=== PATIENT | female | born 1960 | race Caucasian/White ===

== ENCOUNTER 2018-11-24 09:51 | Observation (INO) | payer MEDICARE, SELFPAY ==
[2018-11-24] VITALS (21 sets, daily range): BP systolic 126–184; BP diastolic 66–98; PULSE 53–68; RESP 15–18; TEMP 36.7–37; O2SAT 95–99; BMI 30.2; BMI 31.1
--- NOTE | 2018-11-24 09:56 | RAD_ITS ---
STUDY: X-RAY CHEST REASON FOR EXAM: Female, 58 years old. Chest pain. TECHNIQUE: Single AP portable view of the chest. COMPARISON: Comparison is made with prior study dated December 20, 2013. FINDINGS: EKG electrodes are seen. The lungs are clear and expanded. There is no demonstrated pleural abnormality. Normal size heart. Normal mediastinum and tyra. Normal visualized pulmonary arteries. There is atherosclerotic calcification of the aortic arch with tortuosity. There are diffuse degenerative changes of the visualized thoracic spine. Normal visualized ribs, clavicles, and shoulders. There is no demonstrated abnormality of the visualized soft tissue structures of the upper abdomen. RAD/Chest 1 View (Portable) IMPRESSION: No acute abnormality is seen. Electronically Signed: Sher Andersen MD at 10:34 EST , Service support ,
--- NOTE | 2018-11-24 09:56 | EKG12_ITS ---
Test Reason : CP Blood Pressure : / mmHG Vent. Rate : 053 BPM Atrial Rate : 053 BPM P-R Int : 218 ms QRS Dur : 088 ms QT Int : 442 ms P-R-T Axes : 041 081 057 degrees QTc Int : 414 ms Sinus bradycardia with 1st degree A-V block Otherwise normal ECG Confirmed by CAROLYN GREWAL, RAIZA ([id number]), manuscript editor VARUN SANDOVAL ([id number]) on 11/27/2018 3:22:45 PM Referred By: Abraham Mccracken Confirmed By:RAIZA LEON MD
[2018-11-24 10:07] LABS: Absolute Lymphocyte Count 3.77 X10^3/ul (0.83-4.51); Absolute Neutrophil Count 5.9 X10^3/uL (2.0-7.7); Basophil# 0.02 X10^3/uL; Basophil% 0.2 % (0-1); Eosinophil# 0.13 X10^3/uL; Eosinophils% 1.3 % (0-5); Lymphocyte # 3.77 X10^3/ul (4.0); Lymphocyte % 36.4 % (19-41); Mean Corp Hgb Conc 34.1 g/gl (32-36); Mean Corpuscular Hgb 31.2 pg (27.0-32.0); Mean Corpuscular Volume 91.3 fL (81-99); Mean Platelet Vol. 9.8 fl (6.2-12.0); Monocyte# 0.58 X10^3/uL; Monocyte% 5.6 % (0-10); Neutrophil # 5.85 X10^3/uL (2.7-7.7); Neutrophil % 56.3 % (47-70); Platelet Count 254 K/mm3 (150-450); RBC Distribution Width CV 12.2 % (11.6-14.6); RBC Distribution Width SD 40.4 fl (35.1-43.9); Red Blood Count 4.49 M/mm3 (4.2-5.4); White Blood Count 10.4 K/mm3 (4.4-11.0)
[2018-11-24 10:10] LABS: POSITIVE COUNT NO; POSITIVE DIFFERENTIAL NO; POSITIVE MORPHOLOGY NO
[2018-11-24 10:17] LABS: Anion Gap 9 (5-15); BUN 11 mg/dL (7-18); BUN/Creat Ratio 21.3 RATIO (10-20); Chloride 104 mmol/L (98-107); Creatinine, Serum 0.52 mg/dL (0.55-1.02); EST Glomerular Filtration Rate 129 mL/min (>60); Est Glom Filt Rate - Afr Amer 156 mL/min (>60); Estimated Creatinine Clearance 83.67 ml/min; Glucose 110 mg/dL (74-106); Potassium 3.2 mmol/L (3.5-5.1); Sodium Level 141 mmol/L (136-145)
--- NOTE | 2018-11-24 11:23 | PCM.HP.STD ---
Problem List (1) Chest pain Status: Acute (2) Essential (primary) hypertension Status: Chronic (3) Dyslipidemia Status: Chronic (4) Crohns disease Status: Chronic History of Present Illness Date of Admission: 11/24/18 Chief Complaint: Chest pain The patient is a 58 year old F medical history is again for hypertension, dyslipidemia previous tobacco use (did quit 2 months prior to admission) who presents with chest pain. Patient reports 1 month history of intermittent chest pain. She has associated chest pain with activity she does notice increasing pain with minimal activity. She also does complain of intermittent lightheadedness. Patient was scheduled to have undergone stress test by Dr. Avila as outpatient he however did complain of chest pain prior to the procedure patient was therefore sent to the ED. In the emergency department initial set of cardiac enzymes came back unremarkable. Given her significant risk factors decision was made to admit patient for subsequent evaluation in the hospital. Past Medical History Past Medical History (Chronic Problems): Chronic Problems Essential (primary) hypertension (Chronic) Dyslipidemia (Chronic) Crohns disease (Chronic) Allergies Penicillins [PCN] Allergy (Verified 11/24/18 09:58) Unknown Tetracyclines Adverse Reaction (Verified 11/24/18 09:58) Nausea Home Medications: Ambulatory Orders Medication Instructions Recorded Aspirin [Ecotrin] 81 mg PO DAILY 12/21/13 Esomeprazole Mag Trihydrate 40 mg PO DAILY 12/21/13 [Nexium] Gabapentin [Neurontin] 600 mg PO BID PRN 12/21/13 Lisinopril [Zestril] 10 mg PO DAILY 12/21/13 Atenolol 25 mg PO DAILY 11/24/18 Atorvastatin Calcium [Lipitor] 0 mg PO QHS 11/24/18 Chlorthalidone 25 mg PO DAILY 11/24/18 Mesalamine [Pentasa] 1,000 mg PO 4X/DAY 11/24/18 Surgical History: - - wrist surgery 20 years ago right side Smoking Status: Former smoker - *Family History Paternal History Items: Heart Disease Offspring History Items: Heart Disease - Son had left main disease Review of Systems Constitutional: Denies: Anorexia, Chills, Fever, Night Sweats, Weight Change HEENT: Denies: Head Aches, Sinus Congestion, Sinus Drainage Cardiovascular: Reports: Chest Pain, Light Headedness. Denies: Orthopnea, Palpitations, Paroxysmal Noc. Dyspnea Respiratory: Denies: Cough, Shortness of breath at rest, Shortness of breath upon exertion, Sputum production Gastrointestinal: Denies: Abdominal Pain, Hematemesis, Hematochezia, Nausea, Melena, Vomiting Genitourinary: Denies: Dysuria, Frequency, Hematuria, Urgency Musculoskeletal: Denies: Joint Pain, Joint Tenderness Skin: Denies: Rash Neurological: Denies: Focal weakness, Numbness, Tingling Psychiatric: Denies: Homicidal Ideations, Suicidal Ideations Hematologic/ Lymphatic: Denies: Easy Bruising, Easy Bleeding VTE Information - Inpt Only VTE Present on Admission: No VTE Mechan Device Prophylaxis: Knee High XIOMARA Hose VTE Pharm Prophylaxis ordered?: Yes Patient Problems: Active and Suspected Problems Chest pain (Acute) Objective: GENERAL: cooperative HEENT: Atraumatic; moist oral mucosa EYES; Anicteric, Normal Conjunctiva NECK; supple, normal thyroid, no distended JVD. RESPIRATORY: Diminished to auscultation bilaterally, CARDIOVASCULAR: Regular S1 S2, no audible murmurs GI: soft, non-tender, normoactive bowel sounds, : No Renal angle tenderness; EXTREMITIES: No edema, no clubbing, no cyanosis. MUSCULOSKELETAL: No Joint Tenderness; no muscle waisting NEURO: Awake; no lateralizing signs. SKIN: No Rash PSYCH; Normal affect - Physical Exam Vital Signs Temp Pulse Resp BP Pulse Ox 98.2 F 60 15 178/83 H 96 11/24/18 09:52 11/24/18 09:52 11/24/18 09:52 11/24/18 09:52 11/24/18 09:52 Oxygen Delivery Method Room Air Weight: 70.307 kg Body Mass Index (BMI) 30.2 Finger Stick Blood Glucose 92 Laboratory Tests Past 24 Hrs 11/24/18 11/24/18 09:54 09:54 WBC 10.4 RBC 4.49 Hgb 14.0 Hct 41.0 MCV 91.3 MCH 31.2 MCHC 34.1 RDW 12.2 RDW Differential 40.4 Plt Count 254 MPV 9.8 Immature Gran % (Auto) 0.200 Neut % (Auto) 56.3 Lymph % (Auto) 36.4 [place] % (Auto) 5.6 Eos % (Auto) 1.3 Baso % (Auto) 0.2 Absolute Neuts (auto) 5.9 Absolute Lymphs (auto) 3.77 Total Counted Not Reportable Sodium 141 Potassium 3.2 L Chloride 104 Carbon Dioxide 28.0 Anion Gap 9 BUN 11 Creatinine 0.52 L Estim Creat Clear Calc 83.67 Est GFR (MDRD) Af Amer 156 Est GFR (MDRD) Non-Af 129 BUN/Creatinine Ratio 21.3 H Glucose 110 H Calcium 9.0 Magnesium 2.0 Troponin I < 0.015 Assessment/Plan All Active Problems Chest pain (Acute) Patient is a 58-year-old lady with past medical history cigar for hypertension, dyslipidemia Crohn's disease presented with exertional chest pain 1. Chest pain: Has significant risk factors including hypertension, dyslipidemia and previous tobacco use as well as family history of premature CAD. She has been admitted to a monitored bed with plans to rule out MT with serial cardiac enzymes. Plan also patient to have undergone a nuclear stress test in a.m. however given his secondary risk factors consultation was placed to cardiology. Patient already on aspirin did continue 2D echo ordered for subsequent evaluation 2. Hypertension-blood pressure controlled, home medications continued with dose adjustment as needed 3. Dyslipidemia-patient is on statin therapy, continued at home dose 4. Crohn's disease patient is on mesalamine did continue 5. Previous tobacco use patient did quit 2 months prior to admission 6. DVT prophylaxis SC Lovenox Code Visit OBSV E&M: [id number] Initial observation care L3
--- NOTE | 2018-11-24 11:46 | ECHOD_ITS ---
Reason For Study: CP Procedure This was a 2D Doppler, Color Flow transthoracic echocardiogram. The exam was of adequate technical quality. Exam performed portable in patient room. Left Ventricle Normal LV size. Left ventricular systolic function is normal. The estimated ejection fraction is 65 %. Transmitral doppler flow suggestive of impaired relaxation of left ventricle. No regional wall motion abnormalities noted. Right Ventricle Normal RV size. Normal systolic function. Atria Normal left atrium. Normal right atrium. No doppler evidence for ASD. Bubble contrast study negative for right to left interatrial shunt. Mitral Valve There is no mitral annular calcification. Normal mitral valve. Trivial mitral valve insufficiency. Tricuspid Valve Normal tricuspid valve. Trivial tricuspid valve insufficiency. Aortic Valve Trisinus/trileaflet aortic valve. Normal aortic valve. Pulmonic Valve The pulmonic valve is not well visualized. Great Vessels The aortic root is not well visualized. Pericardium/Pleural No pericardial effusion. MMode/2D Measurements & Calculations LVIDd: 4.0 cm IVSd: 1.3 cm LA dimension: 3.9 cm LVIDs: 2.5 cm LVPWd: 0.71 cm FS: 39.1 % LAV(MOD-bp): 37.4 ml LA A4 area: 17.0 cm2 RA A4 area: 13.3 cm2 LAV(MOD-bp) Indexed: 22.2 ml/m2 LAV(MOD-sp2): 31.9 ml LAV(MOD-sp4): 44.5 ml Time Measurements MV dec time: 0.27 sec Doppler Measurements & Calculations MV E max constantino: 90.6 cm/sec Lat Peak E' Constantino: 12.6 cm/sec Med Peak E' Constantino: 8.8 cm/sec MV A max constantino: 111.4 cm/sec E/E' lat: 7.2 E/E' med: 10.3 MV E/A: 0.81 MV V2 max: 102.6 cm/sec MV P1/2t max constantino: 93.6 cm/sec Ao V2 max: 174.5 cm/sec MV max P.2 mmHg MV P1/2t: 94.1 msec Ao max P.2 mmHg MV V2 mean: 55.8 cm/sec MV dec slope: 291.6 cm/sec2 Ao V2 mean: 112.4 cm/sec MV mean P.5 mmHg MVA(P1/2t): 2.3 cm2 Ao mean P.8 mmHg MV V2 VTI: 34.1 cm Ao V2 VTI: 37.1 cm LV V1 max: 151.8 cm/sec PA V2 max: 119.3 cm/sec LV V1 max P.2 mmHg LV V1 mean P.1 mmHg LV V1 mean: 94.8 cm/sec LV V1 VTI: 28.6 cm Interpretation Summary Left ventricular systolic function is normal. The estimated ejection fraction is 65 %. Trivial mitral valve insufficiency. Trivial tricuspid valve insufficiency. Transmitral doppler flow suggestive of impaired relaxation of left ventricle Bubble contrast study negative for right to left interatrial shunt. Ordering Physician: Abraham Mccracken Referring Physician: Abraham Mccracken Performed By: Mahesh Garvey RCS
[2018-11-24 12:00] LABS: D-Dimer Quantitative (DVT/PE) 0.28 FEU/ug/m (0.27-0.49)
[2018-11-24 12:15] LABS: Thyroid Stim Hormone (TSH) 1.75 uIU/mL (0.358-3.74)
--- NOTE | 2018-11-24 12:39 | EKG12_ITS ---
Test Reason : CP ADMIT, CP NOW Blood Pressure : / mmHG Vent. Rate : 060 BPM Atrial Rate : 060 BPM P-R Int : 226 ms QRS Dur : 080 ms QT Int : 440 ms P-R-T Axes : 025 065 037 degrees QTc Int : 440 ms Sinus rhythm with 1st degree A-V block Low voltage QRS (limb leads) Confirmed by ROSITA GREWAL, SHEEBA ([id number]), editor producer VARUN SANDOVAL ([id number]) on 11/26/2018 8:28:47 AM Referred By: Abraham Mccracken Confirmed By:SHEEBA BECKER MD
--- NOTE | 2018-11-24 14:24 | PCM.CONS.C ---
Problem List (1) Unstable angina Status: Acute (2) Dyslipidemia Status: Chronic (3) Essential (primary) hypertension Status: Chronic (4) Crohns disease Status: Chronic (5) Bilateral carotid bruits Status: Acute Reason for Consult Date of Consultation: 11/24/18 History of Present Illness: The patient is a 58 year old white female with a past medical history of hyperlipidemia, hypertension, and Crohn's disease who presents for symptoms concerning for unstable angina pectoris. The patient states for some time now she has been having waxing and waning chest discomfort. This involves the left chest, left axillary area, and left upper extremity with associated left upper extremity paresthesias. She can feel somewhat more short of breath with this. She has had episodes of dizziness. She has had no near syncope or syncope. She has been evaluated by her PCP and at one time told her heart rate was slower than usual . She was referred to [facility] cardiology for evaluation. There she was scheduled for an outpatient transthoracic echocardiogram and exercise tolerance test. She states today she was having recurrent discomfort when she arrived for her outpatient study at the [facility] center. She was told at that time she was high risk and was referred to the [facility] emergency department for further evaluation and care as an inpatient including consideration for diagnostic cardiac catheterization. She has denied orthopnea or PND or peripheral pitting edema. She states that she does have gastrointestinal related issues with her Crohn's disease. Otherwise she believes she has been relatively active. She notes that she has undergone evaluation in the past. Based upon medical records received it appears that in December 2014 she had a myocardial perfusion scan performed which was reported as demonstrating no evidence of myocardial ischemia or scarring with a gated LVEF of 65%. The details of the entire report are unavailable at this time for review. She does note that her father had a history of CAD, CABG, and a permanent pacemaker. She also notes her son, who in a motor vehicle accident, on organ donation evaluation was subsequently given a diagnosis of having premature CAD with a maker lesion. [] Past Medical History Allergies/Adverse Reactions: Allergies Penicillins [PCN] Allergy (Verified 11/24/18 09:58) Unknown Tetracyclines Adverse Reaction (Verified 11/24/18 09:58) Nausea Home Medications: Ambulatory Orders Medication Instructions Recorded Aspirin [Ecotrin] 81 mg PO DAILY 12/21/13 Esomeprazole Mag Trihydrate 40 mg PO DAILY PRN 12/21/13 [Nexium] Gabapentin [Neurontin] 600 mg PO BID PRN 12/21/13 Lisinopril [Zestril] 10 mg PO DAILY 12/21/13 Atenolol 25 mg PO DAILY 11/24/18 Atorvastatin Calcium [Lipitor] 20 mg PO QHS 11/24/18 Chlorthalidone 25 mg PO DAILY 11/24/18 Levothyroxine Sodium 50 mcg PO DAILY 11/24/18 Mesalamine [Pentasa] 1,000 mg PO 4X/DAY 11/24/18 Past Medical History (Chronic Problems): Chronic Problems Essential (primary) hypertension (Chronic) Dyslipidemia (Chronic) Crohns disease (Chronic) Surgical History: - - wrist surgery 20 years ago right side - *Family History Paternal History Items: Heart Disease Offspring History Items: Heart Disease - Son had left main disease Lives: Spouse/ Significant Other Smoking Status: Former smoker Alcohol: None Drugs: None Review of Systems - Review of Systems General: Denies: Fever, Night Sweats, Fatigue Cardiovascular: Reports: Chest Discomfort, Chest Discomfort at Rest, Shortness of Breath, Shortness of Breath at Rest, Dizziness. Denies: Orthopnea, PND, Peripheral Edema, Palpitations, Lightheadedness, Near Syncope, Syncope Respiratory: Reports: Shortness of Breath. Denies: Cough, Sputum Production, Hemoptysis Gastrointestinal: Denies: Hematemesis, Hematochezia, Melena Genitourinary: Denies: Dysuria, Hematuria Skin: Denies: Rash Subjectve: Is a 58-year-old white female who appears to be resting comfortably at the moment in no acute distress. However she does complain of waxing and waning left-sided chest/left axillary discomfort. Objective: Vital Signs Temp Pulse Resp BP Pulse Ox 98.0 F 56 L 16 145/66 H 98 11/24/18 11:53 11/24/18 12:34 11/24/18 11:53 11/24/18 12:34 11/24/18 12:38 Oxygen Delivery Method Room Air Weight: 158 lb 8.198 oz Body Mass Index (BMI) 31.1 Finger Stick Blood Glucose 92 General: Awake, Alert, Oriented x 3, Cooperative, No Acute Distress, Ill Appearing HEENT: Atraumatic, Normocephalic, PERRL, EOMI, Sclera Non Icteric Oral: Moist Mucosa Neck: Supple, Good ROM, No JVD Lungs: Clear to auscultation Cardiovascular: Regular Rhythm, Normal S1, Normal S2 Vascular: John Carotid Artery Bruits Abdomen: Bowel Sounds Present, Soft, Non Tender Extremities: No Cyanosis, No Clubbing, No edema Neurological: No Focal Motor or Sensory Deficit Psych/Mental Status: Appropriate 11/24/18 09:54: WBC 10.4, RBC 4.49, Hgb 14.0, Hct 41.0, MCV 91.3, MCH 31.2, MCHC 34.1, RDW 12.2, RDW Differential 40.4, Plt Count 254, MPV 9.8, Immature Gran % (Auto) 0.200, Neut % (Auto) 56.3, Lymph % (Auto) 36.4, [place] % (Auto) 5.6, Eos % (Auto) 1.3, Baso % (Auto) 0.2, Absolute Neuts (auto) 5.9, Total Counted Not Reportable 11/24/18 09:54: Sodium 141, Potassium 3.2 L, Chloride 104, Carbon Dioxide 28.0, Anion Gap 9, BUN 11, Creatinine 0.52 L, Est GFR (MDRD) Af Amer 156, Est GFR (MDRD) Non-Af 129, BUN/Creatinine Ratio 21.3 H, Glucose 110 H, Calcium 9.0, Magnesium 2.0, Troponin I < 0.015 11/24/18 09:54: D-Dimer Quant (PE/DVT) 0.28 11/24/18 13:35: Troponin I < 0.015 Rhythm: Sinus rhythm EKG: Sinus rhythm; first-degree AV block; low voltage QRS ECHO: Pending CXR: Preliminary evaluation: No acute cardiopulmonary disease process appreciated; please see official report Assessment/Plan 1. Unstable angina pectoris The patient presents with symptoms, not otherwise explained, concerning for unstable angina pectoris. She was to have outpatient noninvasive studies at the [facility] Center however she was deemed, based on her ongoing symptoms, as high risk and recommended for further inpatient evaluation care with diagnostic cardiac catheterization. At the present time the patient continues with waxing and waning left-sided chest and left axillary discomfort. Her initial cardiac enzyme is negative. Her initial ECG demonstrates no acute ECG changes. At the present time she will continue medical therapy. This will include agents such as aspirin, antiplatelet therapy, nitrates, beta-blockers, lipid-lowering agents, anticoagulants, all as deemed appropriate. She is evaluation with a transthoracic echocardiogram as well. However in the interim it would not be unreasonable to consider the patient for further evaluation with diagnostic cardiac catheterization. The procedure and risks were discussed with her. She was agreeable to this approach. 2. Hyperlipidemia The patient does have a history of hyperlipidemia. She will continue risk factor evaluation care as deemed appropriate. 3. Hypertension The patient does have history of hypertension. She will need her medications adjusted bring her blood pressure under better control. 4. Crohn's disease The patient does have a history of Crohn's disease. She will continue evaluation care per internal medicine. This may be the etiology of the patient's hypokalemia. She will need her potassium levels supplemented. 5. Carotid artery bruits Of note, the patient does have bilateral carotid artery bruits. This does raise concern of peripheral arterial occlusive disease. She should be considered for further evaluation with a carotid artery duplex study. This note was generated with AnyLeaf dictation software. It may contain incorrect words, spelling, and punctuation that were not noted in checking the note before signing.
--- NOTE | 2018-11-24 14:40 | CASEMGMT ---
According to the [facility] website, the following are in-network tertiary facilities: [facility], [facility], [facility], [facility], [facility], [facility], [facility], [place], [facility], and . Yaa ORTIZ CM
[2018-11-24] MEDS: Atenolol 25 MG Tablet PO (14:54)
[2018-11-24] MEDS: Lisinopril 10 MG Tablet PO (14:54)
[2018-11-24] MEDS: Pantoprazole Sodium 40 MG Tablet PO (14:54)
[2018-11-24] MEDS: Aspirin E.C. 81 MG Tablet PO (14:54)
[2018-11-24] MEDS: TICAGRELOR 90 MG TABLET 180 MG PO (15:10)
--- NOTE | 2018-11-24 15:18 | ED.VISSUMM ---
- ER Visit Summary Date of Service: 11/24/18 Chief Complaint: Chest pain History of Present Illness: The patient is a 58 F who presents with a progressive intermittent chest pain of the left chest that radiates into the left axilla and the back. She saw her primary care physician for this and was referred to [facility] cardiology Dr. Avila. She went there today to have stress testing when she arrived she was experiencing the chest discomfort was given nitroglycerin and resolved. Is felt the patient should come to the hospital for further evaluation. She notes that she did have a nuclear stress test about 5 years ago. She notes all the symptoms initially began with some dizziness and bradycardia. She is a former smoker but states she only smoked for a few years after her son was killed in a car accident. She notes that he on autopsy was found to have a maker lesion. She notes her father had a extensive cardiac history that developed after the age of 55. She also notes a history of hypertension hypercholesterolemia as well as obstructive sleep apnea hypothyroidism and fibromyalgia. Physical Examination: Afebrile vital signs are stable Gen: Well-nourished well-developed Head: Normocephalic atraumatic Eyes: Perrl EOMI ENT: TMs clear no rhinorrhea moist mucous membranes Neck: Supple no lymphadenopathy no JVD nontender CVS: Regular rate rhythm no murmurs normal S1-S2 Respiratory: No distress clear to auscultation bilaterally chest nontender Abdomen: Soft nontender nondistended normal bowel sounds no masses Back: Nontender Extremity: Nontender no edema Skin: Normal color no rash Neuro: alert orientated ?3 CN II-XII intact normal strength sensation reflexes gait cerebellar Psych: Normal affect normal mood Test Results: EKG shows a sinus rhythm at a rate of 53. CBC chemistries troponin were essentially negative potassium 3.2. Chest x-ray no acute findings. Emergency Department Course and Treatment: Patient was discussed with the hospitalist and the patient will be brought into the the hospital. Cardiology consult will be obtained. Impression: 1. Chest pain This note was generated with 3Jam dictation software. It may contain incorrect words, spelling, and punctuation that were not noted in review of the chart prior to signing ED Disposition - Plan for ED Patient: Disposition: Acute Care Hospital [facility] Chief Complaint: Chest Pain
--- NOTE | 2018-11-24 15:53 | CL.D_ITS ---
Patient Name: ISAAC LOPEZ Study Date: 11/24/2018 Performing: Russ Floyd MD Ht: 59.84 inches 152 cm : 1960 Wt: 158.73 lbs 72 kg Age: 58 Gender: female BSA: 1.69 PROCEDURE(S) PERFORMED [id number] CLINICAL PROFILE AND INDICATIONS Indications: Suspected CAD Heart Failure: None Stress/Imaging Stress/Image Study Performed: No Angina Classification Anginal Classification w/in 2 Weeks: CCS IV CAD Presentations: Unstable angina. CONCLUSIONS Elevated Left Ventricular End Diastolic Pressure Normal LV size, wall motion,and systolic function LVEF: by LV gram 65 % RECOMMENDATIONS Risk factor modification Medical therapy Follow up with primary care physician DESCRIPTION OF PROCEDURE The patient arrived to the procedure lab. The risks and benefits of the procedure as well as a full d escription of our services here and current unavailability of surgical backup were fully explained to the patient and/or their significant other prior to the catheterization. The Timeout was completed, verifying the correct patient and procedure. The patient's procedural site was prepped and draped in the usual fashion. Local anesthetic was given subcutaneously to right groin region with Lidocaine 2%. Using a modified Seldinger technique, arterial access was obtained via the right femoral artery, a 4 Fr sheath was inserted Left Coronary Artery selective angiography was performed in multiple views us ing a 4 Fr. JL5 catheter. Right Coronary Artery selective angiography was then performed in multiple views using a 4 Fr. 3DRC catheter. Left Ventriculography was performed in DONALDSON projection using a 4 Fr . Pigtail catheter. LV to AO pullback pressures were then recorded.The arterial sheath was pulled and manual compression applied until hemostasis is achieved. CORONARY ANGIOGRAPHY DOMINANCE: Right Dominant LEFT HEART ASSESSMENT Left Ventricular Ejection Fraction: by LV Gram 65 % Normal LV wall motion Elevated Left Ventricular End Diastolic Pressure LVEDP: 17 mmHg LEFT MAIN: Mild calcification LEFT ANTERIOR DECENDING ARTERY: Mild luminal irregularities PROX LAD: Mild calcification CIRCUMFLEX ARTERY: Angiographically normal RIGHT CORONARY ARTERY: Mild luminal irregularities VALVE FINDINGS: Normal Aortic Valve function Normal Mitral Valve function AORTIC ROOT: Angiographically normal COMPLICATIONS No Complications PROCEDURE MEDICATIONS Versed 1 mg IV Oxygen: 2 L/min via nasal cannula Brilinta 180 mg PO @ 11/24/2018 15:10:16 Potassium Chloride 40 mEq PO 11/24/2018 15:14:11 SUMMARY OF HEMODYNAMIC DATA Time AIR REST ECG 15:14:19 AO 165/92 (123) SA 15:26:47 LV 170/-2, 17 15:34:08 LV 166/-9, 12 15:34:14 LV 185/-5, 21 15:35:20 LVp 174/-5, 21 15:35:25 AOp 172/75 (112) 15:35:30 Signed By Russ Floyd MD On 11/24/2018 15:51:43 Russ Floyd MD
--- NOTE | 2018-11-24 16:00 | NURSING ---
This RN taking over care at this time
--- NOTE | 2018-11-24 17:30 | CDU_ITS ---
Reason For Study: Brut Rt. Velocities/BP Lt. Velocities/BP Prox CCA 99.1/29.9 cm/sec. Prox CCA 97.1/25.1 cm/sec. Mid CCA 97.9/27.6 cm/sec. Mid CCA 94.6/23.4 cm/sec. Dist CCA 79.2/27 cm/sec. Dist CCA 86.2/24.3 cm/sec. Prox ICA 92/18.2 cm/sec. Prox ICA 102/32.2 cm/sec. Mid ICA 99.7/36.4 cm/sec. Mid ICA 78.6/27.9 cm/sec. Dist ICA 83.3/28.7 cm/sec. Dist ICA 68.8/27.4 cm/sec. Rt. ICA/CCA = 1.02. Lt. ICA/CCA = 1.08. Prox ECA 81.5/8.21 cm/sec. Prox ECA 61.1/8.37 cm/sec. Rt. Vert. 75.7/28.2 cm/sec. Lt. Vert. 68/15.2 cm/sec. Right Extracranial There is heterogeneous, smooth atherosclerotic plaque noted in the right common carotid artery. There is heterogeneous, smooth atherosclerotic plaque noted in the right internal carotid artery. There is intimal thickening but no significant atherosclerotic plaque noted in the right external carotid artery. Antegrade flow is noted in the right vertebral artery. Left Extracranial There is homogeneous, smooth atherosclerotic plaque noted in the left common carotid artery. There is heterogeneous, smooth atherosclerotic plaque noted in the left internal carotid artery. There is intimal thickening but no significant atherosclerotic plaque noted in the left external carotid artery. Antegrade flow is noted in the left vertebral artery. Procedure Carotid Duplex [id number]. Exam performed portable in patient room. Interpretation Summary Mild (<50%) stenosis right extracranial internal carotid. Mild (<50%) stenosis left extracranial internal carotid. Flow within the vertebral arteries is antegrade bilaterally. Ordering Physician: Russ Floyd Referring Physician: Negrito Rojas M.D. Performed By: Roseanne Gonzalez RVT, RDCS and Student
[2018-11-24] MEDS: Nitroglycerin Oint 1 INCH PACKET TRANSDERM. (18:09)
[2018-11-24] MEDS: Zolpidem Tartrate 5 MG Tablet PO (21:37)
[2018-11-24] MEDS: Gabapentin 600 MG Tablet PO (21:37)
[2018-11-24] MEDS: Atorvastatin Calcium 20 MG Tablet PO (21:39)
[2018-11-25] VITALS (13 sets, daily range): BP systolic 100–151; BP diastolic 55–80; PULSE 58–72; RESP 16; TEMP 36.3–36.9; O2SAT 95–97
[2018-11-25] MEDS: Nitroglycerin Oint 1 INCH PACKET TRANSDERM. ×2 (00:51→05:27)
[2018-11-25] MEDS: Levothyroxine 50 MCG Tablet PO (05:27)
[2018-11-25 06:52] LABS: Hematocrit 39.6 % (37-47); Hemoglobin 13.7 g/dl (12.0-15.0)
[2018-11-25 07:15] LABS: Anion Gap 8 (5-15); BUN 14 mg/dL (7-18); BUN/Creat Ratio 23.3 RATIO (10-20); Calcium,Total 8.6 mg/dL (8.5-10.1); Chloride 106 mmol/L (98-107); EST Glomerular Filtration Rate 108 mL/min (>60); Est Glom Filt Rate - Afr Amer 131 mL/min (>60); Estimated Creatinine Clearance 114.59 ml/min; Glucose 112 mg/dL (74-106); Potassium 3.4 mmol/L (3.5-5.1); Sodium Level 141 mmol/L (136-145)
[2018-11-25] MEDS: Mesalamine 1.2 GM Tablet 2.4 GM PO (10:02)
[2018-11-25] MEDS: Chlorthalidone 50 MG Tablet 25 MG PO (10:02)
[2018-11-25] MEDS: Enoxaparin 40 MG/0.4 ML Syringe SC (10:03)
[2018-11-25] MEDS: Pantoprazole Sodium 40 MG Tablet PO (10:11)
[2018-11-25] MEDS: Aspirin E.C. 81 MG Tablet PO (10:11)
[2018-11-25] MEDS: Atenolol 25 MG Tablet PO (10:11)
[2018-11-25] MEDS: Lisinopril 10 MG Tablet PO (10:39)
--- NOTE | 2018-11-25 17:12 | PCM.PN.CARD ---
Subjectve: The patient looks better and states she feels better today. She describes no ongoing acute symptoms. Objective: Vital Signs Temp Pulse Resp BP Pulse Ox 97.3 F L 60 16 100/69 96 11/25/18 15:55 11/25/18 15:55 11/25/18 15:55 11/25/18 15:55 11/25/18 15:55 Oxygen Delivery Method Room Air Weight: 158 lb 8.198 oz Body Mass Index (BMI) 31.1 Finger Stick Blood Glucose 92 Intake and Output for Last 24 Hours 11/23/18 11/24/18 11/25/18 23:59 23:59 23:59 Intake Total 780 / 780 600 / 600 Balance 780 / 780 600 / 600 General: Awake, Alert, Oriented x 3, Cooperative, No Acute Distress HEENT: Atraumatic, Normocephalic, PERRL, EOMI, Sclera Non Icteric Oral: Moist Mucosa Neck: Supple, Good ROM, No JVD Lungs: Clear to auscultation Cardiovascular: Regular Rhythm, Normal S1, Normal S2 Vascular: Normal Femoral Pulses Abdomen: Bowel Sounds Present, Soft, Non Tender Extremities: No Cyanosis, No Clubbing, No edema Neurological: No Focal Motor or Sensory Deficit Psych/Mental Status: Appropriate 11/24/18 16:34: Troponin I < 0.015 11/24/18 19:08: Troponin I < 0.015 11/25/18 06:15: Sodium 141, Potassium 3.4 L, Chloride 106, Carbon Dioxide 27.0, Anion Gap 8, BUN 14, Creatinine 0.60, Est GFR (MDRD) Af Amer 131, Est GFR (MDRD) Non-Af 108, BUN/Creatinine Ratio 23.3 H, Glucose 112 H, Calcium 8.6 11/25/18 06:15: Hgb 13.7, Hct 39.6 Rhythm:Sinus rhythm ECHO:Please see official report Carotid artery duplex study: Please see official report Medical Necessity - Tobacco Use Smoking Status: Former smoker Assessment/Plan 1. CAD The patient was found to have minimal to mild luminal irregularities on her diagnostic cardiac catheterization. There did not appear to be obvious findings to explain her symptoms. It does not appear she has known CAD related etiology of her symptoms. At the same time the patient underwent transthoracic echocardiogram. There did not appear to be any obvious findings there to explain her symptoms from a cardiac standpoint. She may need to be considered for further noncardiac evaluation/symptoms of discomfort. In the meantime she does need to continue cardiovascular risk factors evaluation care. 2. Hyperlipidemia The patient does have a history of hyperlipidemia. She will continue risk factor evaluation care as deemed appropriate. 3. Hypertension The patient does have history of hypertension. She will need her medications adjusted bring her blood pressure under better control. 4. Crohn's disease The patient does have a history of Crohn's disease. She will continue evaluation care per internal medicine. This may be the etiology of the patient's hypokalemia. She will need her potassium levels supplemented. 5. Carotid artery bruits Her carotid artery duplex study was reviewed by peripheral vascular surgery. She had mild findings. Thus there was no hemodynamically significant findings to explain any concerns of dizziness or lightheadedness. Overall from a cardiovascular standpoint she is had no acute findings or adverse events. She does not need to continue risk factor evaluation care. She can continue to follow with her primary estimator and drafter supervisor Dr. Ta for further outpatient evaluation of any of her symptoms with respect to possibly dizziness with further noninvasive studies such as ambulatory cardiac rhythm monitors as he had previously discussed with her. Otherwise she may need further evaluation by ENT or neurology. The above was discussed with the patient. She is agreeable to this approach. This note was generated with [employer] software. It may contain incorrect words, spelling, and punctuation that were not noted in checking the note before signing.
--- NOTE | 2018-11-25 17:13 | PCM.DC ---
- Discharge Diagnoses Current Active Problems: Current Active and Chronic Problems Chest pain (Acute) Essential (primary) hypertension (Chronic) Dyslipidemia (Chronic) Crohns disease (Chronic) Unstable angina (Acute) Bilateral carotid bruits (Acute) You will use the following diet at home:: Regular Instructions: ED Chest Pain NonCardiac Allergies/Adverse Reactions: Allergies Penicillins [PCN] Allergy (Verified 11/24/18 09:58) Unknown Tetracyclines Adverse Reaction (Verified 11/24/18 09:58) Nausea Medications to take at Discharge Aspirin [Ecotrin] 81 mg PO DAILY 12/21/13 Esomeprazole Mag Trihydrate [Nexium] 40 mg PO DAILY PRN 12/21/13 Gabapentin [Neurontin] 600 mg PO BID PRN 12/21/13 Lisinopril [Zestril] 10 mg PO DAILY 12/21/13 Atenolol 25 mg PO DAILY 11/24/18 Atorvastatin Calcium [Lipitor] 20 mg PO QHS 11/24/18 Chlorthalidone 25 mg PO DAILY 11/24/18 Levothyroxine Sodium 50 mcg PO DAILY 11/24/18 Mesalamine [Pentasa] 1,000 mg PO 4X/DAY 11/24/18 Primary Care Physician: Negrito Rojas MD [Primary Care Provider] - Please follow up with your Primary Care Physician in: in 5-7 days Test Results: Test results from this visit will be discussed in further detail at your follow-up appointment, if applicable. Please Follow Up With: Jeremiah Ta MD When: in 1-2
--- NOTE | 2018-11-25 17:16 | DCINST_ITS ---
- Discharge Diagnoses Current Active Problems: Current Active and Chronic Problems Chest pain (Acute) Essential (primary) hypertension (Chronic) Dyslipidemia (Chronic) Crohns disease (Chronic) Unstable angina (Acute) Bilateral carotid bruits (Acute) You will use the following diet at home:: Regular Instructions: ED Chest Pain NonCardiac Allergies/Adverse Reactions: Allergies Penicillins [PCN] Allergy (Verified 11/24/18 09:58) Unknown Tetracyclines Adverse Reaction (Verified 11/24/18 09:58) Nausea Medications to take at Discharge Aspirin [Ecotrin] 81 mg PO DAILY 12/21/13 Esomeprazole Mag Trihydrate [Nexium] 40 mg PO DAILY PRN 12/21/13 Gabapentin [Neurontin] 600 mg PO BID PRN 12/21/13 Lisinopril [Zestril] 10 mg PO DAILY 12/21/13 Atenolol 25 mg PO DAILY 11/24/18 Atorvastatin Calcium [Lipitor] 20 mg PO QHS 11/24/18 Chlorthalidone 25 mg PO DAILY 11/24/18 Levothyroxine Sodium 50 mcg PO DAILY 11/24/18 Mesalamine [Pentasa] 1,000 mg PO 4X/DAY 11/24/18 Primary Care Physician: Negrito Rojas MD [Primary Care Provider] - Please follow up with your Primary Care Physician in: in 5-7 days Test Results: Test results from this visit will be discussed in further detail at your follow- up appointment, if applicable. Please Follow Up With: Jeremiah Ta MD When: in 1-2
--- NOTE | 2018-11-25 17:16 | PCM.DC.SUM ---
Discharge Date and Diagnosis - Problem List Patient Problems: Active and Suspected Problems Chest pain (Acute) Unstable angina (Acute) Bilateral carotid bruits (Acute) Date of Admission: 11/24/18 Date of Discharge: 11/25/18 - Primary Discharge Diagnosis Active and Suspected Problems Chest pain (Acute) Unstable angina (Acute) Bilateral carotid bruits (Acute) - Secondary Discharge Diagnosis Chronic Problems Essential (primary) hypertension (Chronic) Dyslipidemia (Chronic) Crohns disease (Chronic) Hospital Course and Treatment Operations: None Summary of Care Provided: Patient is a 58-year-old lady with past medical history cigar for hypertension, dyslipidemia Crohn's disease presented with exertional chest pain 1. Chest pain: Has significant risk factors including hypertension, dyslipidemia and previous tobacco use as well as family history of premature CAD. She has been admitted to a monitored bed with plans to rule out RI with serial cardiac enzymes. Plan also patient to have undergone a nuclear stress test in a.m. however given his secondary risk factors consultation was placed to cardiology. Patient already on aspirin did continue 2D echo ordered for subsequent evaluation patient underwent left heart catheterization on 11/24/2016 which is negative for hemodynamically significant lesions. Patient 2D echo also did not demonstrate any regional wall motion abnormalities. Patient was discharged home instructed to follow-up with primary care physician for workup of noncardiac chest pain. 2. Hypertension-blood pressure controlled, home medications continued with dose adjustment as needed 3. Dyslipidemia-patient is on statin therapy, continued at home dose 4. Crohn's disease patient is on mesalamine did continue 5. Previous tobacco use patient did quit 2 months prior to admission 6. DVT prophylaxis SC Lovenox Patient Problems: Active and Suspected Problems Chest pain (Acute) Unstable angina (Acute) Bilateral carotid bruits (Acute) - Physical Exam General: Alert HEENT: Atraumatic Oral: Moist Mucosa Neurological: Neuro grossly intact Psych/Mental Status: Normal Affect Vital Signs Temp Pulse Resp BP Pulse Ox 97.3 F L 60 16 100/69 96 11/25/18 15:55 11/25/18 15:55 11/25/18 15:55 11/25/18 15:55 11/25/18 15:55 Oxygen Delivery Method Room Air Weight: 71.9 kg Body Mass Index (BMI) 31.1 Finger Stick Blood Glucose 92 Intake and Output for Last 24 Hours 01/28/19 01/29/19 01/30/19 23:59 23:59 23:59 Intake Total 780 / 780 600 / 600 Balance 780 / 780 600 / 600 Laboratory Tests Past 24 Hrs 11/24/18 11/24/18 11/25/18 16:34 19:08 06:15 Hgb Hct Sodium 141 Potassium 3.4 L Chloride 106 Carbon Dioxide 27.0 Anion Gap 8 BUN 14 Creatinine 0.60 Estim Creat Clear Calc 114.59 Est GFR (MDRD) Af Amer 131 Est GFR (MDRD) Non-Af 108 BUN/Creatinine Ratio 23.3 H Glucose 112 H Calcium 8.6 Troponin I < 0.015 < 0.015 11/25/18 06:15 Hgb 13.7 Hct 39.6 Sodium Potassium Chloride Carbon Dioxide Anion Gap BUN Creatinine Estim Creat Clear Calc Est GFR (MDRD) Af Amer Est GFR (MDRD) Non-Af BUN/Creatinine Ratio Glucose Calcium Troponin I Discharge Diet: No Restrictions Home Medications: Medications to take at Discharge Aspirin [Ecotrin] 81 mg PO DAILY 12/21/13 Esomeprazole Mag Trihydrate [Nexium] 40 mg PO DAILY PRN 12/21/13 Gabapentin [Neurontin] 600 mg PO BID PRN 12/21/13 Lisinopril [Zestril] 10 mg PO DAILY 12/21/13 Atenolol 25 mg PO DAILY 11/24/18 Atorvastatin Calcium [Lipitor] 20 mg PO QHS 11/24/18 Chlorthalidone 25 mg PO DAILY 11/24/18 Levothyroxine Sodium 50 mcg PO DAILY 11/24/18 Mesalamine [Pentasa] 1,000 mg PO 4X/DAY 11/24/18 Primary Care Physician: Negrito Rojas MD [Primary Care Provider] - Please follow up with your Primary Care Physician in: in 5-7 days Please Follow Up With: Jeremiah Ta MD When: in 1-2 Patient Instructions: ED Chest Pain NonCardiac Minutes spent on discharge:: 45 Patient Condition:: Stable Medical Necessity - Tobacco Use Smoking Status: Former smoker Meaningful Use Info Meaningful Use Diagnoses (Choose all that apply): None applicable Code Visit OBSV E&M: 61792 Observation care discharge
== END 2018-11-25 17:14 | disposition home or self-care (01) ==
LOC: ED 10:40 → PCU 11:22
PROVIDERS: Internal Medicine Cardiovascular Disease; Admitting Provider Internal Medicine; Emergency Provider Emergency Medicine; Family Provider Internal Medicine; PCP Internal Medicine; Referring Provider Internal Medicine; Visit Provider Internal Medicine
DX: I20.0 Unstable angina (principal); I10 Essential (primary) hypertension; E78.5 Hyperlipidemia, unspecified; K50.90 Crohn's disease, unspecified, without complications; Z87.891 Personal history of nicotine dependence; Z79.899 Other long term (current) drug therapy; Z79.82 Long term (current) use of aspirin; Z82.49 Family history of ischemic heart disease and other diseases of the circulatory system; R09.89 Other specified symptoms and signs involving the circulatory and respiratory systems; G47.33 Obstructive sleep apnea (adult) (pediatric); E03.9 Hypothyroidism, unspecified; M79.7 Fibromyalgia; E87.6 Hypokalemia
CPT/HCPCS: 36415; 71045; 80048; 83735; 84443; 84484; 85014; 85018; 85025; 85379; 93005; 93306; 93458; 93880; 96372; 99152; 99218; 99285; 99406; J7040; Q9967; A4216; C1769; C1894; G0378

== ENCOUNTER → 2018-12-17 22:45 | Outpatient (CLI) | payer MEDICARE, SELFPAY ==
[2018-11-24 11:50] VITALS: BMI 31.1
== END ==
PROVIDERS: Family Provider Internal Medicine; PCP Internal Medicine; Referring Provider Family Medicine; Visit Provider Family Medicine
DX: G47.33 Obstructive sleep apnea (adult) (pediatric) (principal)
CPT/HCPCS: 95810

== ENCOUNTER → 2019-01-04 20:00 | Outpatient (CLI) | payer MEDICARE, SELFPAY ==
[2018-11-24 11:50] VITALS: BMI 31.1
== END ==
PROVIDERS: Family Provider Family Medicine; PCP Family Medicine; Referring Provider Family Medicine; Visit Provider Family Medicine
DX: G47.33 Obstructive sleep apnea (adult) (pediatric) (principal)
CPT/HCPCS: 95811

== ENCOUNTER → 2019-02-01 | Outpatient (CLI) | payer MEDICARE, SELFPAY ==
[2018-11-24 11:50] VITALS: BMI 31.1
== END | disposition home or self-care (01) ==
LOC: SL 10:17
PROVIDERS: Family Provider Family Medicine; PCP Family Medicine; Referring Provider Family Medicine; Visit Provider Family Medicine
DX: Z46.89 Encounter for fitting and adjustment of other specified devices (principal)

== ENCOUNTER → 2022-12-27 | Outpatient (CLI) | payer MEDICARE, SELFPAY ==
[2022-12-27 06:57] LABS: Absolute Lymphocyte Count 3.35 X10^3/uL (0.83-4.51); Absolute Neutrophil Count 7.7 X10^3/uL (2.0-7.7); Basophil# 0.06 X10^3/uL; Basophil% 0.5 % (0-1); Eosinophil# 0.31 X10^3/uL; Eosinophils% 2.6 % (0-5); Hematocrit 42.6 % (37-47); Hemoglobin 14.2 g/dL (12.0-15.0); Lymphocyte # 3.35 X10^3/ul (0.83-4.51); Mean Corp Hgb Conc 33.3 g/dL (32-36); Mean Corpuscular Hgb 31.4 pg (27.0-32.0); Mean Corpuscular Volume 94.2 fL (81-99); Mean Platelet Vol. 9.7 fl (6.2-12.0); Monocyte# 0.55 X10^3/uL; Monocyte% 4.6 % (0-10); NRBC Flagged by Analyzer 0 % (0-5); Neutrophil # 7.65 X10^3/uL (2.7-7.7); Neutrophil % 63.9 % (47-70); Platelet Count 292 K/mm3 (150-450); RBC Distribution Width CV 11.9 % (11.6-14.6); RBC Distribution Width SD 40.9 fl (35.1-43.9); Red Blood Count 4.52 M/mm3 (4.2-5.4)
[2022-12-27 07:28] LABS: Erythrocyte Sedimentation Rate 33 mm/hr (0-30)
[2022-12-27 07:35] LABS: AST(SGOT) 14 U/L (15-37); Alanine Aminotransfer ALT/SGPT 25 U/L (13-56); Albumin, Serum 3.9 g/dL (3.2-5.0); Alkaline Phosphatase 80 U/L (45-117); Anion Gap 4 (5-15); BUN 13 mg/dL (7-18); BUN/Creat Ratio 15.5 RATIO (10-20); Calcium,Total 9.1 mg/dL (8.5-10.1); Chloride 110 mmol/L (98-107); Creatinine, Serum 0.84 mg/dL (0.55-1.02); EST Glomerular Filtration Rate 73 mL/min (>60); Est Glom Filt Rate - Afr Amer 88 mL/min (>60); Glucose 140 mg/dL (74-106); LDH 135 U/L (84-246); Potassium 4.1 mmol/L (3.5-5.1); Protein, Total 7.9 g/dL (6.4-8.2); Sodium Level 140 mmol/L (136-145)
[2022-12-30 12:08] LABS: Anti-Centromere B Ab <0.2 AI (0.0-0.9); Anti-Chromatin <0.2 AI (0.0-0.9); Anti-Jo <0.2 AI (0.0-0.9); Anti-Scleroderma-70 AB 0.7 AI (0.0-0.9); RNP Ab 0.5 AI (0.0-0.9); SJOGREN'S Anti-SS-A test < 0.2 AI (0.0-0.9); SJOGREN'S Anti-SS-B test < 0.2 AI (0.0-0.9); Smith Ab <0.2 AI (0.0-0.9)
[2022-12-30 15:08] LABS: Endomysial Antibody IgA Negative (Negative)
[2022-12-30 18:50] LABS: Anti-dsDNA Ab <1 IU/mL (0-9)
[2022-12-30 19:02] LABS: Immunoglobulin A 255 mg/dL (87-352); t-Transglutaminase IgA <2 U/mL (0-3)
[2023-01-01 00:06] LABS: Albumin 3.9 g/dL (2.9-4.4); Alpha-1-Globulins 0.2 g/dL (0.0-0.4); Cytoplasmic Ab (C-ANCA) <1:20 titer (Neg:<1:20); Gamma Globulin 1.2 g/dL (0.4-1.8); Immunoglobulin A 257 mg/dL (87-352); Immunoglobulin E 551 IU/mL (6-495); Immunoglobulin G 1296 mg/dL (586-1602); Immunoglobulin M 34 mg/dL (26-217); PROEL- TOTAL PROTEIN 7.3 g/dL (6.0-8.5)
[2023-01-01 15:10] LABS: Perinuclear Ab (P-ANCA) <1:20 titer (Neg:<1:20)
[2023-01-02 17:19] LABS: Calprotectin, Stool 37 ug/g (0-120)
[2023-01-02 17:20] LABS: Pancreatic Elastase, Fecal 103 (>200)
== END | disposition home or self-care (01) ==
PROVIDERS: Referring Provider Internal Medicine Gastroenterology; Visit Provider Internal Medicine Gastroenterology
DX: K50.90 Crohn's disease, unspecified, without complications (principal); K58.9 Irritable bowel syndrome, unspecified
CPT/HCPCS: 36415; 80053; 82653; 82784; 82785; 83516; 83615; 83630; 83993; 84165; 85025; 85652; 86140; 86225; 86235; 86255; 86256; 86334; 87177; 87209; 87329; 87493

== ENCOUNTER 2022-12-28 08:03 | Emergency (ER) | payer MEDICARE, MEDICAID, SELFPAY ==
[2022-12-28 08:04] VITALS: BP 178/91; PULSE 81; RESP 16; TEMP 36.3; O2SAT 96; BMI 34.5
--- NOTE | 2022-12-28 08:20 | CT_ITS ---
EXAM: CT ABDOMEN AND PELVIS WITH INTRAVENOUS CONTRAST CLINICAL INDICATION: abdominal pain TECHNIQUE: Helically acquired images were obtained of the abdomen and pelvis with intravenous contrast. This CT exam was performed using one or more of the following dose reduction techniques: automated exposure control, adjustment of the mA and/or kV according to patient size, and/or use of iterative reconstruction technique. This report was created using [employer] report generation technology. CONTRAST: IV 100mL [id number] COMPARISON: None. FINDINGS: LOWER THORAX: Normal. Lung bases are clear. No cardiomegaly. No pericardial effusion. ABDOMEN: LIVER: 2.2 cm hypodensity within hepatic segment 4B of uncertain etiology. GALLBLADDER AND BILE DUCTS: Cholecystectomy clips are in place. No intra- or extrahepatic biliary ductal dilation. PANCREAS: Normal. No focal cystic or solid mass. SPLEEN: Normal. Normal size without focal cystic or solid mass. ADRENALS: Normal. No nodules. KIDNEYS AND URETERS: Normal. Normal renal size and position. No hydronephrosis. STOMACH AND BOWEL: Diverticulosis of the colon noted without evidence of acute diverticulitis. Wall thickening of the terminal ileum which may represent inflammatory or infectious ileitis. PELVIS: APPENDIX: Appendix is visualized and normal in appearance. BLADDER: Normal. REPRODUCTIVE: Uterus is absent. ABDOMEN and PELVIS: INTRAPERITONEAL SPACE: Normal. No ascites or other fluid collection. No free air. BONES/JOINTS: No suspicious lytic or blastic abnormality. SOFT TISSUES: Normal. No discrete abdominal or pelvic wall hernia. VASCULATURE: Normal. Abdominal aorta is non-dilated. LYMPH NODES: Normal. No enlarged lymph nodes. CT/Abdomen/Pelvis W IV Cont ONLY IMPRESSION: 1. Inflammatory or infectious ileitis. 2. Diverticulosis coli. 3. 2.2 cm liver lesion of uncertain etiology. Follow-up MR imaging of further value. Electronically Signed: Cuate Larsen MD at 9:40 EST ,
--- NOTE | 2022-12-28 08:20 | ED.VIS.GI ---
HPI HPI - GI History of Present Illness Chief Complaint: Abd Pain Detail of Chief Complaint: Abdominal pain and diarrhea Informant: patient Narrative Narrative: Patient presents the emergency department complaint of abdominal pain and diarrhea. Patient states she has chronic abdominal pain because she has Crohn's and history of diverticulitis. Patient took in a stool sample as she has had diarrhea for about a week and was diagnosed with C. difficile yesterday. Patient was started on vancomycin p.o. Patient denies any fevers. She denies vomiting. Patient states that she had more severe pain this morning that woke her up. She rates her pain a 9 out of 10. Patient denies urinary symptoms. She denies recent antibiotic usage. No prior history of C. difficile. [facility] Medical History (Updated 12/28/22 @ 10:[address] Karma Henry DO) Depression Diverticulitis Esophageal reflux Hypothyroidism Internal hemorrhoids Lumbago PTSD (post-traumatic stress disorder) Sleep apnea Home Medications aspirin 81 mg tablet,delayed release (Ecotrin Low Strength) 81 mg PO DAILY 12/21/13 [History Last Taken 12/20/13 09:00] gabapentin 600 mg tablet (Neurontin) 600 mg PO BID PRN Pain 12/21/13 [History Last Taken 12/27/22] lisinopril 20 mg tablet 20 mg PO DAILY 12/21/13 [History Last Taken 12/28/22] atenolol 25 mg tablet 25 mg PO DAILY 11/24/18 [History Last Taken 12/27/22] levothyroxine 75 mcg capsule 75 mcg PO DAILY 11/11/22 [History Last Taken 12/28/22] spironolactone 25 mg tablet 25 mg PO DAILY 11/11/22 [History Last Taken Unknown] Lactobacillus acidophilus 20 billion cell capsule (Florajen Acidophilus) 10 mg PO DAILY . 12/28/22 [History Last Taken 12/27/22] atorvastatin 40 mg tablet 40 mg PO QHS CHOLESTEROL 12/28/22 [History Last Taken 12/27/22] famotidine 20 mg tablet 20 mg PO DAILY PRN Stomach Upset 12/28/22 [History Last Taken Unknown] fluticasone propionate 50 mcg/actuation nasal spray,suspension 2 spray intranasal DAILY PRN ALLERGIES 12/28/22 [History Last Taken 1 Week Ago ~12/21/22] loratadine 10 mg tablet 10 mg PO DAILY ALLERGIES 12/28/22 [History Last Taken 12/27/22] metronidazole 500 mg tablet 500 mg PO Q8H #21 tabs 12/28/22 [Rx Last Taken Unknown] multivitamin with folic acid 400 mcg tablet (Therems Multivitamin) 1 tab PO DAILY SUPPLEMENT 12/28/22 [History Last Taken 12/27/22] oxycodone-acetaminophen 5 mg-325 mg tablet 1 tab PO Q6H PRN PRN Pain 3 days #12 TABLETS 12/28/22 [Rx Last Taken Unknown] potassium chloride 20 mEq tablet,extended release(part/cryst) (Klor-Con M) 40 meq PO BID POTASSIUM 12/28/22 [History Last Taken 12/27/22] prednisone 20 mg tablet 60 mg PO DAILY #14 TABLETS 12/28/22 [Rx Last Taken Unknown] vancomycin 125 mg capsule 125 mg PO DIRECTED . 12/28/22 [History Last Taken 12/28/22] Allergy/AdvReac Type Severity Reaction Status Date / Time Penicillins [PCN] Allergy Unknown Verified 12/28/22 08:08 Tetracyclines AdvReac Nausea Verified 12/28/22 08:08 Social History Smoking Status: Former smoker substance use type: marijuana ROS ROS ED Review of Systems ROS Unobtainable: other Constitutional Constitutional ED: Reports lethargy; Denies chills, fever(s), sweats or weight loss Eyes Eyes: Denies blurry vision, change in vision or diplopia ENT ENT ED: Denies rhinorrhea or sore throat Cardiovascular Cardiovascular: Denies chest pain, orthopnea or racing heartbeat Respiratory/Chest Respiratory/Chest: Denies cough, dyspnea, dyspnea on exertion, orthopnea or sputum Gastrointestinal Gastrointestinal: Reports abdominal pain and diarrhea; Denies nausea or vomiting Genitourinary Genitourinary ED: Denies dysuria, hematuria or urinary frequency Musculoskeletal Musculoskeletal: Denies arthralgias, back pain, myalgias or neck pain Integumentary Denies abscess, Abrasions or rash Neurologic Neurologic: Denies headache(s) or weakness Psychiatric Psychiatric: Denies anxiety, depression or suicidal thoughts Endocrine Endocrinology: Denies polydipsia, polyphagia or polyuria Hematologic/Lymphatic Hematologic/Lymphatic: Denies easy bleeding, easy bruising or lymphadenopathy Allergic/Immunologic Allergic/Immunologic ED: Denies mouth swelling, tongue swelling or urticaria EXAM Physical Exam Const Vital Signs: 12/28/22 08:04 12/28/22 10:18 Temperature 97.4 F L 97.8 F Temperature Source Temporal Pulse Rate 81 78 Respiratory Rate 16 16 Blood Pressure 178/91 H 145/78 H Blood Pressure Mean 120 Pulse Ox 96 99 Oxygen Delivery Method Room Air Positive well nourished and well developed General Appearance ED: well developed and NAD HEENT Reports TM's clear and moist mucous membranes normocephalic and atraumatic; Negative for trauma or tenderness Tympanic Membrane ED: Yes TM's clear Eyes PERRL and EOMs intact bilaterally General Eye ED: Negative for pale conjunctiva or scleral icterus Neck no lymphadenopathy, supple and no JVD General: Negative for tenderness Chest Wall inspection of chest normal and palpation of chest normal Chest: Negative for tenderness Resp normal respiratory effort and clear to auscultation bilaterally Effort and Inspection: Negative for respiratory distress or pain with movement Auscultation: Negative for rhonchi, wheezes or diminished lung sounds Cardio regular rate, regular rhythm, S1 normal heart sound, S2 normal heart sound and no murmurs Peripheral Pulses: pulses 2+ throughout GI normal to inspection, nondistended, normoactive bowel sounds, soft to palpation, non-distended and no masses GI Narrative: Abdomen is soft. Patient has diffuse tenderness on exam. There is no rebound, rigidity, or peritoneal signs. Back/Spine no CVA tenderness and no thoracic nor lumbar tenderness Extremity normal to inspection General Extremety ED: Negative for edema General Extremity: Negative for edema Neuro oriented x3, CN's II-XII intact bilaterally, no sensory deficits noted and gait normal Sensorium / Orientation: awake, alert, oriented to person, oriented to place and oriented to time Motor Exam: strength 5/5 throughout and strength abnormal Psych mental status grossly normal Skin no rashes or lesions noted and no wounds MDM MDM MDM Narrative Medical decision making narrative: IV established on arrival. Patient was medicated morphine and Zofran. CBC with differential obtained showed a normal white count of 10.5, hemoglobin 13.8, hematocrit 39.7, platelets 282. Chemistries unremarkable. Lactate was normal at 1.2. Urinalysis was normal. Patient did have a CT scan with IV contrast that was read by radiology as inflammatory or infectious ileitis. I did discuss case with her bean snipper who recommended that we add Flagyl as well as prednisone. I will write her prescription for [place] for pain. Patient does have a history of Crohn's. Lab Data Labs: Laboratory Results - last 24 hr 12/28/22 12/28/22 12/28/22 08:41 08:41 08:41 WBC 10.5 RBC 4.35 Hgb 13.8 Hct 39.7 MCV 91.3 MCH 31.7 MCHC 34.8 RDW Std Deviation 39.6 RDW Coeff of Jessica 11.8 Plt Count 282 MPV 9.9 Immature Gran % (Auto) 0.200 Neut % (Auto) 62.6 Lymph % (Auto) 29.1 Ray % (Auto) 5.2 Eos % (Auto) 2.5 Baso % (Auto) 0.4 Absolute Neuts (auto) 6.6 Absolute Lymphs (auto) 3.05 Nucleated RBC % 0 Sodium 138 Potassium 4.1 Chloride 106 Carbon Dioxide 24.0 Anion Gap 8 BUN 13 Creatinine 0.70 Estim Creat Clear Calc 59.09 Est GFR (MDRD) Af Amer 108 Est GFR (MDRD) Non-Af 89 BUN/Creatinine Ratio 18.5 Glucose 131 H Lactic Acid 1.2 Calcium 9.1 Urine Color Urine Clarity Urine pH Ur Specific [place] Urine Protein Urine Glucose (UA) Urine Ketones Urine Occult Blood Urine Nitrite Urine Bilirubin Urine Urobilinogen Ur Leukocyte Esterase Urine RBC Urine WBC Ur Squamous Epith Cells Urine Bacteria Urine Mucus 12/28/22 09:00 WBC RBC Hgb Hct MCV MCH MCHC RDW Std Deviation RDW Coeff of Jessica Plt Count MPV Immature Gran % (Auto) Neut % (Auto) Lymph % (Auto) Ray % (Auto) Eos % (Auto) Baso % (Auto) Absolute Neuts (auto) Absolute Lymphs (auto) Nucleated RBC % Sodium Potassium Chloride Carbon Dioxide Anion Gap BUN Creatinine Estim Creat Clear Calc Est GFR (MDRD) Af Amer Est GFR (MDRD) Non-Af BUN/Creatinine Ratio Glucose Lactic Acid Calcium Urine Color Yellow Urine Clarity Clear Urine pH 6.0 Ur Specific [place] 1.015 Urine Protein Negative Urine Glucose (UA) Normal Urine Ketones Negative Urine Occult Blood 50 H Urine Nitrite Negative Urine Bilirubin Negative Urine Urobilinogen Normal Ur Leukocyte Esterase Negative Urine RBC 0 SEEN Urine WBC 0-5 SEEN Ur Squamous Epith Cells 0 SEEN Urine Bacteria RARE Urine Mucus 0 SEEN Radiography Diagnostic Testing: Clinical Impression(s) from Imaging Studies Abdomen/Pelvis CT 12/28/22 08:20 IMPRESSION: 1. Inflammatory or infectious ileitis. 2. Diverticulosis coli. 3. 2.2 cm liver lesion of uncertain etiology. Follow-up MR imaging of further value. Electronically Signed: Cuate Larsen MD at 9:40 EST Reading Location ID and State: [facility] / [place] Tel , Service support , Differential Diagnosis Differential Diagnosis: In the differential for her abdominal pain would be diverticulitis versus bowel obstruction versus bowel perforation versus colitis. Treatment and Re-Evaluation :: Patient was feeling improved after treatment morphine and Zofran. Discharge Plan Triage Chief Complaint: Abd Pain ED Provider: Karma Henry Dx/Rx/DC Orders Clinical Impression: Abdominal pain, Ileitis, C. difficile colitis Instructions: What Is C. Diff?, My C. Diff Infection Treatment Plan, ED Abdominal Pain Unkn Cause Fem Prescriptions: New metronidazole 500 mg tablet 500 mg PO Q8H Qty: 21 0RF prednisone 20 mg tablet 60 mg PO DAILY Qty: 14 0RF oxycodone-acetaminophen [oxycodone-acetaminophen] 5-325 mg tablet 1 tab PO Q6H PRN PRN (Reason: Pain) 3 Days Qty: 12 0RF No Action spironolactone 25 mg tablet 25 mg PO DAILY levothyroxine 75 mcg capsule 75 mcg PO DAILY gabapentin [Neurontin] 600 MG tablet 600 mg PO BID PRN (Reason: Pain) lisinopril 20 MG tablet 20 mg PO DAILY aspirin [Ecotrin Low Strength] 81 MG tablet,delayed release (DR/EC) 81 mg PO DAILY atenolol 25 MG tablet 25 mg PO DAILY atorvastatin 40 mg tablet 40 mg PO QHS Label Comments: TAKE 1 TABLET BY MOUTH DAILY AT BEDTIME. FOR CHOLESTEROL potassium chloride [Klor-Con M20] 20 mEq tablet,ER particles/crystals 40 meq PO BID Label Comments: TAKE 2 TABLETS BY MOUTH IN THE MORNING AND 2 TABLETS IN THE EVENING famotidine 20 mg tablet 20 mg PO DAILY PRN (Reason: Stomach Upset) Label Comments: TAKE 1 TAB TWICE DAILY NEEDED. TAKE 1 TAB TWICE DAILY. MAY TAKE AN ADDITIONAL TABLET NEEDED. fluticasone propionate 50 mcg/actuation spray,suspension 2 spray INTRANASAL DAILY PRN (Reason: ALLERGIES) Label Comments: USE 2 SPRAYS IN EACH NOSTRIL ONCE DAILY. RINSE MOUTH AFTER USE. loratadine 10 mg tablet 10 mg PO DAILY Label Comments: TAKE 1 TABLET BY MOUTH EVERY DAY Florajen Acidophilus 20 billion cell Capsule 10 mg PO DAILY multivitamin with folic acid [Therems Multivitamin] 400 mcg tablet 1 tab PO DAILY Label Comments: TAKE 1 TABLET BY MOUTH EVERY DAY vancomycin 125 mg capsule 125 mg PO DIRECTED Primary Care Provider: Care Physician,No Primary Referrals: Friend,Arthur, [Med Staff - Active Staff] - 3-5 Days Care Physician,No Primary [Primary Care Provider] - Disposition Disposition: Home, Self Care Discharge Date/Time: 12/28/22 10:38
[2022-12-28 08:59] LABS: Absolute Lymphocyte Count 3.05 X10^3/uL (0.83-4.51); Absolute Neutrophil Count 6.6 X10^3/uL (2.0-7.7); Basophil# 0.04 X10^3/uL; Basophil% 0.4 % (0-1); Eosinophil# 0.26 X10^3/uL; Eosinophils% 2.5 % (0-5); Hematocrit 39.7 % (37-47); Hemoglobin 13.8 g/dL (12.0-15.0); Lymphocyte # 3.05 X10^3/ul (0.83-4.51); Lymphocyte % 29.1 % (19-41); Mean Corp Hgb Conc 34.8 g/dL (32-36); Mean Corpuscular Hgb 31.7 pg (27.0-32.0); Mean Corpuscular Volume 91.3 fL (81-99); Mean Platelet Vol. 9.9 fl (6.2-12.0); Monocyte# 0.54 X10^3/uL; Monocyte% 5.2 % (0-10); NRBC Flagged by Analyzer 0 % (0-5); Neutrophil # 6.57 X10^3/uL (2.7-7.7); Neutrophil % 62.6 % (47-70); Platelet Count 282 K/mm3 (150-450); RBC Distribution Width CV 11.8 % (11.6-14.6); RBC Distribution Width SD 39.6 fl (35.1-43.9); Red Blood Count 4.35 M/mm3 (4.2-5.4); White Blood Count 10.5 K/mm3 (4.4-11.0)
[2022-12-28 09:05] LABS: Mucous, Urine 0 SEEN /hpf (<or=2+); Red Blood Cells-Urine 0 SEEN /hpf (0-5); Squamous Epithelial Cells - UA 0 SEEN /hpf (5-10)
[2022-12-28 09:10] LABS: Anion Gap 8 (5-15); BUN 13 mg/dL (7-18); BUN/Creat Ratio 18.5 RATIO (10-20); Calcium,Total 9.1 mg/dL (8.5-10.1); Chloride 106 mmol/L (98-107); EST Glomerular Filtration Rate 89 mL/min (>60); Est Glom Filt Rate - Afr Amer 108 mL/min (>60); Estimated Creatinine Clearance 59.09 ml/min; Glucose 131 mg/dL (74-106); Potassium 4.1 mmol/L (3.5-5.1); Sodium Level 138 mmol/L (136-145)
[2022-12-28 09:13] LABS: Color, Urine Yellow (Yellow); Glucose, Dipstick Normal (Normal); Ketone-Dipstick Negative (Negative); Leukocyte Esterase-Dipstick Negative /ul (Negative); Nitrite-Dipstick Negative (Negative); Occult Blood-Urine 50 /ul (Negative); Protein-Dipstick Negative (Negative); Specific Gravity, Urine 1.015 (1.002-1.030); Urine Bilirubin Dipstick Negative (Negative); Urine Clarity Clear (Clear); Urine Urobilinogen Normal (Normal)
[2022-12-28 09:15] LABS: Lactic Acid 1.2 mmol/L (0.4-1.9)
[2022-12-28] MEDS: 0.9% Normal Saline 1,000 ML 1000 ML IV (09:18)
[2022-12-28] MEDS: Morphine 4 MG/ML Syringe IV (09:18)
[2022-12-28] MEDS: Ondansetron 4 MG/2 ML Vial IV (09:18)
[2022-12-28 09:29] LABS: White Blood Cells 0-5 SEEN /hpf (0-5)
[2022-12-28 09:30] LABS: Bacteria RARE /hpf (None Seen)
[2022-12-28 10:18] VITALS: BP 145/78; PULSE 78; RESP 16; TEMP 36.6; O2SAT 99
== END 2022-12-28 10:38 | disposition home or self-care (01) ==
PROVIDERS: Emergency Provider Emergency Medicine; Visit Provider Emergency Medicine
DX: R10.9 Unspecified abdominal pain (principal); K50.90 Crohn's disease, unspecified, without complications; A04.72 Enterocolitis due to Clostridium difficile, not specified as recurrent; F12.90 Cannabis use, unspecified, uncomplicated; Z87.891 Personal history of nicotine dependence; Z79.82 Long term (current) use of aspirin; Z79.899 Other long term (current) drug therapy
CPT/HCPCS: 99283; 96374; 96375; 74177; 80048; 81001; 83605; 85025; Q9967; J2405

== ENCOUNTER 2022-12-30 05:09 | Inpatient (IN) | payer MEDICARE, MEDICAID, SELFPAY ==
[2022-12-30 05:10] VITALS: BP 154/99; PULSE 68; RESP 14; TEMP 36.2; O2SAT 98; BMI 35.2
--- NOTE | 2022-12-30 05:29 | RAD_ITS ---
EXAM: XR ABDOMEN, 2 VIEWS AND XR CHEST, 1 VIEW CLINICAL INDICATION: Pain TECHNIQUE: Frontal view of the chest, frontal view of the abdomen/pelvis and upright or decubitus view of the abdomen. This report was created using [employer] report generation technology. COMPARISON: None. FINDINGS: CHEST: LUNGS AND PLEURAL SPACES: Unremarkable. No consolidation or edema. No pneumothorax. No effusion. HEART: Unremarkable. Cardiac silhouette not enlarged. MEDIASTINUM: Central airways and mediastinal contour are unremarkable. ABDOMEN: INTRAPERITONEAL SPACE: No free air. GASTROINTESTINAL TRACT: Some scattered air-fluid levels on the upright projection without dilated bowel loops. ORGANS: Cholecystectomy clips. No organomegaly. No abnormal calcifications. TUBES, LINES AND DEVICES: None. BONES/JOINTS: No acute findings. SOFT TISSUES: No acute findings. RAD/Acute Abdomen Inc Chest IMPRESSION: Some scattered air-fluid levels on the upright projection without dilated bowel loops. This may indicate an ileus. Electronically Signed: Nelson Archibald MD at 6:25 EST ,
--- NOTE | 2022-12-30 05:30 | EDS_ITS ---
HPI History of Present Illness Chief Complaint: Nausea/Vomiting/Diarrhea Informant: patient Narrative Narrative: Presents with nausea vomiting diarrhea abdominal pain. She states she is trying to take her meds but cannot keep her meds down for C. difficile colitis. She states she has been having about 2 to 3 weeks of some cramping intermittent diarrhea that had worsened. She had stool studies done on the third of this month. She was called Friday and started the vancomycin. She was then seen in the ED. CAT scan showed some ileitis. They discussed case with GI. They added Flagyl and prednisone. She states she is still having the diarrhea. She has cramps. Now she is getting nausea and vomiting and just cannot keep her meds down. She feels weak and tired. She has never had C. difficile colitis before. Last admission to the hospital was over a year ago. Last antibiotics were last December in 2021. She has had C-sections, hysterectomy but never had any bowel surgery for her Crohn's. She is not currently on any Biologics. [facility] Medical History Clostridioides difficile infection Depression Diverticulitis Esophageal reflux Hypothyroidism Internal hemorrhoids Lumbago PTSD (post-traumatic stress disorder) Sleep apnea Home Medications aspirin 81 mg tablet,delayed release (Ecotrin Low Strength) 81 mg PO DAILY 12/21/13 [History Last Taken 12/20/13 09:00] gabapentin 600 mg tablet (Neurontin) 600 mg PO BID PRN Pain 12/21/13 [History Last Taken 12/27/22] lisinopril 20 mg tablet 20 mg PO DAILY 12/21/13 [History Last Taken 12/28/22] atenolol 25 mg tablet 25 mg PO DAILY 11/24/18 [History Last Taken 12/27/22] levothyroxine 75 mcg capsule 75 mcg PO DAILY 11/11/22 [History Last Taken 12/28/22] spironolactone 25 mg tablet 25 mg PO DAILY 11/11/22 [History Last Taken Unknown] Lactobacillus acidophilus 20 billion cell capsule (Florajen Acidophilus) 10 mg PO DAILY . 12/28/22 [History Last Taken 12/27/22] atorvastatin 40 mg tablet 40 mg PO QHS CHOLESTEROL 12/28/22 [History Last Taken 12/27/22] famotidine 20 mg tablet 20 mg PO DAILY PRN Stomach Upset 12/28/22 [History Last Taken Unknown] fluticasone propionate 50 mcg/actuation nasal spray,suspension 2 spray intranasal DAILY PRN ALLERGIES 12/28/22 [History Last Taken 1 Week Ago ~12/21/22] loratadine 10 mg tablet 10 mg PO DAILY ALLERGIES 12/28/22 [History Last Taken 12/27/22] metronidazole 500 mg tablet 500 mg PO Q8H #21 tabs 12/28/22 [Rx Last Taken Unknown] multivitamin with folic acid 400 mcg tablet (Therems Multivitamin) 1 tab PO DAILY SUPPLEMENT 12/28/22 [History Last Taken 12/27/22] oxycodone-acetaminophen 5 mg-325 mg tablet 1 tab PO Q6H PRN PRN Pain 3 days #12 TABLETS 12/28/22 [Rx Last Taken Unknown] potassium chloride 20 mEq tablet,extended release(part/cryst) (Klor-Con M) 40 meq PO BID POTASSIUM 12/28/22 [History Last Taken 12/27/22] prednisone 20 mg tablet 60 mg PO DAILY #14 TABLETS 12/28/22 [Rx Last Taken Unknown] vancomycin 125 mg capsule 125 mg PO DIRECTED . 12/28/22 [History Last Taken 12/28/22] Allergy/AdvReac Type Severity Reaction Status Date / Time Penicillins [PCN] Allergy Unknown Verified 12/28/22 08:08 Tetracyclines AdvReac Nausea Verified 12/28/22 08:08 Social History Smoking Status: Former smoker substance use type: marijuana ROS ROS ED Constitutional Constitutional ED: Reports subjective ENT ENT ED: Denies rhinorrhea or sore throat Cardiovascular Cardiovascular: Reports palpitations and other Details: When patient was vomiting she had palpitations but they resolved right afterwards. ; Denies chest pain Respiratory/Chest Respiratory/Chest: Denies cough or dyspnea Gastrointestinal Gastrointestinal: Reports abdominal pain, diarrhea, nausea and vomiting; Denies constipation or melena Genitourinary Genitourinary ED: Denies hematuria Musculoskeletal Musculoskeletal: Denies myalgias Integumentary Denies rash Neurologic Neurologic: Denies headache(s) Endocrine Endocrinology: Denies polydipsia or polyuria Hematologic/Lymphatic Hematologic/Lymphatic: Denies easy bleeding or easy bruising Allergic/Immunologic Allergic/Immunologic ED: Denies urticaria EXAM Physical Exam Narrative Exam Narrative: Patient awake alert laying in bed. She looks mildly ill but not toxic at all. She carries on normal conversation. HEENT: Shows mildly dry mucous membranes. Eyes show no icterus No JVD on the neck. Lungs are clear bilaterally. Heart is regular with a rate about 75-80. No murmur gallop or rub Abdomen has multiple prior scars. Bowel sounds are mildly increased. Her abdomen does not look distended. She has minimal tenderness but it is diffuse and nonfocal. No rebound or guarding. Extremities show no acute trauma. Neurologically she is awake alert and appropriate. Const Vital Signs: 12/30/22 05:10 12/30/22 07:13 Temperature 97.2 F L Temperature Source Temporal Pulse Rate 68 68 Respiratory Rate 14 Blood Pressure 154/99 H 168/88 H Blood Pressure Mean 117 114 Pulse Ox 98 Oxygen Delivery Method Room Air MDM MDM MDM Narrative Medical decision making narrative: My independent interpretation of the patient's 4 view abdominal series shows clear chest. She does have some increased gas in the small bowel. But no sign of obstruction. There is some gas and stool mixed in the colon. Final reading by radiology is Some scattered air-fluid levels on the upright projection without dilated bowel loops.? This may indicate an ileus. She does have a rise of her white count since she was here 2 days ago. It is now 15.6. Hemoglobin platelets are normal. Electrolytes show no marked abnormalities. Glucose was mildly up at 147. She did have signs of dehydration with a BUN to creatinine ratio of 23.7. Her liver function test showed no marked abnormalities. Her lactic acid was up at 2.1. This is a rise from just 2 days ago. This patient has been getting good and appropriate outpatient therapy. But she comes back in due to inability to keep down her meds. I do not think we need to repeat a CAT scan at this time as one was done 2 days ago. But I think she does need admission for hydration, control of symptoms and get her stable enough to keep her meds down. Case was discussed directly with the hospitalist. Lab Data Attestation: I reviewed the patient's lab results. Labs: Laboratory Results - last 24 hr 12/30/22 12/30/22 12/30/22 05:50 05:50 05:50 WBC 15.6 H RBC 4.33 Hgb 13.8 Hct 39.6 MCV 91.5 MCH 31.9 MCHC 34.8 RDW Std Deviation 39.7 RDW Coeff of Jessica 11.7 Plt Count 278 MPV 9.6 Immature Gran % (Auto) 0.600 Neut % (Auto) 83.1 H Lymph % (Auto) 10.9 L Ogle % (Auto) 5.3 Eos % (Auto) 0.0 Baso % (Auto) 0.1 Absolute Neuts (auto) 12.9 H Absolute Lymphs (auto) 1.70 Nucleated RBC % 0 Sodium 140 Potassium 3.8 Chloride 106 Carbon Dioxide 28.0 Anion Gap 6 BUN 18 Creatinine 0.76 Estim Creat Clear Calc 54.42 Est GFR (MDRD) Af Amer 99 Est GFR (MDRD) Non-Af 82 BUN/Creatinine Ratio 23.7 H Glucose 147 H Lactic Acid 2.1 H* Calcium 9.1 Total Bilirubin 0.30 AST 14 L ALT 24 Alkaline Phosphatase 74 Total Protein 7.5 Albumin 3.7 Globulin 3.8 Albumin/Globulin Ratio 1.0 Radiography Diagnostic Testing: Clinical Impression(s) from Imaging Studies Acute Abdomen Series 12/30/22 05:29 IMPRESSION: Some scattered air-fluid levels on the upright projection without dilated bowel loops. This may indicate an ileus. Electronically Signed: Nelson Archibald MD at 6:25 EST , Management Discussion w/another healthcare provider: Hospitalist Discharge Plan Triage Chief Complaint: Nausea/Vomiting/Diarrhea ED Provider: Henry Weiner Dx/Rx/DC Orders Clinical Impression: C. difficile colitis, Nausea vomiting and diarrhea, Dehydration, Failure of outpatient treatment Prescriptions: No Action spironolactone 25 mg tablet 25 mg PO DAILY levothyroxine 75 mcg capsule 75 mcg PO DAILY gabapentin [Neurontin] 600 MG tablet 600 mg PO BID PRN (Reason: Pain) lisinopril 20 MG tablet 20 mg PO DAILY aspirin [Ecotrin Low Strength] 81 MG tablet,delayed release (DR/EC) 81 mg PO DAILY atenolol 25 MG tablet 25 mg PO DAILY atorvastatin 40 mg tablet 40 mg PO QHS Label Comments: TAKE 1 TABLET BY MOUTH DAILY AT BEDTIME. FOR CHOLESTEROL potassium chloride [Klor-Con M20] 20 mEq tablet,ER particles/crystals 40 meq PO BID Label Comments: TAKE 2 TABLETS BY MOUTH IN THE MORNING AND 2 TABLETS IN THE EVENING famotidine 20 mg tablet 20 mg PO DAILY PRN (Reason: Stomach Upset) Label Comments: TAKE 1 TAB TWICE DAILY NEEDED. TAKE 1 TAB TWICE DAILY. MAY TAKE AN ADDITIONAL TABLET NEEDED. fluticasone propionate 50 mcg/actuation spray,suspension 2 spray INTRANASAL DAILY PRN (Reason: ALLERGIES) Label Comments: USE 2 SPRAYS IN EACH NOSTRIL ONCE DAILY. RINSE MOUTH AFTER USE. loratadine 10 mg tablet 10 mg PO DAILY Label Comments: TAKE 1 TABLET BY MOUTH EVERY DAY Florajen Acidophilus 20 billion cell Capsule 10 mg PO DAILY multivitamin with folic acid [Therems Multivitamin] 400 mcg tablet 1 tab PO DAILY Label Comments: TAKE 1 TABLET BY MOUTH EVERY DAY vancomycin 125 mg capsule 125 mg PO DIRECTED metronidazole 500 mg tablet 500 mg PO Q8H Qty: 21 0RF prednisone 20 mg tablet 60 mg PO DAILY Qty: 14 0RF oxycodone-acetaminophen [oxycodone-acetaminophen] 5-325 mg tablet 1 tab PO Q6H PRN PRN (Reason: Pain) 3 Days Qty: 12 0RF Primary Care Provider: Care Physician,No Primary Referrals: Kashmir Leong MD [Non-Staff] - Disposition Disposition: Acute Care [facility]
[2022-12-30] MEDS: Morphine 4 MG/ML Syringe IV (05:47)
[2022-12-30] MEDS: 0.9% Normal Saline 1,000 ML 1000 ML IV (05:48)
[2022-12-30] MEDS: Ondansetron 4 MG/2 ML Vial IV (05:48)
[2022-12-30 06:06] LABS: Absolute Neutrophil Count 12.9 X10^3/uL (2.0-7.7); Basophil# 0.02 X10^3/uL; Basophil% 0.1 % (0-1); Hematocrit 39.6 % (37-47); Hemoglobin 13.8 g/dL (12.0-15.0); Lymphocyte % 10.9 % (19-41); Mean Corp Hgb Conc 34.8 g/dL (32-36); Mean Corpuscular Hgb 31.9 pg (27.0-32.0); Mean Corpuscular Volume 91.5 fL (81-99); Mean Platelet Vol. 9.6 fl (6.2-12.0); Monocyte# 0.82 X10^3/uL; Monocyte% 5.3 % (0-10); NRBC Flagged by Analyzer 0 % (0-5); Neutrophil # 12.92 X10^3/uL (2.7-7.7); Neutrophil % 83.1 % (47-70); Platelet Count 278 K/mm3 (150-450); RBC Distribution Width CV 11.7 % (11.6-14.6); RBC Distribution Width SD 39.7 fl (35.1-43.9); Red Blood Count 4.33 M/mm3 (4.2-5.4); White Blood Count 15.6 K/mm3 (4.4-11.0)
[2022-12-30 06:25] LABS: AST(SGOT) 14 U/L (15-37); Alanine Aminotransfer ALT/SGPT 24 U/L (13-56); Albumin, Serum 3.7 g/dL (3.2-5.0); Alkaline Phosphatase 74 U/L (45-117); Anion Gap 6 (5-15); BUN 18 mg/dL (7-18); BUN/Creat Ratio 23.7 RATIO (10-20); Calcium,Total 9.1 mg/dL (8.5-10.1); Chloride 106 mmol/L (98-107); Creatinine, Serum 0.76 mg/dL (0.55-1.02); EST Glomerular Filtration Rate 82 mL/min (>60); Est Glom Filt Rate - Afr Amer 99 mL/min (>60); Estimated Creatinine Clearance 54.42 ml/min; Globulin 3.8 g/dL (2.2-4.2); Glucose 147 mg/dL (74-106); Potassium 3.8 mmol/L (3.5-5.1); Protein, Total 7.5 g/dL (6.4-8.2); Sodium Level 140 mmol/L (136-145)
[2022-12-30 06:41] LABS: Lactic Acid 2.1 mmol/L (0.4-1.9)
[2022-12-30 07:13] VITALS: BP 168/88; PULSE 68
--- NOTE | 2022-12-30 07:18 | PCM.HP.STD ---
HPI - General General Date of Admission: 12/30/22 Date of Service: 12/30/22 Chief Complaint: nausea, vomiting and diarrhea HPI Narrative ISAAC LOPEZ, is a 62 F with a PMH who presents via the ED with a complaint of nausea, vomiting and diarrhea which has been going on for ~ 2-3 weeks. She does have a history of Crohnb's disease and sees Dr Billy. She was seen in the ED ~ 12/26/2022 and was diagnosed with C Diff infection; she was started on oral vancomycin and oral prednisone added on. CT then showed ileitis. She also had flagyl added on. She has still been having diarrhea and abdominal pain, nausea, and vomiting and unable to keep her meds down, so she came in to the ED. She denied any fever, chills, chest pain, palpitations or any urinary symptoms. Review of systems is otherwise negative. Vitals in the ED were BP of 167/91, WA of 68, RR of 18 and temp of 97.7F. She was saturating at 99% on room air. CBC showed wbc of 15.6, Hb of 13.8, platelets of 278; chemistry was remarkable for lactic acid of 2.1, but was otherwise unremarkable. Acute abdomen series showed some scattered air fluid levels without dilated bowel loops indicative of ileus. She is being admitted to be managed for acute flare up of Crohn's disease as well as C diff, failed outpatient therapy. [facility] Medical History Clostridioides difficile infection Depression Diverticulitis Esophageal reflux Hypothyroidism Internal hemorrhoids Lumbago PTSD (post-traumatic stress disorder) Sleep apnea Home Medications aspirin 81 mg tablet,delayed release (Ecotrin Low Strength) 81 mg PO DAILY 12/21/13 [History Last Taken 12/20/13 09:00] gabapentin 600 mg tablet (Neurontin) 600 mg PO BID PRN Pain 12/21/13 [History Last Taken 12/27/22] lisinopril 20 mg tablet 20 mg PO DAILY 12/21/13 [History Last Taken 12/28/22] atenolol 25 mg tablet 25 mg PO DAILY 11/24/18 [History Last Taken 12/27/22] levothyroxine 75 mcg capsule 75 mcg PO DAILY 11/11/22 [History Last Taken 12/28/22] spironolactone 25 mg tablet 25 mg PO DAILY 11/11/22 [History Last Taken Unknown] Lactobacillus acidophilus 20 billion cell capsule (Florajen Acidophilus) 10 mg PO DAILY . 12/28/22 [History Last Taken 12/27/22] atorvastatin 40 mg tablet 40 mg PO QHS CHOLESTEROL 12/28/22 [History Last Taken 12/27/22] famotidine 20 mg tablet 20 mg PO DAILY PRN Stomach Upset 12/28/22 [History Last Taken Unknown] fluticasone propionate 50 mcg/actuation nasal spray,suspension 2 spray intranasal DAILY PRN ALLERGIES 12/28/22 [History Last Taken 1 Week Ago ~12/21/22] loratadine 10 mg tablet 10 mg PO DAILY ALLERGIES 12/28/22 [History Last Taken 12/27/22] metronidazole 500 mg tablet 500 mg PO Q8H #21 tabs 12/28/22 [Rx Last Taken Unknown] multivitamin with folic acid 400 mcg tablet ([facility] Multivitamin) 1 tab PO DAILY SUPPLEMENT 12/28/22 [History Last Taken 12/27/22] oxycodone-acetaminophen 5 mg-325 mg tablet 1 tab PO Q6H PRN PRN Pain 3 days #12 TABLETS 12/28/22 [Rx Last Taken Unknown] potassium chloride 20 mEq tablet,extended release(part/cryst) (Klor-Con M) 40 meq PO BID POTASSIUM 12/28/22 [History Last Taken 12/27/22] prednisone 20 mg tablet 60 mg PO DAILY #14 TABLETS 12/28/22 [Rx Last Taken Unknown] vancomycin 125 mg capsule 125 mg PO DIRECTED . 12/28/22 [History Last Taken 12/28/22] Allergy/AdvReac Type Severity Reaction Status Date / Time Penicillins [PCN] Allergy Unknown Verified 12/28/22 08:08 Tetracyclines AdvReac Nausea Verified 12/28/22 08:08 Social History (Updated 12/30/22 @ 08:57 by Selina Castellon) Smoking Status: Former smoker substance use type: marijuana ROS Review of Systems ROS Unobtainable: Denies due to encephalopathy Constitutional Constitutional: Reports anorexia, change in weight, fatigue, malaise and weakness; Denies chills or fever(s) Eyes Eyes: Denies change in vision ENT HEENT: Denies dysphagia, headache(s) or sore throat Cardiovascular Cardiovascular: Denies chest pain, dyspnea on exertion, edema, lightheadedness, orthopnea, palpitations, rapid heart rate or syncope Respiratory/Chest Respiratory/Chest: Denies cough, shortness of breath at rest or shortness of breath with exertion Gastrointestinal Gastrointestinal: Reports abdominal pain, diarrhea, nausea and vomiting; Denies constipation or dyspepsia Genitourinary Genitourinary: Denies burning urination or dysuria Musculoskeletal Musculoskeletal: Denies arthralgias Neurologic Neurologic: Denies confusion, disequilibrium, dizziness, focal weakness, numbness, seizures or syncope Psychiatric Psychiatric: Denies anxiety or depression Hematologic/Lymphatic Hematologic/Lymphatic: Denies anemia Vital Signs Vital Signs Vital Signs: 12/30/22 05:10 12/30/22 07:13 Temperature 97.2 F L Temperature Source Temporal Pulse Rate 68 68 Respiratory Rate 14 Blood Pressure 154/99 H 168/88 H Blood Pressure Mean 117 114 Pulse Ox 98 Oxygen Delivery Method Room Air Weight Weight: 180 lb 1.883 oz Body Mass Index (BMI) 35.2 Physical Exam Const alert, oriented x3 and no apparent distress HEENT normocephalic, head/scalp atraumatic and moist oral mucous membranes Mouth: oral and palatal mucosa normal Eyes PERRL, EOMs intact bilaterally and conjunctivae normal Neck no lymphadenopathy, supple and no JVD Resp normal respiratory effort, no retractions, no use of accessory muscles and clear to auscultation bilaterally Cardio regular rate, regular rhythm, S1 normal heart sound, S2 normal heart sound and no murmurs GI normal to inspection, nondistended, normoactive bowel sounds GI Narrative: mild generalised tenderness, no guarding or rebound tenderness Extremity normal to inspection and no clubbing, cyanosis or edema Neuro oriented x3, CN's II-XII intact bilaterally, moves all extremities and no focal motor deficits Sensorium / Orientation: awake and alert Motor Exam: strength 5/5 throughout Psych affect normal Results Lab / Micro Data Result Diagrams: 12/30/22 05:50 12/30/22 05:50 Labs: Laboratory Results - last 24 hr 12/30/22 05:50: WBC 15.6 H, RBC 4.33, Hgb 13.8, Hct 39.6, MCV 91.5, MCH 31.9, MCHC 34.8, RDW Std Deviation 39.7, RDW Coeff of Jessica 11.7, Plt Count 278, MPV 9.6, Immature Gran % (Auto) 0.600, Neut % (Auto) 83.1 H, Lymph % (Auto) 10.9 L, [place] % (Auto) 5.3, Eos % (Auto) 0.0, Baso % (Auto) 0.1, Absolute Neuts (auto) 12.9 H, Absolute Lymphs (auto) 1.70, Nucleated RBC % 0 12/30/22 05:50: Sodium 140, Potassium 3.8, Chloride 106, Carbon Dioxide 28.0, Anion Gap 6, BUN 18, Creatinine 0.76, Estim Creat Clear Calc 54.42, Est GFR (MDRD) Af Amer 99, Est GFR (MDRD) Non-Af 82, BUN/Creatinine Ratio 23.7 H, Glucose 147 H, Calcium 9.1, Total Bilirubin 0.30, AST 14 L, ALT 24, Alkaline Phosphatase 74, Total Protein 7.5, Albumin 3.7, Globulin 3.8, Albumin/Globulin Ratio 1.0 12/30/22 05:50: Lactic Acid 2.1 H* Radiology Impression Acute Abdomen Series 12/30/22 05:29 IMPRESSION: Some scattered air-fluid levels on the upright projection without dilated bowel loops. This may indicate an ileus. Electronically Signed: Nelson Archibald MD at 6:25 EST , Assessment & Plan Assessment/Plan (1) Crohns disease: (2) C. difficile colitis: (3) Nausea vomiting and diarrhea: (4) C. difficile colitis: PLAN: Plan #Acute flare up of Crohn's disease Admitted to [facility] Patient was diagnosed with Crohn's flareup on outpatient basis and started on p.o. prednisone. She was also recently diagnosed with C. difficile and started on oral vancomycin by his symptoms persisted. She therefore failed outpatient therapy. Was started on IV Solu-Medrol. Keep NPO. Hydrate gently with IV fluids. Consult gastroenterology. #C. difficile colitis: WBC is elevated at 15 but kidney function is normal. On oral vancomycin. We will continue. #Hypertension: On atenolol as well as lisinopril and spironolactone #Hyperlipidemia: On famotidine #Hypothyroidism: On Synthroid DVT prophylaxis: Lovenox CODE STATUS: Full code Patient counseled extensively about different types of CODE STATUS including full code, DNR CCA and DNR CCA. Patient elects to be full code. Total [id number] time 16 minutes. Total time spent on seeing patient, reviewing chart and labs, discussing plan with patient, reviewing specialist notes, discussion of plan with nursing and ancillary staff and documentation in the EMR: 77 mins Charges/Coding Visit Charges Inpatient E&M: 71319 Init Hosp L3 Procedures Hospitalists Procedures: 27941 Advncd Care Plan 30 Min
--- NOTE | 2022-12-30 07:25 | NURSING ---
MED SURG KORAM CDIFFICILE COLITIS, NAUSEA, VOMITING, DIARRHEA, LACTIC ACIDOSIS
[2022-12-30 07:27] VITALS: BP 167/91; PULSE 68; RESP 18; TEMP 36.5; O2SAT 99
[2022-12-30 08:50] VITALS: BMI 33.8
[2022-12-30 08:51] VITALS: BP 152/71; PULSE 63; RESP 16; TEMP 36.5; O2SAT 97
[2022-12-30] MEDS: Aspirin E.C. 81 MG Tablet PO (09:22)
[2022-12-30] MEDS: Atenolol 25 MG Tablet PO (09:22)
[2022-12-30] MEDS: oxyCODONE 5 MG Tablet PO ×2 (09:22→18:12)
[2022-12-30] MEDS: Lisinopril 20 MG Tablet PO (09:22)
[2022-12-30] MEDS: 0.9% Normal Saline 1,000 ML 125 ML IV ×3 (09:27→20:48)
[2022-12-30 10:01] LABS: Reflex Lactate? Y
--- NOTE | 2022-12-30 11:50 | CASEMGMT ---
RN ELIOT Face to Face with patient for initial transition planning/care coordination assessment. RN CM introduced self and role at [facility]. Patient lying in bed, alert and oriented. Patient willing to participate in assessment and is able to answer all questions appropriately. Care providers, pharmacy, and demographics verified. Patient wishes to discharge home, denies need for home health at this time. Patient states she has no further needs or concerns at this time. CM to follow for discharge planning needs that may arise. PCP: Dang, patient wants new PCP, list provided Specialists: Friend, AARON Preferred Pharmacy: [facility] Insurance: [employer] Prescription Benefit: yes Living Will/HPOA: none LNOK: Boyfriend, son Living Arrangements: Patient lives with boyfriend in a 2 story home with bed and bath on first floor, 4-5 steps and railing to enter the home. Patient is independent at home. Transportation: self, boyfriend DME/HHC: Patient has cane, crutches, grab bars, cpap at home. No previous HHC or SNF. Disposition Plan: Patient to discharge home with family support and follow-up plans in place. Mariah ALDRIDGE, RN, CM
[2022-12-30] MEDS: Vancomycin 125 MG/5 ML Susp PO.SYRINGE PO ×3 (12:31→23:50)
[2022-12-30 14:59] VITALS: BP 137/63; PULSE 63; RESP 14; TEMP 36.8; O2SAT 99
--- NOTE | 2022-12-30 16:22 | EX.PCM.CON.G ---
HPI Consult Data Date of Consult: 12/30/22 HPI Narrative Reason for Consultation: nausea and vomiting HPI Narrative: ISAAC LOPEZ, is a 62 F who presents with nausea vomiting diarrhea abdominal pain.? She states she is trying to take her meds but cannot keep her meds down for C. difficile colitis.? She states she has been having about 2 to 3 weeks of some cramping intermittent diarrhea that had worsened.? She had stool studies done on the third of this month.? She was called Friday and started the vancomycin.? She was then seen in the ED.? CAT scan showed some ileitis.? They discussed case with GI.? They added Flagyl and prednisone.? She states she is still having the diarrhea.? She has cramps.? Now she is getting nausea and vomiting and just cannot keep her meds down.? She feels weak and tired.? She has never had C. difficile colitis before.? Last admission to the hospital was over a year ago.? Last antibiotics were last December in 2021. She has had C-sections, hysterectomy but never had any bowel surgery for her Crohn's.? She is not currently on any Biologics. Crohn?s diagnosed 2015 with mesalamine 1000mg TID as management. First episode of diverticulitis and did require additional treatment r/t persistent symptoms. Prior to diverticulitis she was having constipation. Gastric emptying study 04.03.22?normal emptying study. CT abd/pel 04.23.22?stable ductal dilation s/p cholecystectomy; mild wall thickening of TI, stable; mild prominence of adjacent mesenteric lymph nodes; mild thickening of cecum; diverticulosis without diverticulitis. Colonoscopy 05.09.22?with advancement to cecum noting surgical changes of hal-TI with erosion; moderate medina-diverticulosis. Vitals in the ED were BP of 167/91, KS of 68, RR of 18 and temp of 97.7F. She was saturating at 99% on room air. CBC showed wbc of 15.6, Hb of 13.8, platelets of 278; chemistry was remarkable for lactic acid of 2.1, but was otherwise unremarkable. Acute abdomen series showed some scattered air fluid levels without dilated bowel loops indicative of ileus. She is being admitted to be managed for acute flare up of Crohn's disease as well as C diff, failed outpatient therapy. [facility] Medical History Clostridioides difficile infection Depression Diverticulitis Esophageal reflux Hypothyroidism Internal hemorrhoids Lumbago PTSD (post-traumatic stress disorder) Sleep apnea Home Medications aspirin 81 mg tablet,delayed release (Ecotrin Low Strength) 81 mg PO DAILY 12/21/13 [History Last Taken 12/20/13 09:00] gabapentin 600 mg tablet (Neurontin) 600 mg PO BID PRN Pain 12/21/13 [History Last Taken 12/27/22] lisinopril 20 mg tablet 20 mg PO DAILY 12/21/13 [History Last Taken 12/28/22] atenolol 25 mg tablet 25 mg PO DAILY 11/24/18 [History Last Taken 12/27/22] levothyroxine 75 mcg capsule 75 mcg PO DAILY 11/11/22 [History Last Taken 12/28/22] spironolactone 25 mg tablet 25 mg PO DAILY 11/11/22 [History Last Taken Unknown] Lactobacillus acidophilus 20 billion cell capsule (Florajen Acidophilus) 10 mg PO DAILY . 12/28/22 [History Last Taken 12/27/22] atorvastatin 40 mg tablet 40 mg PO QHS CHOLESTEROL 12/28/22 [History Last Taken 12/27/22] famotidine 20 mg tablet 20 mg PO DAILY PRN Stomach Upset 12/28/22 [History Last Taken Unknown] fluticasone propionate 50 mcg/actuation nasal spray,suspension 2 spray intranasal DAILY PRN ALLERGIES 12/28/22 [History Last Taken 1 Week Ago ~12/21/22] loratadine 10 mg tablet 10 mg PO DAILY ALLERGIES 12/28/22 [History Last Taken 12/27/22] metronidazole 500 mg tablet 500 mg PO Q8H #21 tabs 12/28/22 [Rx Last Taken Unknown] multivitamin with folic acid 400 mcg tablet ([facility] Multivitamin) 1 tab PO DAILY SUPPLEMENT 12/28/22 [History Last Taken 12/27/22] oxycodone-acetaminophen 5 mg-325 mg tablet 1 tab PO Q6H PRN PRN Pain 3 days #12 TABLETS 12/28/22 [Rx Last Taken Unknown] potassium chloride 20 mEq tablet,extended release(part/cryst) (Klor-Con M) 40 meq PO BID POTASSIUM 12/28/22 [History Last Taken 12/27/22] prednisone 20 mg tablet 60 mg PO DAILY #14 TABLETS 12/28/22 [Rx Last Taken Unknown] vancomycin 125 mg capsule 125 mg PO DIRECTED . 12/28/22 [History Last Taken 12/28/22] Allergy/AdvReac Type Severity Reaction Status Date / Time Penicillins [PCN] Allergy Unknown Verified 12/28/22 08:08 Tetracyclines AdvReac Nausea Verified 12/28/22 08:08 Social History (Updated 12/30/22 @ 08:57 by Selina Castellon) Smoking Status: Former smoker substance use type: marijuana ROS Review of Systems ROS Unobtainable: other Constitutional Constitutional: Denies fatigue, fever(s), poor appetite, weight gain or weight loss ENT HEENT: Denies mouth lesions Cardiovascular Cardiovascular: Denies abdominal bloating, abdominal edema or abdominal pain Respiratory/Chest Respiratory/Chest: Denies change in mental status, change in phlegm color, chest congestion or chest tightness Gastrointestinal Gastrointestinal: Denies belching, bloating, change in bowel habits, change in stool character, chewing difficulty, coffee ground emesis, constipation, cramping, diarrhea, dyspepsia, dysphagia, early satiety, excessive flatus, fecal incontinence, heartburn, hematemesis, hematochezia, hemorrhoids, loose stools, melena, nausea, odynophagia, rectal bleeding, tenesmus, vomiting or weight changes Genitourinary Genitourinary: Denies abdominal discomfort, burning urination or itching Musculoskeletal Musculoskeletal: Reports as per HPI; Denies muscle weakness or myalgias Integumentary Integumentary: Denies jaundice Neurologic Neurologic: Denies lack of coordination or weakness Psychiatric Psychiatric: Denies confusion, depression, memory loss, mood swings, paranoia or suicidal ideation Endocrine Endocrinology: Denies systems reviewed and no addt'l complaints, except as documented Hematologic/Lymphatic Hematologic/Lymphatic: Denies anemia, easy bleeding, easy bruising or lymphadenopathy Allergic/Immunologic Allergic/Immunologic: Denies systems reviewed and no addt'l complaints, except as documented Physical Exam Const alert General Appearance: cooperative Orientation / Consciousness: oriented to person HEENT hearing grossly normal bilaterally Head and Scalp: normal to inspection Face and Sinus: face symmetric Nose: external nose normal Mouth: oral and palatal mucosa normal Eyes conjunctivae normal General Eye: normal appearance of both eyes Neck full ROM General: normal visual inspection Lymph Lymphatic: no lymphadenopathy noted Chest inspection of chest normal and palpation of chest normal Chest: symmetrical chest wall rise Resp normal respiratory effort Effort and Inspection: able to speak in complete sentences Cardio regular rate GI non-distended Percussion: normal to percussion Rectal Exam: deferred Neuro Speech: speech normal Gait (Neuro): normal gait Lab / Micro Data Result Diagrams: 12/30/22 05:50 12/30/22 05:50 Labs: Laboratory Results - last 24 hr 12/30/22 05:50: WBC 15.6 H, RBC 4.33, Hgb 13.8, Hct 39.6, MCV 91.5, MCH 31.9, MCHC 34.8, RDW Std Deviation 39.7, RDW Coeff of Jessica 11.7, Plt Count 278, MPV 9.6, Immature Gran % (Auto) 0.600, Neut % (Auto) 83.1 H, Lymph % (Auto) 10.9 L, [place] % (Auto) 5.3, Eos % (Auto) 0.0, Baso % (Auto) 0.1, Absolute Neuts (auto) 12.9 H, Absolute Lymphs (auto) 1.70, Nucleated RBC % 0 12/30/22 05:50: Sodium 140, Potassium 3.8, Chloride 106, Carbon Dioxide 28.0, Anion Gap 6, BUN 18, Creatinine 0.76, Estim Creat Clear Calc 54.42, Est GFR (MDRD) Af Amer 99, Est GFR (MDRD) Non-Af 82, BUN/Creatinine Ratio 23.7 H, Glucose 147 H, Calcium 9.1, Total Bilirubin 0.30, AST 14 L, ALT 24, Alkaline Phosphatase 74, Total Protein 7.5, Albumin 3.7, Globulin 3.8, Albumin/Globulin Ratio 1.0 12/30/22 05:50: Lactic Acid 2.1 H* 12/30/22 10:31: Lactic Acid 1.0 Radiology Impression Acute Abdomen Series 12/30/22 05:29 IMPRESSION: Some scattered air-fluid levels on the upright projection without dilated bowel loops. This may indicate an ileus. Electronically Signed: Nelson Archibald MD at 6:25 EST , Assessment & Plan Assessment/Plan (1) Crohns disease: PLAN: Patient is. Previous diagnosis of Crohn's disease. Her previous study had shown she had inflammation around the terminal ileum. Her current studies show that she has a ileitis. Stool studies are positive for C. difficile PCR RNA quant and positive for fecal lactoferrin. She is attempted to be started on steroids as an outpatient which she has had nausea vomiting from unknown cause. I am not sure if this is a Crohns disease flare. I will start her on Solu-Medrol. If she is able to keep down the vancomycin. (2) C. difficile colitis: PLAN: Vancomycin 125 mg p.o. every 6 (3) Abdominal pain: PLAN: Abdominal pain likely secondary to gastroenteritis. Charges/Coding Visit Charges Inpatient E&M: 76020 Init Hosp L3
[2022-12-30] MEDS: Potassium Chloride Oral Tablet 20 MEQ 40 MEQ PO (17:05)
[2022-12-30 22:44] VITALS: BP 111/63; PULSE 56; RESP 16; TEMP 36.8; O2SAT 97
[2022-12-31] MEDS: oxyCODONE 5 MG Tablet PO ×4 (00:31→22:02)
[2022-12-31 04:39] VITALS: BP 138/60; PULSE 55; RESP 16; TEMP 36.9; O2SAT 97
[2022-12-31] MEDS: 0.9% Normal Saline 1,000 ML 125 ML IV ×3 (04:43→21:05)
[2022-12-31 05:05] LABS: Absolute Lymphocyte Count 2.56 X10^3/uL (0.83-4.51); Absolute Neutrophil Count 8.6 X10^3/uL (2.0-7.7); Basophil# 0.02 X10^3/uL; Basophil% 0.2 % (0-1); Hemoglobin 12.3 g/dL (12.0-15.0); Lymphocyte # 2.56 X10^3/ul (0.83-4.51); Lymphocyte % 21.8 % (19-41); Mean Corp Hgb Conc 34.2 g/dL (32-36); Mean Corpuscular Hgb 31.8 pg (27.0-32.0); Mean Platelet Vol. 9.6 fl (6.2-12.0); Monocyte# 0.51 X10^3/uL; Monocyte% 4.4 % (0-10); NRBC Flagged by Analyzer 0 % (0-5); Neutrophil # 8.59 X10^3/uL (2.7-7.7); Neutrophil % 73.3 % (47-70); Platelet Count 248 K/mm3 (150-450); RBC Distribution Width CV 11.9 % (11.6-14.6); RBC Distribution Width SD 40.7 fl (35.1-43.9); Red Blood Count 3.87 M/mm3 (4.2-5.4); White Blood Count 11.7 K/mm3 (4.4-11.0)
[2022-12-31 05:30] LABS: Anion Gap 7 (5-15); BUN 12 mg/dL (7-18); BUN/Creat Ratio 23.3 RATIO (10-20); Chloride 110 mmol/L (98-107); Creatinine, Serum 0.51 mg/dL (0.55-1.02); EST Glomerular Filtration Rate 128 mL/min (>60); Est Glom Filt Rate - Afr Amer 155 mL/min (>60); Glucose 96 mg/dL (74-106); Potassium 3.8 mmol/L (3.5-5.1); Sodium Level 142 mmol/L (136-145)
[2022-12-31] MEDS: Levothyroxine 75 MCG Tablet PO (06:09)
[2022-12-31] MEDS: Vancomycin 125 MG/5 ML Susp PO.SYRINGE PO ×4 (06:09→23:51)
[2022-12-31] MEDS: Potassium Chloride Oral Tablet 20 MEQ 40 MEQ PO ×2 (09:20→17:39)
[2022-12-31] MEDS: Lisinopril 20 MG Tablet PO (09:20)
[2022-12-31] MEDS: Aspirin E.C. 81 MG Tablet PO (09:20)
[2022-12-31] MEDS: Atenolol 25 MG Tablet PO (09:20)
[2022-12-31 09:25] VITALS: BP 159/90; PULSE 60; RESP 14; TEMP 36.6; O2SAT 97
--- NOTE | 2022-12-31 12:02 | PN_ITS ---
Subjective Subjective Patient seen and examined. She is still having some abdominal pain. She had a small bowel movement this morning and she says it was starting to be formed. She denies any nausea or vomiting. Review of systems otherwise negative. Her was by her bedside. She has remained hemodynamically stable. Objective Data Objective Data Vital Signs: Vital Signs Temp Pulse Resp BP Pulse Ox O2 Del Method 97.8 F 60 14 159/90 H 97 Room Air 12/31/22 09:25 12/31/22 09:25 12/31/22 09:25 12/31/22 09:25 12/31/22 09:25 12/31/22 09:25 Oxygen Delivery Method Room Air Weight: 173 lb 4.533 oz Body Mass Index (BMI) 33.8 Intake & Output: Intake and Output for Last 24 Hours 12/29/22 12/30/22 12/31/22 23:59 23:59 23:59 Intake Total 2433.33 / 2673.33 2179.58 / 2179.58 Balance 2433.33 / 2673.33 2179.58 / 2179.58 Lab / Micro Data Result Diagrams: 12/31/22 04:37 12/31/22 04:37 Labs: Laboratory Results - last 24 hr 12/31/22 04:37: WBC 11.7 H, RBC 3.87 L, Hgb 12.3, Hct 36.0 L, MCV 93.0, MCH 31.8, MCHC 34.2, RDW Std Deviation 40.7, RDW Coeff of Jessica 11.9, Plt Count 248, MPV 9.6, Immature Gran % (Auto) 0.300, Neut % (Auto) 73.3 H, Lymph % (Auto) 21.8, [place] % (Auto) 4.4, Eos % (Auto) 0.0, Baso % (Auto) 0.2, Absolute Neuts (au to) 8.6 H, Absolute Lymphs (auto) 2.56, Nucleated RBC % 0 12/31/22 04:37: Sodium 142, Potassium 3.8, Chloride 110 H, Carbon Dioxide 25.0, Anion Gap 7, BUN 12, Creatinine 0.51 L, Estim Creat Clear Calc 81.10, Est GFR (MDRD) Af Amer 155, Est GFR (MDRD) Non-Af 128, BUN/Creatinine Ratio 23.3 H, Glucose 96, Calcium 8.0 L Physical Exam Const alert, oriented x3 and no apparent distress HEENT normocephalic, head/scalp atraumatic and moist oral mucous membranes Eyes PERRL, EOMs intact bilaterally and conjunctivae normal Neck no lymphadenopathy, supple and no JVD Resp normal respiratory effort, normal air movement, no retractions, no use of accessory muscles and clear to auscultation bilaterally Cardio regular rate, regular rhythm, S1 normal heart sound, S2 normal heart sound and no murmurs GI normal to inspection, nondistended, normoactive bowel sounds GI Narrative: mild generalised tenderness, no guarding or rebound tenderness Extremity normal to inspection and no clubbing, cyanosis or edema Neuro oriented x3, CN's II-XII intact bilaterally, moves all extremities and no focal motor deficits Sensorium / Orientation: awake and alert Motor Exam: strength 5/5 throughout Psych affect normal Assessment & Plan Assessment/Plan (1) Crohns disease: (2) C. difficile colitis: (3) Nausea vomiting and diarrhea: PLAN: Plan #Acute flare up of Crohn's disease * Admitted to [facility] * Patient was diagnosed with Crohn's flareup on outpatient basis and started on p.o. prednisone. She was also recently diagnosed with C. difficile and started on oral vancomycin by his symptoms persisted. She therefore failed outpatient therapy. * Was started on IV Solu-Medrol. * Keep NPO. Hydrate gently with IV fluids. Consult gastroenterology. * #C. difficile colitis: WBC is elevated at 15 but kidney function is normal. On oral vancomycin. We will continue. #Hypertension: On atenolol as well as lisinopril and spironolactone #Hyperlipidemia: On famotidine #Hypothyroidism: On Synthroid DVT prophylaxis: Lovenox CODE STATUS: Full code * Patient counseled extensively about different types of CODE STATUS including full code, DNR CCA and DNR CCA. Patient elects to be full code. * Total [id number] time 16 minutes. * Total time spent on seeing patient, reviewing chart and labs, discussing plan with patient, reviewing specialist notes, discussion of plan with nursing and ancillary staff and documentation in the EMR: 77 mins
[2022-12-31 15:40] VITALS: BP 151/82; PULSE 55; RESP 14; TEMP 36.3; O2SAT 97
--- NOTE | 2022-12-31 16:06 | PN_ITS ---
Subjective Subjective Patient is still have some abdominal pain and is not eating much. She has mid abdominal cramping with some bloating and a lot of gas. She had 3 bowel movements today with some mild cramping and no blood. Objective Data Objective Data Vital Signs: Vital Signs Temp Pulse Resp BP Pulse Ox O2 Del Method 97.3 F L 55 L 14 151/82 H 97 Room Air 12/31/22 15:40 12/31/22 15:40 12/31/22 15:40 12/31/22 15:40 12/31/22 15:40 12/31/22 15:46 Oxygen Delivery Method Room Air Weight: 173 lb 4.533 oz Body Mass Index (BMI) 33.8 Intake & Output: Intake and Output for Last 24 Hours 12/29/22 12/30/22 12/31/22 23:59 23:59 23:59 Intake Total 2433.33 / 2673.33 3179.58 / 3179.58 Balance 2433.33 / 2673.33 3179.58 / 3179.58 Lab / Micro Data Result Diagrams: 12/31/22 04:37 12/31/22 04:37 Labs: Laboratory Results - last 24 hr 12/31/22 04:37: WBC 11.7 H, RBC 3.87 L, Hgb 12.3, Hct 36.0 L, MCV 93.0, MCH 31.8, MCHC 34.2, RDW Std Deviation 40.7, RDW Coeff of Jessica 11.9, Plt Count 248, MPV 9.6, Immature Gran % (Auto) 0.300, Neut % (Auto) 73.3 H, Lymph % (Auto) 21.8, [place] % (Auto) 4.4, Eos % (Auto) 0.0, Baso % (Auto) 0.2, Absolute Neuts (a uto) 8.6 H, Absolute Lymphs (auto) 2.56, Nucleated RBC % 0 12/31/22 04:37: Sodium 142, Potassium 3.8, Chloride 110 H, Carbon Dioxide 25.0, Anion Gap 7, BUN 12, Creatinine 0.51 L, Estim Creat Clear Calc 81.10, Est GFR (MDRD) Af Amer 155, Est GFR (MDRD) Non-Af 128, BUN/Creatinine Ratio 23.3 H, Gluc ose 96, Calcium 8.0 L Physical Exam Const alert, oriented x3 and no apparent distress HEENT normocephalic, head/scalp atraumatic and moist oral mucous membranes Eyes PERRL, EOMs intact bilaterally and conjunctivae normal Neck no lymphadenopathy, supple and no JVD Resp normal respiratory effort, normal air movement, no retractions, no use of accessory muscles and clear to auscultation bilaterally Cardio regular rate, regular rhythm, S1 normal heart sound, S2 normal heart sound and no murmurs GI normal to inspection, nondistended, normoactive bowel sounds GI Narrative: mild generalised tenderness, no guarding or rebound tenderness Extremity normal to inspection and no clubbing, cyanosis or edema Neuro oriented x3, CN's II-XII intact bilaterally, moves all extremities and no focal motor deficits Sensorium / Orientation: awake and alert Motor Exam: strength 5/5 throughout Psych affect normal Assessment & Plan Assessment/Plan (1) Crohns disease: PLAN: Patient is. Previous diagnosis of Crohn's disease. Her previous study had shown she had inflammation around the terminal ileum. Her current studies show that she has a ileitis. Stool studies are positive for C. difficile PCR RNA quant and positive for fecal lactoferrin. She is tolerating steroid therapy. Recommend to continue current dosing and hopefully we can transition to equivalent dose as an outpatient. (2) C. difficile colitis: PLAN: Vancomycin 125 mg p.o. every 6 hours. She does seem to have some bloating and some abdominal dull discomfort. I will add Reglan 2.5 mg IV every 6 hours [id number] (3) Abdominal pain: PLAN: Abdominal pain likely secondary to mild Ileitis secondary to Crohn's disease and acute C. difficile colitis. Continue medical therapy. Charges/Coding Visit Charges Inpatient E&M: 69095 Subs Hosp L3
[2022-12-31] MEDS: Metoclopramide 10 MG/2 ML Vial 2.5 MG IV ×2 (17:39→23:51)
[2022-12-31 21:43] VITALS: BP 172/71; PULSE 60; RESP 16; TEMP 36.9; O2SAT 98
[2022-12-31 22:00] VITALS: RESP 16
[2022-12-31] MEDS: Gabapentin 600 MG Tablet PO (22:02)
[2023-01-01 03:40] VITALS: BP 140/75; PULSE 59; RESP 16; TEMP 36.9; O2SAT 99
[2023-01-01] MEDS: oxyCODONE 5 MG Tablet PO ×3 (05:53→18:17)
[2023-01-01] MEDS: Metoclopramide 10 MG/2 ML Vial 2.5 MG IV ×3 (05:54→18:18)
[2023-01-01] MEDS: Levothyroxine 75 MCG Tablet PO (05:54)
[2023-01-01] MEDS: Vancomycin 125 MG/5 ML Susp PO.SYRINGE PO ×3 (06:01→18:18)
[2023-01-01] MEDS: 0.9% Normal Saline 1,000 ML 125 ML IV ×3 (06:02→18:19)
[2023-01-01] MEDS: Lisinopril 20 MG Tablet PO (08:23)
[2023-01-01] MEDS: Aspirin E.C. 81 MG Tablet PO (08:23)
[2023-01-01] MEDS: Potassium Chloride Oral Tablet 20 MEQ 40 MEQ PO ×2 (08:23→18:19)
[2023-01-01] MEDS: Atenolol 25 MG Tablet PO (08:23)
[2023-01-01] MEDS: 0.9% Saline Lock 10 ML Syringe IV (08:24)
[2023-01-01 09:03] LABS: Absolute Lymphocyte Count 5.41 X10^3/uL (0.83-4.51); Absolute Neutrophil Count 9.2 X10^3/uL (2.0-7.7); Basophil# 0.07 X10^3/uL; Basophil% 0.4 % (0-1); Eosinophil# 0.06 X10^3/uL; Eosinophils% 0.4 % (0-5); Hematocrit 41.3 % (37-47); Hemoglobin 13.8 g/dL (12.0-15.0); Lymphocyte # 5.41 X10^3/ul (0.83-4.51); Mean Corp Hgb Conc 33.4 g/dL (32-36); Mean Corpuscular Hgb 30.8 pg (27.0-32.0); Mean Corpuscular Volume 92.2 fL (81-99); Mean Platelet Vol. 9.7 fl (6.2-12.0); Monocyte# 1.11 X10^3/uL; NRBC Flagged by Analyzer 0 % (0-5); Neutrophil # 9.18 X10^3/uL (2.7-7.7); Neutrophil % 57.6 % (47-70); POSITIVE DIFFERENTIAL YES; POSITIVE MORPHOLOGY YES; Platelet Count 278 K/mm3 (150-450); RBC Distribution Width CV 11.9 % (11.6-14.6); RBC Distribution Width SD 39.8 fl (35.1-43.9); Red Blood Count 4.48 M/mm3 (4.2-5.4); White Blood Count 15.9 K/mm3 (4.4-11.0)
[2023-01-01 09:10] VITALS: BP 160/78; PULSE 89; RESP 14; TEMP 36.6; O2SAT 98
[2023-01-01 09:12] LABS: Differential Indicated SCAN CRITERIA MET
[2023-01-01 09:21] LABS: AST(SGOT) 43 U/L (15-37); Alanine Aminotransfer ALT/SGPT 93 U/L (13-56); Albumin, Serum 3.8 g/dL (3.2-5.0); Alkaline Phosphatase 73 U/L (45-117); Anion Gap 6 (5-15); BUN 10 mg/dL (7-18); BUN/Creat Ratio 12.7 RATIO (10-20); Calcium,Total 8.6 mg/dL (8.5-10.1); Chloride 108 mmol/L (98-107); Creatinine, Serum 0.79 mg/dL (0.55-1.02); EST Glomerular Filtration Rate 78 mL/min (>60); Est Glom Filt Rate - Afr Amer 95 mL/min (>60); Estimated Creatinine Clearance 52.36 ml/min; Globulin 3.9 g/dL (2.2-4.2); Glucose 120 mg/dL (74-106); Potassium 3.7 mmol/L (3.5-5.1); Protein, Total 7.7 g/dL (6.4-8.2); Sodium Level 140 mmol/L (136-145)
[2023-01-01 10:24] LABS: Differential Comment SCANNED
--- NOTE | 2023-01-01 12:01 | PN_ITS ---
Subjective Subjective Patient seen and examined. She states abdominal pain is improving. Her stool is also getting a bit more formed. She denies any nausea or vomiting review of systems otherwise negative. Blood pressure is a bit elevated this morning at 160/78. She has remained hemodynamically stable. Objective Data Objective Data Vital Signs: Vital Signs Temp Pulse Resp BP Pulse Ox O2 Del Method 97.9 F 89 14 160/78 H 98 Room Air 01/01/23 09:10 01/01/23 09:10 01/01/23 09:10 01/01/23 09:10 01/01/23 09:10 01/01/23 09:10 Oxygen Delivery Method Room Air Weight: 173 lb 4.533 oz Body Mass Index (BMI) 33.8 Intake & Output: Intake and Output for Last 24 Hours 12/30/22 12/31/22 01/01/23 23:59 23:59 23:59 Intake Total 2433.33 / 2673.33 4979.58 / 4979.58 1883.33 / 1883.33 Balance 2433.33 / 2673.33 4979.58 / 4979.58 1883.33 / 1883.33 Lab / Micro Data Result Diagrams: 01/01/23 08:40 01/01/23 08:40 Labs: Laboratory Results - last 24 hr 01/01/23 08:40: WBC 15.9 H, RBC 4.48, Hgb 13.8, Hct 41.3, MCV 92.2, MCH 30.8, MCHC 33.4, RDW Std Deviation 39.8, RDW Coeff of Jessica 11.9, Plt Count 278, MPV 9.7, Immature Gran % (Auto) 0.600, Neut % (Auto) 57.6, Lymph % (Auto) 34.0, [place] % (Auto) 7.0, Eos % (Auto) 0.4, Baso % (Auto) 0.4, Absolute Neuts (auto) 9.2 H, Absolute Lymphs (auto) 5.41 H, Nucleated RBC % 0, Differential Comment SCANNED 01/01/23 08:40: Sodium 140, Potassium 3.7, Chloride 108 H, Carbon Dioxide 26.0, Anion Gap 6, BUN 10, Creatinine 0.79, Estim Creat Clear Calc 52.36, Est GFR (MDRD) Af Amer 95, Est GFR (MDRD) Non-Af 78, BUN/Creatinine Ratio 12.7, Glucose 120 H, Calcium 8.6, Total Bilirubin 0.60, AST 43 H, ALT 93 H, Alkaline Phosphatase 73, Total Protein 7.7, Albumin 3.8, Globulin 3.9, Albumin/Globulin Ratio 1.0 Physical Exam Const alert, oriented x3 and no apparent distress HEENT normocephalic, head/scalp atraumatic and moist oral mucous membranes Eyes PERRL, EOMs intact bilaterally and conjunctivae normal Neck no lymphadenopathy, supple and no JVD Resp normal respiratory effort, normal air movement, no retractions, no use of accessory muscles and clear to auscultation bilaterally Cardio regular rate, regular rhythm, S1 normal heart sound, S2 normal heart sound and no murmurs GI normal to inspection, nondistended, normoactive bowel sounds Extremity normal to inspection, normal capillary refill and no clubbing, cyanosis or edema Neuro oriented x3, CN's II-XII intact bilaterally, moves all extremities and no focal motor deficits Sensorium / Orientation: awake and alert Motor Exam: strength 5/5 throughout Psych affect normal Assessment & Plan Assessment/Plan (1) Crohns disease: (2) C. difficile colitis: (3) Nausea vomiting and diarrhea: PLAN: Plan #Acute flare up of Crohn's disease * abdominal pain is improving * on IV solumedrol * GI on board * says she wants to start a diet today, as she feels the abdominal pain has improved * start on clear liquid diet today * also on oral vancomycin * #C. difficile colitis: on oral vancomycin. WBC is elevated at 15.9, but that is likely due to the steroids. #Hypertension: On atenolol as well as lisinopril and spironolactone #Hyperlipidemia: On famotidine #Hypothyroidism: On Synthroid DVT prophylaxis: Lovenox CODE STATUS: Full code * Charges/Coding Visit Charges Inpatient E&M: 59811 Subs Hosp L2
--- NOTE | 2023-01-01 13:54 | PN_ITS ---
Subjective Subjective Her abdominal pain is better. She denied any nausea, vomiting. She has had 2 bowel movements this morning without fecal incontinence or urgency. Objective Data Objective Data Vital Signs: Vital Signs Temp Pulse Resp BP Pulse Ox O2 Del Method 97.9 F 89 14 160/78 H 98 Room Air 01/01/23 09:10 01/01/23 09:10 01/01/23 09:10 01/01/23 09:10 01/01/23 09:10 01/01/23 09:10 Oxygen Delivery Method Room Air Weight: 173 lb 4.533 oz Body Mass Index (BMI) 33.8 Intake & Output: Intake and Output for Last 24 Hours 12/30/22 12/31/22 01/01/23 23:59 23:59 23:59 Intake Total 2433.33 / 2673.33 4979.58 / 4979.58 1883.33 / 1883.33 Balance 2433.33 / 2673.33 4979.58 / 4979.58 1883.33 / 1883.33 Lab / Micro Data Result Diagrams: 01/01/23 08:40 01/01/23 08:40 Labs: Laboratory Results - last 24 hr 01/01/23 08:40: WBC 15.9 H, RBC 4.48, Hgb 13.8, Hct 41.3, MCV 92.2, MCH 30.8, MCHC 33.4, RDW Std Deviation 39.8, RDW Coeff of Jessica 11.9, Plt Count 278, MPV 9.7, Immature Gran % (Auto) 0.600, Neut % (Auto) 57.6, Lymph % (Auto) 34.0, [place] % (Auto) 7.0, Eos % (Auto) 0.4, Baso % (Auto) 0.4, Absolute Neuts (auto) 9.2 H, Absolute Lymphs (auto) 5.41 H, Nucleated RBC % 0, Differential Comment SCANNED 01/01/23 08:40: Sodium 140, Potassium 3.7, Chloride 108 H, Carbon Dioxide 26.0, Anion Gap 6, BUN 10, Creatinine 0.79, Estim Creat Clear Calc 52.36, Est GFR (MDRD) Af Amer 95, Est GFR (MDRD) Non-Af 78, BUN/Creatinine Ratio 12.7, Glucose 120 H, Calcium 8.6, Total Bilirubin 0.60, AST 43 H, ALT 93 H, Alkaline Phosphatase 73, Total Protein 7.7, Albumin 3.8, Globulin 3.9, Albumin/Globulin Ratio 1.0 Physical Exam Const alert, oriented x3 and no apparent distress HEENT normocephalic, head/scalp atraumatic and moist oral mucous membranes Eyes PERRL, EOMs intact bilaterally and conjunctivae normal Neck no lymphadenopathy, supple and no JVD Resp normal respiratory effort, normal air movement, no retractions, no use of accessory muscles and clear to auscultation bilaterally Cardio regular rate, regular rhythm, S1 normal heart sound, S2 normal heart sound and no murmurs GI normal to inspection, nondistended, normoactive bowel sounds Extremity normal to inspection, normal capillary refill and no clubbing, cyanosis or edema Neuro oriented x3, CN's II-XII intact bilaterally, moves all extremities and no focal motor deficits Sensorium / Orientation: awake and alert Motor Exam: strength 5/5 throughout Psych affect normal Assessment & Plan Assessment/Plan (1) Crohns disease: PLAN: Patient is. Previous diagnosis of Crohn's disease. Her previous study had shown she had inflammation around the terminal ileum. Her current studies show that she has a ileitis. Stool studies are positive for C. difficile PCR RNA quant and positive for fecal lactoferrin. She is tolerating steroid therapy. Recommend to continue current dosing and hopefully we can transition to equivalent dose as an outpatient. 01/01/2023-it is okay to advance her diet. I would like to start on Azathiopurine, but she is currently being treated for C.diff. (2) C. difficile colitis: PLAN: Vancomycin 125 mg p.o. every 6 hours. She does seem to have some bloating and some abdominal dull discomfort. I will add Reglan 2.5 mg IV every 6 hours [id number]. 01/01/2023-patient is not having any side effects to Reglan. Recommend to continue. (3) Abdominal pain: PLAN: Abdominal pain likely secondary to mild Ileitis secondary to Crohn's disease and acute C. difficile colitis. Continue medical therapy. Charges/Coding Visit Charges Inpatient E&M: 21405 Subs Hosp L3
[2023-01-01 15:36] VITALS: BP 146/57; PULSE 60; RESP 16; TEMP 36.6; O2SAT 98
[2023-01-01] MEDS: Gabapentin 600 MG Tablet PO (15:36)
[2023-01-01 21:44] VITALS: BP 142/77; PULSE 48; RESP 16; TEMP 36.5; O2SAT 96
[2023-01-02] MEDS: Metoclopramide 10 MG/2 ML Vial 2.5 MG IV ×5 (00:15→23:07)
[2023-01-02] MEDS: Vancomycin 125 MG/5 ML Susp PO.SYRINGE PO ×5 (00:17→23:08)
[2023-01-02] MEDS: oxyCODONE 5 MG Tablet PO ×4 (00:18→18:45)
[2023-01-02] MEDS: 0.9% Normal Saline 1,000 ML 125 ML IV ×3 (02:29→23:08)
[2023-01-02 04:15] VITALS: BP 128/58; PULSE 52; RESP 16; TEMP 36.9; O2SAT 96
[2023-01-02] MEDS: Levothyroxine 75 MCG Tablet PO (06:28)
--- NOTE | 2023-01-02 07:19 | MRI_ITS ---
Examination: MRI of the abdomen without and with contrast. INDICATION: Hepatic lesion: TECHNIQUE: multisequence multiplanar MRI of the abdomen was obtained without and with contrast. COMPARISON: CT dated December 28, 2022 FINDINGS: The visualized lung bases are clear. There are no discrete liver lesions visualized. There is stable intra and extrahepatic ductal dilatation. There are surgical clips within the gallbladder fossa consistent with prior cholecystectomy. The spleen and pancreas are within normal limits. The adrenal glands and kidneys are within normal limits. There are no pathologically enlarged lymph nodes visualized. The stomach is within normal limits. The visualized small bowel is normal limits. There there are diverticula arising from the colon. Are postsurgical changes within the anterior abdominal wall. There are degenerative changes of the visualized thoracic and lumbar spine. MRI/MRI Abd WITH and W/O Contrast IMPRESSION: No discrete hepatic lesion identified. Intra and extrahepatic ductal dilatation. Colonic diverticulosis. Electronically Signed: Kika Stanton MD at 10:20 EST ,
[2023-01-02 10:18] VITALS: BP 177/83; PULSE 64; RESP 15; TEMP 36.8; O2SAT 97
[2023-01-02] MEDS: Lisinopril 20 MG Tablet PO (10:23)
[2023-01-02] MEDS: Atenolol 25 MG Tablet PO (10:23)
[2023-01-02] MEDS: Potassium Chloride Oral Tablet 20 MEQ 40 MEQ PO ×2 (10:23→18:44)
[2023-01-02] MEDS: Aspirin E.C. 81 MG Tablet PO (10:23)
[2023-01-02] MEDS: 0.9% Saline Lock 10 ML Syringe IV ×2 (10:26→23:06)
--- NOTE | 2023-01-02 10:45 | PN_ITS ---
Subjective Subjective Patient seen and examined. She said her belly pain was aggravated by going on full liquid diet yesterday. She therefore went back on the clear liquid diet. She has no other complaints and review of systems otherwise negative. She is going for abdominal MRI today as ordered by gastroenterology. Objective Data Objective Data Vital Signs: Vital Signs Temp Pulse Resp BP Pulse Ox O2 Del Method 98.2 F 64 15 177/83 H 97 Room Air 01/02/23 10:18 01/02/23 10:18 01/02/23 10:18 01/02/23 10:18 01/02/23 10:18 01/02/23 10:18 Oxygen Delivery Method Room Air Weight: 173 lb 4.533 oz Body Mass Index (BMI) 33.8 Intake & Output: Intake and Output for Last 24 Hours 12/31/22 01/01/23 01/02/23 23:59 23:59 23:59 Intake Total 4979.58 / 4979.58 2735.41 / 3235.41 2800 / 2800 Balance 4979.58 / 4979.58 2735.41 / 3235.41 2800 / 2800 Lab / Micro Data Result Diagrams: 01/01/23 08:40 01/01/23 08:40 Radiography Diagnostic Testing: Radiology Impression Abdomen MRI 01/02/23 07:19 IMPRESSION: No discrete hepatic lesion identified. Intra and extrahepatic ductal dilatation. Colonic diverticulosis. Electronically Signed: Kika Stanton MD at 10:20 EST , Physical Exam Const alert, oriented x3 and no apparent distress General Appearance: cooperative and well developed HEENT normocephalic, head/scalp atraumatic and moist oral mucous membranes Eyes PERRL, EOMs intact bilaterally and conjunctivae normal Neck no lymphadenopathy, supple and no JVD Lymph Lymphatic: no lymphadenopathy noted Resp normal respiratory effort, normal air movement, no retractions, no use of accessory muscles and clear to auscultation bilaterally Cardio regular rate, regular rhythm, S1 normal heart sound, S2 normal heart sound and no murmurs GI normal to inspection, nondistended, normoactive bowel sounds GI Narrative: abdominal tenderness has resolved, no organomegaly. Extremity normal to inspection, normal capillary refill and no clubbing, cyanosis or edema Skin General Skin Exam: no breakdown Neuro oriented x3, CN's II-XII intact bilaterally, moves all extremities and no focal motor deficits Sensorium / Orientation: awake and alert Motor Exam: strength 5/5 throughout Psych affect normal Assessment & Plan Assessment/Plan (1) Crohns disease: (2) C. difficile colitis: (3) Nausea vomiting and diarrhea: PLAN: Plan #Acute flare up of Crohn's disease * abdominal pain had been improving, but says it was aggravated yesterday by consuming the full liquid diet. * on IV solumedrol * GI on board * also on oral vancomycin for C Diff. * per GI, to be started on azathioprine once C Diff resolvs. #C. difficile colitis: * on oral vancomycin. to complete a 10 day course.WBC is elevated at 15.9, but that is likely due to the steroids. #Hypertension: On atenolol as well as lisinopril and spironolactone #Hyperlipidemia: On famotidine #Hypothyroidism: On Synthroid DVT prophylaxis: Lovenox CODE STATUS: Full code * Charges/Coding Visit Charges Inpatient E&M: 20156 Subs Hosp L2
[2023-01-02 11:06] LABS: Basophil# 0.03 X10^3/uL; Basophil% 0.2 % (0-1); Eosinophil# 0.05 X10^3/uL; Eosinophils% 0.4 % (0-5); Hematocrit 42.3 % (37-47); Hemoglobin 14.6 g/dL (12.0-15.0); Lymphocyte % 35.4 % (19-41); Mean Corp Hgb Conc 34.5 g/dL (32-36); Mean Corpuscular Hgb 31.1 pg (27.0-32.0); Mean Platelet Vol. 10.2 fl (6.2-12.0); Monocyte# 0.95 X10^3/uL; Monocyte% 6.7 % (0-10); NRBC Flagged by Analyzer 0 % (0-5); Neutrophil # 8.04 X10^3/uL (2.7-7.7); Neutrophil % 56.8 % (47-70); Platelet Count 288 K/mm3 (150-450); RBC Distribution Width CV 11.9 % (11.6-14.6); RBC Distribution Width SD 39.1 fl (35.1-43.9); White Blood Count 14.1 K/mm3 (4.4-11.0)
[2023-01-02 11:15] LABS: Anion Gap 6 (5-15); BUN 9 mg/dL (7-18); BUN/Creat Ratio 13.4 RATIO (10-20); Chloride 106 mmol/L (98-107); Creatinine, Serum 0.67 mg/dL (0.55-1.02); EST Glomerular Filtration Rate 94 mL/min (>60); Est Glom Filt Rate - Afr Amer 114 mL/min (>60); Estimated Creatinine Clearance 61.73 ml/min; Glucose 94 mg/dL (74-106); Potassium 3.8 mmol/L (3.5-5.1); Sodium Level 138 mmol/L (136-145)
[2023-01-02 14:09] LABS: HEPATITIS B SURFACE AG Negative (Negative); Hep C Antibodies Non Reactive (Non Reactive); Hepatitis A IgM Antibody Negative (Negative); Hepatitis B Core AB IgM Negative (Negative); QNTFERON TB Mitogen Value > 10.00 IU/mL (.); QNTFERON TB Nil Value 0.04 IU/mL (.); QNTFERON TB1+ Ag Value 0.07 IU/mL (.); QNTFERON TB2+ Ag Value 0.06 IU/mL (.)
[2023-01-02 16:51] VITALS: BP 181/84; PULSE 65; RESP 16; TEMP 36.6; O2SAT 94
[2023-01-02] MEDS: Gabapentin 600 MG Tablet PO (16:58)
[2023-01-02 17:21] LABS: QNTIFERON TB Positive Criteria Negative (Negative)
--- NOTE | 2023-01-02 18:29 | PN_ITS ---
Subjective Subjective Patient is still having abdominal pain with some mild bloating and cramping. She rates her pain at a 6 out of 10. She says that if she does not eat then her pain is only about a 3 out of 10. She underwent MRI today to look at the previous lesion that was noted to be on a CT scan abdomen pelvis approximately 5 days ago. Objective Data Objective Data Vital Signs: Vital Signs Temp Pulse Resp BP Pulse Ox O2 Del Method 97.8 F 65 16 181/84 H 94 Room Air 01/02/23 16:51 01/02/23 16:51 01/02/23 16:51 01/02/23 16:51 01/02/23 16:51 01/02/23 16:51 Oxygen Delivery Method Room Air Weight: 173 lb 4.533 oz Body Mass Index (BMI) 33.8 Intake & Output: Intake and Output for Last 24 Hours 12/31/22 01/01/23 01/02/23 23:59 23:59 23:59 Intake Total 4979.58 / 4979.58 2735.41 / 3235.41 3580 / 3580 Balance 4979.58 / 4979.58 2735.41 / 3235.41 3580 / 3580 Lab / Micro Data Result Diagrams: 01/02/23 07:35 01/02/23 07:35 Labs: Laboratory Results - last 24 hr 12/31/22 04:37: Hepatitis A IgM Ab Negative, Hep Bs Antigen Negative, Hep B Core IgM Ab Negative, Hepatitis C Ab (EIA) Non Reactive, Hep C Ab Comment Comment, TB Test (QFT) Nil 0.04, TB Test (QFT) Mitogen > 10.00, TB Test (QFT) Ag 1 0.07, TB Test (QFT) Ag 2 0.06, TB Test (QFT) Comment, TB Positive Criteria Negative 01/02/23 07:35: WBC 14.1 H, RBC 4.70, Hgb 14.6, Hct 42.3, MCV 90.0, MCH 31.1, MCHC 34.5, RDW Std Deviation 39.1, RDW Coeff of Jessica 11.9, Plt Count 288, MPV 10.2, Immature Gran % (Auto) 0.500, Neut % (Auto) 56.8, Lymph % (Auto) 35.4, [place] % (Auto) 6.7, Eos % (Auto) 0.4, Baso % (Auto) 0.2, Absolute Neuts (auto) 8.0 H, Absolute Lymphs (auto) 5.00 H, Nucleated RBC % 0 01/02/23 07:35: Sodium 138, Potassium 3.8, Chloride 106, Carbon Dioxide 26.0, Anion Gap 6, BUN 9, Creatinine 0.67, Estim Creat Clear Calc 61.73, Est GFR (MDRD) Af Amer 114, Est GFR (MDRD) Non-Af 94, BUN/Creatinine Ratio 13.4, Glucose 94, Calcium 9.0 Radiography Diagnostic Testing: Radiology Impression Abdomen MRI 01/02/23 07:19 IMPRESSION: No discrete hepatic lesion identified. Intra and extrahepatic ductal dilatation. Colonic diverticulosis. Electronically Signed: Kika Stanton MD at 10:20 EST , Physical Exam Const alert, oriented x3 and no apparent distress General Appearance: cooperative and well developed HEENT normocephalic, head/scalp atraumatic and moist oral mucous membranes Eyes PERRL, EOMs intact bilaterally and conjunctivae normal Neck no lymphadenopathy, supple and no JVD Lymph Lymphatic: no lymphadenopathy noted Resp normal respiratory effort, normal air movement, no retractions, no use of accessory muscles and clear to auscultation bilaterally Cardio regular rate, regular rhythm, S1 normal heart sound, S2 normal heart sound and no murmurs GI normal to inspection, nondistended, normoactive bowel sounds GI Narrative: abdominal tenderness has resolved, no organomegaly. Extremity normal to inspection, normal capillary refill and no clubbing, cyanosis or edema Skin General Skin Exam: no breakdown Neuro oriented x3, CN's II-XII intact bilaterally, moves all extremities and no focal motor deficits Sensorium / Orientation: awake and alert Motor Exam: strength 5/5 throughout Psych affect normal Assessment & Plan Assessment/Plan (1) Crohns disease: PLAN: Patient is. Previous diagnosis of Crohn's disease. Her previous study had shown she had inflammation around the terminal ileum. Her current studies show that she has a ileitis. Stool studies are positive for C. difficile PCR RNA quant and positive for fecal lactoferrin. She is tolerating steroid therapy. Recommend to continue current dosing and hopefully we can transition to equivalent dose as an outpatient. 01/01/2023-it is okay to advance her diet. I would like to start on Azathiopurine, but she is currently being treated for C.diff. 01/02/2023-agree with clear liquid diet. I will not increase any i mmunosuppression at this time. (2) C. difficile colitis: PLAN: Vancomycin 125 mg p.o. every 6 hours. She does seem to have some bloating and some abdominal dull discomfort. I will add Reglan 2.5 mg IV every 6 hours [id number]. 01/01/2023-patient is not having any side effects to Reglan. Recommend to continue. (3) Abdominal pain: PLAN: Abdominal pain likely secondary to mild Ileitis secondary to Crohn's disease and acute C. difficile colitis. Continue medical therapy. She did have mild elevation in her LFTs and her MRI shows stable dilation consistent with previous cholecystectomy without any filling defects in the common bile duct. Increased LFTs possibly secondary to biliary stasis from patient not eating. (4) Liver lesion: PLAN: No lesion was seen on MRI as was seen previously on CT scan abdomen pelvis . Charges/Coding Visit Charges Inpatient E&M: 54552 Subs Hosp L3
[2023-01-02 23:14] VITALS: BP 117/69; PULSE 47; RESP 16; TEMP 36.1; O2SAT 97
[2023-01-03] MEDS: oxyCODONE 5 MG Tablet PO ×4 (03:44→23:15)
[2023-01-03] MEDS: Levothyroxine 75 MCG Tablet PO (05:04)
[2023-01-03] MEDS: 0.9% Saline Lock 10 ML Syringe IV ×3 (05:04→23:15)
[2023-01-03] MEDS: Metoclopramide 10 MG/2 ML Vial 2.5 MG IV ×4 (05:04→23:14)
[2023-01-03] MEDS: Vancomycin 125 MG/5 ML Susp PO.SYRINGE PO ×4 (05:04→23:15)
[2023-01-03 05:08] VITALS: BP 151/73; PULSE 57; RESP 16; TEMP 36.8; O2SAT 98
[2023-01-03] MEDS: 0.9% Normal Saline 1,000 ML 125 ML IV ×3 (06:34→23:15)
[2023-01-03 08:30] LABS: AFP, Tumor Marker 2.5 ng/mL (0.0-9.2); Carcinoembryonic Antigen 2.4 ng/mL (0.0-4.7)
[2023-01-03 08:38] LABS: Absolute Lymphocyte Count 5.31 X10^3/uL (0.83-4.51); Absolute Neutrophil Count 11.7 X10^3/uL (2.0-7.7); Basophil# 0.04 X10^3/uL; Basophil% 0.2 % (0-1); Eosinophil# 0.04 X10^3/uL; Eosinophils% 0.2 % (0-5); Hematocrit 41.2 % (37-47); Hemoglobin 14.4 g/dL (12.0-15.0); Lymphocyte # 5.31 X10^3/ul (0.83-4.51); Mean Corpuscular Hgb 31.7 pg (27.0-32.0); Mean Corpuscular Volume 90.7 fL (81-99); Mean Platelet Vol. 9.8 fl (6.2-12.0); Monocyte# 1.16 X10^3/uL; Monocyte% 6.3 % (0-10); NRBC Flagged by Analyzer 0 % (0-5); Neutrophil # 11.66 X10^3/uL (2.7-7.7); Neutrophil % 63.8 % (47-70); POSITIVE DIFFERENTIAL YES; Platelet Count 291 K/mm3 (150-450); RBC Distribution Width CV 11.7 % (11.6-14.6); RBC Distribution Width SD 38.7 fl (35.1-43.9); Red Blood Count 4.54 M/mm3 (4.2-5.4); White Blood Count 18.3 K/mm3 (4.4-11.0)
[2023-01-03 08:39] LABS: Differential Indicated SCAN CRITERIA MET
[2023-01-03 09:06] LABS: Amylase 33 U/L (25-115); CRP < 2.90 mg/L (0.0-3.0); Lipase 141 U/L (73-393)
[2023-01-03 09:07] LABS: Erythrocyte Sedimentation Rate 24 mm/hr (0-30)
[2023-01-03 09:45] VITALS: BP 154/80; PULSE 63; RESP 18; TEMP 36.8; O2SAT 98
[2023-01-03] MEDS: Atenolol 25 MG Tablet PO (09:46)
[2023-01-03] MEDS: Aspirin E.C. 81 MG Tablet PO (09:46)
[2023-01-03] MEDS: Ondansetron 4 MG/2 ML Vial IV (09:47)
[2023-01-03] MEDS: Potassium Chloride Oral Tablet 20 MEQ 40 MEQ PO ×2 (09:47→17:15)
[2023-01-03] MEDS: Lisinopril 20 MG Tablet PO (09:47)
--- NOTE | 2023-01-03 12:01 | PN_ITS ---
Subjective Subjective Patient seen and examined. She still does complain of some abdominal pain but this is getting better. She denies any nausea or vomiting and her stool is also more formed. Review of systems otherwise negative. She has remained hemodynamically stable. Objective Data Objective Data Vital Signs: Vital Signs Temp Pulse Resp BP Pulse Ox O2 Del Method 98.3 F 63 18 154/80 H 98 Room Air 01/03/23 09:45 01/03/23 09:45 01/03/23 09:45 01/03/23 09:45 01/03/23 09:45 01/03/23 09:45 Oxygen Delivery Method Room Air Weight: 173 lb 4.533 oz Body Mass Index (BMI) 33.8 Intake & Output: Intake and Output for Last 24 Hours 01/01/23 01/02/23 01/03/23 23:59 23:59 23:59 Intake Total 2735.41 / 3235.41 4367.5 / 4367.5 1169.17 / 1169.17 Balance 2735.41 / 3235.41 4367.5 / 4367.5 1169.17 / 1169.17 Lab / Micro Data Result Diagrams: 01/03/23 08:09 01/02/23 07:35 Labs: Laboratory Results - last 24 hr 12/31/22 04:37: Hepatitis A IgM Ab Negative, Hep Bs Antigen Negative, Hep B Core IgM Ab Negative, Hepatitis C Ab (EIA) Non Reactive, Hep C Ab Comment Comment, TB Test (QFT) Nil 0.04, TB Test (QFT) Mitogen > 10.00, TB Test (QFT) Ag 1 0.07, TB Test (QFT) Ag 2 0.06, TB Test (QFT) Comment, TB Positive Criteria Negative 01/02/23 07:35: Tumor Marker AFP 2.5, Carcinoembryonic Ag 2.4 01/03/23 08:09: C-React Prot Ext Range < 2.90, Amylase 33, Lipase 141 01/03/23 08:09: WBC 18.3 H, RBC 4.54, Hgb 14.4, Hct 41.2, MCV 90.7, MCH 31.7, MCHC 35.0, RDW Std Deviation 38.7, RDW Coeff of Jessica 11.7, Plt Count 291, MPV 9.8, Immature Gran % (Auto) 0.500, Neut % (Auto) 63.8, Lymph % (Auto) 29.0, [place] % (Auto) 6.3, Eos % (Auto) 0.2, Baso % (Auto) 0.2, Absolute Neuts (auto) 11.7 H, Absolute Lymphs (auto) 5.31 H, Nucleated RBC % 0, Differential Comment COMMENT, ESR 24 Physical Exam Const alert, oriented x3 and no apparent distress General Appearance: cooperative and well developed HEENT normocephalic, head/scalp atraumatic and moist oral mucous membranes Eyes PERRL, EOMs intact bilaterally and conjunctivae normal Neck no lymphadenopathy, supple and no JVD Lymph Lymphatic: no lymphadenopathy noted Resp normal respiratory effort, normal air movement, no retractions, no use of accessory muscles and clear to auscultation bilaterally Cardio regular rate, regular rhythm, S1 normal heart sound, S2 normal heart sound and no murmurs GI normal to inspection, nondistended, normoactive bowel sounds, soft to palpation, non-tender and non-distended Extremity normal to inspection, normal capillary refill and no clubbing, cyanosis or edema Skin General Skin Exam: no breakdown Neuro oriented x3, CN's II-XII intact bilaterally, moves all extremities and no focal motor deficits Sensorium / Orientation: awake and alert Motor Exam: strength 5/5 throughout Psych affect normal Appearance: appropriate Assessment & Plan Assessment/Plan (1) Crohns disease: (2) C. difficile colitis: (3) Nausea vomiting and diarrhea: PLAN: Plan #Acute flare up of Crohn's disease * Abdominal pain has improved but seems like she has a bit of a flareup when she takes the full liquid diet. * GI on board * also on oral vancomycin for C Diff. * per GI, to be started on azathioprine once C Diff resolves. * She did have an abdominal MRI yesterday which showed dilated intra and extrahepatic ducts thought to be related to prior cholecystectomy, but was otherwise normal There are dilated ducts were noted to be stable * #C. difficile colitis: * on oral vancomycin. to complete a 10 day course- till 01/10/2023 #Hypertension: On atenolol as well as lisinopril and spironolactone #Hyperlipidemia: On famotidine #Hypothyroidism: On Synthroid DVT prophylaxis: Lovenox CODE STATUS: Full code * Disposition: anticipate dc home over the next 24 hours. Charges/Coding Visit Charges Inpatient E&M: 85638 Subs Hosp L2
[2023-01-03 14:16] LABS: Anti-Mitochondrial AB <20.0 Units (0.0-20.0)
[2023-01-03 15:45] VITALS: BP 150/75; PULSE 70; RESP 18; TEMP 36.9; O2SAT 97
[2023-01-03 17:07] LABS: IgG, Quant 1144 mg/dL (586-1602); Immunoglobulin G, Subclass 1 732 mg/dL (248-810); Immunoglobulin G, Subclass 2 266 mg/dL (130-555); Immunoglobulin G, Subclass 3 13 mg/dL (15-102); Immunoglobulin G, Subclass 4 32 mg/dL (2-96)
--- NOTE | 2023-01-03 18:08 | PN_ITS ---
Subjective Subjective Patient still rates her pain at a 5 out of 10 and then when she eats it goes up until 8 out of 10. I explained to her that at this time she can be given all of the medicines that she is getting in the hospital orally. Objective Data Objective Data Vital Signs: Vital Signs Temp Pulse Resp BP Pulse Ox O2 Del Method 98.4 F 70 18 150/75 H 97 Room Air 01/03/23 15:45 01/03/23 15:45 01/03/23 15:45 01/03/23 15:45 01/03/23 15:45 01/03/23 15:45 Oxygen Delivery Method Room Air Weight: 173 lb 4.533 oz Body Mass Index (BMI) 33.8 Intake & Output: Intake and Output for Last 24 Hours 01/01/23 01/02/23 01/03/23 23:59 23:59 23:59 Intake Total 2735.41 / 3235.41 4367.5 / 4367.5 2409.17 / 2409.17 Balance 2735.41 / 3235.41 4367.5 / 4367.5 2409.17 / 2409.17 Lab / Micro Data Result Diagrams: 01/03/23 08:09 01/02/23 07:35 Labs: Laboratory Results - last 24 hr 01/02/23 07:35: Tumor Marker AFP 2.5, Carcinoembryonic Ag 2.4 01/02/23 07:35: Anti-Mitochondrial Ab <20.0 01/03/23 08:09: C-React Prot Ext Range < 2.90, Amylase 33, Lipase 141 01/03/23 08:09: WBC 18.3 H, RBC 4.54, Hgb 14.4, Hct 41.2, MCV 90.7, MCH 31.7, MCHC 35.0, RDW Std Deviation 38.7, RDW Coeff of Jessica 11.7, Plt Count 291, MPV 9.8, Immature Gran % (Auto) 0.500, Neut % (Auto) 63.8, Lymph % (Auto) 29.0, [place] % (Auto) 6.3, Eos % (Auto) 0.2, Baso % (Auto) 0.2, Absolute Neuts (auto) 11.7 H, Absolute Lymphs (auto) 5.31 H, Nucleated RBC % 0, Differential Comment COMMENT, ESR 24 Physical Exam Const alert, oriented x3 and no apparent distress General Appearance: cooperative and well developed HEENT normocephalic, head/scalp atraumatic and moist oral mucous membranes Eyes PERRL, EOMs intact bilaterally and conjunctivae normal Neck no lymphadenopathy, supple and no JVD Lymph Lymphatic: no lymphadenopathy noted Resp normal respiratory effort, normal air movement, no retractions, no use of acc essory muscles and clear to auscultation bilaterally Cardio regular rate, regular rhythm, S1 normal heart sound, S2 normal heart sound and no murmurs GI normal to inspection, nondistended, normoactive bowel sounds, soft to palpation, non-tender and non-distended Extremity normal to inspection, normal capillary refill and no clubbing, cyanosis or edema Skin General Skin Exam: no breakdown Neuro oriented x3, CN's II-XII intact bilaterally, moves all extremities and no focal motor deficits Sensorium / Orientation: awake and alert Motor Exam: strength 5/5 throughout Psych affect normal Appearance: appropriate Assessment & Plan Assessment/Plan (1) Crohns disease: PLAN: Patient is. Previous diagnosis of Crohn's disease. Her previous study had shown she had inflammation around the terminal ileum. Her current studies show that she has a ileitis. Stool studies are positive for C. difficile PCR RNA quant and positive for fecal lactoferrin. She is tolerating steroid therapy. Recommend to continue current dosing and hopefully we can transition to equivalent dose as an outpatient. 01/01/2023-it is okay to advance her diet. I would like to start on Azathiopurine, but she is currently being treated for C.diff. 01/02/2023-agree with clear liquid diet. I will not increase any immu nosuppression at this time. 01/03/2023-advance diet is much as possible. Patient can be DC'd tomorrow. (2) C. difficile colitis: PLAN: Vancomycin 125 mg p.o. every 6 hours. She does seem to have some bloating and some abdominal dull discomfort. I will add Reglan 2.5 mg IV every 6 hours [id number]. 01/01/2023-patient is not having any side effects to Reglan. Recommend to continue. (3) Abdominal pain: PLAN: Abdominal pain likely secondary to mild Ileitis secondary to Crohn's disease and acute C. difficile colitis. Continue medical therapy. She did have mild elevation in her LFTs and her MRI shows stable dilation consistent with previous cholecystectomy without any filling defects in the common bile duct. Increased LFTs possibly secondary to biliary stasis from patient not eating. (4) Liver lesion: PLAN: No lesion was seen on MRI as was seen previously on CT scan abdomen pelvis. Charges/Coding Visit Charges Inpatient E&M: 94592 Subs Hosp L3
[2023-01-03] MEDS: Gabapentin 600 MG Tablet PO (20:03)
[2023-01-03 20:58] LABS: Anti-Smooth Muscle ABS 11 Units (0-19)
[2023-01-03 21:30] VITALS: BP 152/89; PULSE 51; RESP 18; TEMP 36.8; O2SAT 98
[2023-01-04 03:00] VITALS: BP 138/77; PULSE 55; RESP 18; TEMP 36.6; O2SAT 98
[2023-01-04] MEDS: oxyCODONE 5 MG Tablet PO ×2 (03:21→09:06)
[2023-01-04] MEDS: 0.9% Saline Lock 10 ML Syringe IV ×2 (04:34→05:32)
[2023-01-04] MEDS: Morphine 2 MG/ML Syringe IV (04:34)
[2023-01-04] MEDS: Metoclopramide 10 MG/2 ML Vial 2.5 MG IV ×2 (05:32→11:44)
[2023-01-04] MEDS: Levothyroxine 75 MCG Tablet PO (05:32)
[2023-01-04] MEDS: Vancomycin 125 MG/5 ML Susp PO.SYRINGE PO ×2 (05:32→11:43)
[2023-01-04] MEDS: 0.9% Normal Saline 1,000 ML 125 ML IV (05:37)
[2023-01-04 07:16] LABS: Basophil# 0.02 X10^3/uL; Basophil% 0.1 % (0-1); Eosinophil# 0.03 X10^3/uL; Eosinophils% 0.2 % (0-5); Hemoglobin 13.6 g/dL (12.0-15.0); Lymphocyte % 30.3 % (19-41); Mean Corpuscular Hgb 31.5 pg (27.0-32.0); Mean Corpuscular Volume 92.6 fL (81-99); Monocyte# 0.99 X10^3/uL; Monocyte% 6.2 % (0-10); NRBC Flagged by Analyzer 0 % (0-5); Neutrophil # 9.95 X10^3/uL (2.7-7.7); Neutrophil % 62.8 % (47-70); Platelet Count 278 K/mm3 (150-450); RBC Distribution Width CV 11.8 % (11.6-14.6); RBC Distribution Width SD 40.1 fl (35.1-43.9); Red Blood Count 4.32 M/mm3 (4.2-5.4); White Blood Count 15.9 K/mm3 (4.4-11.0)
[2023-01-04 07:49] LABS: Anion Gap 7 (5-15); BUN 12 mg/dL (7-18); BUN/Creat Ratio 17.4 RATIO (10-20); Calcium,Total 8.8 mg/dL (8.5-10.1); Chloride 106 mmol/L (98-107); Creatinine, Serum 0.69 mg/dL (0.55-1.02); EST Glomerular Filtration Rate 91 mL/min (>60); Est Glom Filt Rate - Afr Amer 110 mL/min (>60); Estimated Creatinine Clearance 59.94 ml/min; Glucose 78 mg/dL (74-106); Potassium 4.3 mmol/L (3.5-5.1); Sodium Level 141 mmol/L (136-145)
--- NOTE | 2023-01-04 08:00 | PN_ITS ---
Subjective Subjective She complains of mild abdominal pain as she is able to keep down solid foods and liquids. Objective Data Objective Data Vital Signs: Vital Signs Temp Pulse Resp BP Pulse Ox O2 Del Method 98.5 F 70 18 151/68 H 97 Room Air 01/04/23 11:15 01/04/23 11:15 01/04/23 11:15 01/04/23 11:15 01/04/23 11:15 01/04/23 11:15 Oxygen Delivery Method Room Air Weight: 173 lb 4.533 oz Body Mass Index (BMI) 33.8 Intake & Output: Intake and Output for Last 24 Hours 01/02/23 01/03/23 01/04/23 23:59 23:59 23:59 Intake Total 4367.5 / 4367.5 3409.17 / 3409.17 915.83 / 915.83 Balance 4367.5 / 4367.5 3409.17 / 3409.17 915.83 / 915.83 Lab / Micro Data Result Diagrams: 01/04/23 05:35 01/04/23 05:35 Labs: Laboratory Results - last 24 hr 01/02/23 07:35: Anti-Mitochondrial Ab <20.0 01/02/23 07:35: IgG Total 1144, IgG1 732, IgG2 266, IgG3 13 L, IgG4 32, Anti- Smooth Muscle Ab 11 01/04/23 05:35: WBC 15.9 H, RBC 4.32, Hgb 13.6, Hct 40.0, MCV 92.6, MCH 31.5, MCHC 34.0, RDW Std Deviation 40.1, RDW Coeff of Jessica 11.8, Plt Count 278, MPV 10.0, Immature Gran % (Auto) 0.400, Neut % (Auto) 62.8, Lymph % (Auto) 30.3, [place] % (Auto) 6.2, Eos % (Auto) 0.2, Baso % (Auto) 0.1, Absolute Neuts (auto) 10.0 H, Absolute Lymphs (auto) 4.80 H, Nucleated RBC % 0 01/04/23 05:35: Sodium 141, Potassium 4.3, Chloride 106, Carbon Dioxide 28.0, Anion Gap 7, BUN 12, Creatinine 0.69, Estim Creat Clear Calc 59.94, Est GFR (MDRD) Af Amer 110, Est GFR (MDRD) Non-Af 91, BUN/Creatinine Ratio 17.4, Glucose 78, Calcium 8.8 Physical Exam Const alert, oriented x3 and no apparent distress General Appearance: cooperative, comfortable, well kempt and well developed Orientation / Consciousness: awake Exam Limitations: no limitations HEENT normocephalic, head/scalp atraumatic, hearing grossly normal bilaterally and moist oral mucous membranes Mouth: oral and palatal mucosa normal Eyes PERRL, EOMs intact bilaterally and conjunctivae normal Neck no lymphadenopathy, supple and no JVD Lymph Lymphatic: no lymphadenopathy noted Resp normal respiratory effort, normal air movement, no retractions, no use of accessory muscles and clear to auscultation bilaterally Cardio regular rate, regular rhythm, S1 normal heart sound, S2 normal heart sound and no murmurs GI normal to inspection, nondistended, normoactive bowel sounds, soft to palpation, non-tender and non-distended GI Narrative: abdominal tenderness has resolved, no organomegaly. Extremity normal to inspection, full ROM, normal capillary refill and no clubbing, cyanosis or edema Skin no rashes or lesions noted General Skin Exam: no breakdown Neuro oriented x3, CN's II-XII intact bilaterally, moves all extremities and no focal motor deficits Sensorium / Orientation: awake and alert Motor Exam: strength 5/5 throughout Psych affect normal Appearance: appropriate Assessment & Plan Assessment/Plan (1) Crohns disease: PLAN: Patient is. Previous diagnosis of Crohn's disease. Her previous study had shown she had inflammation around the terminal ileum. Her current studies show that she has a ileitis. Stool studies are positive for C. difficile PCR RNA quant and positive for fecal lactoferrin. She is tolerating steroid therapy. Recommend to continue current dosing and hopefully we can transition to equivalent dose as an outpatient. 01/01/2023-it is okay to advance her diet. I would like to start on Azathiopurine, but she is currently being treated for C.diff. 01/02/2023-agree with clear liquid diet. I will not increase any immunosuppression at this time. 01/03/2023-advance diet is much as possible. Patient can be DC'd tomorrow. 01/04/2023-patient still has mild pain but I think that she can go home as clinically she looks stable. (2) C. difficile colitis: PLAN: Vancomycin 125 mg p.o. every 6 hours. She does seem to have some bloating and some abdominal dull discomfort. I will add Reglan 2.5 mg IV every 6 hours [id number]. 01/01/2023-patient is not having any side effects to Reglan. Recommend to continue. (3) Abdominal pain: PLAN: Abdominal pain likely secondary to mild Ileitis secondary to Crohn's disease and acute C. difficile colitis. Continue medical therapy. She did have mild elevation in her LFTs and her MRI shows stable dilation consistent with previous cholecystectomy without any filling defects in the common bile duct. Increased LFTs possibly secondary to biliary stasis from patient not eating. (4) Liver lesion: PLAN: No lesion was seen on MRI as was seen previously on CT scan abdomen pelvis. Charges/Coding Visit Charges Inpatient E&M: 86545 Subs Hosp L3
[2023-01-04 09:00] VITALS: BP 151/68; PULSE 70; RESP 18; TEMP 36.9; O2SAT 97
[2023-01-04] MEDS: Lisinopril 20 MG Tablet PO (09:05)
[2023-01-04] MEDS: Aspirin E.C. 81 MG Tablet PO (09:05)
[2023-01-04] MEDS: Atenolol 25 MG Tablet PO (09:05)
[2023-01-04] MEDS: Potassium Chloride Oral Tablet 20 MEQ 40 MEQ PO (09:06)
--- NOTE | 2023-01-04 11:06 | DS.PCM_ITS ---
Providers Date of Admission: 12/30/22 Date of Discharge: 01/04/23 Primary Care Physician: [facility] Consultations 12/30/22 08:14 Consult: Gastroenterology Routine Consulting Provider: [facility] Reason for Consult: Crohn's flareup and C Diff, failed outpatient therapy EMERGENT Consult: No MD Notified: Yes Date Notified: 12/30/22 Time Notified: 07:29 Method of Notification: Text Reason For Visit: C DIFF, CROH'S DISEASE FLARE UP Diagnosis Discharge Diagnosis (1) Crohns disease: Status: Chronic Code(s): K50.90 - Crohn's disease, unspecified, without complications (2) C. difficile colitis: Status: Acute Code(s): A04.72 - Enterocolitis due to Clostridium difficile, not specified as recurrent (3) Abdominal pain: Status: Acute Code(s): R10.9 - Unspecified abdominal pain (4) Liver lesion: Status: Acute Code(s): K76.9 - Liver disease, unspecified Plan #Acute flare up of Crohn's disease * Abdominal pain has improved but seems like she has a bit of a flareup when she takes the full liquid diet. * GI on board * also on oral vancomycin for C Diff. * per GI, to be started on azathioprine once C Diff resolves. * She did have an abdominal MRI yesterday which showed dilated intra and extrahepatic ducts thought to be related to prior cholecystectomy, but was otherwise normal There are dilated ducts were noted to be stable * #C. difficile colitis: * on oral vancomycin. to complete a 10 day course- till 01/10/2023 #Hypertension: On atenolol as well as lisinopril and spironolactone #Hyperlipidemia: On famotidine #Hypothyroidism: On Synthroid DVT prophylaxis: Lovenox CODE STATUS: Full code * Disposition: anticipate dc home over the next 24 hours. Medications at Discharge Home Medications aspirin 81 mg tablet,delayed release (Ecotrin Low Strength) 81 mg PO DAILY 12/21/13 gabapentin 600 mg tablet (Neurontin) 600 mg PO BID PRN Pain 12/21/13 lisinopril 20 mg tablet 20 mg PO DAILY 12/21/13 atenolol 25 mg tablet 25 mg PO DAILY 11/24/18 levothyroxine 75 mcg capsule 75 mcg PO DAILY 11/11/22 spironolactone 25 mg tablet 25 mg PO DAILY 11/11/22 Lactobacillus acidophilus 20 billion cell capsule (Florajen Acidophilus) 10 mg PO DAILY . 12/28/22 atorvastatin 40 mg tablet 40 mg PO QHS CHOLESTEROL 12/28/22 famotidine 20 mg tablet 20 mg PO DAILY PRN Stomach Upset 12/28/22 fluticasone propionate 50 mcg/actuation nasal spray,suspension 2 spray intranasal DAILY PRN ALLERGIES 12/28/22 loratadine 10 mg tablet 10 mg PO DAILY ALLERGIES 12/28/22 multivitamin with folic acid 400 mcg tablet (Therems Multivitamin) 1 tab PO DAILY SUPPLEMENT 12/28/22 oxycodone-acetaminophen 5 mg-325 mg tablet 1 tab PO Q6H PRN PRN Pain 3 days #12 TABLETS 12/28/22 potassium chloride 20 mEq tablet,extended release(part/cryst) (Klor-Con M) 40 meq PO BID POTASSIUM 12/28/22 prednisone 20 mg tablet 20 mg PO DAILY 14 days #14 tabs 01/04/23 vancomycin 25 mg/mL oral solution (Firvanq) 125 mg (5 mL) PO Q6 7 days #140 mL 01/04/23 Hospital Course Operations None Procedures None Summary of Care Provided Minutes Spent on Discharge: 45 Hospital Course: ISAAC LOPEZ, is a 62 F with a PMH who presents via the ED with a complaint of nausea, vomiting and diarrhea which has been going on for ~ 2-3 weeks. She does have a history of Crohnb's disease and sees Dr Cervantes. She was seen in the ED ~ 12/26/2022 and was diagnosed with C Diff infection; she was started on oral vancomycin and oral prednisone added on. CT then showed ileitis. She also had flagyl added on. She had still been having diarrhea and abdominal pain, nausea, and vomiting and unable to keep her meds down, so she came in to the ED. She denied any fever, chills, chest pain, palpitations or any urinary symptoms. Review of systems is otherwise negative. Vitals in the ED were BP of 167/91, GA of 68, RR of 18 and temp of 97.7F. She was saturating at 99% on room air. CBC showed wbc of 15.6, Hb of 13.8, platelets of 278; chemistry was remarkable for lactic acid of 2.1, but was otherwise unr emarkable. Acute abdomen series showed some scattered air fluid levels without dilated bowel loops indicative of ileus. She was admitted to be managed for acute flare up of Crohn's disease as well as C diff, failed outpatient therapy. She was hydrated with IV fluids and placed on IV Solu-Medrol and p.o. vancomycin. Gastroenterology was consulted. Her diarrhea gradually improved and her abdominal pain also improved. She had MRI of the abdomen which showed dilated intra and extrahepatic ducts thought to be related to prior cholecystectomy, but was otherwise normal? There are dilated ducts were noted to be stable. She was started on a diet which she was able to tolerate. She remained stable and was discharged on 01/04/2023. She was discharged on p.o. prednisone 20 mg daily for 2 weeks per gastroenterology recommendation and was also discharged on a course of oral vancomycin to complete a 10-day course. She is to follow-up with her primary care doctor and with gastroenterology. Patient requested for a new PCP and so was referred to [facility]. Patient seen and examined prior to discharge. She had no active complaints and had an uneventful night. Abdominal pain had improved and she was tolerating a diet. Review of systems otherwise negative. Labs and vitals reviewed. Home medication reviewed and reconciled. Physical Exam Const alert, oriented x3 and no apparent distress General Appearance: cooperative, comfortable, well kempt and well developed Orientation / Consciousness: awake Exam Limitations: no limitations HEENT normocephalic, head/scalp atraumatic, hearing grossly normal bilaterally and moist oral mucous membranes Mouth: oral and palatal mucosa normal Eyes PERRL, EOMs intact bilaterally and conjunctivae normal Neck no lymphadenopathy, supple and no JVD Lymph Lymphatic: no lymphadenopathy noted Resp normal respiratory effort, normal air movement, no retractions, no use of accessory muscles and clear to auscultation bilaterally Cardio regular rate, regular rhythm, S1 normal heart sound, S2 normal heart sound and no murmurs GI normal to inspection, nondistended, normoactive bowel sounds, soft to palpation, non-tender and non-distended GI Narrative: abdominal tenderness has resolved, no organomegaly. Extremity normal to inspection, full ROM, normal capillary refill and no clubbing, cyanosis or edema Skin no rashes or lesions noted General Skin Exam: no breakdown Neuro oriented x3, CN's II-XII intact bilaterally, moves all extremities and no focal motor deficits Sensorium / Orientation: awake and alert Motor Exam: strength 5/5 throughout Psych affect normal Appearance: appropriate Weight / BMI Weight Weight: 173 lb 4.533 oz Body Mass Index (BMI) 33.8 ABG / Lab / Microbiology Data Result Diagrams: 01/04/23 05:35 01/04/23 05:35 Laboratory: Laboratory Results - last 24 hr 01/02/23 07:35: Anti-Mitochondrial Ab <20.0 01/02/23 07:35: IgG Total 1144, IgG1 732, IgG2 266, IgG3 13 L, IgG4 32, Anti- Smooth Muscle Ab 11 01/04/23 05:35: WBC 15.9 H, RBC 4.32, Hgb 13.6, Hct 40.0, MCV 92.6, MCH 31.5, MCHC 34.0, RDW Std Deviation 40.1, RDW Coeff of Jessica 11.8, Plt Count 278, MPV 10.0, Immature Gran % (Auto) 0.400, Neut % (Auto) 62.8, Lymph % (Auto) 30.3, M [place] % (Auto) 6.2, Eos % (Auto) 0.2, Baso % (Auto) 0.1, Absolute Neuts (auto) 10.0 H, Absolute Lymphs (auto) 4.80 H, Nucleated RBC % 0 01/04/23 05:35: Sodium 141, Potassium 4.3, Chloride 106, Carbon Dioxide 28.0, Anion Gap 7, BUN 12, Creatinine 0.69, Estim Creat Clear Calc 59.94, Est GFR (MDRD) Af Amer 110, Est GFR (MDRD) Non-Af 91, BUN/Creatinine Ratio 17.4, Glucose 78, Calcium 8.8 D/C Instructions Discharge Diet: Low fat / Low cholesterol Discharge Activity: Return to Normal Activity Weight Bearing Status: Weight bearing as tolerated Call your doctor if you observe: Fever of 101 or Higher and - (abdominal pain, worsening diarrhea) Meaningful Use Info Meaningful Use Diagnoses (Choose all that apply): None applicable Discharge Plan Admission Admit Date/Time: 12/30/22 07:25 Primary Reason for Your Visit: C diff colitis Attending Provider: Tiffany Muñoz Primary Care Provider: Care Physician,No Primary Instructions Patient Instructions: C diff Discharge Orders/Prescriptions Prescriptions: New Firvanq 25 mg/mL Recon Soln 125 mg PO Q6 7 Days Qty: 140 0RF prednisone 20 mg tablet 20 mg PO DAILY 14 Days Qty: 14 0RF Continued spironolactone 25 mg tablet 25 mg PO DAILY levothyroxine 75 mcg capsule 75 mcg PO DAILY gabapentin [Neurontin] 600 MG tablet 600 mg PO BID PRN (Reason: Pain) lisinopril 20 MG tablet 20 mg PO DAILY aspirin [Ecotrin Low Strength] 81 MG tablet,delayed release (DR/EC) 81 mg PO DAILY atenolol 25 MG tablet 25 mg PO DAILY atorvastatin 40 mg tablet 40 mg PO QHS Label Comments: TAKE 1 TABLET BY MOUTH DAILY AT BEDTIME. FOR CHOLESTEROL potassium chloride [Klor-Con M20] 20 mEq tablet,ER particles/crystals 40 meq PO BID Label Comments: TAKE 2 TABLETS BY MOUTH IN THE MORNING AND 2 TABLETS IN THE EVENING famotidine 20 mg tablet 20 mg PO DAILY PRN (Reason: Stomach Upset) Label Comments: TAKE 1 TAB TWICE DAILY NEEDED. TAKE 1 TAB TWICE DAILY. MAY TAKE AN ADDITIONAL TABLET NEEDED. fluticasone propionate 50 mcg/actuation spray,suspension 2 spray INTRANASAL DAILY PRN (Reason: ALLERGIES) Label Comments: USE 2 SPRAYS IN EACH NOSTRIL ONCE DAILY. RINSE MOUTH AFTER USE. loratadine 10 mg tablet 10 mg PO DAILY Label Comments: TAKE 1 TABLET BY MOUTH EVERY DAY Florajen Acidophilus 20 billion cell Capsule 10 mg PO DAILY multivitamin with folic acid [Therems Multivitamin] 400 mcg tablet 1 tab PO DAILY Label Comments: TAKE 1 TABLET BY MOUTH EVERY DAY oxycodone-acetaminophen 5-325 mg tablet 1 tab PO Q6H PRN PRN (Reason: Pain) 3 Days Qty: 12 0RF Discontinued vancomycin 125 mg capsule 125 mg PO DIRECTED metronidazole 500 mg tablet 500 mg PO Q8H Qty: 21 0RF prednisone 20 mg tablet 60 mg PO DAILY Qty: 14 0RF Referrals / Follow Up: Kashmir Leong MD [Non-Staff] - Sergio Mesa MD [Med Staff - Active Staff] - Within 2 Weeks (see to establish PCP care) Arthur Cervantes DO [Med Staff - Active Staff] - Within 2 Weeks Care Physician,No Primary [Primary Care Provider] - Disposition Disposition (needs filled in before D/C Order can be placed): Home, Self Care Charges/Coding Visit Charges Inpatient E&M: 63286 Disch Hosp >30min
[2023-01-04 11:15] VITALS: BP 151/68; PULSE 70; RESP 18; TEMP 36.9; O2SAT 97
== END 2023-01-04 12:50 | disposition home or self-care (01) | DRG 387 ==
LOC: ED 07:34 → PCU 07:43
PROVIDERS: Internal Medicine Gastroenterology; Admitting Provider Student in an Organized Health Care Education/Training Program; Emergency Provider Emergency Medicine; Visit Provider Student in an Organized Health Care Education/Training Program
DX: K50.90 Crohn's disease, unspecified, without complications (principal); A04.72 Enterocolitis due to Clostridium difficile, not specified as recurrent; E03.9 Hypothyroidism, unspecified; I10 Essential (primary) hypertension; E78.5 Hyperlipidemia, unspecified; Z90.49 Acquired absence of other specified parts of digestive tract; Z79.82 Long term (current) use of aspirin; Z79.899 Other long term (current) drug therapy; Z87.891 Personal history of nicotine dependence
CPT/HCPCS: 36415; 74022; 74177; 74183; 80048; 80053; 80074; 81001; 82105; 82150; 82378; 82653; 82784; 82785; 82787; 83516; 83605; 83615; 83630; 83690; 83993; 84165; 85025; 85652; 86140; 86225; 86235; 86255; 86256; 86334; 86480; 87177; 87209; 87329; 87493; 96374; 96375; 99283; 99285; 99406; A9575; J7030; Q9967; A4216; J2405

== ENCOUNTER 2023-01-10 17:41 | Emergency (ER) | payer MEDICARE, MEDICAID, SELFPAY ==
[2023-01-10 17:42] VITALS: BP 165/115; PULSE 71; RESP 18; TEMP 36.1; O2SAT 95; BMI 32.4
[2023-01-10 18:27] LABS: Absolute Lymphocyte Count 2.48 X10^3/uL (0.83-4.51); Basophil# 0.01 X10^3/uL; Basophil% 0.1 % (0-1); Hematocrit 45.2 % (37-47); Hemoglobin 15.6 g/dL (12.0-15.0); Lymphocyte # 2.48 X10^3/ul (0.83-4.51); Lymphocyte % 14.5 % (19-41); Mean Corp Hgb Conc 34.5 g/dL (32-36); Mean Corpuscular Hgb 31.5 pg (27.0-32.0); Mean Corpuscular Volume 91.3 fL (81-99); Mean Platelet Vol. 9.7 fl (6.2-12.0); Monocyte# 0.55 X10^3/uL; Monocyte% 3.2 % (0-10); NRBC Flagged by Analyzer 0 % (0-5); Neutrophil # 13.96 X10^3/uL (2.7-7.7); Neutrophil % 81.8 % (47-70); Platelet Count 278 K/mm3 (150-450); RBC Distribution Width CV 11.9 % (11.6-14.6); RBC Distribution Width SD 39.4 fl (35.1-43.9); Red Blood Count 4.95 M/mm3 (4.2-5.4); White Blood Count 17.1 K/mm3 (4.4-11.0)
[2023-01-10 18:41] LABS: Anion Gap 7 (5-15); BUN 20 mg/dL (7-18); BUN/Creat Ratio 24.2 RATIO (10-20); Calcium,Total 10.2 mg/dL (8.5-10.1); Chloride 104 mmol/L (98-107); Creatinine, Serum 0.83 mg/dL (0.55-1.02); EST Glomerular Filtration Rate 74 mL/min (>60); Est Glom Filt Rate - Afr Amer 89 mL/min (>60); Estimated Creatinine Clearance 49.83 ml/min; Glucose 152 mg/dL (74-106); Potassium 4.3 mmol/L (3.5-5.1); Sodium Level 137 mmol/L (136-145)
--- NOTE | 2023-01-10 19:07 | CT_ITS ---
STUDY: CT Abdomen And Pelvis W/ Contrast Injection 01/10/2023 9:32 PM REASON FOR EXAM: Female, 62 years old. Abdominal pain abdominal pain -- Recent C-Diff, Chron''s, Diverticulosis. Elevated WBC. N/V/D Individualized dose optimization techniques were used for this CT. COMPARISON: 12.28.22. TECHNIQUE: CT Abdomen And Pelvis W/ Contrast Injection Oral and amp; IV Gastrografin and amp; 100mL [id number] FINDINGS: There are atherosclerotic calcifications of visualized coronary arteries. The visualized portions of the heart are within normal limits. There is intrahepatic ductal dilation. There are surgical clips in the gallbladder fossa consistent with a prior cholecystectomy. Normal spleen. Normal pancreas. Stable hypodense liver lesion. There is dilation of the common bile duct but normal distal tapering. Normal bilateral adrenal glands. No acute findings of the right kidney. No acute findings of the left kidney. Normal visualized stomach. There is wall thickening along the terminal ileum. They may represent residual terminal ileitis. However, a mass is difficult to exclude. There are multiple colonic diverticula consistent with diverticulosis. The appendix is visualized and appears normal. There are calcifications of the abdominal aorta. This is consistent for atherosclerotic disease. There is NO abdominal aortic aneurysm. Vascular workup can be obtained based on clinical correlation. Normal inferior vena cava. Subcentimeter mesenteric lymph nodes. Normal urinary bladder. Normal abdominal wall. There are diffuse degenerative changes of the visualized lumbar spine. CT/Abdomen/Pelvis WITH Contrast IMPRESSION: (NOT LISTED IN ORDER OF SIGNIFICANCE) There is increased intrahepatic dilation since the prior study. CBD appears mildly more dilated but there is normal distal tapering which can be seen post cholecystectomy. Stable liver lesion may relate to regional fatty infiltration. There is wall thickening along the terminal ileum. They may represent residual terminal ileitis. However, a mass is difficult to exclude. Other findings as above. Electronically Signed: Nelson Porter MD at 21:40 EDT ,
--- NOTE | 2023-01-10 19:09 | EX.ED.DYSGE1 ---
HPI History of Present Illness Chief Complaint: Abd Pain Informant: patient Onset/Context/Timing Context: Gradual Onset Timing: Waxes and wanes Narrative Narrative: Patient presents secondary to continued abdominal pain and poor p.o. intake. She was admitted to the hospital December 30 through the with C. difficile colitis and Crohn's flare. She is finishing up her oral vancomycin at this time and is currently on prednisone twice daily. Patient states anytime she tries to eat or drink anything she will get abdominal cramping. She has not had a fever. [facility] Medical History Clostridioides difficile infection Crohns disease Depression Diverticulitis Esophageal reflux Hypothyroidism Internal hemorrhoids Liver lesion Lumbago PTSD (post-traumatic stress disorder) Sleep apnea Home Medications aspirin 81 mg tablet,delayed release (Ecotrin Low Strength) 81 mg PO DAILY 12/21/13 [History Last Taken 12/20/13 09:00] gabapentin 600 mg tablet (Neurontin) 600 mg PO BID PRN Pain 12/21/13 [History Last Taken 12/27/22] lisinopril 20 mg tablet 20 mg PO DAILY 12/21/13 [History Last Taken 12/28/22] atenolol 25 mg tablet 25 mg PO DAILY 11/24/18 [History Last Taken 12/27/22] levothyroxine 75 mcg capsule 75 mcg PO DAILY 11/11/22 [History Last Taken 12/28/22] spironolactone 25 mg tablet 25 mg PO DAILY 11/11/22 [History Last Taken Unknown] Lactobacillus acidophilus 20 billion cell capsule (Florajen Acidophilus) 10 mg PO DAILY . 12/28/22 [History Last Taken 12/27/22] atorvastatin 40 mg tablet 40 mg PO QHS CHOLESTEROL 12/28/22 [History Last Taken 12/27/22] famotidine 20 mg tablet 20 mg PO DAILY PRN Stomach Upset 12/28/22 [History Last Taken Unknown] fluticasone propionate 50 mcg/actuation nasal spray,suspension 2 spray intranasal DAILY PRN ALLERGIES 12/28/22 [History Last Taken 1 Week Ago ~12/21/22] loratadine 10 mg tablet 10 mg PO DAILY ALLERGIES 12/28/22 [History Last Taken 12/27/22] multivitamin with folic acid 400 mcg tablet (Therems Multivitamin) 1 tab PO DAILY SUPPLEMENT 12/28/22 [History Last Taken 12/27/22] oxycodone-acetaminophen 5 mg-325 mg tablet 1 tab PO Q6H PRN PRN Pain 3 days #12 TABLETS 12/28/22 [Rx Last Taken Unknown] potassium chloride 20 mEq tablet,extended release(part/cryst) (Klor-Con M) 40 meq PO BID POTASSIUM 12/28/22 [History Last Taken 12/27/22] prednisone 20 mg tablet 20 mg PO DAILY 14 days #14 tabs 01/04/23 [Rx Last Taken Unknown] vancomycin 25 mg/mL oral solution (Firvanq) 125 mg (5 mL) PO Q6 7 days #140 mL 01/04/23 [Rx Last Taken Unknown] hydrocodone-acetaminophen 5-325mg 5mg-325mg 1 tab PO Q6H PRN PRN Pain 3 days #10 TABLETS 01/10/23 [Rx Last Taken Unknown] ondansetron 4 mg disintegrating tablet 4 mg PO Q8H PRN PRN Nausea #10 tabs 01/10/23 [Rx Last Taken Unknown] Allergy/AdvReac Type Severity Reaction Status Date / Time Penicillins [PCN] Allergy Unknown Verified 01/10/23 17:45 Tetracyclines AdvReac Nausea Verified 01/10/23 17:45 Social History Smoking Status: Former smoker substance use type: marijuana ROS ROS ED Constitutional Constitutional ED: Denies chills or fever(s) Eyes Eyes: Denies change in vision or discharge from eye(s) ENT ENT ED: Denies discharge from eye(s), rhinorrhea or sore throat Cardiovascular Cardiovascular: Denies chest pain or palpitations Respiratory/Chest Respiratory/Chest: Denies cough or dyspnea Gastrointestinal Gastrointestinal: Reports abdominal pain and nausea; Denies diarrhea or vomiting Genitourinary Genitourinary ED: Denies dysuria Musculoskeletal Musculoskeletal: Denies back pain or extremity pain Integumentary Denies Abrasions or rash Neurologic Neurologic: Denies headache(s) or weakness Psychiatric Psychiatric: Denies anxiety or depression Allergic/Immunologic Allergic/Immunologic ED: Denies lip swelling or urticaria EXAM Physical Exam Const Vital Signs: 01/10/23 17:42 01/10/23 19:32 Temperature 97 F L Temperature Source Temporal Pulse Rate 71 55 L Respiratory Rate 18 18 Blood Pressure 165/115 H 171/71 H Blood Pressure Mean 131 104 Pulse Ox 95 96 Oxygen Delivery Method Room Air Room Air Positive well nourished and well developed General Appearance ED: well developed HEENT Reports normocephalic and head/scalp atraumatic Eyes PERRL and EOMs intact bilaterally Neck supple Chest Wall inspection of chest normal and palpation of chest normal Resp normal respiratory effort and clear to auscultation bilaterally Cardio regular rate and regular rhythm GI GI Narrative: Abdomen soft with mild diffuse tenderness palpation. No guarding or rebound. Palpation: soft Extremity normal to inspection Neuro oriented x3 and no sensory deficits noted Sensorium / Orientation: alert Motor Exam: strength 5/5 throughout Psych mental status grossly normal Skin no rashes or lesions noted MDM MDM MDM Narrative Medical decision making narrative: Patient given morphine and Zofran for pain and nausea. Labwork obtained to evaluate for leukocytosis, anemia, and electrolyte derangement. Urinalysis obtained to evaluate for infection/hematuria. CT scan of the abdomen pelvis obtained. History & Record Review Discussion w/independent historian: Patient and Significant other Additional record(s) reviewed:: Prior inpatient record, Prior ED visit and Prior labs Lab Data Attestation: I reviewed the patient's lab results. Labs: Laboratory Results - last 24 hr 01/10/23 01/10/23 01/10/23 18:21 18:21 18:21 WBC 17.1 H RBC 4.95 Hgb 15.6 H Hct 45.2 MCV 91.3 MCH 31.5 MCHC 34.5 RDW Std Deviation 39.4 RDW Coeff of Jessica 11.9 Plt Count 278 MPV 9.7 Immature Gran % (Auto) 0.400 Neut % (Auto) 81.8 H Lymph % (Auto) 14.5 L [place] % (Auto) 3.2 Eos % (Auto) 0.0 Baso % (Auto) 0.1 Absolute Neuts (auto) 14.0 H Absolute Lymphs (auto) 2.48 Nucleated RBC % 0 Sodium 137 Potassium 4.3 Chloride 104 Carbon Dioxide 26.0 Anion Gap 7 BUN 20 H Creatinine 0.83 Estim Creat Clear Calc 49.83 Est GFR (MDRD) Af Amer 89 Est GFR (MDRD) Non-Af 74 BUN/Creatinine Ratio 24.2 H Glucose 152 H Calcium 10.2 H Total Bilirubin 0.60 Direct Bilirubin 0.17 AST 25 ALT 57 H Alkaline Phosphatase 71 Total Protein 8.4 H Albumin 4.2 Globulin 4.2 Lipase 752 H Urine Color Urine Clarity Urine pH Ur Specific [place] Urine Protein Urine Glucose (UA) Urine Ketones Urine Occult Blood Urine Nitrite Urine Bilirubin Urine Urobilinogen Ur Leukocyte Esterase Urine RBC Urine WBC Ur Squamous Epith Cells Urine Bacteria Urine Mucus 01/10/23 19:40 WBC RBC Hgb Hct MCV MCH MCHC RDW Std Deviation RDW Coeff of Jessica Plt Count MPV Immature Gran % (Auto) Neut % (Auto) Lymph % (Auto) [place] % (Auto) Eos % (Auto) Baso % (Auto) Absolute Neuts (auto) Absolute Lymphs (auto) Nucleated RBC % Sodium Potassium Chloride Carbon Dioxide Anion Gap BUN Creatinine Estim Creat Clear Calc Est GFR (MDRD) Af Amer Est GFR (MDRD) Non-Af BUN/Creatinine Ratio Glucose Calcium Total Bilirubin Direct Bilirubin AST ALT Alkaline Phosphatase Total Protein Albumin Globulin Lipase Urine Color Yellow Urine Clarity Clear Urine pH 6.5 Ur Specific [place] 1.015 Urine Protein 15 H Urine Glucose (UA) Normal Urine Ketones Negative Urine Occult Blood 25 H Urine Nitrite Negative Urine Bilirubin Negative Urine Urobilinogen Normal Ur Leukocyte Esterase 25 H Urine RBC 0 SEEN Urine WBC 0-5 SEEN Ur Squamous Epith Cells 0 SEEN Urine Bacteria 0 SEEN Urine Mucus 0 SEEN Radiography Diagnostic Testing: Clinical Impression(s) from Imaging Studies Abdomen/Pelvis CT 01/10/23 19:07 IMPRESSION: (NOT LISTED IN ORDER OF SIGNIFICANCE) There is increased intrahepatic dilation since the prior study. CBD appears mildly more dilated but there is normal distal tapering which can be seen post cholecystectomy. Stable liver lesion may relate to regional fatty infiltration. There is wall thickening along the terminal ileum. They may represent residual terminal ileitis. However, a mass is difficult to exclude. Other findings as above. Electronically Signed: Nelson Porter MD at 21:40 EDT , Management Discussion w/another healthcare provider: [employer] (GI, Dr. Cervantes.) Treatment and Re-Evaluation :: CBC is reviewed. White count is elevated at 17.1, however patient is currently on prednisone. Hemoglobin is slightly concentrated at 15.6. BUN is slightly up at 20 with creatinine of 0.83. Glucose is 152. LFTs are unremarkable. Lipase is elevated at 752, not quite twice the upper limit of normal. Urinalysis is unremarkable. CT of the abdomen and pelvis reveals slight increase in intrahepatic dilatation. Common bile duct is mildly more dilated. She is already had a cholecystectomy. There is also wall thickening along the terminal ileum which may represent residual terminal ileitis. Mass cannot be excluded. Patient is known to Dr. Cervantes. I spoke with him this evening. He states that the genetic testing and inflammatory markers are negative and he is not able to confirm at this time whether she has Crohn's or not. He wants her to continue the prednisone that she is currently on. I will also write her Todd and Christel for home. She will follow a bland diet with small frequent meals. Return instructions given. Discharge Plan Triage Chief Complaint: Abd Pain ED Provider: Luba Godoy Dx/Rx/DC Orders Clinical Impression: Abdominal pain Instructions: ED Abdominal Pain Unkn Cause Fem Prescriptions: New hydrocodone-acetaminophen 5-325 mg tablet 1 tab PO Q6H PRN PRN (Reason: Pain) 3 Days Qty: 10 0RF ondansetron 4 mg tablet,disintegrating 4 mg PO Q8H PRN PRN (Reason: Nausea) Qty: 10 0RF No Action spironolactone 25 mg tablet 25 mg PO DAILY levothyroxine 75 mcg capsule 75 mcg PO DAILY gabapentin [Neurontin] 600 MG tablet 600 mg PO BID PRN (Reason: Pain) lisinopril 20 MG tablet 20 mg PO DAILY aspirin [Ecotrin Low Strength] 81 MG tablet,delayed release (DR/EC) 81 mg PO DAILY atenolol 25 MG tablet 25 mg PO DAILY atorvastatin 40 mg tablet 40 mg PO QHS Label Comments: TAKE 1 TABLET BY MOUTH DAILY AT BEDTIME. FOR CHOLESTEROL potassium chloride [Klor-Con M20] 20 mEq tablet,ER particles/crystals 40 meq PO BID Label Comments: TAKE 2 TABLETS BY MOUTH IN THE MORNING AND 2 TABLETS IN THE EVENING famotidine 20 mg tablet 20 mg PO DAILY PRN (Reason: Stomach Upset) Label Comments: TAKE 1 TAB TWICE DAILY NEEDED. TAKE 1 TAB TWICE DAILY. MAY TAKE AN ADDITIONAL TABLET NEEDED. fluticasone propionate 50 mcg/actuation spray,suspension 2 spray INTRANASAL DAILY PRN (Reason: ALLERGIES) Label Comments: USE 2 SPRAYS IN EACH NOSTRIL ONCE DAILY. RINSE MOUTH AFTER USE. loratadine 10 mg tablet 10 mg PO DAILY Label Comments: TAKE 1 TABLET BY MOUTH EVERY DAY Florajen Acidophilus 20 billion cell Capsule 10 mg PO DAILY multivitamin with folic acid [Therems Multivitamin] 400 mcg tablet 1 tab PO DAILY Label Comments: TAKE 1 TABLET BY MOUTH EVERY DAY oxycodone-acetaminophen 5-325 mg tablet 1 tab PO Q6H PRN PRN (Reason: Pain) 3 Days Qty: 12 0RF Firvanq 25 mg/mL Recon Soln 125 mg PO Q6 7 Days Qty: 140 0RF prednisone 20 mg tablet 20 mg PO DAILY 14 Days Qty: 14 0RF Primary Care Provider: Jessica Buenrostro Referrals: Kashmir Leong MD [Non-Staff] - Arthur Cervantes DO [Med Staff - Active Staff] - 10-14 Days if not better Disposition Disposition: Home, Self Care
[2023-01-10 19:32] VITALS: BP 171/71; PULSE 55; RESP 18; O2SAT 96
[2023-01-10] MEDS: Ondansetron 4 MG/2 ML Vial IV (19:37)
[2023-01-10] MEDS: Morphine 4 MG/ML Syringe IV (19:37)
[2023-01-10] MEDS: 0.9% Normal Saline 1,000 ML 150 ML IV (19:37)
[2023-01-10 19:53] LABS: Bacteria 0 SEEN /hpf (None Seen); Mucous, Urine 0 SEEN /hpf (<or=2+); Red Blood Cells-Urine 0 SEEN /hpf (0-5); Squamous Epithelial Cells - UA 0 SEEN /hpf (5-10)
[2023-01-10 19:54] LABS: Color, Urine Yellow (Yellow); Glucose, Dipstick Normal (Normal); Ketone-Dipstick Negative (Negative); Leukocyte Esterase-Dipstick 25 /ul (Negative); Nitrite-Dipstick Negative (Negative); Occult Blood-Urine 25 /ul (Negative); Protein-Dipstick 15 mg/dl (Negative); Specific Gravity, Urine 1.015 (1.002-1.030); Urine Bilirubin Dipstick Negative (Negative); Urine Clarity Clear (Clear); Urine Urobilinogen Normal (Normal); Urine pH 6.5 (5.0 - 8.0)
[2023-01-10 20:18] LABS: White Blood Cells 0-5 SEEN /hpf (0-5)
[2023-01-10 20:56] LABS: AST(SGOT) 25 U/L (15-37); Alanine Aminotransfer ALT/SGPT 57 U/L (13-56); Albumin, Serum 4.2 g/dL (3.2-5.0); Alkaline Phosphatase 71 U/L (45-117); Bilirubin, Direct 0.17 mg/dL (0.00-0.30); Globulin 4.2 g/dL (2.2-4.2); Lipase 752 U/L (73-393); Protein, Total 8.4 g/dL (6.4-8.2)
[2023-01-10 22:45] VITALS: BP 163/72; PULSE 64; RESP 18; O2SAT 97
== END 2023-01-10 22:45 | disposition home or self-care (01) ==
PROVIDERS: Emergency Provider Emergency Medicine; PCP Internal Medicine; Visit Provider Emergency Medicine
DX: R10.9 Unspecified abdominal pain (principal); F12.90 Cannabis use, unspecified, uncomplicated; G47.30 Sleep apnea, unspecified; Z87.891 Personal history of nicotine dependence
CPT/HCPCS: 74177; 80048; 80076; 81001; 83690; 85025; 96361; 96374; 96375; 99283; J7030; Q9967; A4216; J2405

== ENCOUNTER 2023-01-14 21:28 | Emergency (ER) | payer MEDICARE, MEDICAID, SELFPAY ==
[2023-01-14 21:30] VITALS: BP 180/78; PULSE 66; RESP 20; TEMP 36.2; O2SAT 99; BMI 32.1
--- NOTE | 2023-01-14 22:02 | EDS_ITS ---
HPI HPI - GI History of Present Illness Chief Complaint: Abd Pain Informant: patient Narrative Narrative: Patient states she was admitted to the hospital for about a week recently, for C. difficile colitis and Crohn's exacerbation. She did not have surgery. She has been home for about 3 weeks and has been having the same pain she had in the hospital ever since, it waxes and wanes, it has been progressively getting worse. She was seen in the ER 4 days ago here for the same and had a CT, she was given fluids and analgesics and discharged home, she has been on prednisone 20 mg daily ever since she was discharged, she is having trouble eating because it makes the pain worse, she is basically having meals that consist of a piece of peanut butter toast and meals are infrequent. She has been losing weight. She has had no more diarrhea since she has been home. She is having nonbloody small caliber bowel movements. No melena. Occasional nausea but no vomiting. No radiation or migration of the pain which is mostly lower abdomen. Scheduled for GI follow-up but is later this week. [facility] Medical History Allergies Back problem Bone fracture Clostridioides difficile infection Crohns disease Depression Diverticulitis Esophageal reflux Gallstones Gastrointestinal problem H/O emotional problems High cholesterol Hx: UTI (urinary tract infection) Hypothyroidism Internal hemorrhoids Liver lesion Lumbago Neuropathy Osteopenia Pneumonia PTSD (post-traumatic stress disorder) Recurrent infections Sleep apnea Thyroid disease Vitamin deficiency Home Medications aspirin 81 mg tablet,delayed release (Ecotrin Low Strength) 81 mg PO DAILY 11/28 03/09 [History Last Taken 12/20/13 09:00] gabapentin 600 mg tablet (Neurontin) 600 mg PO BID PRN Pain 12/21/13 [History Last Taken 12/27/22] lisinopril 20 mg tablet 20 mg PO DAILY 12/21/13 [History Last Taken 12/28/22] atenolol 25 mg tablet 25 mg PO DAILY 11/24/18 [History Last Taken 12/27/22] levothyroxine 75 mcg capsule 75 mcg PO DAILY 11/11/22 [History Last Taken 12/28/22] spironolactone 25 mg tablet 25 mg PO DAILY 11/11/22 [History Last Taken Unknown] Lactobacillus acidophilus 20 billion cell capsule (Florajen Acidophilus) 10 mg PO DAILY . 12/28/22 [History Last Taken 12/27/22] atorvastatin 40 mg tablet 40 mg PO QHS CHOLESTEROL 12/28/22 [History Last Taken 12/27/22] famotidine 20 mg tablet 20 mg PO DAILY PRN Stomach Upset 12/28/22 [History Last Taken Unknown] fluticasone propionate 50 mcg/actuation nasal spray,suspension 2 spray intranasal DAILY PRN ALLERGIES 12/28/22 [History Last Taken 1 Week Ago ~12/21/22] loratadine 10 mg tablet 10 mg PO DAILY ALLERGIES 12/28/22 [History Last Taken 12/27/22] multivitamin with folic acid 400 mcg tablet (Therems Multivitamin) 1 tab PO DAILY SUPPLEMENT 12/28/22 [History Last Taken 12/27/22] potassium chloride 20 mEq tablet,extended release(part/cryst) (Klor-Con M) 40 meq PO BID POTASSIUM 12/28/22 [History Last Taken 12/27/22] vancomycin 25 mg/mL oral solution (Firvanq) 125 mg (5 mL) PO Q6 7 days #140 mL 01/04/23 [Rx Last Taken Unknown] ondansetron 4 mg disintegrating tablet 4 mg PO Q8H PRN PRN Nausea #10 tabs 01/10/23 [Rx Last Taken Unknown] calcium carbonate 600 mg-vitamin D3 5 mcg (200 unit) tablet 1 ea PO DAILY 01/13/23 [History Last Taken Unknown] cyclobenzaprine 10 mg tablet 1 tablet PO PRN PRN Back Pain 01/13/23 [History Last Taken Unknown] lidocaine 4 % topical patch 1 patch topical DAILY PRN Pain 01/13/23 [History Last Taken Unknown] loratadine 10 mg tablet 10 mg PO DAILY 01/13/23 [History Last Taken Unknown] oxycodone-acetaminophen 5 mg-325 mg tablet 1 tab PO Q6H PRN PRN Pain 3 days #12 TABLETS 01/15/23 [Rx Last Taken Unknown] prednisone 20 mg tablet 40 mg PO DAILY 3 days #6 tabs 01/15/23 [Rx Last Taken Unknown] Allergy/AdvReac Type Severity Reaction Status Date / Time Penicillins [PCN] Allergy Unknown Verified 01/14/23 21:29 Tetracyclines AdvReac Nausea Verified 01/14/23 21:29 Family History (Updated 01/13/23 @ 12:10 by Katerin Jacobs) Grandmother Bowel disease Myocardial infarction Hypertension Aunt Bowel disease Ovarian cancer Mother Diabetes High cholesterol Father Diabetes Heart disease Thyroid disorder Father Myocardial infarction Hypertension High cholesterol Other Anemia Colon cancer Surgical History History of cholecystectomy History of hysterectomy Hx of section Social History Smoking Status: Former smoker substance use type: marijuana ROS ROS ED Constitutional Constitutional ED: Reports anorexia, malaise, weakness and weight loss; Denies chills or fever(s) Eyes Eyes: Denies change in vision or diplopia ENT ENT ED: Denies rhinorrhea or sore throat Cardiovascular Cardiovascular: Reports lightheadedness; Denies chest pain or palpitations Respiratory/Chest Respiratory/Chest: Denies cough or dyspnea Gastrointestinal Gastrointestinal: Reports abdominal pain and nausea; Denies diarrhea, hematemesis, hematochezia, melena or vomiting Genitourinary Genitourinary ED: Denies dysuria or hematuria Musculoskeletal Musculoskeletal: Denies back pain or neck pain Integumentary Denies abscess or rash Neurologic Neurologic: Denies headache(s), paresthesias or weakness Psychiatric Psychiatric: Denies anxiety or suicidal thoughts EXAM Physical Exam Const Vital Signs: 01/14/23 21:30 Temperature 97.1 F L Temperature Source Temporal Pulse Rate 66 Respiratory Rate 20 H Blood Pressure 180/78 H Blood Pressure Mean 112 Pulse Ox 99 Oxygen Delivery Method Room Air Positive well nourished and well developed General Appearance ED: well developed and NAD HEENT Reports moist mucous membranes normocephalic and atraumatic Eyes PERRL and EOMs intact bilaterally Neck full ROM and supple Resp normal respiratory effort and clear to auscultation bilaterally Cardio regular rate, regular rhythm and no murmurs GI non-distended GI Narrative: Diffuse tenderness mostly lower abdomen nonlateralizing nonfocal no hepatomegaly or splenomegaly palpable Auscultation: hyperactive bowel sounds Palpation: soft Back/Spine no CVA tenderness General Back: other FROM Extremity normal to inspection General Extremety ED: Negative for edema, pulses abnormal or tenderness General Extremity: Negative for edema or pulses abnormal Neuro oriented x3, CN's II-XII intact bilaterally and no sensory deficits noted Sensorium / Orientation: awake and alert Motor Exam: strength 5/5 throughout Psych Mood & Affect: anxious Skin no rashes or lesions noted and no wounds MDM MDM MDM Narrative Medical decision making narrative: Labs were obtained, while patient was given IV fluids, morphine, Zofran. She felt much better on reevaluation. She is ambulatory. She is tolerating some oral fluids. She is on prednisone so I would expect a leukocytosis, her white blood count is actually lower than it was 4 days ago. I reviewed her CT scan, she had some terminal ileitis at that time, and she states the pain that she is having now, as well as the other symptoms, are the same, her pain was just worse, and no vomiting to suggest an acute small bowel obstruction. Therefore, I do not think she needs to have another CT scan, although it was considered before getting the labs. I attempted to get a hold of Dr. Cervantes, but he was not available at the time. Patient has an appointment to see him in 3 days. She is having no more diarrhea, is finished with the C. difficile antibiotics, and is on prednisone 20 mg daily has not started tapering any of that yet. She is not on Biologics at this time. I think discharging her and doubling her prednisone to 40 mg/day until she follows up is reasonable, we will also prescribe her some oxycodone which she was using to help try to get some food in her. She is comfortable with that plan, given Solu-Medrol 62.5 mg here, she had her initial dose of prednisone 20 mg today earlier. History & Record Review Additional record(s) reviewed:: Prior inpatient record (GI c/s) and Prior ED visit (With contrasted CT abdomen/pelvis 4 days ago) Lab Data Attestation: I reviewed the patient's lab results. Labs: Laboratory Results - last 24 hr 01/14/23 01/14/23 22:25 22:25 WBC 13.7 H RBC 4.76 Hgb 15.0 Hct 43.5 MCV 91.4 MCH 31.5 MCHC 34.5 RDW Std Deviation 38.9 RDW Coeff of Jessica 11.6 Plt Count 269 MPV 10.1 Immature Gran % (Auto) 0.300 Neut % (Auto) 71.2 H Lymph % (Auto) 23.9 [place] % (Auto) 4.5 Eos % (Auto) 0.0 Baso % (Auto) 0.1 Absolute Neuts (auto) 9.7 H Absolute Lymphs (auto) 3.27 Nucleated RBC % 0 Sodium 141 Potassium 3.5 Chloride 109 H Carbon Dioxide 23.0 Anion Gap 9 BUN 21 H Creatinine 0.80 Estim Creat Clear Calc 51.70 Est GFR (MDRD) Af Amer 93 Est GFR (MDRD) Non-Af 77 BUN/Creatinine Ratio 26.2 H Glucose 126 H Calcium 9.5 Total Bilirubin 0.70 AST 13 L ALT 48 Alkaline Phosphatase 68 Total Protein 7.5 Albumin 3.8 Globulin 3.7 Albumin/Globulin Ratio 1.0 Lipase 247 Discharge Plan Triage Chief Complaint: Abd Pain ED Provider: Josef Lugo Dx/Rx/DC Orders Clinical Impression: Exacerbation of Crohn's disease of small intestine Instructions: Crohns Disease Dc Prescriptions: Continued spironolactone 25 mg tablet 25 mg PO DAILY levothyroxine 75 mcg capsule 75 mcg PO DAILY cyclobenzaprine 10 mg tablet 1 tablet PO PRN PRN (Reason: Back Pain) lidocaine 4 % adhesive patch,medicated 1 patch topical DAILY PRN (Reason: Pain) calcium carbonate-vitamin D3 600 mg-5 mcg (200 unit) tablet 1 ea PO DAILY Label Comments: TAKE 1 TABLET BY MOUTH TWICE A DAY loratadine 10 mg tablet 10 mg PO DAILY gabapentin [Neurontin] 600 MG tablet 600 mg PO BID PRN (Reason: Pain) lisinopril 20 MG tablet 20 mg PO DAILY aspirin [Ecotrin Low Strength] 81 MG tablet,delayed release (DR/EC) 81 mg PO DAILY atenolol 25 MG tablet 25 mg PO DAILY atorvastatin 40 mg tablet 40 mg PO QHS Label Comments: TAKE 1 TABLET BY MOUTH DAILY AT BEDTIME. FOR CHOLESTEROL potassium chloride [Klor-Con M20] 20 mEq tablet,ER particles/crystals 40 meq PO BID Label Comments: TAKE 2 TABLETS BY MOUTH IN THE MORNING AND 2 TABLETS IN THE EVENING famotidine 20 mg tablet 20 mg PO DAILY PRN (Reason: Stomach Upset) Label Comments: TAKE 1 TAB TWICE DAILY NEEDED. TAKE 1 TAB TWICE DAILY. MAY TAKE AN ADDIT IONAL TABLET NEEDED. fluticasone propionate 50 mcg/actuation spray,suspension 2 spray INTRANASAL DAILY PRN (Reason: ALLERGIES) Label Comments: USE 2 SPRAYS IN EACH NOSTRIL ONCE DAILY. RINSE MOUTH AFTER USE. loratadine 10 mg tablet 10 mg PO DAILY Label Comments: TAKE 1 TABLET BY MOUTH EVERY DAY Florajen Acidophilus 20 billion cell Capsule 10 mg PO DAILY multivitamin with folic acid [Therems Multivitamin] 400 mcg tablet 1 tab PO DAILY Label Comments: TAKE 1 TABLET BY MOUTH EVERY DAY Firvanq 25 mg/mL Recon Soln 125 mg PO Q6 7 Days Qty: 140 0RF ondansetron 4 mg tablet,disintegrating 4 mg PO Q8H PRN PRN (Reason: Nausea) Qty: 10 0RF oxycodone-acetaminophen 5-325 mg tablet 1 tab PO Q6H PRN PRN (Reason: Pain) 3 Days Qty: 12 0RF Changed prednisone 20 mg tablet 40 mg PO DAILY 3 Days Qty: 6 0RF Discontinued hydrocodone-acetaminophen 5-325 mg tablet 1 tab PO Q6H PRN PRN (Reason: Pain) 3 Days Qty: 10 0RF Primary Care Provider: Jessica Buenrostro Referrals: Jessica Buenrostro MD [Primary Care Provider] - Arthur Cervantes DO [Med Staff - Active Staff] - Keep Carlos appointment Disposition Disposition: Home, Self Care
[2023-01-14] MEDS: Ondansetron 4 MG/2 ML Vial IV (22:12)
[2023-01-14] MEDS: Dicyclomine 20 MG/2 ML Vial IM (22:12)
[2023-01-14] MEDS: Morphine 4 MG/ML Syringe IV (22:13)
[2023-01-14] MEDS: 0.9% Normal Saline 1,000 ML 1000 ML IV (22:13)
[2023-01-14 22:33] LABS: Absolute Lymphocyte Count 3.27 X10^3/uL (0.83-4.51); Absolute Neutrophil Count 9.7 X10^3/uL (2.0-7.7); Basophil# 0.02 X10^3/uL; Basophil% 0.1 % (0-1); Hematocrit 43.5 % (37-47); Lymphocyte # 3.27 X10^3/ul (0.83-4.51); Lymphocyte % 23.9 % (19-41); Mean Corp Hgb Conc 34.5 g/dL (32-36); Mean Corpuscular Hgb 31.5 pg (27.0-32.0); Mean Corpuscular Volume 91.4 fL (81-99); Mean Platelet Vol. 10.1 fl (6.2-12.0); Monocyte# 0.62 X10^3/uL; Monocyte% 4.5 % (0-10); NRBC Flagged by Analyzer 0 % (0-5); Neutrophil # 9.74 X10^3/uL (2.7-7.7); Neutrophil % 71.2 % (47-70); Platelet Count 269 K/mm3 (150-450); RBC Distribution Width CV 11.6 % (11.6-14.6); RBC Distribution Width SD 38.9 fl (35.1-43.9); Red Blood Count 4.76 M/mm3 (4.2-5.4); White Blood Count 13.7 K/mm3 (4.4-11.0)
[2023-01-14 22:47] LABS: AST(SGOT) 13 U/L (15-37); Alanine Aminotransfer ALT/SGPT 48 U/L (13-56); Albumin, Serum 3.8 g/dL (3.2-5.0); Alkaline Phosphatase 68 U/L (45-117); Anion Gap 9 (5-15); BUN 21 mg/dL (7-18); BUN/Creat Ratio 26.2 RATIO (10-20); Calcium,Total 9.5 mg/dL (8.5-10.1); Chloride 109 mmol/L (98-107); EST Glomerular Filtration Rate 77 mL/min (>60); Est Glom Filt Rate - Afr Amer 93 mL/min (>60); Globulin 3.7 g/dL (2.2-4.2); Glucose 126 mg/dL (74-106); Lipase 247 U/L (73-393); Potassium 3.5 mmol/L (3.5-5.1); Protein, Total 7.5 g/dL (6.4-8.2); Sodium Level 141 mmol/L (136-145)
[2023-01-15] MEDS: MethylPREDNISolone 125 MG/2 ML Vial 62.5 MG IV (00:05)
[2023-01-15 00:15] VITALS: BP 101/87; O2SAT 97
== END 2023-01-15 00:40 | disposition home or self-care (01) ==
PROVIDERS: Emergency Provider Emergency Medicine; PCP Internal Medicine; Visit Provider Emergency Medicine
DX: K50.90 Crohn's disease, unspecified, without complications (principal); G47.30 Sleep apnea, unspecified; F12.90 Cannabis use, unspecified, uncomplicated; E03.9 Hypothyroidism, unspecified; Z79.899 Other long term (current) drug therapy; Z79.82 Long term (current) use of aspirin; Z87.891 Personal history of nicotine dependence
CPT/HCPCS: 80053; 83690; 85025; 96361; 96372; 96374; 96375; 99285; J7030; A4216; J2405

== ENCOUNTER 2023-01-20 19:01 | Emergency (ER) | payer MEDICARE, MEDICAID, SELFPAY ==
[2023-01-20 19:02] VITALS: BP 201/91; PULSE 60; RESP 24; TEMP 36.4
--- NOTE | 2023-01-20 21:00 | CT_ITS ---
EXAM: CT ABDOMEN AND PELVIS WITH INTRAVENOUS CONTRAST CLINICAL INDICATION: Abdominal pain -- IV PO Contrast TECHNIQUE: Helically acquired images were obtained of the abdomen and pelvis with intravenous contrast. CTDIvol = ( 17.11 ) mGy, DLP = ( 936.43 ) mGycm This CT exam was performed using one or more of the following dose reduction techniques: automated exposure control, adjustment of the mA and/or kV according to patient size, and/or use of iterative reconstruction technique. This report was created using [employer] report generation technology. CONTRAST: Oral and amp; IV Gastrografin and amp; 100mL Isovue-370 COMPARISON: January 10, 2023 FINDINGS: LOWER THORAX: Unremarkable. Lung bases are clear. No cardiomegaly. No significant pericardial effusion. ABDOMEN: LIVER: Unremarkable. Homogeneous. No focal mass. GALLBLADDER AND BILE DUCTS: Dilated appearance of the extrahepatic and common bile ducts are unchanged status post cholecystectomy. PANCREAS: Unremarkable. No focal cystic or solid mass. SPLEEN: Unremarkable. Normal size without focal cystic or solid mass. ADRENALS: Unremarkable. No nodules. KIDNEYS AND URETERS: Unremarkable. Normal renal size and position. No hydronephrosis. STOMACH AND BOWEL: Thickening of the terminal ileum is unchanged from before. See prior report. No stomach or bowel distention. PELVIS: APPENDIX: No evidence of acute appendicitis. BLADDER: Unremarkable. REPRODUCTIVE: Unremarkable as visualized. No mass. ABDOMEN and PELVIS: INTRAPERITONEAL SPACE: Unremarkable. No ascites or other fluid collection. No free air. BONES/JOINTS: Unremarkable. No suspicious lytic or blastic abnormality. SOFT TISSUES: Unremarkable. No discrete abdominal or pelvic wall hernia. VASCULATURE: Unremarkable. Abdominal aorta is non-dilated. LYMPH NODES: Unremarkable. No enlarged lymph nodes. CT/Abdomen/Pelvis WITH Contrast IMPRESSION: 1. No acute or inflammatory disease or bowel obstruction. 2. Thickening of the terminal ileum is unchanged from before. See prior report. 3. Dilated appearance of the extrahepatic and common bile ducts are unchanged status post cholecystectomy. Electronically Signed: Casimiro Hastings MD at 23:15 EDT ,
[2023-01-20] MEDS: 0.9% Normal Saline 1,000 ML 1000 ML IV (21:15)
[2023-01-20] MEDS: Morphine 4 MG/ML Syringe IV (21:16)
[2023-01-20] MEDS: Ondansetron 4 MG/2 ML Vial IV (21:16)
[2023-01-20 21:29] LABS: Bacteria 0 SEEN /hpf (None Seen); Mucous, Urine 0 SEEN /hpf (<or=2+); Squamous Epithelial Cells - UA 0 SEEN /hpf (5-10); White Blood Cells 0 SEEN /hpf (0-5)
[2023-01-20 21:31] LABS: Absolute Lymphocyte Count 3.14 X10^3/uL (0.83-4.51); Absolute Neutrophil Count 10.2 X10^3/uL (2.0-7.7); Basophil# 0.02 X10^3/uL; Basophil% 0.1 % (0-1); Glucose, Dipstick Normal (Normal); Hemoglobin 14.6 g/dL (12.0-15.0); Ketone-Dipstick Negative (Negative); Leukocyte Esterase-Dipstick Negative /ul (Negative); Lymphocyte # 3.14 X10^3/ul (0.83-4.51); Lymphocyte % 22.5 % (19-41); Mean Corpuscular Hgb 31.5 pg (27.0-32.0); Mean Corpuscular Volume 92.9 fL (81-99); Mean Platelet Vol. 9.8 fl (6.2-12.0); Monocyte# 0.55 X10^3/uL; Monocyte% 3.9 % (0-10); NRBC Flagged by Analyzer 0 % (0-5); Neutrophil # 10.22 X10^3/uL (2.7-7.7); Neutrophil % 73.2 % (47-70); Nitrite-Dipstick Negative (Negative); Occult Blood-Urine 25 /ul (Negative); Platelet Count 266 K/mm3 (150-450); Protein-Dipstick Negative (Negative); RBC Distribution Width SD 40.6 fl (35.1-43.9); Red Blood Count 4.63 M/mm3 (4.2-5.4); Specific Gravity, Urine 1.005 (1.002-1.030); Urine Bilirubin Dipstick Negative (Negative); Urine Urobilinogen Normal (Normal)
[2023-01-20 21:46] LABS: ALB/GLOB Ratio 0.9 RATIO (0.9-2.4); AST(SGOT) 20 U/L (15-37); Alanine Aminotransfer ALT/SGPT 44 U/L (13-56); Albumin, Serum 3.6 g/dL (3.2-5.0); Alkaline Phosphatase 65 U/L (45-117); Anion Gap 4 (5-15); BUN 18 mg/dL (7-18); BUN/Creat Ratio 24.9 RATIO (10-20); Chloride 106 mmol/L (98-107); Creatinine, Serum 0.72 mg/dL (0.55-1.02); EST Glomerular Filtration Rate 86 mL/min (>60); Est Glom Filt Rate - Afr Amer 105 mL/min (>60); Globulin 3.9 g/dL (2.2-4.2); Glucose 116 mg/dL (74-106); Lipase 126 U/L (73-393); Potassium 4.2 mmol/L (3.5-5.1); Protein, Total 7.5 g/dL (6.4-8.2); Sodium Level 137 mmol/L (136-145)
[2023-01-20 21:48] LABS: Color, Urine Yellow (Yellow); Urine Clarity Clear (Clear)
[2023-01-20 21:53] LABS: Red Blood Cells-Urine 0-5 SEEN /hpf (0-5)
--- NOTE | 2023-01-20 22:38 | ED.VIS.GI ---
HPI HPI - GI History of Present Illness Chief Complaint: Abd Pain Informant: patient Abdominal Pain/Flank Pain Onset: Days Context: Gradual Onset Timing: Continuous and Waxes and wanes Quality: - (Tearing) Location: Diffuse Worsened by: Food Relieved by: Nothing Nausea/Vomiting/Emesis GI Symptom: Positive for Nausea; Negative for Vomiting Diarrhea/Melena/Hematochezia GI Symptom: Negative for Diarrhea, Melena or Hematochezia Associated Symptoms Associated Symptoms: Negative for Dysuria, Frequency or Hematuria Narrative Narrative: Patient presents with abdominal pain that became worse tonight. Patient states it is gradually been getting worse over the past several days. Patient states it has been constant with waxing and waning. Patient admits to some bloating. Patient states it feels like a tearing pain across her abdomen. Patient denies any radiation to her back. Patient states it is worse with any eating. Patient states nothing seems to help with it. Patient admits to nausea but denies any vomiting. Patient denies any diarrhea, melena, or hematochezia. Patient denies any dysuria, frequency, or hematuria. PFSH PFS Medical History Allergies Back problem Bone fracture Clostridioides difficile infection Crohns disease Depression Diverticulitis Esophageal reflux Gallstones Gastrointestinal problem H/O emotional problems High cholesterol Hx: UTI (urinary tract infection) Hypothyroidism Internal hemorrhoids Liver lesion Lumbago Neuropathy Osteopenia Pneumonia PTSD (post-traumatic stress disorder) Recurrent infections Sleep apnea Thyroid disease Vitamin deficiency Home Medications aspirin 81 mg tablet,delayed release (Ecotrin Low Strength) 81 mg PO DAILY 12/21/13 [History Last Taken 12/20/13 09:00] gabapentin 600 mg tablet (Neurontin) 600 mg PO BID PRN Pain 12/21/13 [History Last Taken 12/27/22] lisinopril 20 mg tablet 20 mg PO DAILY 12/21/13 [History Last Taken 12/28/22] atenolol 25 mg tablet 25 mg PO DAILY 11/24/18 [History Last Taken 12/27/22] levothyroxine 75 mcg capsule 75 mcg PO DAILY 11/11/22 [History Last Taken 12/28/22] spironolactone 25 mg tablet 25 mg PO DAILY 11/11/22 [History Last Taken Unknown] Lactobacillus acidophilus 20 billion cell capsule (Florajen Acidophilus) 10 mg PO DAILY . 12/28/22 [History Last Taken 12/27/22] atorvastatin 40 mg tablet 40 mg PO QHS CHOLESTEROL 12/28/22 [History Last Taken 12/27/22] famotidine 20 mg tablet 20 mg PO DAILY PRN Stomach Upset 12/28/22 [History Last Taken Unknown] fluticasone propionate 50 mcg/actuation nasal spray,suspension 2 spray intranasal DAILY PRN ALLERGIES 12/28/22 [History Last Taken 1 Week Ago ~12/21/22] loratadine 10 mg tablet 10 mg PO DAILY ALLERGIES 12/28/22 [History Last Taken 12/27/22] multivitamin with folic acid 400 mcg tablet (Therems Multivitamin) 1 tab PO DAILY SUPPLEMENT 12/28/22 [History Last Taken 12/27/22] potassium chloride 20 mEq tablet,extended release(part/cryst) (Klor-Con M) 40 meq PO BID POTASSIUM 12/28/22 [History Last Taken 12/27/22] vancomycin 25 mg/mL oral solution (Firvanq) 125 mg (5 mL) PO Q6 7 days #140 mL 01/04/23 [Rx Last Taken Unknown] ondansetron 4 mg disintegrating tablet 4 mg PO Q8H PRN PRN Nausea #10 tabs 01/10/23 [Rx Last Taken Unknown] calcium carbonate 600 mg-vitamin D3 5 mcg (200 unit) tablet 1 ea PO DAILY 01/13/23 [History Last Taken Unknown] cyclobenzaprine 10 mg tablet 1 tablet PO PRN PRN Back Pain 01/13/23 [History Last Taken Unknown] lidocaine 4 % topical patch 1 patch topical DAILY PRN Pain 01/13/23 [History Last Taken Unknown] loratadine 10 mg tablet 10 mg PO DAILY 01/13/23 [History Last Taken Unknown] oxycodone-acetaminophen 5 mg-325 mg tablet 1 tab PO BID PRN Pain 20 days #40 TABLETS 01/17/23 [Rx Last Taken Unknown] pantoprazole 40 mg tablet,delayed release 40 mg PO DAILY #30 tabs 01/17/23 [Rx Last Taken Unknown] prednisone 20 mg tablet 20 mg PO DAILY 30 days #30 tabs 01/17/23 [Rx Last Taken Unknown] dicyclomine 20 mg tablet 20 mg PO BID PRN abdominal discomfort #60 tabs 01/20/23 [Rx Last Taken Unknown] Allergy/AdvReac Type Severity Reaction Status Date / Time Penicillins [PCN] Allergy Unknown Verified 01/20/23 20:55 Tetracyclines AdvReac Nausea Verified 01/20/23 20:55 Family History (Updated 01/13/23 @ 12:10 by Katerin Jacobs) Grandmother Bowel disease Myocardial infarction Hypertension Aunt Bowel disease Ovarian cancer Mother Diabetes High cholesterol Father Diabetes Heart disease Thyroid disorder Father Myocardial infarction Hypertension High cholesterol Other Anemia Colon cancer Surgical History History of cholecystectomy History of hysterectomy Hx of section Social History Smoking Status: Former smoker substance use type: marijuana ROS ROS ED Constitutional Constitutional ED: Denies chills or fever(s) Eyes Eyes: Denies blurry vision or change in vision ENT ENT ED: Denies rhinorrhea or sore throat Cardiovascular Cardiovascular: Denies chest pain or palpitations Respiratory/Chest Respiratory/Chest: Denies cough or dyspnea Gastrointestinal Gastrointestinal: Reports abdominal pain and nausea; Denies diarrhea, melena or vomiting Genitourinary Genitourinary ED: Denies dysuria or hematuria Musculoskeletal Musculoskeletal: Denies back pain or neck pain Integumentary Denies abscess or rash Neurologic Neurologic: Denies headache(s) or weakness Allergic/Immunologic Allergic/Immunologic ED: Denies mouth swelling or urticaria EXAM Physical Exam Const Vital Signs: 01/20/23 19:02 01/20/23 23:12 Temperature 97.6 F L Temperature Source Temporal Pulse Rate 60 56 L Respiratory Rate 24 H 20 H Blood Pressure 201/91 H 166/70 H Blood Pressure Mean 127 102 Pulse Ox 99 Oxygen Delivery Method Room Air Positive well nourished and well developed General Appearance ED: well developed HEENT Reports moist mucous membranes Neck supple and no JVD Resp normal respiratory effort and clear to auscultation bilaterally Cardio regular rate, regular rhythm and no murmurs GI normal to inspection, nondistended, normoactive bowel sounds Palpation: soft and tender epigastric, LLQ, RLQ, LUQ, RUQ, periumbilical and suprapubic; Negative for guarding or rebound tenderness present Extremity normal to inspection General Extremety ED: Negative for edema or tenderness General Extremity: Negative for edema Neuro oriented x3, CN's II-XII intact bilaterally, moves all extremities and no sensory deficits noted Sensorium / Orientation: alert Motor Exam: strength 5/5 throughout Psych mental status grossly normal Skin no rashes or lesions noted MDM MDM MDM Narrative Medical decision making narrative: Differential diagnosis includes gastroenteritis, bowel obstruction, perforation, diverticulitis, pancreatitis, urinary tract infection, and pyelonephritis. CBC will be obtained to assess for leukocytosis and anemia. Comprehensive metabolic profile will be obtained to assess for electrolyte abnormality, hepatic function, and renal function. Lipase will be obtained to assess for pancreatitis. Urinalysis will be obtained to assess for urinary tract infection and hematuria. CT scan of the abdomen pelvis will be obtained to assess for bowel obstruction, perforation, abscess, and diverticulitis. History & Record Review Additional record(s) reviewed:: Prior labs Lab Data Lab results narrative: CBC was reviewed. There is a mild leukocytosis of 14.0. This is consistent with prior results. Comprehensive metabolic profile was reviewed and was within normal limits. Lipase was reviewed and was normal. Urinalysis was reviewed. There is no evidence of urinary tract infection. Labs: Laboratory Results - last 24 hr 01/20/23 01/20/23 01/20/23 21:19 21:19 21:19 WBC 14.0 H RBC 4.63 Hgb 14.6 Hct 43.0 MCV 92.9 MCH 31.5 MCHC 34.0 RDW Std Deviation 40.6 RDW Coeff of Jessica 12.0 Plt Count 266 MPV 9.8 Immature Gran % (Auto) 0.300 Neut % (Auto) 73.2 H Lymph % (Auto) 22.5 Tom[place]kins % (Auto) 3.9 Eos % (Auto) 0.0 Baso % (Auto) 0.1 Absolute Neuts (auto) 10.2 H Absolute Lymphs (auto) 3.14 Nucleated RBC % 0 Sodium 137 Potassium 4.2 Chloride 106 Carbon Dioxide 27.0 Anion Gap 4 L BUN 18 Creatinine 0.72 Est GFR (MDRD) Af Amer 105 Est GFR (MDRD) Non-Af 86 BUN/Creatinine Ratio 24.9 H Glucose 116 H Calcium 9.0 Total Bilirubin 0.30 AST 20 ALT 44 Alkaline Phosphatase 65 Total Protein 7.5 Albumin 3.6 Globulin 3.9 Albumin/Globulin Ratio 0.9 Lipase 126 Urine Color Yellow Urine Clarity Clear Urine pH 7.0 Ur Specific [place] 1.005 Urine Protein Negative Urine Glucose (UA) Normal Urine Ketones Negative Urine Occult Blood 25 H Urine Nitrite Negative Urine Bilirubin Negative Urine Urobilinogen Normal Ur Leukocyte Esterase Negative Urine RBC 0-5 SEEN Urine WBC 0 SEEN Ur Squamous Epith Cells 0 SEEN Urine Bacteria 0 SEEN Urine Mucus 0 SEEN Radiography Diagnostic Testing: Clinical Impression(s) from Imaging Studies Abdomen/Pelvis CT 01/20/23 21:00 IMPRESSION: 1. No acute or inflammatory disease or bowel obstruction. 2. Thickening of the terminal ileum is unchanged from before. See prior report. 3. Dilated appearance of the extrahepatic and common bile ducts are unchanged status post cholecystectomy. Electronically Signed: Casimiro Hastings MD at 23:15 EDT , CT scan of the abdomen pelvis was obtained. There is no acute inflammatory process. There is no free air or free fluid. There is no evidence of obstruction. There is some thickening of the terminal ileum which is unchanged from previous result. There is dilated extrahepatic and common bile ducts which are unchanged from previous exam. This was interpreted by the radiologist and was also independently reviewed by myself. Treatment and Re-Evaluation :: Patient was given IV fluids, morphine, and Zofran. Patient was advised of her findings. Patient was still having some pain on reevaluation. Patient was given a dose of Dilaudid. Patient states she has Percocet at home and Bentyl which she has been taking. Patient was instructed to continue these as previously prescribed. Patient was instructed to follow-up with her primary care physician and cager operator as scheduled. Patient understands and is agreeable with the plan. All questions were answered. Discharge Plan Triage Chief Complaint: Abd Pain ED Provider: Paul Finch Dx/Rx/DC Orders Clinical Impression: Abdominal pain, Gastrointestinal problem Instructions: ED Abdominal Pain Unkn Cause Fem Prescriptions: No Action spironolactone 25 mg tablet 25 mg PO DAILY levothyroxine 75 mcg capsule 75 mcg PO DAILY prednisone 20 mg tablet 20 mg PO DAILY 30 Days Qty: 30 3RF pantoprazole 40 mg tablet,delayed release (DR/EC) 40 mg PO DAILY Qty: 30 3RF oxycodone-acetaminophen 5-325 mg tablet 1 tab PO BID PRN (Reason: Pain) 20 Days Qty: 40 0RF cyclobenzaprine 10 mg tablet 1 tablet PO PRN PRN (Reason: Back Pain) lidocaine 4 % adhesive patch,medicated 1 patch topical DAILY PRN (Reason: Pain) calcium carbonate-vitamin D3 600 mg-5 mcg (200 unit) tablet 1 ea PO DAILY Label Comments: TAKE 1 TABLET BY MOUTH TWICE A DAY loratadine 10 mg tablet 10 mg PO DAILY gabapentin [Neurontin] 600 MG tablet 600 mg PO BID PRN (Reason: Pain) lisinopril 20 MG tablet 20 mg PO DAILY aspirin [Ecotrin Low Strength] 81 MG tablet,delayed release (DR/EC) 81 mg PO DAILY atenolol 25 MG tablet 25 mg PO DAILY atorvastatin 40 mg tablet 40 mg PO QHS Label Comments: TAKE 1 TABLET BY MOUTH DAILY AT BEDTIME. FOR CHOLESTEROL potassium chloride [Klor-Con M20] 20 mEq tablet,ER particles/crystals 40 meq PO BID Label Comments: TAKE 2 TABLETS BY MOUTH IN THE MORNING AND 2 TABLETS IN THE EVENING famotidine 20 mg tablet 20 mg PO DAILY PRN (Reason: Stomach Upset) Label Comments: TAKE 1 TAB TWICE DAILY NEEDED. TAKE 1 TAB TWICE DAILY. MAY TAKE AN ADDITIONAL TABLET NEEDED. fluticasone propionate 50 mcg/actuation spray,suspension 2 spray INTRANASAL DAILY PRN (Reason: ALLERGIES) Label Comments: USE 2 SPRAYS IN EACH NOSTRIL ONCE DAILY. RINSE MOUTH AFTER USE. loratadine 10 mg tablet 10 mg PO DAILY Label Comments: TAKE 1 TABLET BY MOUTH EVERY DAY Florajen Acidophilus 20 billion cell Capsule 10 mg PO DAILY multivitamin with folic acid [Therems Multivitamin] 400 mcg tablet 1 tab PO DAILY Label Comments: TAKE 1 TABLET BY MOUTH EVERY DAY Firvanq 25 mg/mL Recon Soln 125 mg PO Q6 7 Days Qty: 140 0RF ondansetron 4 mg tablet,disintegrating 4 mg PO Q8H PRN PRN (Reason: Nausea) Qty: 10 0RF dicyclomine 20 mg tablet 20 mg PO BID PRN (Reason: abdominal discomfort) Qty: 60 2RF Primary Care Provider: Jessica Buenrostro Referrals: Jessica Buenrostro MD [Primary Care Provider] - [facility] appointment Arthur Cervantes DO [Med Staff - Active Staff] - Keep Carlos appointment Disposition Disposition: Home, Self Care
[2023-01-20 23:12] VITALS: BP 166/70; PULSE 56; RESP 20; O2SAT 99
[2023-01-20] MEDS: HYDROmorphone 1 MG/ML Syringe 0.5 MG IV (23:52)
== END 2023-01-20 23:58 | disposition home or self-care (01) ==
PROVIDERS: Emergency Provider Emergency Medicine; PCP Internal Medicine; Visit Provider Emergency Medicine
DX: K92.9 Disease of digestive system, unspecified (principal); R10.84 Generalized abdominal pain; Z90.49 Acquired absence of other specified parts of digestive tract; Z87.891 Personal history of nicotine dependence
CPT/HCPCS: 74177; 80053; 81001; 83690; 85025; 96361; 96374; 96375; 99283; J7030; Q9967; A4216; J2405

== ENCOUNTER → 2023-01-21 | Outpatient (CLI) | payer MEDICARE, MEDICAID, SELFPAY ==
[2023-01-21 17:13] LABS: Hemoglobin A1c 6.1 % (3.8-5.6)
[2023-01-21 17:50] LABS: Thyroid Stim Hormone (TSH) 0.28 uIU/mL (0.358-3.74); Vitamin B12 503 pg/mL (211-911); Vitamin D,25 Hydroxy 37.5 ng/mL
== END | disposition home or self-care (01) ==
LOC: BIMLAB 16:16
PROVIDERS: PCP Internal Medicine; Referring Provider Internal Medicine; Visit Provider Internal Medicine
DX: R73.03 Prediabetes (principal); E07.9 Disorder of thyroid, unspecified; M85.80 Other specified disorders of bone density and structure, unspecified site
CPT/HCPCS: 36415; 82306; 82607; 83036; 84443

== ENCOUNTER → 2023-01-23 | Outpatient (CLI) | payer MEDICARE, MEDICAID, SELFPAY | END | disposition home or self-care (01) | LOC: LABSPEC 15:15 | PROVIDERS: PCP Internal Medicine; Referring Provider Physician Assistant; Visit Provider Physician Assistant | DX: N39.0 Urinary tract infection, site not specified (principal); R30.0 Dysuria | CPT/HCPCS: 87086; 87088 ==

== ENCOUNTER → 2023-01-28 | Outpatient (CLI) | payer MEDICARE, MEDICAID, SELFPAY ==
--- NOTE | 2023-01-28 07:51 | CDU_ITS ---
Reason For Study: CAROTID BRUITS Rt. Velocities/BP Lt. Velocities/BP Prox CCA 59.4/10.3 cm/sec. Prox CCA 98.1/19.5 cm/sec. Mid CCA 65.1/15.0 cm/sec. Mid CCA 94.4/22.0 cm/sec. Dist CCA 58.5/12.2 cm/sec. Dist CCA 45.3/14.6 cm/sec. Prox ICA 44.3/9.4 cm/sec. Prox ICA 76.5/14.4 cm/sec. Mid ICA 44.3/9.4 cm/sec. Mid ICA 131.3/29.0 cm/sec. Dist ICA 98.6/30.5 cm/sec. Dist ICA 83.4/25.2 cm/sec. Rt. ICA/CCA = 98.6/65.1=1.5. Lt. ICA/CCA = 131.3/94.4=1.4. Prox ECA 67.9/10.3 cm/sec. Prox ECA 87.1/9.7 cm/sec. Rt. Vert. 47.4/14.4 cm/sec. Lt. Vert. 36.5/7.9 cm/sec. Right Extracranial There is intimal thickening but no significant atherosclerotic plaque noted in the right common carotid artery. There is heterogeneous, irregular atherosclerotic plaque noted in the right internal carotid artery. There is intimal thickening but no significant atherosclerotic plaque noted in the right external carotid artery. Antegrade flow is noted in the right vertebral artery. Left Extracranial There is homogeneous, smooth atherosclerotic plaque noted in the left common carotid artery. There is intimal thickening but no significant atherosclerotic plaque noted in the left internal carotid artery. The tortuous nature of the left internal carotid artery may result in flow velocities overestimating the degree of stenosis. There is no significant atherosclerotic plaque noted in the left external carotid artery. Procedure Carotid Duplex 11390. This is a Carotid Duplex examination using B-mode, color flow and specral Doppler. The study was technically difficult. Exam performed in department. VL/Carotid Duplex Ultrasound Interpretation Summary Mild (<50%) stenosis right extracranial internal carotid. Normal left extracranial internal carotid. Patent and antegrade vertebrals bilaterally. Ordering Physician: Jessica Buenrostro Referring Physician: Jessica Buenrostro Performed By: Krystyna Carlisle, MILLIE, RVT
== END | disposition home or self-care (01) ==
LOC: CVS 07:43
PROVIDERS: PCP Internal Medicine; Referring Provider Internal Medicine; Visit Provider Internal Medicine
DX: R09.89 Other specified symptoms and signs involving the circulatory and respiratory systems (principal); I65.29 Occlusion and stenosis of unspecified carotid artery
CPT/HCPCS: 93880

== ENCOUNTER 2023-02-03 17:44 | Emergency (ER) | payer MEDICARE, MEDICAID, SELFPAY ==
[2023-02-03 17:46] VITALS: BP 184/86; PULSE 76; RESP 16; TEMP 36.2; O2SAT 95
[2023-02-03 17:57] VITALS: BP 212/87; PULSE 69; RESP 13; O2SAT 96; O2SAT 97
[2023-02-03 18:24] LABS: Absolute Lymphocyte Count 2.27 X10^3/uL (0.83-4.51); Absolute Neutrophil Count 9.6 X10^3/uL (2.0-7.7); Basophil# 0.01 X10^3/uL; Basophil% 0.1 % (0-1); Hematocrit 42.9 % (37-47); Hemoglobin 14.7 g/dL (12.0-15.0); Lymphocyte # 2.27 X10^3/ul (0.83-4.51); Lymphocyte % 18.4 % (19-41); Mean Corp Hgb Conc 34.3 g/dL (32-36); Mean Corpuscular Hgb 31.7 pg (27.0-32.0); Mean Corpuscular Volume 92.5 fL (81-99); Mean Platelet Vol. 9.2 fl (6.2-12.0); Monocyte# 0.36 X10^3/uL; Monocyte% 2.9 % (0-10); NRBC Flagged by Analyzer 0 % (0-5); Neutrophil # 9.62 X10^3/uL (2.7-7.7); Neutrophil % 78.1 % (47-70); Platelet Count 286 K/mm3 (150-450); RBC Distribution Width CV 12.2 % (11.6-14.6); RBC Distribution Width SD 41.8 fl (35.1-43.9); Red Blood Count 4.64 M/mm3 (4.2-5.4); White Blood Count 12.3 K/mm3 (4.4-11.0)
--- NOTE | 2023-02-03 18:35 | RAD_ITS ---
EXAM: XR CHEST, 1 VIEW CLINICAL INDICATION: chest pain TECHNIQUE: Frontal view of the chest. This report was created using [employer] report generation technology. COMPARISON: 12.30.22 FINDINGS: LUNGS AND PLEURAL SPACES: Unremarkable. No consolidation or edema. No pneumothorax. No effusion. HEART: Unremarkable. Cardiac silhouette not enlarged. MEDIASTINUM: Central airways and mediastinal contour are unremarkable. BONES/JOINTS: Unremarkable. SOFT TISSUES: Unremarkable. RAD/Chest 1 View (Portable) IMPRESSION: No radiographic evidence of acute cardiopulmonary disease. Electronically Signed: Nelson Porter MD at 18:43 EDT ,
[2023-02-03 18:45] VITALS: BP 190/81; PULSE 65; RESP 14; O2SAT 92
[2023-02-03 18:48] LABS: Anion Gap 6 (5-15); BUN 13 mg/dL (7-18); BUN/Creat Ratio 14.1 RATIO (10-20); Calcium,Total 9.9 mg/dL (8.5-10.1); Chloride 108 mmol/L (98-107); Creatinine, Serum 0.92 mg/dL (0.55-1.02); EST Glomerular Filtration Rate 65 mL/min (>60); Est Glom Filt Rate - Afr Amer 79 mL/min (>60); Glucose 213 mg/dL (74-106); Potassium 3.8 mmol/L (3.5-5.1); Sodium Level 140 mmol/L (136-145); Troponin-I HS (w/2H Reflex) 9 pg/mL (3.0-54.0)
[2023-02-03 19:05] VITALS: BP 145/67; PULSE 70; RESP 12; O2SAT 97; BMI 32.1
[2023-02-03 20:16] VITALS: BP 151/72; O2SAT 95
[2023-02-03] MEDS: Ondansetron 4 MG/2 ML Vial IV (20:20)
[2023-02-03] MEDS: HYDROmorphone 0.5 MG/0.5 ML SYRINGE IV (20:21)
[2023-02-03 21:01] VITALS: BP 169/70; O2SAT 97
--- NOTE | 2023-02-03 23:12 | ED.VIS.CHEST ---
HPI History of Present Illness Chief Complaint: Chest Pain Narrative Narrative: 62-year-old female presenting with upper back pain. She states that she has had this in between her shoulder blades in on and off for couple of days. She reports a recent history of C. difficile and history of Crohn's disease. She states that she has been recovering at home and not very active. She has been laying around a lot. confirms this. She does not know if she is laid wrong or not. She does follow with Dr. Friend he sees her for GI. She is prepping today because he has a pill endoscopy scheduled for tomorrow. Because of the upper back pain she called her primary care physician who recommend she come in for a cardiac work-up. Patient denies any anterior chest pain or shortness of breath. No cardiac history that she knows of. She states he had a clean cardiac catheterization 5 years ago [facility] Medical History Allergies Back problem Bone fracture Clostridioides difficile infection Crohns disease Depression Diverticulitis Esophageal reflux Gallstones H/O emotional problems Hematuria Hx: UTI (urinary tract infection) Hypothyroidism Internal hemorrhoids Liver lesion Lumbago Neuropathy Osteopenia Pneumonia PTSD (post-traumatic stress disorder) Sleep apnea Thyroid disease Urinary frequency Home Medications gabapentin 600 mg tablet (Neurontin) 600 mg PO BID PRN Pain 12/21/13 [History Last Taken 12/27/22] lisinopril 20 mg tablet 20 mg PO DAILY 12/21/13 [History Last Taken 12/28/22] atenolol 25 mg tablet 25 mg PO DAILY 11/24/18 [History Last Taken 12/27/22] levothyroxine 75 mcg capsule 75 mcg PO DAILY 11/11/22 [History Last Taken 12/28/22] Lactobacillus acidophilus 20 billion cell capsule (Florajen Acidophilus) 10 mg PO DAILY . 12/28/22 [History Last Taken 12/27/22] atorvastatin 40 mg tablet 40 mg PO QHS CHOLESTEROL 12/28/22 [History Last Taken 12/27/22] fluticasone propionate 50 mcg/actuation nasal spray,suspension 2 spray intranasal DAILY PRN ALLERGIES 12/28/22 [History Last Taken 1 Week Ago ~12/21/22] multivitamin with folic acid 400 mcg tablet ([facility] Multivitamin) 1 tab PO DAILY SUPPLEMENT 12/28/22 [History Last Taken 12/27/22] potassium chloride 20 mEq tablet,extended release(part/cryst) (Klor-Con M) 40 meq PO BID POTASSIUM 12/28/22 [History Last Taken 12/27/22] ondansetron 4 mg disintegrating tablet 4 mg PO Q8H PRN PRN Nausea #10 tabs 01/10/23 [Rx Last Taken Unknown] calcium carbonate 600 mg-vitamin D3 5 mcg (200 unit) tablet 1 ea PO DAILY 01/13/23 [History Last Taken Unknown] cyclobenzaprine 10 mg tablet 1 tablet PO PRN PRN Back Pain 01/13/23 [History Last Taken Unknown] lidocaine 4 % topical patch 1 patch topical DAILY PRN Pain 01/13/23 [History Last Taken Unknown] loratadine 10 mg tablet 10 mg PO DAILY 01/13/23 [History Last Taken Unknown] oxycodone-acetaminophen 5 mg-325 mg tablet 1 tab PO BID PRN Pain 20 days #40 TABLETS 01/17/23 [Rx Last Taken Unknown] pantoprazole 40 mg tablet,delayed release 40 mg PO DAILY #30 tabs 01/17/23 [Rx Last Taken Unknown] prednisone 20 mg tablet 20 mg PO DAILY 30 days #30 tabs 01/17/23 [Rx Last Taken Unknown] dicyclomine 20 mg tablet 20 mg PO BID PRN abdominal discomfort #60 tabs 01/20/23 [Rx Last Taken Unknown] Super Collagen & Vitamin C 1 tab PO TID 01/21/23 [History Last Taken Unknown] spironolactone 25 mg tablet 25 mg PO DAILY PRN supplement 01/21/23 [History Last Taken Unknown] aspirin 81 mg tablet,delayed release (Ecotrin Low Strength) 81 mg PO DAILY #90 tabs 01/30/23 [Rx Last Taken Unknown] Allergy/AdvReac Type Severity Reaction Status Date / Time Penicillins [PCN] Allergy Unknown Verified 01/21/23 14:50 Tetracyclines AdvReac Nausea Verified 01/21/23 14:50 Family History Grandmother Bowel disease Myocardial infarction Hypertension Aunt Bowel disease Ovarian cancer Mother Diabetes High cholesterol Father Diabetes Heart disease Thyroid disorder Hypertension High cholesterol Myocardial infarction Grandmother Cancer pancreatic Other Anemia Colon cancer Surgical History H/O wrist surgery History of cholecystectomy History of hysterectomy Hx of section Previous back surgery [place] teeth extracted Social History household members: significant other current occupational status: unemployed current occupation: multiple jobs Smoking Status: Former smoker quit date: 10/27/21 pack-years: 3 alcohol intake: former substance use type: former substance user Date of last use: marijuana 09/2022 what type of physical activity do you participate in: none seatbelt use: always do you feel safe at home: Yes ROS ROS ED Constitutional Constitutional ED: Denies chills or fever(s) Eyes Eyes: Denies blurry vision or change in vision ENT ENT ED: Denies rhinorrhea or sore throat Cardiovascular Cardiovascular: Reports as per HPI Respiratory/Chest Respiratory/Chest: Denies cough or dyspnea Gastrointestinal Gastrointestinal: Reports nausea; Denies vomiting Genitourinary Genitourinary ED: Denies dysuria Musculoskeletal Musculoskeletal: Reports back pain Integumentary Denies abscess or Abrasions Neurologic Neurologic: Denies headache(s) or paresthesias EXAM Physical Exam Const Vital Signs: 02/03/23 17:46 02/03/23 17:57 02/03/23 17:57 Temperature 97.2 F L Temperature Source Temporal Pulse Rate 76 69 Respiratory Rate 16 13 Blood Pressure 184/86 H 212/87 H Blood Pressure Mean 118 128 Pulse Ox 95 97 96 Oxygen Delivery Method Room Air Room Air Room Air 02/03/23 18:45 02/03/23 19:05 02/03/23 20:16 Temperature Temperature Source Pulse Rate 65 70 Respiratory Rate 14 12 Blood Pressure 190/81 H 145/67 H 151/72 H Blood Pressure Mean 117 93 93 Pulse Ox 92 97 95 Oxygen Delivery Method Room Air Room Air 02/03/23 21:01 Temperature Temperature Source Pulse Rate Respiratory Rate Blood Pressure 169/70 H Blood Pressure Mean 97 Pulse Ox 97 Oxygen Delivery Method Positive well nourished General Appearance ED: NAD HEENT normocephalic and atraumatic Eyes PERRL and EOMs intact bilaterally Resp normal respiratory effort and clear to auscultation bilaterally Auscultation: Negative for rales, rhonchi or wheezes Cardio regular rate and regular rhythm GI soft to palpation and non-distended GI Narrative: No rebound or guarding Back/Spine Back/Spine Narrative: Tenderness to palpation on back in the thoracic region of T3-T4. No midline spinal tenderness or deformity. There is tenderness in the bilateral trapezius. Extremity normal to inspection Neuro CN's II-XII intact bilaterally Psych mental status grossly normal Skin no rashes or lesions noted MDM MDM MDM Narrative Medical decision making narrative: Patient presenting with upper back pain I do not believe this is cardiac but this is the patient's concern and she was referred to the ER. I will musculoskeletal. I did obtain an EKG which shows a sinus rhythm with a ventricular to 68 bpm with first-degree AV block. Chest x-ray on my interpretation shows no acute cardiopulmonary process. Radiologist services agrees. CBC shows normal white blood cell count of 12.3. Hemoglobin hematocrit stable. Platelets are normal. Renal function electrolytes within normal limits. Glucose elevated at 213 without anion gap. High-sensitivity troponin is 9. Normally the patient needs a delta troponin. She is PERC negative. I discussed her with Dr. Cervantes who did not want a change in medications. He is to follow-up with him tomorrow for pill endoscopy. Impression: 1. Thoracic strain Lab Data Labs: Laboratory Results - last 24 hr 02/03/23 02/03/23 18:17 18:17 WBC 12.3 H RBC 4.64 Hgb 14.7 Hct 42.9 MCV 92.5 MCH 31.7 MCHC 34.3 RDW Std Deviation 41.8 RDW Coeff of Jessica 12.2 Plt Count 286 MPV 9.2 Immature Gran % (Auto) 0.500 Neut % (Auto) 78.1 H Lymph % (Auto) 18.4 L [place] % (Auto) 2.9 Eos % (Auto) 0.0 Baso % (Auto) 0.1 Absolute Neuts (auto) 9.6 H Absolute Lymphs (auto) 2.27 Nucleated RBC % 0 Sodium 140 Potassium 3.8 Chloride 108 H Carbon Dioxide 26.0 Anion Gap 6 BUN 13 Creatinine 0.92 Est GFR (MDRD) Af Amer 79 Est GFR (MDRD) Non-Af 65 BUN/Creatinine Ratio 14.1 Glucose 213 H Calcium 9.9 Troponin I High Sens 9 Radiography Diagnostic Testing: Clinical Impression(s) from Imaging Studies Chest X-Ray 02/03/23 18:35 IMPRESSION: No radiographic evidence of acute cardiopulmonary disease. Electronically Signed: Nelson Porter MD at 18:43 EDT , Discharge Plan Triage Chief Complaint: Chest Pain ED Provider: Masood Ruby Dx/Rx/DC Orders Instructions: ED Chest Pain, Noncardiac Prescriptions: No Action levothyroxine 75 mcg capsule 75 mcg PO DAILY spironolactone 25 mg tablet 25 mg PO DAILY PRN (Reason: supplement) prednisone 20 mg tablet 20 mg PO DAILY 30 Days Qty: 30 3RF pantoprazole 40 mg tablet,delayed release (DR/EC) 40 mg PO DAILY Qty: 30 3RF oxycodone-acetaminophen 5-325 mg tablet 1 tab PO BID PRN (Reason: Pain) 20 Days Qty: 40 0RF Super Collagen & Vitamin C 1 tab PO TID cyclobenzaprine 10 mg tablet 1 tablet PO PRN PRN (Reason: Back Pain) lidocaine 4 % adhesive patch,medicated 1 patch topical DAILY PRN (Reason: Pain) calcium carbonate-vitamin D3 600 mg-5 mcg (200 unit) tablet 1 ea PO DAILY Label Comments: TAKE 1 TABLET BY MOUTH TWICE A DAY loratadine 10 mg tablet 10 mg PO DAILY gabapentin [Neurontin] 600 MG tablet 600 mg PO BID PRN (Reason: Pain) lisinopril 20 MG tablet 20 mg PO DAILY atenolol 25 MG tablet 25 mg PO DAILY atorvastatin 40 mg tablet 40 mg PO QHS Label Comments: TAKE 1 TABLET BY MOUTH DAILY AT BEDTIME. FOR CHOLESTEROL potassium chloride [Klor-Con M20] 20 mEq tablet,ER particles/crystals 40 meq PO BID Label Comments: TAKE 2 TABLETS BY MOUTH IN THE MORNING AND 2 TABLETS IN THE EVENING fluticasone propionate 50 mcg/actuation spray,suspension 2 spray INTRANASAL DAILY PRN (Reason: ALLERGIES) Label Comments: USE 2 SPRAYS IN EACH NOSTRIL ONCE DAILY. RINSE MOUTH AFTER USE. Florajen Acidophilus 20 billion cell Capsule 10 mg PO DAILY multivitamin with folic acid [Therems Multivitamin] 400 mcg tablet 1 tab PO DAILY Label Comments: TAKE 1 TABLET BY MOUTH EVERY DAY ondansetron 4 mg tablet,disintegrating 4 mg PO Q8H PRN PRN (Reason: Nausea) Qty: 10 0RF dicyclomine 20 mg tablet 20 mg PO BID PRN (Reason: abdominal discomfort) Qty: 60 2RF aspirin [Ecotrin Low Strength] 81 mg tablet,delayed release (DR/EC) 81 mg PO DAILY Qty: 90 1RF Primary Care Provider: Jessica Buenrostro Referrals: Jessica Buenrostro MD [Primary Care Provider] - Disposition Disposition: Home, Self Care Discharge Date/Time: 02/03/23 21:39
== END 2023-02-03 21:39 | disposition home or self-care (01) ==
PROVIDERS: Emergency Provider Student in an Organized Health Care Education/Training Program; PCP Internal Medicine; Visit Provider Student in an Organized Health Care Education/Training Program
DX: S29.019A Strain of muscle and tendon of unspecified wall of thorax, initial encounter (principal); F43.10 Post-traumatic stress disorder, unspecified; G47.30 Sleep apnea, unspecified; E03.9 Hypothyroidism, unspecified; G62.9 Polyneuropathy, unspecified; Z12.31 Encounter for screening mammogram for malignant neoplasm of breast; Z79.82 Long term (current) use of aspirin; Z79.899 Other long term (current) drug therapy; Z87.891 Personal history of nicotine dependence; X58.XXXA Exposure to other specified factors, initial encounter
CPT/HCPCS: 71045; 77063; 77067; 80048; 84484; 85025; 93005; 96374; 96375; 99284; A4216; J2405

== ENCOUNTER → 2023-02-03 | Outpatient (CLI) | payer MEDICARE, MEDICAID, SELFPAY ==
--- NOTE | 2023-02-03 07:42 | BI_ITS ---
MAMMOGRAPHY - BILATERAL SCREENING 3-D TOMOSYNTHESIS REASON FOR EXAM: Female, 62 years old. Routine screening PERTINENT HISTORY: Grandmother with breast cancer.. TECHNIQUE: 2-D mammograms and 3-D Tomosynthesis of the breast (s) were performed. CAD was performed. COMPARISON: 01/06/2020 FINDINGS: The breast composition is almost entirely fat. Scattered benign calcifications are seen. No dense spiculated masses or suspicious microcalcifications are identified. No architectural distortion is identified. There is no skin thickening or retraction. There has been no significant change since the prior study. BI/SCRN MAMM (CAD)W/KRISTAL BILAT IMPRESSION: No mammographic signs of malignancy. Routine yearly mammograms recommended. ASSESSMENT CATEGORY: BIRADS Category 1: Negative. A letter regarding these results will be sent to the patient by the facility within 30 days. FOLLOW UP RECOMMENDATION: Yearly follow up mammogram recommended. (A) Approximately 10% of breast cancers are not detected by mammography. A normal mammogram should not delay biopsy of a clinically suspicious abnormality. Electronically Signed: Isaiah Galicia MD at 8:43 EDT ,
== END | disposition home or self-care (01) ==
LOC: OPBI 07:40
PROVIDERS: PCP Internal Medicine; Visit Provider Internal Medicine
DX: Z12.31 Encounter for screening mammogram for malignant neoplasm of breast (principal)
CPT/HCPCS: 77063; 77067

== ENCOUNTER 2023-02-11 05:37 | Emergency (ER) | payer MEDICARE, MEDICAID, SELFPAY ==
[2023-02-11 05:38] VITALS: BP 163/73; PULSE 89; RESP 16; TEMP 36.4; O2SAT 96; BMI 31.4
[2023-02-11 05:41] VITALS: BP 160/73; PULSE 84; RESP 16; TEMP 36.4; O2SAT 97
[2023-02-11 06:23] LABS: Absolute Lymphocyte Count 6.48 X10^3/uL (0.83-4.51); Absolute Neutrophil Count 7.7 X10^3/uL (2.0-7.7); Basophil# 0.04 X10^3/uL; Basophil% 0.3 % (0-1); Eosinophils% 0.7 % (0-5); Hemoglobin 14.7 g/dL (12.0-15.0); Lymphocyte # 6.48 X10^3/ul (0.83-4.51); Lymphocyte % 42.2 % (19-41); Mean Corp Hgb Conc 34.2 g/dL (32-36); Mean Corpuscular Volume 93.5 fL (81-99); Mean Platelet Vol. 9.5 fl (6.2-12.0); Monocyte% 5.9 % (0-10); NRBC Flagged by Analyzer 0 % (0-5); Neutrophil # 7.74 X10^3/uL (2.7-7.7); Neutrophil % 50.2 % (47-70); POSITIVE DIFFERENTIAL YES; Platelet Count 289 K/mm3 (150-450); RBC Distribution Width CV 12.3 % (11.6-14.6); RBC Distribution Width SD 42.3 fl (35.1-43.9); White Blood Count 15.4 K/mm3 (4.4-11.0)
[2023-02-11 06:25] LABS: Differential Indicated SCAN CRITERIA MET
[2023-02-11 06:33] LABS: Color, Urine Yellow (Yellow); Glucose, Dipstick Normal (Normal); Ketone-Dipstick 5 mg/dl (Negative); Leukocyte Esterase-Dipstick 500 /ul (Negative); Nitrite-Dipstick Negative (Negative); Occult Blood-Urine 50 /ul (Negative); Protein-Dipstick 30 mg/dl (Negative); Specific Gravity, Urine 1.025 (1.002-1.030); Urine Bilirubin Dipstick 1 mg/dL (Negative); Urine Clarity Clear (Clear); Urine Urobilinogen 1 mg/dl (Normal)
[2023-02-11 06:36] LABS: Anion Gap 7 (5-15); BUN 17 mg/dL (7-18); Calcium,Total 9.5 mg/dL (8.5-10.1); Chloride 104 mmol/L (98-107); Creatinine, Serum 0.77 mg/dL (0.55-1.02); EST Glomerular Filtration Rate 80 mL/min (>60); Est Glom Filt Rate - Afr Amer 97 mL/min (>60); Estimated Creatinine Clearance 53.72 ml/min; Glucose 100 mg/dL (74-106); Potassium 3.3 mmol/L (3.5-5.1); Sodium Level 136 mmol/L (136-145)
[2023-02-11 06:42] LABS: AST(SGOT) 18 U/L (15-37); Alanine Aminotransfer ALT/SGPT 48 U/L (13-56); Albumin, Serum 3.8 g/dL (3.2-5.0); Alkaline Phosphatase 62 U/L (45-117); Bilirubin, Direct 0.15 mg/dL (0.00-0.30); Globulin 3.7 g/dL (2.2-4.2); Protein, Total 7.5 g/dL (6.4-8.2)
--- NOTE | 2023-02-11 06:42 | EX.ED.DYSGE1 ---
HPI History of Present Illness Chief Complaint: General Illness Narrative Narrative: Patient is a 62-year-old female with past medical history of thyroid disease currently on levothyroxine hypertension hyperlipidemia and previous C. difficile infection for which she states she was placed on vancomycin and steroids. She has been in the ER multiple times since December with multiple complaints. She states that she is concerned she may be in liver failure because she feels like her palms are turning red. She also states that she is concerned because she urinated at 2 AM today and it was dark in color. She has had abdominal CAT scans as well as an abdominal MRI and multiple laboratory studies in the past. She is also following Dr. Cervantes of the local GI physician. Patient states that she has been on unit googling possible causes of her symptoms and she is concerned that she is in liver failure and therefore comes in for evaluation [facility] Medical History Allergies Back problem Bone fracture Clostridioides difficile infection Crohns disease Depression Diverticulitis Esophageal reflux Gallstones H/O emotional problems Hematuria Hx: UTI (urinary tract infection) Hypothyroidism Internal hemorrhoids Liver lesion Lumbago Neuropathy Osteopenia Pneumonia PTSD (post-traumatic stress disorder) Sleep apnea Thyroid disease Urinary frequency Home Medications gabapentin 600 mg tablet (Neurontin) 600 mg PO BID PRN Pain 12/21/13 [History Last Taken 12/27/22] lisinopril 20 mg tablet 20 mg PO DAILY 12/21/13 [History Last Taken 12/28/22] atenolol 25 mg tablet 25 mg PO DAILY 11/24/18 [History Last Taken 12/27/22] levothyroxine 75 mcg capsule 75 mcg PO DAILY 11/11/22 [History Last Taken 12/28/22] Lactobacillus acidophilus 20 billion cell capsule (Florajen Acidophilus) 10 mg PO DAILY . 12/28/22 [History Last Taken 12/27/22] atorvastatin 40 mg tablet 40 mg PO QHS CHOLESTEROL 12/28/22 [History Last Taken 12/27/22] fluticasone propionate 50 mcg/actuation nasal spray,suspension 2 spray intranasal DAILY PRN ALLERGIES 12/28/22 [History Last Taken 1 Week Ago ~12/21/22] multivitamin with folic acid 400 mcg tablet ([facility] Multivitamin) 1 tab PO DAILY SUPPLEMENT 12/28/22 [History Last Taken 12/27/22] potassium chloride 20 mEq tablet,extended release(part/cryst) (Klor-Con M) 40 meq PO BID POTASSIUM 12/28/22 [History Last Taken 12/27/22] ondansetron 4 mg disintegrating tablet 4 mg PO Q8H PRN PRN Nausea #10 tabs 01/10/23 [Rx Last Taken Unknown] cyclobenzaprine 10 mg tablet 1 tablet PO PRN PRN Back Pain 01/13/23 [History Last Taken Unknown] lidocaine 4 % topical patch 1 patch topical DAILY PRN Pain 01/13/23 [History Last Taken Unknown] loratadine 10 mg tablet 10 mg PO DAILY 01/13/23 [History Last Taken Unknown] pantoprazole 40 mg tablet,delayed release 40 mg PO DAILY #30 tabs 01/17/23 [Rx Last Taken Unknown] prednisone 20 mg tablet 20 mg PO DAILY 30 days #30 tabs 01/17/23 [Rx Last Taken Unknown] dicyclomine 20 mg tablet 20 mg PO BID PRN abdominal discomfort #60 tabs 01/20/23 [Rx Last Taken Unknown] Super Collagen & Vitamin C 1 tab PO TID 01/21/23 [History Last Taken Unknown] spironolactone 25 mg tablet 25 mg PO DAILY PRN supplement 01/21/23 [History Last Taken Unknown] aspirin 81 mg tablet,delayed release (Ecotrin Low Strength) 81 mg PO DAILY #90 tabs 01/30/23 [Rx Last Taken Unknown] calcium carbonate 600 mg-vitamin D3 5 mcg (200 unit) tablet 1 tab PO DAILY #90 tabs 02/04/23 [Rx Last Taken Unknown] ondansetron 4 mg disintegrating tablet 4 mg PO Q6H #90 tabs 02/04/23 [Rx Last Taken Unknown] Allergy/AdvReac Type Severity Reaction Status Date / Time Penicillins [PCN] Allergy Unknown Verified 02/11/23 05:42 Tetracyclines AdvReac Nausea Verified 02/11/23 05:42 Family History Grandmother Bowel disease Myocardial infarction Hypertension Aunt Bowel disease Ovarian cancer Mother Diabetes High cholesterol Father Diabetes Heart disease Thyroid disorder Hypertension High cholesterol Myocardial infarction Grandmother Cancer pancreatic Other Anemia Colon cancer Surgical History H/O wrist surgery History of cholecystectomy History of hysterectomy Hx of section Previous back surgery [place] teeth extracted Social History household members: significant other current occupational status: unemployed current occupation: multiple jobs Smoking Status: Former smoker quit date: 10/27/21 pack-years: 3 alcohol intake: former substance use type: former substance user Date of last use: marijuana 09/2022 what type of physical activity do you participate in: none seatbelt use: always do you feel safe at home: Yes ROS ROS ED Constitutional Constitutional ED: Denies chills or fever(s) ENT ENT ED: Denies sore throat Cardiovascular Cardiovascular: Denies chest pain Respiratory/Chest Respiratory/Chest: Denies cough or dyspnea Gastrointestinal Gastrointestinal: Reports nausea; Denies abdominal pain, diarrhea or vomiting Genitourinary Genitourinary ED: Denies dysuria Musculoskeletal Musculoskeletal: Denies myalgias Integumentary Denies rash Neurologic Neurologic: Denies headache(s) Psychiatric Psychiatric: Reports anxiety Hematologic/Lymphatic Hematologic/Lymphatic: Denies easy bleeding or easy bruising EXAM Physical Exam Const Vital Signs: 02/11/23 05:38 02/11/23 05:41 02/11/23 05:43 Temperature 97.6 F L 97.6 F L Temperature Source Oral Oral Pulse Rate 89 84 Respiratory Rate 16 16 Respiratory Effort Normal Non-Labored Respiratory Pattern Normal Blood Pressure 163/73 H 160/73 H Blood Pressure Mean 103 102 Pulse Ox 96 97 Oxygen Delivery Method Room Air Room Air Positive well nourished and well developed General Appearance ED: well developed HEENT Reports dry mucous membranes HEENT Narrative: No spontaneous tongue/cheek or nasal bleeding Mouth ED: Yes dry mucous membranes Mouth: dry mucous membranes Eyes PERRL and EOMs intact bilaterally General Eye ED: Negative for scleral icterus Neck supple Resp normal respiratory effort and clear to auscultation bilaterally Cardio regular rate and regular rhythm Rate: other Other Details: Radial pulses are plus 2 out of 4 bilaterally are equal and symmetric GI normal to inspection, nondistended, normoactive bowel sounds, non-tender, non-distended and no masses GI Narrative: No voluntary guarding or rigidity no pulsatile mass or fluid wave. Auscultation: normoactive bowel sounds Palpation: soft Extremity normal to inspection Neuro oriented x3 and CN's II-XII intact bilaterally Sensorium / Orientation: alert Psych Psych Narrative: Patient has a nervous/anxious affect Skin no rashes or lesions noted General Skin Exam: Negative for jaundice MDM MDM MDM Narrative Medical decision making narrative: Patient presented to the ER hypertensive but does have a past medical history of this and otherwise had stable vital. She has undergone multiple abdominal CTs as well as an MRI. This showed that the liver is structurally normal without any lesions and that the intra and extrahepatic ductal dilation is stable and chronic in nature. As patient had concern for liver failure I did elect to check basic laboratory studies with liver enzymes. Patient's liver enzymes are normal. As she is on levothyroxine there was concern that her dosage may have been off based on her recent infection and need for steroid use but TSH is normal. She reported chronic fatigue after C. difficile infection and there is a chance patient's developed chronic fatigue syndrome from the inflammatory process but that is not ER diagnosis. At this time patient's vitals are stable abdomen is soft and nonsurgical she does not have signs of liver failure and therefore is otherwise safe for discharge and outpatient follow-up. History & Record Review Discussion w/independent historian: Patient and Significant other Lab Data Attestation: I reviewed the patient's lab results. Labs: Laboratory Results - last 24 hr 02/11/23 02/11/23 02/11/23 05:52 05:52 05:52 WBC 15.4 H RBC 4.60 Hgb 14.7 Hct 43.0 MCV 93.5 MCH 32.0 MCHC 34.2 RDW Std Deviation 42.3 RDW Coeff of Jessica 12.3 Plt Count 289 MPV 9.5 Immature Gran % (Auto) 0.700 Neut % (Auto) 50.2 Lymph % (Auto) 42.2 H [place] % (Auto) 5.9 Eos % (Auto) 0.7 Baso % (Auto) 0.3 Absolute Neuts (auto) 7.7 Absolute Lymphs (auto) 6.48 H Nucleated RBC % 0 Sodium 136 Potassium 3.3 L Chloride 104 Carbon Dioxide 25.0 Anion Gap 7 BUN 17 Creatinine 0.77 Estim Creat Clear Calc 53.72 Est GFR (MDRD) Af Amer 97 Est GFR (MDRD) Non-Af 80 BUN/Creatinine Ratio 22.0 H Glucose 100 Calcium 9.5 Total Bilirubin 0.40 Direct Bilirubin 0.15 AST 18 ALT 48 Alkaline Phosphatase 62 Total Protein 7.5 Albumin 3.8 Globulin 3.7 TSH Urine Color Urine Clarity Urine pH Ur Specific [place] Urine Protein Urine Glucose (UA) Urine Ketones Urine Occult Blood Urine Nitrite Urine Bilirubin Urine Urobilinogen Ur Leukocyte Esterase Urine RBC Urine WBC Ur Squamous Epith Cells Urine Bacteria Urine Mucus 02/11/23 02/11/23 05:52 06:19 WBC RBC Hgb Hct MCV MCH MCHC RDW Std Deviation RDW Coeff of Jessica Plt Count MPV Immature Gran % (Auto) Neut % (Auto) Lymph % (Auto) [place] % (Auto) Eos % (Auto) Baso % (Auto) Absolute Neuts (auto) Absolute Lymphs (auto) Nucleated RBC % Sodium Potassium Chloride Carbon Dioxide Anion Gap BUN Creatinine Estim Creat Clear Calc Est GFR (MDRD) Af Amer Est GFR (MDRD) Non-Af BUN/Creatinine Ratio Glucose Calcium Total Bilirubin Direct Bilirubin AST ALT Alkaline Phosphatase Total Protein Albumin Globulin TSH 1.56 Urine Color Yellow Urine Clarity Clear Urine pH 5.0 Ur Specific [place] 1.025 Urine Protein 30 H Urine Glucose (UA) Normal Urine Ketones 5 H Urine Occult Blood 50 H Urine Nitrite Negative Urine Bilirubin 1 H Urine Urobilinogen 1 H Ur Leukocyte Esterase 500 H Urine RBC 0-5 SEEN Urine WBC 0-5 SEEN Ur Squamous Epith Cells 0-5 SEEN Urine Bacteria 2+ Urine Mucus 3+ Discharge Plan Triage Chief Complaint: General Illness ED Provider: Casimiro Becerra Dx/Rx/DC Orders Clinical Impression: Essential (primary) hypertension, Thyroid disease, Fatigue Instructions: How the Liver Works Prescriptions: No Action levothyroxine 75 mcg capsule 75 mcg PO DAILY spironolactone 25 mg tablet 25 mg PO DAILY PRN (Reason: supplement) prednisone 20 mg tablet 20 mg PO DAILY 30 Days Qty: 30 3RF pantoprazole 40 mg tablet,delayed release (DR/EC) 40 mg PO DAILY Qty: 30 3RF Super Collagen & Vitamin C 1 tab PO TID cyclobenzaprine 10 mg tablet 1 tablet PO PRN PRN (Reason: Back Pain) lidocaine 4 % adhesive patch,medicated 1 patch topical DAILY PRN (Reason: Pain) loratadine 10 mg tablet 10 mg PO DAILY gabapentin [Neurontin] 600 MG tablet 600 mg PO BID PRN (Reason: Pain) lisinopril 20 MG tablet 20 mg PO DAILY atenolol 25 MG tablet 25 mg PO DAILY atorvastatin 40 mg tablet 40 mg PO QHS Label Comments: TAKE 1 TABLET BY MOUTH DAILY AT BEDTIME. FOR CHOLESTEROL potassium chloride [Klor-Con M20] 20 mEq tablet,ER particles/crystals 40 meq PO BID Label Comments: TAKE 2 TABLETS BY MOUTH IN THE MORNING AND 2 TABLETS IN THE EVENING fluticasone propionate 50 mcg/actuation spray,suspension 2 spray INTRANASAL DAILY PRN (Reason: ALLERGIES) Label Comments: USE 2 SPRAYS IN EACH NOSTRIL ONCE DAILY. RINSE MOUTH AFTER USE. Florajen Acidophilus 20 billion cell Capsule 10 mg PO DAILY multivitamin with folic acid [Therems Multivitamin] 400 mcg tablet 1 tab PO DAILY Label Comments: TAKE 1 TABLET BY MOUTH EVERY DAY ondansetron 4 mg tablet,disintegrating 4 mg PO Q8H PRN PRN (Reason: Nausea) Qty: 10 0RF dicyclomine 20 mg tablet 20 mg PO BID PRN (Reason: abdominal discomfort) Qty: 60 2RF aspirin [Ecotrin Low Strength] 81 mg tablet,delayed release (DR/EC) 81 mg PO DAILY Qty: 90 1RF calcium carbonate-vitamin D3 600 mg-5 mcg (200 unit) tablet 1 tab PO DAILY Qty: 90 1RF ondansetron 4 mg tablet,disintegrating 4 mg PO Q6H Qty: 90 3RF Primary Care Provider: Jessica Buenrostro Referrals: Jessica Buenrostro MD [Primary Care Provider] - Activity Restrictions/Additional Instructions: Your work-up today shows that your liver function is normal. I believe your body is in a state inflammation from the previous C. difficile infection. This could have led to your chronic fatigue please talk to your family doctor about possible rheumatology referral to further assess for other causes of your symptoms. If you have any further concerns please return to the ER for repeat evaluation Disposition Disposition: Home, Self Care
[2023-02-11 06:53] LABS: Bacteria 2+ /hpf (None Seen); Mucous, Urine 3+ /hpf (<or=2+); Red Blood Cells-Urine 0-5 SEEN /hpf (0-5); Squamous Epithelial Cells - UA 0-5 SEEN /hpf (5-10); White Blood Cells 0-5 SEEN /hpf (0-5)
[2023-02-11 07:09] LABS: Thyroid Stim Hormone (TSH) 1.56 uIU/mL (0.358-3.74)
[2023-02-11 07:31] VITALS: BP 146/79; PULSE 82; RESP 16; O2SAT 97
== END 2023-02-11 07:31 | disposition home or self-care (01) ==
PROVIDERS: Emergency Provider Emergency Medicine; PCP Internal Medicine; Visit Provider Emergency Medicine
DX: I10 Essential (primary) hypertension (principal); E07.9 Disorder of thyroid, unspecified; R53.83 Other fatigue; G47.30 Sleep apnea, unspecified; E03.9 Hypothyroidism, unspecified; Z79.82 Long term (current) use of aspirin; Z79.899 Other long term (current) drug therapy; Z87.891 Personal history of nicotine dependence
CPT/HCPCS: 80048; 80076; 81001; 84443; 85025; 99283; A4216

== ENCOUNTER → 2023-02-14 | Outpatient (CLI) | payer MEDICARE, MEDICAID, SELFPAY ==
[2023-02-20 16:09] LABS: Calprotectin, Stool 360 ug/g (0-120); Pancreatic Elastase, Fecal > 500 (>200)
== END | disposition home or self-care (01) ==
PROVIDERS: PCP Internal Medicine; Referring Provider Internal Medicine Gastroenterology; Visit Provider Internal Medicine Gastroenterology
DX: R19.7 Diarrhea, unspecified (principal); K58.9 Irritable bowel syndrome, unspecified
CPT/HCPCS: 82653; 83630; 83993; 87177; 87209; 87329; 87493; 87506

== ENCOUNTER → 2023-02-17 | Outpatient (CLI) | payer MEDICARE, MEDICAID, SELFPAY ==
[2023-02-17 11:44] LABS: Bacteria 0 SEEN /hpf (None Seen); Mucous, Urine 0 SEEN /hpf (<or=2+)
[2023-02-17 12:42] LABS: Rheumatoid Factor < 10.0 IU/mL (<15)
[2023-02-17 15:15] LABS: Color, Urine Yellow (Yellow); Glucose, Dipstick Normal (Normal); Ketone-Dipstick Negative (Negative); Leukocyte Esterase-Dipstick 25 /ul (Negative); Nitrite-Dipstick Negative (Negative); Occult Blood-Urine 50 /ul (Negative); Protein-Dipstick Negative (Negative); Urine Bilirubin Dipstick Negative (Negative); Urine Clarity Sl. Cloudy (Clear); Urine Urobilinogen Normal (Normal)
[2023-02-17 15:35] LABS: Amorphous Sediment 1+ URATE; Red Blood Cells-Urine 0-5 SEEN /hpf (0-5); Squamous Epithelial Cells - UA 0-5 SEEN /hpf (5-10); White Blood Cells 0-5 SEEN /hpf (0-5)
[2023-02-18 12:08] LABS: CCP IgG Antibodies 5 units (0-19)
[2023-02-18 13:08] LABS: ANTINUCLEAR ANTIBODIES DIRECT Negative (Negative)
== END | disposition home or self-care (01) ==
LOC: BIMLAB 11:34
PROVIDERS: PCP Internal Medicine; Visit Provider Internal Medicine
DX: G89.29 Other chronic pain (principal); R10.9 Unspecified abdominal pain
CPT/HCPCS: 36415; 81001; 86038; 86200; 86431; 87086

== ENCOUNTER 2023-03-17 08:44 | Emergency (ER) | payer MEDICARE, MEDICAID, SELFPAY ==
[2023-03-17 08:44] VITALS: BP 140/110; PULSE 98; RESP 18; TEMP 36.6; O2SAT 100; BMI 31.6
[2023-03-17] MEDS: Dicyclomine 20 MG/2 ML Vial IM (09:51)
[2023-03-17] MEDS: 0.9% Normal Saline 1,000 ML 150 ML IV (09:51)
--- NOTE | 2023-03-17 10:00 | RAD_ITS ---
STUDY: X-RAY - ABDOMEN/PELVIS REASON FOR EXAM: Female, 62 years old. Pain. Constipation. TECHNIQUE: Two AP supine views of the abdomen and pelvis. COMPARISON: CT dated 01/20/2023. FINDINGS: The patient is status post cholecystectomy. There is no bowel obstruction. There is a large amount of stool in the colon, consistent with constipation. The visualized osseous structures are within normal limits. RAD/Abdomen Single View IMPRESSION: No bowel obstruction. Constipation. Electronically Signed: Reji Arriola MD at 10:39 EDT ,
[2023-03-17 10:05] LABS: Absolute Lymphocyte Count 7.13 X10^3/uL (0.83-4.51); Absolute Neutrophil Count 9.8 X10^3/uL (2.0-7.7); Basophil# 0.06 X10^3/uL; Basophil% 0.3 % (0-1); Eosinophil# 0.09 X10^3/uL; Eosinophils% 0.5 % (0-5); Hematocrit 43.7 % (37-47); Hemoglobin 15.2 g/dL (12.0-15.0); Lymphocyte # 7.13 X10^3/ul (0.83-4.51); Lymphocyte % 39.2 % (19-41); Mean Corp Hgb Conc 34.8 g/dL (32-36); Mean Platelet Vol. 9.4 fl (6.2-12.0); Monocyte# 0.94 X10^3/uL; Monocyte% 5.2 % (0-10); NRBC Flagged by Analyzer 0 % (0-5); Neutrophil # 9.81 X10^3/uL (2.7-7.7); Neutrophil % 53.9 % (47-70); POSITIVE DIFFERENTIAL YES; POSITIVE MORPHOLOGY YES; Platelet Count 257 K/mm3 (150-450); RBC Distribution Width CV 12.8 % (11.6-14.6); RBC Distribution Width SD 44.8 fl (35.1-43.9); White Blood Count 18.2 K/mm3 (4.4-11.0)
[2023-03-17 10:19] LABS: Differential Indicated SCAN CRITERIA MET
[2023-03-17 10:21] LABS: Anion Gap 11 (5-15); BUN 14 mg/dL (7-18); BUN/Creat Ratio 17.7 RATIO (10-20); Calcium,Total 9.3 mg/dL (8.5-10.1); Chloride 103 mmol/L (98-107); Creatinine, Serum 0.79 mg/dL (0.55-1.02); EST Glomerular Filtration Rate 78 mL/min (>60); Est Glom Filt Rate - Afr Amer 94 mL/min (>60); Estimated Creatinine Clearance 52.36 ml/min; Glucose 106 mg/dL (74-106); Potassium 3.4 mmol/L (3.5-5.1); Sodium Level 140 mmol/L (136-145)
[2023-03-17 10:40] LABS: Differential Comment SCANNED; Reactive Lymphocyte 1+
[2023-03-17] MEDS: Ketorolac 30 MG/ML Syringe IV (11:55)
[2023-03-17 12:39] VITALS: RESP 16
--- NOTE | 2023-03-17 13:39 | EDS_ITS ---
HPI History of Present Illness Chief Complaint: Abd Pain Informant: patient Onset/Context/Timing Onset: Days Context: Gradual Onset Timing: Waxes and wanes Narrative Narrative: Patient presents secondary to increasing abdominal pain. She has had problems with abdominal pain recently and had an EGD that revealed some ulcers. Patient states her last bowel movement was 5 days ago and she feels constipated. She was not sure what she could take at home. She denies urinary symptoms. No fever or chills. PFSH PFSH Medical History Allergies Back problem Bone fracture Clostridioides difficile infection Crohns disease Depression Diarrhea Diverticulitis Esophageal reflux Gallstones H/O emotional problems Hematuria Hx: UTI (urinary tract infection) Hypothyroidism Internal hemorrhoids Liver lesion Lumbago Neuropathy Osteopenia Pneumonia PTSD (post-traumatic stress disorder) Sleep apnea Thyroid disease Urinary frequency Home Medications lisinopril 20 mg tablet 20 mg PO DAILY 12/21/13 [History Last Taken 12/28/22] atenolol 25 mg tablet 25 mg PO DAILY 11/24/18 [History Last Taken 12/27/22] levothyroxine 75 mcg capsule 75 mcg PO DAILY 11/11/22 [History Last Taken 12/28/22] Lactobacillus acidophilus 20 billion cell capsule (Florajen Acidophilus) 10 mg PO DAILY . 12/28/22 [History Last Taken 12/27/22] atorvastatin 40 mg tablet 40 mg PO QHS CHOLESTEROL 12/28/22 [History Last Taken 12/27/22] fluticasone propionate 50 mcg/actuation nasal spray,suspension 2 spray intranasal DAILY PRN ALLERGIES 12/28/22 [History Last Taken 1 Week Ago ~12/21/22] potassium chloride 20 mEq tablet,extended release(part/cryst) (Klor-Con M) 40 meq PO BID POTASSIUM 12/28/22 [History Last Taken 12/27/22] ondansetron 4 mg disintegrating tablet 4 mg PO Q8H PRN PRN Nausea #10 tabs 01/10/23 [Rx Last Taken Unknown] lidocaine 4 % topical patch 1 patch topical DAILY PRN Pain 01/13/23 [History Last Taken Unknown] pantoprazole 40 mg tablet,delayed release 40 mg PO DAILY #30 tabs 01/17/23 [Rx Last Taken Unknown] prednisone 20 mg tablet 20 mg PO DAILY 30 days #30 tabs 01/17/23 [Rx Last Taken Unknown] dicyclomine 20 mg tablet 20 mg PO BID PRN abdominal discomfort #60 tabs 01/20/23 [Rx Last Taken Unknown] Super Collagen & Vitamin C 1 tab PO TID 01/21/23 [History Last Taken Unknown] aspirin 81 mg tablet,delayed release (Ecotrin Low Strength) 81 mg PO DAILY #90 tabs 01/30/23 [Rx Last Taken Unknown] calcium carbonate 600 mg-vitamin D3 5 mcg (200 unit) tablet 1 tab PO DAILY #90 tabs 02/04/23 [Rx Last Taken Unknown] ondansetron 4 mg disintegrating tablet 4 mg PO Q6H #90 tabs 02/04/23 [Rx Last Taken Unknown] cyclobenzaprine 10 mg tablet 10 mg PO BID PRN Back Pain #20 tabs 02/17/23 [Rx Last Taken Unknown] escitalopram oxalate 10 mg tablet (Lexapro) 5 mg PO DAILY #30 tabs 02/17/23 [Rx Last Taken Unknown] loratadine 10 mg tablet 10 mg PO DAILY PRN 02/17/23 [History Last Taken Unknown] multivitamin with folic acid 400 mcg tablet (Therems Multivitamin) 1 tab PO DAILY SUPPLEMENT #90 tabs 02/17/23 [Rx Last Taken Unknown] spironolactone 25 mg tablet 25 mg PO DAILY supplement 02/17/23 [History Last Taken Unknown] gabapentin 600 mg tablet (Neurontin) 600 mg PO QHS PRN Pain #7 tabs 02/18/23 [Rx Last Taken Unknown] Allergy/AdvReac Type Severity Reaction Status Date / Time Penicillins [PCN] Allergy Unknown Verified 03/17/23 08:44 Tetracyclines AdvReac Nausea Verified 03/17/23 08:44 Family History Grandmother Bowel disease Myocardial infarction Hypertension Aunt Bowel disease Ovarian cancer Mother Diabetes High cholesterol Father Diabetes Heart disease Thyroid disorder Hypertension High cholesterol Myocardial infarction Grandmother Cancer pancreatic Other Anemia Colon cancer Surgical History H/O wrist surgery History of cholecystectomy History of hysterectomy Hx of section Previous back surgery [place] teeth extracted Social History household members: significant other current occupational status: unemployed current occupation: multiple jobs Smoking Status: Former smoker quit date: 10/27/21 pack-years: 3 alcohol intake: former substance use type: former substance user Date of last use: marijuana 09/2022 what type of physical activity do you participate in: none seatbelt use: always do you feel safe at home: Yes ROS ROS ED Constitutional Constitutional ED: Denies chills or fever(s) Eyes Eyes: Denies change in vision ENT ENT ED: Denies rhinorrhea or sore throat Cardiovascular Cardiovascular: Denies chest pain or palpitations Respiratory/Chest Respiratory/Chest: Denies cough or dyspnea Gastrointestinal Gastrointestinal: Reports abdominal pain and constipation; Denies diarrhea, nausea or vomiting Genitourinary Genitourinary ED: Denies dysuria Musculoskeletal Musculoskeletal: Denies back pain or extremity pain Integumentary Denies Abrasions or rash Neurologic Neurologic: Denies headache(s) or weakness Allergic/Immunologic Allergic/Immunologic ED: Denies lip swelling or urticaria EXAM Physical Exam Const Vital Signs: 03/17/23 08:44 03/17/23 12:39 03/17/23 13:46 Temperature 97.8 F Temperature Source Temporal Pulse Rate 98 80 Respiratory Rate 18 16 18 Blood Pressure 140/110 H 140/93 H Blood Pressure Mean 120 Pulse Ox 100 98 Oxygen Delivery Method Room Air Room Air Positive well nourished and well developed General Appearance ED: well developed HEENT Reports normocephalic and head/scalp atraumatic Eyes PERRL and EOMs intact bilaterally Neck supple Chest Wall inspection of chest normal and palpation of chest normal Resp normal respiratory effort and clear to auscultation bilaterally Cardio regular rate and regular rhythm GI GI Narrative: Abdomen soft with lower abdominal tenderness palpation. No guarding or rebound. Hypoactive bowel sounds. Palpation: soft Back/Spine no CVA tenderness Extremity normal to inspection Neuro oriented x3 and no sensory deficits noted Sensorium / Orientation: alert Motor Exam: strength 5/5 throughout Psych Mood & Affect: anxious Skin no rashes or lesions noted MDM MDM MDM Narrative Medical decision making narrative: Patient initially ordered IV fluids along with Bentyl. Laboratory evaluation un dertaken along with abdominal x-ray to evaluate for bowel obstruction. Lab Data Attestation: I reviewed the patient's lab results. Labs: Laboratory Results - last 24 hr 03/17/23 03/17/23 09:45 09:45 WBC 18.2 H RBC 4.60 Hgb 15.2 H Hct 43.7 MCV 95.0 MCH 33.0 H MCHC 34.8 RDW Std Deviation 44.8 H RDW Coeff of Jessica 12.8 Plt Count 257 MPV 9.4 Immature Gran % (Auto) 0.900 Neut % (Auto) 53.9 Lymph % (Auto) 39.2 [place] % (Auto) 5.2 Eos % (Auto) 0.5 Baso % (Auto) 0.3 Absolute Neuts (auto) 9.8 H Absolute Lymphs (auto) 7.13 H Nucleated RBC % 0 Differential Comment SCANNED Reactive Lymphocytes 1+ Sodium 140 Potassium 3.4 L Chloride 103 Carbon Dioxide 26.0 Anion Gap 11 BUN 14 Creatinine 0.79 Estim Creat Clear Calc 52.36 Est GFR (MDRD) Af Amer 94 Est GFR (MDRD) Non-Af 78 BUN/Creatinine Ratio 17.7 Glucose 106 Calcium 9.3 Radiography Diagnostic Testing: Clinical Impression(s) from Imaging Studies KUB X-Ray 03/17/23 10:00 IMPRESSION: No bowel obstruction. Constipation. Electronically Signed: Reji Arriola MD at 10:39 EDT , Treatment and Re-Evaluation :: CBC reveals an elevated white count at 18.2 with normal differential. On review of her prior records this appears to be consistent as patient frequently has significant leukocytosis with a normal differential. Chemistry studies are largely unremarkable. Potassium is slightly low at 3.4. Abdominal x-ray per my interpretation reveals no evidence of bowel obstruction. Increased stool is noted. Radiology interpretation is reviewed. Patient did receive a dose of Toradol for additional pain control. Soapsuds enema was performed at bedside with good results. At this time patient does report feeling improved. She has MiraLAX at home. I encouraged her to use this twice a day for the next 3 days and then just once a day to help get her cleaned out. She will follow-up with her transport coordinator. Return instructions given. Discharge Plan Triage Chief Complaint: Abd Pain ED Provider: Luba Godoy Dx/Rx/DC Orders Clinical Impression: Constipation, Abdominal pain Instructions: ED Constipation (Adult) Prescriptions: No Action levothyroxine 75 mcg capsule 75 mcg PO DAILY spironolactone 25 mg tablet 25 mg PO DAILY prednisone 20 mg tablet 20 mg PO DAILY 30 Days Qty: 30 3RF pantoprazole 40 mg tablet,delayed release (DR/EC) 40 mg PO DAILY Qty: 30 3RF Super Collagen & Vitamin C 1 tab PO TID lidocaine 4 % adhesive patch,medicated 1 patch topical DAILY PRN (Reason: Pain) loratadine 10 mg tablet 10 mg PO DAILY PRN cyclobenzaprine 10 mg tablet 10 mg PO BID PRN (Reason: Back Pain) Qty: 20 0RF escitalopram oxalate [Lexapro] 10 mg tablet 5 mg PO DAILY Qty: 30 0RF multivitamin with folic acid [Therems Multivitamin] 400 mcg tablet 1 tab PO DAILY Qty: 90 0RF lisinopril 20 MG tablet 20 mg PO DAILY atenolol 25 MG tablet 25 mg PO DAILY atorvastatin 40 mg tablet 40 mg PO QHS Label Comments: TAKE 1 TABLET BY MOUTH DAILY AT BEDTIME. FOR CHOLESTEROL potassium chloride [Klor-Con M20] 20 mEq tablet,ER particles/crystals 40 meq PO BID Label Comments: TAKE 2 TABLETS BY MOUTH IN THE MORNING AND 2 TABLETS IN THE EVENING fluticasone propionate 50 mcg/actuation spray,suspension 2 spray INTRANASAL DAILY PRN (Reason: ALLERGIES) Label Comments: USE 2 SPRAYS IN EACH NOSTRIL ONCE DAILY. RINSE MOUTH AFTER USE. Florajen Acidophilus 20 billion cell Capsule 10 mg PO DAILY ondansetron 4 mg tablet,disintegrating 4 mg PO Q8H PRN PRN (Reason: Nausea) Qty: 10 0RF dicyclomine 20 mg tablet 20 mg PO BID PRN (Reason: abdominal discomfort) Qty: 60 2RF aspirin [Ecotrin Low Strength] 81 mg tablet,delayed release (DR/EC) 81 mg PO DAILY Qty: 90 1RF calcium carbonate-vitamin D3 600 mg-5 mcg (200 unit) tablet 1 tab PO DAILY Qty: 90 1RF ondansetron 4 mg tablet,disintegrating 4 mg PO Q6H Qty: 90 3RF gabapentin [Neurontin] 600 mg tablet 600 mg PO QHS PRN (Reason: Pain) Qty: 7 0RF Primary Care Provider: Jessica Buenrostro Referrals: Jessica Buenrostro MD [Primary Care Provider] - Friend,DO Arthur [Med Staff - Active Staff] - As Needed Disposition Disposition: Home, Self Care Discharge Date/Time: 03/17/23 13:46
[2023-03-17 13:46] VITALS: BP 140/93; PULSE 80; RESP 18; O2SAT 98
== END 2023-03-17 13:46 | disposition home or self-care (01) ==
PROVIDERS: Emergency Provider Emergency Medicine; PCP Internal Medicine; Visit Provider Emergency Medicine
DX: K59.00 Constipation, unspecified (principal); Z87.891 Personal history of nicotine dependence
CPT/HCPCS: 74018; 80048; 85025; 96372; 96374; 99284; J7030; A4216

== ENCOUNTER → 2023-03-31 | Outpatient (CLI) | payer MEDICARE, MEDICAID, SELFPAY ==
[2023-03-31 12:03] LABS: Absolute Lymphocyte Count 3.97 X10^3/uL (0.83-4.51); Absolute Neutrophil Count 12.4 X10^3/uL (2.0-7.7); Basophil# 0.05 X10^3/uL; Basophil% 0.3 % (0-1); Eosinophils% 0.6 % (0-5); Hematocrit 43.5 % (37-47); Hemoglobin 14.6 g/dL (12.0-15.0); Lymphocyte # 3.97 X10^3/ul (0.83-4.51); Lymphocyte % 22.8 % (19-41); Mean Corp Hgb Conc 33.6 g/dL (32-36); Mean Corpuscular Hgb 31.8 pg (27.0-32.0); Mean Corpuscular Volume 94.8 fL (81-99); Monocyte% 4.6 % (0-10); NRBC Flagged by Analyzer 0 % (0-5); Neutrophil # 12.37 X10^3/uL (2.7-7.7); Platelet Count 273 K/mm3 (150-450); RBC Distribution Width CV 12.7 % (11.6-14.6); RBC Distribution Width SD 43.7 fl (35.1-43.9); Red Blood Count 4.59 M/mm3 (4.2-5.4); White Blood Count 17.4 K/mm3 (4.4-11.0)
[2023-03-31 12:36] LABS: AST(SGOT) 17 U/L (15-37); Alanine Aminotransfer ALT/SGPT 32 U/L (13-56); Albumin, Serum 3.6 g/dL (3.2-5.0); Alkaline Phosphatase 60 U/L (45-117); Anion Gap 6 (5-15); BUN 15 mg/dL (7-18); Calcium,Total 9.3 mg/dL (8.5-10.1); Chloride 105 mmol/L (98-107); Creatinine, Serum 0.71 mg/dL (0.55-1.02); EST Glomerular Filtration Rate 88 mL/min (>60); Est Glom Filt Rate - Afr Amer 106 mL/min (>60); Globulin 3.5 g/dL (2.2-4.2); Glucose 132 mg/dL (74-106); Potassium 3.9 mmol/L (3.5-5.1); Protein, Total 7.1 g/dL (6.4-8.2); Sodium Level 140 mmol/L (136-145)
== END | disposition home or self-care (01) ==
LOC: BIMLAB 10:44
PROVIDERS: PCP Internal Medicine; Visit Provider Internal Medicine
DX: I10 Essential (primary) hypertension (principal)
CPT/HCPCS: 36415; 80053; 85025

== ENCOUNTER 2023-04-02 09:56 | Day surgery (SDC) | payer MEDICARE, MEDICAID, SELFPAY ==
[2023-04-02] VITALS (7 sets, daily range): BP systolic 100–140; BP diastolic 60–98; PULSE 66–94; RESP 16; TEMP 36.1–36.9; O2SAT 94–99; BMI 29.7
--- NOTE | 2023-04-02 | COLBX_PTH ---
PATIENT: ISAAC LOPEZ LOC: [facility] U#:[id number] AGE/SX: 62/F ROOM: RE04/02/[address]: Dr. Arthur Cervantes DO : 1960 BED: DIS: 04/02/2023 SPEC #: [id number] RECD: 04/02/23 13:49 STATUS: ELA BERENICE #: [id number] WINSTON: 04/02/23 00:[address]: Arthur Cervantes DEPT: SURGICAL PATHOLOGY RECD BY: Otilio Llanos ENTERED: 04/03/23 09:22 SP TYPE: COLON BX OTHR DR: Dr. Jessica Buenrostro MD Tissues: A - Ileum, NOS B - Small intestine biopsy Procedures: Surgery Specimen Level IV HEADER OPERATION: Colonoscopy (MAC), biopsy, dilation of terminal ileum PRE-OP DIAGNOSIS: Abdominal pain, exacerbation of Crohn?s disease of small intestine, C. diff infection TISSUE SUBMITTED: A ? Terminal ileum biopsy, B ? Small bowel mass biopsy MICROSCOPIC DIAGNOSIS A. Terminal ileum, biopsy: Fragments of small intestinal mucosa with glandular distortion and chronic inflammation. See comment. B. Small bowel mass, biopsy: Fragments of small intestinal mucosa with ulceration, acute and chronic inflammation and glandular distortion. Negative for malignancy. See comment. SJ:rg 04/04/2023 COMMENT A & B. Cryptitis, crypt abscesses or glandular distortion are not seen. Correlation with clinical, endoscopic findings and appropriate follow up are necessary. MICROSCOPIC DESCRIPTION Slides are reviewed. GROSS DESCRIPTION A - Received in fixative is one container labeled with the patient's name and designated terminal ileum. The specimen consists of multiple irregular fragments of light wood soft tissue that in aggregate measure 1.5 x 0.6 x 0.1 cm. The specimen is totally submitted in one cassette. B - Received in fixative is one container labeled with the patient's name and designated small bowel mass. The specimen consists of multiple irregular fragments of light wodo soft tissue that in aggregate measure 1.0 x 0.5 x 0.1 cm. The specimen is totally submitted in one cassette. / TRICIA:roxi 04/03/2023 TC:2 CPT: 37263 x2
[2023-04-02] MEDS: Lactated Ringers 1,000 ML 15 ML IV (10:27)
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
--- NOTE | 2023-04-02 11:47 | OP.CCLET_ITS ---
04/02/2023 Jessica Buenrostro Md Re : Colonoscopy procedure for Keyana Rahman Dear Porter This procedure was performed on Sunday, April 02, 2023. My impressions and recommendations are as follows: Impressions : - The entire examined colon is normal. - Stricture in the terminal ileum. Biopsied. - Likely benign partially obstructing tumor in the terminal ileum. Biopsied. Recommendations : - Discharge patient to home. - Resume previous diet. - Continue present medications. - Await pathology results. - Repeat colonoscopy in 1 year for surveillance based on pathology results. My findings are described in the full procedure note, which is enclosed. If I can be of further assistance, please feel free to contact me at . Sincerely, Arthur Cervantes, 04/02/2023 11:47:00 AM This report has been signed electronically.
--- NOTE | 2023-04-02 11:47 | OP.COLON_ITS ---
Patient Name: Keyana Rahman Procedure Date: 04/02/2023 11:08 AM Date of : 1960 Age: 62 Procedure: Colonoscopy Indications: Suspected Crohn's disease of the small bowel Providers: Arthur Cervantes DO Referring MD: Jessica Buenrostro Md Medicines: Monitored Anesthesia Care Patient Profile: This is a 62 year old female. Refer to note in patient chart for documentation of history and physical. Last Colonoscopy: more than 3 years ago. Complications: No immediate complications. Procedure: Pre-Anesthesia Assessment: - Prior to the procedure, a History and Physical was performed, and patient medications and allergies were reviewed. The risks and benefits of the procedure and the sedation options and risks were discussed with the patient. All questions were answered and informed consent was obtained. Patient identification and proposed procedure were verified by the physician in the pre-procedure area. Mental Status Examination: alert and oriented. Airway Examination: normal oropharyngeal airway and neck mobility. Respiratory Examination: clear to auscultation. CV Examination: normal. Prophylactic Antibiotics: The patient does not require prophylactic antibiotics. Prior Anticoagulants: The patient has taken no previous anticoagulant or antiplatelet agents. After reviewing the risks and benefits, the patient was deemed in satisfactory condition to undergo the procedure. The anesthesia plan was to use monitored anesthesia care (MAC). Immediately prior to administration of medications, the patient was re-assessed for adequacy to receive sedatives. The heart rate, respiratory rate, oxygen saturations, blood pressure, adequacy of pulmonary ventilation, and response to care were monitored throughout the procedure. The physical status of the patient was re-assessed after the procedure. After I obtained informed consent, the scope was passed under direct vision. Throughout the procedure, the patient's blood pressure, pulse, and oxygen saturations were monitored continuously. The adult colonoscope was introduced through the anus and advanced to the cecum, identified by appendiceal orifice and ileocecal valve. The colonoscopy was performed without difficulty. The patient tolerated the procedure well. The quality of the bowel preparation was adequate. Scope In: 11:14:30 AM Scope Withdrawal Time 0 hours 19 minutes 37 seconds Scope Out: 11:38:13 AM Total Procedure Duration Time 0 hours 23 minutes 43 seconds Findings: The perianal and digital rectal examinations were normal. The colon (entire examined portion) appeared normal. The terminal ileum contained a benign-appearing, intrinsic severe stenosis measuring 5 cm (in length) x 3 mm (inner diameter) that was traversed after dilation. Biopsies were taken with a cold forceps for histology. Verification of patient identification for the specimen was done. Estimated blood loss was minimal. A TTS dilator was passed through the scope. Dilation with a 16.5 mm colonic balloon dilator was performed. The dilation site was examined and showed moderate improvement in luminal narrowing. Estimated blood loss was minimal. The terminal ileum contained an ulcerated partially obstructing large mass. The mass was partially circumferential (involving one-third of the lumen circumference). The mass measured two cm in length. In addition, its diameter measured three mm. No bleeding was present. No stigmata of recent bleeding were seen. This was biopsied with a cold forceps for histology. Verification of patient identification for the specimen was done. Estimated blood loss was minimal. A few small-mouthed diverticula were found in the recto-sigmoid colon and sigmoid colon. Impression: - The entire examined colon is normal. - Stricture in the terminal ileum. Biopsied. - Likely benign partially obstructing tumor in the terminal ileum. Biopsied. Recommendation: - Discharge patient to home. - Resume previous diet. - Continue present medications. - Await pathology results. - Repeat colonoscopy in 1 year for surveillance based on pathology results. Procedure Code(s): --- Professional --- 93026, Colonoscopy, flexible; with biopsy, single or multiple CPT copyright 2017 [employer]. All rights reserved. The codes documented in this report are preliminary and upon set up / operator review may be revised to meet current compliance requirements. Arthur Cervantes DO 04/02/2023 11:47:00 AM This report has been signed electronically. Number of Addenda: 0 Note Initiated On: 04/02/2023 11:08 AM
== END 2023-04-02 12:16 | disposition home or self-care (01) ==
LOC: EN 09:58 → AC 10:01
PROVIDERS: PCP Internal Medicine; Referring Provider Internal Medicine; Visit Provider Internal Medicine Gastroenterology
PROC: 0DJD8ZZ Inspection of Lower Intestinal Tract, Via Natural or Artificial Opening Endoscopic (ICD-10-PCS; CPT 45378; principal; 2023-04-02 11:25)
DX: K50.90 Crohn's disease, unspecified, without complications (principal); K57.30 Diverticulosis of large intestine without perforation or abscess without bleeding; G47.33 Obstructive sleep apnea (adult) (pediatric); F32.A Depression, unspecified; K21.9 Gastro-esophageal reflux disease without esophagitis; E78.00 Pure hypercholesterolemia, unspecified; I10 Essential (primary) hypertension; E03.9 Hypothyroidism, unspecified; Z87.891 Personal history of nicotine dependence; Z79.82 Long term (current) use of aspirin; Z79.899 Other long term (current) drug therapy
CPT/HCPCS: 45380; 88305; J7120; J2405

== ENCOUNTER 2023-04-15 09:30 | Outpatient (CLI) | payer MEDICARE, MEDICAID, SELFPAY ==
[2023-04-15 09:51] VITALS: BP 160/89; PULSE 74; RESP 16; TEMP 35.9; O2SAT 96; BMI 30.4
[2023-04-15 12:01] VITALS: BP 143/81; PULSE 78; RESP 14; O2SAT 96
== END 2023-04-15 09:31 | disposition home or self-care (01) ==
PROVIDERS: PCP Internal Medicine; Visit Provider Internal Medicine Gastroenterology
DX: K50.90 Crohn's disease, unspecified, without complications (principal)
CPT/HCPCS: 96365; 96366; J7050; A4216; J3358

== ENCOUNTER → 2023-07-29 | Outpatient (CLI) | payer MEDICARE, MEDICAID, SELFPAY ==
[2023-07-29 10:39] LABS: Absolute Lymphocyte Count 3.88 X10^3/uL (0.83-4.51); Absolute Neutrophil Count 10.8 X10^3/uL (2.0-7.7); Basophil# 0.06 X10^3/uL; Basophil% 0.4 % (0-1); Eosinophil# 0.23 X10^3/uL; Eosinophils% 1.5 % (0-5); Hematocrit 40.8 % (37-47); Hemoglobin 13.5 g/dL (12.0-15.0); Lymphocyte # 3.88 X10^3/ul (0.83-4.51); Lymphocyte % 24.8 % (19-41); Mean Corp Hgb Conc 33.1 g/dL (32-36); Mean Corpuscular Volume 93.6 fL (81-99); Mean Platelet Vol. 9.4 fl (6.2-12.0); Monocyte# 0.62 X10^3/uL; NRBC Flagged by Analyzer 0 % (0-5); Neutrophil # 10.81 X10^3/uL (2.7-7.7); Neutrophil % 68.9 % (47-70); Platelet Count 286 K/mm3 (150-450); RBC Distribution Width CV 11.4 % (11.6-14.6); RBC Distribution Width SD 39.6 fl (35.1-43.9); Red Blood Count 4.36 M/mm3 (4.2-5.4); White Blood Count 15.7 K/mm3 (4.4-11.0)
[2023-07-29 11:06] LABS: Erythrocyte Sedimentation Rate 25 mm/hr (0-30)
[2023-07-29 11:23] LABS: AST(SGOT) 17 U/L (15-37); Alanine Aminotransfer ALT/SGPT 25 U/L (13-56); Albumin, Serum 3.8 g/dL (3.2-5.0); Alkaline Phosphatase 75 U/L (45-117); Anion Gap 3 (5-15); BUN 13 mg/dL (7-18); BUN/Creat Ratio 17.3 RATIO (10-20); CRP < 2.90 mg/L (0.0-3.0); Calcium,Total 8.9 mg/dL (8.5-10.1); Chloride 108 mmol/L (98-107); Creatinine, Serum 0.75 mg/dL (0.55-1.02); EST Glomerular Filtration Rate 83 mL/min (>60); Est Glom Filt Rate - Afr Amer 100 mL/min (>60); Globulin 3.7 g/dL (2.2-4.2); Glucose 91 mg/dL (74-106); Potassium 3.8 mmol/L (3.5-5.1); Protein, Total 7.5 g/dL (6.4-8.2); Sodium Level 139 mmol/L (136-145)
[2023-08-02 20:07] LABS: Calprotectin, Stool 237 ug/g (0-120)
== END | disposition home or self-care (01) ==
PROVIDERS: PCP Internal Medicine; Referring Provider Internal Medicine Gastroenterology; Visit Provider Internal Medicine Gastroenterology
DX: K50.90 Crohn's disease, unspecified, without complications (principal)
CPT/HCPCS: 36415; 80053; 83630; 83993; 85025; 85652; 86140

== ENCOUNTER 2023-07-30 10:34 | Emergency (ER) | payer MEDICARE, MEDICAID, SELFPAY ==
[2023-07-30 10:35] VITALS: BP 171/118; PULSE 82; RESP 14; TEMP 36.2; O2SAT 96; BMI 30.8
--- NOTE | 2023-07-30 10:51 | EX.ED.DYSGE1 ---
HPI History of Present Illness Chief Complaint: Abd Pain Informant: patient Onset/Context/Timing Onset: Days Context: Gradual Onset Narrative Narrative: Secondary to lower abdominal pain and constipation. She has a history of Crohn's disease. She reports no bowel movement other than a few small hard clement last couple days and has had increasing lower abdominal cramping and pain. She did require ER visit in February for similar and had significant proved with a soapsuds enema. She had no fever. [facility] Medical History Abnormal EKG Allergies Arthritis Back pain Back problem Bone fracture Clostridioides difficile infection CPAP (continuous positive airway pressure) dependence Depression Diarrhea Difficulty chewing Difficulty swallowing Diverticulitis Diverticulosis Dyslipidemia Esophageal reflux Essential (primary) hypertension Former smoker Gallstones Gastric reflux H/O emotional problems Hematuria High cholesterol History of Clostridium difficile infection History of Crohn's disease History of echocardiogram History of steroid therapy History of stress test History of ulceration Hx: UTI (urinary tract infection) Hypertension Hypothyroidism Injury of back Internal hemorrhoids Liver lesion Lumbago Neuropathy LINDY on CPAP Osteopenia Pneumonia Post-menopausal Preoperative cardiovascular examination PTSD (post-traumatic stress disorder) Shortness of breath on exertion Sleep apnea Thyroid disease Thyroid disease Unstable angina Urinary frequency Wears glasses Home Medications atenolol 25 mg tablet 25 mg PO DAILY 11/24/18 [History Last Taken 12/27/22] ondansetron 4 mg disintegrating tablet 4 mg PO Q8H PRN PRN Nausea #10 tabs 01/10/23 [Rx Last Taken Unknown] lidocaine 4 % topical patch 1 patch topical DAILY PRN Pain 01/13/23 [History Last Taken Unknown] pantoprazole 40 mg tablet,delayed release 40 mg PO DAILY #30 tabs 01/17/23 [Rx Last Taken Unknown] Super Collagen & Vitamin C 1 tab PO TID 01/21/23 [History Last Taken Unknown] aspirin 81 mg tablet,delayed release (Ecotrin Low Strength) 81 mg PO DAILY #90 tabs 01/30/23 [Rx Last Taken 03/31/23] calcium carbonate 600 mg-vitamin D3 5 mcg (200 unit) tablet 1 tab PO DAILY #90 tabs 02/04/23 [Rx Last Taken Unknown] spironolactone 25 mg tablet 25 mg PO DAILY supplement 02/17/23 [History Last Taken Unknown] Lactobacillus rhamnosus GG 10 billion cell capsule (Culturelle) 1 cap PO DAILY 04/01/23 [History Last Taken Unknown] potassium chloride 20 mEq tablet,extended release(part/cryst) (Klor-Con M) 40 meq PO BID PRN POTASSIUM 04/01/23 [History Last Taken Unknown] ustekinumab 130 mg/26 mL intravenous solution (Stelara) 390 mg (78 mL) .Route ONCE #78 mL 04/10/23 [Rx Last Taken Unknown] ustekinumab 90 mg/mL subcutaneous syringe (Stelara) 90 mg subcut Q8W #1 mL 04/10/23 [Rx Last Taken Unknown] atorvastatin 40 mg tablet 40 mg PO QHS CHOLESTEROL #90 tabs 05/01/23 [Rx Last Taken Unknown] loratadine 10 mg tablet 10 mg PO DAILY PRN Inflammation #90 tabs 05/01/23 [Rx Last Taken Unknown] multivitamin with folic acid 400 mcg tablet (Therend Multivitamin) 1 tab PO DAILY SUPPLEMENT #90 tabs 05/19/23 [Rx Last Taken Unknown] linaclotide 290 mcg capsule (Linzess) 290 mcg PO DAILY #30 caps 05/29/23 [Rx Last Taken Unknown] levothyroxine 75 mcg tablet 75 mcg PO DAILY #90 tabs 06/24/23 [Rx Last Taken Unknown] lisinopril 40 mg tablet 40 mg PO DAILY #90 tabs 07/06/23 [Rx Last Taken Unknown] fluticasone propionate 50 mcg/actuation nasal spray,suspension 2 spray intranasal DAILY PRN ALLERGIES #16 grams 07/18/23 [Rx Last Taken Unknown] magnesium citrate 300 ml PO X1 #1 BOTTLE 07/30/23 [Rx Last Taken Unknown] Allergy/AdvReac Type Severity Reaction Status Date / Time Penicillins [PCN] Allergy Unknown Verified 07/30/23 10:37 Tetracyclines AdvReac Nausea Verified 07/30/23 10:37 Family History Grandmother Bowel disease Myocardial infarction Hypertension Aunt Bowel disease Ovarian cancer Mother Diabetes High cholesterol Father Diabetes Heart disease Thyroid disorder Hypertension High cholesterol Myocardial infarction Grandmother Cancer pancreatic Other Anemia Colon cancer Surgical History H/O wrist surgery History of cardiac catheterization History of cholecystectomy History of hysterectomy Hx of section Previous back surgery [place] teeth extracted Social History household members: significant other current occupational status: unemployed current occupation: multiple jobs Smoking Status: Former smoker quit date: 10/27/21 pack-years: 3 alcohol intake: former substance use type: former substance user Date of last use: marijuana 09/2022 what type of physical activity do you participate in: none seatbelt use: always do you feel safe at home: Yes ROS ROS ED Constitutional Constitutional ED: Denies chills or fever(s) Eyes Eyes: Denies change in vision ENT ENT ED: Denies rhinorrhea or sore throat Cardiovascular Cardiovascular: Denies chest pain or palpitations Respiratory/Chest Respiratory/Chest: Denies cough or dyspnea Gastrointestinal Gastrointestinal: Reports abdominal pain and constipation; Denies diarrhea, nausea or vomiting Genitourinary Genitourinary ED: Denies dysuria Musculoskeletal Musculoskeletal: Denies back pain or extremity pain Integumentary Denies Abrasions or rash Neurologic Neurologic: Denies headache(s) or weakness Psychiatric Psychiatric: Denies anxiety or depression Allergic/Immunologic Allergic/Immunologic ED: Denies lip swelling or urticaria EXAM Physical Exam Const Vital Signs: 07/30/23 10:35 Temperature 97.2 F L Temperature Source Temporal Pulse Rate 82 Respiratory Rate 14 Blood Pressure 171/118 H Blood Pressure Mean 135 Pulse Ox 96 Oxygen Delivery Method Room Air Positive well nourished and well developed General Appearance ED: well developed HEENT Reports normocephalic and head/scalp atraumatic Eyes PERRL and EOMs intact bilaterally Neck supple Chest Wall inspection of chest normal and palpation of chest normal Resp normal respiratory effort and clear to auscultation bilaterally Cardio regular rate and regular rhythm GI GI Narrative: Soft mild lower abdominal tenderness. No guarding or rebound. Bowel sounds are noted. Palpation: soft Extremity normal to inspection Neuro oriented x3 and no sensory deficits noted Sensorium / Orientation: alert Motor Exam: strength 5/5 throughout Psych mental status grossly normal Skin no rashes or lesions noted MDM MDM MDM Narrative Medical decision making narrative: No x-ray obtained to evaluate for amount of stool and location. Also to ensure no evidence of bowel obstruction. History & Record Review Discussion w/independent historian: Patient and Family Additional record(s) reviewed:: Prior ED visit and Prior labs Lab Data Attestation: I reviewed the patient's lab results. Labs: Laboratory Results - last 24 hr 07/30/23 12:50 Urine Color Yellow Urine Clarity Sl. Cloudy Urine pH 7.0 Ur Specific [place] 1.005 Urine Protein Negative Urine Glucose (UA) Normal Urine Ketones Negative Urine Occult Blood 25 H Urine Nitrite Negative Urine Bilirubin Negative Urine Urobilinogen Normal Ur Leukocyte Esterase Negative Urine RBC 0-5 SEEN Urine WBC 0 SEEN Ur Squamous Epith Cells 0 SEEN Urine Bacteria 0 SEEN Urine Mucus 0 SEEN Radiography Diagnostic Testing: Clinical Impression(s) from Imaging Studies KUB X-Ray 07/30/23 11:05 IMPRESSION: Moderate amount of fecal material is seen in the colon. Electronically Signed: Sher Andersen MD at 11:24 EDT , Treatment and Re-Evaluation :: X-ray per my interpretation does reveal stool but no evidence of bowel obstruction. Radiology interpretation is reviewed. Soapsuds enema is given and patient has had results. I will also write her magnesium citrate to take at home to help clean her out. She will follow-up with her GI doctor. Discharge Plan Triage Chief Complaint: Abd Pain ED Provider: Luba Godoy Dx/Rx/DC Orders Clinical Impression: Constipation Instructions: ED Constipation (Adult) Prescriptions: New magnesium citrate Solution 300 ml PO X1 Qty: 1 0RF No Action spironolactone 25 mg tablet 25 mg PO DAILY pantoprazole 40 mg tablet,delayed release (DR/EC) 40 mg PO DAILY Qty: 30 3RF Super Collagen & Vitamin C 1 tab PO TID lidocaine 4 % adhesive patch,medicated 1 patch topical DAILY PRN (Reason: Pain) atorvastatin 40 mg tablet 40 mg PO QHS Qty: 90 1RF loratadine 10 mg tablet 10 mg PO DAILY PRN (Reason: Inflammation) Qty: 90 1RF Culturelle 10 billion cell capsule 1 cap PO DAILY fluticasone propionate 50 mcg/actuation spray,suspension 2 spray INTRANASAL DAILY PRN (Reason: ALLERGIES) Qty: 16 0RF atenolol 25 MG tablet 25 mg PO DAILY potassium chloride [Klor-Con M20] 20 mEq tablet,ER particles/crystals 40 meq PO BID PRN (Reason: POTASSIUM) Patient Comments: TAKE 2 TABLETS BY MOUTH IN THE MORNING AND 2 TABLETS IN THE EVENING ondansetron 4 mg tablet,disintegrating 4 mg PO Q8H PRN PRN (Reason: Nausea) Qty: 10 0RF aspirin [Ecotrin Low Strength] 81 mg tablet,delayed release (DR/EC) 81 mg PO DAILY Qty: 90 1RF calcium carbonate-vitamin D3 600 mg-5 mcg (200 unit) tablet 1 tab PO DAILY Qty: 90 1RF Stelara 130 mg/26 mL solution 390 mg .Route ONCE Qty: 78 0RF Rx Instructions: Infuse 390mg IV once Stelara 90 mg/mL syringe 90 mg subcut Q8W Qty: 1 6RF multivitamin with folic acid [Therems Multivitamin] 400 mcg tablet 1 tab PO DAILY Qty: 90 0RF Linzess 290 mcg capsule 290 mcg PO DAILY Qty: 30 2RF levothyroxine 75 mcg tablet 75 mcg PO DAILY Qty: 90 0RF lisinopril 40 mg tablet 40 mg PO DAILY Qty: 90 1RF Primary Care Provider: Jessica Buenrostro Referrals: Jessica Buenrostro MD [Primary Care Provider] - Arthur Cervantes DO [Med Staff - Active Staff] - As Needed Disposition Disposition: Home, Self Care
--- NOTE | 2023-07-30 11:05 | RAD_ITS ---
STUDY: X-RAY - ABDOMEN/PELVIS REASON FOR EXAM: Female, 63 years old. Constipation TECHNIQUE: Single AP view of the abdomen / pelvis. COMPARISON: Comparison is made with prior study dated March 17, 2023. FINDINGS: Normal visualized lung bases. There is a moderate amount of colonic fecal material. Surgical clips are seen in the right upper quadrant suggestive of a prior cholecystectomy. There are calcified phleboliths in the pelvis. There are diffuse degenerative changes of the visualized lumbar spine. RAD/Abdomen Single View IMPRESSION: Moderate amount of fecal material is seen in the colon. Electronically Signed: Sher Andersen MD at 11:24 EDT ,
[2023-07-30 12:58] LABS: Bacteria 0 SEEN /hpf (None Seen); Mucous, Urine 0 SEEN /hpf (<or=2+); Squamous Epithelial Cells - UA 0 SEEN /hpf (5-10); White Blood Cells 0 SEEN /hpf (0-5)
[2023-07-30 13:02] LABS: Color, Urine Yellow (Yellow); Glucose, Dipstick Normal (Normal); Ketone-Dipstick Negative (Negative); Leukocyte Esterase-Dipstick Negative /ul (Negative); Nitrite-Dipstick Negative (Negative); Occult Blood-Urine 25 /ul (Negative); Protein-Dipstick Negative (Negative); Specific Gravity, Urine 1.005 (1.002-1.030); Urine Bilirubin Dipstick Negative (Negative); Urine Clarity Sl. Cloudy (Clear); Urine Urobilinogen Normal (Normal)
[2023-07-30 13:11] LABS: Red Blood Cells-Urine 0-5 SEEN /hpf (0-5)
[2023-07-30 13:42] VITALS: PULSE 90; O2SAT 98
== END 2023-07-30 13:46 | disposition home or self-care (01) ==
PROVIDERS: Emergency Provider Emergency Medicine; PCP Internal Medicine; Visit Provider Emergency Medicine
DX: K59.00 Constipation, unspecified (principal); G47.33 Obstructive sleep apnea (adult) (pediatric); R10.30 Lower abdominal pain, unspecified; Z87.891 Personal history of nicotine dependence
CPT/HCPCS: 74018; 81001; 99284

== ENCOUNTER → 2023-08-04 | Outpatient (CLI) | payer MEDICARE, MEDICAID, SELFPAY ==
[2023-08-04 16:47] LABS: Absolute Lymphocyte Count 4.12 X10^3/uL (0.83-4.51); Absolute Neutrophil Count 6.2 X10^3/uL (2.0-7.7); Basophil# 0.03 X10^3/uL; Basophil% 0.3 % (0-1); Eosinophil# 0.19 X10^3/uL; Eosinophils% 1.7 % (0-5); Hematocrit 41.4 % (37-47); Hemoglobin 13.6 g/dL (12.0-15.0); Lymphocyte # 4.12 X10^3/ul (0.83-4.51); Lymphocyte % 37.2 % (19-41); Mean Corp Hgb Conc 32.9 g/dL (32-36); Mean Corpuscular Hgb 31.1 pg (27.0-32.0); Mean Corpuscular Volume 94.5 fL (81-99); Monocyte# 0.56 X10^3/uL; NRBC Flagged by Analyzer 0 % (0-5); Neutrophil # 6.17 X10^3/uL (2.7-7.7); Neutrophil % 55.6 % (47-70); Platelet Count 299 K/mm3 (150-450); RBC Distribution Width CV 11.3 % (11.6-14.6); RBC Distribution Width SD 39.1 fl (35.1-43.9); Red Blood Count 4.38 M/mm3 (4.2-5.4); White Blood Count 11.1 K/mm3 (4.4-11.0)
[2023-08-04 17:04] LABS: Hemoglobin A1c 5.6 % (3.8-5.6)
[2023-08-04 17:06] LABS: T4 Free Direct 1.22 ng/dL (0.76-1.46); Thyroid Stim Hormone (TSH) 0.78 uIU/mL (0.358-3.74)
== END | disposition home or self-care (01) ==
LOC: BIMLAB 14:57
PROVIDERS: PCP Internal Medicine; Referring Provider Internal Medicine; Visit Provider Internal Medicine
DX: I10 Essential (primary) hypertension (principal); R73.03 Prediabetes; D72.829 Elevated white blood cell count, unspecified
CPT/HCPCS: 36415; 83036; 84439; 84443; 85025

== ENCOUNTER → 2023-11-03 | Outpatient (CLI) | payer MEDICARE, MEDICAID, SELFPAY ==
[2023-11-03 08:40] LABS: Bacteria 0 SEEN /hpf (None Seen); Mucous, Urine 0 SEEN /hpf (<or=2+); Squamous Epithelial Cells - UA 0 SEEN /hpf (5-10); White Blood Cells 0 SEEN /hpf (0-5)
[2023-11-03 12:23] LABS: Absolute Neutrophil Count 7.4 X10^3/uL (2.0-7.7); Basophil# 0.07 X10^3/uL; Basophil% 0.5 % (0-1); Eosinophil# 0.15 X10^3/uL; Eosinophils% 1.1 % (0-5); Hematocrit 44.1 % (37-47); Hemoglobin 14.1 g/dL (12.0-15.0); Lymphocyte % 39.7 % (19-41); Mean Corpuscular Hgb 30.6 pg (27.0-32.0); Mean Corpuscular Volume 95.7 fL (81-99); Monocyte# 0.82 X10^3/uL; Monocyte% 5.8 % (0-10); NRBC Flagged by Analyzer 0 % (0-5); Neutrophil # 7.42 X10^3/uL (2.7-7.7); Neutrophil % 52.5 % (47-70); POSITIVE DIFFERENTIAL YES; Platelet Count 280 K/mm3 (150-450); RBC Distribution Width CV 13.1 % (11.6-14.6); Red Blood Count 4.61 M/mm3 (4.2-5.4); White Blood Count 14.1 K/mm3 (4.4-11.0)
[2023-11-03 12:25] LABS: Color, Urine Yellow (Yellow); Glucose, Dipstick Normal (Normal); Ketone-Dipstick Negative (Negative); Leukocyte Esterase-Dipstick Negative /ul (Negative); Nitrite-Dipstick Negative (Negative); Occult Blood-Urine 25 /ul (Negative); Protein-Dipstick Negative (Negative); Urine Bilirubin Dipstick Negative (Negative); Urine Clarity Clear (Clear); Urine Urobilinogen Normal (Normal)
[2023-11-03 12:26] LABS: Differential Indicated SCAN CRITERIA MET
[2023-11-03 12:33] LABS: Red Blood Cells-Urine 0-5 SEEN /hpf (0-5)
[2023-11-03 13:23] LABS: AST(SGOT) 17 U/L (15-37); Alanine Aminotransfer ALT/SGPT 25 U/L (13-56); Albumin, Serum 3.8 g/dL (3.2-5.0); Alkaline Phosphatase 65 U/L (45-117); Anion Gap 4 (5-15); BUN 22 mg/dL (7-18); BUN/Creat Ratio 26.2 RATIO (10-20); Calcium,Total 9.7 mg/dL (8.5-10.1); Chloride 104 mmol/L (98-107); Cholesterol 222 mg/dL (200); Creatinine, Serum 0.84 mg/dL (0.55-1.02); EST Glomerular Filtration Rate 72 mL/min (>60); Est Glom Filt Rate - Afr Amer 88 mL/min (>60); Glucose 89 mg/dL (74-106); High Density Lipoprotein 71 mg/dL; Potassium 4.3 mmol/L (3.5-5.1); Protein, Total 7.8 g/dL (6.4-8.2); Sodium Level 138 mmol/L (136-145); Triglycerides 118 mg/dL; Very Low Density Lipoprotein 24 mg/dL (5-40)
[2023-11-03 14:12] LABS: Hemoglobin A1c 5.4 % (3.8-5.6)
== END | disposition home or self-care (01) ==
LOC: BIMLAB 08:39
PROVIDERS: PCP Internal Medicine; Referring Provider Internal Medicine; Visit Provider Internal Medicine
DX: I10 Essential (primary) hypertension (principal); K50.90 Crohn's disease, unspecified, without complications; R73.03 Prediabetes
CPT/HCPCS: 36415; 80053; 80061; 81001; 83036; 84443; 85025

== ENCOUNTER → 2023-11-17 | Outpatient (CLI) | payer MEDICARE, MEDICAID, SELFPAY ==
[2023-11-17 15:59] LABS: Erythrocyte Sedimentation Rate 22 mm/hr (0-30)
[2023-11-17 16:08] LABS: CRP < 2.90 mg/L (0.0-3.0); LDH 191 U/L (84-246)
[2023-11-20 11:09] LABS: QNTFERON TB Mitogen Value > 10.00 IU/mL (.); QNTFERON TB Nil Value 0 IU/mL (.); QNTFERON TB1+ Ag Value 0.04 IU/mL (.); QNTFERON TB2+ Ag Value 0 IU/mL (.); QNTIFERON TB Positive Criteria Negative (Negative)
[2023-11-23 00:06] LABS: Calprotectin, Stool 23 ug/g (0-120)
== END | disposition home or self-care (01) ==
PROVIDERS: PCP Internal Medicine; Referring Provider Internal Medicine Gastroenterology; Visit Provider Internal Medicine Gastroenterology
DX: K50.90 Crohn's disease, unspecified, without complications (principal)
CPT/HCPCS: 83615; 83630; 83993; 85652; 86140; 86480

== ENCOUNTER → 2024-02-05 | Outpatient (CLI) | payer MEDICARE, MEDICAID, SELFPAY | END | disposition home or self-care (01) | LOC: BIMLAB 08:20 | PROVIDERS: PCP Internal Medicine; Referring Provider Internal Medicine; Visit Provider Internal Medicine | DX: I10 Essential (primary) hypertension (principal) | CPT/HCPCS: 36415; 84132 ==

== ENCOUNTER → 2024-02-26 | Outpatient (CLI) | payer MEDICARE, MEDICAID, SELFPAY ==
--- NOTE | 2024-02-26 07:12 | BI_ITS ---
MAMMOGRAPHY - BILATERAL SCREENING REASON FOR EXAM: Female, 63 years old. Routine annual screening examination. PERTINENT HISTORY: Grandmother with breast cancer. TECHNIQUE: Digital bilateral breast kristal (3D mammographic acquisition) in the CC and MLO projections. 2-D mediolateral oblique (MLO) and craniocaudad (CC) views of both breasts were obtained. CAD: Full Field Digital Mammography with Computer Added Detection was performed. COMPARISON: Comparison is made with prior study dated February 03, 2023. FINDINGS: Breast Composition: The breasts are almost entirely fatty. There are no dominant masses or suspicious calcifications. Stable small benign-appearing bilateral axillary lymph nodes. No other significant abnormalities are identified. There has been no significant change since the prior study. BI/SCRN MAMM (CAD)W/KRISTAL BILAT IMPRESSION: Stable bilateral screening mammogram. Yearly follow-up mammogram recommended. (A) ASSESSMENT CATEGORY: BIRADS Category 2: Benign. A letter regarding these results will be sent to the patient by the facility within 30 days. Approximately 10% of breast cancers are not detected by mammography. A normal mammogram should not delay biopsy of a clinically suspicious abnormality. [id number] Electronically Signed: Sher Andersen MD at 9:27 EDT ,
== END | disposition home or self-care (01) ==
LOC: OPBI 07:12
PROVIDERS: PCP Internal Medicine; Referring Provider Internal Medicine; Visit Provider Internal Medicine
DX: Z12.31 Encounter for screening mammogram for malignant neoplasm of breast (principal)
CPT/HCPCS: 77063; 77067

== ENCOUNTER 2024-04-05 09:36 | Day surgery (SDC) | payer MEDICARE, MEDICAID, SELFPAY ==
[2024-04-05] VITALS (7 sets, daily range): BP systolic 65–176; BP diastolic 45–85; PULSE 52–67; RESP 16; TEMP 36.1–36.6; O2SAT 98–100; BMI 32.6
[2024-04-05] MEDS: Lactated Ringers 1,000 ML 15 ML IV (10:00)
--- NOTE | 2024-04-05 11:00 | COLBX_PTH ---
PATIENT: ISAAC LOPEZ LOC: EN U#:[id number] AGE/SX: 63/F ROOM: RE04/05/[address]: Dr. Arthur Cervantes DO : 1960 BED: DIS: 04/05/2024 SPEC #: [id number] RECD: 04/05/24 14:20 STATUS: ELA BERENICE #: [id number] W[place]: 04/05/24 11:[address]: Arthur Cervantes DEPT: SURGICAL PATHOLOGY RECD BY: Guillermina Santana ENTERED: 04/06/24 09:56 SP TYPE: COLON BX OTHR DR: Dr. Jessica Buenrostro MD Tissues: Ileum, NOS Procedures: Surgery Specimen Level IV HEADER OPERATION: Colonoscopy with biopsy PRE-OP DIAGNOSIS: Crohn's disease, C-Diff, abdominal pain TISSUE SUBMITTED: Terminal ileum biopsy MICROSCOPIC DIAGNOSIS Terminal ileum, biopsy: Consistent with chronic active enteritis. See microscopic description and comment. / 04/07/2024 COMMENT Correlation with clinical, endoscopic findings and appropriate follow up are necessary. MICROSCOPIC DESCRIPTION Slides are reviewed. This specimen shows fragments of small intestinal mucosa with extensive ulceration, acute and chronic inflammatory cells infiltrates in the lamina propria, cryptitis and glandular distortion. Crypt abscess and granulomas are not seen. No evidence of dysplasia. GROSS DESCRIPTION Received in fixative is one container labeled with the patient's name and designated Terminal ileum biopsy. The specimen consists of multiple irregular fragments of light wood soft tissue that in aggregate measure 1.0 x 0.5 x 0.1 cm. The specimen is totally submitted in one cassette. / 04/06/2024 TC:2 CPT:44567
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
--- NOTE | 2024-04-05 11:50 | OP.COLON_ITS ---
Patient Name: Keyana Rahman Procedure Date: 04/05/2024 11:21 AM Date of : 1960 Age: 63 Procedure: Colonoscopy Indications: Crohn's disease of the small bowel Providers: Arthur Cervantes DO Referring MD: Jessica Buenrostro Md Medicines: Monitored Anesthesia Care Patient Profile: This is a 63 year old female. Refer to note in patient chart for documentation of history and physical. Last Colonoscopy: within the past 3 years. Complications: No immediate complications. Procedure: Pre-Anesthesia Assessment: - Prior to the procedure, a History and Physical was performed, and patient medications and allergies were reviewed. The patient is competent. The risks and benefits of the procedure and the sedation options and risks were discussed with the patient. All questions were answered and informed consent was obtained. Patient identification and proposed procedure were verified by the physician. Mental Status Examination: alert and oriented. Airway Examination: normal oropharyngeal airway and neck mobility. Respiratory Examination: clear to auscultation. Prophylactic Antibiotics: The patient does not require prophylactic antibiotics. Prior Anticoagulants: The patient has taken no anticoagulant or antiplatelet agents. ASA Grade Assessment: III - A patient with severe systemic disease. After reviewing the risks and benefits, the patient was deemed in satisfactory condition to undergo the procedure. The anesthesia plan was to use monitored anesthesia care (MAC). Immediately prior to administration of medications, the patient was re-assessed for adequacy to receive sedatives. The heart rate, respiratory rate, oxygen saturations, blood pressure, adequacy of pulmonary ventilation, and response to care were monitored throughout the procedure. The physical status of the patient was re-assessed after the procedure. After I obtained informed consent, the scope was passed under direct vision. Throughout the procedure, the patient's blood pressure, pulse, and oxygen saturations were monitored continuously. The Colonoscope was introduced through the anus and advanced to the terminal ileum. The colonoscopy was performed without difficulty. The patient tolerated the procedure well. The quality of the bowel preparation was adequate. The terminal ileum, ileocecal valve, appendiceal orifice, and rectum were photographed. Scope In: 11:30:53 AM Scope Withdrawal Time 0 hours 6 minutes 40 seconds Scope Out: 11:41:34 AM Total Procedure Duration Time 0 hours 10 minutes 41 seconds Findings: The perianal and digital rectal examinations were normal. Multiple small and large-mouthed diverticula were found in the recto-sigmoid colon and sigmoid colon. The terminal ileum contained a benign-appearing, intrinsic moderate stenosis measuring 3 cm (in length) x 5 mm (inner diameter) that was traversed. Biopsies were taken with a cold forceps for histology. Verification of patient identification for the specimen was done. Estimated blood loss was minimal. Impression: - Diverticulosis in the recto-sigmoid colon and in the sigmoid colon. - Stricture in the terminal ileum. Biopsied. Recommendation: - Discharge patient to home. - Resume previous diet. - Continue present medications. - Await pathology results. - Repeat colonoscopy in 1 year for surveillance. Procedure Code(s): --- Professional --- 08143, Colonoscopy, flexible; with biopsy, single or multiple CPT copyright 2021 [employer]. All rights reserved. The codes documented in this report are preliminary and upon assembler engine review may be revised to meet current compliance requirements. Arthur Cervantes DO 04/05/2024 11:50:15 AM This report has been signed electronically. Number of Addenda: 0 Note Initiated On: 04/05/2024 11:21 AM
--- NOTE | 2024-04-05 11:50 | OP.CCLET_ITS ---
04/05/2024 Jessica Buenrostro Md Re : Colonoscopy procedure for Keyana Rahman Dear Porter This procedure was performed on Friday, April 05, 2024. My impressions and recommendations are as follows: Impressions : - Diverticulosis in the recto-sigmoid colon and in the sigmoid colon. - Stricture in the terminal ileum. Biopsied. Recommendations : - Discharge patient to home. - Resume previous diet. - Continue present medications. - Await pathology results. - Repeat colonoscopy in 1 year for surveillance. My findings are described in the full procedure note, which is enclosed. If I can be of further assistance, please feel free to contact me at . Sincerely, Arthur Cervantes, 04/05/2024 11:50:15 AM This report has been signed electronically.
== END 2024-04-05 12:35 | disposition home or self-care (01) ==
LOC: EN 09:42 → AC 09:47
PROVIDERS: PCP Internal Medicine; Referring Provider Internal Medicine; Visit Provider Internal Medicine Gastroenterology
PROC: 0DJD8ZZ Inspection of Lower Intestinal Tract, Via Natural or Artificial Opening Endoscopic (ICD-10-PCS; CPT 45378; principal; 2024-04-05 10:55)
DX: K50.90 Crohn's disease, unspecified, without complications (principal); K56.699 Other intestinal obstruction unspecified as to partial versus complete obstruction; K57.30 Diverticulosis of large intestine without perforation or abscess without bleeding; I10 Essential (primary) hypertension; E78.5 Hyperlipidemia, unspecified; Z90.49 Acquired absence of other specified parts of digestive tract; A04.72 Enterocolitis due to Clostridium difficile, not specified as recurrent; R10.31 Right lower quadrant pain
CPT/HCPCS: 45380; 88305; J7120; J2405

== ENCOUNTER → 2024-06-10 | Outpatient (CLI) | payer MEDICARE, MEDICAID, SELFPAY ==
[2024-06-10 11:49] LABS: Absolute Lymphocyte Count 3.65 X10^3/uL (0.83-4.51); Absolute Neutrophil Count 7.3 X10^3/uL (2.0-7.7); Basophil# 0.04 X10^3/uL; Basophil% 0.3 % (0-1); Eosinophil# 0.32 X10^3/uL; Eosinophils% 2.7 % (0-5); Hematocrit 41.7 % (37-47); Hemoglobin 13.6 g/dL (12.0-15.0); Lymphocyte # 3.65 X10^3/ul (0.83-4.51); Lymphocyte % 30.7 % (19-41); Mean Corp Hgb Conc 32.6 g/dL (32-36); Mean Corpuscular Hgb 30.6 pg (27.0-32.0); Mean Corpuscular Volume 93.9 fL (81-99); Mean Platelet Vol. 9.3 fl (6.2-12.0); Monocyte# 0.51 X10^3/uL; Monocyte% 4.3 % (0-10); NRBC Flagged by Analyzer 0 % (0-5); Neutrophil # 7.34 X10^3/uL (2.7-7.7); Neutrophil % 61.7 % (47-70); Platelet Count 285 K/mm3 (150-450); RBC Distribution Width CV 11.7 % (11.6-14.6); RBC Distribution Width SD 40.6 fl (35.1-43.9); Red Blood Count 4.44 M/mm3 (4.2-5.4); White Blood Count 11.9 K/mm3 (4.4-11.0)
[2024-06-10 12:23] LABS: AST(SGOT) 21 U/L (15-37); Alanine Aminotransfer ALT/SGPT 21 U/L (13-56); Albumin, Serum 3.8 g/dL (3.2-5.0); Alkaline Phosphatase 80 U/L (45-117); Anion Gap 7 (5-15); BUN 11 mg/dL (7-18); BUN/Creat Ratio 12.4 RATIO (10-20); Calcium,Total 9.6 mg/dL (8.5-10.1); Chloride 103 mmol/L (98-107); Cholesterol 193 mg/dL (200); Creatinine, Serum 0.88 mg/dL (0.55-1.02); EST Glomerular Filtration Rate 68 mL/min (>60); Est Glom Filt Rate - Afr Amer 83 mL/min (>60); Globulin 3.7 g/dL (2.2-4.2); Glucose 107 mg/dL (74-106); High Density Lipoprotein 49 mg/dL; Potassium 4.3 mmol/L (3.5-5.1); Protein, Total 7.5 g/dL (6.4-8.2); Sodium Level 138 mmol/L (136-145); Triglycerides 219 mg/dL; Troponin-I HS 10 pg/mL (3.0-54.0); Very Low Density Lipoprotein 44 mg/dL (5-40)
== END | disposition home or self-care (01) ==
LOC: LAB 11:31
PROVIDERS: PCP Internal Medicine; Referring Provider Physician Assistant; Visit Provider Physician Assistant
DX: I10 Essential (primary) hypertension (principal); E78.5 Hyperlipidemia, unspecified
CPT/HCPCS: 36415; 80053; 80061; 84443; 84484; 85025

== ENCOUNTER → 2024-06-21 | Outpatient (CLI) | payer MEDICARE, MEDICAID, SELFPAY ==
--- NOTE | 2024-06-21 09:44 | CDU_ITS ---
Reason For Study: Carotid Bruit Rt. Velocities/BP Lt. Velocities/BP Prox CCA 80.9/18.2 cm/sec. Prox CCA 67.0/14.2 cm/sec. Mid CCA 91.9/19.3 cm/sec. Mid CCA 79.3/20.4 cm/sec. Dist CCA 64.4/17.1 cm/sec. Dist CCA 69.5/20.4 cm/sec. Prox ICA 56.1/15.0 cm/sec. Prox ICA 80.9/20.4 cm/sec. Mid ICA 68.8/13.8 cm/sec. Mid ICA 78.8/28.0 cm/sec. Dist ICA 102.9/39.1 cm/sec. Dist ICA 73.1/27.4 cm/sec. Rt. ICA/CCA = 1.1. Lt. ICA/CCA = 1.0. Prox ECA 81.8/13.8 cm/sec. Prox ECA 85.5/17.9 cm/sec. Rt. Vert. 45.9/18.8 cm/sec. Lt. Vert. 45.9/10.0 cm/sec. Right Extracranial There is homogeneous, smooth atherosclerotic plaque noted in the right common carotid artery. There is heterogeneous, irregular atherosclerotic plaque noted in the right internal carotid artery. There is intimal thickening but no significant atherosclerotic plaque noted in the right external carotid artery. Antegrade flow is noted in the right vertebral artery. Left Extracranial There is homogeneous, smooth atherosclerotic plaque noted in the left common carotid artery. There is heterogeneous, irregular atherosclerotic plaque noted in the left internal carotid artery. There is heterogeneous, irregular atherosclerotic plaque noted in the left external carotid artery. Antegrade flow is noted in the left vertebral artery. Procedure Carotid Duplex [id number]. This is a Carotid Duplex examination using B-mode, color flow and specral Doppler. The study was technically difficult. Exam performed in department. VL/Carotid Duplex Ultrasound Interpretation Summary Mild (<50%) stenosis right extracranial internal carotid. Mild (<50%) stenosis left extracranial internal carotid. Patent and antegrade vertebrals bilaterally. Ordering Physician: Ferny Luna Referring Physician: Jessica Buenrostro Performed By: Navin Lowe RVT
== END | disposition home or self-care (01) ==
LOC: CVS 09:44
PROVIDERS: PCP Internal Medicine; Referring Provider Physician Assistant; Visit Provider Physician Assistant
DX: R09.89 Other specified symptoms and signs involving the circulatory and respiratory systems (principal)
CPT/HCPCS: 93880

== ENCOUNTER → 2024-08-02 | Outpatient (CLI) | payer MEDICARE, MEDICAID, SELFPAY | END | disposition home or self-care (01) | LOC: PSN 07:36 | PROVIDERS: PCP Internal Medicine; Referring Provider Physician Assistant Medical; Visit Provider Physician Assistant Medical | DX: R42 Dizziness and giddiness (principal) | CPT/HCPCS: 93225; 93226 ==

== ENCOUNTER → 2024-08-17 | Outpatient (CLI) | payer MEDICARE, MEDICAID, SELFPAY ==
--- NOTE | 2024-08-17 08:03 | BD_ITS ---
STUDY: DUAL ENERGY X-RAY ABSORPTIOMETRY / DXA REASON FOR EXAM: Female, 64 years old. Osteoporosis TECHNIQUE: Bone Mineral Density (BMD) measurements of lumbar spine and bilateral hips were obtained. COMPARISON: None. FINDINGS: Lumbar Spine (L1-L4): g/cm2 (1.076) / T-score (0.3) / Z-score (2.0) Findings are suggestive of normal bone density with a low fracture risk. Left Femur Total: g/cm2 (0.764) / T-score (-1.5) / Z-score (-0.2) Left Femoral Neck: g/cm2 (0.596) / T-score (-2.3) / Z-score (-0.8) Right Femur Total: g/cm2 (0.683) / T-score (-2.1) / Z-score (-0.9) Right Femoral Neck: g/cm2 (0.552) / T-score (-2.7) / Z-score (-1.2) BD/Dexa Bone Density Study IMPRESSION: The patient is considered osteoporotic as outlined below according to World Suk[employer] Organization (WHO) criteria with a high fracture risk. Reference Information: The T-score is the number of standard deviations above or below the standard which is normal for young adults at their peak bone mineral density. The World Health Organization (WHO) interprets the T-scores as follows: Above -1 Normal bone density Between -1 and -2.5 Osteopenia Equal to / or below -2.5 Osteoporosis As a practical clinical guideline, osteopenia may be graded as follows: Mild -1 through -1.5 Moderate -1.6 through -2.0 Severe -2.1 through -2.4 The Z-score is the number of standard deviations above or below age-matched controls. A Z-score of less than -1.5 would be considered abnormal. References: 1. NIH Osteoporosis and Related Bone Diseases www osteo.org 2. International Society for Clinical Densitometry www iscd.org 3. National Osteoporosis Foundation www nof.org Electronically Signed: Sher Andersen MD at 14:51 EDT ,
== END | disposition home or self-care (01) ==
LOC: OPBD 07:54
PROVIDERS: PCP Internal Medicine; Referring Provider Nurse Practitioner; Visit Provider Nurse Practitioner
DX: Z78.0 Asymptomatic menopausal state (principal)
CPT/HCPCS: 77080

== ENCOUNTER → 2024-08-24 | Outpatient (CLI) | payer MEDICARE, MEDICAID, SELFPAY ==
--- NOTE | 2024-08-24 08:18 | ART_ITS ---
Reason For Study: Abnormal Test Result Procedure A bilateral lower extremity continuous wave Doppler with analog waveform analysis and ankle brachial indexes. Left Segmental Pressures Left brachial= 175mmHg. Left posterior tibial artery = 162mmHg. Left dorsalis pedis artery = 165mmHg. Left digit = 146 mmHg. The left posterior tibial artery waveforms are biphasic. The left dorsalis pedis waveforms are triphasic. Right Segmental Pressures Right brachial= 180mmHg. Right posterior tibial artery = 187mmHg. Right dorsalis pedis artery = 169mmHg. Right digit = 156 mmHg. The right posterior tibial artery waveforms are triphasic. The right dorsalis pedis waveforms are triphasic. Indices The right ankle brachial index by the posterior tibial artery is 1.04. The right ankle brachial index by the dorsalis pedis is 0.94. The right digital-brachial index is 0.87. The left ankle brachial index by the posterior tibial artery is 0.90. The left ankle brachial index by the dorsalis pedis is 0.92. The left digital-brachial index is 0.81. VL/Ankle Brachial Index Interpretation Summary Right BROOK 1.04 normal. TBI and Doppler/PVR waveforms of the right ankle normal at rest. Left BROOK 0.92, mild arterial insufficiency. Doppler/PVR waveforms of the left a nkle mildly diminished at rest. Ordering Physician: Trisha Kirk Referring Physician: Jessica Buenrostro Performed By: Navin Lowe, RVT
== END | disposition home or self-care (01) ==
LOC: CVS 08:16
PROVIDERS: PCP Internal Medicine; Referring Provider Physician Assistant Medical; Visit Provider Physician Assistant Medical
DX: R09.89 Other specified symptoms and signs involving the circulatory and respiratory systems (principal)
CPT/HCPCS: 93922

== ENCOUNTER → 2025-02-14 | Outpatient (CLI) | payer MEDICARE, MEDICAID, SELFPAY ==
[2025-02-14 09:48] LABS: Absolute Lymphocyte Count 2.97 X10^3/uL (0.83-4.51); Absolute Neutrophil Count 7.4 X10^3/uL (2.0-7.7); Basophil# 0.05 X10^3/uL; Basophil% 0.4 % (0-1); Eosinophil# 0.16 X10^3/uL; Eosinophils% 1.4 % (0-5); Hematocrit 42.9 % (37-47); Hemoglobin 14.4 g/dL (12.0-15.0); Lymphocyte # 2.97 X10^3/ul (0.83-4.51); Lymphocyte % 26.7 % (19-41); Mean Corp Hgb Conc 33.6 g/dL (32-36); Mean Corpuscular Hgb 31.1 pg (27.0-32.0); Mean Corpuscular Volume 92.7 fL (81-99); Mean Platelet Vol. 10.1 fl (6.2-12.0); Monocyte# 0.53 X10^3/uL; Monocyte% 4.8 % (0-10); NRBC Flagged by Analyzer 0 % (0-5); Neutrophil # 7.39 X10^3/uL (2.7-7.7); Neutrophil % 66.4 % (47-70); Platelet Count 270 K/mm3 (150-450); RBC Distribution Width CV 11.5 % (11.6-14.6); RBC Distribution Width SD 39.2 fl (35.1-43.9); Red Blood Count 4.63 M/mm3 (4.2-5.4); White Blood Count 11.1 K/mm3 (4.4-11.0)
[2025-02-14 09:55] LABS: Erythrocyte Sedimentation Rate 18 mm/hr (0-30)
[2025-02-14 11:21] LABS: ALB/GLOB Ratio 1.4 RATIO (0.9-2.4); AST(SGOT) 20 U/L (<=31); Alanine Aminotransfer ALT/SGPT 17 U/L (<=34); Albumin, Serum 4.5 g/dL (3.4-4.8); Alkaline Phosphatase 80 U/L (35-104); Anion Gap 12 (5-15); BUN 14 mg/dL (4-19); BUN/Creat Ratio 21.8 RATIO (10-20); Calcium,Total 9.5 mg/dL (7.6-11.0); Carbon Dioxide 24.1 mmol/L (21.0-32.0); Chloride 102 mmol/L (98-108); Creatinine, Serum 0.66 mg/dL (0.70-1.20); EST Glomerular Filtration Rate 97 (>60); Globulin 3.3 g/dL (2.2-4.2); Glucose 125 mg/dL (70-99); Potassium 3.9 mmol/L (3.3-5.1); Protein, Total 7.8 g/dL (5.9-8.4); Sodium Level 139 mmol/L (133-145); Total Bilirubin 0.59 mg/dL (0.00-1.30)
[2025-02-14 14:33] LABS: Amylase 50 U/L (28-100); CRP < 3.00 mg/L (0.0-3.0); Lipase 36 U/L (13-75)
== END | disposition home or self-care (01) ==
LOC: LAB 08:19
PROVIDERS: PCP Internal Medicine; Referring Provider Internal Medicine Gastroenterology; Visit Provider Internal Medicine Gastroenterology
DX: K50.90 Crohn's disease, unspecified, without complications (principal); D64.9 Anemia, unspecified
CPT/HCPCS: 36415; 80053; 82150; 83690; 85025; 85652; 86140

== ENCOUNTER → 2025-04-08 | Outpatient (CLI) | payer MEDICARE, MEDICAID, SELFPAY ==
--- NOTE | 2025-04-08 08:40 | RAD_ITS ---
EXAM: XR Abdomen, 1 View CLINICAL INDICATION: ABDOMINAL PAIN TECHNIQUE: Frontal supine view of the abdomen/pelvis. COMPARISON: No relevant prior studies available. FINDINGS: GASTROINTESTINAL TRACT: Fecal retention in the colon consistent with constipation. No dilation. BONES/JOINTS: Unremarkable. No acute fracture. RAD/Abdomen Single View IMPRESSION: Fecal retention in the colon consistent with constipation. Reading Location: [facility]
[2025-04-08 10:46] LABS: Erythrocyte Sedimentation Rate 14 mm/hr (0-30)
[2025-04-08 10:48] LABS: Absolute Lymphocyte Count 4.02 X10^3/uL (0.83-4.51); Absolute Neutrophil Count 6.2 X10^3/uL (2.0-7.7); Basophil# 0.05 X10^3/uL; Basophil% 0.4 % (0-1); Eosinophil# 0.35 X10^3/uL; Eosinophils% 3.1 % (0-5); Hematocrit 39.7 % (37-47); Hemoglobin 13.7 g/dL (12.0-15.0); Lymphocyte # 4.02 X10^3/ul (0.83-4.51); Lymphocyte % 35.9 % (19-41); Mean Corp Hgb Conc 34.5 g/dL (32-36); Mean Corpuscular Hgb 31.5 pg (27.0-32.0); Mean Corpuscular Volume 91.3 fL (81-99); Mean Platelet Vol. 10.3 fl (6.2-12.0); Monocyte# 0.57 X10^3/uL; Monocyte% 5.1 % (0-10); NRBC Flagged by Analyzer 0 % (0-5); Neutrophil # 6.19 X10^3/uL (2.7-7.7); Neutrophil % 55.2 % (47-70); Platelet Count 306 K/mm3 (150-450); RBC Distribution Width CV 11.9 % (11.6-14.6); RBC Distribution Width SD 39.8 fl (35.1-43.9); Red Blood Count 4.35 M/mm3 (4.2-5.4); White Blood Count 11.2 K/mm3 (4.4-11.0)
[2025-04-08 14:55] LABS: ALB/GLOB Ratio 1.5 RATIO (0.9-2.4); AST(SGOT) 18 U/L (<=31); Alanine Aminotransfer ALT/SGPT 16 U/L (<=34); Albumin, Serum 4.3 g/dL (3.4-4.8); Alkaline Phosphatase 68 U/L (35-104); Anion Gap 13 (5-15); BUN 13 mg/dL (4-19); BUN/Creat Ratio 19.7 RATIO (10-20); Calcium,Total 9.2 mg/dL (7.6-11.0); Carbon Dioxide 23.6 mmol/L (21.0-32.0); Chloride 103 mmol/L (98-108); Creatinine, Serum 0.63 mg/dL (0.70-1.20); EST Glomerular Filtration Rate 98 (>60); Globulin 2.9 g/dL (2.2-4.2); Glucose 104 mg/dL (70-99); Protein, Total 7.2 g/dL (5.9-8.4); Sodium Level 140 mmol/L (133-145); Total Bilirubin 0.35 mg/dL (0.00-1.30)
[2025-04-08 15:54] LABS: CRP < 3.00 mg/L (0.0-3.0); LDH 158 U/L (84-246)
== END | disposition home or self-care (01) ==
LOC: LAB 08:26
PROVIDERS: PCP Internal Medicine; Referring Provider Internal Medicine Gastroenterology; Visit Provider Internal Medicine Gastroenterology
DX: R10.9 Unspecified abdominal pain (principal)
CPT/HCPCS: 36415; 74018; 80053; 83615; 85025; 85652; 86140

== ENCOUNTER 2025-06-13 12:28 | Emergency (ER) | payer MEDICARE, MEDICAID, SELFPAY ==
[2025-06-13] VITALS (7 sets, daily range): BP systolic 160–200; BP diastolic 58–81; PULSE 51–83; RESP 10–19; TEMP 36.4; O2SAT 94–100; BMI 32.0
--- NOTE | 2025-06-13 13:24 | ED.VIS.CHEST ---
HPI History of Present Illness Chief Complaint: Chest Pain Narrative Narrative: Patient is a 65-year-old female presenting emergency department for chest pain. Patient has past medical history of hypertension, dyslipidemia, back problems and Crohn's disease. Patient states that it started on . States that it twinges of chest pain. She states they come and go and last few seconds. Reports that on it was after she was working in the garden and she had a twinge of pain between her shoulder blades. States that since then it has ranged from midsternal to right-sided twinges. Reports a mild pressure in her chest right now. Denies any fever, chills, cough, shortness of breath, lower extremity edema. Denies any vomiting. Reports some nausea but states this is not different from her baseline with her Crohn's disease. [facility] Medical History Panic attack Preoperative cardiovascular examination Abnormal EKG LINDY on CPAP Wears glasses Post-menopausal History of Clostridium difficile infection History of steroid therapy Thyroid disease Arthritis High cholesterol Back pain Injury of back Difficulty swallowing Difficulty chewing History of ulceration Diverticulosis History of Crohn's disease Gastric reflux Former smoker CPAP (continuous positive airway pressure) dependence Shortness of breath on exertion History of stress test History of echocardiogram Hypertension Diarrhea Urinary frequency Hematuria Thyroid disease Pneumonia Osteopenia Neuropathy Gallstones H/O emotional problems Hx: UTI (urinary tract infection) Bone fracture Back problem Allergies Liver lesion Clostridioides difficile infection Sleep apnea PTSD (post-traumatic stress disorder) Lumbago Internal hemorrhoids Hypothyroidism Esophageal reflux Diverticulitis Depression Unstable angina Dyslipidemia Essential (primary) hypertension Home Medications ?Medication ?Instructions ?Recorded ?Last Taken ?Type lidocaine 4 % topical patch 1 patch topical DAILY PRN Pain 01/13/23 Unknown History Super Collagen & Vitamin C 1 tab PO DAILY 01/21/23 Unknown History spironolactone 25 mg tablet 25 mg PO PRN WATER RETENTION 02/17/23 Unknown History loratadine 10 mg tablet 10 mg PO DAILY PRN Inflammation 01/01/24 Unknown Rx Held on 04/27/24. #90 tabs Instructions: Order Changed Lactobacillus rhamnosus GG 10 1 cap PO DAILY #90 caps 03/11/24 Unknown Rx billion cell capsule (Culturelle) inulin 2 gram chewable tablet g PO 08/06/24 Unknown History (Fiber Gummies) aspirin 81 mg tablet,delayed 81 mg PO DAILY #90 tabs 08/09/24 Unknown Rx release (Ecotrin Low Strength) sennosides 8.6 mg-docusate sodium 1 tab-cap PO BID PRN 09/01/24 Unknown History 50 mg capsule (Senna Plus) dicyclomine 20 mg tablet 20 mg PO BID PRN abdominal 12/01/24 Unknown Rx discomfort #60 tabs pantoprazole 40 mg tablet,delayed 40 mg PO DAILY #90 TABLETS 12/01/24 Unknown Rx release alendronate 70 mg tablet 70 mg PO QWEEK #12 tabs 01/25/25 Unknown Rx atorvastatin 40 mg tablet 40 mg PO QHS CHOLESTEROL #90 tabs 01/25/25 Unknown Rx calcium 600 mg (as 1 tab PO DAILY #90 tabs 01/25/25 Unknown Rx carbonate)-vitamin D3 5 mcg (200 unit) tablet levothyroxine 75 mcg tablet 75 mcg PO DAILY #90 TABLETS 01/25/25 Unknown Rx magnesium oxide 400 mg PO QDAY #90 caps 01/25/25 Unknown Rx multivitamin with folic acid 400 1 tab PO DAILY #90 TABLETS 01/25/25 Unknown Rx mcg tablet (One Daily Essential) ustekinumab 90 mg/mL subcutaneous 90 mg subcut Q4W #1 mL 02/03/25 Unknown Rx syringe (Stelara) linaclotide 290 mcg capsule 290 mcg PO DAILY #90 caps 03/18/25 Unknown Rx (Linzess) fluticasone propionate 50 2 spray intranasal DAILY PRN 03/28/25 Unknown Rx mcg/actuation nasal ALLERGIES #16 grams spray,suspension atenolol 25 mg tablet 25 mg PO DAILY #90 TABLETS 04/18/25 Unknown Rx lisinopril 40 mg tablet 40 mg PO DAILY #90 tabs 04/18/25 Unknown Rx ondansetron 4 mg disintegrating 4 mg PO Q8H PRN PRN Nausea #30 tabs 05/24/25 Unknown Rx tablet clonazepam 0.5 mg tablet 0.5 mg PO QDAY PRN panic attack 06/13/25 Unknown History Allergy/AdvReac Type Severity Reaction Status Date / Time Penicillins (PCN) Allergy Unknown Verified 06/13/25 12:29 Tetracyclines AdvReac Nausea Verified 06/13/25 12:29 Family History Grandmother Bowel disease Myocardial infarction Hypertension Aunt Bowel disease Ovarian cancer Mother Diabetes High cholesterol CVA (cerebral vascular accident) Father Diabetes Heart disease Thyroid disorder Hypertension High cholesterol Myocardial infarction Grandmother Cancer pancreatic Brother Heart disease Other Anemia Colon cancer Surgical History History of cardiac catheterization H/O wrist surgery [place] teeth extracted Previous back surgery History of cholecystectomy History of hysterectomy Hx of section Social History household members: none current occupational status: disabled current occupation: multiple jobs - work related injury Smoking Status: Former smoker quit date: 10/27/21 pack-years: 3 alcohol intake: former substance use type: former substance user Date of last use: marijuana 09/2022 what type of physical activity do you participate in: none seatbelt use: always do you feel safe at home: Yes ROS ROS ED ROS Narrative See HPI EXAM Physical Exam Narrative Exam Narrative: Vital signs: Reviewed General: Alert and oriented. No acute distress HEENT: Head is normocephalic and atraumatic, sinuses nontender, pupils equal round and reactive. Nares are patent. Oropharynx and throat exams normal. Neck: Supple without lymphadenopathy nontender Cardiovascular: Regular rate and rhythm, no murmurs. No rubs or gallops. Normal S1 and S2 Respiratory: Clear to auscultation bilaterally. No wheezes, rales, rhonchi Abdominal: Soft and nontender. Normal bowel sounds. No guarding or rebound. Nonsurgical abdomen Extremities: No tenderness. No bruising. Normal range of motion. Normal sensation. Skin: No rash or redness. Neurological: Cranial nerves II through XII are grossly intact. Normal strength and sensation. Normal cerebellar function The rest of the physical exam is unremarkable Const Vital Signs: 06/13/25 12:28 06/13/25 12:29 06/13/25 13:23 Temperature 97.5 F L Temperature Source Temporal Pulse Rate 83 63 Respiratory Rate 19 H 16 Blood Pressure 198/81 H Blood Pressure Mean 120 Pulse Ox 99 95 Oxygen Delivery Method Room Air Room Air Room Air 06/13/25 13:28 06/13/25 14:00 06/13/25 15:15 Temperature Temperature Source Pulse Rate 51 L 53 L Respiratory Rate 10 L 17 Blood Pressure 200/77 H 161/58 H 160/71 H Blood Pressure Mean 118 92 100 Pulse Ox 94 100 100 Oxygen Delivery Method Room Air Heart Score History: Slightly/Non-Suspicious ECG: Normal Age: >/= 65 years Risk Factors: 1 or 2 Risk Factors Troponin: </= Normal Limit Score: 3 MDM MDM MDM Narrative Medical decision making narrative: Patient is a 65-year-old female presenting to the emergency department for intermittent chest pain. Patient was seen and examined. Vitals are stable. Patient resting bed comfortably no acute distress. EKG shows sinus bradycardia with first-degree AV block. No ischemic changes noted. CBC shows very mild leukocytosis of 12.1. Normal hemoglobin. BMP with no significant normalities. Initial troponin below 6, reflex also below 6. Chest x-ray reviewed by myself and shows no opacities, pneumothorax. Chest x-ray read by radiology shows no acute radiographic abnormalities. Low risk Heart Score. Patient is stable for outpatient management. She was updated on the findings. Patient discharged from the Emergency Department. I do not feel that the patient's evaluation reveals any acute reason for admission at this time. I instructed them to either follow-up with their primary care physician or promptly return to the Emergency Department for reevaluation should symptoms worsen or new symptoms develop. I explained what symptoms would indicate the need to return to the emergency department. Shared decision making was used. The patient voiced understanding of the treatment plan and is agreeable with it. Clinical impression Chest pain History & Record Review Discussion w/independent historian: Patient Lab Data Attestation: I reviewed the patient's lab results. Labs: Laboratory Results - last 24 hr 06/13/25 06/13/25 06/13/25 12:54 12:54 14:05 WBC Cancelled 12.1 H Corrected WBC Cancelled RBC Cancelled 4.42 Hgb Cancelled 13.9 Hct Cancelled 40.5 MCV Cancelled 91.6 MCH Cancelled 31.4 MCHC Cancelled 34.3 RDW Std Deviation Cancelled 40.1 RDW Coeff of Jessica Cancelled 11.9 Plt Count Cancelled 246 MPV Cancelled 9.6 Immature Gran % (Auto) Cancelled 0.200 Neut % (Auto) Cancelled 60.8 Lymph % (Auto) Cancelled 31.6 Wheeler % (Auto) Cancelled 5.3 Eos % (Auto) Cancelled 1.8 Baso % (Auto) Cancelled 0.3 Absolute Neuts (auto) Cancelled 7.4 Absolute Lymphs (auto) Cancelled 3.82 Total Counted Cancelled Neutrophils % (Manual) Cancelled Band Neutrophils % Cancelled Lymphocytes % (Manual) Cancelled Monocytes % (Manual) Cancelled Eosinophils % (Manual) Cancelled Basophils % (Manual) Cancelled Metamyelocytes % Cancelled Myelocytes % Cancelled Promyelocytes % Cancelled Blast Cells % Cancelled Plasma Cell % (Manual) Cancelled Other Cells % Cancelled Nucleated RBC % Cancelled 0 Nucleated RBCs/100 WBC Cancelled Differential Comment Cancelled Diff Path Review Cancelled Hypersegmented Neuts Cancelled Atypical Lymphocytes Cancelled Reactive Lymphocytes Cancelled Smudge Cells Cancelled Toxic Granulation Cancelled Toxic Vacuolation Cancelled Dohle Bodies Cancelled Tanja Rods Cancelled Platelet Estimate Cancelled Plt Morphology Comment Cancelled RBC Morphology Cancelled Cancelled Polychromasia Cancelled Hypochromasia Cancelled Basophilic Stippling Cancelled Anisocytosis Cancelled Microcytosis Cancelled Macrocytosis Cancelled Spherocytes Cancelled Sickle Cells Cancelled Target Cells Cancelled Tear Drop Cells Cancelled Ovalocytes Cancelled Stomatocytes Cancelled [place] Bodies Cancelled Odin Cells Cancelled Bite Cells Cancelled Crenated Cell Cancelled Acanthocytes (Spur) Cancelled Rouleaux Cancelled Schistocytes Cancelled Sodium 141 Potassium 3.9 Chloride 105 Carbon Dioxide 21.9 Anion Gap 13 BUN 12 Creatinine 0.64 L Estim Creat Clear Calc 62.31 Est GFR (MDRD) Non-Af 97 BUN/Creatinine Ratio 19.1 Glucose 93 Calcium 9.5 Troponin T High Sens < 6 Troponin T Hi Sens 2 Hr 06/13/25 15:30 WBC Corrected WBC RBC Hgb Hct MCV MCH MCHC RDW Std Deviation RDW Coeff of Jessica Plt Count MPV Immature Gran % (Auto) Neut % (Auto) Lymph % (Auto) Wheeler % (Auto) Eos % (Auto) Baso % (Auto) Absolute Neuts (auto) Absolute Lymphs (auto) Total Counted Neutrophils % (Manual) Band Neutrophils % Lymphocytes % (Manual) Monocytes % (Manual) Eosinophils % (Manual) Basophils % (Manual) Metamyelocytes % Myelocytes % Promyelocytes % Blast Cells % Plasma Cell % (Manual) Other Cells % Nucleated RBC % Nucleated RBCs/100 WBC Differential Comment Diff Path Review Hypersegmented Neuts Atypical Lymphocytes Reactive Lymphocytes Smudge Cells Toxic Granulation Toxic Vacuolation Dohle Bodies Tanja Rods Platelet Estimate Plt Morphology Comment RBC Morphology Polychromasia Hypochromasia Basophilic Stippling Anisocytosis Microcytosis Macrocytosis Spherocytes Sickle Cells Target Cells Tear Drop Cells Ovalocytes Stomatocytes [place] Bodies Odin Cells Bite Cells Crenated Cell Acanthocytes (Spur) Rouleaux Schistocytes Sodium Potassium Chloride Carbon Dioxide Anion Gap BUN Creatinine Estim Creat Clear Calc Est GFR (MDRD) Non-Af BUN/Creatinine Ratio Glucose Calcium Troponin T High Sens Troponin T Hi Sens 2 Hr < 6 Radiography Chest X-Ray - ED: Read by ED Physician, Normal, No Acute Disease and No Infiltrates Diagnostic Testing: Clinical Impression(s) from Imaging Studies Chest X-Ray 06/13/25 13:50 IMPRESSION: NO ACUTE FINDINGS. Reading Location: [facility] Rhythm Strip Rhythm Strip: Sinus Rhythm Rate: 56 Ectopy: None Discharge Plan Triage Chief Complaint: Chest Pain ED Provider: Mirella Card Dx/Rx/DC Orders Instructions: ED Chest Pain, Uncertain Cause Prescriptions: No Action spironolactone 25 mg tablet 25 mg PO PRN Super Collagen & Vitamin C 1 tab PO DAILY lidocaine 4 % adhesive patch,medicated 1 patch topical DAILY PRN (Reason: Pain) Fiber Gummies 2 gram tablet,chewable PO Senna Plus 8.6-50 mg capsule 1 tab-cap PO BID PRN alendronate 70 mg tablet 70 mg PO QWEEK Qty: 12 1RF atorvastatin 40 mg tablet 40 mg PO QHS Qty: 90 1RF calcium carbonate-vitamin D3 600 mg-5 mcg (200 unit) tablet 1 tab PO DAILY Qty: 90 1RF levothyroxine 75 mcg tablet 75 mcg PO DAILY Qty: 90 1RF magnesium oxide 400 mg magnesium capsule 400 mg PO QDAY Qty: 90 1RF multivitamin with folic acid [One Daily Essential] 400 mcg tablet 1 tab PO DAILY Qty: 90 1RF clonazepam 0.5 mg tablet 0.5 mg PO QDAY PRN (Reason: panic attack) loratadine 10 mg tablet 10 mg PO DAILY PRN (Reason: Inflammation) Qty: 90 1RF Culturelle 10 billion cell capsule 1 cap PO DAILY Qty: 90 3RF aspirin [Ecotrin Low Strength] 81 mg tablet,delayed release (DR/EC) 81 mg PO DAILY Qty: 90 1RF pantoprazole 40 mg tablet,delayed release (DR/EC) 40 mg PO DAILY Qty: 90 1RF dicyclomine 20 mg tablet 20 mg PO BID PRN (Reason: abdominal discomfort) Qty: 60 0RF Stelara 90 mg/mL syringe 90 mg subcut Q4W Qty: 1 11RF Linzess 290 mcg capsule 290 mcg PO DAILY Qty: 90 2RF fluticasone propionate 50 mcg/actuation spray,suspension 2 spray INTRANASAL DAILY PRN (Reason: ALLERGIES) Qty: 16 2RF atenolol 25 mg tablet 25 mg PO DAILY Qty: 90 1RF Rx Instructions: prn per pt lisinopril 40 mg tablet 40 mg PO DAILY Qty: 90 1RF ondansetron 4 mg tablet,disintegrating 4 mg PO Q8H PRN PRN (Reason: Nausea) Qty: 30 2RF Primary Care Provider: Jessica Buenrostro Referrals: Jessica Buenrostro MD [Primary Care Provider] - 2 Days Activity Restrictions/Additional Instructions: Your evaluation in the Emergency Department did not reveal any acute reason for admission. However, I want to emphasize that you may be early in the course of a disease process or illness even if it is not present. For this reason you should follow-up within 24 hours for reevaluation with either your primary care physician or if necessary back here in the Emergency Department. You should return to the Emergency Department immediately if your symptoms worsen or new symptoms develop. Print Language: Indonesian Disposition Disposition: Home, Self Care
--- NOTE | 2025-06-13 13:30 | EKG12_ITS ---
Test Reason : CP Blood Pressure : */* mmHG Vent. Rate : 53 BPM Atrial Rate : 53 BPM P-R Int : 230 ms QRS Dur : 82 ms QT Int : 434 ms P-R-T Axes : 38 36 48 degrees QTcB Int : 407 ms Sinus bradycardia with 1st degree A-V block Low voltage QRS Borderline ECG Confirmed by CAROLYN GREWAL, RAIZA ([id number]), loan expeditor MARIA C HEIN ([id number]) on 06/14/2025 8:46:41 AM Referred By: Confirmed By: RAIZA LEON MD
--- NOTE | 2025-06-13 13:50 | RAD_ITS ---
PROCEDURE: CHEST PA AND LATERAL 06/13/2025 REASON FOR EXAM: CHEST PAIN TECHNIQUE: CHEST PA AND LATERAL COMPARISON: None FINDINGS: Hardware: EKG electrodes are seen. Heart: The heart size is normal. Mediastinum: The mediastinal contour is unremarkable. Lungs: Hyperinflation. The lungs are clear. Bones: Degenerative changes are identified within the thoracic spine. RAD/Chest PA and Lateral IMPRESSION: NO ACUTE FINDINGS. Reading Location: [id number]
[2025-06-13 14:05] LABS: Anion Gap 13 (5-15); BUN 12 mg/dL (4-19); BUN/Creat Ratio 19.1 RATIO (10-20); Calcium,Total 9.5 mg/dL (7.6-11.0); Carbon Dioxide 21.9 mmol/L (21.0-32.0); Chloride 105 mmol/L (98-108); Estimated Creatinine Clearance 62.31 ml/min (50-250); Glucose 93 mg/dL (70-99); Potassium 3.9 mmol/L (3.3-5.1); Troponin T High Sensitivity < 6 ng/L (<=14)
[2025-06-13 14:18] LABS: Hematocrit 40.5 % (37-47); Hemoglobin 13.9 g/dL (12.0-15.0); Immature Granulocytes Count 0.030 X10^3/uL (0.0-0.0); Mean Corp Hgb Conc 34.3 g/dL (32-36); Mean Corpuscular Volume 91.6 fL (81-99); Mean Platelet Vol. 9.6 fl (6.2-12.0); NRBC Flagged by Analyzer 0 % (0-5); Platelet Count 246 K/mm3 (150-450); RBC Distribution Width CV 11.9 % (11.6-14.6); RBC Distribution Width SD 40.1 fl (35.1-43.9); Red Blood Count 4.42 M/mm3 (4.2-5.4); White Blood Count 12.1 K/mm3 (4.4-11.0)
[2025-06-13 16:23] LABS: Troponin T High Sens 2 HR < 6 ng/L (<=14)
== END 2025-06-13 16:54 | disposition home or self-care (01) ==
PROVIDERS: Emergency Provider Student in an Organized Health Care Education/Training Program; PCP Internal Medicine; Visit Provider Student in an Organized Health Care Education/Training Program
DX: R07.9 Chest pain, unspecified (principal); I10 Essential (primary) hypertension; Z79.82 Long term (current) use of aspirin; Z79.899 Other long term (current) drug therapy; Z87.891 Personal history of nicotine dependence; Z82.49 Family history of ischemic heart disease and other diseases of the circulatory system
CPT/HCPCS: 71046; 80048; 84484; 85025; 93005; 99284; A4216

== ENCOUNTER → 2025-09-01 | Outpatient (CLI) | payer MEDICARE, MEDICAID, SELFPAY ==
[2025-09-01 10:41] LABS: AST(SGOT) 21 U/L (<=31); Alanine Aminotransfer ALT/SGPT 13 U/L (<=34); Albumin, Serum 4.2 g/dL (3.4-4.8); Alkaline Phosphatase 68 U/L (35-104); Anion Gap 11 (5-15); BUN 10 mg/dL (4-19); BUN/Creat Ratio 15.6 RATIO (10-20); Calcium,Total 9.4 mg/dL (7.6-11.0); Carbon Dioxide 29.3 mmol/L (21.0-32.0); Chloride 101 mmol/L (98-108); Cholesterol 227 mg/dL (<=200); Globulin 3.0 g/dL (2.2-4.2); Glucose 105 mg/dL (70-99); Low Density Lipoprotein Calc. 136 mg/dL; Potassium 4.0 mmol/L (3.3-5.1); Triglycerides 229 mg/dL; Very Low Density Lipoprotein 46 mg/dL (5-40); cholesterol:hdl ratio screen 4.55
== END | disposition home or self-care (01) ==
LOC: LAB 09:37
PROVIDERS: PCP Internal Medicine; Referring Provider Physician Assistant Medical; Visit Provider Physician Assistant Medical
DX: E78.5 Hyperlipidemia, unspecified (principal)
CPT/HCPCS: 36415; 80053; 80061

== ENCOUNTER → 2025-09-03 | Outpatient (CLI) | payer MEDICARE, MEDICAID, SELFPAY ==
--- OUTSIDE RECORDS SUMMARY | 2025-09-03 07:02 | XMS RPT_ITS | CCD ---
Author Organization [facility] Care Team Providers Care Insurance Sales Assistant Name Role Phone AMANDA ALBARRAN Unavailable Unavailable COLLIER D.OSoheila, BLANQUITA Karimi Unavailable Unavail able COLLIER D.OSoheila, BLANQUITA Karimi Unavailable Unavail able Blanquita Collier Unavailable Unavailable COLLIER D.OSoheila, BLANQUITA Karimi Unavailable Unavail able Blanquita Collier Unavailable Unavailable Maria Del Carmen Leong MD Primary Care Provider Maria Del Carmen Leong MD Primary Care Provider Maria Del Carmen Leong MD Primary Care Provider Maria Del Carmen Leong MD Primary Care Provider Dr. Kashmir Leong Primary Care Provider Dr. Kashmir Leong Referring Provider Dr. Arthur Bull Attending Provider Dr. Kashmir Leong Primary Care Provider [phone] Dr. Kashmir Leong Referring Provider Dr. Arthur Bull Attending Provider Dr. Henry Weiner Emergency Provider [phone] Care Physician, No Primary Primary Care Provider Unavailable Dr. Tiffany Muñoz Admit Provider Dr. Tiffany Muñoz Other Provider Dr. Tiffany Muñoz Attending Provider Dr. Andreas Buenrostro Primary Care Provider Katerin Jacobs Attending Provider Unavailable Care Physician, No Primary Referring Provider Un available Dr. Andreas Buenrostro Attending Provider [phone] Dr. Andreas Buenrostro Referring Provider [phone] HARESH Cuadra Attending Provider Dr. Tiffany Muñoz Referring Provider Dr. Paul Maldonado Attending Provider [phone] Kashmir Leong Primary Care Provider Dr. Kashmir Leong Referring Provider Friend, Dr. Gibson Attending Provider [phone] Dr. Henry Weiner Emergency Provider Care Physician, No Primary Primary Care Provider Unavailable Dr. Tiffany Muñoz Admit Provider Dr. Tiffany Muñoz Referring Provider Korjose, Dr. Tiffany Heredia Other Provider Wanda, Dr. Tiffany Heredia Attending Provider Dr. Andreas Buenrostro Primary Care Provider Katerin Jacobs Attending Provider Unavailable Care Physician, No Primary Referring Provider Un available Dr. Andreas Buenrostro Attending Provider [phone] Dr. Andreas Buenrostro Referring Provider [phone] HARESH Cuadra Attending Provider Dr. Paul Maldonado Attending Provider [phone] Raoul Castaneda Attending Provider [phone] HARESH Cuello Attending Provider Trisha Carroll Attending Provider Unavailable Billy, Dr. Gibson Other Provider [phone] Kashmir Leong Referring Provider Billy, Dr. Gibson Attending Provider [phone] Dr. Andreas Buenrostro Primary Care Provider Dr. Andreas Buenrostro Attending Provider 1(330) Dr. Andreas Buenrostro Referring Provider 1(330) HARESH Cuello Attending Provider [phone] Andreas Buenrostro Primary Care Provider Dr. Andreas Buenrostro Referring Provider [phone]) HARESH Cuello Attending Provider [phone] Andreas Buenrostro Attending Provider 1(330) Dr. Arthur Bull Attending Provider 1(330) Dr. Andreas Buenrostro Primary Care Provider Dr. Andreas Buenrostro Referring Provider 1(330) Dr. Andreas Buenrostro Primary Care Provider Dr. Andreas Buenrostro Attending Provider 1(330) Dr. Andreas Buenrostro Referring Provider 1(330) Dr. Arthur Bull Attending Provider 1(330) Maria Del Carmen Leong MD Primary Care Provider Dr. Andreas Buenrostro Primary Care Provider Dr. Andreas Buenrostro Referring Provider 1(330) Dr. Andreas Buenrostro Attending Provider [phone]) Podlogar DIRECTOR REGULATORY AFFAIRS.REDIPPER, Thao Unavailable Christina DIRECTOR REGULATORY AFFAIRS.REDIPPER, Tracy Unavailable Dr. Andreas Buenrostro MD Primary Care Provider [phone] Dr. Andreas Buenrostro MD Attending Provider Dr. Andreas Buenrostro MD Referring Provider Dr. Arthur Bull DO Attending Provider Dr. Arthur Bull DO Referring Provider KELIN CONRAD Attending Unavailable KELIN CONRAD Referring Unavailable Dr. Andreas Buenrostro MD Primary Care Provider [phone] Dr. Doris Buenrostro MDia Referring Provider Porter GREWAL, Dr. Lopez Attending Provider Kyaw GREWAL, Dr. Vu Emergency Provider Unavailab vamsi Buenrostro MD, Dr. Lpoez Primary Care Provider [phone] Billy KAN, Dr. Gibson Attending Provider Friend , Dr. Gibson Referring Provider Porter GREWAL, Dr. Lopez Referring Provider Kyaw GREWAL, Dr. Vu Attending Provider Unavailab le PORTER, ANDREAS G Primary Care Unavailable LUBA CRANE Attending Unavailable Porter GREWAL, Dr. Lopez Primary Care Physician Billy KAN, Dr. Gibson Attending Physician [phone] Porter GREWAL, Dr. Lopez Attending Physician [phone] Kyaw GREWAL, Dr. Vu Attending Physician Unavaila tootie Card MD, Dr. Vu Emergency Department Physici an Unavailable Hesston, Andreas Primary Care Unavailable Porter, Andreas Attending Unavailable Porter, Andreas Referring Unavailable Porter, Andreas Primary Care Unavailable FriendArthur Attending Unavailable Porter, Andreas Referring Unavailable Potrer, Andreas Primary Care Unavailable Porter, Andreas Attending Unavailable Hesston, Andreas Referring Unavailable Hesston, Andreas Primary Care Unavailable Porter, Andreas Referring Unavailable Trisha Johnston Attending Unavail able Mirella Card Attending Unavailable Porter, Andreas Primary Care Unavailable Porter, Andreas Primary Care Unavailable Trisha Johnston Attending Unavail able Trisha Johnston Referring Unavail able Porter, Andreas Primary Care Unavailable FriendArthur Attending Unavailable Friend, Arthur Referring Unavailable Hesston, Andreas Primary Care Unavailable Friend, Arthur Attending Unavailable Friend, Arthur Referring Unavailable Hesston, Andreas Primary Care Unavailable Elizabeth Gross Attending Unavailable Hesston, Andreas Referring Unavailable Hesston, Andreas Primary Care Unavailable Hesston, Andreas Attending Unavailable Hesston, Andreas Referring Unavailable Hesston, Andreas Primary Care Unavailable Friend, Arthur Attending Unavailable Porter, Andreas Referring Unavailable Hesston, Andreas Primary Care Unavailable Hesston, Andreas Attending Unavailable Porter, Andreas Referring Unavailable Allergies Allergy Classification Reported Allergen(s) Allergy Type Date of Onset Reaction(s) Facility (20 sources) nickel; Translations: [NICKEL] Drug Allergy 7 Rash [facility] (17 sources) Penicillins; Translations: [PENICILLINS] Drug Allergy 6 Intolerance [facility] (20 sources) Seasonal allergy; Translations: [SEASONAL ALLERGIES] Allergy to substance 6 Unknown [facility] (9 sources) Simvastatin Drug Allergy 8 Myalgia [facility] Work Phone: (20 sources) Tetracycline; Translations: [TETRACYCLINE] Drug Allergy 4 GI Upset, Other: See Comments [facility] (20 sources) Penicillins Drug Allergy 6 Intolerance [facility] (20 sources) Penicillins Allergy to substance 3 Unknown [facility] (20 sources) Tetracyclines Propensity to adverse reactions 3 Nausea [facility] (4 sources) Penicillins Drug Allergy 6 Intolerance [facility] (1 source) Penicillins Drug allergy (disorder) 5 [facility] (1 source) Tetracyclines Drug allergy (disorder) 5 [facility] (1 source) Seasonal Allergies: Uncoded; Translations: [Seasonal Allergies: Uncoded] Propensity to adverse reactions (disorder) 5 [facility] Medications Current Medications Medication Drug Class(es) Dates Sig (Normalized) Sig (Original) bifidobacterium animalis [id number] unt / bifidobacterium longum [id number] unt / lactobacillus acidophilus [id number] unt oral capsule (20 sources) Start: 09-02-2019 take 1 capsule by mouth once daily FLORAJEN3 460 mg (7.5-6- 1.5 bill. cell) cap TAKE 1 CAPSULE BY MOUTH EVERY DAY 30 capsule 2 09/02/2019 Active Comment on above: TAKE 1 CAPSULE BY MO [facility] EVERY DAY bisacodyl 5 mg delayed release oral tablet (20 sources) Stimulant Laxative Start: 03-11-2022 Bisacodyl (DULCOLAX) 5 mg tab Indications: Crohn's disease involving terminal ileum (HCC) , Sigmoid diverticulitis Use as directed for Miralax / Gatorade Bowel Prep Kit 4 tablet 03/11/2022 Active Comment on above: Use as directed for Miralax / Gatorade Bowel Prep Kit clonazePAM 0.5 mg oral tablet (5 sources) Benzodiazepine Start: 06-13-2025 take 1 tablet by mouth once daily as needed Clonazepam 0.5 mg tablet Active 0.5 mg PO daily as needed for panic attack June 13, 2025 12:00am Complies with drug therapy Start: 04-20-2025 take 1 tablet by sarah th every twenty-four hours as needed clonazePAM (KLONOPIN) 0.5 mg tablet Take 0.5 mg by mouth at bedtime as needed for anxiety. 04/20/2025 Active collagen/biotin/ascorbic aci d (COLLAGEN 1500 PLUS C ORAL) (20 sources) collagen/biotin/ ascorbic acid (COLLAGEN 1500 PLUS C ORAL) Take by mouth. Active collagen/biotin/ ascorbic acid (COLLAGEN 1500 PLUS C ORAL) Take by mouth. 0 Active Comment on above: Take by mouth. COMPOUNDED PRESCRIPTION (20 sources) Start: 06-25-2019 COMPOUNDED PRESCRIPTION Indications: LINDY (obstructive sleep apnea) BIPAP 13/9, mask, supplies, and tubing 1 Device 06/25/2019 Active Start: 06-25-2019 COMPOUNDED PRE SCRIPTION Indications: LINDY (obstructive sleep apnea) BIPAP 13/9, mask, supplies, and tubing 1 Device 0 06/25/2019 Active Start: 06-24-2019 COMPOUNDED PRE SCRIPTION Indications: LINDY (obstructive sleep apnea) CPAP at 13/9 1 Device 06/24/2019 Active Start: 06-24-2019 COMPOUNDED PRE SCRIPTION Indications: LINDY (obstructive sleep apnea) CPAP at 139 1 Device 0 06/24/2019 Active Comment on above: CPAP at 09/07 BIPAP 13/9, mask, ritter pplies, and tubing dicyclomine hydrochloride 20 mg oral tablet (20 sources) Anticholinergic Start: 12-01-19 take 1 tablet by mouth twice daily as needed Dicyclomine 20 mg tablet Active 20 mg PO TWICE A DAY as needed for abdominal discomfort 60 0 December 01, 2024 11:07am Complies with drug therapy Start: 06-13-2023 End: 07-18-2023 take 1 tablet by mouth twice daily as needed Dicyclomine 20 mg tablet Discontinued 20 mg PO TWICE A DAY as needed for abdominal discomfort 60 2 June 13, 2023 2:20pm July 18, 2023 8:11am Start: 05-01-2023 End: 06-13-2023 take 1 tablet by mouth once daily Dicyclomine 20 mg tablet Discontinued 20 mg PO DAILY May 01, 2023 12:00am June 13, 2023 2:20pm Start: 01-20-2023 docusate sodium 50 mg / sennosides, shelter 8.6 mg oral capsule (6 sources) Start: 09-01-2024 Sennosides-Docusate Sodium (Senna Plus) 8.6-50 mg capsule Active 1 NMA PO TWICE A DAY as needed September 01, 2024 1:00am Complies with drug therapy enteric contrast (will be provided with radiology test) (1 source) Start: 04-22-2022 End: 04-23-2022 enteric contrast (will be provided with radiology test) Indications: Left lower quadrant abdominal pain , RLQ abdominal pain For CT ABD/PEL W IVCON Routine order Administer, As Directed One Time Only, via Oral, Rectal, both Oral and Rectal, Enteric Tube, Stoma or Indwelling Catheter, Enteric Contrast as designated per enteric contrast guidelines 1 Each 0 04/22/2022 04/23/2022 Active Comment on above: For CT ABD/PEL W IVC ON Routine order Administer, As Directed One Time Only, via Oral, Rectal, both Oral and Rectal, Enteric Tube, Stoma or Indwelling Catheter, Enteric Contrast as designated per enteric contrast guidelines fluconazole 150 mg oral tablet (1 source) Azole Antifungal Start: 04-22-2022 End: 04-22-2022 fluconazole (DIFLUCAN) 150 mg tablet Indications: Vaginal itching Take 1 tablet by mouth one time only for 1 dose. Repeat in 3 days as needed. 2 tablet 0 04/22/2022 04/22/2022 Active Comment on above: Take 1 tablet by [facility] one time only for 1 dose. Repeat in 3 days as needed. FLUoxetine 20 mg oral capsule (4 sources) Serotonin Reuptake Inhibitor Start: 07-26-2025 take 2 capsules by mouth once daily Start: 06-17-2025 End: 07-26-2025 take 1 capsule by mouth once daily Fluoxetine 20 mg capsule Discontinued 20 mg PO daily 90 June 30, 2025 12:52pm July 26, 2025 8:49am fluticasone propionate 0.05 mg/actuat metered dose nasal spray (20 sources) Corticosteroid Start: 12-28-2022 End: 07-18-2023 Fluticasone Propionate Active 2 SPRAY INTRANASAL DAILY July 18, 2023 8:30am Start: 01-23-2022 End: 06-24-2025 Fluticasone Propionate 50 mc g/actuation spray,suspension Active 2 NMA INTRANASAL DAILY as needed for ALLERGIES 12 12June 24, 2025 8:29am Complies with drug therapy Start: 05-30-2020 End: 01-23-2022 take 2 spray(s) by mouth once daily fluticasone (FLONASE) 50 mcg/actuation nasal spray Indications: Seasonal allergies Use 2 Sprays in each nostril once daily. Rinse mouth after use. 1 Bottle 5 05/30/2020 01/23/2022 Discontinued Comment on above: Use 2 Sprays in each nostril once daily. Rinse mouth after use. Gatorade Sports Drink (20 sources) Start: 03-11-2022 Gatorade Sports Drink Indications: Crohn's disease involving terminal ileum (HCC) , Sigmoid diverticulitis Use as directed for Miralax / Gatorade Bowel Prep Kit 03/11/2022 Active Start: 03-11-2022 Gatorade Sport s Drink Indications: Crohn's disease involving terminal ileum (HCC) , Sigmoid diverticulitis Use as directed for Miralax / Gatorade Bowel Prep Kit 0 03/11/2022 Active Comment on above: Use as directed for Miralax / Gatorade Bowel Prep Kit Incontinence Pad, Liner, Disp pads (20 sources) Start: 021 Incontinence Pad, Liner, Disp pads Indications: Mixed incontinence urge and stress 1 Units twice daily. 60 Each 11 08/08/2021 Active Comment on above: 1 Units twice daily. inulin 2000 mg chewable tablet (6 sources) Start: 024 Inulin (Fiber Gummies) 2 gram tablet,chewable Active g PO August 06, 2024 12:00am Complies with drug therapy iv contrast (will be provided with radiology test) (1 source) Start: End: iv contrast (will be provided with radiology test) Indications: Left lower quadrant abdominal pain , RLQ abdominal pain CT ABD/PEL -Inject, intravenously, once for 1 dose.No IV access, insert saline lock prior to the beginning of sedation, infusion, injection of imaging exam. Discontinue saline lock post exam. If Pt. has a central line or IVAD, may access for administration according to line specific nursing protocol. Once exam is complete flush line and de-access according to line specific nursing protocol in the CT contrast administration guidelines link. 1 Each 0 04/22/2022 04/23/2022 Active Comment on above: CT ABD/PEL -Inject, intravenously, once for 1 dose.No IV access, insert saline lock prior to the beginning of sedation, infusion, injection of imaging exam. Discontinue saline lock post exam. If Pt. has a central line or IVAD, may access for administration according to line specific nursing protocol. Once exam is complete flush line and de-access according to line specific nursing protocol in the CT contrast administration guidelines link. lactobacillus rhamnosus gg [id number] unt oral capsule (18 sources) Start: 023 End: 024 take 10 capsules by mouth once daily Lactobacillus Rhamnosus Gg (Culturelle) 10 billion cell capsule Active 1 NMA PO DAILY 90 March 11, 2024 2:19pm Complies with drug therapy Start: 04-01-2023 loratadine 10 mg oral tablet (20 sources) Start: 07-26-2025 take 1 tablet by mouth once daily as needed Loratadine 10 mg tablet Active 10 mg PO DAILY as needed for Inflammation 90 July 26, 2025 12:30pm Complies with drug therapy Start: 07-17-2020 End: 07-26-2025 take 1 tablet by mouth once daily Loratadine 10 mg tablet Discontinued 10 mg PO DAILY December 28, 2022 1:00am January 21, 2023 2:52pm ALLERGIES Comment on above: Take 1 tablet by sarah once daily. magnesium oxide 400 mg oral capsule (14 sources) Start: 07-26-2025 take 1 capsule by mouth once daily Start: 04-22-2025 take 1 tablet by sarah th once daily magnesium oxide (MAG-OX) 400 mg (241.3 mg magnesium) tablet Take 400 mg by mouth once daily. 04/22/2025 Active Start: 08-06-2024 End: 07-26-2025 take 1 capsule by mouth once daily Magnesium Oxide 400 mg magnesium capsule Discontinued 400 mg PO daily 90 January 25, 2025 11:48am July 26, 2025 12:20pm mesalamine 500 mg extended release oral capsule (20 sources) Aminosalicylate Start: 11-04-2022 Mesalamine (PE NTASA) 500 mg CR capsule Indications: Crohn's disease involving terminal ileum (HCC) Take two capsules twice a day 360 capsule 11/04/2022 Active Start: 05-30-2020 End: 11-04-2022 take 2 capsules by mouth three times daily Mesalamine (PENTASA) 500 mg CR capsule Indications: Crohn's disease involving terminal ileum (HCC) Take 2 capsules by mouth three times daily. 540 capsule 3 05/30/2020 03/19/2022 Discontinued Comment on above: Take 2 capsules by m out three times daily. Take two capsules tw ice a day Multivitamin With Folic Acid (One Daily Essential) 400 mcg tablet (20 sources) Start: 01-25-2025 Multivitamin With Folic Acid (One Daily Essential) 400 mcg tablet Active 1 {tbl} PO DAILY 90 January 25, 2025 11:48am Complies with drug therapy Start: 01-25-2025 Multivitamin W ith Folic Acid (One Daily Essential) 400 mcg tablet Active 1 {tbl} PO DAILY 90 January 25, 2025 11:48am Start: 01-25-2025 Multivitamin W ith Folic Acid (One Daily Essential) 400 mcg tablet Active 1 {tbl} PO DAILY January 25, 2025 11:48am Start: 12-08-2024 End: 01-25-2025 Multivitamin With Folic Acid (One Daily Essential) 400 mcg tablet Discontinued 1 {tbl} PO DAILY 90 December 08, 2024 5:00pm January 25, 2025 12:07pm Start: 12-08-2024 End: 01-25-2025 Multivitamin With Folic Acid (One Daily Essential) 400 mcg tablet Discontinued 1 {tbl} PO DAILY December 08, 2024 5:00pm January 25, 2025 12:07pm Start: 08-06-2024 End: 12-08-2024 Multivitamin With Folic Acid (One Daily Essential) 400 mcg tablet Discontinued 1 {tbl} PO DAILY August 06, 2024 8:03am December 08, 2024 5:00pm Start: 08-06-2024 End: 12-08-2024 Multivitamin With Folic Acid (One Daily Essential) 400 mcg tablet Discontinued 1 {tbl} PO DAILY August 06, 2024 8:03am December 08, 2024 5:00pm Start: 01-23-2024 End: 08-06-2024 Multivitamin With Folic Acid (One Daily Essential) 400 mcg tablet Discontinued 1 {tbl} PO DAILY January 23, 2024 8:12am August 06, 2024 8:05am Start: 01-23-2024 End: 08-06-2024 Multivitamin With Folic Acid (One Daily Essential) 400 mcg tablet Discontinued 1 {tbl} PO DAILY January 23, 2024 8:12am August 06, 2024 8:05am Start: 01-23-2024 take 1 tablet by sarah th once daily Multivitamin With Folic Acid (One Daily Essential) 400 mcg tablet Active 1 TABLET PO DAILY January 23, 2024 8:12am Start: 10-28-2023 End: 01-23-2024 take 1 tablet by mouth once daily Multivitamin With Folic Acid (One Daily Essential) 400 mcg tablet Discontinued 0 .ROUTE .COMPLEX 90 October 28, 2023 11:36am January 23, 2024 8:13am 1 TAB ORALLY DAILY FOR SUPPLEMENT Start: 10-28-2023 End: 01-23-2024 take 1 tablet by mouth once daily Multivitamin With Folic Acid (One Daily Essential) 400 mcg tablet Discontinued 0 .ROUTE .COMPLEX October 28, 2023 11:36am January 23, 2024 8:13am 1 TAB ORALLY DAILY FOR SUPPLEMENT Start: 10-28-2023 take 1 tablet by sarah th once daily Multivitamin With Folic Acid (One Daily Essential) 400 mcg tablet Active 0 .ROUTE .COMPLEX October 28, 2023 10:36am 1 TAB ORALLY DAILY FOR SUPPLEMENT nitrofurantoin, macrocrystals 25 mg / nitrofurantoin, monohydrate 75 mg oral capsule (4 sources) Nitrofuran Antibacterial Start: 04-22-2022 End: 04-27-2022 take 1 capsule by mouth twice daily nitrofurantoin monohydrate and macrocrystal (MACROBID) 100 mg capsule Indications: Pelvic pain Take 1 capsule by mouth twice daily for 5 days. 10 capsule 0 04/22/2022 04/27/2022 Active Comment on above: Take 1 capsule by mo [facility] twice daily for 5 days. Super Collagen & Vitamin C (15 sources) Start: 01-21-2023 Super Collagen & Vitamin C Active 1 {tbl} PO DAILY January 21, 2023 12:00am Complies with drug therapy Start: 01-21-2023 Super Collagen & Vitamin C Active 1 {tbl} PO DAILY January 21, 2023 12:00am Start: 01-21-2023 take 1 tablet by sarah three times daily Super Collagen & Vitamin C Active 1 TABLET PO THREE TIMES A DAY January 20, 2023 11:00pm Start: 01-21-2023 take 1 tablet by sarah three times daily Super Collagen & Vitamin C Active 1 TABLET PO THREE TIMES A DAY January 21, 2023 12:00am Start: 01-21-2023 Super Collagen & Vitamin C Active PO THREE TIMES A DAY January 21, 2023 12:00am THEREMS tablet (20 sources) Start: 11-04-2022 take 1 tablet by sarah once daily THEREMS tablet Indications: Crohn's disease involving terminal ileum (HCC) Take 1 tablet by mouth once daily. 90 tablet 11/04/2022 Active Start: 11-04-2022 take 1 tablet by sarah th once daily THEREMS tablet Indications: Crohn's disease involving terminal ileum (HCC) Take 1 tablet by mouth once daily. 90 tablet 0 11/04/2022 Active Start: 08-15-2022 End: 11-04-2022 take 1 tablet by mouth once daily THEREMS tablet Indications: Crohn's disease involving terminal ileum (HCC) Take 1 tablet by mouth once daily. 90 tablet 0 08/15/2022 11/04/2022 Discontinued Start: 08-15-2022 take 1 tablet by sarah once daily THEREMS tablet Indications: Crohn's disease involving terminal ileum (HCC) Take 1 tablet by mouth once daily. 90 tablet 0 08/15/2022 Active Start: 03-06-2022 End: 08-15-2022 take 1 tablet by mouth once daily THEREMS tablet Indications: Crohn's disease involving terminal ileum (HCC) Take 1 tablet by mouth once daily. 90 tablet 0 03/06/2022 08/15/2022 Discontinued Start: 03-06-2022 take 1 tablet by sarah th once daily THEREMS tablet Indications: Crohn's disease involving terminal ileum (HCC) Take 1 tablet by mouth once daily. 90 tablet 0 03/06/2022 Active Start: 06-18-2021 End: 03-06-2022 take 1 tablet by mouth once daily THEREMS tablet Indications: Crohn's disease involving terminal ileum (HCC) Take 1 tablet by mouth once daily. 90 tablet 1 06/18/2021 03/06/2022 Discontinued Start: 06-18-2021 take 1 tablet by sarah th once daily THEREMS tablet Indications: Crohn's disease involving terminal ileum (HCC) Take 1 tablet by mouth once daily. 90 tablet 1 06/18/2021 Active Start: 07-15-2020 End: 06-15-2021 take 1 tablet by mouth once daily THEREMS tablet Indications: Crohn's disease involving terminal ileum (HCC) Take 1 tablet by mouth once daily. 90 tablet 1 07/15/2020 06/15/2021 Discontinued Comment on above: Take 1 tablet by sarah th once daily. (8 sources) Start: 02-17-2023 Start: 01-21-2023 Start: 12-28-2022 End: 02-17-2023 Start: 12-28-2022 Completed/Discontinued Medications Medication Drug Class(es) Dates Sig (Normalized) Sig (Original) acetaminophen 325 mg / HYDROcodone bitartrate 5 mg oral tablet (20 sources) Opioid Agonist Start: 01-10-2023 End: 01-15-2023 Hydrocodone-Acetami nophen 5-325 mg tablet Discontinued 1 {tbl} PO EVERY 6 HOURS NEEDED as needed for Pain 10 3 0 January 10, 2023 January 15, 2023 12:05am Abdominal pain Unspecified abdominal pain Start: 01-10-2023 End: 01-15-2023 take 1 tablet by mouth every six hours as needed Hydrocodone-Acetaminophen Discontinued 1 TABLET PO EVERY 6 HOURS NEEDED 10 3 January 10, 2023 January 15, 2023 12:05am Start: 01-10-2023 End: 01-15-2023 Start: 12-28-2022 take 1 tablet by sarah th every four hours as needed Hydrocodone-Acetaminophen Active 1 TABLE T PO EVERY 4 HOURS NEEDED 10 2 December 28, 2022 Start: 02-26-2022 End: 03-01-2022 take 1 tablet by mouth every six hours as needed for pain HYDROcodone-acetaminophen (NORCO) 5-325 mg per tablet Indications: Diverticulitis , Left lower quadrant abdominal pain Take 1 tablet by mouth every 6 hours as needed for pain for up to 3 days. 10 tablet 0 02/26/2022 03/01/2022 Active Comment on above: Take 1 tablet by sarah th every 6 hours as needed for pain for up to 3 days. acetaminophen 325 mg / oxyCODONE hydrochloride 5 mg oral tablet (20 sources) Opioid Agonist Start: 01-17-2023 End: 02-06-2023 Oxycodone-Acetaminophen 5-325 mg tablet Discontinued 1 {tbl} PO TWICE A DAY as needed for Pain 40 20 January 17, 2023 February 05, 2023 12:00am February 06, 2023 12:05am Abdominal pain Unspecified abdominal pain Start: 01-17-2023 End: 02-06-2023 take 1 tablet by mouth twice daily Oxycodone-Acetaminophen Discontinued 1 TABLET PO TWICE A DAY 40 January 17, 2023 February 06, 2023 12:05am Start: 12-28-2022 End: 01-17-2023 Oxycodone-Acetaminophen 5-32 5 mg tablet Discontinued 1 {tbl} PO EVERY 6 HOURS NEEDED as needed for Pain 12 3 0 January 15, 2023 January 17, 2023 1:07pm Abdominal pain Unspecified abdominal pain Start: 12-28-2022 End: 01-17-2023 take 1 tablet by mouth every six hours as needed Oxycodone-Acetaminophen Discontinued 1 TABLET PO EVERY 6 HOURS NEEDED 12 3 January 15, 2023 January 17, 2023 1:07pm Start: 12-28-2022 End: 02-06-2023 alendronic acid 70 mg oral tablet (20 sources) Bisphosphonate Start: 08-23-2024 End: 07-11-2025 take 1 tablet by mouth every week Alendronate 70 mg tablet Discontinued 70 mg PO EVERY WEEK 14 0 November 12, 2024 12:09pm January 25, 2025 12:07pm ALPRAZolam 1 mg oral tablet (11 sources) Benzodiazepine Start: 02-14-2025 End: 06-13-2025 take 1 tablet by mouth twice daily as needed for anxiety Alprazolam 1 mg tablet Discontinued 1 mg PO TWICE A DAY as needed for anxiety 20 0 April 11, 2025 4:47pm June 13, 2025 11:41am amoxicillin 875 mg / clavulanate 125 mg oral tablet (6 sources) Penicillin-class Antibacterial Start: 04-08-2025 End: 04-08-2025 Amoxicillin-Pot Clavulanate 875-125 mg tablet Discontinued 1 {tbl} PO TWICE A DAY 28 14 0 April 08, 2025 12:00am April 21, 2025 12:00am April 08, 2025 1:40pm aspirin 81 mg delayed release oral tablet (20 sources) Platelet Aggregation Inhibitor, Nonsteroidal Anti-inflammatory Drug Start: 12-21-2013 End: 08-09-2024 take 1 tablet by mouth once daily Aspirin (Ecotrin Low Strength) 81 mg tablet,delayed release (DR/EC) Discontinued 81 mg PO DAILY 90 1 January 30, 2023 3:16pm August 09, 2024 4:04pm Comment on above: Take 1 tablet by sarah th once daily. atenolol 25 mg oral tablet (20 sources) beta-Adrenergic Maribell Start: 11-24-2018 End: 04-18-2025 take 1 tablet by mouth once daily as needed Atenolol 25 mg tablet Discontinued 25 mg PO DAILY 90 0 March 28, 2025 11:12pm April 18, 2025 11:33am prn per pt Comment on above: Take 1 tablet by sarah th once daily. TAKE 1 TABLET BY SARAH TH EVERY DAY atorvastatin 40 mg oral tablet (20 sources) HMG-CoA Reductase Inhibitor Start: 05-23-2021 End: 03-11-2022 take 1 tablet by mouth once daily at bedtime atorvastatin (LIPITOR) 20 mg tablet Indications: Mixed hyperlipidemia Take 1 tablet by mouth daily at bedtime. Take one tablet daily in addition to 40 mg tablet 90 tablet 1 05/23/2021 03/11/2022 Discontinued Start: 07-19-2020 End: 01-25-2025 take 1 tablet by mouth at bedtime Atorvastatin 40 mg tablet Discontinued 40 mg PO AT BEDTIME 90 1 April 26, 2024 8:03am August 06, 2024 8:05am CHOLESTEROL Comment on above: Take 1 tablet by sarah th daily at bedtime. For cholesterol. Take 1 tablet by sarah th daily at bedtime. Take one tablet daily in addition to 40 mg tablet Take 1 tablet by sarah th daily at bedtime. Take on tablet daily in addition to 20 mg tablet azithromycin 500 mg oral tablet (6 sources) Macrolide Antimicrobial Start: 10-25-20 End: 11-01-19 take 1 tablet by mouth once daily Azithromycin 500 mg tablet Discontinued 500 mg PO daily 7 7 0 October 25, 2024 1:00am October 31, 2024 1:00am November 01, 2024 1:11am betamethasone 3 mg/ml / betamethasone acetate 3 mg/ml injectable suspension (4 sources) Corticosteroid Start: 04-22-20 End: 04-22-20 betamethasone acetate-betamethason e sodium phosphate 6 mg injection (CELESTONE) Start: 04-22-2025 End: 04-22-2025 6 mg, Injection - FOR ORTHO USE ONLY, ONCE, 1 dose, Starting on Fri04/22/25 at 1047, Until Fri04/22/25 at 1047 Biotin (14 sources) End: 04-04-2022 BIOTIN ORAL Take 5,000 mg by mouth. 04/04/2022 Discontinued BIOTIN ORAL Take 5,000 mg by mouth. 0 Active Comment on above: Take 5,000 mg by sarah . budesonide 3 mg delayed release oral capsule (20 sources) Corticosteroid Start: 01-02-2024 End: 03-24-2024 Budesonide 3 mg capsule,delayed,extend.r elease Discontinued 0 PO DAILY 90 0 January 02, 2024 3:44pm March 24, 2024 2:20pm orally daily; take two capsules daily for four weeks; then one capsule daily for four weeks then stop Start: 09-08-2023 End: 01-02-2024 take 3 capsules by mouth once daily Budesonide 3 mg capsule,delayed,extend.release Discontinued 9 mg PO DAILY 270 90 0 December 26, 2023 9:44am March 24, 2024 12:00am January 02, 2024 3:45pm Start: 09-08-2023 End: 01-02-2024 take 9 mg by mouth once daily Budesonide Discontinued 9 MG PO DAILY 27 0 90 December 26, 2023 9:44am January 02, 2024 3:45pm calcium carbonate 1500 mg / cholecalciferol 200 unt oral tablet (20 sources) Vitamin D Start: 01-13-2023 End: 01-25-2025 Calcium Carbonate-Vitamin D3 600 mg-5 mcg (200 unit) tablet Discontinued 1 {tbl} PO DAILY 90 August 24, 2024 3:35pm January 25, 2025 12:07pm Start: 01-13-2023 End: 02-05-2024 take 1 tablet by mouth once daily Calcium Carbonate-Vitamin D3 Discontinued 1 TABLET PO DAILY 90 February 04, 2023 9:45am February 05, 2024 8:05am Start: 01-13-2023 End: 02-04-2023 Start: 10-22-2021 take 1 tablet by sarah th twice daily calcium carbonate 600 mg-cholecalciferol 200 units 600 mg(1,500mg) -200 unit tab Indications: Osteopenia of left hip TAKE 1 TABLET BY MOUTH TWICE A DAY 180 tablet 1 10/22/2021 Active Start: 07-06-2019 End: 05-21-2021 take 1 tablet by mouth twice daily calcium carbonate 600 mg-cholecalciferol 200 units (CALCIUM 600 + D,3,) 600 mg(1,500mg) -200 unit tab Indications: Osteopenia of left hip Take 1 tablet by mouth twice daily. 90 tablet 3 07/06/2019 05/21/2021 Discontinued Comment on above: TAKE 1 TABLET BY SARAH TH TWICE A DAY chlorthalidone 25 mg oral tablet (20 sources) Thiazide-like Diuretic Start: 11-24-19 End: 11-11-19 take 1 tablet by mouth once daily Chlorthalidone 25 MG tablet Discontinued 25 mg PO DAILY November 24, 2018 1:00am November 11, 2022 12:13pm ciprofloxacin 500 mg oral tablet (12 sources) Quinolone Antimicrobial Start: 04-08-20 End: 04-15-20 take 1 tablet by mouth twice daily Ciprofloxacin Hcl 500 mg tablet Discontinued 500 mg PO TWICE A DAY 14 7 0 April 08, 2025 12:00am April 14, 2025 12:00am April 15, 2025 12:09am Start: 03-26-2022 End: 04-05-2022 take 1 tablet by mouth twice daily ciprofloxacin HCl (CIPRO) 500 mg tablet Indications: Sigmoid diverticulitis Take 1 tablet by mouth twice daily for 10 days. 20 tablet 0 03/26/2022 04/05/2022 Active Start: 03-08-2022 End: 03-18-2022 take 1 tablet by mouth twice daily ciprofloxacin HCl (CIPRO) 500 mg tablet Take 1 tablet by mouth twice daily for 10 days. 20 tablet 0 03/08/2022 03/18/2022 Active Start: 02-26-2022 End: 03-05-2022 take 1 tablet by mouth twice daily ciprofloxacin HCl (CIPRO) 500 mg tablet Take 1 tablet by mouth twice daily for 7 days. 14 tablet 0 02/26/2022 03/05/2022 Active Comment on above: Take 1 tablet by sarah th twice daily for 7 days. Take 1 tablet by sarah th twice daily for 10 days. cyclobenzaprine hydrochloride 10 mg oral tablet (20 sources) Muscle Relaxant Start: 01-14-20 End: 07-18-20 take 1 tablet by mouth twice daily as needed for pain Cyclobenzaprine 10 mg tablet Discontinued 10 mg PO TWICE A DAY as needed for Back Pain February 17, 2023 11:29am July 18, 2023 8:11am Start: 01-13-2023 End: 02-17-2023 Cyclobenzaprine 10 mg tablet Discontinued 1 NMA PO NEEDED as needed for Back Pain January 13, 2023 12:00am February 17, 2023 11:31am Start: 03-09-2020 End: 02-17-2023 take 1 tablet by mouth every eight hours as needed cyclobenzaprine (FLEXERIL) 10 mg tablet Take 1 tablet by mouth every 8 hours as needed for Muscle Spasm (or pain). 20 tablet 05/26/2020 Active Comment on above: Take 1 tablet by sarah th every 8 hours as needed for Muscle Spasm (or pain). doxycycline monohydrate 100 mg oral capsule (6 sources) Tetracycline-cla ss Drug Start: 04-27-2024 End: 08-06-2024 take 1 capsule by mouth twice daily Doxycycline Monohydrate 100 mg capsule Discontinued 100 mg PO TWICE A DAY 10 0 April 27, 2024 12:00am August 06, 2024 7:24am ergocalciferol, vitamin D2, (VITAMIN D2 ORAL) (18 sources) End: 03-06-2022 ergocalciferol, vitamin D2, (VITAMIN D2 ORAL) Take by mouth. 03/06/2022 Discontinued (Discontinued by Patient) End: 03-06-2022 ergocalciferol, vitamin D2, (VITAMIN D2 ORAL) Take by mouth. 0 03/06/2022 Discontinued (Discontinued by Patient) ergocalciferol, vitamin D2, (VITAMIN D2 ORAL) Take by mouth. 0 Active Comment on above: Take by mouth. escitalopram 10 mg oral tablet (20 sources) Serotonin Reuptake Inhibitor Start: 3 End: 3 take 5 mg by mouth once daily Escitalopram Oxalate (Lexapro) 10 mg tablet Discontinued 5 mg PO DAILY 30 5 March 25, 2023 8:02am March 31, 2023 9:54am famotidine 20 mg oral tablet (20 sources) Histamine-2 Receptor Antagonist Start: 3 End: 3 take 1 tablet by mouth once daily as needed Famotidine 20 mg tablet Discontinued 20 mg PO DAILY as needed for Stomach Upset December 28, 2022 1:00am January 21, 2023 2:51pm Start: 11-12-2021 End: 11-04-2022 take 1 tablet by mouth every twelve hours as needed famotidine (PEPCID) 20 mg tablet Take 1 tablet by mouth twice daily as needed. Take one tablet twice daily. May take an additional tablet as needed. 60 tablet 5 11/04/2022 Active Start: 05-30-2020 End: 10-05-2020 famotidine (PEPCID) 20 mg ta blet Indications: Functional dyspepsia , Chronic antral gastritis Take one tablet twice daily. May take an additional tablet as needed. 90 tablet 5 05/30/2020 10/05/2020 Discontinued Comment on above: TAKE ONE TABLET TWIC E DAILY. MAY TAKE AN ADDITIONAL TABLET NEEDED. Take 1 tablet by sarah th twice daily as needed. Take one tablet twice daily. May take an additional tablet as needed. fexofenadine hydrochloride 180 mg oral tablet (6 sources) Histamine-1 Receptor Antagonist Start: 4 End: 4 take 1 tablet by mouth once daily Fexofenadine 180 mg tablet Discontinued 180 mg PO DAILY 10 April 27, 2024 12:00am August 06, 2024 7:27am gabapentin 600 mg oral tablet (20 sources) Anti-epileptic Agent Start: 4 End: 3 take 1 tablet by mouth twice daily as needed for pain Gabapentin (Neurontin) 600 MG tablet Discontinued 600 mg PO TWICE A DAY as needed for Pain December 21, 2013 1:00am February 18, 2023 4:20pm Start: 12-21-2013 End: 05-21-2021 take 1 tablet by mouth once daily gabapentin (NEURONTIN) 600 mg tablet Indications: Cervical spondylosis without myelopathy Take 1 tablet by mouth once daily for 30 days. 30 tablet 2 05/21/2021 Active Comment on above: Take 1 tablet by [facility] once daily for 30 days. hydrOXYzine hydrochloride 10 mg oral tablet (6 sources) Antihistamine Start: 01-26-20 End: 04-11-20 take 1 tablet by mouth every eight hours as needed for anxiety Hydroxyzine Hcl 10 mg tablet Discontinued 10 mg PO Q8H as needed for anxiety 20 0 January 25, 2025 12:00am April 11, 2025 1:00pm hyoscyamine sulfate 0.125 mg oral tablet (18 sources) Start: 01-18-20 End: 01-21-20 Hyoscyamine Sulfate 0.125 mg tablet Discontinued 0.125 mg PO 2 to 4 times per day as needed for dyspepsia 60 3 January 17, 2023 12:00am January 20, 2023 4:18pm lactobacillus acidophilus 460 mg oral capsule (20 sources) Start: 12-29-19 End: 04-01-20 Lactobacillus Acidophilus (Florajen Acidophilus) 20 billion cell Capsule Discontinued 10 mg PO DAILY December 28, 2022 1:00am April 01, 2023 2:58pm . levothyroxine sodium 0.075 mg oral tablet (20 sources) l-Thyroxine Start: 11-11-19 End: 04-01-20 take 1 capsule by mouth once daily Levothyroxine 75 mcg capsule Discontinued 75 ug PO DAILY November 11, 2022 1:00am April 01, 2023 2:59pm Start: 09-05-2021 End: 01-25-2025 take 1 tablet by mouth once daily Levothyroxine 75 mcg tablet Discontinued 75 ug PO DAILY 90 1 June 18, 2024 1:00pm August 06, 2024 8:05am Start: 08-22-2020 End: 08-28-2020 take 1 tablet by mouth once daily for thyroid dysfunction levothyroxine (SYNTHROID) 75 mcg tablet Indications: Acquired hypothyroidism Take 1 tablet by mouth once daily. Take on empty stomach. For Thyroid. 30 tablet 08/22/2020 08/28/2020 Discontinued Start: 11-24-2018 End: 11-11-2022 take 1 tablet by mouth once daily Levothyroxine 50 MCG tablet Discontinued 50 ug PO DAILY November 24, 2018 1:00am November 11, 2022 12:13pm Comment on above: Take 1 tablet by sarah once daily. Take on empty stomach. For Thyroid. 10 ml lidocaine hydrochloride 10 mg/ml injection (20 sources) Antiarrhythmic, Amide Local Anesthetic Start: 04-22-2025 End: 04-22-2025 lidocaine (PF) 10 mg/mL (1 %) 5 mL injection (XYLOCAINE) Start: 04-22-2025 End: 04-22-2025 5 mL, Injection - FOR ORTHO USE ONLY, ONCE, 1 dose, Starting on Fri04/22/25 at 1047, Until Fri04/22/25 at 1047 Start: 01-13-2023 Lidocaine 4 % adhesive patch,medicated Active 1 NMA TOPICAL DAILY as needed for Pain January 13, 2023 12:00am Complies with drug therapy linaclotide 0.29 mg oral capsule (20 sources) Guanylate Cyclase-C Agonist Start: 05-29-2023 End: 06-17-2025 take 1 capsule by mouth once daily Linaclotide (Linzess) 290 mcg capsule Discontinued 290 ug PO DAILY 90 2 March 18, 2025 8:12am June 17, 2025 8:09am Start: 04-24-2023 End: 05-29-2023 take 1 capsule by mouth once daily Linaclotide (Linzess) 145 mcg capsule Discontinued 145 ug PO DAILY 30 3 April 24, 2023 12:00am May 29, 2023 9:50am lisinopril 40 mg oral tablet (20 sources) Angiotensin Converting Enzyme Inhibitor Start: 07-06-2023 End: 04-18-2025 take 1 tablet by mouth once daily Lisinopril 40 mg tablet Discontinued 40 mg PO DAILY 90 June 21, 2024 7:46am August 06, 2024 8:05am Start: 03-31-2023 End: 07-06-2023 take 2 tablets by mouth once daily Lisinopril 20 mg tablet Discontinued 40 mg PO DAILY 90 April 21, 2023 12:32pm July 06, 2023 9:31pm Start: 03-31-2023 End: 07-06-2023 take 40 mg by mouth once daily Lisinopril Discontinued 40 MG PO DAILY April 21, 2023 12:32pm July 06, 2023 9:31pm Start: 08-08-2021 End: 11-04-2022 take 1 tablet by mouth once daily lisinopril (ZESTRIL, PRINIVIL) 10 mg tablet Indications: Essential hypertension, benign Take 1 tablet by mouth once daily. 90 tablet 0 11/01/2022 11/04/2022 Discontinued (Changing Therapy/Dosage Form) Start: 07-20-2020 End: 11-29-2020 take 0.5 tablet by mouth once daily lisinopril (ZESTRIL) 20 mg tablet Indications: Essential hypertension, benign Take 0.5 tablets by mouth once daily. 15 tablet 2 07/20/2020 11/29/2020 Discontinued Start: 12-21-2013 End: 03-31-2023 take 1 tablet by mouth once daily Lisinopril 20 MG tablet Discontinued 20 mg PO DAILY December 21, 2013 1:00am March 31, 2023 10:31am Comment on above: Take 1 tablet by sarah th once daily. magnesium citrate 58.2 mg/ml oral solution (11 sources) Start: 07-30-2023 End: 08-04-2023 take 1 mL by mouth once Magnesium Citrate solution Discontinued 300 mL PO ONE TIME July 30, 2023 12:00am August 04, 2023 1:52pm Start: 07-30-2023 End: 08-04-2023 take 1 mL by mouth once Magnesium Citrate Discontinu ed 300 ML PO ONE TIME July 30, 2023 12:00am August 04, 2023 1:52pm magnesium hydroxide 80 mg/ml oral suspension (10 sources) Start: 11-03-2023 End: 06-13-2025 take 400 mg by mouth once daily as needed for constipation Magnesium Hydroxide 400 mg/5 mL suspension Discontinued 400 mg PO DAILY as needed for constipation November 03, 2023 1:00am June 13, 2025 11:42am Start: 11-03-2023 End: 06-13-2025 take 400 mg by mouth once daily as needed for constipation Magnesium Hydroxide 400 mg/5 mL suspension Discontinued 400 mg PO DAILY as needed for constipation November 03, 2023 1:00am June 13, 2025 11:42am Start: 11-03-2023 take 400 mg by mouth once daily as needed for constipation Magnesium Hydroxide 400 mg/5 mL suspension Active 400 mg PO DAILY as needed for constipation November 03, 2023 1:00am Start: 11-03-2023 take 400 mg by mouth once rasheeda y Magnesium Hydroxide Active 400 MG PO DAILY November 03, 2023 1:00am Start: 11-03-2023 take 400 mg by mouth once rasheeda y Magnesium Hydroxide Active 400 MG PO DAILY November 03, 2023 12:00am metroNIDAZOLE 500 mg oral tablet (20 sources) Nitroimidazole Antimicrobial Start: 04-08-2025 End: 04-15-2025 take 1 tablet by mouth three times daily Metronidazole 500 mg tablet Discontinued 500 mg PO THREE TIMES A DAY 21 7 0 April 08, 2025 12:00am April 14, 2025 12:00am April 15, 2025 12:09am Start: 12-28-2022 End: 01-04-2023 take 1 tablet by mouth every eight hours Metronidazole 500 mg tablet Discontinued 500 mg PO Q8H 21 0 December 28, 2022 1:00am January 04, 2023 12:04pm Start: 03-26-2022 End: 04-05-2022 take 1 tablet by mouth three times daily metroNIDAZOLE (FLAGYL) 500 mg tablet Indications: Sigmoid diverticulitis Take 1 tablet by mouth three times daily for 10 days. 30 tablet 0 03/26/2022 04/05/2022 Active Start: 03-08-2022 End: 03-18-2022 take 1 tablet by mouth three times daily metroNIDAZOLE (FLAGYL) 500 mg tablet Take 1 tablet by mouth three times daily for 10 days. 30 tablet 0 03/08/2022 03/18/2022 Active Start: 02-26-2022 End: 03-05-2022 take 1 tablet by mouth every eight hours metroNIDAZOLE (FLAGYL) 500 mg tablet Take 1 tablet by mouth every 8 hours for 7 days. 21 tablet 0 02/26/2022 03/05/2022 Active Comment on above: Take 1 tablet by sarah th every 8 hours for 7 days. Take 1 tablet by sarah th three times daily for 10 days. Multivitamin With Folic Acid (Therems Multivitamin) 400 mcg tablet (20 sources) Start: 05-19-2023 End: 10-28-2023 Multivitamin With Folic Acid (Therems Multivitamin) 400 mcg tablet Discontinued 1 {tbl} PO DAILY May 19, 2023 8:46am October 28, 2023 11:36am SUPPLEMENT Start: 05-19-2023 End: 10-28-2023 Multivitamin With Folic Acid (Therems Multivitamin) 400 mcg tablet Discontinued 1 {tbl} PO DAILY May 19, 2023 8:46am October 28, 2023 11:36am Start: 05-19-2023 End: 10-28-2023 take 1 tablet by mouth once daily Multivitamin With Folic Acid (Therems Multivitamin) 400 mcg tablet Discontinued 1 TABLET PO DAILY May 19, 2023 8:46am October 28, 2023 11:36am Start: 05-19-2023 End: 10-28-2023 take 1 tablet by mouth once daily Multivitamin With Folic Acid (Therems Multivitamin) 400 mcg tablet Discontinued 1 TABLET PO DAILY May 19, 2023 7:46am October 28, 2023 10:36am Start: 05-19-2023 take 1 tablet by sarah th once daily Multivitamin With Folic Acid (Therems Multivitamin) 400 mcg tablet Active 1 TABLET PO DAILY May 19, 2023 8:46am Start: 02-17-2023 End: 05-19-2023 Multivitamin With Folic Acid (Therems Multivitamin) 400 mcg tablet Discontinued 1 {tbl} PO DAILY February 17, 2023 11:32am May 19, 2023 8:46am SUPPLEMENT Start: 02-17-2023 End: 05-19-2023 Multivitamin With Folic Acid (Therems Multivitamin) 400 mcg tablet Discontinued 1 {tbl} PO DAILY February 17, 2023 11:32am May 19, 2023 8:46am Start: 02-17-2023 End: 05-19-2023 take 1 tablet by mouth once daily Multivitamin With Folic Acid (Therems Multivitamin) 400 mcg tablet Discontinued 1 TABLET PO DAILY February 17, 2023 10:32am May 19, 2023 7:46am Start: 02-17-2023 End: 05-19-2023 take 1 tablet by mouth once daily Multivitamin With Folic Acid (Therems Multivitamin) 400 mcg tablet Discontinued 1 TABLET PO DAILY February 17, 2023 11:32am May 19, 2023 8:46am Start: 12-28-2022 End: 02-17-2023 Multivitamin With Folic Acid (Therems Multivitamin) 400 mcg tablet Discontinued 1 {tbl} PO DAILY December 28, 2022 1:00am February 17, 2023 11:32am SUPPLEMENT Start: 12-28-2022 End: 02-17-2023 Multivitamin With Folic Acid (Therems Multivitamin) 400 mcg tablet Discontinued 1 {tbl} PO DAILY December 28, 2022 1:00am February 17, 2023 11:32am Start: 12-28-2022 End: 02-17-2023 take 1 tablet by mouth once daily Multivitamin With Folic Acid (Therems Multivitamin) 400 mcg tablet Discontinued 1 TABLET PO DAILY December 28, 2022 12:00am February 17, 2023 10:32am Start: 12-28-2022 End: 02-17-2023 take 1 tablet by mouth once daily Multivitamin With Folic Acid (Therems Multivitamin) 400 mcg tablet Discontinued 1 TABLET PO DAILY December 28, 2022 1:00am February 17, 2023 11:32am Start: 12-28-2022 take 1 tablet by sarah th once daily Multivitamin With Folic Acid (Therems Multivitamin) 400 mcg tablet Active 1 TABLET PO DAILY December 28, 2022 1:00am Start: 12-28-2022 take 1 tablet by sarah th once daily Multivitamin With Folic Acid (Therems Multivitamin) 400 mcg tablet Active 1 TABLET PO DAILY December 28, 2022 12:00am ondansetron 4 mg disintegrating oral tablet (20 sources) Serotonin-3 Receptor Antagonist Start: 04-12-2024 End: 05-24-2025 take 1 tablet by mouth every eight hours as needed for nausea Ondansetron 4 mg tablet,disintegrating Discontinued 4 mg PO EVERY 8 HOURS NEEDED as needed for Nausea 30 0 February 23, 2025 8:13am May 24, 2025 1:33pm Start: 01-10-2023 End: 11-17-2023 take 1 tablet by mouth every eight hours as needed for nausea Ondansetron 4 mg tablet,disintegrating Discontinued 4 mg PO EVERY 8 HOURS NEEDED as needed for Nausea 10 0 January 10, 2023 12:00am November 17, 2023 2:27pm Start: 01-10-2023 pantoprazole 40 mg delayed release oral tablet (20 sources) Proton Pump Inhibitor Start: 01-17-2023 End: 12-01-2024 take 1 tablet by mouth once daily Pantoprazole 40 mg tablet,delayed release (DR/EC) Discontinued 40 mg PO DAILY 90 1 August 10, 2024 8:02am December 01, 2024 11:05am polyethylene glycol 3350 [id number] mg powder for oral solution (20 sources) Osmotic Laxative Start: 03-11-2022 End: 11-04-2022 polyethylene glycol 3350 (MIRALAX, GLYCOLAX) 17 gram/dose powder Indications: Crohn's disease involving terminal ileum (HCC) , Sigmoid diverticulitis Use as directed for Miralax / Gatorade Bowel Prep Kit 238 g 0 03/11/2022 11/04/2022 Discontinued (Duplicate Entry) Comment on above: Use as directed for Miralax / Gatorade Bowel Prep Kit microencapsulated potassium chloride 20 meq extended release oral tablet (20 sources) Start: 07-18-2021 End: 03-31-2024 Potassium Chloride (Klor-Con M20) 20 mEq tablet,ER particles/crystals Discontinued 40 meq PO TWICE A DAY as needed for POTASSIUM April 01, 2023 3:01pm March 31, 2024 12:00pm Start: 02-16-2020 End: 10-16-2020 take 2 tablets by mouth in the morning potassium chloride ER (KLOR-CON M20) 20 mEq tablet Take 2 tablets PO in the am, and 2 tablets in the pm. 150 tablet 5 02/16/2020 10/16/2020 Discontinued Comment on above: TAKE 2 TABLETS BY MO UT IN THE MORNING AND 2 TABLETS IN THE EVENING predniSONE 20 mg oral tablet (20 sources) Start: 04-08-2025 End: 06-13-2025 Prednisone 20 mg tablet Discontinued 0 .ROUTE .COMPLEX 36 0 April 08, 2025 12:00am June 13, 2025 11:42am Take 2 tabs for 7 days, 1 1/2 tabs for 7 days, 1 tab for 7 days and the 0.5 tab for 7 days Start: 03-21-2023 End: 05-28-2023 take 2 tablets by mouth once daily, then take 1 tablet by mouth once daily Prednisone 5 mg tablet Discontinued 0 PO As Directed 42 0 March 21, 2023 12:00am May 28, 2023 3:42pm take two once a day for two weeks then take one once a day for two weeks Start: 01-15-2023 End: 01-17-2023 take 2 tablets by mouth once daily Prednisone 20 mg tablet Discontinued 40 mg PO DAILY 6 3 0 January 15, 2023 12:05am January 17, 2023 12:59pm Start: 12-28-2022 End: 03-28-2023 take 1 tablet by mouth once daily Prednisone 20 mg tablet Discontinued 20 mg PO DAILY 14 14 0 January 04, 2023 1:00am January 15, 2023 12:05am Start: 12-28-2022 End: 01-04-2023 take 3 tablets by mouth once daily Prednisone 20 mg tablet Discontinued 60 mg PO DAILY 14 0 December 28, 2022 1:00am January 04, 2023 12:28pm Start: 12-28-2022 End: 01-04-2023 take 60 mg by mouth once daily Prednisone Discontinued 60 MG PO DAILY 14 December 28, 2022 1:00am January 04, 2023 12:28pm Start: 12-28-2022 End: 03-28-2023 take 40 mg by mouth once daily Prednisone Discontinued 40 MG PO DAILY 6 3 January 15, 2023 12:05am January 17, 2023 12:59pm spironolactone 25 mg oral tablet (20 sources) Aldosterone Antagonist Start: 01-10-2020 End: 02-17-2023 take 1 tablet by mouth once daily as needed Spironolactone 25 mg tablet Discontinued 25 mg PO DAILY as needed for supplement January 21, 2023 2:53pm February 17, 2023 10:47am Comment on above: Take 1 tablet by sarah th once daily. TAKE 1 TABLET BY SARAH TH EVERY DAY 1 ml ustekinumab 90 mg/ml prefilled syringe (20 sources) Interleukin-12 Antagonist, Interleukin-23 Antagonist Start: 09-08-2023 End: 02-03-2025 Ustekinumab (Stelara) 90 mg/mL syringe Discontinued 90 mg SC every 4 weeks 1 August 24, 2024 8:31am February 03, 2025 8:50am Start: 04-10-2023 End: 09-08-2023 Ustekinumab (Stelara) 90 mg/ mL syringe Discontinued 90 mg SC every 8 weeks 1 April 10, 2023 2:57pm September 08, 2023 2:23pm Start: 03-27-2023 End: 08-04-2023 take 390 mg intravenously once Ustekinumab (Stelara) 1 30 mg/26 mL solution Discontinued 390 mg .Route ONCE 78 0 April 10, 2023 10:46am August 04, 2023 1:53pm Infuse 390mg IV once Start: 03-27-2023 End: 04-01-2023 vancomycin 25 mg/ml oral solution (20 sources) Glycopeptide Antibacterial Start: 01-04-2023 End: 01-21-2023 Vancomycin (Firvanq) 25 mg/mL Recon Soln Discontinued 125 mg PO EVERY 6 HOURS 140 7 0 January 04, 2023 1:00am January 21, 2023 2:53pm Start: 12-27-2022 End: 01-04-2023 Vancomycin 125 mg capsule Di scontinued 125 mg PO As Directed December 28, 2022 10:43am January 04, 2023 12:02pm . Start: 12-27-2022 End: 01-04-2023 Problems Active Problems Problem Classification Problem Date Documented Da te Episodic/Chronic Administrative/social admission (7 sources) Persons encountering health services in other specified circumstances; Translations: [Other reasons for seeking consultation] 01-21-2023 Episodic Allergic reactions (19 sources) Allergic condition; Translations: [Allergy, unspecified, initial encounter] 01-13-2023 Episodic Anxiety disorders (20 sources) Posttraumatic stress disorder; Translations: [Post-traumatic stress disorder, unspecified] Onset: 2 04-04-2022 Chronic Bacterial infection; unspecified site (20 sources) Clostridioides difficile infection; Translations: [Other bacterial infections of unspecified site] 01-17-2023 Episodic Biliary tract disease (19 sources) Gallstone; Translations: [Calculus of gallbladder without cholecystitis without obstruction] 01-13-2023 Episodic Conditions associated with dizziness or vertigo (12 sources) Feeling faint; Translations: [Dizziness and giddiness] 01-25-2025 Episodic Coronary atherosclerosis and other heart disease (20 sources) Coronary atherosclerosis; Translations: [Atherosclerotic heart disease of belkofski coronary artery without angina pectoris] Onset: 0 02-16-2020 Chronic Diseases of white blood cells (3 sources) Elevated white blood cell count, unspecified; Translations: [Leukocytosis, unspecified] 08-04-2023 Chronic Disorders of lipid metabolism (20 sources) Hyperlipidemia; Translations: [Hyperlipidemia, unspecified] Onset: 3 01-21-2017 Chronic Diverticulosis and diverticulitis (20 sources) Diverticulitis; Translations: [Diverticulitis of intestine, part unspecified, without perforation or abscess without bleeding] Resolved: 4 Chronic Esophageal disorders (20 sources) Gastroesophageal reflux disease; Translations: [Gastro-esophageal reflux disease without esophagitis] Onset: 5 Resolved: 5 12-16-2014 Chronic Essential hypertension (20 sources) Essential (primary) hypertension; Translations: [Benign essential hypertension] Onset: 8 01-21-2017 Chronic Fluid and electrolyte disorders (20 sources) Hypokalemia; Translations: [Hypokalemia] Episodic Gastritis and duodenitis (1 source) Chronic antral gastritis; Translations: [Unspecified chronic gastritis without bleeding] Chronic Genitourinary symptoms and ill-defined conditions (20 sources) History of urinary tract infection; Translations: [Personal history of urinary (tract) infections] Resolved: 5 01-13-2023 Episodic Immunizations and screening for infectious disease (10 sources) Vaccination needed; Translations: [Encounter for immunization] Onset: Episodic Inflammation; infection of eye (except that caused by tuberculosis or sexually transmitteddisease) (20 sources) Bilateral punctate keratitis of eyes; Translations: [Punctate keratitis, bilateral] Onset: 9 11-05-2018 Chronic Intestinal infection (20 sources) Clostridium difficile colitis; Translations: [Enterocolitis due to Clostridium difficile, not specified as recurrent] 12-28-2022 Episodic Joint disorders and dislocations; trauma-related (20 sources) Loose body in knee; Translations: [Loose body in knee, unspecified knee] Onset: 7 02-21-2017 Chronic Malaise and fatigue (13 sources) Fatigue; Translations: [Other fatigue] 02-19-2023 Episodic Mood disorders (20 sources) Depressive disorder; Translations: [Depression] Onset: 6 Resolved: 5 03-17-2015 Chronic Nausea and vomiting (20 sources) Nausea; Translations: [Nausea] Episodic Noninfectious gastroenteritis (20 sources) Ileitis; Translations: [Noninfective gastroenteritis and colitis, unspecified] 12-28-2022 Episodic Nonspecific chest pain (20 sources) Chest pain; Translations: [Chest pain, unspecified] Onset: 5 11-24-2018 Episodic Nutritional deficiencies (1 source) Vitamin deficiency; Translations: [Vitamin deficiency, unspecified] 01-13-2023 Episodic Occlusion or stenosis of precerebral arteries (7 sources) Occlusion and stenosis of unspecified carotid artery; Translations: [Occlusion and stenosis of carotid artery without mention of cerebral infarction] 01-21-2023 Chronic Osteoarthritis (4 sources) Primary osteoarthritis, right hand; Translations: [Primary gonarthrosis, bilateral] Onset: 8 04-22-2025 Chronic Osteoporosis (3 sources) Osteoporosis; Translations: [Age-related osteoporosis without current pathological fracture] 01-25-2025 Chronic Other bone disease and musculoskeletal deformities (19 sources) Osteopenia; Translations: [Other specified disorders of bone density and structure, unspecified site] 01-13-2023 Episodic Other bone disease and musculoskeletal deformities (4 sources) Scapulalgia; Translations: [Other specified disorders of bone, shoulder] 06-13-2025 Episodic Other bone disease and musculoskeletal deformities (1 source) Other specified disorders of bone, shoulder; Translations: [Other specified disorders of bone, shoulder] Onset: 5 Episodic Other circulatory disease (20 sources) Carotid bruit; Translations: [Other specified symptoms and signs involving the circulatory and respiratory systems] 11-24-2018 Episodic Other eye disorders (7 sources) Other vitreous opacities, unspecified eye; Translations: [Other vitreous opacities] 01-21-2023 Chronic Other eye disorders (1 source) Complete obstruction of lacrimal canaliculus ; Translations: [Full-term ] 03-31-2023 Episodic Other female genital disorders (2 sources) Pruritus of vagina; Translations: [Other specified noninflammatory disorders of vagina] Episodic Other gastrointestinal disorders (3 sources) Acute constipation; Translations: [Constipation, unspecified] Episodic Other gastrointestinal disorders (1 source) Gastrointestinal tract problem; Translations: [Other specified symptoms and signs involving the digestive system and abdomen] 01-13-2023 Episodic Other gastrointestinal disorders (13 sources) Diarrhea; Translations: [Diarrhea, unspecified] 02-14-2023 Episodic Other gastrointestinal disorders (20 sources) Constipation; Translations: [Constipation, unspecified] 03-25-2023 Episodic Other gastrointestinal disorders (9 sources) Other constipation; Translations: [Constipation, unspecified] 05-01-2023 Episodic Other gastrointestinal disorders (3 sources) Chronic constipation; Translations: [Other constipation] 01-25-2025 Episodic Other infections; including parasitic (1 source) Disorder due to infection; Translations: [Unspecified infectious disease] 01-13-2023 Episodic Other injuries and conditions due to external causes (2 sources) Personal history of (healed) traumatic fracture; Translations: [Personal history of (healed) traumatic fracture] Onset: 8 Episodic Other injuries and conditions due to external causes (19 sources) Fracture of bone; Translations: [Other injury of unspecified body region, initial encounter] 01-13-2023 Episodic Other injuries and conditions due to external causes (1 source) Unspecified injury of thorax, initial encounter; Translations: [Traumatic injury of rib] Onset: 5 Episodic Other liver diseases (20 sources) Lesion of liver; Translations: [Liver disease, unspecified] 01-05-2023 Chronic Other nervous system disorders (19 sources) Neuropathy; Translations: [Polyneuropathy, unspecified] 01-13-2023 Chronic Other nervous system disorders (7 sources) Other chronic pain; Translations: [Other chronic pain] 02-17-2023 Chronic Other non-traumatic joint disorders (1 source) Acute ankle pain; Translations: [Pain in right ankle and joints of right foot] 08-25-2020 Episodic Other non-traumatic joint disorders (1 source) Joint pain; Translations: [Pain in unspecified joint] 08-25-2020 Episodic Other non-traumatic joint disorders (4 sources) Pain in right knee; Translations: [Other acute pain] Onset: 5 04-21-2025 Episodic Other non-traumatic joint disorders (1 source) Pain in left knee; Translations: [Pain in both knees, unspecified chronicity] Onset: 5 Episodic Other upper respiratory disease (1 source) Seasonal allergy; Translations: [Other seasonal allergic rhinitis] Chronic Other upper respiratory infections (13 sources) Acute upper respiratory infection; Translations: [Acute upper respiratory infection, unspecified] 07-18-2023 Episodic Regional enteritis and ulcerative colitis (20 sources) Crohn's disease of terminal ileum; Translations: [Crohn's disease of small intestine without complications] Onset: 7 01-21-2017 Chronic Residual codes; unclassified (20 sources) Sleep apnea; Translations: [Sleep apnea, unspecified] Onset: 3 01-21-2017 Chronic Residual codes; unclassified (14 sources) Obstructive sleep apnea syndrome; Translations: [Obstructive sleep apnea (adult) (pediatric)] Chronic Residual codes; unclassified (2 sources) Early satiety; Translations: [Early satiety] Episodic Residual codes; unclassified (20 sources) Other specified health status; Translations: [Failure of outpatient treatment] 01-05-2023 Episodic Residual codes; unclassified (7 sources) Immunization not carried out because of patient refusal; Translations: [Vaccination not carried out because of patient refusal] 01-21-2023 Episodic Residual codes; unclassified (2 sources) Other general symptoms and signs; Translations: [Other general symptoms] 02-05-2024 Episodic Screening and history of mental health and substance abuse codes (20 sources) Tobacco use and exposure - finding; Translations: [Personal history of nicotine dependence] Onset: 2 04-04-2022 Episodic Spondylosis; intervertebral disc disorders; other back problems (20 sources) Cervical spondylosis without myelopathy; Translations: [Spondylosis without myelopathy or radiculopathy, cervical region] Onset: 5 12-08-2014 Chronic Spondylosis; intervertebral disc disorders; other back problems (20 sources) Lumbago with sciatica; Translations: [Lumbago with sciatica, left side] Onset: 6 Resolved: 5 08-05-2016 Episodic Substance-related disorders (20 sources) Smoker; Translations: [Nicotine dependence, unspecified, uncomplicated] Onset: 6 07-25-2016 Chronic Thyroid disorders (20 sources) Other specified hypothyroidism; Translations: [Autoimmune thyroiditis] Onset: 5 Resolved: 5 01-21-2017 Chronic Thyroid disorders (19 sources) Disorder of thyroid gland; Translations: [Disorder of thyroid, unspecified] 01-13-2023 Episodic Unclassified (20 sources) Encounter for screening for lipoid disorders; Translations: [Patient encounter status] Onset: 8 Episodic Unclassified (1 source) Pain in both knees, unspecified chronicity 04-21-2025 Viral infection (6 sources) Viral disease; Translations: [Viral infection, unspecified] 01-25-2025 Episodic Past or Other Problems Problem Classification Problem Date Documented Da te Episodic/Chronic Abdominal hernia (6 sources) Diaphragmatic hernia; Translations: [Diaphragmatic hernia without obstruction or gangrene] Resolved: 02-21-2014 02-21-2014 Episodic Abdominal pain (20 sources) Left lower quadrant pain; Translations: [Left lower quadrant pain] Onset: 04-14-2025 Resolved: 11-23-2012 Episodic Comment on above: R/T Crohn's disease Blindness and vision defects (20 sources) Bilateral hyperopia of eyes; Translations: [Hypermetropia, bilateral] Onset: 11-05-2018 11-05-2018 Episodic Diabetes mellitus without complication (20 sources) Type 2 diabetes mellitus without complication; Translations: [Type 2 diabetes mellitus without complications] Onset: 11-23-2012 Resolved: 04-04-2022 01-21-2017 Chronic Diabetes mellitus without complication (20 sources) Prediabetes; Translations: [Prediabetes] Onset: 11-23-2012 04-04-2022 Episodic Other and unspecified benign neoplasm (6 sources) Benign neoplasm of colon; Translations: [Benign neoplasm of colon, unspecified] Resolved: 12-16-2014 12-16-2014 Episodic Other bone disease and musculoskeletal deformities (6 sources) Disorder of skeletal system; Translations: [Disorder of bone, unspecified] Onset: 02-05-2013 Resolved: 12-16-2014 10-22-2021 Episodic Other connective tissue disease (20 sources) Fibromyalgia; Translations: [Fibromyalgia] Onset: 07-25-2016 07-25-2016 Episodic Other injuries and conditions due to external causes (20 sources) Finding of urine substance level; Translations: [Elevated urine levels of drugs, medicaments and biological substances] Onset: 06-24-2016 10-23-2021 Episodic Other nutritional; endocrine; and metabolic disorders (6 sources) Obesity; Translations: [Obesity, unspecified] Onset: 05-30-2006 Resolved: 12-16-2014 12-16-2014 Chronic Other upper respiratory disease (6 sources) Allergic rhinitis; Translations: [Allergic rhinitis, unspecified] Onset: 05-30-2006 Resolved: 12-16-2014 12-16-2014 Chronic Other upper respiratory disease (1 source) Nasal congestion; Translations: [Nasal congestion] Onset: 10-22-2024 Episodic Residual codes; unclassified (6 sources) Patient encounter status; Translations: [Pain, unspecified] Onset: 02-02-2014 Resolved: 12-16-2014 10-22-2021 Episodic Unclassified (6 sources) NO SHOW Onset: 06-07-2014 Resolved: 12-16-2014 12-16-2014 Unclassified (1 source) Patient encounter status 01-25-2025 Results Test Name Value Interpretation Reference Range Facility Cardiology Visit Reporton Cardiology Visit Report [facility] [address] [place] [address] OFFICE VISIT Date of Service: 09/01/25 MR#: [id number] Acct: [id number] Name: ISAAC RAHMAN Rep #: [id number] : 1960 Provider: HARESH Walls Age/Sex: 65/F [place] [facility] [place] Status: Signed HPI HPI History of Present Illness Details: The patient is a 65-year-old female with HTN, HLD, LINDY, and hypothyroidism presenting with intermittent chest pain and excessive sweating. She reports occasional, non-exertional chest pain occurring approximately once a month, which is not associated with palpitations or dyspnea. She also describes frequent episodes of excessive sweating, including diaphoresis with minimal activity and night sweats. She is unsure if these symptoms are related to anxiety, medication side effects, or a cardiac etiology. She notes a significant family history of heart disease and stroke, and has been under extreme stress recently due to her partner???s recent surgery. She is currently taking lisinopril 40 mg, atenolol 25 mg, aspirin, and a statin. She reports good adherence to her medications and has not experienced any recent side effects. She has not been checking her blood pressure at home recently due to being busy with her partner???s care, but notes that it was previously well controlled. She has not been using her CPAP machine recently due to discomfort from excessive air pressure, and is awaiting a sleep study. She has a history of normal coronary arteries on heart catheterization in 2019, and an echocardiogram in 2019 demonstrated an ejection fraction of 65% with trivial mitral and tricuspid insufficiency. She also has a history of back surgery and bilateral knee dislocations, but is currently able to ambulate without difficulty. Intake Vital Signs 09/01/24 11:20 07/26/25 08:40 09/01/25 07:52 09/01/25 08:55 Height 5 ft 5 ft 5 ft Weight: 165 lb BMI 32.2 BP 196/130 H 171/83 H Blood Pressure Location Lt brachial Lt brachial Position Sitting Sitting Respiration 18 Pulse 56 L Pulse Source Monitor Pulse Oximetry (%) 94 Oxygen Delivery Method room air Intake Visit Reasons: 1 Y FU Gut Dropper Required: No Accompanied by: Self Is patient in pain?: No Allergies Seasonal Allergies: Uncoded (environmental) Allergy (Intermediate, Verified 09/01/25 08:49) Other Penicillins (PCN) Allergy (Verified 09/01/25 08:49) Unknown Tetracyclines Adverse Reaction (Verified 09/01/25 08:49) Nausea Medications ???Medication ???Instructions ???Recorded ???Confirmed ???Type lidocaine 4 % topical patch 1 patch topical DAILY PRN Pain 09/01/25 History Super Collagen Vitamin C 1 tab PO DAILY 01/21/23 09/01/25 H istory spironolactone 25 mg tablet 25 mg PO PRN WATER RETENTION 02/1709/01/25 History Lactobacillus rhamnosus GG 10 1 cap PO DAILY #90 caps 03/11/24 1 11/01/24 Rx billion cell capsule (Culturelle) inulin 2 gram chewable tablet g PO 08/06/24 09/01/25 History (Fiber Gummies) aspirin 81 mg tablet,delayed 81 mg PO DAILY #90 tabs 08/09/24 1 11/01/24 Rx release (Ecotrin Low Strength) sennosides 8.6 mg-docusate sodium 1 tab-cap PO BID PRN 09/01/2404/20 History 50 mg capsule (Senna Plus) dicyclomine 20 mg tablet 20 mg PO BID PRN abdominal 5 09/01/25 Rx discomfort #60 tabs atorvastatin 40 mg tablet 40 mg PO QHS CHOLESTEROL #90 tabs 01/25/25 09/01/25 Rx calcium 600 mg (as 1 tab PO DAILY #90 tabs 01/25/25 1 11/01/24 Rx carbonate)-vitamin D3 5 mcg (200 unit) tablet levothyroxine 75 mcg tablet 75 mcg PO DAILY #90 TABLETS 09/01/25 Rx multivitamin with folic acid 400 1 tab PO DAILY #90 TABLETS 5 09/01/25 Rx mcg tablet (One Daily Essential) ustekinumab 90 mg/mL subcutaneous 90 mg subcut Q4W #1 mL 02/03/25 1 11/01/24 Rx syringe (Stelara) atenolol 25 mg tablet 25 mg PO DAILY #90 TABLETS 5 09/01/25 Rx lisinopril 40 mg tablet 40 mg PO DAILY #90 tabs 04/18/25 1 11/01/24 Rx ondansetron 4 mg disintegrating 4 mg PO Q8H PRN PRN Nausea #30 tab s 05/24/25 09/01/25 Rx tablet clonazepam 0.5 mg tablet 0.5 mg PO QDAY PRN panic attack 09/01/25 History linaclotide 290 mcg capsule 290 mcg PO DAILY #90 caps 06/17/25 09/01/25 Rx (Linzess) fluticasone propionate 50 2 spray intranasal DAILY PRN 06/2409/01/25 Rx mcg/actuation nasal ALLERGIES #16 grams spray,suspension alendronate 70 mg tablet 70 mg PO QWEEK #12 tabs 07/11/25 1 11/01/24 Rx fluoxetine 20 mg capsule 40 mg PO QDAY 07/26/25 09/01/25 Hi story loratadine 10 mg tablet 10 mg PO DAILY PRN Inflammation 09/01/25 Rx #90 tabs magnesium oxide 400 mg PO QDAY #90 caps 07/26/25 1 11/01/24 Rx pantoprazole 40 (more content not included)... Normal [facility] Comprehensive Metabolic Prof ilon 09-01-2025 Albumin [Mass/Vol] 4.2 g/dL Normal 3.4-4.8 [facility] Comment on above: Performed By: #### L 500.4050, L500.4100 ####[facility] [address] [place], [address] Albumin/Globulin [Mass ratio] 1.4 {ratio} Normal 0.9-2.4 [facility] Comment on above: Performed By: #### L 500.4050, L500.4100 ####[facility] [address] [place], [address] ALK PHOS 68 U/L Normal 35-104 [facility] Comment on above: Performed By: #### L 500.4050, L500.4100 ####[facility] [address] [place], [address] ALT [Catalytic activity/Vol] 13 U/L Normal <=34 [facility] Comment on above: Performed By: #### L 500.4050, L500.4100 ####[facility] [address] [place], [address] AST [Catalytic activity/Vol] 21 U/L Normal <=31 [facility] Comment on above: Performed By: #### L 500.4050, L500.4100 ####[facility] [address] [place], [address] Bilirubin [Mass/Vol] 0.38 mg/dL Normal 0.00-1.30 [facility] Comment on above: Performed By: #### L 500.4050, L500.4100 ####[facility] [address] [place], [address] BUN/CRE 15.6 RATIO Normal 10-20 [facility] Comment on above: Performed By: #### L 500.4050, L500.4100 ####[facility] [address] [place], [address] Calcium [Mass/Vol] 9.4 mg/dL Normal 7.6-11.0 [facility] Comment on above: Performed By: #### L 500.4050, L500.4100 ####[facility] [address] [place], [address] Chloride [Moles/Vol] 101 mmol/L Normal 98-108 [facility] Comment on above: Performed By: #### L 500.4050, L500.4100 ####[facility] [address] [place], [address] CO2 [Moles/Vol] 29.3 mmol/L Normal 21.0-32.0 [facility] Comment on above: Performed By: #### L 500.4050, L500.4100 ####[facility] [address] [place], [address] Creatinine [Mass/Vol] 0.61 mg/dL Low 0.70-1.20 [facility] Comment on above: Performed By: #### L 500.4050, L500.4100 ####[facility] [address] [place], [address] GAP 11 Normal 5-15 [facility] Comment on above: Performed By: #### L 500.4050, L500.4100 ####[facility] [address] [place], [address] GFR/1.73 sq M.predicted among non-blacks MDRD (S/P/Bld) [Vol rate/Area] 98 mL/min/{1.73_m2} Normal >60 [facility] Comment on above: Result Comment: mL/m in/1.73m2 CKD-EPI Creatinine Equation (2020) Performed By: #### L 500.4050, L500.4100 ####[facility] [address] [place], [address] Globulin (S) [Mass/Vol] 3.0 g/dL Normal 2.2-4.2 [facility] Comment on above: Performed By: #### L 500.4050, L500.4100 ####[facility] [address] [place], [address] Glucose [Mass/Vol] 105 mg/dL High 70-99 [facility] Comment on above: Performed By: #### L 500.4050, L500.4100 ####[facility] [address] [place], [address] Potassium [Moles/Vol] 4.0 mmol/L Normal 3.3-5.1 [facility] Comment on above: Performed By: #### L 500.4050, L500.4100 ####[facility] [address] [place], [address] Sodium [Moles/Vol] 141 mmol/L Normal 133-145 [facility] Comment on above: Performed By: #### L 500.4050, L500.4100 ####[facility] [address] [place], [address] T PROT 7.2 g/dL Normal 5.9-8.4 [facility] Comment on above: Performed By: #### L 500.4050, L500.4100 ####[facility] [address] [place], [address] Urea nitrogen [Mass/Vol] 10 mg/dL Normal 4-19 [facility] Comment on above: Performed By: #### L 500.4050, L500.4100 ####[facility] [address] [place], [address] Lipid Profileon 09-01-2025 CHOL:HDL 4.55 Normal [facility] Comment on above: Performed By: #### L 500.4050, L500.4100 ####[facility] [address] [place], [address] Cholesterol [Mass/Vol] 227 mg/dL High <=200 [facility] Comment on above: Result Comment: Chol esterol level, Desirable <200 mg/dL Borderline high cholesterol 200-239 mg/dL High cholesterol >=240 mg/dL Recommendations of the NCEP Adult Treatment Panel for the following risk-cutoff thresholds for the [place] population. Performed By: #### L 500.4050, L500.4100 ####[facility] [address] [place], [address] Cholesterol in HDL [Mass/Vol] 50 mg/dL Normal [facility] Comment on above: Result Comment: [place] onal Cholesterol Education Program (NCEP) guidelines: <40 mg/dL: Low HDL-cholesterol (major risk factor for CHD) >= 60 mg/dL: High HDL-cholesterol (negative risk factor for CHD) HDL-cholesterol is affected by a number of factors, e.g. smoking, exercise, hormones, sex and age. Performed By: #### L 500.4050, L500.4100 ####[facility] [address] [place], [address] Cholesterol in LDL [Mass/Vol] 136 mg/dL Normal [facility] Comment on above: Result Comment: Bord kiytsg=604-530 mg/dL Higher Pbeh=720 mg/dL or greater Gant Equation 2020 for LDL-C Performed By: #### L 500.4050, L500.4100 ####[facility] [address] [place], [address] Cholesterol in VLDL [Mass/Vol] 46 mg/dL High 5-40 [facility] Comment on above: Performed By: #### L 500.4050, L500.4100 ####[facility] [address] [place], [address] Triglyceride [Mass/Vol] 229 mg/dL High [facility] Comment on above: Result Comment: The drugs N-Acetylcysteine and Metamizole may falsely depress this assay. Normal range: <150 mg/dL Borderline High: 150-199 mg/dL High: 200-499 mg/dL Very High: >500 mg/dL Performed By: #### L 500.4050, L500.4100 ####[facility] [address] [place], [place], [address] Internal Medicine Office Vis iton 07-25-2025 Internal Medicine Office Visit [facility] Internal Medicine [address] [place], [place] [address] OFFICE VISIT Date of Service: 07/26/25 MR#: [id number] Acct: [id number] Name: ISAAC RAHMAN Rep #: [id number] : 1960 Provider: Dr. Andreas gill MD Age/Sex: 65/F Location[place] [facility] [place] Status: Signed Intake Vital Signs 01/25/25 11:27 04/11/25 12:54 06/13/25 12:29 07/26/25 08:40 Height 5 ft 5 ft 5 ft 5 ft Weight: 165 lb BMI 32.2 BP 130/80 H Blood Pressure Location Lt brachial Position Sitting Respiration 16 Pulse 57 L Pulse Source Monitor Temp 97 F L Temp Source Temporal Pulse Oximetry (%) 96 Oxygen Delivery Method room air Intake Visit Reasons: 6 M FU Gut Dropper Required: No Is patient in pain?: No Allergies Penicillins (PCN) Allergy (Verified 07/26/25 08:27) Unknown Tetracyclines Adverse Reaction (Verified 07/26/25 08:27) Nausea Medications ???Medication ???Instructions ???Recorded ???Confirmed ???Type lidocaine 4 % topical patch 1 patch topical DAILY PRN Pain 07/26/25 History Super Collagen Vitamin C 1 tab PO DAILY 01/21/23 07/26/25 H istory spironolactone 25 mg tablet 25 mg PO PRN WATER RETENTION 02/1707/26/25 History Lactobacillus rhamnosus GG 10 1 cap PO DAILY #90 caps 03/11/24 0 07/26/25 Rx billion cell capsule (Culturelle) inulin 2 gram chewable tablet g PO 08/06/24 07/26/25 History (Fiber Gummies) aspirin 81 mg tablet,delayed 81 mg PO DAILY #90 tabs 08/09/24 0 07/26/25 Rx release (Ecotrin Low Strength) sennosides 8.6 mg-docusate sodium 1 tab-cap PO BID PRN 09/01/24 History 50 mg capsule (Senna Plus) dicyclomine 20 mg tablet 20 mg PO BID PRN abdominal 5 07/26/25 Rx discomfort #60 tabs pantoprazole 40 mg tablet,delayed 40 mg PO DAILY #90 TABLETS 07/26/25 Rx release atorvastatin 40 mg tablet 40 mg PO QHS CHOLESTEROL #90 tabs 01/25/25 07/26/25 Rx calcium 600 mg (as 1 tab PO DAILY #90 tabs 01/25/25 0 07/26/25 Rx carbonate)-vitamin D3 5 mcg (200 unit) tablet levothyroxine 75 mcg tablet 75 mcg PO DAILY #90 TABLETS 07/26/25 Rx multivitamin with folic acid 400 1 tab PO DAILY #90 TABLETS 5 07/26/25 Rx mcg tablet (One Daily Essential) ustekinumab 90 mg/mL subcutaneous 90 mg subcut Q4W #1 mL 02/03/25 0 07/26/25 Rx syringe (Stelara) atenolol 25 mg tablet 25 mg PO DAILY #90 TABLETS 5 07/26/25 Rx lisinopril 40 mg tablet 40 mg PO DAILY #90 tabs 04/18/25 0 07/26/25 Rx ondansetron 4 mg disintegrating 4 mg PO Q8H PRN PRN Nausea #30 tab s 05/24/25 07/26/25 Rx tablet clonazepam 0.5 mg tablet 0.5 mg PO QDAY PRN panic attack 07/26/25 History linaclotide 290 mcg capsule 290 mcg PO DAILY #90 caps 06/17/25 07/26/25 Rx (Linzess) fluticasone propionate 50 2 spray intranasal DAILY PRN 06/2407/26/25 Rx mcg/actuation nasal ALLERGIES #16 grams spray,suspension alendronate 70 mg tablet 70 mg PO QWEEK #12 tabs 07/11/25 0 07/26/25 Rx fluoxetine 20 mg capsule 40 mg PO QDAY 07/26/25 History loratadine 10 mg tablet 10 mg PO DAILY PRN Inflammation 07/26/25 Rx #90 tabs magnesium oxide 400 mg PO QDAY #90 caps 07/26/25 Rx Have you fallen in the past year?: No Nurse's Note: Pt states she has had some night sweats at night here and there. She wonders if she is about to have a chrons flare or if it is a side effect from prozac. She states it is getting better and that the prozac works very well she would be willing to deal w/. that. Pt is requesting labs to check her markers. Pt states that she was struggling w/ her boyfriend having cancer and did not want to be on the addictive medications alf. She states that her physicatrist at [facility] no longer takes her insurance but she has not needed the klonipin and will call us if there is any issues and feels she may need a few. Pt needs loratidine, and klorcon refilled for 90 days. Pt states her old gastro dr used to provide klorcon prn for if she has a chrons flare. [facility] Medical History Panic attack Preoperative cardiovascular examination Abnormal EKG LINDY on CPAP Wears glasses Post-menopausal History of Clostridium difficile infection History of steroid therapy Thyroid disease Arthritis High cholesterol Back pain Injury of back Difficulty swallowing Difficulty chewing History of ulceration Diverticulosis History of Crohn's disease Gastric reflux Former smoker CPAP (continuous positive airway pressure) dependence Shortness of breath on exertion History of stress test History of echocardiogram Hypertension Diarrhea Urinary frequency Hematuria Thyroid disease Pneumonia Oste (more content not included)... Normal [facility] ALLIED HEALTHon 06-18-2025 ALLIED HEALTH HNO ID: [id number] Author: MAIN CARIAS RT(R) Service: Radiology Author Type: Technologist Type: Allied Health Filed: 06/18/2025 13:51 Note Text: Radiology Service Progress Note PATIENT NAME: Isaac Rahman DATE OF SERVICE: June 18, 2025 TIME: 1:51 PM PATIENT IDENTITY VERIFICATION COMPLETED USING TWO (2) IDENTIFIERS: Name and Date of confirmed by patient verbally. FALL SCREENING: Has the patient had 2 falls in the last year or 1 fall with injury or currently using an Ambulatory Assistive Device (Walker, Cane, Wheelchair, Crutches, etc.)? Emergency Room Patient: Screened in ED PATIENT GENDER DATA: Assigned female at . status: : No status: NO. PATIENT RELEVANT IMPLANT DATA REVIEWED: Not Applicable PATIENT PRESENTS WITH AN IMPLANTABLE OR ATTACHED GIFT SHOP MANAGER: No RADIOLOGY DEPARTMENT: General X-ray: Exam(s) Completed: Chest X-Ray Rib X-Ray: Right PERIPHERAL IV DATA: Not applicable SIGNED BY: RT Vic(R) June 18, 2025 1:51 PM Normal [facility] ED NOTEon 06-18-2025 ED NOTE HNO ID: [id number] Author: ANTHONY BUSTAMANTE RN Service: ? Author Type: Registered Nurse Type: ED Notes Filed: 06/18/2025 14:33 Note Text: D/c instructions reviewed with pt who verbalized understanding. Pt's BP elevated, other vss. Dr. Crane aware. Pt left ED ual and in stable condition Normal [facility] ED NOTE HNO ID: [id number] Author: ANTHONY BUSTAAMNTE RN Service: ? Author Type: Registered Nurse Type: ED Notes Filed: 06/18/2025 12:38 Note Text: Pt comes to ED c/o L rib pain that started yesterday. Pt was bending over into a deep freezer pressing abdomen/ribs onto edge of freezer when she heard a pop and immediately became painful. Pt took tylenol last night with minimal relief. Has full ROM to BUE and back at this time. Pain is 8/10 sharp, increased with deep breaths. Has hx of crohn's and saw GI doctor yesterday prior to injury. Exam from GI doc WNL per pt. She is AANDox3, vss. Will continue to monitor. Normal [facility] ED PROV NOTEon 06-18-2025 ED PROV NOTE HNO ID: [id number] Author: LUBA CRANE MD Service: Emergency Medicine Author Type: Physician Type: ED Provider Notes Filed: 06/18/2025 14:29 Note Text: ED Provider Note Patient Name: Isaac Rahman : 1960 SERVICE DATE: 06/18/25 History Patient presents with: Rib Injury The patient is a 65-year-old female presenting today with complaint of left lower rib pain. Patient states that she was in the car start yesterday leaning over a freezer when she felt a pop to the left lower rib cage. States she had pain immediately. She tried taking Tylenol for the pain at home but it continued through this morning. States it hurts to take a deep breath then. She is concerned she may have broken a rib and so she presents to the emergency department. Pain is over the left anterior lower rib cage over ribs 10 through 12. Denies any shortness of breath. Denies any abdominal pain. Denies any other injuries. PAST MEDICAL HISTORY Diagnosis Date Cataracts, bilateral Cervical spondylosis with radiculopathy Crohn's disease involving terminal ileum (HCC) 01/21/2017 Dr. De Anda DEPRESSIVE DISORDER NEC 05/30/2006 Diverticulitis Esophageal reflux Essential hypertension, benign Fibromyalgia 07/25/[address] Garcia for pain management. History of tobacco use Hyperlipidemia 02/05/2013 Hypothyroidism Internal hemorrhoids without mention of complication Lumbago 05/30/2006 L4,L5 compression fracture Prediabetes 11/23/2012 single episode of A1C>6.5, possibly related to steroid injections PTSD (post-traumatic stress disorder) 2 children from [facility] Sleep apnea PAST SURGICAL HISTORY Procedure Laterality Date APPENDECTOMY 1988 noted appendix visulaized on CT Scan in 2017 DELIVERY ONLY x 4 CHOLECYSTECTOMY 1984 Cholecystectomy COLONOSCOPY 05/22/2020 COLONOSCOPY FLX DX W/COLLJ SPEC WHEN PFRMD 11/14/03 Colonoscopy COLONOSCOPY FLX DX W/COLLJ SPEC WHEN PFRMD 11/05/04 Colonoscopy COLONOSCOPY FLX DX W/COLLJ SPEC WHEN PFRMD 08/15/16 Colonoscopy (MAC) CYSTOURETHROSCOPY 12/2006 ESOPHAGOGASTRODUODENOSCOP Y TRANSORAL DIAGNOSTIC 11/14/03 EGD ESOPHAGOGASTRODUODENOSCOP Y TRANSORAL DIAGNOSTIC 08/15/16 EGD (MAC) ESOPHAGOGASTRODUODENOSCOP Y TRANSORAL DIAGNOSTIC 05/22/2020 EGD LAMINECTOMY W/O FFD 10/28 VERT SEG LUMBAR 2007 Laminectomy, lumbar PAST SURGICAL HISTORY OF cyst removed from Left ovary PAST SURGICAL HISTORY OF 2001 Left ovary removed PAST SURGICAL HISTORY OF 1988 right wrist reconstruction, work related injury PAST SURGICAL HISTORY OF 2004 hysterectomy, adhesion removal. STILL HAS CERVIX FAMILY HISTORY Problem Relation Age of Onset Diabetes Mother Stroke Mother Cancer Father prostate Heart Father Diabetes Father Thyroid Father Hypertension Brother Stroke Brother other (car accident) Brother Cancer Maternal Grandmother Thyroid Paternal Grandmother Stroke Paternal Grandmother age 50s other (car accident) Daughter Coronary Artery Disease Son MVA Diabetes Son Type II Stroke Son Breast Cancer Paternal Aunt other (gallbladder disease) Paternal Aunt Fathers side of the family Colon Cancer Paternal cousin Social History[1] ALLERGIES Allergen Reactions Nickel Rash Can't wear cheap jewelry Penicillins Intolerance Seasonal Allergies Unknown Tetracycline GI Upset, Other: See Comments Sensitive to light Review of Systems Constitutional: Negative for activity change, appetite change, chills, fatigue and fever. HENT: Negative for congestion, ear pain, rhinorrhea and sore throat. Respiratory: Negative for cough and shortness of breath. Cardiovascular: Positive for chest pain. Negative for palpitations. Gastrointestinal: Negative for abdominal pain, diarrhea, nausea and vomiting. Genitourinary: Negative for dysuria, frequency and urgency. Musculoskeletal: Negative for arthralgias and myalgias. Skin: Negative for rash and wound. Neurological: Negative for dizziness and headaches. Psychiatric/Behavioral: Negative for self-injury and suicidal ideas. All other systems reviewed and are negative. Physical Exam Vitals [06/18/25 1227] BP Pulse Temp Temp src Resp SpO2 Weight Height 173/91 66 36.6 ?C (97.9 ?F) Temporal 22 97 % 83.1 kg (183 lb 1.6 oz) -- Physical Exam Vitals and nursing note reviewed. Constitutional: General: She is not in acute distress. Appearance: She is well-developed. HENT: Head: Normocephalic and atraumatic. Nose: Nose normal. Mouth/Throat: Mouth: Mucous membranes are moist. Eyes: Pupils: Pupils are equal, round, and reactive to light. Cardiovascular: Rate and Rhythm: Normal rate and regular rhythm. Heart sounds: Normal heart sounds. No murmur heard. No friction rub. No gallop. Pulmonary: Effort: Pulmonary effort is normal. No respiratory distress. Breath sounds: Normal breath sounds. No stridor. No wheezing, rhonchi or r (more content not included)... Normal [facility] XR RIB/CHST 3V AP RIB/OBL/CH ST Tahir 06-18-2025 XR RIB/CHST 3V AP RIB/OBL/CHST R * * *Final Report* * * DATE OF EXAM: Jun 18 2025 1:52PM LDX 5244 - XR RIB/CHST 3V AP RIB/OBL/CHST R / PROCEDURE REASON: Suspected fracture * * * * Physician Interpretation * * * * EXAMINATION: XR RIB/CHST 3V AP RIB/OBL/CHST R HISTORY: Suspected fracture; Pt comes to ED c/o L rib pain that started yesterday. Pt was bending over into a deep freezer pressing abdomen/ribs onto edge of freezer when she heard a pop and immediately became painful. Pt took tylenol last night with minimal... Suspected fracture. COMPARISON: Chest radiograph 01/01/2016 TECHNIQUE: XR RIB/CHST 3V AP RIB/OBL/CHST R Laterality: RIGHT Number of different views (projections): 3 M: XB_1 FINDINGS: The cardiomediastinal silhouette is within normal limits. No airspace consolidation, pleural effusion, pneumothorax. No displaced rib fracture. IMPRESSION: No acute findings. In Store Banker: KIRSTEN Transcribe Date/Time: Jun 18 2025 1:55P Dictated by : BONITA NULL MD This examination was interpreted and the report reviewed and electronically signed by: BONITA NULL MD on Jun 18 2025 1:57PM EST [id number] Normal [facility] Gastroenterology Visit Repor ton 06-17-2025 Gastroenterology Visit Report [facility] Gastroenterology [address] [place] [address] OFFICE VISIT Date of Service: 06/17/25 MR#: [id number] Acct: [id number] Name: ISAAC RAHMAN Rep #: [id number] : 1960 Provider: Arthur Bull DO Age/Sex: 65/F Location[place] [facility] [place] Status: Signed Intake Vital Signs 01/25/25 11:27 06/13/25 12:29 Height 5 ft 5 ft Intake Visit Reasons: 4 M FU Allergies Penicillins (PCN) Allergy (Verified 06/13/25 12:29) Unknown Tetracyclines Adverse Reaction (Verified 06/13/25 12:29) Nausea Medications ???Medication ???Instructions ???Recorded ???Confirmed ???Type lidocaine 4 % topical patch 1 patch topical DAILY PRN Pain 06/17/25 History Super Collagen Vitamin C 1 tab PO DAILY 01/21/23 06/17/25 H istory spironolactone 25 mg tablet 25 mg PO PRN WATER RETENTION 02/1706/17/25 History loratadine 10 mg tablet 10 mg PO DAILY PRN Inflammation 06/17/25 Rx Held on 04/27/24. #90 tabs Instructions: Order Changed Lactobacillus rhamnosus GG 10 1 cap PO DAILY #90 caps 03/11/24 0 06/17/25 Rx billion cell capsule (Culturelle) inulin 2 gram chewable tablet g PO 08/06/24 06/17/25 History (Fiber Gummies) aspirin 81 mg tablet,delayed 81 mg PO DAILY #90 tabs 08/09/24 0 06/17/25 Rx release (Ecotrin Low Strength) sennosides 8.6 mg-docusate sodium 1 tab-cap PO BID PRN 09/01/24 History 50 mg capsule (Senna Plus) dicyclomine 20 mg tablet 20 mg PO BID PRN abdominal 5 06/17/25 Rx discomfort #60 tabs pantoprazole 40 mg tablet,delayed 40 mg PO DAILY #90 TABLETS 06/17/25 Rx release alendronate 70 mg tablet 70 mg PO QWEEK #12 tabs 01/25/25 0 06/17/25 Rx atorvastatin 40 mg tablet 40 mg PO QHS CHOLESTEROL #90 tabs 01/25/25 06/17/25 Rx calcium 600 mg (as 1 tab PO DAILY #90 tabs 01/25/25 0 06/17/25 Rx carbonate)-vitamin D3 5 mcg (200 unit) tablet levothyroxine 75 mcg tablet 75 mcg PO DAILY #90 TABLETS 06/17/25 Rx magnesium oxide 400 mg PO QDAY #90 caps 01/25/25 0 06/17/25 Rx multivitamin with folic acid 400 1 tab PO DAILY #90 TABLETS 5 06/17/25 Rx mcg tablet (One Daily Essential) ustekinumab 90 mg/mL subcutaneous 90 mg subcut Q4W #1 mL 02/03/25 0 06/17/25 Rx syringe (Stelara) fluticasone propionate 50 2 spray intranasal DAILY PRN 03/2806/17/25 Rx mcg/actuation nasal ALLERGIES #16 grams spray,suspension atenolol 25 mg tablet 25 mg PO DAILY #90 TABLETS 5 06/17/25 Rx lisinopril 40 mg tablet 40 mg PO DAILY #90 tabs 04/18/25 0 06/17/25 Rx ondansetron 4 mg disintegrating 4 mg PO Q8H PRN PRN Nausea #30 tab s 05/24/25 06/17/25 Rx tablet clonazepam 0.5 mg tablet 0.5 mg PO QDAY PRN panic attack 06/17/25 History fluoxetine 20 mg capsule 20 mg PO QDAY 06/17/25 06/17/25 Hi story linaclotide 290 mcg capsule 290 mcg PO DAILY #90 caps 06/17/25 06/17/25 Rx (Linzess) Have you fallen in the past year?: No [facility] Medical History Panic attack Preoperative cardiovascular examination Abnormal EKG LINDY on CPAP Wears glasses Post-menopausal History of Clostridium difficile infection History of steroid therapy Thyroid disease Arthritis High cholesterol Back pain Injury of back Difficulty swallowing Difficulty chewing History of ulceration Diverticulosis History of Crohn's disease Gastric reflux Former smoker CPAP (continuous positive airway pressure) dependence Shortness of breath on exertion History of stress test History of echocardiogram Hypertension Diarrhea Urinary frequency Hematuria Thyroid disease Pneumonia Osteopenia Neuropathy Gallstones H/O emotional problems Hx: UTI (urinary tract infection) Bone fracture Back problem Allergies Liver lesion Clostridioides difficile infection Sleep apnea PTSD (post-traumatic stress disorder) Lumbago Internal hemorrhoids Hypothyroidism Esophageal reflux Diverticulitis Depression Unstable angina Dyslipidemia Essential (primary) hypertension Surgical History History of cardiac catheterization H/O wrist surgery [place] teeth extracted Previous back surgery History of cholecystectomy History of hysterectomy Hx of section Family History Grandmother Bowel disease Myocardial infarction Hypertension Aunt Bowel disease Ovarian cancer Mother Diabetes High cholesterol CVA (cerebral vascular accident) Father Diabetes Heart disease Thyroid disorder Hypertension High cholesterol Myocardial infarction Grandmother Cancer pancreatic Brother Heart disease Other Anemia Colon cancer (more content not included)... Normal [facility] 12 Lead EKGon 06-13-2025 12 Lead EKG [facility] Cardiovascular Services [address] [place] [address] 12 Lead EKG 06/13/25 1239 MR#: [id number] Acct: [id number] Name: ISAAC RAHMAN Rep #: [id number] : 1960 65 From: Raoul Castaneda MD Attending Dr: Status: DEP ER Ordering Dr: Mirella Card MD Date: 06/13/25 Location: ED Sex: F C Admitted: Test Reason : CP Blood Pressure : */* mmHG Vent. Rate : 53 BPM Atrial Rate : 53 BPM P-R Int : 230 ms QRS Dur : 82 ms QT Int : 434 ms P-R-T Axes : 38 36 48 degrees QTcB Int : 407 ms Sinus bradycardia with 1st degree A-V block Low voltage QRS Borderline ECG Confirmed by CAROLYN GREWAL, RAOUL ([id number]), film or videotape editor MARIA C HEIN ([id number]) on 06/14/2025 8:46:41 AM Referred By: Confirmed By: RAOUL CASTANEDA MD 06/14/25845 Raoul Castaneda MD CC: Dr. Andreas Buenrostro MD; Dr. Mirella Card MD Signed Normal [facility] Absolute lymphocyte countOrd ered By: Mirella Card on 06-13-2025 Lymphocytes Auto (Unsp spec) [#/Vol] 3.82 10*3/uL 0.83-4.51 [facility] Absolute neutrophil countOrd ered By: Mirella Card on 06-13-2025 Neutrophils (Bld) [#/Vol] 7.4 10*3/uL 2.0-7.7 [facility] Anion gap in Serum or Plasma Ordered By: Mirella Card on 06-13-2025 Anion gap [Moles/Vol] 13 mmol/L 03-10 [facility] Automated lymphocyte count a s percentage of total leukocytesOrdered By: Mirella Card on 06-13-2025 Lymphocytes/100 WBC Auto (Unsp spec) 31.6 % [facility] BUN/creatinine ratioOrdered By: Mirella Card on 06-13-2025 Urea nitrogen/Creatinine [Mass ratio] 19.1 mg/mg - [facility] Basic Metabolic Profile (BMP )on 06-13-2025 BUN/CRE 19.1 RATIO Normal - [facility] Comment on above: Performed By: #### L 501.4021, L500.2500, L100.0100 #### [facility] [address] [place], [address] Calcium [Mass/Vol] 9.5 mg/dL Normal 7.6-11.0 [facility] Comment on above: Performed By: #### L 501.4021, L500.2500, L100.0100 #### [facility] [address] [place], [address] Chloride [Moles/Vol] 105 mmol/L Normal 98-108 [facility] Comment on above: Performed By: #### L 501.4021, L500.2500, L100.0100 #### [facility] [address] [place], [address] CO2 [Moles/Vol] 21.9 mmol/L Normal 21.0-32.0 [facility] Comment on above: Performed By: #### L 501.4021, L500.2500, L100.0100 #### [facility] [address] [place], [address] Creatinine [Mass/Vol] 0.64 mg/dL Low 0.70-1.20 [facility] Comment on above: Performed By: #### L 501.4021, L500.2500, L100.0100 #### [facility] [address] [place], [address] ECRCL 62.31 ml/min Normal 50-250 [facility] Comment on above: Performed By: #### L 501.4021, L500.2500, L100.0100 #### [facility] [address] [place], [address] GAP 13 Normal 5-15 [facility] Comment on above: Performed By: #### L 501.4021, L500.2500, L100.0100 #### [facility] [address] [place], [address] GFR/1.73 sq M.predicted among non-blacks MDRD (S/P/Bld) [Vol rate/Area] 97 mL/min/{1.73_m2} Normal >60 [facility] Comment on above: Result Comment: mL/m in/1.73m2 CKD-EPI Creatinine Equation (2020) Performed By: #### L 501.4021, L500.2500, L100.0100 #### [facility] [address] [place], [address] Glucose [Mass/Vol] 93 mg/dL Normal 70-99 [facility] Comment on above: Performed By: #### L 501.4021, L500.2500, L100.0100 #### [facility] [address] [place], [address] Potassium [Moles/Vol] 3.9 mmol/L Normal 3.3-5.1 [facility] Comment on above: Result Comment: Hemo lysis present, Results??could be affected. ?? Performed By: #### L 501.4021, L500.2500, L100.0100 #### [facility] [address] [place], [address] Sodium [Moles/Vol] 141 mmol/L Normal 133-145 [facility] Comment on above: Performed By: #### L 501.4021, L500.2500, L100.0100 #### [facility] [address] [place], [address] Urea nitrogen [Mass/Vol] 12 mg/dL Normal 4-19 [facility] Comment on above: Performed By: #### L 501.4021, L500.2500, L100.0100 #### [facility] [address] [place], [address] Basophil percentageOrdered B y: Mirella Card on 06-13-2025 Basophils/100 WBC (Bld) 0.3 % 0-1 [facility] CBC W/Diff, Automatedon 05-27 Absolute Lymph 3.82 X10 3/uL Normal 0.83-4.51 [facility] Comment on above: Performed By: #### L 100.0100 ####[facility] [address] [place], [address] Absolute Neut 7.4 X10 3/uL Normal 2.0-7.7 [facility] Comment on above: Performed By: #### L 100.0100 ####[facility] [address] [place], [address] Basophils/100 WBC (Bld) 0.3 % Normal 0-1 [facility] Comment on above: Performed By: #### L 100.0100 ####[facility] [address] [place], [address] Eosinophils/100 WBC (Bld) 1.8 % Normal 0-5 [facility] Comment on above: Performed By: #### L 100.0100 ####[facility] [address] [place], [address] Erythrocyte distribution width (RBC) [Ratio] 11.9 % Normal 11.6-14.6 [facility] Comment on above: Performed By: #### L 100.0100 ####[facility] [address] [place], [address] Hematocrit (Bld) [Volume fraction] 40.5 % Normal 37-47 [facility] Comment on above: Performed By: #### L 100.0100 ####[facility] [address] [place], [address] Hemoglobin (Bld) [Mass/Vol] 13.9 g/dL Normal 12.0-15.0 [facility] Comment on above: Performed By: #### L 100.0100 ####[facility] [address] [place], [address] IG% 0.200 Normal 0.0-0.9 [facility] Comment on above: Result Comment: IG% - Immature Granulocytes (promyelocytes, myelocytes and metamyelocytes) > 1% indicates that a LEFT SHIFT is Present. Performed By: #### L 100.0100 ####[facility] [address] [place], [address] Lymphocytes/100 WBC (Bld) 31.6 % Normal 19-41 [facility] Comment on above: Performed By: #### L 100.0100 ####[facility] [address] [place], [address] MCH (RBC) [Entitic mass] 31.4 pg Normal 27.0-32.0 [facility] Comment on above: Performed By: #### L 100.0100 ####[facility] [address] [place], [address] MCHC (RBC) [Mass/Vol] 34.3 g/dL Normal 32-36 [facility] Comment on above: Performed By: #### L 100.0100 ####[facility] [address] [place], [address] MCV (RBC) [Entitic vol] 91.6 fL Normal 81-99 [facility] Comment on above: Performed By: #### L 100.0100 ####[facility] [address] [place], [address] Monocytes/100 WBC (Bld) 5.3 % Normal 0-10 [facility] Comment on above: Performed By: #### L 100.0100 ####[facility] [address] [place], [address] Neutrophils/100 WBC (Bld) 60.8 % Normal 47-70 [facility] Comment on above: Performed By: #### L 100.0100 ####[facility] [address] [place], [address] Nucleated RBC (Bld) [#/Vol] 0 10*3/uL Normal 0-5 [facility] Comment on above: Performed By: #### L 100.0100 ####[facility] [address] [place], [address] Platelet mean volume (Bld) [Entitic vol] 9.6 fL Normal 6.2-12.0 [facility] Comment on above: Performed By: #### L 100.0100 ####[facility] [address] [place], [address] Platelets (Bld) [#/Vol] 246 10*3/uL Normal 150-450 [facility] Comment on above: Performed By: #### L 100.0100 ####[facility] [address] [place], [address] RBC (Bld) [#/Vol] 4.42 10*6/uL Normal 4.2-5.4 [facility] Comment on above: Performed By: #### L 100.0100 ####[facility] [address] [place], [address] RDW SD 40.1 fl Normal 35.1-43.9 [facility] Comment on above: Performed By: #### L 100.0100 ####[facility] [address] [place], [address] WBC (Bld) [#/Vol] 12.1 10*3/uL High 4.4-11.0 [facility] Comment on above: Performed By: #### L 100.0100 ####[facility] [address] [place], [address] Absolute Neut Normal 2.0-7.7 [facility] Comment on above: Result Comment: JOSE MARIA SOLANO, SPOKE WITH LORANGYI Performed By: #### L 501.4021, L500.2500, L100.0100 #### [facility] [address] [place], [address] HCT Normal 37-47 [facility] Comment on above: Result Comment: JOSE MARIA SOLANO, SPOKE WITH LORILEI Performed By: #### L 501.4021, L500.2500, L100.0100 #### [facility] [address] [place], [address] HGB Normal 12.0-15.0 [facility] Comment on above: Result Comment: CLOT XIOMARA, SPOKE WITH LORILEI Performed By: #### L 501.4021, L500.2500, L100.0100 #### [facility] [address] [place], [address] MCH Normal 27.0-32.0 [facility] Comment on above: Result Comment: CLOT XIOMARA, SPOKE WITH LORILEI Performed By: #### L 501.4021, L500.2500, L100.0100 #### [facility] [address] [place], [address] MCHC Normal 32-36 [facility] Comment on above: Result Comment: CLOT XIOMARA, SPOKE WITH LORILEI Performed By: #### L 501.4021, L500.2500, L100.0100 #### [facility] [address] [place], [address] MCV Normal 81-99 [facility] Comment on above: Result Comment: CLOT XIOMARA, SPOKE WITH LORILEI Performed By: #### L 501.4021, L500.2500, L100.0100 #### [facility] [address] [place], [address] NEUT% Normal 47-70 [facility] Comment on above: Result Comment: CLOT XIOMARA, SPOKE WITH LORILEI Performed By: #### L 501.4021, L500.2500, L100.0100 #### [facility] [address] [place], [address] PLT Normal 150-450 [facility] Comment on above: Result Comment: CLOT XIOMARA, SPOKE WITH LORILEI Performed By: #### L 501.4021, L500.2500, L100.0100 #### [facility] [address] [place], [address] RBC Normal 4.2-5.4 [facility] Comment on above: Result Comment: CLOT XIOMARA, SPOKE WITH LORILEI Performed By: #### L 501.4021, L500.2500, L100.0100 #### [facility] [address] [place], [address] RDW CV Normal 11.6-14.6 [facility] Comment on above: Result Comment: JOSE MARAI SOLANO, SPOKE WITH LORILEI Performed By: #### L 501.4021, L500.2500, L100.0100 #### [facility] [address] [place], [address] RDW SD Normal 35.1-43.9 [facility] Comment on above: Result Comment: JOSE MARIA SOLANO, SPOKE WITH LORILEI Performed By: #### L 501.4021, L500.2500, L100.0100 #### [facility] [address] [place], [address] WBC Normal 4.4-11.0 [facility] Comment on above: Result Comment: JOSE MARIA SOLANO, SPOKE WITH LORILEI Performed By: #### L 501.4021, L500.2500, L100.0100 #### [facility] [address] [place], [address] Carbon dioxide, total [Moles /volume] in Central venous bloodOrdered By: Mirella Card on 06-13-2025 CO2 [Moles/Vol] 21.9 mmol/L 21.0-32.0 [facility] Chest PA and Lateralon 06-13 Chest PA and Lateral [facility] [address] [place] [address] Chest PA and Lateral MR#: [id number] Acct: [id number] Name: ISAAC RAHMAN Rep #: [id number] : 1960 F 65 From: Sher lozano MD PCP: Dr. Andreas Buenrostro MD Status: REG ER Study: Chest PA and Lateral Date of Exam: 06/13/25 Exam# [id number] Ordering Dr: Mirella Card MD PROCEDURE: CHEST PA AND LATERAL 06/13/2025 REASON FOR EXAM: CHEST PAIN TECHNIQUE: CHEST PA AND LATERAL COMPARISON: None FINDINGS: Hardware: EKG electrodes are seen. Heart: The heart size is normal. Mediastinum: The mediastinal contour is unremarkable. Lungs: Hyperinflation. The lungs are clear. Bones: Degenerative changes are identified within the thoracic spine. RAD/Chest PA and Lateral IMPRESSION: NO ACUTE FINDINGS. Reading Location: [id number] CC: Dr. Andreas Buenrostro MD; Dr. Mirella Card MD In Store Banker: Signed Normal [facility] Chloride assayOrdered By: Brown Card on 06-13-2025 Chloride [Moles/Vol] 105 mmol/L 98-108 [facility] Emergency Department Summary on 06-13-2025 Emergency Department Summary [facility] Medical Records Department [address] [place] [address] Emergency Department Summary 06/13/25 MR#: [id number] Acct: [id number] Name: ISAAC RAHMAN Rep #: [id number] : 1960 65 From: Mirella Card MD PCP: Dr. Andreas Buenrostro MD Status:REG ER Location: ED HPI History of Present Illness Chief Complaint: Chest Pain Narrative Narrative: Patient is a 65-year-old female presenting emergency department for chest pain. Patient has past medical history of hypertension, dyslipidemia, back problems and Crohn's disease. Patient states that it started on . States that it twinges of chest pain. She states they come and go and last few seconds. Reports that on it was after she was working in the garden and she had a twinge of pain between her shoulder blades. States that since then it has ranged from midsternal to right-sided twinges. Reports a mild pressure in her chest right now. Denies any fever, chills, cough, shortness of breath, lower extremity edema. Denies any vomiting. Reports some nausea but states this is not different from her baseline with her Crohn's disease. [facility] Medical History Panic attack Preoperative cardiovascular examination Abnormal EKG LINDY on CPAP Wears glasses Post-menopausal History of Clostridium difficile infection History of steroid therapy Thyroid disease Arthritis High cholesterol Back pain Injury of back Difficulty swallowing Difficulty chewing History of ulceration Diverticulosis History of Crohn's disease Gastric reflux Former smoker CPAP (continuous positive airway pressure) dependence Shortness of breath on exertion History of stress test History of echocardiogram Hypertension Diarrhea Urinary frequency Hematuria Thyroid disease Pneumonia Osteopenia Neuropathy Gallstones H/O emotional problems Hx: UTI (urinary tract infection) Bone fracture Back problem Allergies Liver lesion Clostridioides difficile infection Sleep apnea PTSD (post-traumatic stress disorder) Lumbago Internal hemorrhoids Hypothyroidism Esophageal reflux Diverticulitis Depression Unstable angina Dyslipidemia Essential (primary) hypertension Home Medications ???Medication ???Instructions ???Recorded ???Last Taken ???Type lidocaine 4 % topical patch 1 patch topical DAILY PRN Pain Unknown History Super Collagen Vitamin C 1 tab PO DAILY 01/21/23 Unknown Hi story spironolactone 25 mg tablet 25 mg PO PRN WATER RETENTION 02/17 Unknown History loratadine 10 mg tablet 10 mg PO DAILY PRN Inflammation Unknown Rx Held on 04/27/24. #90 tabs Instructions: Order Changed Lactobacillus rhamnosus GG 10 1 cap PO DAILY #90 caps 03/11/24 U nknown Rx billion cell capsule (Culturelle) inulin 2 gram chewable tablet g PO 08/06/24 Unknown History (Fiber Gummies) aspirin 81 mg tablet,delayed 81 mg PO DAILY #90 tabs 08/09/24 U nknown Rx release (Ecotrin Low Strength) sennosides 8.6 mg-docusate sodium 1 tab-cap PO BID PRN 09/01/24 Unk nown History 50 mg capsule (Senna Plus) dicyclomine 20 mg tablet 20 mg PO BID PRN abdominal 5 Unknown Rx discomfort #60 tabs pantoprazole 40 mg tablet,delayed 40 mg PO DAILY #90 TABLETS Unknown Rx release alendronate 70 mg tablet 70 mg PO QWEEK #12 tabs 01/25/25 U nknown Rx atorvastatin 40 mg tablet 40 mg PO QHS CHOLESTEROL #90 tabs 01/25/25 Unknown Rx calcium 600 mg (as 1 tab PO DAILY #90 tabs 01/25/25 U nknown Rx carbonate)-vitamin D3 5 mcg (200 unit) tablet levothyroxine 75 mcg tablet 75 mcg PO DAILY #90 TABLETS Unknown Rx magnesium oxide 400 mg PO QDAY #90 caps 01/25/25 U nknown Rx multivitamin with folic acid 400 1 tab PO DAILY #90 TABLETS 5 Unknown Rx mcg tablet (One Daily Essential) ustekinumab 90 mg/mL subcutaneous 90 mg subcut Q4W #1 mL 02/03/25 U nknown Rx syringe (Stelara) linaclotide 290 mcg capsule 290 mcg PO DAILY #90 caps 03/18/25 Unknown Rx (Linzess) fluticasone propionate 50 2 spray intranasal DAILY PRN 03/28 Unknown Rx mcg/actuation nasal ALLERGIES #16 grams spray,suspension atenolol 25 mg tablet 25 mg PO DAILY #90 TABLETS 5 Unknown Rx lisinopril 40 mg tablet 40 mg PO DAILY #90 tabs 04/18/25 U nknown Rx ondansetron 4 mg disintegrating 4 mg PO Q8H PRN PRN Nausea #30 tab s 05/24/25 Unknown Rx tablet clonazepam 0.5 mg tablet 0.5 mg PO QDAY PRN panic attack Unknown History Allergy/AdvReac Type Severity Reaction Status Date / Time Penicillins (PCN) Allergy Unknown Verified 06/13/25 12:29 Tetracyclines AdvReac Nausea Verified 06/13/25 12:29 Family History ... Normal [facility] Eosinophil percentageOrdered By: Mirella Card on 06-13-2025 Eosinophils/100 WBC (Bld) 1.8 % 0-5 [facility] Erythrocyte distribution wid th ratioOrdered By: Mirella Card on 06-13-2025 Erythrocyte distribution width (RBC) [Ratio] 11.9 % 11.6-14.6 [facility] Erythrocyte distribution wid th standard deviationOrdered By: Mirella Card on 06-13-2025 Erythrocyte distribution width (RBC) [Ratio] 40.1 fl 35.1-43.9 [facility] Glomerular filtration rate ( GFR) estimation/1.73 sq m using serum, plasma, or whole bOrdered By: Mirella Card on 06-13-2025 GFR/1.73 sq M.predicted among non-blacks MDRD (S/P/Bld) [Vol rate/Area] 97 mL/min/{1.73_m2} >60 [facility] Comment on above: mL/min/1.73m2 CKD-EP I Creatinine Equation (2020) Hematocrit Auto (Bld) [Volum e fraction]Ordered By: Mirella Card on 06-13-2025 Hematocrit (Bld) [Volume fraction] 40.5 % 37-47 [facility] Hemoglobin measurementOrdere d By: Mirella Card on 06-13-2025 Hemoglobin (Bld) [Mass/Vol] 13.9 g/dL 12.0-15.0 [facility] Immature granulocytes/100 WB C Auto (Bld)Ordered By: Mirella Card on 06-13-2025 Immature granulocytes/100 WBC (Bld) 0.200 % 0.0-0.9 [facility] Comment on above: IG% - Immature Granu locytes (promyelocytes, myelocytes and metamyelocytes) > 1% indicates that a LEFT SHIFT is Present. Internal Medicine Office Vis nany 06-13-2025 Internal Medicine Office Visit [facility] [address] [place], [place] [address] OFFICE VISIT Date of Service: 06/13/25 MR#: [id number] Acct: [id number] Name: ISAAC RAHMAN Rep #: [id number] : 1960 Provider: Dr. Andreas gill MD Age/Sex: 65/F Location[facility] Status: Signed Intake Vital Signs 04/11/25 12:54 06/13/25 11:45 Height 5 ft 5 ft Weight: 165 lb BMI 32.2 BP 142/74 H Blood Pressure Location Lt brachial Position Sitting Respiration 16 Pulse 62 Pulse Source Monitor Temp 96.3 F L Temp Source Temporal Pulse Oximetry (%) 97 Oxygen Delivery Method room air Intake Visit Reasons: ACUTE-PAIN BETWEEN SHOULDER BLADES Gut Dropper Required: No Accompanied by: Self Is patient in pain?: Yes (chest and upper back, pressure) Pain scale (1-10): 4 Allergies Penicillins (PCN) Allergy (Verified 06/13/25 11:40) Unknown Tetracyclines Adverse Reaction (Verified 06/13/25 11:40) Nausea Medications ???Medication ???Instructions ???Recorded ???Confirmed ???Type lidocaine 4 % topical patch 1 patch topical DAILY PRN Pain 06/13/25 History Super Collagen Vitamin C 1 tab PO DAILY 01/21/23 06/13/25 H istory spironolactone 25 mg tablet 25 mg PO PRN WATER RETENTION 02/1706/13/25 History loratadine 10 mg tablet 10 mg PO DAILY PRN Inflammation 06/13/25 Rx Held on 04/27/24. #90 tabs Instructions: Order Changed Lactobacillus rhamnosus GG 10 1 cap PO DAILY #90 caps 03/11/24 0 06/13/25 Rx billion cell capsule (Culturelle) inulin 2 gram chewable tablet g PO 08/06/24 06/13/25 History (Fiber Gummies) aspirin 81 mg tablet,delayed 81 mg PO DAILY #90 tabs 08/09/24 0 06/13/25 Rx release (Ecotrin Low Strength) sennosides 8.6 mg-docusate sodium 1 tab-cap PO BID PRN 09/01/24 History 50 mg capsule (Senna Plus) dicyclomine 20 mg tablet 20 mg PO BID PRN abdominal 5 06/13/25 Rx discomfort #60 tabs pantoprazole 40 mg tablet,delayed 40 mg PO DAILY #90 TABLETS 06/13/25 Rx release alendronate 70 mg tablet 70 mg PO QWEEK #12 tabs 01/25/25 0 06/13/25 Rx atorvastatin 40 mg tablet 40 mg PO QHS CHOLESTEROL #90 tabs 01/25/25 06/13/25 Rx calcium 600 mg (as 1 tab PO DAILY #90 tabs 01/25/25 0 06/13/25 Rx carbonate)-vitamin D3 5 mcg (200 unit) tablet levothyroxine 75 mcg tablet 75 mcg PO DAILY #90 TABLETS 06/13/25 Rx magnesium oxide 400 mg PO QDAY #90 caps 01/25/25 0 06/13/25 Rx multivitamin with folic acid 400 1 tab PO DAILY #90 TABLETS 5 06/13/25 Rx mcg tablet (One Daily Essential) ustekinumab 90 mg/mL subcutaneous 90 mg subcut Q4W #1 mL 02/03/25 0 06/13/25 Rx syringe (Stelara) linaclotide 290 mcg capsule 290 mcg PO DAILY #90 caps 03/18/25 06/13/25 Rx (Linzess) fluticasone propionate 50 2 spray intranasal DAILY PRN 03/2806/13/25 Rx mcg/actuation nasal ALLERGIES #16 grams spray,suspension atenolol 25 mg tablet 25 mg PO DAILY #90 TABLETS 5 06/13/25 Rx lisinopril 40 mg tablet 40 mg PO DAILY #90 tabs 04/18/25 0 06/13/25 Rx ondansetron 4 mg disintegrating 4 mg PO Q8H PRN PRN Nausea #30 tab s 05/24/25 06/13/25 Rx tablet clonazepam 0.5 mg tablet 0.5 mg PO QDAY PRN panic attack 06/13/25 History Have you fallen in the past year?: No PFSH Medical History (Updated 06/13/25 @ 11:43 by Beronica Roger) Panic attack Preoperative cardiovascular examination Abnormal EKG LINDY on CPAP Wears glasses Post-menopausal History of Clostridium difficile infection History of steroid therapy Thyroid disease Arthritis High cholesterol Back pain Injury of back Difficulty swallowing Difficulty chewing History of ulceration Diverticulosis History of Crohn's disease Gastric reflux Former smoker CPAP (continuous positive airway pressure) dependence Shortness of breath on exertion History of stress test History of echocardiogram Hypertension Diarrhea Urinary frequency Hematuria Thyroid disease Pneumonia Osteopenia Neuropathy Gallstones H/O emotional problems Hx: UTI (urinary tract infection) Bone fracture Back problem Allergies Liver lesion Clostridioides difficile infection Sleep apnea PTSD (post-traumatic stress disorder) Lumbago Internal hemorrhoids Hypothyroidism Esophageal reflux Diverticulitis Depression Unstable angina Dyslipidemia Essential (primary) hypertension Surgical History History of cardiac catheterization H/O wrist surgery [place] teeth extracted Previous back surgery History of cholecystectomy History of hysterectomy Hx of section Family History Grandmother Bowel disease Myocardial infarct (more content not included)... Normal [facility] L501.4021on 06-13-2025 Trop T High Sen < 6 Normal <=14 [facility] Comment on above: Performed By: #### L 501.4021, L500.2500, L100.0100 #### [facility] [address] [place], [address] MCV (mean corpuscular volume ) determinationOrdered By: Mirella Card on 06-13-2025 MCV (RBC) [Entitic vol] 91.6 fL 81-99 [facility] Mean corpuscular hemoglobin (MCH) determinationOrdered By: Mirella Card on 06-13-2025 MCH (RBC) [Entitic mass] 31.4 pg 27.0-32.0 [facility] Mean corpuscular hemoglobin concentration (MCHC) determinationOrdered By: Mirella Card on 06-13-2025 MCHC (RBC) [Mass/Vol] 34.3 g/dL 32-36 [facility] Mean platelet volume determi nationOrdered By: Mirella Card on 06-13-2025 Platelet mean volume (Bld) [Entitic vol] 9.6 fL 6.2-12.0 [facility] Monocyte percentageOrdered B y: Mirella Card on 06-13-2025 Monocytes/100 WBC (Bld) 5.3 % 0-10 [facility] Neutrophil percentageOrdered By: Mirella Card on 06-13-2025 Neutrophils/100 WBC (Bld) 60.8 % 47-70 [facility] Nucleated red blood cell per centageOrdered By: Mirella Card on 06-13-2025 Nucleated RBC/100 WBC (Bld) [Ratio] 0 % 0-5 [facility] Platelet countOrdered By: Brown Card on 06-13-2025 Platelets (Bld) [#/Vol] 246 10*3/uL 150-450 [facility] Potassium measurement (mass/ volume)Ordered By: Mirella Card on 06-13-2025 Potassium (Unsp spec) [Mass/Vol] 3.9 mmol/L 3.3-5.1 [facility] Comment on above: Hemolysis present, R esults could be affected. RBC Auto (Bld) [#/Vol]Ordere d By: Mirella Kyaw on 06-13-2025 RBC (Bld) [#/Vol] 4.42 10*6/uL 4.2-5.4 [facility] Serum creatinine measurement (mass/volume)Ordered By: Mirella Card on 06-13-2025 Creatinine [Mass/Vol] 0.64 mg/dL Low 0.70-1.20 [facility] Serum glucose measurement (m ass/volume)Ordered By: Mirella Card on 06-13-2025 Glucose [Mass/Vol] 93 mg/dL 70-99 [facility] Serum or plasma calcium lavelle urement (mass/volume)Ordered By: Mirella Card on 06-13-2025 Calcium [Mass/Vol] 9.5 mg/dL 7.6-11.0 [facility] Serum or plasma urea nitroge n measurement (mass/volume)Ordered By: Mirella Card on 06-13-2025 Urea nitrogen [Mass/Vol] 12 mg/dL 4-19 [facility] Sodium levelOrdered By: Paul Card on 06-13-2025 Sodium [Moles/Vol] 141 mmol/L 133-145 [facility] Troponin T HS 2 HRon 025 Trop T High Sen < 6 Normal <=14 [facility] Comment on above: Performed By: #### L 499.0042 ####[facility] [address] [place], [place], [id number] Troponin T HS 4 HRon 025 Trop T High Sen Normal <=14 [facility] Comment on above: Result Comment: Canc elled via OM: Order cancelled - Patient discharged Performed By: #### L 499.0043 ####[facility] [address] [place], [place], [id number] Troponin T.cardiac [Mass/vol ume] in Serum or Plasma by High sensitivity methodOrdered By: Mirella Card on 06-13-2025 Troponin T.cardiac High sensitivity method [Mass/Vol] < 6 ng/L <14 [facility] Troponin T.cardiac High sensitivity method [Mass/Vol] < 6 ng/L <14 [facility] White blood cell (WBC) count Ordered By: Mirella Card on 06-13-2025 WBC (Bld) [#/Vol] 12.1 10*3/uL High 4.4-11.0 [facility] CNOVon 04-22-2025 CNOV Office Visit (ORTHWS ) ----- ISAAC RAHMAN ([id number]) 1960 F Date Time Provider Department 04/22/25 10:00 AM KELIN CONRAD During your visit today, we recorded the following information about you: Mari Maxwell MA 04/22/2025 10:48 AM Signed AMB ROOMING INTAKE FLOWSHEET DATA Risk Screening Do you have concerns about personal safety or safety in the home?: No Pain Pain Level: 4 Pain Location: (bilateral knees) Description: Throbbing Duration Amount of Time: (ongoing) Frequency: Intermittent Intervention/Comfort measure: Other: See comment, Medication (brace and cane) Mari Maxwell MA 04/22/2025 10:48 AM Signed PT ASSESSMENT - CASTING ROOM Isaac presents for Application of brace. Applied Medium wrap around hinged knee brace to Left knee. Patient electronically signed Moe GUPTA. Patient has been instructed in Care and proper application of brace. KAMI Fabian Sondra, PA-C 04/22/2025 10:48 AM Signed Kelin Conrad PA-C Department of Orthopaedics Orthopaedics [address] [facility] [address] Dept: [phone] Dept April 22, 2025 CHIEF COMPLAINT: Pain of the Left Knee and Pain of the Right Knee Bilateral Knee Pain and Swelling/Osteoarthritis: - Onset of increased pain and swelling in bilateral knees x2-3 weeks. - Describes knees as acting up and swollen. - Aggravated by prolonged standing and activity. - Reports a sensation of something slip in the left knee when exiting her vehicle, nearly causing a fall. - Has not had knee injections since 2019, which previously provided significant relief. - Denies current use of knee braces; has used Spandex braces in the past with some benefit. - Has tried Voltaren gel with some relief. Osteoporosis: - Diagnosed with osteoporosis. - Currently weaning off prednisone for Crohn's due to concerns about bone density. Crohn's Disease: - Diagnosed with Crohn's disease, managed with Stelara. - Recent flare-up requiring hospitalization for 6 days. - Currently weaning off prednisone. - Reports strictures and narrowing of the colon. - History of C. diff infection. - Follow-up with roving weight gauger Dr. Bull scheduled for May. Social History: - Significant other has bladder cancer, requiring frequent trips to [facility] for treatment. - Recently lost her mother and has a history of losing children. - Attends therapy regularly. - Desires to stay mobile to care for her significant other and maintain her garden. ASSESSMENT: M17.0 Primary osteoarthritis of knees, bilateral PLAN: 1. Primary osteoarthritis of knees, bilateral (M17.0) - Bilateral knee osteoarthritis confirmed on X-rays; no significant progression compared to 2020 imaging. - Administered bilateral intra-articular corticosteroid injections. - Discussed use of topical analgesics such as Voltaren and Aspercreme for additional pain management. - Fitted with a hinged knee brace for the left knee to provide support and reduce strain. - Advised to monitor symptoms and return for repeat injections if pain recurs, ensuring a minimum interval of 91 days between injections. Ms. Isaac Rahman was advised as to contrast therapies and/or to take analgesics/anti-inflammat ories as needed and all contraindications were reviewed. OBJECTIVE: Ms. Isaac Rahman is a pleasant 64 year old in no apparent distress. Gen:There were no vitals taken for this visit. nl development, obese, no deformities ENT: Normocephalic, normal hearing, moist mucosa CV: Pulses:DP/PT= 2+ and symmetric, capillary refill < 2 secs, no peripheral edema/varicosities Skin: no rash, bruising or lesions. Good turgor. Psych: cooperative and appropriate, alert and oriented x 3, good mood and affect. Musculoskeletal: KNEE EXAM: Left: Alignment: Neutral Range of motion is lacking a few degrees secondary to tight hamstrings degrees in extension and 110 degrees of flexion. Extension Lag: < 10 degrees Pain with ROM: Yes Effusion: Slight Tender to the palpation of Medial femoral condyle and Lateral femoral condyle Pain with patellar compression: Yes Stability: Anterior/Posterior stable and Varus/Valgus stable Hip Exam: flexion to 100+ degrees, full extension, internal/external rotation adequate, and no pain with log roll Neurovascular Status: Sensation Intact, Moves foot and ankle up AND down, and 2+ dorsalis pedis Right: Alignment: Neutral Range of motion is lacking a few degrees secondary to tight hamstrings degrees in extension and 110 degrees of flexion. Extension Lag: < 10 degrees Pain with ROM: Yes Effusion: Slight Tender to the palpation of Posterior Knee and Medial femoral condyle Pain with patellar compression: Yes Stability: Anterior/Posterior stable and Varus/Valgus stable Hip Exam: fle (more content not included)... Normal [facility] Large Joint Arthro/Inj: bila teral knee jointson 04-22-2025 Kelin Conrad PA -C 04/22/2025 10:48 AM Large Joint Arthro/Inj: bilateral knee joints 04/22/2025 10:47 AM The procedure site was prepped in the usual sterile fashion. Site: bilateral knee joints Medications (Right): 6 mg betamethasone acetate-betamethasone sodium phosphate 6 mg/mL Medications (Left): 6 mg betamethasone acetate-betamethasone sodium phosphate 6 mg/mL Anesthetics (Right): 5 mL lidocaine (PF) 10 mg/mL (1 %) Anesthetics (Left): 5 mL lidocaine (PF) 10 mg/mL (1 %) Outcome: Tolerated well, no immediate complications Post-injection instructions were reviewed with the patient and the patient voiced understanding of these instructions. Informed Consent Consent Obtained: Verbal Fowler Protocol A moment to CARE was completed. SIGN IN Sign in communication not applicable due to emergent procedure. Personnel directly involved with the procedure wore the appropriate PPE. Special Equipment: N/A Patient/Surrogate Stated/Verified: Patient name, Date of , Relevant allergies and Intended procedure TIME OUT Relevant labs, photos, and/or imaging studies have been reviewed. Consent documented and matches the intended procedure. Correct side/site marked and visible. Medications required for procedure verified. No fire risk assessment and interventions applicable. No implant(s) inserted. SIGN OUT No specimen collected. No post-procedure POC communication to the patient's multidisciplinary team (including the bedside nurse for hospitalized patients) applicable. [facility] XR KNEE 4V AP/PA/LAT/MERCH B ILon 04-22-2025 XR KNEE 4V AP/PA/LAT/MERCH THOMAS * * *Final Report* * * DATE OF EXAM: Apr 22 2025 9:40AM [id number] [id number] - XR KNEE 4V AP/PA/LAT/MERCH THOMAS / PROCEDURE REASON: multiple diagnoses * * * * Physician Interpretation * * * * PROCEDURE: Bilateral knees INDICATION: Pain in both Pain in both knees, unspecified chronicity .PT STATES BILAT KNEE PAIN TECHNIQUE: XR KNEE 4V AP/PA/LAT/MERCH THOMAS COMPARISON: 05/04/2020 FINDINGS: Moderate bilateral osteoarthrosis, most advanced in the left knee in the medial joint compartment and right knee in the lateral joint compartment. No fracture or dislocation. No joint effusion. Mineralized joint body in the right suprapatellar pouch. No significant varus or valgus angulation. IMPRESSION: Bilateral osteoarthrosis, showing some interval progression In Store Banker: KIRSTEN Transcribe Date/Time: Apr 27 2025 4:28P Dictated by : JOHN SANCHEZ MD This examination was interpreted and the report reviewed and electronically signed by: JOHN SANCHEZ MD on Apr 27 2025 4:30PM EST [id number] Normal [facility] Internal Medicine Office Vis itocarmen 04-09-2025 Internal Medicine Office Visit [facility] [address] [place], [place] [address] OFFICE VISIT Date of Service: 04/11/25 MR#: [id number] Acct: [id number] Name: ISAAC RAHMAN Rep #: [id number] : 1960 Provider: Dr. Andreas gill MD Age/Sex: 64/F Location: [facility] Status: Signed Intake Vital Signs 01/25/25 11:27 04/11/25 12:54 Height 5 ft 5 ft Weight: 168 lb BMI 32.8 BP 162/98 H Blood Pressure Location Lt brachial Position Sitting Respiration 18 Pulse 76 Pulse Source Monitor Temp 98.0 F Temp Source Temporal Pulse Oximetry (%) 94 Oxygen Delivery Method room air Intake Visit Reasons: STRESS AND ANXIETY Chief Complaint: STRESS AND ANXIETY Is patient in pain?: No Allergies Penicillins (PCN) Allergy (Verified 04/11/25 12:59) Unknown Tetracyclines Adverse Reaction (Verified 04/11/25 12:59) Nausea Medications ???Medication ???Instructions ???Recorded ???Confirmed ???Type lidocaine 4 % topical patch 1 patch topical DAILY PRN Pain 04/11/25 History Super Collagen Vitamin C 1 tab PO DAILY 01/21/23 04/11/25 H istory spironolactone 25 mg tablet 25 mg PO PRN WATER RETENTION 02/1704/11/25 History magnesium hydroxide 400 mg/5 mL 400 mg PO DAILY PRN constipation 0 11/03/23 04/11/25 History oral suspension loratadine 10 mg tablet 10 mg PO DAILY PRN Inflammation 04/11/25 Rx Held on 04/27/24. #90 tabs Instructions: Order Changed Lactobacillus rhamnosus GG 10 1 cap PO DAILY #90 caps 03/11/24 0 04/11/25 Rx billion cell capsule (Culturelle) inulin 2 gram chewable tablet g PO 08/06/24 04/11/25 History (Fiber Gummies) aspirin 81 mg tablet,delayed 81 mg PO DAILY #90 tabs 08/09/24 0 04/11/25 Rx release (Ecotrin Low Strength) sennosides 8.6 mg-docusate sodium 1 tab-cap PO BID PRN 09/01/24 History 50 mg capsule (Senna Plus) dicyclomine 20 mg tablet 20 mg PO BID PRN abdominal 5 04/11/25 Rx discomfort #60 tabs pantoprazole 40 mg tablet,delayed 40 mg PO DAILY #90 TABLETS 04/11/25 Rx release alendronate 70 mg tablet 70 mg PO QWEEK #12 tabs 01/25/25 0 04/11/25 Rx atorvastatin 40 mg tablet 40 mg PO QHS CHOLESTEROL #90 tabs 01/25/25 04/11/25 Rx calcium 600 mg (as 1 tab PO DAILY #90 tabs 01/25/25 0 04/11/25 Rx carbonate)-vitamin D3 5 mcg (200 unit) tablet levothyroxine 75 mcg tablet 75 mcg PO DAILY #90 TABLETS 04/11/25 Rx lisinopril 40 mg tablet 40 mg PO DAILY #90 tabs 01/25/25 0 04/11/25 Rx magnesium oxide 400 mg PO QDAY #90 caps 01/25/25 0 04/11/25 Rx multivitamin with folic acid 400 1 tab PO DAILY #90 TABLETS 5 04/11/25 Rx mcg tablet (One Daily Essential) ustekinumab 90 mg/mL subcutaneous 90 mg subcut Q4W #1 mL 02/03/25 0 04/11/25 Rx syringe (Stelara) ondansetron 4 mg disintegrating 4 mg PO Q8H PRN PRN Nausea #30 tab s 02/23/25 04/11/25 Rx tablet linaclotide 290 mcg capsule 290 mcg PO DAILY #90 caps 03/18/25 04/11/25 Rx (Linzess) atenolol 25 mg tablet 25 mg PO DAILY #90 TABLETS 5 04/11/25 Rx fluticasone propionate 50 2 spray intranasal DAILY PRN 03/2804/11/25 Rx mcg/actuation nasal ALLERGIES #16 grams spray,suspension ciprofloxacin HCl 500 mg tablet 500 mg PO BID 7 days #14 tabs 03/2704/11/25 Rx metronidazole 500 mg tablet 500 mg PO TID 7 days #21 tabs 03/2704/11/25 Rx prednisone 20 mg tablet See Rx Instructions .Route 5 04/11/25 Rx .COMPLEX #36 tabs alprazolam 1 mg tablet 1 mg PO BID PRN anxiety #20 tabs 0 04/11/25 04/11/25 Rx Have you fallen in the past year?: No Nurse's Note: pt appears visibly upset and tearful regarding anxiety and stress concerns. encouraged deep breathing,relaxation techniques. Blood pressure remains elevated, pt remains anxious,tearful PFSH Medical History Preoperative cardiovascular examination Abnormal EKG LINDY on CPAP Wears glasses Post-menopausal History of Clostridium difficile infection History of steroid therapy Thyroid disease Arthritis High cholesterol Back pain Injury of back Difficulty swallowing Difficulty chewing History of ulceration Diverticulosis History of Crohn's disease Gastric reflux Former smoker CPAP (continuous positive airway pressure) dependence Shortness of breath on exertion History of stress test History of echocardiogram Hypertension Diarrhea Urinary frequency Hematuria Thyroid disease Pneumonia Osteopenia Neuropathy Gallstones H/O emotional problems Hx: UTI (urinary tract infection) Bone fracture Back problem Allergies Liver lesion Clostridioides difficile infection Sleep apnea PTSD (post-traumatic stress disorder) Lumbago Internal hemorrhoids Hypothyroidi (more content not included)... Normal [facility] Abdomen Single Viewon 2024 Abdomen Single View [facility] [address] [place], [place] [id number] Abdomen Single View MR#: [id number] Acct: [id number] Name: ISAAC RAHMAN Rep #: [id number] : 1960 F 64 From: Venkat Neal MD PCP: Dr. Andreas Buenrostro MD Status: REG CLI Study: Abdomen Single View Date of Exam: 04/08/25 Exam# [id number] Ordering Dr: Arthur Bull DO EXAM: XR Abdomen, 1 View CLINICAL INDICATION: ABDOMINAL PAIN TECHNIQUE: Frontal supine view of the abdomen/pelvis. COMPARISON: No relevant prior studies available. FINDINGS: GASTROINTESTINAL TRACT: Fecal retention in the colon consistent with constipation. No dilation. BONES/JOINTS: Unremarkable. No acute fracture. RAD/Abdomen Single View IMPRESSION: Fecal retention in the colon consistent with constipation. Reading Location: [facility] CC: Dr. Andreas Buenrostro MD; Arthur Bull DO In Store Banker: Signed Normal [facility] Absolute lymphocyte countOrd ered By: Arthur Bull on 04-08-2025 Lymphocytes Auto (Unsp spec) [#/Vol] 4.02 10*3/uL 0.83-4.51 [facility] Absolute neutrophil countOrd ered By: Arthur Bull on 04-08-2025 Neutrophils (Bld) [#/Vol] 6.2 10*3/uL 2.0-7.7 [facility] Anion gap in Serum or Plasma Ordered By: Arthur Bull on 04-08-2025 Anion gap [Moles/Vol] 13 mmol/L 5-15 [facility] Automated lymphocyte count a s percentage of total leukocytesOrdered By: Arthur Bull on 04-08-2025 Lymphocytes/100 WBC Auto (Unsp spec) 35.9 % 19- [facility] BUN/creatinine ratioOrdered By: Arthurravi Bull on 04-08-2025 Urea nitrogen/Creatinine [Mass ratio] 19.7 mg/mg 10- [facility] Basophil percentageOrdered B y: Arthur Bull on 04-08-2025 Basophils/100 WBC (Bld) 0.4 % 0-1 [facility] Bilirubin, totalOrdered By: Arthur Bull on 04-08-2025 Bilirubin [Mass/Vol] 0.35 mg/dL 0.00-1.30 [facility] CBC W/Diff, Automatedon 03-27 Absolute Lymph 4.02 X10 3/uL Normal 0.83-4.51 [facility] Comment on above: Performed By: #### L 100.0100, L500.4050, L501.6710, L101.9900, L504.2610 #### [facility] [address] [place], [address] Absolute Neut 6.2 X10 3/uL Normal 2.0-7.7 [facility] Comment on above: Performed By: #### L 100.0100, L500.4050, L501.6710, L101.9900, L504.2610 #### [facility] [address] [place], [address] Basophils/100 WBC (Bld) 0.4 % Normal 0-1 [facility] Comment on above: Performed By: #### L 100.0100, L500.4050, L501.6710, L101.9900, L504.2610 #### [facility] [address] [place], [address] Eosinophils/100 WBC (Bld) 3.1 % Normal 0-5 [facility] Comment on above: Performed By: #### L 100.0100, L500.4050, L501.6710, L101.9900, L504.2610 #### [facility] [address] [place], [address] Erythrocyte distribution width (RBC) [Ratio] 11.9 % Normal 11.6-14.6 [facility] Comment on above: Performed By: #### L 100.0100, L500.4050, L501.6710, L101.9900, L504.2610 #### [facility] [address] [place], [address] Hematocrit (Bld) [Volume fraction] 39.7 % Normal 37-47 [facility] Comment on above: Performed By: #### L 100.0100, L500.4050, L501.6710, L101.9900, L504.2610 #### [facility] [address] [place], [address] Hemoglobin (Bld) [Mass/Vol] 13.7 g/dL Normal 12.0-15.0 [facility] Comment on above: Performed By: #### L 100.0100, L500.4050, L501.6710, L101.9900, L504.2610 #### [facility] [address] [place], [address] IG% 0.300 Normal 0.0-0.9 [facility] Comment on above: Result Comment: IG% - Immature Granulocytes (promyelocytes, myelocytes and metamyelocytes) > 1% indicates that a LEFT SHIFT is Present. Performed By: #### L 100.0100, L500.4050, L501.6710, L101.9900, L504.2610 #### [facility] [address] [place], [address] Lymphocytes/100 WBC (Bld) 35.9 % Normal 19-41 [facility] Comment on above: Performed By: #### L 100.0100, L500.4050, L501.6710, L101.9900, L504.2610 #### [facility] [address] [place], [address] MCH (RBC) [Entitic mass] 31.5 pg Normal 27.0-32.0 [facility] Comment on above: Performed By: #### L 100.0100, L500.4050, L501.6710, L101.9900, L504.2610 #### [facility] [address] [place], [address] MCHC (RBC) [Mass/Vol] 34.5 g/dL Normal 32-36 [facility] Comment on above: Performed By: #### L 100.0100, L500.4050, L501.6710, L101.9900, L504.2610 #### [facility] [address] [place], [address] MCV (RBC) [Entitic vol] 91.3 fL Normal 81-99 [facility] Comment on above: Performed By: #### L 100.0100, L500.4050, L501.6710, L101.9900, L504.2610 #### [facility] [address] [place], [address] Monocytes/100 WBC (Bld) 5.1 % Normal 0-10 [facility] Comment on above: Performed By: #### L 100.0100, L500.4050, L501.6710, L101.9900, L504.2610 #### [facility] [address] [place], [address] Neutrophils/100 WBC (Bld) 55.2 % Normal 47-70 [facility] Comment on above: Performed By: #### L 100.0100, L500.4050, L501.6710, L101.9900, L504.2610 #### [facility] [address] [place], [address] Nucleated RBC (Bld) [#/Vol] 0 10*3/uL Normal 0-5 [facility] Comment on above: Performed By: #### L 100.0100, L500.4050, L501.6710, L101.9900, L504.2610 #### [facility] [address] [place], [address] Platelet mean volume (Bld) [Entitic vol] 10.3 fL Normal 6.2-12.0 [facility] Comment on above: Performed By: #### L 100.0100, L500.4050, L501.6710, L101.9900, L504.2610 #### [facility] [address] [place], [address] Platelets (Bld) [#/Vol] 306 10*3/uL Normal 150-450 [facility] Comment on above: Performed By: #### L 100.0100, L500.4050, L501.6710, L101.9900, L504.2610 #### [facility] [address] [place], [address] RBC (Bld) [#/Vol] 4.35 10*6/uL Normal 4.2-5.4 [facility] Comment on above: Performed By: #### L 100.0100, L500.4050, L501.6710, L101.9900, L504.2610 #### [facility] [address] [place], [address] RDW SD 39.8 fl Normal 35.1-43.9 [facility] Comment on above: Performed By: #### L 100.0100, L500.4050, L501.6710, L101.9900, L504.2610 #### [facility] [address] [place], [address] WBC (Bld) [#/Vol] 11.2 10*3/uL High 4.4-11.0 [facility] Comment on above: Performed By: #### L 100.0100, L500.4050, L501.6710, L101.9900, L504.2610 #### [facility] [address] [place], [address] CRPon 04-08-2025 C-REACTIVE PROT < 3.00 Normal 0.0-3.0 [facility] Comment on above: Performed By: #### L 100.0100, L500.4050, L501.6710, L101.9900, L504.2610 ####[facility] [address] [place], [address] Carbon dioxide, total [Moles /volume] in Central venous bloodOrdered By: Arthur Bull on 04-08-2025 CO2 [Moles/Vol] 23.6 mmol/L 21.0-32.0 [facility] Chloride assayOrdered By: Ra edward Bull on 04-08-2025 Chloride [Moles/Vol] 103 mmol/L 98-108 [facility] Comprehensive Metabolic Prof ilon 04-08-2025 Albumin [Mass/Vol] 4.3 g/dL Normal 3.4-4.8 [facility] Comment on above: Performed By: #### L 100.0100, L500.4050, L501.6710, L101.9900, L504.2610 ####[facility] [address] [place], [address] Albumin/Globulin [Mass ratio] 1.5 {ratio} Normal 0.9-2.4 [facility] Comment on above: Performed By: #### L 100.0100, L500.4050, L501.6710, L101.9900, L504.2610 ####[facility] [address] [place], [address] ALK PHOS 68 U/L Normal 35-104 [facility] Comment on above: Performed By: #### L 100.0100, L500.4050, L501.6710, L101.9900, L504.2610 ####[facility] [address] [place], [address] ALT [Catalytic activity/Vol] 16 U/L Normal <=34 [facility] Comment on above: Performed By: #### L 100.0100, L500.4050, L501.6710, L101.9900, L504.2610 ####[facility] [address] [place], [address] AST [Catalytic activity/Vol] 18 U/L Normal <=31 [facility] Comment on above: Performed By: #### L 100.0100, L500.4050, L501.6710, L101.9900, L504.2610 ####[facility] [address] [place], [address] Bilirubin [Mass/Vol] 0.35 mg/dL Normal 0.00-1.30 [facility] Comment on above: Performed By: #### L 100.0100, L500.4050, L501.6710, L101.9900, L504.2610 ####[facility] [address] [place], [address] BUN/CRE 19.7 RATIO Normal 10-20 [facility] Comment on above: Performed By: #### L 100.0100, L500.4050, L501.6710, L101.9900, L504.2610 ####[facility] [address] [place], [address] Calcium [Mass/Vol] 9.2 mg/dL Normal 7.6-11.0 [facility] Comment on above: Performed By: #### L 100.0100, L500.4050, L501.6710, L101.9900, L504.2610 ####[facility] [address] [place], [address] Chloride [Moles/Vol] 103 mmol/L Normal 98-108 [facility] Comment on above: Performed By: #### L 100.0100, L500.4050, L501.6710, L101.9900, L504.2610 ####[facility] [address] [place], [address] CO2 [Moles/Vol] 23.6 mmol/L Normal 21.0-32.0 [facility] Comment on above: Performed By: #### L 100.0100, L500.4050, L501.6710, L101.9900, L504.2610 ####[facility] [address] [place], [address] Creatinine [Mass/Vol] 0.63 mg/dL Low 0.70-1.20 [facility] Comment on above: Performed By: #### L 100.0100, L500.4050, L501.6710, L101.9900, L504.2610 ####[facility] [address] [place], [address] GAP 13 Normal 5-15 [facility] Comment on above: Performed By: #### L 100.0100, L500.4050, L501.6710, L101.9900, L504.2610 ####[facility] [address] [place], [address] GFR/1.73 sq M.predicted among non-blacks MDRD (S/P/Bld) [Vol rate/Area] 98 mL/min/{1.73_m2} Normal >60 [facility] Comment on above: Result Comment: mL/m in/1.73m2 CKD-EPI Creatinine Equation (2020) Performed By: #### L 100.0100, L500.4050, L501.6710, L101.9900, L504.2610 ####[facility] [address] [place], [address] Globulin (S) [Mass/Vol] 2.9 g/dL Normal 2.2-4.2 [facility] Comment on above: Performed By: #### L 100.0100, L500.4050, L501.6710, L101.9900, L504.2610 ####[facility] [address] [place], [address] Glucose [Mass/Vol] 104 mg/dL High 70-99 [facility] Comment on above: Performed By: #### L 100.0100, L500.4050, L501.6710, L101.9900, L504.2610 ####[facility] [address] [place], [address] Potassium [Moles/Vol] 4.0 mmol/L Normal 3.3-5.1 [facility] Comment on above: Performed By: #### L 100.0100, L500.4050, L501.6710, L101.9900, L504.2610 ####[facility] [address] [place], [address] Sodium [Moles/Vol] 140 mmol/L Normal 133-145 [facility] Comment on above: Performed By: #### L 100.0100, L500.4050, L501.6710, L101.9900, L504.2610 ####[facility] [address] [place], [place], [address] T PROT 7.2 g/dL Normal 5.9-8.4 [facility] Comment on above: Performed By: #### L 100.0100, L500.4050, L501.6710, L101.9900, L504.2610 ####[facility] [address] [place], [place], [address] Urea nitrogen [Mass/Vol] 13 mg/dL Normal 4-19 [facility] Comment on above: Performed By: #### L 100.0100, L500.4050, L501.6710, L101.9900, L504.2610 ####[facility] [address] [place], [place], [address] Eosinophil percentageOrdered By: Arthur Bull on 04-08-2025 Eosinophils/100 WBC (Bld) 3.1 % 0-5 [facility] Erythrocyte Sed Rateon 04-08 SED RATE 14 mm/hr Normal 0-30 [facility] Comment on above: Performed By: #### L 100.0100, L500.4050, L501.6710, L101.9900, L504.2610 #### [facility] [address] [place], [place], [address] Erythrocyte distribution wid th ratioOrdered By: Arthur Bull on 04-08-2025 Erythrocyte distribution width (RBC) [Ratio] 11.9 % 11.6-14.6 [facility] Erythrocyte distribution wid th standard deviationOrdered By: Arthur Bull on 04-08-2025 Erythrocyte distribution width (RBC) [Ratio] 39.8 fl 35.1-43.9 [facility] Erythrocyte sedimentation ra teOrdered By: Arthur Bull on 04-08-2025 ESR (Bld) [Velocity] 14 mm/h 0-30 [facility] Glomerular filtration rate ( GFR) estimation/1.73 sq m using serum, plasma, or whole bOrdered By: Arthur Bull on 04-08-2025 GFR/1.73 sq M.predicted among non-blacks MDRD (S/P/Bld) [Vol rate/Area] 98 mL/min/{1.73_m2} >60 [facility] Comment on above: mL/min/1.73m2 CKD-EP I Creatinine Equation (2020) Hematocrit Auto (Bld) [Volum e fraction]Ordered By: Arthur Bull on 04-08-2025 Hematocrit (Bld) [Volume fraction] 39.7 % 37-47 [facility] Hemoglobin measurementOrdere d By: Arthur Bull on 04-08-2025 Hemoglobin (Bld) [Mass/Vol] 13.7 g/dL 12.0-15.0 [facility] Immature granulocytes/100 WB C Auto (Bld)Ordered By: Arthur Bull on 04-08-2025 Immature granulocytes/100 WBC (Bld) 0.300 % 0.0-0.9 [facility] Comment on above: IG% - Immature Granu locytes (promyelocytes, myelocytes and metamyelocytes) > 1% indicates that a LEFT SHIFT is Present. LDHon 04-08-2025 LDH 158 U/L Normal 84-246 [facility] Comment on above: Order Comment: 1 Performed By: #### L 100.0100, L500.4050, L501.6710, L101.9900, L504.2610 ####[facility] [address] [place], [address] Laboratory - Chemistry and C hemistry - challengeOrdered By: Arthur Bull on 04-08-2025 AST [Catalytic activity/Vol] 18 U/L <32 [facility] Lactate dehydrogenase (LDH) measurementOrdered By: Arthurravi Bull on 04-08-2025 LDH [Catalytic activity/Vol] 158 U/L 84-246 [facility] MCV (mean corpuscular volume ) determinationOrdered By: Arthur Bull on 04-08-2025 MCV (RBC) [Entitic vol] 91.3 fL 81-99 [facility] Mean corpuscular hemoglobin (MCH) determinationOrdered By: Arthur Bull on 04-08-2025 MCH (RBC) [Entitic mass] 31.5 pg 27.0-32.0 [facility] Mean corpuscular hemoglobin concentration (MCHC) determinationOrdered By: Arthur Bull on 04-08-2025 MCHC (RBC) [Mass/Vol] 34.5 g/dL 32-36 [facility] Mean platelet volume determi nationOrdered By: Arthur Bull on 04-08-2025 Platelet mean volume (Bld) [Entitic vol] 10.3 fL 6.2-12.0 [facility] Monocyte percentageOrdered B y: Arthur Bull on 04-08-2025 Monocytes/100 WBC (Bld) 5.1 % 0-10 [facility] Neutrophil percentageOrdered By: Arthur Bull on 04-08-2025 Neutrophils/100 WBC (Bld) 55.2 % 47-70 [facility] Nucleated red blood cell per centageOrdered By: Arthur Bull on 04-08-2025 Nucleated RBC/100 WBC (Bld) [Ratio] 0 % 0-5 [facility] Platelet countOrdered By: Ra edward Bull on 04-08-2025 Platelets (Bld) [#/Vol] 306 10*3/uL 150-450 [facility] Potassium measurement (mass/ volume)Ordered By: Arthur Bull on 04-08-2025 Potassium (Unsp spec) [Mass/Vol] 4.0 mmol/L 3.3-5.1 [facility] RBC Auto (Bld) [#/Vol]Ordere d By: Arthur Bull on 04-08-2025 RBC (Bld) [#/Vol] 4.35 10*6/uL 4.2-5.4 [facility] Serum creatinine measurement (mass/volume)Ordered By: Arthur Bull on 04-08-2025 Creatinine [Mass/Vol] 0.63 mg/dL Low 0.70-1.20 [facility] Serum globulin measurementOr dered By: Arthur Bull on 04-08-2025 Globulin (S) [Mass/Vol] 2.9 g/dL 2.2-4.2 [facility] Serum glucose measurement (m ass/volume)Ordered By: Arthur Bull on 04-08-2025 Glucose [Mass/Vol] 104 mg/dL High 70-99 [facility] Serum or plasma C reactive p rotein measurement (mass/volume)Ordered By: Arthur Bull on 04-08-2025 CRP [Mass/Vol] mg/L 0.0-3.0 [facility] Serum or plasma alanine alvarez otransferase (ALT) measurementOrdered By: Arthur Bull on 04-08-2025 ALT [Catalytic activity/Vol] 16 U/L <35 [facility] Serum or plasma albumin lavelle urement (mass/volume)Ordered By: Arthur Bull on 04-08-2025 Albumin [Mass/Vol] 4.3 g/dL 3.4-4.8 [facility] Serum or plasma albumin/glob ulin mass ratioOrdered By: Arthur Bull on 04-08-2025 Albumin/Globulin [Mass ratio] 1.5 {ratio} 0.9-2.4 [facility] Serum or plasma alkaline veronika sphatase measurementOrdered By: Arthur Bull on 04-08-2025 ALP [Catalytic activity/Vol] 68 U/L 35-104 [facility] Serum or plasma calcium lavelle urement (mass/volume)Ordered By: Arthur Bull on 04-08-2025 Calcium [Mass/Vol] 9.2 mg/dL 7.6-11.0 [facility] Serum or plasma urea nitroge n measurement (mass/volume)Ordered By: Arthur Bull on 04-08-2025 Urea nitrogen [Mass/Vol] 13 mg/dL 4-19 [facility] Sodium levelOrdered By: Gael Bruce on 04-08-2025 Sodium [Moles/Vol] 140 mmol/L 133-145 [facility] Total proteinOrdered By: Steve Bull on 04-08-2025 Protein [Mass/Vol] 7.2 g/dL 5.9-8.4 [facility] White blood cell (WBC) count Ordered By: Arthur Bull on 04-08-2025 WBC (Bld) [#/Vol] 11.2 10*3/uL High 4.4-11.0 [facility] Absolute lymphocyte countOrd ered By: Arthur Bull on 02-14-2025 Lymphocytes Auto (Unsp spec) [#/Vol] 2.97 10*3/uL 0.83-4.51 [facility] Absolute neutrophil countOrd ered By: Arthur Bull on 02-14-2025 Neutrophils (Bld) [#/Vol] 7.4 10*3/uL 2.0-7.7 [facility] Amylaseon 02-14-2025 MARI 50 U/L Normal 28-100 [facility] Comment on above: Performed By: #### L 501.2450, L501.2400, L101.9900, L500.4050, L100.0100, L501.6710 ####[facility] [address] [place], [place], [id number] Anion gap in Serum or Plasma Ordered By: Arthur Bull on 02-14-2025 Anion gap [Moles/Vol] 12 mmol/L 5-15 [facility] Automated lymphocyte count a s percentage of total leukocytesOrdered By: Arthur Bull on 02-14-2025 Lymphocytes/100 WBC Auto (Unsp spec) 26.7 % 19-41 [facility] BUN/creatinine ratioOrdered By: Arthurravi Bull on 02-14-2025 Urea nitrogen/Creatinine [Mass ratio] 21.8 mg/mg High 10-20 [facility] Basophil percentageOrdered B y: Arthur Bull on 02-14-2025 Basophils/100 WBC (Bld) 0.4 % 0-1 [facility] Bilirubin, totalOrdered By: Arthur Bull on 02-14-2025 Bilirubin [Mass/Vol] 0.59 mg/dL 0.00-1.30 [facility] CBC W/Diff, Automatedon 01-26 Absolute Lymph 2.97 X10 3/uL Normal 0.83-4.51 [facility] Comment on above: Performed By: #### L 501.2450, L501.2400, L101.9900, L500.4050, L100.0100, L501.6710 ####[facility] [address] [place], [address] Absolute Neut 7.4 X10 3/uL Normal 2.0-7.7 [facility] Comment on above: Performed By: #### L 501.2450, L501.2400, L101.9900, L500.4050, L100.0100, L501.6710 ####[facility] [address] [place], [address] Basophils/100 WBC (Bld) 0.4 % Normal 0-1 [facility] Comment on above: Performed By: #### L 501.2450, L501.2400, L101.9900, L500.4050, L100.0100, L501.6710 ####[facility] [address] [place], [address] Eosinophils/100 WBC (Bld) 1.4 % Normal 0-5 [facility] Comment on above: Performed By: #### L 501.2450, L501.2400, L101.9900, L500.4050, L100.0100, L501.6710 ####[facility] [address] [place], [address] Erythrocyte distribution width (RBC) [Ratio] 11.5 % Low 11.6-14.6 [facility] Comment on above: Performed By: #### L 501.2450, L501.2400, L101.9900, L500.4050, L100.0100, L501.6710 ####[facility] [address] [place], [address] Hematocrit (Bld) [Volume fraction] 42.9 % Normal 37-47 [facility] Comment on above: Performed By: #### L 501.2450, L501.2400, L101.9900, L500.4050, L100.0100, L501.6710 ####[facility] [address] [place], [address] Hemoglobin (Bld) [Mass/Vol] 14.4 g/dL Normal 12.0-15.0 [facility] Comment on above: Performed By: #### L 501.2450, L501.2400, L101.9900, L500.4050, L100.0100, L501.6710 ####[facility] [address] [place], [address] IG% 0.300 Normal 0.0-0.9 [facility] Comment on above: Result Comment: IG% - Immature Granulocytes (promyelocytes, myelocytes and metamyelocytes) > 1% indicates that a LEFT SHIFT is Present. Performed By: #### L 501.2450, L501.2400, L101.9900, L500.4050, L100.0100, L501.6710 ####[facility] [address] [place], [address] Lymphocytes/100 WBC (Bld) 26.7 % Normal 19-41 [facility] Comment on above: Performed By: #### L 501.2450, L501.2400, L101.9900, L500.4050, L100.0100, L501.6710 ####[facility] [address] [place], [address] MCH (RBC) [Entitic mass] 31.1 pg Normal 27.0-32.0 [facility] Comment on above: Performed By: #### L 501.2450, L501.2400, L101.9900, L500.4050, L100.0100, L501.6710 ####[facility] [address] [place], [address] MCHC (RBC) [Mass/Vol] 33.6 g/dL Normal 32-36 [facility] Comment on above: Performed By: #### L 501.2450, L501.2400, L101.9900, L500.4050, L100.0100, L501.6710 ####[facility] [address] [place], [address] MCV (RBC) [Entitic vol] 92.7 fL Normal 81-99 [facility] Comment on above: Performed By: #### L 501.2450, L501.2400, L101.9900, L500.4050, L100.0100, L501.6710 ####[facility] [address] [place], [address] Monocytes/100 WBC (Bld) 4.8 % Normal 0-10 [facility] Comment on above: Performed By: #### L 501.2450, L501.2400, L101.9900, L500.4050, L100.0100, L501.6710 ####[facility] [address] [place], [address] Neutrophils/100 WBC (Bld) 66.4 % Normal 47-70 [facility] Comment on above: Performed By: #### L 501.2450, L501.2400, L101.9900, L500.4050, L100.0100, L501.6710 ####[facility] [address] [place], [address] Nucleated RBC (Bld) [#/Vol] 0 10*3/uL Normal 0-5 [facility] Comment on above: Performed By: #### L 501.2450, L501.2400, L101.9900, L500.4050, L100.0100, L501.6710 ####[facility] [address] [place], [address] Platelet mean volume (Bld) [Entitic vol] 10.1 fL Normal 6.2-12.0 [facility] Comment on above: Performed By: #### L 501.2450, L501.2400, L101.9900, L500.4050, L100.0100, L501.6710 ####[facility] [address] [place], [address] Platelets (Bld) [#/Vol] 270 10*3/uL Normal 150-450 [facility] Comment on above: Performed By: #### L 501.2450, L501.2400, L101.9900, L500.4050, L100.0100, L501.6710 ####[facility] [address] [place], [address] RBC (Bld) [#/Vol] 4.63 10*6/uL Normal 4.2-5.4 [facility] Comment on above: Performed By: #### L 501.2450, L501.2400, L101.9900, L500.4050, L100.0100, L501.6710 ####[facility] [address] [place], [address] RDW SD 39.2 fl Normal 35.1-43.9 [facility] Comment on above: Performed By: #### L 501.2450, L501.2400, L101.9900, L500.4050, L100.0100, L501.6710 ####[facility] [address] [place], [address] WBC (Bld) [#/Vol] 11.1 10*3/uL High 4.4-11.0 [facility] Comment on above: Performed By: #### L 501.2450, L501.2400, L101.9900, L500.4050, L100.0100, L501.6710 ####[facility] [address] [place], [address] CRPon 02-14-2025 C-REACTIVE PROT < 3.00 Normal 0.0-3.0 [facility] Comment on above: Performed By: #### L 501.2450, L501.2400, L101.9900, L500.4050, L100.0100, L501.6710 ####[facility] [address] [place], [address] Carbon dioxide, total [Moles /volume] in Central venous bloodOrdered By: Arthur Bull on 02-14-2025 CO2 [Moles/Vol] 24.1 mmol/L 21.0-32.0 [facility] Chloride assayOrdered By: Ra edward Bull on 02-14-2025 Chloride [Moles/Vol] 102 mmol/L 98-108 [facility] Comprehensive Metabolic Prof ilon 02-14-2025 Albumin [Mass/Vol] 4.5 g/dL Normal 3.4-4.8 [facility] Comment on above: Performed By: #### L 501.2450, L501.2400, L101.9900, L500.4050, L100.0100, L501.6710 ####[facility] [address] [place], [address] Albumin/Globulin [Mass ratio] 1.4 {ratio} Normal 0.9-2.4 [facility] Comment on above: Performed By: #### L 501.2450, L501.2400, L101.9900, L500.4050, L100.0100, L501.6710 ####[facility] [address] [place], [address] ALK PHOS 80 U/L Normal 35-104 [facility] Comment on above: Performed By: #### L 501.2450, L501.2400, L101.9900, L500.4050, L100.0100, L501.6710 ####[facility] [address] [place], [address] ALT [Catalytic activity/Vol] 17 U/L Normal <=34 [facility] Comment on above: Performed By: #### L 501.2450, L501.2400, L101.9900, L500.4050, L100.0100, L501.6710 ####[facility] [address] [place], [address] AST [Catalytic activity/Vol] 20 U/L Normal <=31 [facility] Comment on above: Performed By: #### L 501.2450, L501.2400, L101.9900, L500.4050, L100.0100, L501.6710 ####[facility] [address] [place], [address] Bilirubin [Mass/Vol] 0.59 mg/dL Normal 0.00-1.30 [facility] Comment on above: Performed By: #### L 501.2450, L501.2400, L101.9900, L500.4050, L100.0100, L501.6710 ####[facility] [address] [place], [address] BUN/CRE 21.8 RATIO High 10-20 [facility] Comment on above: Performed By: #### L 501.2450, L501.2400, L101.9900, L500.4050, L100.0100, L501.6710 ####[facility] [address] [place], [address] Calcium [Mass/Vol] 9.5 mg/dL Normal 7.6-11.0 [facility] Comment on above: Performed By: #### L 501.2450, L501.2400, L101.9900, L500.4050, L100.0100, L501.6710 ####[facility] [address] [place], [address] Chloride [Moles/Vol] 102 mmol/L Normal 98-108 [facility] Comment on above: Performed By: #### L 501.2450, L501.2400, L101.9900, L500.4050, L100.0100, L501.6710 ####[facility] [address] [place], [address] CO2 [Moles/Vol] 24.1 mmol/L Normal 21.0-32.0 [facility] Comment on above: Performed By: #### L 501.2450, L501.2400, L101.9900, L500.4050, L100.0100, L501.6710 ####[facility] [address] [place], [address] Creatinine [Mass/Vol] 0.66 mg/dL Low 0.70-1.20 [facility] Comment on above: Performed By: #### L 501.2450, L501.2400, L101.9900, L500.4050, L100.0100, L501.6710 ####[facility] [address] [place], [address] GAP 12 Normal 5-15 [facility] Comment on above: Performed By: #### L 501.2450, L501.2400, L101.9900, L500.4050, L100.0100, L501.6710 ####[facility] [address] [place], [address] GFR/1.73 sq M.predicted among non-blacks MDRD (S/P/Bld) [Vol rate/Area] 97 mL/min/{1.73_m2} Normal >60 [facility] Comment on above: Result Comment: mL/m in/1.73m2 CKD-EPI Creatinine Equation (2020) Performed By: #### L 501.2450, L501.2400, L101.9900, L500.4050, L100.0100, L501.6710 ####[facility] [address] [place], [address] Globulin (S) [Mass/Vol] 3.3 g/dL Normal 2.2-4.2 [facility] Comment on above: Performed By: #### L 501.2450, L501.2400, L101.9900, L500.4050, L100.0100, L501.6710 ####[facility] [address] [place], [address] Glucose [Mass/Vol] 125 mg/dL High 70-99 [facility] Comment on above: Performed By: #### L 501.2450, L501.2400, L101.9900, L500.4050, L100.0100, L501.6710 ####[facility] [address] [place], [address] Potassium [Moles/Vol] 3.9 mmol/L Normal 3.3-5.1 [facility] Comment on above: Performed By: #### L 501.2450, L501.2400, L101.9900, L500.4050, L100.0100, L501.6710 ####[facility] [address] [place], [address] Sodium [Moles/Vol] 139 mmol/L Normal 133-145 [facility] Comment on above: Performed By: #### L 501.2450, L501.2400, L101.9900, L500.4050, L100.0100, L501.6710 ####[facility] [address] [place], [address] T PROT 7.8 g/dL Normal 5.9-8.4 [facility] Comment on above: Performed By: #### L 501.2450, L501.2400, L101.9900, L500.4050, L100.0100, L501.6710 ####[facility] [address] [place], [address] Urea nitrogen [Mass/Vol] 14 mg/dL Normal 4-19 [facility] Comment on above: Performed By: #### L 501.2450, L501.2400, L101.9900, L500.4050, L100.0100, L501.6710 ####[facility] [address] [place], [address] Eosinophil percentageOrdered By: Arthur Bull on 02-14-2025 Eosinophils/100 WBC (Bld) 1.4 % 0-5 [facility] Erythrocyte Sed Rateon 02-14 SED RATE 18 mm/hr Normal 0-30 [facility] Comment on above: Performed By: #### L 501.2450, L501.2400, L101.9900, L500.4050, L100.0100, L501.6710 ####[facility] [address] [place], [place], [address] Erythrocyte distribution wid th ratioOrdered By: Arthur Bull on 02-14-2025 Erythrocyte distribution width (RBC) [Ratio] 11.5 % Low 11.6-14.6 [facility] Erythrocyte distribution wid th standard deviationOrdered By: Arthur Bull on 02-14-2025 Erythrocyte distribution width (RBC) [Ratio] 39.2 fl 35.1-43.9 [facility] Erythrocyte sedimentation ra teOrdered By: Arthur Bull on 02-14-2025 ESR (Bld) [Velocity] 18 mm/h 0-30 [facility] Gastroenterology Visit Repor ton 02-14-2025 Gastroenterology Visit Report [facility] [address] [place] [address] OFFICE VISIT Date of Service: 02/14/25 MR#: [id number] Acct: [id number] Name: ISAAC RAHMAN Rep #: [id number] : 1960 Provider: Arthur Bull DO Age/Sex: 64/F Location[place] [facility] [place] Status: Signed Intake Vital Signs 08/06/24 07:28 01/25/25 11:27 Height 5 ft 5 ft Intake Visit Reasons: 6 M FU Chief Complaint: Allergies Penicillins (PCN) Allergy (Verified 01/25/25 11:23) Unknown Tetracyclines Adverse Reaction (Verified 01/25/25 11:23) Nausea Medications ???Medication ???Instructions ???Recorded ???Confirmed ???Type lidocaine 4 % topical patch 1 patch topical DAILY PRN Pain 02/14/25 History Super Collagen Vitamin C 1 tab PO DAILY 01/21/23 02/14/25 H istory spironolactone 25 mg tablet 25 mg PO PRN WATER RETENTION 02/1702/14/25 History magnesium hydroxide 400 mg/5 mL 400 mg PO DAILY PRN constipation 0 11/03/23 02/14/25 History oral suspension loratadine 10 mg tablet 10 mg PO DAILY PRN Inflammation 02/14/25 Rx Held on 04/27/24. #90 tabs Instructions: Order Changed Lactobacillus rhamnosus GG 10 1 cap PO DAILY #90 caps 03/11/24 0 02/14/25 Rx billion cell capsule (Culturelle) inulin 2 gram chewable tablet g PO 08/06/24 02/14/25 History (Fiber Gummies) aspirin 81 mg tablet,delayed 81 mg PO DAILY #90 tabs 08/09/24 0 02/14/25 Rx release (Ecotrin Low Strength) sennosides 8.6 mg-docusate sodium 1 tab-cap PO BID PRN 09/01/24 History 50 mg capsule (Senna Plus) linaclotide 290 mcg capsule 290 mcg PO DAILY #90 caps 09/03/24 02/14/25 Rx (Linzess) ondansetron 4 mg disintegrating 4 mg PO Q8H PRN PRN Nausea #30 tab s 11/22/24 02/14/25 Rx tablet dicyclomine 20 mg tablet 20 mg PO BID PRN abdominal 5 02/14/25 Rx discomfort #60 tabs pantoprazole 40 mg tablet,delayed 40 mg PO DAILY #90 TABLETS 02/14/25 Rx release atenolol 25 mg tablet 25 mg PO DAILY #90 TABLETS 5 02/14/25 Rx fluticasone propionate 50 2 spray intranasal DAILY PRN 12/2702/14/25 Rx mcg/actuation nasal ALLERGIES #16 grams spray,suspension alendronate 70 mg tablet 70 mg PO QWEEK #12 tabs 01/25/25 0 02/14/25 Rx atorvastatin 40 mg tablet 40 mg PO QHS CHOLESTEROL #90 tabs 01/25/25 02/14/25 Rx calcium 600 mg (as 1 tab PO DAILY #90 tabs 01/25/25 0 02/14/25 Rx carbonate)-vitamin D3 5 mcg (200 unit) tablet hydroxyzine HCl 10 mg tablet 10 mg PO Q8H PRN anxiety #20 tabs 01/25/25 02/14/25 Rx levothyroxine 75 mcg tablet 75 mcg PO DAILY #90 TABLETS 02/14/25 Rx lisinopril 40 mg tablet 40 mg PO DAILY #90 tabs 01/25/25 0 02/14/25 Rx magnesium oxide 400 mg PO QDAY #90 caps 01/25/25 0 02/14/25 Rx multivitamin with folic acid 400 1 tab PO DAILY #90 TABLETS 5 02/14/25 Rx mcg tablet (One Daily Essential) ustekinumab 90 mg/mL subcutaneous 90 mg subcut Q4W #1 mL 02/03/25 0 02/14/25 Rx syringe (Stelara) Have you fallen in the past year?: No PFSH Medical History (Updated 01/25/25 @ 15:[address] Andreas Buenrostro MD) Preoperative cardiovascular examination Abnormal EKG LINDY on CPAP Wears glasses Post-menopausal History of Clostridium difficile infection History of steroid therapy Thyroid disease Arthritis High cholesterol Back pain Injury of back Difficulty swallowing Difficulty chewing History of ulceration Diverticulosis History of Crohn's disease Gastric reflux Former smoker CPAP (continuous positive airway pressure) dependence Shortness of breath on exertion History of stress test History of echocardiogram Hypertension Diarrhea Urinary frequency Hematuria Thyroid disease Pneumonia Osteopenia Neuropathy Gallstones H/O emotional problems Hx: UTI (urinary tract infection) Bone fracture Back problem Allergies Liver lesion Clostridioides difficile infection Sleep apnea PTSD (post-traumatic stress disorder) Lumbago Internal hemorrhoids Hypothyroidism Esophageal reflux Diverticulitis Depression Unstable angina Dyslipidemia Essential (primary) hypertension Surgical History History of cardiac catheterization H/O wrist surgery [place] teeth extracted Previous back surgery History of cholecystectomy History of hysterectomy Hx of section Family History (Updated 01/25/25 @ 11:[address] Andreas Buenrostro MD) Grandmother Bowel disease Myocardial infarction Hypertension Aunt Bowel disease Ovarian cancer Mother Diabetes High cholesterol CVA (cerebral vascular accident) Father Diabetes Heart disease Thyroid disorder Hypertension High cholesterol Myocardial infarction Grandmother Cancer pancreatic Ot (more content not included)... Normal [facility] Glomerular filtration rate ( GFR) estimation/1.73 sq m using serum, plasma, or whole bOrdered By: Arthur Bull on 02-14-2025 GFR/1.73 sq M.predicted among non-blacks MDRD (S/P/Bld) [Vol rate/Area] 97 mL/min/{1.73_m2} >60 [facility] Comment on above: mL/min/1.73m2 CKD-EP I Creatinine Equation (2020) Hematocrit Auto (Bld) [Volum e fraction]Ordered By: Arthur Bull on 02-14-2025 Hematocrit (Bld) [Volume fraction] 42.9 % 37-47 [facility] Hemoglobin measurementOrdere d By: Arthur Bull on 02-14-2025 Hemoglobin (Bld) [Mass/Vol] 14.4 g/dL 12.0-15.0 [facility] Immature granulocytes/100 WB C Auto (Bld)Ordered By: Arthur Bull on 02-14-2025 Immature granulocytes/100 WBC (Bld) 0.300 % 0.0-0.9 [facility] Comment on above: IG% - Immature Granu locytes (promyelocytes, myelocytes and metamyelocytes) > 1% indicates that a LEFT SHIFT is Present. Laboratory - Chemistry and C hemistry - challengeOrdered By: Arthur Bull on 02-14-2025 AST [Catalytic activity/Vol] 20 U/L <32 [facility] Lipaseon 02-14-2025 Lipase [Catalytic activity/Vol] 36 U/L Normal 13-75 [facility] Comment on above: Result Comment: Cl duval note: LIPASE revised reference range effective 23. New Lipase methodology. Expected to produce lower values than the previous assay method. NEW Reference Range: 13 - 75 U/L Performed By: #### L 501.2450, L501.2400, L101.9900, L500.4050, L100.0100, L501.6710 ####[facility] [address] [place], [address] Lipase measurementOrdered By : Arthur Bull on 02-14-2025 Lipase [Catalytic activity/Vol] 36 U/L 13-75 [facility] Comment on above: Please note:LIPASE r evised reference range effective 23. New Lipase methodology. Expected to produce lower values than the previous assay method. NEW Reference Range: 13 - 75 U/L MCV (mean corpuscular volume ) determinationOrdered By: Arthur Bull on 02-14-2025 MCV (RBC) [Entitic vol] 92.7 fL 81-99 [facility] Mean corpuscular hemoglobin (MCH) determinationOrdered By: Arthur Bull on 02-14-2025 MCH (RBC) [Entitic mass] 31.1 pg 27.0-32.0 [facility] Mean corpuscular hemoglobin concentration (MCHC) determinationOrdered By: Arthur Bull on 02-14-2025 MCHC (RBC) [Mass/Vol] 33.6 g/dL 32-36 [facility] Mean platelet volume determi nationOrdered By: Arthur Bull on 02-14-2025 Platelet mean volume (Bld) [Entitic vol] 10.1 fL 6.2-12.0 [facility] Monocyte percentageOrdered B y: Arthur Bull on 02-14-2025 Monocytes/100 WBC (Bld) 4.8 % 0-10 [facility] Neutrophil percentageOrdered By: Arthur Bull on 02-14-2025 Neutrophils/100 WBC (Bld) 66.4 % 47-70 [facility] Nucleated red blood cell per centageOrdered By: Arthur Bull on 02-14-2025 Nucleated RBC/100 WBC (Bld) [Ratio] 0 % 0-5 [facility] Platelet countOrdered By: Ra edward Bull on 02-14-2025 Platelets (Bld) [#/Vol] 270 10*3/uL 150-450 [facility] Potassium measurement (mass/ volume)Ordered By: Arthur Bull on 02-14-2025 Potassium (Unsp spec) [Mass/Vol] 3.9 mmol/L 3.3-5.1 [facility] RBC Auto (Bld) [#/Vol]Ordere d By: Arthur Bull on 02-14-2025 RBC (Bld) [#/Vol] 4.63 10*6/uL 4.2-5.4 [facility] Serum creatinine measurement (mass/volume)Ordered By: Arthur Bull on 02-14-2025 Creatinine [Mass/Vol] 0.66 mg/dL Low 0.70-1.20 [facility] Serum globulin measurementOr dered By: Arthur Bull on 02-14-2025 Globulin (S) [Mass/Vol] 3.3 g/dL 2.2-4.2 [facility] Serum glucose measurement (m ass/volume)Ordered By: Arthur Bull on 02-14-2025 Glucose [Mass/Vol] 125 mg/dL High 70-99 [facility] Serum or plasma C reactive p rotein measurement (mass/volume)Ordered By: Arthur Bull on 02-14-2025 CRP [Mass/Vol] mg/L 0.0-3.0 [facility] Serum or plasma alanine alvarez otransferase (ALT) measurementOrdered By: Arthur Bull on 02-14-2025 ALT [Catalytic activity/Vol] 17 U/L <35 [facility] Serum or plasma albumin lavelle urement (mass/volume)Ordered By: Arthur Bull on 02-14-2025 Albumin [Mass/Vol] 4.5 g/dL 3.4-4.8 [facility] Serum or plasma albumin/glob ulin mass ratioOrdered By: Arthur Bull on 02-14-2025 Albumin/Globulin [Mass ratio] 1.4 {ratio} 0.9-2.4 [facility] Serum or plasma alkaline veronika sphatase measurementOrdered By: Arthur Bull on 02-14-2025 ALP [Catalytic activity/Vol] 80 U/L 35-104 [facility] Serum or plasma amylase lavelle urement (enzymatic activity/volume)Ordered By: Arthur Bull on 02-14-2025 Amylase [Catalytic activity/Vol] 50 U/L 28-100 [facility] Serum or plasma calcium lavelle urement (mass/volume)Ordered By: Arthur Bull on 02-14-2025 Calcium [Mass/Vol] 9.5 mg/dL 7.6-11.0 [facility] Serum or plasma urea nitroge n measurement (mass/volume)Ordered By: Arthur Friend on 02-14-2025 Urea nitrogen [Mass/Vol] 14 mg/dL 4-19 [facility] Sodium levelOrdered By: Gael rodrigues Friend on 02-14-2025 Sodium [Moles/Vol] 139 mmol/L 133-145 [facility] Total proteinOrdered By: Steve bautista Friend on 02-14-2025 Protein [Mass/Vol] 7.8 g/dL 5.9-8.4 [facility] White blood cell (WBC) count Ordered By: Arthur Bull on 02-14-2025 WBC (Bld) [#/Vol] 11.1 10*3/uL High 4.4-11.0 [facility] Internal Medicine Office Vis itocarmen 01-24-2025 Internal Medicine Office Visit [facility] [address] [place] [address] [place] [address] OFFICE VISIT Date of Service: 01/25/25 MR#: [id number] Acct: [id number] Name: ISAAC RAHMAN Rep #: [id number] : 1960 Provider: Dr. Andreas gill MD Age/Sex: 64/F Location[place] [facility] [place] Status: Signed Intake Vital Signs 10/22/24 07:52 01/25/25 11:27 Height 5 ft 5 ft Weight: 173 lb BMI 33.7 BP 158/80 H Blood Pressure Location Lt brachial Position Sitting Respiration 20 H Pulse 63 Pulse Source Monitor Temp 96.6 F L Temp Source Temporal Pulse Oximetry (%) 97 Oxygen Delivery Method room air Intake Visit Reasons: MED DISCUSSION Chief Complaint: discuss medication Gut Dropper Required: No Accompanied by: Self Is patient in pain?: No Allergies Penicillins (PCN) Allergy (Verified 01/25/25 11:23) Unknown Tetracyclines Adverse Reaction (Verified 01/25/25 11:23) Nausea Medications ???Medication ???Instructions ???Recorded ???Confirmed ???Type lidocaine 4 % topical patch 1 patch topical DAILY PRN Pain 01/25/25 History Super Collagen Vitamin C 1 tab PO DAILY 01/21/23 01/25/25 H istory spironolactone 25 mg tablet 25 mg PO PRN WATER RETENTION 02/1701/25/25 History magnesium hydroxide 400 mg/5 mL 400 mg PO DAILY PRN constipation 0 11/03/23 01/25/25 History oral suspension loratadine 10 mg tablet 10 mg PO DAILY PRN Inflammation 01/25/25 Rx Held on 04/27/24. #90 tabs Instructions: Order Changed Lactobacillus rhamnosus GG 10 1 cap PO DAILY #90 caps 03/11/24 0 01/25/25 Rx billion cell capsule (Culturelle) inulin 2 gram chewable tablet g PO 08/06/24 01/25/25 History (Fiber Gummies) aspirin 81 mg tablet,delayed 81 mg PO DAILY #90 tabs 08/09/24 0 01/25/25 Rx release (Ecotrin Low Strength) ustekinumab 90 mg/mL subcutaneous 90 mg subcut Q4W #1 mL 08/24/24 0 01/25/25 Rx syringe (Stelara) sennosides 8.6 mg-docusate sodium 1 tab-cap PO BID PRN 09/01/2411/20 History 50 mg capsule (Senna Plus) linaclotide 290 mcg capsule 290 mcg PO DAILY #90 caps 09/03/24 01/25/25 Rx (Linzess) ondansetron 4 mg disintegrating 4 mg PO Q8H PRN PRN Nausea #30 tab s 11/22/24 01/25/25 Rx tablet dicyclomine 20 mg tablet 20 mg PO BID PRN abdominal 5 01/25/25 Rx discomfort #60 tabs pantoprazole 40 mg tablet,delayed 40 mg PO DAILY #90 TABLETS 01/25/25 Rx release atenolol 25 mg tablet 25 mg PO DAILY #90 TABLETS 5 01/25/25 Rx fluticasone propionate 50 2 spray intranasal DAILY PRN 12/2701/25/25 Rx mcg/actuation nasal ALLERGIES #16 grams spray,suspension alendronate 70 mg tablet 70 mg PO QWEEK #12 tabs 01/25/25 0 01/25/25 Rx atorvastatin 40 mg tablet 40 mg PO QHS CHOLESTEROL #90 tabs 01/25/25 01/25/25 Rx calcium 600 mg (as 1 tab PO DAILY #90 tabs 01/25/25 0 01/25/25 Rx carbonate)-vitamin D3 5 mcg (200 unit) tablet hydroxyzine HCl 10 mg tablet 10 mg PO Q8H PRN anxiety #20 tabs 01/25/25 01/25/25 Rx levothyroxine 75 mcg tablet 75 mcg PO DAILY #90 TABLETS 01/25/25 Rx lisinopril 40 mg tablet 40 mg PO DAILY #90 tabs 01/25/25 0 01/25/25 Rx magnesium oxide 400 mg PO QDAY #90 caps 01/25/25 0 01/25/25 Rx multivitamin with folic acid 400 1 tab PO DAILY #90 TABLETS 5 01/25/25 Rx mcg tablet (One Daily Essential) Have you fallen in the past year?: No PFSH Medical History (Updated 01/25/25 @ 15:[address] Andreas Buenrostro MD) Preoperative cardiovascular examination Abnormal EKG LINDY on CPAP Wears glasses Post-menopausal History of Clostridium difficile infection History of steroid therapy Thyroid disease Arthritis High cholesterol Back pain Injury of back Difficulty swallowing Difficulty chewing History of ulceration Diverticulosis History of Crohn's disease Gastric reflux Former smoker CPAP (continuous positive airway pressure) dependence Shortness of breath on exertion History of stress test History of echocardiogram Hypertension Diarrhea Urinary frequency Hematuria Thyroid disease Pneumonia Osteopenia Neuropathy Gallstones H/O emotional problems Hx: UTI (urinary tract infection) Bone fracture Back problem Allergies Liver lesion Clostridioides difficile infection Sleep apnea PTSD (post-traumatic stress disorder) Lumbago Internal hemorrhoids Hypothyroidism Esophageal reflux Diverticulitis Depression Unstable angina Dyslipidemia Essential (primary) hypertension Surgical History History of cardiac catheterization H/O wrist surgery [place] teeth extracted Previous back surgery History of cholecystectomy History of hysterectomy Hx of section Family History (Updated 01/25/25 @ (more content not included)... [facility] 1 12-23-[facility]23 Urgent Care Visit Report [facility] [address], [address] [place] [address] OFFICE VISIT Date of Service: 10/22/24 MR#: [id number] Acct: [id number] Name: ISAAC RAHMAN Rep #: [id number] : 1960 Provider: MARQUES britt Age/Sex: 64/F Location: [facility] [place] Status: Signed Intake Vital Signs 09/01/24 11:20 10/22/24 07:52 Height 5 ft 5 ft BP 128/82 H Blood Pressure Location Lt brachial Position Sitting Respiration 15 Pulse 75 Pulse Source NIBP Temp 98.1 F Temp Source Oral Pulse Oximetry (%) 96 Oxygen Delivery Method room air Intake Visit Reasons: SCRATCHY THROAT, CONCERN FOR COVID Chief Complaint: ST, congest, fatigue Gut Dropper Required: No Is patient in pain?: No Allergies Penicillins (PCN) Allergy (Verified 10/22/24 09:00) Unknown Tetracyclines Adverse Reaction (Verified 10/22/24 09:00) Nausea Is last menstrual period known: No Post menopausal: Yes Patient : No Have you fallen in the past year?: No Nurse's Note: ST, congest, fatigue x 2-3 days. pt flew back from [place], concern for flu/covid. hx crohns, on Stellara so concerned about immune system. [facility] Medical History Preoperative cardiovascular examination Abnormal EKG LINDY on CPAP Wears glasses Post-menopausal History of Clostridium difficile infection History of steroid therapy Thyroid disease Arthritis High cholesterol Back pain Injury of back Difficulty swallowing Difficulty chewing History of ulceration Diverticulosis History of Crohn's disease Gastric reflux Former smoker CPAP (continuous positive airway pressure) dependence Shortness of breath on exertion History of stress test History of echocardiogram Hypertension Diarrhea Urinary frequency Hematuria Thyroid disease Pneumonia Osteopenia Neuropathy Gallstones H/O emotional problems Hx: UTI (urinary tract infection) Bone fracture Back problem Allergies Liver lesion Clostridioides difficile infection Sleep apnea PTSD (post-traumatic stress disorder) Lumbago Internal hemorrhoids Hypothyroidism Esophageal reflux Diverticulitis Depression Unstable angina Dyslipidemia Essential (primary) hypertension Surgical History History of cardiac catheterization H/O wrist surgery [place] teeth extracted Previous back surgery History of cholecystectomy History of hysterectomy Hx of section Family History Grandmother Bowel disease Myocardial infarction Hypertension Aunt Bowel disease Ovarian cancer Mother Diabetes High cholesterol Father Diabetes Heart disease Thyroid disorder Hypertension High cholesterol Myocardial infarction Grandmother Cancer pancreatic Other Anemia Colon cancer Social History household members: significant other current occupational status: unemployed current occupation: multiple jobs Smoking Status: Former smoker quit date: 10/27/21 pack-years: 3 alcohol intake: former substance use type: former substance user Date of last use: marijuana 09/2022 what type of physical activity do you participate in: none seatbelt use: always do you feel safe at home: Yes HPI HPI Chief Complaint: ST, congest, fatigue Details: ISAAC RAHMAN, is a 64 F who presents to the office today for evaluation for 2 day history of sore throat, congestion, headache, ear pressure, and fatigue. Denies any fever, body aches, nausea/vomiting. She recently traveled via airplane to [place]. She has Crohns disease and is on Stelara q 4 weeks. She has been taking Mucinex with D with some relief in symptoms. Denies any other aggravating or alleviating factors. POC COVID and flu negative. ROS Const Constitutional: Positive for headache(s) ENT ENT: Positive for nasal congestion, nasal discharge, post nasal drip, headache(s) and sore throat Resp Respiratory: Positive for cough Cough: Yes non-productive Gastro GI: No nausea/dyspepsia Neuro Neurology: Positive for headache(s) Exam Const General: cooperative, healthy appearing, comfortable and no acute distress Nutritional Appearance: obese Orientation: alert, awake and oriented x3 HENMT Head: normal to inspection Ears: hearing grossly normal bilaterally and TM abnormal with fluid behind the TM (clear) on the left; not erythematous and with no loss of landmarks Nose: external nose normal and nasal discharge clear Face and sinus: normal facial exam, sinuses nontender, no fluctuance and no sinus tenderness Mouth: moist mucous membranes Throat: postnasal drainage Eyes General: appearance normal, both eyes and all (more content not included)... Normal [facility] Basophil percentageOrdered B y: Andreas Porter on 02-05-2024 Potassium [Moles/Vol] 4.0 mmol/L 3.5-5.1 [facility] Basophil percentageOrdered B y: Arthur Bull on 11-17-2023 LDH [Catalytic activity/Vol] 191 U/L 84-246 [facility] Erythrocyte sedimentation ra teOrdered By: Arthur Bull on 11-17-2023 ESR (Bld) [Velocity] 22 mm/h 0-30 [facility] No Panel InformationOrdered By: Arthur Bull on 11-17-2023 Stool Calprotectin 23 ug/g 0-120 [facility] Comment on above: Concentration Interp retation Follow-Up< 5 - 50 ug/g Normal None>50 -120 ug/g Borderline Re-evaluate in 4-6 weeks >120 ug/g Abnormal Repeat as clinically indicatedPerformed at: - [facility] [id number] Director: Marcio Hennessy MD, Phone: [phone] C-Reactive Protein Extended Range < 2.90 mg/L 0.0-3.0 [facility] Comment on above: C-Reactive Protein ( CRP) provides useful information for thediagnosis, therapy and monitoring of inflammatory processesand associated diseases. For the evaluation of Relative Riskfor Cardiovascular Disease, a High Sensitivity CRP (HSCRP)should be ordered. Miscellaneous Test See comment [facility] Comment on above: Scanned image report available in EMR Qualitative QuantiFERON-TB g old in tube testOrdered By: Arthur Bull on 11-17-2023 M. tuberculosis tuberculin stim IFN-g Ql (Bld) 0.04 IU/mL . [facility] Stool lactoferrin detection by immunoassayOrdered By: Arthur Bull on 11-17-2023 Lactoferrin IA Ql (Stl) [facility] Lactoferrin IA Ql (Stl) [facility] Thin prep Papanicolaou smear with manual screeningOrdered By: Arthur Bull on 11-17-2023 Thin prep Papanicolaou smear with manual screening Comment . [facility] Comment on above: QuantiFERON-TB Gold Plus is a qualitative indirect test forM tuberculosis infection (including disease) and isintended for use in conjunction with risk assessment,radiography, and other medical and diagnostic evaluations.The QuantiFERON-TB Gold Plus result is determined bysubtracting the Nil value from either TB antigen (Ag)value. The Mitogen tube serves as a control for the test. Thin prep Papanicolaou smear with manual screening 0 IU/mL . [facility] Thin prep Papanicolaou smear with manual screening > 10.00 IU/mL . [facility] Thin prep Papanicolaou smear with manual screening Negative Negative [facility] Comment on above: No response to M tub erculosis antigens detected.Infection with M tuberculosis is unlikely, but high riskindividuals should be considered for additional testing(ATS/IDSA/CDC Clinical Practice Guidelines, 2017). Thereference range is an Antigen minus Nil result of <0.35IU/mL.The specimen received for QuantiFERON testing was incubatedby the ordering institution. Specific procedures outlinedin our Directory of Services and in the package insert forthe QuantiFERON Gold (In Tube) test must be followed toenable for proper stimulation of cells for the productionof interferon gamma. Chemiluminescence immunoassaymethodologyPerformed at: [facility] - [facility] [id number] Director: Saad Hernandez PhD, Phone: [phone] Absolute lymphocyte countOrd ered By: Andreas Buenrostro on 11-03-2023 Lymphocytes Auto (Unsp spec) [#/Vol] 5.60 10*3/uL 0.83-4.51 [facility] Basophil percentageOrdered B y: Andreas Buenrostro on 11-03-2023 Basophil percentage 0 SEEN /hpf 0-5 [facility] Basophils/100 WBC (Bld) 0.5 % 0-1 [facility] Bilirubin [Mass/Vol] 0.30 mg/dL 0.20-1.00 [facility] Comment on above: For patients on eltr ombopag therapy, use of Dimension [place] TBIL is not recommended. Chloride [Moles/Vol] 104 mmol/L 98-107 [facility] Cholesterol [Mass/Vol] 222 mg/dL <200 [facility] Comment on above: <200 mg/dL Desirable 200-240 mg/dL Borderline >240 mg/dL High Risk Eosinophils/100 WBC (Bld) 1.1 % 0-5 [facility] Glucose [Mass/Vol] 89 mg/dL 74-106 [facility] Neutrophils (Bld) [#/Vol] 7.4 10*3/uL 2.0-7.7 [facility] Neutrophils/100 WBC (Bld) 52.5 % 47-70 [facility] Potassium [Moles/Vol] 4.3 mmol/L 3.5-5.1 [facility] Protein [Mass/Vol] 7.8 g/dL 6.4-8.2 [facility] Sodium [Moles/Vol] 138 mmol/L 136-145 [facility] Triglyceride [Mass/Vol] 118 mg/dL <199 [facility] Comment on above: The drugs N-Acetylcy steine and Metamizole may falsely depress this assay.Serum Triglycerides Reference Interval Normal <150 mg/dL Borderline high 150 - 199 mg/dL High 200 - 499 mg/dL Very High > or = 500 mg/dL WBC (Bld) [#/Vol] 14.1 10*3/uL 4.4-11.0 [facility] Bilirubin Test strip Ql (U)O rdered By: Andreas Buenrostro on 11-03-2023 Bilirubin Ql (U) Negative Negative [facility] Blood erythrocytes count (nu mber/volume)Ordered By: Andreas Buenrostro on 11-03-2023 RBC (Bld) [#/Vol] 4.61 10*6/uL 4.2-5.4 [facility] Blood hemoglobin measurement (mass/volume)Ordered By: Andreas Buenrostro on 11-03-2023 Hemoglobin (Bld) [Mass/Vol] 14.1 g/dL 12.0-15.0 [facility] Blood lymphocytes/100 leukoc ytesOrdered By: Andreas Buenrostro on 11-03-2023 Lymphocytes/100 WBC (Bld) 39.7 % 19-41 [facility] Blood manual differential co mment interpretation (narrative result)Ordered By: Andreas Buenrostro on 11-03-2023 Manual differential comment Rodrigo (Bld) [Interp] COMMENT [facility] Comment on above: LYMPHOCYTOSIS. Blood monocytes/100 leukocyt esOrdered By: Andreas Buenrostro on 11-03-2023 Monocytes/100 WBC (Bld) 5.8 % 0-10 [facility] Blood platelet mean volumeOr dered By: Andreas Buenrostro on 11-03-2023 Platelet mean volume (Bld) [Entitic vol] 10.0 fL 6.2-12.0 [facility] Determination of erythrocyte mean corpuscular volume (MCV)Ordered By: Andreas Buenrostro on 11-03-2023 MCV (RBC) [Entitic vol] 95.7 fL 81-99 [facility] Hematocrit Auto (Bld) [Volum e fraction]Ordered By: Andreas Buenrostro on 11-03-2023 Hematocrit (Bld) [Volume fraction] 44.1 % 37-47 [facility] Ketones Test strip Ql (U)Ord ered By: Andreas Buenrostro on 11-03-2023 Ketones Ql (U) Negative Negative [facility] Laboratory - Chemistry and C hemistry - challengeOrdered By: Andreas Buenrostro on 11-03-2023 ALP [Catalytic activity/Vol] 65 U/L 45-117 [facility] ALT [Catalytic activity/Vol] 25 U/L 13-56 [facility] CO2 [Moles/Vol] 30.0 mmol/L 21.0-32.0 [facility] Globulin (S) [Mass/Vol] 4.0 g/dL 2.2-4.2 [facility] Urea nitrogen/Creatinine [Mass ratio] 26.2 mg/mg 10-20 [facility] Laboratory - Hematology and Cell countsOrdered By: Andreas Buenrostro on 11-03-2023 Erythrocyte distribution width (RBC) [Entitic vol] 46.0 fL 35.1-43.9 [facility] Erythrocyte distribution width (RBC) [Ratio] 13.1 % 11.6-14.6 [facility] Immature granulocytes/100 WBC (Bld) 0.400 % 0.0-0.9 [facility] Comment on above: IG% - Immature Granu locytes (promyelocytes, myelocytes and metamyelocytes) > 1% indicates that a LEFT SHIFT is Present. MCH (RBC) [Entitic mass] 30.6 pg 27.0-32.0 [facility] Nucleated RBC/100 WBC (Bld) [Ratio] 0 % 0-5 [facility] MCHC Auto (RBC) [Mass/Vol]Or dered By: Andreas Buenrostro on 11-03-2023 MCHC (RBC) [Mass/Vol] 32.0 g/dL 32-36 [facility] Mucus LM Ql (Urine sed)Order ed By: Andreas Buenrostro on 11-03-2023 Mucus Ql (Urine sed) 0 SEEN /hpf [facility] Nitrite Test strip Ql (U)Ord ered By: Andreas Buenrostro on 11-03-2023 Nitrite Ql (U) Negative Negative [facility] No Panel InformationOrdered By: Andreas Buenrostro on 11-03-2023 Estimated GFR (MDRD) Amer 88 mL/min >60 [facility] Comment on above: GFR Calc Estimated GFR (MDRD) Non-Af Amer 72 mL/min >60 [facility] Comment on above: Non- GFR Calc Thyroid Stimulating Hormone (TSH) 2.30 uIU/mL 0.358-3.74 [facility] Platelets bldOrdered By: Hans Buenrostro on 11-03-2023 Platelets (Bld) [#/Vol] 280 10*3/uL 150-450 [facility] Protein Test strip Ql (U)Ord ered By: Andreas Buenrostro on 11-03-2023 Protein Ql (U) Negative Negative [facility] Serum or plasma albumin lavelle urement (mass/volume)Ordered By: Andreas Buenrostro on 11-03-2023 Albumin [Mass/Vol] 3.8 g/dL 3.2-5.0 [facility] Serum or plasma albumin/glob ulin mass ratioOrdered By: Andreas Buenrostro on 11-03-2023 Albumin/Globulin [Mass ratio] 1.0 {ratio} 0.9-2.4 [facility] Serum or plasma calcium lavelle urement (mass/volume)Ordered By: Andreas Buenrostro on 11-03-2023 Calcium [Mass/Vol] 9.7 mg/dL 8.5-10.1 [facility] Serum or plasma cholesterol in HDL measurement (mass/volume)Ordered By: Andreas Buenrostro on 11-03-2023 Cholesterol in HDL [Mass/Vol] 71 mg/dL >40 [facility] Comment on above: The drugs N-Acetylcy steine and Metamizole may falsely depress this assay. Reference Range HDL <40 mg/dL Low HDL Cholesterol HDL >or= 60 mg/dL High HDL Cholesterol Serum or plasma cholesterol in VLDL measurement (mass/volume)Ordered By: Andreas Buenrostro on 11-03-2023 Cholesterol in VLDL [Mass/Vol] 24 mg/dL 5-40 [facility] Serum or plasma creatinine m easurement (mass/volume)Ordered By: Andreas Buenrostro on 11-03-2023 Creatinine [Mass/Vol] 0.84 mg/dL 0.55-1.02 [facility] Comment on above: The validity of the calculated GFR & GFRAA in patients over 70 years has not been determined. Clinical correlation is essential. Serum or plasma low density lipoprotein (LDL) cholesterol measurement (mass/volume)Ordered By: Andreas Buenrostro on 11-03-2023 Cholesterol in LDL [Mass/Vol] 127 mg/dL 0-130 [facility] Serum or plasma urea nitroge n measurement (mass/volume)Ordered By: Andreas Buenrostro on 11-03-2023 Urea nitrogen [Mass/Vol] 22 mg/dL 7-18 [facility] Squamous epithelial cells de tection in urine sediment by light microscopyOrdered By: Andreas Buenrostro on 11-03-2023 Epithelial cells.squamous LM Ql (Urine sed) 0 SEEN /hpf 5-10 [facility] Thin prep Papanicolaou smear with manual screeningOrdered By: Andreas Buenrostro on 11-03-2023 Thin prep Papanicolaou smear with manual screening 17 U/L 15-37 [facility] Thin prep Papanicolaou smear with manual screening 4 5-15 [facility] Urine blood detectionOrdered By: Andreas Buenrostro on 11-03-2023 RBC Ql (U) 25 /ul Negative [facility] RBC Ql (U) 0-5 SEEN /hpf 0-5 [facility] Urine clarityOrdered By: Hans Buenrostro on 11-03-2023 Clarity (U) Clear Clear [facility] Urine color determinationOrd ered By: Andreas Buenrostro on 11-03-2023 Color (U) Yellow Yellow [facility] Urine glucose detectionOrder ed By: Andreas Buenrostro on 11-03-2023 Glucose Ql (U) Normal mg/dl Normal [facility] Urine leukocyte esterase det ection by dipstickOrdered By: Andreas Buenrostro on 11-03-2023 Leukocyte esterase Test strip Ql (U) Negative Negative [facility] Urine pHOrdered By: Andreas Orr inddevika on 11-03-2023 pH (U) 6.0 [pH] 5.0 - 8.0 [facility] Urine sediment bacteria coun t by microscopy (number/high power field)Ordered By: Andreas Buenrostro on 11-03-2023 Bacteria LM.HPF (Urine sed) [#/Area] 0 /[HPF] None Seen [facility] Urine specific gravity measu rementOrdered By: Andreas Buenrostro on 11-03-2023 Specific gravity (U) [Rel density] 1.010 1.002-1.03 0 [facility] Urobilinogen Auto test strip Ql (U)Ordered By: Andreas Buenrostro on 11-03-2023 Urobilinogen Ql (U) Normal mg/dl Normal [facility] Whole blood hemoglobin A1c/t otal hemoglobin ratio (mass fraction)Ordered By: Andreas Buenrostro on 11-03-2023 HbA1c (Bld) [Mass fraction] 5.4 % 3.8-5.6 [facility] Comment on above: Normal < 5.7 % Predi abetic 5.7 - 6.4 % Diabetic >or= 6.5 % Please note range changes. Absolute lymphocyte countOrd ered By: Andreas Buenrostro on 08-04-2023 Lymphocytes Auto (Unsp spec) [#/Vol] 4.12 10*3/uL 0.83-4.51 [facility] Basophil percentageOrdered B y: Andreas Buenrostro on 08-04-2023 Basophils/100 WBC (Bld) 0.3 % 0-1 [facility] Eosinophils/100 WBC (Bld) 1.7 % 0-5 [facility] Neutrophils (Bld) [#/Vol] 6.2 10*3/uL 2.0-7.7 [facility] Neutrophils/100 WBC (Bld) 55.6 % 47-70 [facility] WBC (Bld) [#/Vol] 11.1 10*3/uL 4.4-11.0 [facility] Blood erythrocytes count (nu mber/volume)Ordered By: Andreas Buenrostro on 08-04-2023 RBC (Bld) [#/Vol] 4.38 10*6/uL 4.2-5.4 [facility] Blood hemoglobin measurement (mass/volume)Ordered By: Andreas Buenrostro on 08-04-2023 Hemoglobin (Bld) [Mass/Vol] 13.6 g/dL 12.0-15.0 [facility] Blood lymphocytes/100 leukoc ytesOrdered By: Andreas Buenrostro on 08-04-2023 Lymphocytes/100 WBC (Bld) 37.2 % 19-41 [facility] Blood monocytes/100 leukocyt esOrdered By: Andreas Buenrostro on 08-04-2023 Monocytes/100 WBC (Bld) 5.0 % 0-10 [facility] Blood platelet mean volumeOr dered By: Andreas Buenrostro on 08-04-2023 Platelet mean volume (Bld) [Entitic vol] 10.0 fL 6.2-12.0 [facility] Determination of erythrocyte mean corpuscular volume (MCV)Ordered By: Andreas Buenrostro on 08-04-2023 MCV (RBC) [Entitic vol] 94.5 fL 81-99 [facility] Hematocrit Auto (Bld) [Volum e fraction]Ordered By: Andreas Buenrostro on 08-04-2023 Hematocrit (Bld) [Volume fraction] 41.4 % 37-47 [facility] Laboratory - Chemistry and C hemistry - challengeOrdered By: Andreas Buenrostro on 08-04-2023 Free T4 [Mass/Vol] 1.22 ng/dL 0.76-1.46 [facility] Laboratory - Hematology and Cell countsOrdered By: Andreas Buenrostro on 08-04-2023 Erythrocyte distribution width (RBC) [Entitic vol] 39.1 fL 35.1-43.9 [facility] Erythrocyte distribution width (RBC) [Ratio] 11.3 % 11.6-14.6 [facility] Immature granulocytes/100 WBC (Bld) 0.200 % 0.0-0.9 [facility] Comment on above: IG% - Immature Granu locytes (promyelocytes, myelocytes and metamyelocytes) > 1% indicates that a LEFT SHIFT is Present. MCH (RBC) [Entitic mass] 31.1 pg 27.0-32.0 [facility] Nucleated RBC/100 WBC (Bld) [Ratio] 0 % 0-5 [facility] MCHC Auto (RBC) [Mass/Vol]Or dered By: Andreas Buenrostro on 08-04-2023 MCHC (RBC) [Mass/Vol] 32.9 g/dL 32-36 [facility] No Panel InformationOrdered By: Andreas Buenrostro on 08-04-2023 Thyroid Stimulating Hormone (TSH) 0.78 uIU/mL 0.358-3.74 [facility] Platelets bldOrdered By: Hans Buenrostro on 08-04-2023 Platelets (Bld) [#/Vol] 299 10*3/uL 150-450 [facility] Whole blood hemoglobin A1c/t otal hemoglobin ratio (mass fraction)Ordered By: Andreas Buenrostro on 08-04-2023 HbA1c (Bld) [Mass fraction] 5.6 % 3.8-5.6 [facility] Comment on above: Normal < 5.7 % Predi abetic 5.7 - 6.4 % Diabetic >or= 6.5 % Please note range changes. Basophil percentageOrdered B y: Luba Godoy on 07-30-2023 Basophil percentage 0 SEEN /hpf 0-5 [facility] Bilirubin Test strip Ql (U)O rdered By: Luba Godoy on 07-30-2023 Bilirubin Ql (U) Negative Negative [facility] Ketones Test strip Ql (U)Ord ered By: Luba Godoy on 07-30-2023 Ketones Ql (U) Negative Negative [facility] Mucus LM Ql (Urine sed)Order ed By: Luba Godoy on 07-30-2023 Mucus Ql (Urine sed) 0 SEEN /hpf [facility] Nitrite Test strip Ql (U)Ord ered By: Luba Godoy on 07-30-2023 Nitrite Ql (U) Negative Negative [facility] Protein Test strip Ql (U)Ord ered By: Luba Godoy on 07-30-2023 Protein Ql (U) Negative Negative [facility] Squamous epithelial cells de tection in urine sediment by light microscopyOrdered By: Luba Godoy on 07-30-2023 Epithelial cells.squamous LM Ql (Urine sed) 0 SEEN /hpf 5-10 [facility] Urine blood detectionOrdered By: Luba Godoy on 07-30-2023 RBC Ql (U) 25 /ul Negative [facility] RBC Ql (U) 0-5 SEEN /hpf 0-5 [facility] Urine clarityOrdered By: Nirmala Godoy on 07-30-2023 Clarity (U) Sl. Cloudy Clear [facility] Urine color determinationOrd ered By: Luba Godoy on 07-30-2023 Color (U) Yellow Yellow [facility] Urine glucose detectionOrder ed By: Luba Godoy on 07-30-2023 Glucose Ql (U) Normal mg/dl Normal [facility] Urine leukocyte esterase det ection by dipstickOrdered By: Luba Godoy on 07-30-2023 Leukocyte esterase Test strip Ql (U) Negative Negative [facility] Urine pHOrdered By: Luba Godoy on 07-30-2023 pH (U) 7.0 [pH] 5.0 - 8.0 [facility] Urine sediment bacteria coun t by microscopy (number/high power field)Ordered By: Luba Godoy on 07-30-2023 Bacteria LM.HPF (Urine sed) [#/Area] 0 /[HPF] None Seen [facility] Urine specific gravity measu rementOrdered By: Luba Godoy on 07-30-2023 Specific gravity (U) [Rel density] 1.005 1.002-1.03 0 [facility] Urobilinogen Auto test strip Ql (U)Ordered By: Luba Godoy on 07-30-2023 Urobilinogen Ql (U) Normal mg/dl Normal [facility] Absolute lymphocyte countOrd ered By: Arthur Bull on 07-29-2023 Lymphocytes Auto (Unsp spec) [#/Vol] 3.88 10*3/uL 0.83-4.51 [facility] Basophil percentageOrdered B y: Arthur Bull on 07-29-2023 Basophils/100 WBC (Bld) 0.4 % 0-1 [facility] Bilirubin [Mass/Vol] 0.60 mg/dL 0.20-1.00 [facility] Comment on above: For patients on eltr ombopag therapy, use of Dimension [place] TBIL is not recommended. Chloride [Moles/Vol] 108 mmol/L 98-107 [facility] Eosinophils/100 WBC (Bld) 1.5 % 0-5 [facility] Glucose [Mass/Vol] 91 mg/dL 74-106 [facility] Neutrophils (Bld) [#/Vol] 10.8 10*3/uL 2.0-7.7 [facility] Neutrophils/100 WBC (Bld) 68.9 % 47-70 [facility] Potassium [Moles/Vol] 3.8 mmol/L 3.5-5.1 [facility] Protein [Mass/Vol] 7.5 g/dL 6.4-8.2 [facility] Sodium [Moles/Vol] 139 mmol/L 136-145 [facility] WBC (Bld) [#/Vol] 15.7 10*3/uL 4.4-11.0 [facility] Blood erythrocytes count (nu mber/volume)Ordered By: Arthur Bull on 07-29-2023 RBC (Bld) [#/Vol] 4.36 10*6/uL 4.2-5.4 [facility] Blood hemoglobin measurement (mass/volume)Ordered By: Arthur Bull on 07-29-2023 Hemoglobin (Bld) [Mass/Vol] 13.5 g/dL 12.0-15.0 [facility] Blood lymphocytes/100 leukoc ytesOrdered By: Arthur Bull on 07-29-2023 Lymphocytes/100 WBC (Bld) 24.8 % 19-41 [facility] Blood monocytes/100 leukocyt esOrdered By: Arthur Bull on 07-29-2023 Monocytes/100 WBC (Bld) 4.0 % 0-10 [facility] Blood platelet mean volumeOr dered By: Arthur Bull on 07-29-2023 Platelet mean volume (Bld) [Entitic vol] 9.4 fL 6.2-12.0 [facility] Determination of erythrocyte mean corpuscular volume (MCV)Ordered By: Arthur Bull on 07-29-2023 MCV (RBC) [Entitic vol] 93.6 fL 81-99 [facility] Erythrocyte sedimentation ra teOrdered By: Arthur Bull on 07-29-2023 ESR (Bld) [Velocity] 25 mm/h 0-30 [facility] Hematocrit Auto (Bld) [Volum e fraction]Ordered By: Arthur Bull on 07-29-2023 Hematocrit (Bld) [Volume fraction] 40.8 % 37-47 [facility] Laboratory - Chemistry and C hemistry - challengeOrdered By: Arthur Bull on 07-29-2023 ALP [Catalytic activity/Vol] 75 U/L 45-117 [facility] ALT [Catalytic activity/Vol] 25 U/L 13-56 [facility] CO2 [Moles/Vol] 28.0 mmol/L 21.0-32.0 [facility] Globulin (S) [Mass/Vol] 3.7 g/dL 2.2-4.2 [facility] Urea nitrogen/Creatinine [Mass ratio] 17.3 mg/mg 10-20 [facility] Laboratory - Hematology and Cell countsOrdered By: Arthur Bull on 07-29-2023 Erythrocyte distribution width (RBC) [Entitic vol] 39.6 fL 35.1-43.9 [facility] Erythrocyte distribution width (RBC) [Ratio] 11.4 % 11.6-14.6 [facility] Immature granulocytes/100 WBC (Bld) 0.400 % 0.0-0.9 [facility] Comment on above: IG% - Immature Granu locytes (promyelocytes, myelocytes and metamyelocytes) > 1% indicates that a LEFT SHIFT is Present. MCH (RBC) [Entitic mass] 31.0 pg 27.0-32.0 [facility] Nucleated RBC/100 WBC (Bld) [Ratio] 0 % 0-5 [facility] MCHC Auto (RBC) [Mass/Vol]Or dered By: Arthur Bull on 07-29-2023 MCHC (RBC) [Mass/Vol] 33.1 g/dL 32-36 [facility] No Panel InformationOrdered By: Arthur Bull on 07-29-2023 Stool Calprotectin 237 ug/g 0-120 [facility] Comment on above: Concentration Interp retation Follow-Up< 5 - 50 ug/g Normal None>50 -120 ug/g Borderline Re-evaluate in 4-6 weeks >120 ug/g Abnormal Repeat as clinically indicatedPerformed at: [facility] [facility] [id number] Director: Marcio Hennessy MD, Phone: [phone] Estimated GFR (MDRD) Amer 100 mL/min >60 [facility] Comment on above: GFR Calc Estimated GFR (MDRD) Non-Af Amer 83 mL/min >60 [facility] Comment on above: Non- GFR Calc Miscellaneous Test See comment [facility] Comment on above: Scanned image report available in EMR Platelets bldOrdered By: Steve Bull on 07-29-2023 Platelets (Bld) [#/Vol] 286 10*3/uL 150-450 [facility] Serum or plasma C reactive p rotein measurement (mass/volume)Ordered By: Arthur Bull on 07-29-2023 CRP [Mass/Vol] mg/L 0.0-3.0 [facility] Comment on above: C-Reactive Protein ( CRP) provides useful information for thediagnosis, therapy and monitoring of inflammatory processesand associated diseases. For the evaluation of Relative Riskfor Cardiovascular Disease, a High Sensitivity CRP (HSCRP)should be ordered. Serum or plasma albumin lavelle urement (mass/volume)Ordered By: Arthur Bull on 07-29-2023 Albumin [Mass/Vol] 3.8 g/dL 3.2-5.0 [facility] Serum or plasma albumin/glob ulin mass ratioOrdered By: Arthur Bull on 07-29-2023 Albumin/Globulin [Mass ratio] 1.0 {ratio} 0.9-2.4 [facility] Serum or plasma calcium lavelle urement (mass/volume)Ordered By: Arthur Bull on 07-29-2023 Calcium [Mass/Vol] 8.9 mg/dL 8.5-10.1 [facility] Serum or plasma creatinine m easurement (mass/volume)Ordered By: Arthur Bull on 07-29-2023 Creatinine [Mass/Vol] 0.75 mg/dL 0.55-1.02 [facility] Comment on above: The validity of the calculated GFR & GFRAA in patients over 70 years has not been determined. Clinical correlation is essential. Serum or plasma urea nitroge n measurement (mass/volume)Ordered By: Arthur Bull on 07-29-2023 Urea nitrogen [Mass/Vol] 13 mg/dL 7-18 [facility] Stool lactoferrin detection by immunoassayOrdered By: Arthur Bull on 07-29-2023 Lactoferrin IA Ql (Stl) [facility] Lactoferrin IA Ql (Stl) [facility] Thin prep Papanicolaou smear with manual screeningOrdered By: Arthur Bull on 07-29-2023 Thin prep Papanicolaou smear with manual screening 17 U/L 15-37 [facility] Thin prep Papanicolaou smear with manual screening 3 5-15 [facility] No Panel Informationon 07-18 POC SARS CoV-[address] [facility] Absolute lymphocyte countOrd ered By: Dr. Buenrostro on 03-31-2023 Lymphocytes Auto (Unsp spec) [#/Vol] 3.97 10*3/uL 0.83-4.51 [facility] Basophil percentageOrdered B y: Dr. Buenrostro on 03-31-2023 Basophil percentage 132 mg/dL 74-106 [facility] Basophil percentage 7.1 g/dL 6.4-8.2 [facility] Basophil percentage 0.40 mg/dL 0.20-1.00 [facility] Basophil percentage 140 mmol/L 136-145 [facility] Basophil percentage 3.9 mmol/L 3.5-5.1 [facility] Basophil percentage 105 mmol/L 98-107 [facility] Basophils (Bld) [#/Vol] 17.4 10*3/uL 4.4-11.0 [facility] Basophils (Bld) [#/Vol] 12.4 10*3/uL 2.0-7.7 [facility] Basophils/100 WBC (Bld) 71.0 % 47-70 [facility] Basophils/100 WBC (Bld) 0.6 % 0-5 [facility] Basophils/100 WBC (Bld) 0.3 % 0-1 [facility] Blood erythrocytes count (nu mber/volume)Ordered By: Dr. Buenrostro on 03-31-2023 RBC (Bld) [#/Vol] 4.59 10*6/uL 4.2-5.4 [facility] Blood hemoglobin measurement (mass/volume)Ordered By: Dr. Buenrostro on 03-31-2023 Hemoglobin (Bld) [Mass/Vol] 14.6 g/dL 12.0-15.0 [facility] Blood lymphocytes/100 leukoc ytesOrdered By: Dr. Buenrostro on 03-31-2023 Lymphocytes/100 WBC (Bld) 22.8 % 19-41 [facility] Blood monocytes/100 leukocyt esOrdered By: Dr. Buenrostro on 03-31-2023 Monocytes/100 WBC (Bld) 4.6 % 0-10 [facility] Blood platelet mean volumeOr dered By: Dr. Buenrostro on 03-31-2023 Platelet mean volume (Bld) [Entitic vol] 10.0 fL 6.2-12.0 [facility] Determination of erythrocyte mean corpuscular volume (MCV)Ordered By: Dr. Buenrostro on 03-31-2023 MCV (RBC) [Entitic vol] 94.8 fL 81-99 [facility] Hematocrit Auto (Bld) [Volum e fraction]Ordered By: Dr. Buenrostro on 03-31-2023 Hematocrit (Bld) [Volume fraction] 43.5 % 37-[facility] [Mass/Vol]Or dered By: Dr. Buenrostro on 03-31-2023 MCHC (RBC) [Mass/Vol] 33.6 g/dL 32-36 [facility] No Panel InformationOrdered By: Dr. Buenrostro on 03-31-2023 31.8 pg 27.0-32.0 [facility] 12.7 % 11.6-14.6 [facility] 43.7 fl 35.1-43.9 [facility] 0.700 % 0.0-0.9 [facility] 0 % 0-5 [facility] 88 mL/min >60 [facility] 106 mL/min >60 [facility] 21.0 RATIO 10-20 [facility] 3.5 g/dL 2.2-4.2 [facility] 60 U/L 45-117 [facility] 32 U/L 13-56 [facility] 29.0 mmol/L 21.0-32.0 [facility] Platelets bldOrdered By: Dr. Buenrostro on 03-31-2023 Platelets (Bld) [#/Vol] 273 10*3/uL 150-450 [facility] Serum or plasma albumin lavelle urement (mass/volume)Ordered By: Dr. Buenrostro on 03-31-2023 Albumin [Mass/Vol] 3.6 g/dL 3.2-5.0 [facility] Serum or plasma albumin/glob ulin mass ratioOrdered By: Dr. Buenrostro on 03-31-2023 Albumin/Globulin [Mass ratio] 1.0 {ratio} 0.9-2.4 [facility] Serum or plasma calcium lavelle urement (mass/volume)Ordered By: Dr. Buenrostro on 03-31-2023 Calcium [Mass/Vol] 9.3 mg/dL 8.5-10.1 [facility] Serum or plasma creatinine m easurement (mass/volume)Ordered By: Dr. Buenrostro on 03-31-2023 Creatinine [Mass/Vol] 0.71 mg/dL 0.55-1.02 [facility] Serum or plasma urea nitroge n measurement (mass/volume)Ordered By: Dr. Buenrostro on 03-31-2023 Urea nitrogen [Mass/Vol] 15 mg/dL 7-18 [facility] Thin prep Papanicolaou smear with manual screeningOrdered By: Dr. Buenrostro on 03-31-2023 Thin prep Papanicolaou smear with manual screening 17 U/L 15-37 [facility] Thin prep Papanicolaou smear with manual screening 6 5-15 [facility] Absolute lymphocyte countOrd ered By: Dr. Godoy on 03-17-2023 Lymphocytes Auto (Unsp spec) [#/Vol] 7.13 10*3/uL 0.83-4.51 [facility] Basophil percentageOrdered B y: Dr. Godoy on 03-17-2023 Basophil percentage 106 mg/dL 74-106 [facility] Basophil percentage 140 mmol/L 136-145 [facility] Basophil percentage 3.4 mmol/L 3.5-5.1 [facility] Basophil percentage 103 mmol/L 98-107 [facility] Basophils (Bld) [#/Vol] 18.2 10*3/uL 4.4-11.0 [facility] Basophils (Bld) [#/Vol] 9.8 10*3/uL 2.0-7.7 [facility] Basophils/100 WBC (Bld) 53.9 % 47-70 [facility] Basophils/100 WBC (Bld) 0.5 % 0-5 [facility] Basophils/100 WBC (Bld) 0.3 % 0-1 [facility] Blood erythrocytes count (nu mber/volume)Ordered By: Dr. Godoy on 03-17-2023 RBC (Bld) [#/Vol] 4.60 10*6/uL 4.2-5.4 [facility] Blood hemoglobin measurement (mass/volume)Ordered By: Dr. Godoy on 03-17-2023 Hemoglobin (Bld) [Mass/Vol] 15.2 g/dL 12.0-15.0 [facility] Blood lymphocytes/100 leukoc ytesOrdered By: Dr. Godoy on 03-17-2023 Lymphocytes/100 WBC (Bld) 39.2 % 19-41 [facility] Blood manual differential co mment interpretation (narrative result)Ordered By: Dr. Godyo on 03-17-2023 Manual differential comment Rodrigo (Bld) [Interp] SCANNED [facility] Blood monocytes/100 leukocyt esOrdered By: Dr. Godoy on 03-17-2023 Monocytes/100 WBC (Bld) 5.2 % 0-10 [facility] Blood platelet mean volumeOr dered By: Dr. Godoy on 03-17-2023 Platelet mean volume (Bld) [Entitic vol] 9.4 fL 6.2-12.0 [facility] Determination of erythrocyte mean corpuscular volume (MCV)Ordered By: Dr. Godoy on 03-17-2023 MCV (RBC) [Entitic vol] 95.0 fL 81-99 [facility] Hematocrit Auto (Bld) [Volum e fraction]Ordered By: Dr. Godoy on 03-17-2023 Hematocrit (Bld) [Volume fraction] 43.7 % 37-47 [facility] MCHC Auto (RBC) [Mass/Vol]Or dered By: Dr. Godoy on 03-17-2023 MCHC (RBC) [Mass/Vol] 34.8 g/dL 32-36 [facility] No Panel InformationOrdered By: Dr. Godoy on 03-17-2023 33.0 pg 27.0-32.0 [facility] 12.8 % 11.6-14.6 [facility] 44.8 fl 35.1-43.9 [facility] 0.900 % 0.0-0.9 [facility] 0 % 0-5 [facility] 1+ [facility] 78 mL/min >60 [facility] 94 mL/min >60 [facility] 52.36 ml/min [facility] 17.7 RATIO 10-20 [facility] 26.0 mmol/L 21.0-32.0 [facility] Platelets bldOrdered By: Dr. Godoy on 03-17-2023 Platelets (Bld) [#/Vol] 257 10*3/uL 150-450 [facility] Serum or plasma calcium lavelle urement (mass/volume)Ordered By: Dr. Godoy on 03-17-2023 Calcium [Mass/Vol] 9.3 mg/dL 8.5-10.1 [facility] Serum or plasma creatinine m easurement (mass/volume)Ordered By: Dr. Godoy on 03-17-2023 Creatinine [Mass/Vol] 0.79 mg/dL 0.55-1.02 [facility] Serum or plasma urea nitroge n measurement (mass/volume)Ordered By: Dr. Godoy on 03-17-2023 Urea nitrogen [Mass/Vol] 14 mg/dL 7-18 [facility] Thin prep Papanicolaou smear with manual screeningOrdered By: Dr. Godoy on 03-17-2023 Thin prep Papanicolaou smear with manual screening 11 5-15 [facility] Ova and parasitesOrdered By: Arthur Bull on 02-25-2023 Ova and parasites identified LM Nom (Unsp spec) [facility] Culture, urineOrdered By: Dr Soheila Buenrostro on 02-19-2023 Bacteria identified Cx Nom (U) Culture exhibits no growth. [facility] Amorphous sediment detection in urine sediment by light microscopyOrdered By: Dr. Buenrostro on 02-17-2023 Amorphous sediment LM Ql (Urine sed) 1+ URATE [facility] Basophil percentageOrdered B y: Dr. Buenrostro on 02-17-2023 Basophil percentage 0-5 SEEN /hpf 0-5 [facility] Bilirubin Test strip Ql (U)O rdered By: Dr. Buenrostro on 02-17-2023 Bilirubin Ql (U) Negative Negative [facility] Ketones Test strip Ql (U)Ord ered By: Dr. Buenrostro on 02-17-2023 Ketones Ql (U) Negative Negative [facility] Mucus LM Ql (Urine sed)Order ed By: Dr. Buenrostro on 02-17-2023 Mucus Ql (Urine sed) 0 SEEN /hpf [facility] Nitrite Test strip Ql (U)Ord ered By: Dr. Buenrostro on 02-17-2023 Nitrite Ql (U) Negative Negative [facility] No Panel InformationOrdered By: Dr. Buenrostro on 02-17-2023 Negative Negative [facility] Protein Test strip Ql (U)Ord ered By: Dr. Buenrostro on 02-17-2023 Protein Ql (U) Negative Negative [facility] Serum cyclic citrullinated p eptide IgG antibody assay (units/volume)Ordered By: Dr. Buenrostro on 02-17-2023 Cyclic citrullinated peptide IgG Qn 5 units 0-19 [facility] Serum rheumatoid factor dete ctionOrdered By: Dr. Buenrostro on 02-17-2023 Rheumatoid factor Ql (S) < 10.0 IU/mL <15 [facility] Squamous epithelial cells de tection in urine sediment by light microscopyOrdered By: Dr. Buenrostro on 02-17-2023 Epithelial cells.squamous LM Ql (Urine sed) 0-5 SEEN /hpf 5-10 [facility] Urine blood detectionOrdered By: Dr. Buenrostro on 02-17-2023 RBC Ql (U) 50 /ul Negative [facility] RBC Ql (U) 0-5 SEEN /hpf 0-5 [facility] Urine clarityOrdered By: Dr. Buenrostro on 02-17-2023 Clarity (U) Sl. Cloudy Clear [facility] Urine color determinationOrd ered By: Dr. Buenrostro on 02-17-2023 Color (U) Yellow Yellow [facility] Urine glucose detectionOrder ed By: Dr. Buenrostro on 02-17-2023 Glucose Ql (U) Normal mg/dl Normal [facility] Urine leukocyte esterase det ection by dipstickOrdered By: Dr. Buenrostro on 02-17-2023 Leukocyte esterase Test strip Ql (U) 25 /ul Negative [facility] Urine pHOrdered By: Dr. Luh fortune on 02-17-2023 pH (U) 5.0 [pH] 5.0 - 8.0 [facility] Urine sediment bacteria coun t by microscopy (number/high power field)Ordered By: Dr. Buenrostro on 02-17-2023 Bacteria LM.HPF (Urine sed) [#/Area] 0 /[HPF] None Seen [facility] Urine specific gravity measu rementOrdered By: Dr. Buenrostro on 02-17-2023 Specific gravity (U) [Rel density] 1.010 1.002-1.03 0 [facility] Urobilinogen Auto test strip Ql (U)Ordered By: Dr. Buenrostro on 02-17-2023 Urobilinogen Ql (U) Normal mg/dl Normal [facility] Clostridium difficile detect ion by polymerase chain reactionOrdered By: Arthur Bull on 02-14-2023 C. difficile DNA ROBIN+probe Ql (Unsp spec) [facility] EP PanelOrdered By: Arthur Bull on 02-14-2023 Gastrointestinal pathogens panel ROBIN+probe (Stl) [facility] No Panel InformationOrdered By: Arthur Bull on 02-14-2023 360 ug/g 0-120 [facility] > 500 >200 [facility] Stool Clostridium difficile detectionOrdered By: Arthur Bull on 02-14-2023 C. difficile Ql (Stl) [facility] Stool lactoferrin detection by immunoassayOrdered By: Arthur Bull on 02-14-2023 Lactoferrin IA Ql (Stl) [facility] Absolute lymphocyte countOrd ered By: Casimiro Becerra on 02-11-2023 Lymphocytes Auto (Unsp spec) [#/Vol] 6.48 10*3/uL 0.83-4.51 [facility] Basophil percentageOrdered B y: Casimiro Becerra on 02-11-2023 Basophil percentage 0-5 SEEN /hpf 0-5 [facility] Basophil percentage 100 mg/dL 74-106 [facility] Basophil percentage 7.5 g/dL 6.4-8.2 [facility] Basophil percentage 0.40 mg/dL 0.20-1.00 [facility] Basophil percentage 136 mmol/L 136-145 [facility] Basophil percentage 3.3 mmol/L 3.5-5.1 [facility] Basophil percentage 104 mmol/L 98-107 [facility] Basophils (Bld) [#/Vol] 15.4 10*3/uL 4.4-11.0 [facility] Basophils (Bld) [#/Vol] 7.7 10*3/uL 2.0-7.7 [facility] Basophils/100 WBC (Bld) 50.2 % 47-70 [facility] Basophils/100 WBC (Bld) 0.7 % 0-5 [facility] Basophils/100 WBC (Bld) 0.3 % 0-1 [facility] Bilirubin Test strip Ql (U)O rdered By: Casimiro Becerra on 02-11-2023 Bilirubin Ql (U) 1 mg/dL Negative [facility] Blood erythrocytes count (nu mber/volume)Ordered By: Casimiro Becerra on 02-11-2023 RBC (Bld) [#/Vol] 4.60 10*6/uL 4.2-5.4 [facility] Blood hemoglobin measurement (mass/volume)Ordered By: Casimiro Becerra on 02-11-2023 Hemoglobin (Bld) [Mass/Vol] 14.7 g/dL 12.0-15.0 [facility] Blood lymphocytes/100 leukoc ytesOrdered By: Casimiro Becerra on 02-11-2023 Lymphocytes/100 WBC (Bld) 42.2 % 19-41 [facility] Blood monocytes/100 leukocyt esOrdered By: Casimiro Becerra on 02-11-2023 Monocytes/100 WBC (Bld) 5.9 % 0-10 [facility] Blood platelet mean volumeOr dered By: Casimiro Becerra on 02-11-2023 Platelet mean volume (Bld) [Entitic vol] 9.5 fL 6.2-12.0 [facility] Determination of erythrocyte mean corpuscular volume (MCV)Ordered By: Casimiro Becerra on 02-11-2023 MCV (RBC) [Entitic vol] 93.5 fL 81-99 [facility] Direct bilirubinOrdered By: Casimiro Becerra on 02-11-2023 Bilirubin.direct [Mass/Vol] 0.15 mg/dL 0.00-0.30 [facility] Hematocrit Auto (Bld) [Volum e fraction]Ordered By: Casimiro Becerra on 02-11-2023 Hematocrit (Bld) [Volume fraction] 43.0 % 37-47 [facility] Ketones Test strip Ql (U)Ord ered By: Casimiro Becerra on 02-11-2023 Ketones Ql (U) 5 mg/dl Negative [facility] MCHC Auto (RBC) [Mass/Vol]Or dered By: Casimiro Becerra on 02-11-2023 MCHC (RBC) [Mass/Vol] 34.2 g/dL 32-36 [facility] Mucus LM Ql (Urine sed)Order ed By: Casimiro Becerra on 02-11-2023 Mucus Ql (Urine sed) 3+ /hpf [facility] Nitrite Test strip Ql (U)Ord ered By: Casimiro Becerra on 02-11-2023 Nitrite Ql (U) Negative Negative [facility] No Panel InformationOrdered By: Casimiro Becerra on 02-11-2023 32.0 pg 27.0-32.0 [facility] 12.3 % 11.6-14.6 [facility] 42.3 fl 35.1-43.9 [facility] 0.700 % 0.0-0.9 [facility] 0 % 0-5 [facility] 80 mL/min >60 [facility] 97 mL/min >60 [facility] 53.72 ml/min [facility] 22.0 RATIO 10-20 [facility] 3.7 g/dL 2.2-4.2 [facility] 62 U/L 45-117 [facility] 48 U/L 13-56 [facility] 25.0 mmol/L 21.0-32.0 [facility] 1.56 uIU/mL 0.358-3.74 [facility] Platelets bldOrdered By: Zeeshan Becerra on 02-11-2023 Platelets (Bld) [#/Vol] 289 10*3/uL 150-450 [facility] Protein Test strip Ql (U)Ord ered By: Casimiro Becerra on 02-11-2023 Protein Ql (U) 30 mg/dl Negative [facility] Serum or plasma albumin lavelle urement (mass/volume)Ordered By: Casimiro Becerra on 02-11-2023 Albumin [Mass/Vol] 3.8 g/dL 3.2-5.0 [facility] Serum or plasma calcium lavelle urement (mass/volume)Ordered By: Casimiro Becerra on 02-11-2023 Calcium [Mass/Vol] 9.5 mg/dL 8.5-10.1 [facility] Serum or plasma creatinine m easurement (mass/volume)Ordered By: Casimiro Becerra on 02-11-2023 Creatinine [Mass/Vol] 0.77 mg/dL 0.55-1.02 [facility] Serum or plasma urea nitroge n measurement (mass/volume)Ordered By: Casiimro Becerra on 02-11-2023 Urea nitrogen [Mass/Vol] 17 mg/dL -18 [facility] Squamous epithelial cells de tection in urine sediment by light microscopyOrdered By: Casimiro Becerra on 02-11-2023 Epithelial cells.squamous LM Ql (Urine sed) 0-5 SEEN /hpf 5-10 [facility] Thin prep Papanicolaou smear with manual screeningOrdered By: Casimiro Becerra on 02-11-2023 Thin prep Papanicolaou smear with manual screening 18 U/L 15-37 [facility] Thin prep Papanicolaou smear with manual screening 7 5-15 [facility] Urine blood detectionOrdered By: Casimiro Becerra on 02-11-2023 RBC Ql (U) 50 /ul Negative [facility] RBC Ql (U) 0-5 SEEN /hpf 0-5 [facility] Urine clarityOrdered By: Zeeshan Becerra on 02-11-2023 Clarity (U) Clear Clear [facility] Urine color determinationOrd ered By: Casimiro Becerra on 02-11-2023 Color (U) Yellow Yellow [facility] Urine glucose detectionOrder ed By: Casimiro Becerra on 02-11-2023 Glucose Ql (U) Normal mg/dl Normal [facility] Urine leukocyte esterase det ection by dipstickOrdered By: Casimiro Becerra on 02-11-2023 Leukocyte esterase Test strip Ql (U) 500 /ul Negative [facility] Urine pHOrdered By: Casimiro guajardo on 02-11-2023 pH (U) 5.0 [pH] 5.0 - 8.0 [facility] Urine sediment bacteria coun t by microscopy (number/high power field)Ordered By: Casimiro Becerra on 02-11-2023 Bacteria LM.HPF (Urine sed) [#/Area] 2 /[HPF] None Seen [facility] Urine specific gravity measu rementOrdered By: Casimiro Becerra on 02-11-2023 Specific gravity (U) [Rel density] 1.025 1.002-1.03 0 [facility] Urobilinogen Auto test strip Ql (U)Ordered By: Casimiro Becerra on 02-11-2023 Urobilinogen Ql (U) 1 mg/dl Normal [facility] Absolute lymphocyte countOrd ered By: ED PROVIDER on 02-03-2023 Lymphocytes Auto (Unsp spec) [#/Vol] 2.27 10*3/uL 0.83-4.51 [facility] Basophil percentageOrdered B y: ED PROVIDER on 02-03-2023 Basophil percentage 213 mg/dL 74-106 [facility] Basophil percentage 140 mmol/L 136-145 [facility] Basophil percentage 3.8 mmol/L 3.5-5.1 [facility] Basophil percentage 108 mmol/L 98-107 [facility] Basophils (Bld) [#/Vol] 12.3 10*3/uL 4.4-11.0 [facility] Basophils (Bld) [#/Vol] 9.6 10*3/uL 2.0-7.7 [facility] Basophils/100 WBC (Bld) 0.1 % 0-1 [facility] Basophils/100 WBC (Bld) 78.1 % 47-70 [facility] Basophils/100 WBC (Bld) 0.0 % 0-5 [facility] Chloride [Moles/Vol] 108 mmol/L 98-107 [facility] Eosinophils/100 WBC (Bld) 0.0 % 0-5 [facility] Glucose [Mass/Vol] 213 mg/dL 74-106 [facility] Comment on above: Glucose result great er than or equal to 200 mg/dLsuggests DIABETES MELLITUS per A.D.A. criteria. Neutrophils (Bld) [#/Vol] 9.6 10*3/uL 2.0-7.7 [facility] Neutrophils/100 WBC (Bld) 78.1 % 47-70 [facility] [facility] Pot[facility] [Moles/Vol] 3.8 mmol/L 3.5-5.1 [facility] Sodium [Moles/Vol] 140 mmol/L 136-145 [facility] WBC (Bld) [#/Vol] 12.3 10*3/uL 4.4-11.0 [facility] Blood erythrocytes count (nu mber/volume)Ordered By: ED PROVIDER on 02-03-2023 RBC (Bld) [#/Vol] 4.64 10*6/uL 4.2-5.4 [facility] Blood hemoglobin measurement (mass/volume)Ordered By: ED PROVIDER on 02-03-2023 Hemoglobin (Bld) [Mass/Vol] 14.7 g/dL 12.0-15.0 [facility] Blood lymphocytes/100 leukoc ytesOrdered By: ED PROVIDER on 02-03-2023 Lymphocytes/100 WBC (Bld) 18.4 % 19-41 [facility] Blood monocytes/100 leukocyt esOrdered By: ED PROVIDER on 02-03-2023 Monocytes/100 WBC (Bld) 2.9 % 0-10 [facility] Blood platelet mean volumeOr dered By: ED PROVIDER on 02-03-2023 Platelet mean volume (Bld) [Entitic vol] 9.2 fL 6.2-12.0 [facility] Determination of erythrocyte mean corpuscular volume (MCV)Ordered By: ED PROVIDER on 02-03-2023 MCV (RBC) [Entitic vol] 92.5 fL 81-99 [facility] Hematocrit Auto (Bld) [Volum e fraction]Ordered By: ED PROVIDER on 02-03-2023 Hematocrit (Bld) [Volume fraction] 42.9 % 37-47 [facility] Laboratory - Chemistry and C hemistry - challengeOrdered By: ED PROVIDER on 02-03-2023 CO2 [Moles/Vol] 26.0 mmol/L 21.0-32.0 [facility] Urea nitrogen/Creatinine [Mass ratio] 14.1 mg/mg 10-20 [facility] Laboratory - Hematology and Cell countsOrdered By: ED PROVIDER on 02-03-2023 Erythrocyte distribution width (RBC) [Entitic vol] 41.8 fL 35.1-43.9 [facility] Erythrocyte distribution width (RBC) [Ratio] 12.2 % 11.6-14.6 [facility] Immature granulocytes/100 WBC (Bld) 0.500 % 0.0-0.9 [facility] Comment on above: IG% - Immature Granu locytes (promyelocytes, myelocytes and metamyelocytes) > 1% indicates that a LEFT SHIFT is Present. MCH (RBC) [Entitic mass] 31.7 pg 27.0-32.0 [facility] Nucleated RBC/100 WBC (Bld) [Ratio] 0 % 0-5 [facility] MCHC Auto (RBC) [Mass/Vol]Or dered By: ED PROVIDER on 02-03-2023 MCHC (RBC) [Mass/Vol] 34.3 g/dL 32-36 [facility] No Panel InformationOrdered By: ED PROVIDER on 02-03-2023 Estimated GFR (MDRD) Amer 79 mL/min >60 [facility] Comment on above: GFR Calc Estimated GFR (MDRD) Non-Af Amer 65 mL/min >60 [facility] Comment on above: Non- GFR Calc Troponin I High Sensitivity 9 pg/mL 3.0-54.0 [facility] Comment on above: Please Note: New Trena t Units and Gender Specific Reference Ranges. For more information see Policy Stat Procedure [place] High Sensitivity Troponin (TNIH) and attachments. 31.7 pg 27.0-32.0 [facility] 12.2 % 11.6-14.6 [facility] 41.8 fl 35.1-43.9 [facility] 0.500 % 0.0-0.9 [facility] 0 % 0-5 [facility] 65 mL/min >60 [facility] 79 mL/min >60 [facility] 14.1 RATIO 10-20 [facility] 9 pg/mL 3.0-54.0 [facility] 26.0 mmol/L 21.0-32.0 [facility] Platelets bldOrdered By: ED PROVIDER on 02-03-2023 Platelets (Bld) [#/Vol] 286 10*3/uL 150-450 [facility] Serum or plasma calcium lavelle urement (mass/volume)Ordered By: ED PROVIDER on 02-03-2023 Calcium [Mass/Vol] 9.9 mg/dL 8.5-10.1 [facility] Serum or plasma creatinine m easurement (mass/volume)Ordered By: ED PROVIDER on 02-03-2023 Creatinine [Mass/Vol] 0.92 mg/dL 0.55-1.02 [facility] Comment on above: The validity of the calculated GFR & GFRAA in patients over 70 years has not been determined. Clinical correlation is essential. Serum or plasma urea nitroge n measurement (mass/volume)Ordered By: ED PROVIDER on 02-03-2023 Urea nitrogen [Mass/Vol] 13 mg/dL 7-18 [facility] Thin prep Papanicolaou smear with manual screeningOrdered By: ED PROVIDER on 02-03-2023 Thin prep Papanicolaou smear with manual screening 6 5-15 [facility] Bacteria identified Cx Nom ( U)Ordered By: Reji Strickland on 01-24-2023 Culture, urine Positive [facility] Culture, urineOrdered By: St padmini Strickland on 01-24-2023 Bacteria identified Cx Nom (U) Positive [facility] Laboratory - Chemistry and C hemistry - challengeon 01-23-2023 Glucose Ql (U) Negative [facility] Specific gravity (U) [Rel density] 1.015 [facility] Laboratory - Hematology and Cell countson 01-23-2023 Hemoglobin Ql (U) [facility] Laboratory - Specimen inform ationon 01-23-2023 Clarity (U) Clear [facility] Color (U) YELLOW [facility] Laboratory - Urinalysison Nitrite Ql (U) Negative [facility] Protein Ql (U) Negative [facility] No Panel Informationon 01-23 Urine Leukocytes Negve [facility] YELLOW [facility] Clear [facility] Negative [facility] 1.015 [facility] Large [facility] Negve [facility] Laboratory - Chemistry and C hemistry - challengeOrdered By: Dr. Buenrostro on 01-21-2023 Cobalamin (Vitamin B12) [Mass/Vol] 503 pg/mL [facility] No Panel InformationOrdered By: Dr. Buenrostro on 01-21-2023 Thyroid Stimulating Hormone (TSH) 0.28 uIU/mL 0.358-3.74 [facility] Vitamin D 25-Hydroxy 37.5 ng/mL [facility] Comment on above: Vitamin D 25(OH) Sta tus Range Deficiency <20 ng/mL (50nmol/L) Insufficiency 20 - 30 ng/mL (50 - 75 nmol/L) Sufficiency 30 - 100 ng/mL (75 - 250 nmol/L) Toxicity >100 ng/mL (>250 nmol/L) 0.28 uIU/mL 0.358-3.74 [facility] 503 pg/mL [facility] 37.5 ng/mL [facility] Whole blood hemoglobin A1c/t otal hemoglobin ratio (mass fraction)Ordered By: Dr. Buenrostro on 01-21-2023 HbA1c (Bld) [Mass fraction] 6.1 % 3.8-5.6 [facility] Comment on above: Normal < 5.7 % Predi abetic 5.7 - 6.4 % Diabetic >or= 6.5 % Please note range changes. Absolute lymphocyte countOrd ered By: Dr. Finch on 01-20-2023 Lymphocytes Auto (Unsp spec) [#/Vol] 3.14 10*3/uL 0.83-4.51 [facility] Basophil percentageOrdered B y: Dr. Finch on 01-20-2023 Basophil percentage 0 SEEN /hpf 0-5 [facility] Basophil percentage 116 mg/dL 74-106 [facility] Basophil percentage 7.5 g/dL 6.4-8.2 [facility] Basophil percentage 0.30 mg/dL 0.20-1.00 [facility] Basophil percentage 137 mmol/L 136-145 [facility] Basophil percentage 4.2 mmol/L 3.5-5.1 [facility] Basophil percentage 106 mmol/L 98-107 [facility] Basophils (Bld) [#/Vol] 14.0 10*3/uL 4.4-11.0 [facility] Basophils (Bld) [#/Vol] 10.2 10*3/uL 2.0-7.7 [facility] Basophils/100 WBC (Bld) 0.1 % 0-1 [facility] Basophils/100 WBC (Bld) 73.2 % 47-70 [facility] Basophils/100 WBC (Bld) 0.0 % 0-5 [facility] Bilirubin [Mass/Vol] 0.30 mg/dL 0.20-1.00 [facility] Comment on above: For patients on eltr ombopag therapy, use of Dimension [place] TBIL is not recommended. Chloride [Moles/Vol] 106 mmol/L 98-107 [facility] Eosinophils/100 WBC (Bld) 0.0 % 0-5 [facility] Glucose [Mass/Vol] 116 mg/dL 74-106 [facility] Comment on above: Fasting Glucose resu lt from 100 to 125 mg/dL suggests IMPAIRED HOMEOSTASIS per A.D.A. criteria. Neutrophils (Bld) [#/Vol] 10.2 10*3/uL 2.0-7.7 [facility] Neutrophils/100 WBC (Bld) 73.2 % 47-70 [facility] Potassium [Moles/Vol] 4.2 mmol/L 3.5-5.1 [facility] Protein [Mass/Vol] 7.5 g/dL 6.4-8.2 [facility] Sodium [Moles/Vol] 137 mmol/L 136-145 [facility] WBC (Bld) [#/Vol] 14.0 10*3/uL 4.4-11.0 [facility] Bilirubin Test strip Ql (U)O rdered By: Dr. Finch on 01-20-2023 Bilirubin Ql (U) Negative Negative [facility] Blood erythrocytes count (nu mber/volume)Ordered By: Dr. Finch on 01-20-2023 RBC (Bld) [#/Vol] 4.63 10*6/uL 4.2-5.4 [facility] Blood hemoglobin measurement (mass/volume)Ordered By: Dr. Finch on 01-20-2023 Hemoglobin (Bld) [Mass/Vol] 14.6 g/dL 12.0-15.0 [facility] Blood lymphocytes/100 leukoc ytesOrdered By: Dr. Finch on 01-20-2023 Lymphocytes/100 WBC (Bld) 22.5 % 19-41 [facility] Blood monocytes/100 leukocyt esOrdered By: Dr. Finch on 01-20-2023 Monocytes/100 WBC (Bld) 3.9 % 0-10 [facility] Blood platelet mean volumeOr dered By: Dr. Finch on 01-20-2023 Platelet mean volume (Bld) [Entitic vol] 9.8 fL 6.2-12.0 [facility] Determination of erythrocyte mean corpuscular volume (MCV)Ordered By: Dr. Finch on 01-20-2023 MCV (RBC) [Entitic vol] 92.9 fL 81-99 [facility] Hematocrit Auto (Bld) [Volum e fraction]Ordered By: Dr. Finch on 01-20-2023 Hematocrit (Bld) [Volume fraction] 43.0 % 37-47 [facility] Ketones Test strip Ql (U)Ord ered By: Dr. Finch on 01-20-2023 Ketones Ql (U) Negative Negative [facility] Laboratory - Chemistry and C hemistry - challengeOrdered By: Dr. Finch on 01-20-2023 ALP [Catalytic activity/Vol] 65 U/L 45-117 [facility] ALT [Catalytic activity/Vol] 44 U/L 13-56 [facility] CO2 [Moles/Vol] 27.0 mmol/L 21.0-32.0 [facility] Globulin (S) [Mass/Vol] 3.9 g/dL 2.2-4.2 [facility] Lipase [Catalytic activity/Vol] 126 U/L 73-393 [facility] Urea nitrogen/Creatinine [Mass ratio] 24.9 mg/mg 10-20 [facility] Laboratory - Hematology and Cell countsOrdered By: Dr. Finch on 01-20-2023 Erythrocyte distribution width (RBC) [Entitic vol] 40.6 fL 35.1-43.9 [facility] Erythrocyte distribution width (RBC) [Ratio] 12.0 % 11.6-14.6 [facility] Immature granulocytes/100 WBC (Bld) 0.300 % 0.0-0.9 [facility] Comment on above: IG% - Immature Granu locytes (promyelocytes, myelocytes and metamyelocytes) > 1% indicates that a LEFT SHIFT is Present. MCH (RBC) [Entitic mass] 31.5 pg 27.0-32.0 [facility] Nucleated RBC/100 WBC (Bld) [Ratio] 0 % 0-5 [facility] MCHC Auto (RBC) [Mass/Vol]Or dered By: Dr. Finch on 01-20-2023 MCHC (RBC) [Mass/Vol] 34.0 g/dL 32-36 [facility] Mucus LM Ql (Urine sed)Order ed By: Dr. Finch on 01-20-2023 Mucus Ql (Urine sed) 0 SEEN /hpf [facility] Nitrite Test strip Ql (U)Ord ered By: Dr. Finch on 01-20-2023 Nitrite Ql (U) Negative Negative [facility] No Panel InformationOrdered By: Dr. Finch on 01-20-2023 Estimated GFR (MDRD) Amer 105 mL/min >60 [facility] Comment on above: GFR Calc Estimated GFR (MDRD) Non-Af Amer 86 mL/min >60 [facility] Comment on above: Non- GFR Calc 31.5 pg 27.0-32.0 [facility] 12.0 % 11.6-14.6 [facility] 40.6 fl 35.1-43.9 [facility] 0.300 % 0.0-0.9 [facility] 0 % 0-5 [facility] 86 mL/min >60 [facility] 105 mL/min >60 [facility] 24.9 RATIO 10-20 [facility] 3.9 g/dL 2.2-4.2 [facility] 126 U/L 73-393 [facility] 65 U/L 45-117 [facility] 44 U/L 13-56 [facility] 27.0 mmol/L 21.0-32.0 [facility] Platelets bldOrdered By: Dr. Finch on 01-20-2023 Platelets (Bld) [#/Vol] 266 10*3/uL 150-450 [facility] Protein Test strip Ql (U)Ord ered By: Dr. Finch on 01-20-2023 Protein Ql (U) Negative Negative [facility] Serum or plasma albumin lavelle urement (mass/volume)Ordered By: Dr. Finch on 01-20-2023 Albumin [Mass/Vol] 3.6 g/dL 3.2-5.0 [facility] Serum or plasma albumin/glob ulin mass ratioOrdered By: Dr. Finch on 01-20-2023 Albumin/Globulin [Mass ratio] 0.9 {ratio} 0.9-2.4 [facility] Serum or plasma calcium lavelle urement (mass/volume)Ordered By: Dr. Finch on 01-20-2023 Calcium [Mass/Vol] 9.0 mg/dL 8.5-10.1 [facility] Serum or plasma creatinine m easurement (mass/volume)Ordered By: Dr. Finch on 01-20-2023 Creatinine [Mass/Vol] 0.72 mg/dL 0.55-1.02 [facility] Comment on above: The validity of the calculated GFR & GFRAA in patients over 70 years has not been determined. Clinical correlation is essential. Serum or plasma urea nitroge n measurement (mass/volume)Ordered By: Dr. Finch on 01-20-2023 Urea nitrogen [Mass/Vol] 18 mg/dL 7-18 [facility] Squamous epithelial cells de tection in urine sediment by light microscopyOrdered By: Dr. Finch on 01-20-2023 Epithelial cells.squamous LM Ql (Urine sed) 0 SEEN /hpf 5-10 [facility] Thin prep Papanicolaou smear with manual screeningOrdered By: Dr. Finch on 01-20-2023 Thin prep Papanicolaou smear with manual screening 20 U/L 15-37 [facility] Thin prep Papanicolaou smear with manual screening 4 5-15 [facility] Urine blood detectionOrdered By: Dr. Finch on 01-20-2023 RBC Ql (U) 25 /ul Negative [facility] RBC Ql (U) 0-5 SEEN /hpf 0-5 [facility] Urine clarityOrdered By: Dr. Finch on 01-20-2023 Clarity (U) Clear Clear [facility] Urine color determinationOrd ered By: Dr. Finch on 01-20-2023 Color (U) Yellow Yellow [facility] Urine glucose detectionOrder ed By: Dr. Finch on 01-20-2023 Glucose Ql (U) Normal mg/dl Normal [facility] Urine leukocyte esterase det ection by dipstickOrdered By: Dr. Finch on 01-20-2023 Leukocyte esterase Test strip Ql (U) Negative Negative [facility] Urine pHOrdered By: Dr. Des arce on 01-20-2023 pH (U) 7.0 [pH] 5.0 - 8.0 [facility] Urine sediment bacteria coun t by microscopy (number/high power field)Ordered By: Dr. Finch on 01-20-2023 Bacteria LM.HPF (Urine sed) [#/Area] 0 /[HPF] None Seen [facility] Urine specific gravity measu rementOrdered By: Dr. Finch on 01-20-2023 Specific gravity (U) [Rel density] 1.005 1.002-1.03 0 [facility] Urobilinogen Auto test strip Ql (U)Ordered By: Dr. Finch on 01-20-2023 Urobilinogen Ql (U) Normal mg/dl Normal [facility] Absolute lymphocyte countOrd ered By: Dr. Lugo on 01-14-2023 Lymphocytes Auto (Unsp spec) [#/Vol] 3.27 10*3/uL 0.83-4.51 [facility] Basophil percentageOrdered B y: Dr. Lugo on 01-14-2023 Basophil percentage 126 mg/dL 74-106 [facility] Basophil percentage 7.5 g/dL 6.4-8.2 [facility] Basophil percentage 0.70 mg/dL 0.20-1.00 [facility] Basophil percentage 141 mmol/L 136-145 [facility] Basophil percentage 3.5 mmol/L 3.5-5.1 [facility] Basophil percentage 109 mmol/L 98-107 [facility] Basophils (Bld) [#/Vol] 13.7 10*3/uL 4.4-11.0 [facility] Basophils (Bld) [#/Vol] 9.7 10*3/uL 2.0-7.7 [facility] Basophils/100 WBC (Bld) 0.1 % 0-1 [facility] Basophils/100 WBC (Bld) 71.2 % 47-70 [facility] Basophils/100 WBC (Bld) 0.0 % 0-5 [facility] Bilirubin [Mass/Vol] 0.70 mg/dL 0.20-1.00 [facility] Comment on above: For patients on eltr ombopag therapy, use of Dimension [place] TBIL is not recommended. Chloride [Moles/Vol] 109 mmol/L 98-107 [facility] Eosinophils/100 WBC (Bld) 0.0 % 0-5 [facility] Glucose [Mass/Vol] 126 mg/dL 74-106 [facility] Comment on above: Fasting Glucose resu lt greater than or equal to 126 mg/dL suggests DIABETES MELLITUS per A.D.A. criteria. Neutrophils (Bld) [#/Vol] 9.7 10*3/uL 2.0-7.7 [facility] Neutrophils/100 WBC (Bld) 71.2 % 47-70 [facility] Potassium [Moles/Vol] 3.5 mmol/L 3.5-5.1 [facility] Protein [Mass/Vol] 7.5 g/dL 6.4-8.2 [facility] Sodium [Moles/Vol] 141 mmol/L 136-145 [facility] WBC (Bld) [#/Vol] 13.7 10*3/uL 4.4-11.0 [facility] Blood erythrocytes count (nu mber/volume)Ordered By: Dr. Lugo on 01-14-2023 RBC (Bld) [#/Vol] 4.76 10*6/uL 4.2-5.4 [facility] Blood hemoglobin measurement (mass/volume)Ordered By: Dr. Lugo on 01-14-2023 Hemoglobin (Bld) [Mass/Vol] 15.0 g/dL 12.0-15.0 [facility] Blood lymphocytes/100 leukoc ytesOrdered By: Dr. Lugo on 01-14-2023 Lymphocytes/100 WBC (Bld) 23.9 % 19-41 [facility] Blood monocytes/100 leukocyt esOrdered By: Dr. Lugo on 01-14-2023 Monocytes/100 WBC (Bld) 4.5 % 0-10 [facility] Blood platelet mean volumeOr dered By: Dr. Lugo on 01-14-2023 Platelet mean volume (Bld) [Entitic vol] 10.1 fL 6.2-12.0 [facility] Determination of erythrocyte mean corpuscular volume (MCV)Ordered By: Dr. Lugo on 01-14-2023 MCV (RBC) [Entitic vol] 91.4 fL 81-99 [facility] Hematocrit Auto (Bld) [Volum e fraction]Ordered By: Dr. Lugo on 01-14-2023 Hematocrit (Bld) [Volume fraction] 43.5 % 37-47 [facility] Laboratory - Chemistry and C hemistry - challengeOrdered By: Dr. Lugo on 01-14-2023 ALP [Catalytic activity/Vol] 68 U/L 45-117 [facility] ALT [Catalytic activity/Vol] 48 U/L 13-56 [facility] CO2 [Moles/Vol] 23.0 mmol/L 21.0-32.0 [facility] Globulin (S) [Mass/Vol] 3.7 g/dL 2.2-4.2 [facility] Lipase [Catalytic activity/Vol] 247 U/L 73-393 [facility] Urea nitrogen/Creatinine [Mass ratio] 26.2 mg/mg 10-20 [facility] Laboratory - Hematology and Cell countsOrdered By: Dr. Lugo on 01-14-2023 Erythrocyte distribution width (RBC) [Entitic vol] 38.9 fL 35.1-43.9 [facility] Erythrocyte distribution width (RBC) [Ratio] 11.6 % 11.6-14.6 [facility] Immature granulocytes/100 WBC (Bld) 0.300 % 0.0-0.9 [facility] Comment on above: IG% - Immature Granu locytes (promyelocytes, myelocytes and metamyelocytes) > 1% indicates that a LEFT SHIFT is Present. MCH (RBC) [Entitic mass] 31.5 pg 27.0-32.0 [facility] Nucleated RBC/100 WBC (Bld) [Ratio] 0 % 0-5 [facility] MCHC Auto (RBC) [Mass/Vol]Or dered By: Dr. Lugo on 01-14-2023 MCHC (RBC) [Mass/Vol] 34.5 g/dL 32-36 [facility] No Panel InformationOrdered By: Dr. Lugo on 01-14-2023 Estimated Creatinine Clearance Calc 51.70 ml/min [facility] Estimated GFR (MDRD) Amer 93 mL/min >60 [facility] Comment on above: GFR Calc Estimated GFR (MDRD) Non-Af Amer 77 mL/min >60 [facility] Comment on above: Non- GFR Calc 31.5 pg 27.0-32.0 [facility] 11.6 % 11.6-14.6 [facility] 38.9 fl 35.1-43.9 [facility] 0.300 % 0.0-0.9 [facility] 0 % 0-5 [facility] 77 mL/min >60 [facility] 93 mL/min >60 [facility] 51.70 ml/min [facility] 26.2 RATIO 10-20 [facility] 3.7 g/dL 2.2-4.2 [facility] 247 U/L 73-393 [facility] 68 U/L 45-117 [facility] 48 U/L 13-56 [facility] 23.0 mmol/L 21.0-32.0 [facility] Platelets bldOrdered By: Dr. Lugo on 01-14-2023 Platelets (Bld) [#/Vol] 269 10*3/uL 150-450 [facility] Serum or plasma albumin lavelle urement (mass/volume)Ordered By: Dr. Lugo on 01-14-2023 Albumin [Mass/Vol] 3.8 g/dL 3.2-5.0 [facility] Serum or plasma albumin/glob ulin mass ratioOrdered By: Dr. Lugo on 01-14-2023 Albumin/Globulin [Mass ratio] 1.0 {ratio} 0.9-2.4 [facility] Serum or plasma calcium lavelle urement (mass/volume)Ordered By: Dr. Lugo on 01-14-2023 Calcium [Mass/Vol] 9.5 mg/dL 8.5-10.1 [facility] Serum or plasma creatinine m easurement (mass/volume)Ordered By: Dr. Lugo on 01-14-2023 Creatinine [Mass/Vol] 0.80 mg/dL 0.55-1.02 [facility] Comment on above: The validity of the calculated GFR & GFRAA in patients over 70 years has not been determined. Clinical correlation is essential. Serum or plasma urea nitroge n measurement (mass/volume)Ordered By: Dr. Lugo on 01-14-2023 Urea nitrogen [Mass/Vol] 21 mg/dL 7-18 [facility] Thin prep Papanicolaou smear with manual screeningOrdered By: Dr. Lugo on 01-14-2023 Thin prep Papanicolaou smear with manual screening 13 U/L 15-37 [facility] Thin prep Papanicolaou smear with manual screening 9 5-15 [facility] Absolute lymphocyte countOrd ered By: ED PROVIDER on 01-10-2023 Lymphocytes Auto (Unsp spec) [#/Vol] 2.48 10*3/uL 0.83-4.51 [facility] Basophil percentageOrdered B y: ED PROVIDER on 01-10-2023 Basophil percentage 0-5 SEEN /hpf 0-5 [facility] Basophil percentage 152 mg/dL 74-106 [facility] Basophil percentage 137 mmol/L 136-145 [facility] Basophil percentage 4.3 mmol/L 3.5-5.1 [facility] Basophil percentage 104 mmol/L 98-107 [facility] Basophils (Bld) [#/Vol] 17.1 10*3/uL 4.4-11.0 [facility] Basophils (Bld) [#/Vol] 14.0 10*3/uL 2.0-7.7 [facility] Basophils/100 WBC (Bld) 0.1 % 0-1 [facility] Basophils/100 WBC (Bld) 81.8 % 47-70 [facility] Basophils/100 WBC (Bld) 0.0 % 0-5 [facility] Chloride [Moles/Vol] 104 mmol/L 98-107 [facility] Eosinophils/100 WBC (Bld) 0.0 % 0-5 [facility] Glucose [Mass/Vol] 152 mg/dL 74-106 [facility] Comment on above: Fasting Glucose resu lt greater than or equal to 126 mg/dL suggests DIABETES MELLITUS per A.D.A. criteria. Neutrophils (Bld) [#/Vol] 14.0 10*3/uL 2.0-7.7 [facility] Neutrophils/100 WBC (Bld) 81.8 % 47-70 [facility] Potassium [Moles/Vol] 4.3 mmol/L 3.5-5.1 [facility] Sodium [Moles/Vol] 137 mmol/L 136-145 [facility] WBC (Bld) [#/Vol] 17.1 10*3/uL 4.4-11.0 [facility] Basophil percentageOrdered B y: Dr. Godoy on 01-10-2023 Basophil percentage 8.4 g/dL 6.4-8.2 [facility] Basophil percentage 0.60 mg/dL 0.20-1.00 [facility] Bilirubin [Mass/Vol] 0.60 mg/dL 0.20-1.00 [facility] Comment on above: For patients on eltr ombopag therapy, use of Dimension [place] TBIL is not recommended. Protein [Mass/Vol] 8.4 g/dL 6.4-8.2 [facility] Bilirubin Test strip Ql (U)O rdered By: ED PROVIDER on 01-10-2023 Bilirubin Ql (U) Negative Negative [facility] Blood erythrocytes count (nu mber/volume)Ordered By: ED PROVIDER on 01-10-2023 RBC (Bld) [#/Vol] 4.95 10*6/uL 4.2-5.4 [facility] Blood hemoglobin measurement (mass/volume)Ordered By: ED PROVIDER on 01-10-2023 Hemoglobin (Bld) [Mass/Vol] 15.6 g/dL 12.0-15.0 [facility] Blood lymphocytes/100 leukoc ytesOrdered By: ED PROVIDER on 01-10-2023 Lymphocytes/100 WBC (Bld) 14.5 % 19-41 [facility] Blood monocytes/100 leukocyt esOrdered By: ED PROVIDER on 01-10-2023 Monocytes/100 WBC (Bld) 3.2 % 0-10 [facility] Blood platelet mean volumeOr dered By: ED PROVIDER on 01-10-2023 Platelet mean volume (Bld) [Entitic vol] 9.7 fL 6.2-12.0 [facility] Determination of erythrocyte mean corpuscular volume (MCV)Ordered By: ED PROVIDER on 01-10-2023 MCV (RBC) [Entitic vol] 91.3 fL 81-99 [facility] Direct bilirubinOrdered By: Dr. Godoy on 01-10-2023 Bilirubin.direct [Mass/Vol] 0.17 mg/dL 0.00-0.30 [facility] Hematocrit Auto (Bld) [Volum e fraction]Ordered By: ED PROVIDER on 01-10-2023 Hematocrit (Bld) [Volume fraction] 45.2 % 37-47 [facility] Ketones Test strip Ql (U)Ord ered By: ED PROVIDER on 01-10-2023 Ketones Ql (U) Negative Negative [facility] Laboratory - Chemistry and C hemistry - challengeOrdered By: Dr. Godoy on 01-10-2023 ALP [Catalytic activity/Vol] 71 U/L 45-117 [facility] ALT [Catalytic activity/Vol] 57 U/L 13-56 [facility] Globulin (S) [Mass/Vol] 4.2 g/dL 2.2-4.2 [facility] Lipase [Catalytic activity/Vol] 752 U/L 73-393 [facility] Laboratory - Chemistry and C hemistry - challengeOrdered By: ED PROVIDER on 01-10-2023 CO2 [Moles/Vol] 26.0 mmol/L 21.0-32.0 [facility] Urea nitrogen/Creatinine [Mass ratio] 24.2 mg/mg 10-20 [facility] Laboratory - Hematology and Cell countsOrdered By: ED PROVIDER on 01-10-2023 Erythrocyte distribution width (RBC) [Entitic vol] 39.4 fL 35.1-43.9 [facility] Erythrocyte distribution width (RBC) [Ratio] 11.9 % 11.6-14.6 [facility] Immature granulocytes/100 WBC (Bld) 0.400 % 0.0-0.9 [facility] Comment on above: IG% - Immature Granu locytes (promyelocytes, myelocytes and metamyelocytes) > 1% indicates that a LEFT SHIFT is Present. MCH (RBC) [Entitic mass] 31.5 pg 27.0-32.0 [facility] Nucleated RBC/100 WBC (Bld) [Ratio] 0 % 0-5 [facility] MCHC Auto (RBC) [Mass/Vol]Or dered By: ED PROVIDER on 01-10-2023 MCHC (RBC) [Mass/Vol] 34.5 g/dL 32-36 [facility] Mucus LM Ql (Urine sed)Order ed By: ED PROVIDER on 01-10-2023 Mucus Ql (Urine sed) 0 SEEN /hpf [facility] Nitrite Test strip Ql (U)Ord ered By: ED PROVIDER on 01-10-2023 Nitrite Ql (U) Negative Negative [facility] No Panel InformationOrdered By: ED PROVIDER on 01-10-2023 Estimated Creatinine Clearance Calc 49.83 ml/min [facility] Estimated GFR (MDRD) Amer 89 mL/min >60 [facility] Comment on above: GFR Calc Estimated GFR (MDRD) Non-Af Amer 74 mL/min >60 [facility] Comment on above: Non- GFR Calc 31.5 pg 27.0-32.0 [facility] 11.9 % 11.6-14.6 [facility] 39.4 fl 35.1-43.9 [facility] 0.400 % 0.0-0.9 [facility] 0 % 0-5 [facility] 74 mL/min >60 [facility] 89 mL/min >60 [facility] 49.83 ml/min [facility] 24.2 RATIO 10-20 [facility] 26.0 mmol/L 21.0-32.0 [facility] No Panel InformationOrdered By: Dr. Godoy on 01-10-2023 4.2 g/dL 2.2-4.2 [facility] 752 U/L 73-393 [facility] 71 U/L 45-117 [facility] 57 U/L 13-56 [facility] Platelets bldOrdered By: ED PROVIDER on 01-10-2023 Platelets (Bld) [#/Vol] 278 10*3/uL 150-450 [facility] Protein Test strip Ql (U)Ord ered By: ED PROVIDER on 01-10-2023 Protein Ql (U) 15 mg/dl Negative [facility] Serum or plasma albumin lavelle urement (mass/volume)Ordered By: Dr. Godoy on 01-10-2023 Albumin [Mass/Vol] 4.2 g/dL 3.2-5.0 [facility] Serum or plasma calcium lavelle urement (mass/volume)Ordered By: ED PROVIDER on 01-10-2023 Calcium [Mass/Vol] 10.2 mg/dL 8.5-10.1 [facility] Serum or plasma creatinine m easurement (mass/volume)Ordered By: ED PROVIDER on 01-10-2023 Creatinine [Mass/Vol] 0.83 mg/dL 0.55-1.02 [facility] Comment on above: The validity of the calculated GFR & GFRAA in patients over 70 years has not been determined. Clinical correlation is essential. Serum or plasma urea nitroge n measurement (mass/volume)Ordered By: ED PROVIDER on 01-10-2023 Urea nitrogen [Mass/Vol] 20 mg/dL 7-18 [facility] Squamous epithelial cells de tection in urine sediment by light microscopyOrdered By: ED PROVIDER on 01-10-2023 Epithelial cells.squamous LM Ql (Urine sed) 0 SEEN /hpf 5-10 [facility] Thin prep Papanicolaou smear with manual screeningOrdered By: Dr. Godoy on 01-10-2023 Thin prep Papanicolaou smear with manual screening 25 U/L 15-37 [facility] Thin prep Papanicolaou smear with manual screeningOrdered By: ED PROVIDER on 01-10-2023 Thin prep Papanicolaou smear with manual screening 7 5-15 [facility] Urine blood detectionOrdered By: ED PROVIDER on 01-10-2023 RBC Ql (U) 25 /ul Negative [facility] RBC Ql (U) 0 SEEN /hpf 0-5 [facility] Urine clarityOrdered By: ED PROVIDER on 01-10-2023 Clarity (U) Clear Clear [facility] Urine color determinationOrd ered By: ED PROVIDER on 01-10-2023 Color (U) Yellow Yellow [facility] Urine glucose detectionOrder ed By: ED PROVIDER on 01-10-2023 Glucose Ql (U) Normal mg/dl Normal [facility] Urine leukocyte esterase det ection by dipstickOrdered By: ED PROVIDER on 01-10-2023 Leukocyte esterase Test strip Ql (U) 25 /ul Negative [facility] Urine pHOrdered By: ED PROVI ANN on 01-10-2023 pH (U) 6.5 [pH] 5.0 - 8.0 [facility] Urine sediment bacteria coun t by microscopy (number/high power field)Ordered By: ED PROVIDER on 01-10-2023 Bacteria LM.HPF (Urine sed) [#/Area] 0 /[HPF] None Seen [facility] Urine specific gravity measu rementOrdered By: ED PROVIDER on 01-10-2023 Specific gravity (U) [Rel density] 1.015 1.002-1.03 0 [facility] Urobilinogen Auto test strip Ql (U)Ordered By: ED PROVIDER on 01-10-2023 Urobilinogen Ql (U) Normal mg/dl Normal [facility] Absolute lymphocyte countOrd ered By: Dr. Muñoz on 01-04-2023 Lymphocytes Auto (Unsp spec) [#/Vol] 4.80 10*3/uL 0.83-4.51 [facility] Basophil percentageOrdered B y: Dr. Muñoz on 01-04-2023 Basophil percentage 78 mg/dL 74-106 [facility] Basophil percentage 141 mmol/L 136-145 [facility] Basophil percentage 4.3 mmol/L 3.5-5.1 [facility] Basophil percentage 106 mmol/L 98-107 [facility] Basophils (Bld) [#/Vol] 15.9 10*3/uL 4.4-11.0 [facility] Basophils (Bld) [#/Vol] 10.0 10*3/uL 2.0-7.7 [facility] Basophils/100 WBC (Bld) 0.1 % 0-1 [facility] Basophils/100 WBC (Bld) 62.8 % 47-70 [facility] Basophils/100 WBC (Bld) 0.2 % 0-5 [facility] Chloride [Moles/Vol] 106 mmol/L 98-107 [facility] Eosinophils/100 WBC (Bld) 0.2 % 0-5 [facility] Glucose [Mass/Vol] 78 mg/dL 74-106 [facility] Neutrophils (Bld) [#/Vol] 10.0 10*3/uL 2.0-7.7 [facility] Neutrophils/100 WBC (Bld) 62.8 % 47-70 [facility] Potassium [Moles/Vol] 4.3 mmol/L 3.5-5.1 [facility] Comment on above: Slight Hemolysis, Re sult may be falsely increased. Sodium [Moles/Vol] 141 mmol/L 136-145 [facility] WBC (Bld) [#/Vol] 15.9 10*3/uL 4.4-11.0 [facility] Blood erythrocytes count (nu mber/volume)Ordered By: Dr. Muñoz on 01-04-2023 RBC (Bld) [#/Vol] 4.32 10*6/uL 4.2-5.4 [facility] Blood hemoglobin measurement (mass/volume)Ordered By: Dr. Muñoz on 01-04-2023 Hemoglobin (Bld) [Mass/Vol] 13.6 g/dL 12.0-15.0 [facility] Blood lymphocytes/100 leukoc ytesOrdered By: Dr. Muñoz on 01-04-2023 Lymphocytes/100 WBC (Bld) 30.3 % 19-41 [facility] Blood monocytes/100 leukocyt esOrdered By: Dr. Muñoz on 01-04-2023 Monocytes/100 WBC (Bld) 6.2 % 0-10 [facility] Blood platelet mean volumeOr dered By: Dr. Muñoz on 01-04-2023 Platelet mean volume (Bld) [Entitic vol] 10.0 fL 6.2-12.0 [facility] Determination of erythrocyte mean corpuscular volume (MCV)Ordered By: Dr. Muñoz on 01-04-2023 MCV (RBC) [Entitic vol] 92.6 fL 81-99 [facility] Hematocrit Auto (Bld) [Volum e fraction]Ordered By: Dr. Muñoz on 01-04-2023 Hematocrit (Bld) [Volume fraction] 40.0 % 37-47 [facility] Laboratory - Chemistry and C hemistry - challengeOrdered By: Dr. Muñoz on 01-04-2023 CO2 [Moles/Vol] 28.0 mmol/L 21.0-32.0 [facility] Urea nitrogen/Creatinine [Mass ratio] 17.4 mg/mg 10-20 [facility] Laboratory - Hematology and Cell countsOrdered By: Dr. Muñoz on 01-04-2023 Erythrocyte distribution width (RBC) [Entitic vol] 40.1 fL 35.1-43.9 [facility] Erythrocyte distribution width (RBC) [Ratio] 11.8 % 11.6-14.6 [facility] Immature granulocytes/100 WBC (Bld) 0.400 % 0.0-0.9 [facility] Comment on above: IG% - Immature Granu locytes (promyelocytes, myelocytes and metamyelocytes) > 1% indicates that a LEFT SHIFT is Present. MCH (RBC) [Entitic mass] 31.5 pg 27.0-32.0 [facility] Nucleated RBC/100 WBC (Bld) [Ratio] 0 % 0-5 [facility] MCHC Auto (RBC) [Mass/Vol]Or dered By: Dr. Muñoz on 01-04-2023 MCHC (RBC) [Mass/Vol] 34.0 g/dL 32-36 [facility] No Panel InformationOrdered By: Dr. Muñoz on 01-04-2023 Estimated Creatinine Clearance Calc 59.94 ml/min [facility] Estimated GFR (MDRD) Amer 110 mL/min >60 [facility] Comment on above: GFR Calc Estimated GFR (MDRD) Non-Af Amer 91 mL/min >60 [facility] Comment on above: Non- GFR Calc 31.5 pg 27.0-32.0 [facility] 11.8 % 11.6-14.6 [facility] 40.1 fl 35.1-43.9 [facility] 0.400 % 0.0-0.9 [facility] 0 % 0-5 [facility] 91 mL/min >60 [facility] 110 mL/min >60 [facility] 59.94 ml/min [facility] 17.4 RATIO 10-20 [facility] 28.0 mmol/L 21.0-32.0 [facility] No Panel InformationOrdered By: Arthur Bull on 01-04-2023 Giardia Antigen (DONELL) [facility] Ova and parasitesOrdered By: Arthur Bull on 01-04-2023 Ova and parasites identified LM Nom (Unsp spec) [facility] Platelets bldOrdered By: Dr. Muñoz on 01-04-2023 Platelets (Bld) [#/Vol] 278 10*3/uL 150-450 [facility] Serum or plasma calcium lavelle urement (mass/volume)Ordered By: Dr. Muñoz on 01-04-2023 Calcium [Mass/Vol] 8.8 mg/dL 8.5-10.1 [facility] Serum or plasma creatinine m easurement (mass/volume)Ordered By: Dr. Muñoz on 01-04-2023 Creatinine [Mass/Vol] 0.69 mg/dL 0.55-1.02 [facility] Comment on above: The validity of the calculated GFR & GFRAA in patients over 70 years has not been determined. Clinical correlation is essential. Serum or plasma urea nitroge n measurement (mass/volume)Ordered By: Dr. Muñoz on 01-04-2023 Urea nitrogen [Mass/Vol] 12 mg/dL 7-18 [facility] Thin prep Papanicolaou smear with manual screeningOrdered By: Dr. Muñoz on 01-04-2023 Thin prep Papanicolaou smear with manual screening 7 5-15 [facility] Basophil percentageOrdered B y: Arthur Bull on 01-03-2023 Amylase [Catalytic activity/Vol] 33 U/L 25-115 [facility] Basophil percentage 33 U/L 25-115 [facility] Blood manual differential co mment interpretation (narrative result)Ordered By: Dr. Muñoz on 01-03-2023 Manual differential comment Rodrigo (Bld) [Interp] COMMENT [facility] Comment on above: LYMPHOCYTOSIS. Erythrocyte sedimentation ra teOrdered By: Arthur Bull on 01-03-2023 ESR (Bld) [Velocity] 24 mm/h 0-30 [facility] Laboratory - Chemistry and C hemistry - challengeOrdered By: Arthur Bull on 01-03-2023 Lipase [Catalytic activity/Vol] 141 U/L 73-393 [facility] No Panel InformationOrdered By: Arthur Bull on 01-03-2023 141 U/L 73-393 [facility] Serum or plasma C reactive p rotein measurement (mass/volume)Ordered By: Arthur Bull on 01-03-2023 CRP [Mass/Vol] mg/L 0.0-3.0 [facility] Comment on above: C-Reactive Protein ( CRP) provides useful information for thediagnosis, therapy and monitoring of inflammatory processesand associated diseases. For the evaluation of Relative Riskfor Cardiovascular Disease, a High Sensitivity CRP (HSCRP)should be ordered. No Panel InformationOrdered By: Arthur Bull on 01-02-2023 Immunoglobulin G4 32 mg/dL 2-96 [facility] 32 mg/dL 2-96 [facility] Serum IgG subclass 1 measure ment (mass/volume)Ordered By: Arthur Bull on 01-02-2023 IgG subclass 1 (S) [Mass/Vol] 732 mg/dL 248-810 [facility] Serum IgG subclass 2 measure ment (mass/volume)Ordered By: Arthur Bull on 01-02-2023 IgG subclass 2 (S) [Mass/Vol] 266 mg/dL 130-555 [facility] Serum IgG subclass 3 measure ment (mass/volume)Ordered By: Arthur Bull on 01-02-2023 IgG subclass 3 (S) [Mass/Vol] 13 mg/dL 15-102 [facility] Serum mitochondria antibody detectionOrdered By: Arthur Bull on 01-02-2023 Mitochondria Ab Ql (S) <20.0 Units 0.0-20.0 [facility] Comment on above: Negative 0.0 - 20.0 Equivocal 20.1 - 24.9 Positive >24.9Mitochondrial (M2) Antibodies are found in 90-96% ofpatients with primary biliary cirrhosis.Performed at: [email or web address] [place], [place] [id number] Director: Saad Hernandez PhD, Phone: [phone] Serum or plasma IgG measurem ent (mass/volume)Ordered By: Arthur Bull on 01-02-2023 IgG [Mass/Vol] 1144 mg/dL [id number] [facility] Serum or plasma actin IgG an tibody assay (units/volume)Ordered By: Arthur Bull on 01-02-2023 Actin IgG Qn 11 Units 0-19 [facility] Comment on above: Negative 0 - 19 Weak positive 20 - 30 Moderate to strong positive >30 Actin Antibodies are found in 52-85% of patients with autoimmune hepatitis or chronic active hepatitis and in 22% of patients with primary biliary cirrhosis.Performed at: [employer] [id number] [place], [place] [id number] Director: Saad Hernandez PhD, Phone: [phone] Serum or plasma [id number] protein tumor marker measurement (units/volume)Ordered By: Arthur Bull on 01-02-2023 AFP.tumor marker Qn 2.5 ng/mL 0.0-9.2 [facility] Comment on above: [facility] El ectrochemiluminescence Immunoassay(ECLIA)Values obtained with different assay methods or kits cannotbe used interchangeably. Results cannot be interpreted asabsolute evidence of the presence or absence of malignantdisease.This test is not interpretable in females.Performed at: [employer] [id number] Director: Saad Hernandez PhD, Phone: [phone] Serum or plasma carcinoembry onic antigen measurement (mass/volume)Ordered By: Arthur Bull on 01-02-2023 Carcinoembryonic Ag [Mass/Vol] 2.4 ng/mL 0.0-4.7 [facility] Comment on above: Nonsmokers <3.9 Smok ers <5.6[facility] Electrochemiluminescence Immunoassay(ECLIA)Values obtained with different assay methods or kitscannot be used interchangeably. Results cannot beinterpreted as absolute evidence of the presence orabsence of malignant disease. Basophil percentageOrdered B y: Dr. uMñoz on 01-01-2023 Basophil percentage 7.7 g/dL 6.4-8.2 [facility] Basophil percentage 0.60 mg/dL 0.20-1.00 [facility] Bilirubin [Mass/Vol] 0.60 mg/dL 0.20-1.00 [facility] Comment on above: For patients on eltr ombopag therapy, use of Dim[place] TBIL is not recommended. Protein [Mass/Vol] 7.7 g/dL 6.4-8.2 [facility] Laboratory - Chemistry and C hemistry - challengeOrdered By: Dr. Muñoz on 01-01-2023 ALP [Catalytic activity/Vol] 73 U/L 45-117 [facility] ALT [Catalytic activity/Vol] 93 U/L [facility] Globulin (S) [Mass/Vol] 3.9 g/dL 2.2-4.2 [facility] No Panel InformationOrdered By: Dr. Muñoz on 01-01-2023 3.9 g/dL 2.2-4.2 [facility] 73 U/L 45-117 [facility] 93 U/L [facility] Serum or plasma albumin lavelle urement (mass/volume)Ordered By: Dr. Muñoz on 01-01-2023 Albumin [Mass/Vol] 3.8 g/dL 3.2-5.0 [facility] Serum or plasma albumin/glob ulin mass ratioOrdered By: Dr. Muñoz on 01-01-2023 Albumin/Globulin [Mass ratio] 1.0 {ratio} 0.9-2.4 [facility] Thin prep Papanicolaou smear with manual screeningOrdered By: Dr. Muñoz on 01-01-2023 Thin prep Papanicolaou smear with manual screening 43 U/L 15-37 [facility] No Panel InformationOrdered By: Arthur Bull on 12-31-2022 Hepatitis A IgM Antibody Negative Negative [facility] Hepatitis B Core IgM Antibody Negative Negative [facility] Hepatitis C Antibody (EIA) Non-Reactive Non Reactive [facility] Hepatitis C Antibody Comment Comment . [facility] Comment on above: Not infected with HC V unless early or acute infection issuspected (which may be delayed in an immunocompromisedindividual), or other evidence exists to indicate HCVinfection.Performed at: [employer] [id number] Director: Saad Hernandez PhD, Phone: [phone] Negative Negative [facility] Non-Reactive Non Reactive [facility] Comment . [facility] Qualitative QuantiFERON-TB g old in tube testOrdered By: Arthur Bull on 12-31-2022 M. tuberculosis tuberculin stim IFN-g Ql (Bld) 0.07 IU/mL . [facility] Serum or plasma hepatitis B virus surface antigen detection by immunoassayOrdered By: Arthur Bull on 12-31-2022 HBV surface Ag IA Ql Negative Negative [facility] Thin prep Papanicolaou smear with manual screeningOrdered By: Arthur Bull on 12-31-2022 Thin prep Papanicolaou smear with manual screening Comment . [facility] Comment on above: QuantiFERON-TB Gold Plus is a qualitative indirect test forM tuberculosis infection (including disease) and isintended for use in conjunction with risk assessment,radiography, and other medical and diagnostic evaluations.The QuantiFERON-TB Gold Plus result is determined bysubtracting the Nil value from either TB antigen (Ag)value. The Mitogen tube serves as a control for the test. Thin prep Papanicolaou smear with manual screening 0.06 IU/mL . [facility] Thin prep Papanicolaou smear with manual screening 0.04 IU/mL . [facility] Thin prep Papanicolaou smear with manual screening > 10.00 IU/mL . [facility] Thin prep Papanicolaou smear with manual screening Negative Negative [facility] Comment on above: No response to M tub erculosis antigens detected.Infection with M tuberculosis is unlikely, but high riskindividuals should be considered for additional testing(ATS/IDSA/CDC Clinical Practice Guidelines, 2017). Thereference range is an Antigen minus Nil result of <0.35IU/mL.The specimen received for QuantiFERON testing was incubatedby the ordering institution. Specific procedures outlinedin our Directory of Services and in the package insert forthe QuantiFERON Gold (In Tube) test must be followed toenable for proper stimulation of cells for the productionof interferon gamma. Chemiluminescence immunoassaymethodology Basophil percentageOrdered B y: Dr. Weiner on 12-30-2022 Basophil percentage 1.0 mmol/L 0.4-2.0 [facility] Lactate [Moles/Vol] 1.0 mmol/L 0.4-2.0 [facility] Absolute lymphocyte countOrd ered By: Dr. Henry on 12-28-2022 Lymphocytes Auto (Unsp spec) [#/Vol] 3.05 10*3/uL 0.83-4.51 [facility] Basophil percentageOrdered B y: Dr. Henry on 12-28-2022 Basophil percentage 0-5 SEEN /hpf 0-5 [facility] Basophil percentage 131 mg/dL 74-106 [facility] Basophil percentage 138 mmol/L 136-145 [facility] Basophil percentage 4.1 mmol/L 3.5-5.1 [facility] Basophil percentage 106 mmol/L 98-107 [facility] Basophil percentage 1.2 mmol/L 0.4-2.0 [facility] Basophils (Bld) [#/Vol] 10.5 10*3/uL 4.4-11.0 [facility] Basophils (Bld) [#/Vol] 6.6 10*3/uL 2.0-7.7 [facility] Basophils/100 WBC (Bld) 0.4 % 0-1 [facility] Basophils/100 WBC (Bld) 62.6 % 47-70 [facility] Basophils/100 WBC (Bld) 2.5 % 0-5 [facility] Chloride [Moles/Vol] 106 mmol/L 98-107 [facility] Eosinophils/100 WBC (Bld) 2.5 % 0-5 [facility] Glucose [Mass/Vol] 131 mg/dL 74-106 [facility] Comment on above: Fasting Glucose resu lt greater than or equal to 126 mg/dL suggests DIABETES MELLITUS per A.D.A. criteria. Lactate [Moles/Vol] 1.2 mmol/L 0.4-2.0 [facility] Neutrophils (Bld) [#/Vol] 6.6 10*3/uL 2.0-7.7 [facility] Neutrophils/100 WBC (Bld) 62.6 % 47-70 [facility] Potassium [Moles/Vol] 4.1 mmol/L 3.5-5.1 [facility] Comment on above: Moderate Hemolysis, Result may be falsely increased. Sodium [Moles/Vol] 138 mmol/L 136-145 [facility] WBC (Bld) [#/Vol] 10.5 10*3/uL 4.4-11.0 [facility] Bilirubin Test strip Ql (U)O rdered By: Dr. Henry on 12-28-2022 Bilirubin Ql (U) Negative Negative [facility] Blood erythrocytes count (nu mber/volume)Ordered By: Dr. Henry on 12-28-2022 RBC (Bld) [#/Vol] 4.35 10*6/uL 4.2-5.4 [facility] Blood hemoglobin measurement (mass/volume)Ordered By: Dr. Henry on 12-28-2022 Hemoglobin (Bld) [Mass/Vol] 13.8 g/dL 12.0-15.0 [facility] Blood lymphocytes/100 leukoc ytesOrdered By: Dr. Henry on 12-28-2022 Lymphocytes/100 WBC (Bld) 29.1 % 19-41 [facility] Blood monocytes/100 leukocyt esOrdered By: Dr. Henry on 12-28-2022 Monocytes/100 WBC (Bld) 5.2 % 0-10 [facility] Blood platelet mean volumeOr dered By: Dr. Henry on 12-28-2022 Platelet mean volume (Bld) [Entitic vol] 9.9 fL 6.2-12.0 [facility] Determination of erythrocyte mean corpuscular volume (MCV)Ordered By: Dr. Henry on 12-28-2022 MCV (RBC) [Entitic vol] 91.3 fL 81-99 [facility] Hematocrit Auto (Bld) [Volum e fraction]Ordered By: Dr. Henry on 12-28-2022 Hematocrit (Bld) [Volume fraction] 39.7 % 37-47 [facility] Ketones Test strip Ql (U)Ord ered By: Dr. Henry on 12-28-2022 Ketones Ql (U) Negative Negative [facility] Laboratory - Chemistry and C hemistry - challengeOrdered By: Dr. Henry on 12-28-2022 CO2 [Moles/Vol] 24.0 mmol/L 21.0-32.0 [facility] Urea nitrogen/Creatinine [Mass ratio] 18.5 mg/mg 10-20 [facility] Laboratory - Hematology and Cell countsOrdered By: Dr. Henry on 12-28-2022 Erythrocyte distribution width (RBC) [Entitic vol] 39.6 fL 35.1-43.9 [facility] Erythrocyte distribution width (RBC) [Ratio] 11.8 % 11.6-14.6 [facility] Immature granulocytes/100 WBC (Bld) 0.200 % 0.0-0.9 [facility] Comment on above: IG% - Immature Granu locytes (promyelocytes, myelocytes and metamyelocytes) > 1% indicates that a LEFT SHIFT is Present. MCH (RBC) [Entitic mass] 31.7 pg 27.0-32.0 [facility] Nucleated RBC/100 WBC (Bld) [Ratio] 0 % 0-5 [facility] MCHC Auto (RBC) [Mass/Vol]Or dered By: Dr. Henry on 12-28-2022 MCHC (RBC) [Mass/Vol] 34.8 g/dL 32-36 [facility] Mucus LM Ql (Urine sed)Order ed By: Dr. Henry on 12-28-2022 Mucus Ql (Urine sed) 0 SEEN /hpf [facility] Nitrite Test strip Ql (U)Ord ered By: Dr. Henry on 12-28-2022 Nitrite Ql (U) Negative Negative [facility] No Panel InformationOrdered By: Dr. Henry on 12-28-2022 Estimated Creatinine Clearance Calc 59.09 ml/min [facility] Estimated GFR (MDRD) Amer 108 mL/min >60 [facility] Comment on above: GFR Calc Estimated GFR (MDRD) Non-Af Amer 89 mL/min >60 [facility] Comment on above: Non- GFR Calc 31.7 pg 27.0-32.0 [facility] 11.8 % 11.6-14.6 [facility] 39.6 fl 35.1-43.9 [facility] 0.200 % 0.0-0.9 [facility] 0 % 0-5 [facility] 89 mL/min >60 [facility] 108 mL/min >60 [facility] 59.09 ml/min [facility] 18.5 RATIO 10-20 [facility] 24.0 mmol/L 21.0-32.0 [facility] Platelets bldOrdered By: Dr. Henry on 12-28-2022 Platelets (Bld) [#/Vol] 282 10*3/uL 150-450 [facility] Protein Test strip Ql (U)Ord ered By: Dr. Henry on 12-28-2022 Protein Ql (U) Negative Negative [facility] Serum or plasma calcium lavelle urement (mass/volume)Ordered By: Dr. Henry on 12-28-2022 Calcium [Mass/Vol] 9.1 mg/dL 8.5-10.1 [facility] Serum or plasma creatinine m easurement (mass/volume)Ordered By: Dr. Henry on 12-28-2022 Creatinine [Mass/Vol] 0.70 mg/dL 0.55-1.02 [facility] Comment on above: The validity of the calculated GFR & GFRAA in patients over 70 years has not been determined. Clinical correlation is essential. Serum or plasma urea nitroge n measurement (mass/volume)Ordered By: Dr. Henry on 12-28-2022 Urea nitrogen [Mass/Vol] 13 mg/dL 7-18 [facility] Squamous epithelial cells de tection in urine sediment by light microscopyOrdered By: Dr. Henry on 12-28-2022 Epithelial cells.squamous LM Ql (Urine sed) 0 SEEN /hpf 5-10 [facility] Thin prep Papanicolaou smear with manual screeningOrdered By: Dr. Henry on 12-28-2022 Thin prep Papanicolaou smear with manual screening 8 5-15 [facility] Urine blood detectionOrdered By: Dr. Henry on 12-28-2022 RBC Ql (U) 50 /ul Negative [facility] RBC Ql (U) 0 SEEN /hpf 0-5 [facility] Urine clarityOrdered By: Dr. Henry on 12-28-2022 Clarity (U) Clear Clear [facility] Urine color determinationOrd ered By: Dr. Henry on 12-28-2022 Color (U) Yellow Yellow [facility] Urine glucose detectionOrder ed By: Dr. Henry on 12-28-2022 Glucose Ql (U) Normal mg/dl Normal [facility] Urine leukocyte esterase det ection by dipstickOrdered By: Dr. Henry on 12-28-2022 Leukocyte esterase Test strip Ql (U) Negative Negative [facility] Urine pHOrdered By: Dr. Juan perry on 12-28-2022 pH (U) 6.0 [pH] 5.0 - 8.0 [facility] Urine sediment bacteria coun t by microscopy (number/high power field)Ordered By: Dr. Henry on 12-28-2022 Bacteria LM.HPF (Urine sed) [#/Area] RARE /hpf None Seen [facility] Urine specific gravity measu rementOrdered By: Dr. Henry on 12-28-2022 Specific gravity (U) [Rel density] 1.015 1.002-1.03 0 [facility] Urobilinogen Auto test strip Ql (U)Ordered By: Dr. Henry on 12-28-2022 Urobilinogen Ql (U) Normal mg/dl Normal [facility] Absolute lymphocyte countOrd ered By: Arthurcarmen Bull on 12-27-2022 Lymphocytes Auto (Unsp spec) [#/Vol] 3.35 10*3/uL 0.83-4.51 [facility] Atypical perinuclear antineu trophil cytoplasmic antibodies measurementOrdered By: Arthurcarmen Bull on 12-27-2022 Neutrophil cytoplasmic Ab.perinuclear.atypical IF (S) [Titer] <1:20 titer Neg:<1:20 [facility] Comment on above: The atypical pANCA p attern has been observed in asignificant percentage of patients with ulcerative colitis,primary sclerosing cholangitis and autoimmune hepatitis.Performed at: - [facility] [id number] Director: Saad Hernandez PhD, Phone: [phone] at: - [facility] [id number] Director: Marcio Hennessy MD, Phone: [phone] Basophil percentageOrdered B y: Arthur Billy on 12-27-2022 Basophil percentage < 0.2 AI 0.0-0.9 [facility] Basophil percentage 140 mg/dL 74-106 [facility] Basophil percentage 7.9 g/dL 6.4-8.2 [facility] Basophil percentage 0.40 mg/dL 0.20-1.00 [facility] Basophil percentage 140 mmol/L 136-145 [facility] Basophil percentage 4.1 mmol/L 3.5-5.1 [facility] Basophil percentage 110 mmol/L 98-107 [facility] Basophil percentage 135 U/L 84-246 [facility] Basophils (Bld) [#/Vol] 12.0 10*3/uL 4.4-11.0 [facility] Basophils (Bld) [#/Vol] 7.7 10*3/uL 2.0-7.7 [facility] Basophils/100 WBC (Bld) 0.5 % 0-1 [facility] Basophils/100 WBC (Bld) 63.9 % 47-70 [facility] Basophils/100 WBC (Bld) 2.6 % 0-5 [facility] Bilirubin [Mass/Vol] 0.40 mg/dL 0.20-1.00 [facility] Comment on above: For patients on eltr ombopag therapy, use of Dimension [place] TBIL is not recommended. Chloride [Moles/Vol] 110 mmol/L 98-107 [facility] Eosinophils/100 WBC (Bld) 2.6 % 0-5 [facility] Glucose [Mass/Vol] 140 mg/dL 74-106 [facility] Comment on above: Fasting Glucose resu lt greater than or equal to 126 mg/dL suggests DIABETES MELLITUS per A.D.A. criteria. LDH [Catalytic activity/Vol] 135 U/L 84-246 [facility] Neutrophils (Bld) [#/Vol] 7.7 10*3/uL 2.0-7.7 [facility] Neutrophils/100 WBC (Bld) 63.9 % 47-70 [facility] Potassium [Moles/Vol] 4.1 mmol/L 3.5-5.1 [facility] Protein [Mass/Vol] 7.9 g/dL 6.4-8.2 [facility] Sodium [Moles/Vol] 140 mmol/L 136-145 [facility] WBC (Bld) [#/Vol] 12.0 10*3/uL 4.4-11.0 [facility] Blood erythrocytes count (nu mber/volume)Ordered By: Arthur Bull on 12-27-2022 RBC (Bld) [#/Vol] 4.52 10*6/uL 4.2-5.4 [facility] Blood hemoglobin measurement (mass/volume)Ordered By: Arthur Bull on 12-27-2022 Hemoglobin (Bld) [Mass/Vol] 14.2 g/dL 12.0-15.0 [facility] Blood lymphocytes/100 leukoc ytesOrdered By: Arthur Bull on 12-27-2022 Lymphocytes/100 WBC (Bld) 28.0 % 19-41 [facility] Blood monocytes/100 leukocyt esOrdered By: Arthur Bull on 12-27-2022 Monocytes/100 WBC (Bld) 4.6 % 0-10 [facility] Blood platelet mean volumeOr dered By: Arthur Bull on 12-27-2022 Platelet mean volume (Bld) [Entitic vol] 9.7 fL 6.2-12.0 [facility] Clostridium difficile detect ion by polymerase chain reactionOrdered By: Arthur Bull on 12-27-2022 C. difficile DNA ROBIN+probe Ql (Unsp spec) [facility] Determination of erythrocyte mean corpuscular volume (MCV)Ordered By: Arthur Bull on 12-27-2022 MCV (RBC) [Entitic vol] 94.2 fL 81-99 [facility] Erythrocyte sedimentation ra teOrdered By: Arthur Bull on 12-27-2022 ESR (Bld) [Velocity] 33 mm/h 0-30 [facility] Hematocrit Auto (Bld) [Volum e fraction]Ordered By: Arthur Bull on 12-27-2022 Hematocrit (Bld) [Volume fraction] 42.6 % 37-47 [facility] Interpretation of serum or p lasma protein pattern by immunofixation (narrative resultOrdered By: Arthur Bull on 12-27-2022 Protein Fractions Immunofixation Rodrigo [Interp] See comment [facility] Comment on above: Result: Not Observed Laboratory - Chemistry and C hemistry - challengeOrdered By: Arthur Bull on 12-27-2022 ALP [Catalytic activity/Vol] 80 U/L 45-117 [facility] ALT [Catalytic activity/Vol] 25 U/L 13-56 [facility] CO2 [Moles/Vol] 26.0 mmol/L 21.0-32.0 [facility] Globulin (S) [Mass/Vol] 4.0 g/dL 2.2-4.2 [facility] Urea nitrogen/Creatinine [Mass ratio] 15.5 mg/mg 10-20 [facility] Laboratory - Hematology and Cell countsOrdered By: Arthur Bull on 12-27-2022 Erythrocyte distribution width (RBC) [Entitic vol] 40.9 fL 35.1-43.9 [facility] Erythrocyte distribution width (RBC) [Ratio] 11.9 % 11.6-14.6 [facility] Immature granulocytes/100 WBC (Bld) 0.400 % 0.0-0.9 [facility] Comment on above: IG% - Immature Granu locytes (promyelocytes, myelocytes and metamyelocytes) > 1% indicates that a LEFT SHIFT is Present. MCH (RBC) [Entitic mass] 31.4 pg 27.0-32.0 [facility] Nucleated RBC/100 WBC (Bld) [Ratio] 0 % 0-5 [facility] MCHC Auto (RBC) [Mass/Vol]Or dered By: Arthur Bull on 12-27-2022 MCHC (RBC) [Mass/Vol] 33.3 g/dL 32-36 [facility] No Panel InformationOrdered By: Arthur Bull on 12-27-2022 Miscellaneous Test See comment [facility] Comment on above: TEST RESULT LIMITSSt ool Culture Salmonella/Shigella Screen Final report Result 1 No Salmonella or Shigella recovered. Campylobacter Culture Final report Result 1 No Campylobacter species isolated. E coli Shiga Toxin EIA Negative Negative TESTING PERFORMED AT [facility]. ORIGINAL REPORT ON FILE IN LAB CONTAINS ADDITIONAL TEST SITE INFORMATION. Stool Calprotectin 37 ug/g 0-120 [facility] Comment on above: Concentration Interp retation Follow-Up<16 - 50 ug/g Normal None>50 -120 ug/g Borderline Re-evaluate in 4-6 weeks >120 ug/g Abnormal Repeat as clinically indicatedPerformed at: [facility] [place] [place] [id number] Director: Marcio Hennessy MD, Phone: [phone] Stool Pancreatic Elastase 103 >200 [facility] Comment on above: Result Units: ug Tiffanie st./g Severe Pancreatic Insufficiency: <100 Moderate Pancreatic Insufficiency: 100 - 200 Normal: >200Performed at: [facility] [place] [place] [id number] Director: Marcio Hennessy MD, Phone: [phone] See comment [facility] 37 ug/g 0-120 [facility] 103 >200 [facility] Addendum Document Comment . [facility] Comment on above: Protein electrophore sis scan will follow via computer,mail, or flight test engineer delivery. Centromere B Antibody <0.2 AI 0.0-0.9 [facility] Endomysial IgA Antibody Negative Negative [facility] Estimated GFR (MDRD) Amer 88 mL/min >60 [facility] Comment on above: GFR Calc Estimated GFR (MDRD) Non-Af Amer 73 mL/min >60 [facility] Comment on above: Non- GFR Calc Immunoglobulin E 551 IU/mL 6-495 [facility] HEEL BOOM OPERATOR Antibody 0.5 AI 0.0-0.9 [facility] 31.4 pg 27.0-32.0 [facility] 11.9 % 11.6-14.6 [facility] 40.9 fl 35.1-43.9 [facility] 0.400 % 0.0-0.9 [facility] 0 % 0-5 [facility] 73 mL/min >60 [facility] 88 mL/min >60 [facility] 15.5 RATIO 10-20 [facility] 80 U/L 45-117 [facility] 25 U/L 13-56 [facility] 26.0 mmol/L 21.0-32.0 [facility] 551 IU/mL 6-495 [facility] 0.5 AI 0.0-0.9 [facility] Negative Negative [facility] <0.2 AI 0.0-0.9 [facility] Platelets bldOrdered By: Steve bautista Friend on 12-27-2022 Platelets (Bld) [#/Vol] 292 10*3/uL 150-450 [facility] Serum DNA double strand anti body assay (units/volume)Ordered By: Arthur Friend on 12-27-2022 DNA double strand Ab Qn (S) [IU]/mL 0-9 [facility] Comment on above: Negative <5 Equivoca l 5 - 9 Positive >9 Serum Ruby-1 antibody assay (u nits/volume)Ordered By: Arthur Bull on 12-27-2022 Ruby-1 extractable nuclear Ab Qn (S) <0.2 AI 0.0-0.9 [facility] Serum Scl-70 extractable nuc lear antibody assay (units/volume)Ordered By: Arthur Bull on 12-27-2022 SCL-70 extractable nuclear Ab Qn (S) 0.7 AI 0.0-0.9 [facility] Serum Garcia extractable nucl ear antibody detectionOrdered By: Arthur Bull on 12-27-2022 Garcia extractable nuclear Ab Ql (S) <0.2 AI 0.0-0.9 [facility] Serum [id number] measu rement by electrophoresisOrdered By: Arthur Bull on 12-27-2022 Alpha 1 globulin Elph [Mass/Vol] 0.2 g/dL 0.0-0.4 [facility] Alpha 1 globulin Elph [Mass/Vol] 1.0 g/dL 0.4-1.0 [facility] Serum classic neutrophil cyt oplasmic antibody assay (units/volume)Ordered By: Arthur Bull on 12-27-2022 Neutrophil cytoplasmic Ab.classic Qn (S) <1:20 titer Neg:<1:20 [facility] Serum globulin measurement ( mass/volume)Ordered By: Arthur Bull on 12-27-2022 Globulin (S) [Mass/Vol] 3.4 g/dL 2.2-3.9 [facility] Serum or plasma C reactive p rotein measurement (mass/volume)Ordered By: Arthur Bull on 12-27-2022 CRP [Mass/Vol] 3.50 mg/L 0.0-3.0 [facility] Comment on above: C-Reactive Protein ( CRP) provides useful information for thediagnosis, therapy and monitoring of inflammatory processesand associated diseases. For the evaluation of Relative Riskfor Cardiovascular Disease, a High Sensitivity CRP (HSCRP)should be ordered. Serum or plasma IgA measurem ent (mass/volume)Ordered By: Arthur Bull on 12-27-2022 IgA [Mass/Vol] 257 mg/dL 87-352 [facility] Serum or plasma IgG measurem ent (mass/volume)Ordered By: Arthur Bull on 12-27-2022 IgG [Mass/Vol] 1296 mg/dL 586-1602 [facility] Serum or plasma IgM measurem ent (mass/volume)Ordered By: Arthur Bull on 12-27-2022 IgM [Mass/Vol] 34 mg/dL 26-217 [facility] Serum or plasma albumin lavelle urement (mass/volume)Ordered By: Arthur Bull on 12-27-2022 Albumin [Mass/Vol] 3.9 g/dL 2.9-4.4 [facility] Serum or plasma albumin/glob ulin mass ratioOrdered By: Arthur Bull on 12-27-2022 Albumin/Globulin [Mass ratio] 1.0 {ratio} 0.9-2.4 [facility] Serum or plasma beta globuli n measurement by electrophoresis (mass/volume)Ordered By: Arthur Bull on 12-27-2022 Beta globulin Elph [Mass/Vol] 1.1 g/dL 0.7-1.3 [facility] Serum or plasma calcium lavelle urement (mass/volume)Ordered By: Arthur Bull on 12-27-2022 Calcium [Mass/Vol] 9.1 mg/dL 8.5-10.1 [facility] Serum or plasma creatinine m easurement (mass/volume)Ordered By: Arthur Bull on 12-27-2022 Creatinine [Mass/Vol] 0.84 mg/dL 0.55-1.02 [facility] Comment on above: The validity of the calculated GFR & GFRAA in patients over 70 years has not been determined. Clinical correlation is essential. Serum or plasma gamma globul in measurement by electrophoresis (mass/volume)Ordered By: Arthur Bull on 12-27-2022 Gamma globulin Elph [Mass/Vol] 1.2 g/dL 0.4-1.8 [facility] Serum or plasma immunoelectr ophoresis interpretation (nominal result)Ordered By: Arthur Bull on 12-27-2022 Interpretation IEP [Interp] Comment . [facility] Comment on above: No monoclonality det ected. Serum or plasma urea nitroge n measurement (mass/volume)Ordered By: Arthur Bull on 12-27-2022 Urea nitrogen [Mass/Vol] 13 mg/dL 7-18 [facility] Serum perinuclear neutrophil cytoplasmic antibody titer by immunofluorescenceOrdered By: Arthur Bull on 12-27-2022 Neutrophil cytoplasmic Ab.perinuclear IF (S) [Titer] <1:20 titer Neg:<1:20 [facility] Comment on above: The presence of posi tive fluorescence exhibiting P-ANCA orC-ANCA patterns alone is not specific for the diagnosis ofWegener's Granulomatosis (WG) or microscopic polyangiitis.Decisions about treatment should not be based solely onANCA IFA results. The [employer] ANCA Group Consensusrecommends follow up testing of positive sera with both IN-3 and MPO-ANCA enzyme immunoassays. As many as 5% serumsamples are positive only by EIA. Ref. AM J Clin Xuizpk8902;111:507-513. Serum tissue transglutaminas e IgA antibody assay (units/volume)Ordered By: Arthur Bull on 12-27-2022 tTG IgA Qn (S) <2 U/mL 0-3 [facility] Comment on above: Negative 0 - 3 Weak Positive 4 - 10 Positive >10 Tissue Transglutaminase (tTG) has been identified as the endomysial antigen. Studies have demonstr- ated that endomysial IgA antibodies have over 99% specificity for gluten sensitive enteropathy. Stool Clostridium difficile detectionOrdered By: Arthur Bull on 12-27-2022 C. difficile Ql (Stl) [facility] Stool lactoferrin detection by immunoassayOrdered By: Arthur Bull on 12-27-2022 Lactoferrin IA Ql (Stl) [facility] Thin prep Papanicolaou smear with manual screeningOrdered By: Arthur Bull on 12-27-2022 Thin prep Papanicolaou smear with manual screening 14 U/L 15-37 [facility] Thin prep Papanicolaou smear with manual screening 4 5-15 [facility] Thin prep Papanicolaou smear with manual screening 1.2 0.7-1.7 [facility] Total protein bloodOrdered B y: Arthur Bull on 12-27-2022 Protein [Mass/Vol] 7.3 g/dL 6.0-8.5 [facility] CBC W Auto Differential pane l (Bld)on 11-04-2022 Basophils (Bld) [#/Vol] 0.05 10*3/uL <0.11 k/uL [facility] Basophils/100 WBC (Bld) 0.4 % [facility] Differential cell count method Nom (Bld) Auto [facility] Eosinophils (Bld) [#/Vol] 0.31 10*3/uL <0.46 k/ uL [facility] Eosinophils/100 WBC (Bld) 2.4 % [facility] Erythrocyte distribution width (RBC) [Ratio] 11.9 % 11.5 - 15.0 % [facility] Hematocrit (Bld) [Volume fraction] 44.9 % 36.0 - 46.0 % [facility] Hemoglobin (Bld) [Mass/Vol] 14.9 g/dL 11.5 - 15.5 g/dL [facility] Immature granulocytes (Bld) [#/Vol] 0.05 10*3/uL <0.10 k/uL [facility] Immature granulocytes/100 WBC (Bld) 0.4 % [facility] Lymphocytes (Bld) [#/Vol] 4.33 10*3/uL High 1. 00 - 4.00 k/uL [facility] Lymphocytes/100 WBC (Bld) 32.9 % [facility] MCH (RBC) [Entitic mass] 31.3 pg 26. 0 - 34.0 pg [facility] MCHC (RBC) [Mass/Vol] 33.2 g/dL 30.5 - 36.0 g/dL [facility] MCV (RBC) [Entitic vol] 94.3 fL 80.0 - 100.0 fL [facility] Monocytes (Bld) [#/Vol] 0.73 10*3/uL <0.87 k/uL [facility] Monocytes/100 WBC (Bld) 5.5 % [facility] Neutrophils (Bld) [#/Vol] 7.71 10*3/uL High 1. 45 - 7.50 k/uL [facility] Neutrophils/100 WBC (Bld) 58.4 % [facility] Nucleated RBC (Bld) [#/Vol] <0.01 k/uL [facility] Nucleated RBC/100 WBC (Bld) [Ratio] 0.0 /100 WBC [facility] Platelet mean volume (Bld) [Entitic vol] 9.7 fL 9.0 - 12.7 fL [facility] Platelets (Bld) [#/Vol] 321 10*3/uL 150 - 400 k/uL [facility] RBC (Bld) [#/Vol] 4.76 10*6/uL 3.90 - 5.20 m/uL [facility] WBC (Bld) [#/Vol] 13.18 10*3/uL High 3.70 - 11.00 k/uL [facility] XR ABDOMEN 1V SUPINEon 06-17 [facility] UA DIP, URINE (POC)on 2021 BILIRUBIN UA (POCT) Negative Negative Jese [facility] CLARITY [facility]POCT) [facility] COLOR UA (POCT) Yellow [facility] GLUCOSE UA (POCT) Negative Negative mg/dL [facility] HEMOGLOBIN/BLOOD UA (POCT) Moderate Abnormal Negative [facility] KETONE UA (POCT) Negative Negative mg/dL [facility] LEUKOCYTES UA (POCT) Negative Negative [facility] NITRITE UA (POCT) Negative Negative [facility] PH UA (POCT) 5.5 4.5 - 8.0 [facility] Protein Ql (U) Negative Negative mg/dL [facility] SPECIFIC GRAVITY UA (POCT) 1.020 1.005 - 1.030 [facility] UROBILINOGEN UA (POCT) 0.2 E.U./dL Milagros l E.U./dL [facility] CT ABD/PEL W IVCONon 022 [facility] UA DIP, URINE (POC)on 2021 BILIRUBIN UA (POCT) Negative Negative [facility] CLARITY UA (POCT) S[facility] COLOR UA (POCT) Other [facility] GLUCOSE UA (POCT) Negative Negative mg/dL [facility] HEMOGLOBIN/BLOOD UA (POCT) Moderate Abnormal Negative [facility] KETONE UA (POCT) Negative Negative mg/dL [facility] LEUKOCYTES UA (POCT) Trace Abnormal Negative [facility] NITRITE UA (POCT) Negative Negative [facility] PH UA (POCT) 5.5 4.5 - 8.0 [facility] Protein Ql (U) Negative Negative mg/dL [facility] SPECIFIC GRAVITY UA (POCT) 1.020 1.005 - 1.030 [facility] UROBILINOGEN UA (POCT) 0.2 E.U./dL Milagros l E.U./dL [facility] NM GASTRIC EMPTYING SOLIDon 04-03-2022 [facility] CBC W Auto Differential pane l (Bld)on 03-06-2022 Abs Immature Gran 0.03 k/uL <0.10 k/uL [facility] Basophils (Bld) [#/Vol] 0.05 10*3/uL <0.11 k/uL [facility] Basophils/100 WBC (Bld) 0.4 % [facility] Differential cell count method Nom (Bld) Auto [facility] Eosinophils (Bld) [#/Vol] 0.24 10*3/uL <0.46 k/ uL [facility] Eosinophils/100 WBC (Bld) 2.0 % [facility] Erythrocyte distribution width (RBC) [Ratio] 11.9 % 11.5 - 15.0 % [facility] Hematocrit (Bld) [Volume fraction] 41.9 % 36.0 - 46.0 % [facility] Hemoglobin (Bld) [Mass/Vol] 13.9 g/dL 11.5 - 15.5 g/dL [facility] Immature Gran % 0.3 % [facility] Lymphocytes (Bld) [#/Vol] 4.68 10*3/uL High 1. 00 - 4.00 k/uL [facility] Lymphocytes/100 WBC (Bld) 39.1 % [facility] MCH (RBC) [Entitic mass] 30.9 pg 26. 0 - 34.0 pg [facility] MCHC (RBC) [Mass/Vol] 33.2 g/dL 30.5 - 36.0 g/dL [facility] MCV (RBC) [Entitic vol] 93.1 fL 80.0 - 100.0 fL [facility] Monocytes (Bld) [#/Vol] 0.68 10*3/uL <0.87 k/uL [facility] Monocytes/100 WBC (Bld) 5.7 % [facility] Neutrophils (Bld) [#/Vol] 6.29 10*3/uL 1. 45 - 7.50 k/uL [facility] Neutrophils/100 WBC (Bld) 52.5 % [facility] Nucleated RBC (Bld) [#/Vol] 10*3/uL <0.01 k/uL [facility] Nucleated RBC/100 WBC (Bld) [Ratio] 0.0 /100 WBC [facility] Platelet mean volume (Bld) [Entitic vol] 9.7 fL 9.0 - 12.7 fL [facility] Platelets (Bld) [#/Vol] 302 10*3/uL 150 - 400 k/uL [facility] RBC (Bld) [#/Vol] 4.50 10*6/uL 3.90 - 5.20 m/uL [facility] WBC (Bld) [#/Vol] 11.97 10*3/uL High 3.70 - 11.00 k/uL [facility] US BREAST LTD LTon [facility] RADHA SCREENINGon 01-22-2022 [facility] No Panel Informationon 08-25 IMPRESSION: No acute osseous abnormality. No marginal erosions. Other findings, as described. In Store Banker: PSCB Transcribe Date/Time: Aug 25 2020 1:32P Dictated by : DEBRA CARRERO MD This examination was interpreted and the report reviewed and electronically signed by: DEBRA CARRERO MD on Aug 25 2020 1:34PM [facility] DIVISION OF RADIOLOGY Radiology Study observation (narrative) [facility] No Panel InformationOrdered By: Ccf Provider on 08-25-2020 [facility] XR Ankle - right AP and Late ral and obliqueon 08-25-2020 * * *Final Report* * * DATE OF EXAM: Aug 25 2020 9:59AM WOX 5297 - XR ANKLE 3V AP/LAT/OBL RT / PROCEDURE REASON: Acute right ankle pain * * * * Physician Interpretation * * * * EXAMINATION / TECHNIQUE: XR FOOT 3V AP/LAT/OBL RT, XR ANKLE 3V AP/LAT/OBL RT HISTORY: right ankles and feet swelling and painful. HX RA Arthralgia, unspecified joint COMPARISON: RESULT: No acute fracture or dislocation. No erosions. Borderline pes calcaneus. Small posterior and plantar calcaneal enthesophytes. Joint spaces are relatively maintained. Very small first metatarsal bunion. Ankle mortise is intact. Small osteophytes at the medial ankle joint. DIVISION OF RADIOLOGY Provider, [facility] Nacho keith [place] - 08/25/2020 * * *Final Report* * * DATE OF EXAM: Aug 25 2020 9:59AM WOX 5297 - XR ANKLE 3V AP/LAT/OBL RT / PROCEDURE REASON: Acute right ankle pain * * * * Physician Interpretation * * * * EXAMINATION / TECHNIQUE: XR FOOT 3V AP/LAT/OBL RT, XR ANKLE 3V AP/LAT/OBL RT HISTORY: right ankles and feet swelling and painful. HX RA Arthralgia, unspecified joint COMPARISON: RESULT: No acute fracture or dislocation. No erosions. Borderline pes calcaneus. Small posterior and plantar calcaneal enthesophytes. Joint spaces are relatively maintained. Very small first metatarsal bunion. Ankle mortise is intact. Small osteophytes at the medial ankle joint. IMPRESSION IMPRESSION: No acute osseous abnormality. No marginal erosions. Other findings, as described. In Store Banker: SwiftoTheresa Transcribe Date/Time: Aug 25 2020 1:32P Dictated by : DEBRA CARRERO MD This examination was interpreted and the report reviewed and electronically signed by: DEBRA CARRERO MD on Aug 25 2020 1:34PM EST [facility] XR Foot - right AP and Later al and obliqueon 08-25-2020 * * *Final Report* * * DATE OF EXAM: Aug 25 2020 9:59AM WOX 5337 - XR FOOT 3V AP/LAT/OBL RT / PROCEDURE REASON: Arthralgia, unspecified joint * * * * Physician Interpretation * * * * EXAMINATION / TECHNIQUE: XR FOOT 3V AP/LAT/OBL RT, XR ANKLE 3V AP/LAT/OBL RT HISTORY: right ankles and feet swelling and painful. HX RA Arthralgia, unspecified joint COMPARISON: RESULT: No acute fracture or dislocation. No erosions. Borderline pes calcaneus. Small posterior and plantar calcaneal enthesophytes. Joint spaces are relatively maintained. Very small first metatarsal bunion. Ankle mortise is intact. Small osteophytes at the medial ankle joint. DIVISION OF RADIOLOGY Provider, [facility] Nacho [facility] - 08/25/2020 * * *Final Report* * * DATE OF EXAM: Aug 25 2020 9:59AM WOX 5337 - XR FOOT 3V AP/LAT/OBL RT / PROCEDURE REASON: Arthralgia, unspecified joint * * * * Physician Interpretation * * * * EXAMINATION / TECHNIQUE: XR FOOT 3V AP/LAT/OBL RT, XR ANKLE 3V AP/LAT/OBL RT HISTORY: right ankles and feet swelling and painful. HX RA Arthralgia, unspecified joint COMPARISON: RESULT: No acute fracture or dislocation. No erosions. Borderline pes calcaneus. Small posterior and plantar calcaneal enthesophytes. Joint spaces are relatively maintained. Very small first metatarsal bunion. Ankle mortise is intact. Small osteophytes at the medial ankle joint. IMPRESSION IMPRESSION: No acute osseous abnormality. No marginal erosions. Other findings, as described. In Store Banker: PSCB Transcribe Date/Time: Aug 25 2020 1:32P Dictated by : DEBRA CARRERO MD This examination was interpreted and the report reviewed and electronically signed by: DEBRA CARRERO MD on Aug 25 2020 1:34PM [facility] MRI SHOULDER WO IVCON LTon 0 06-20-2020 MRI SHOULDER WO IVCON LT * * *Final Repo rt* * * DATE OF EXAM: Jun 20 2020 8:02AM [facility] 0239 - MRI SHOULDER WO IVCON LT / PROCEDURE REASON: multiple diagnoses * * * * Physician Interpretation * * * * HISTORY: . Abnormal findings on diagnostic imaging of limbs Left shoulder pain, unspecified chronicity . patient unable to extend arm out to reach or grab items NO INJURY TECHNIQUE: Routine MRI of the shoulder, right side; COMPARISON: None RESULT: No abnormal shoulder joint effusion. Low-level signal involving the anterolateral aspect of the supraspinatus tendon due to tendinosis. The supraspinatus tendon, infraspinatus tendon, and teres minor tendons are intact. Subscapularis tendon is normal. Lung had of the biceps tendon is intact and is appropriately located. Fluid in the subacromial subdeltoid bursa. Mild arthritic expansion of the acromioclavicular joint which contacts the superior surface of the supraspinous musculotendinous junction (series 6 image 12). There is type II morphology of the acromion. Type I SLAP tear of the biceps labral complex (series 4 images 12 and 13). There is fraying of the posterior glenoid labrum (series 7 images 12 through 15). Anterior glenoid labrum and inferior labrum appear to be intact. No evidence of bone fracture or contusion. No soft tissue mass or collection. IMPRESSION: TENDINOSIS OF SUPRASPINATUS TENDON. NO EVIDENCE OF A FULL-THICKNESS ROTATOR CUFF TEAR OR CUFF RETRACTION. FRAYING OF THE BICEPS LABRAL COMPLEX AND POSTERIOR GLENOID LABRUM. MILD ARTHRITIC EXPANSION OF THE ACROMIOCLAVICULAR JOINT WHICH CONTACTS THE SUPERIOR ASPECT OF THE SUPRASPINATUS MUSCULOTENDINOUS JUNCTION. THERE IS TYPE II MORPHOLOGY OF THE ACROMION. SUBACROMIAL SUBDELTOID BURSITIS. NO EVIDENCE OF BONE FRACTURE OR CONTUSION. In Store Banker: PSCB Transcribe Date/Time: Jun 20 2020 1:11P Dictated by : RANDY ARAMBULA MD This examination was interpreted and the report reviewed and electronically signed by: RANDY ARAMBULA MD on Jun 20 2020 1:16PM EST [id number] [facility] 06-20-2020 PROGRESS HNO ID: [id number] Author: Stuart Acevedo (Tech) Service: Radiology Author Type: Transitional Care Liaison Type: Progress Notes Filed: 06/20/2020 7:40 AM Note Text: Radiology Service Progress Note PATIENT NAME: Isaac Rahman DATE OF SERVICE: June 20, 2020 TIME: 7:39 AM PATIENT IDENTITY VERIFICATION COMPLETED USING TWO (2) IDENTIFIERS: Name and Date of confirmed by patient verbally and Name and Date of confirmed by identification band. FALL SCREENING: Has the patient had 2 falls in the last year or 1 fall with injury or currently using an Ambulatory Assistive Device (Walker, Cane, Wheelchair, Crutches, etc.)? No PATIENT GENDER DATA: Female. status: : No status: NO. PATIENT RELEVANT IMPLANT DATA REVIEWED: Yes RADIOLOGY DEPARTMENT: MR; Exam(s) Completed: Upper MSK: Shoulder, left PERIPHERAL IV DATA: Not applicable SIGNED BY: IVANNA Acevedo June 20, 2020 7:39 AM [facility] 06-02-2020 PROGRESS HNO ID: [id number] Author: YUDI Orellana (Ct) Service: Radiology Author Type: Clinical Transitional Care Liaison Type: Progress Notes Filed: 06/02/2020 10:20 AM Note Text: Radiology Service Progress Note PATIENT NAME: Isaac Rahman DATE OF SERVICE: June 02, 2020 TIME: 10:20 AM PATIENT IDENTITY VERIFICATION COMPLETED USING TWO (2) IDENTIFIERS: Name and Date of confirmed by patient verbally. FALL SCREENING: Has the patient had 2 falls in the last year or 1 fall with injury or currently using an Ambulatory Assistive Device (Walker, Cane, Wheelchair, Crutches, etc.)? Inpatient: Screened on floor PATIENT GENDER DATA: Female. status: : No status: NO. PATIENT RELEVANT IMPLANT DATA REVIEWED: Not Applicable RADIOLOGY DEPARTMENT: General X-ray: Exam(s) Completed: Spine X-Ray(s): Cervical AP / LAT / OBL PERIPHERAL IV DATA: Not applicable SIGNED BY: YUDI Orellana June 02, 2020 10:20 AM [facility] XR CERVICAL 4V AP/LAT/OBLon 06-02-2020 XR CERVICAL 4V AP/LAT/OBL * * *Final Rep ort* * * DATE OF EXAM: Jun 02 2020 9:58AM [facility] - XR CERVICAL 4V AP/LAT/OBL / PROCEDURE REASON: M50.30-DDD (degenerative disc disease), cervical * * * * Physician Interpretation * * * * Cervical spine: HISTORY: Indication: DDD (degenerative disc disease), cervical PAIN IN LEFT SHOULER/ARM FOR PAST 2 YEARS, GETTING WORSE. PAIN IN LEFT SHOULER/ARM FOR PAST 2 YEARS, GETTING WORSE. TECHNIQUE: Views obtained: XR CERVICAL 4V AP/LAT/OBL Comparison: None. RESULT: Findings: Disk spaces: Moderate disc space narrowing C5-6 C6-7 C7-T1. There are marked degenerative changes of the facet joints C7 Spine alignment: The vertebra are in good alignment. No fractures or dislocations are seen. IMPRESSION: Degenerative changes as discussed In Store Banker: PSCB Transcribe Date/Time: Jun 02 2020 3:08P Dictated by : INGRIS GUTHRIE DO This examination was interpreted and the report reviewed and electronically signed by: INGRIS GUTHRIE DO on Jun 02 2020 3:09PM EST [id number] [facility] XR SHLDR >/=3V AP/KELSEY AP/OTH R LTon 05-26-2020 XR SHLDR >/=3V AP/KELSEY AP/OTHR LT Final Report DATE OF EXAM: May 26 2020 12:00AM [facility] 5252 - XR SHLDR >/=3V AP/KELSEY AP/OTHR LT / PROCEDURE REASON: Limited movement, shoulder Physician Interpretation EXAM: XR SHLDR >/=3V AP/KELSEY AP/OTHR LT HISTORY: Limited movement, shoulder COMPARISON: None available FINDINGS: Significantly limited evaluation due to positioning and overlapping structures. No overt dislocation or obvious fracture. IMPRESSION: Limited shoulder evaluation without overt dislocation. Recommend repeat shoulder radiographs when feasible. In Store Banker: PSCB Transcribe Date/Time: May 26 2020 12:04A Dictated by : BERTO HIGGINS MD This examination was interpreted and the report reviewed and electronically signed by: BERTO HIGGINS MD on May 26 2020 12:07AM [facility] PROGRESSon 05-04-2020 PROGRESS HNO ID: [id number] Author: Krissy Rosenbaum) YUDI Lara Service: ? Author Type: Clinical Transitional Care Liaison Type: Progress Notes Filed: 05/04/2020 10:04 AM Note Text: Radiology Service Progress Note PATIENT NAME: Isaac Rahman DATE OF SERVICE: May 04, 2020 TIME: 10:04 AM PATIENT IDENTITY VERIFICATION COMPLETED USING TWO (2) IDENTIFIERS: Name and Date of confirmed by patient verbally. FALL SCREENING: Has the patient had 2 falls in the last year or 1 fall with injury or currently using an Ambulatory Assistive Device (Walker, Cane, Wheelchair, Crutches, etc.)? No PATIENT GENDER DATA: Female. status: : No status: NO. PATIENT RELEVANT IMPLANT DATA REVIEWED: Not Applicable RADIOLOGY DEPARTMENT: General X-ray: Exam(s) Completed: Lower Extremity X-Ray(s): Knee, AP / Lat / Merchant Right and Wt. Bearing: PERIPHERAL IV DATA: Not applicable SIGNED BY: YUDI GARVIN May 04, 2020 10:04 AM [facility] XR KNEE 3V AP/LAT/MERCHANT R Ton 05-04-2020 XR KNEE 3V AP/LAT/MERCHANT RT * * *Final Report* * * DATE OF EXAM: May 04 2020 10:02AM [facility]209 - XR KNEE 3V AP/LAT/MERCHANT RT / PROCEDURE REASON: M25.561-Right knee pain, unspecified chronicity * * * * Physician Interpretation * * * * RIGHT knee EXAM DATE/TIME: 05/04/2020 10:02 AM HISTORY: 59 years old Clinical information: Right knee pain, unspecified chronicity RIGHT KNEE PAIN AP bilateral wt bearing TECHNIQUE: Images: XR KNEE 3V AP/LAT/MERCHANT RT Comparison: None. RESULT: Findings: Right :No fractures or dislocations are seen. Moderate narrowing of the medial compartment. Mild spurring posterior patella Left :No fractures or dislocations are seen. Severe narrowing of the medial compartment. IMPRESSION: Degenerative changes as discussed In Store Banker: KIRSTEN Transcribe Date/Time: May 04 2020 4:13P Dictated by : INGRIS GUTHRIE DO This examination was interpreted and the report reviewed and electronically signed by: INGRIS GUTHRIE DO on May 04 2020 4:14PM EST [id number] [facility] CT ABD/PEL W IVCONon [address] ABD/PEL W IVCON * * *Final Report* * * DATE OF EXAM: Mar 09 2020 9:56AM [facility] 0530 - CT ABD/PEL W IVCON / PROCEDURE REASON: Crohn's exacerbation * * * * Physician Interpretation * * * * EXAM TITLE:CT ABD/PEL W IVCON DATE:03/09/2020 COMPARISON: 04/26/2017, 06/04/2016 CLINICAL INDICATION/HISTORY: Abdominal pain. Crohn's exacerbation. TECHNIQUE: CT examination of the abdomen and pelvis performed with IV contrast. Sagittal and coronal reconstruction images were generated. CT Radiation dose: Integrated Dose-length product (DLP) for this visit = 643.54 mGy*cm. CT Dose Reduction Employed: Automated exposure control (AEC) IV contrast: 150 mL of Visipaque 270 FINDINGS: ABDOMINAL FINDINGS: The visualized lung bases are clear. No focal hepatic abnormality is detected. Gallbladder is absent and there is stable intrahepatic and extrahepatic bile duct dilatation. The spleen and pancreas are normal as are the adrenal glands and kidneys. As demonstrated previously, there is wall thickening involving the terminal ileum, similar to previous studies. There is no significant surrounding fat stranding. The remainder of the small bowel grossly appears normal. There is colonic diverticulosis without findings of diverticulitis. The appendix is normal. The abdominal vasculature is patent. There is no lymphadenopathy, free fluid or omental nodule. Degenerative changes throughout the lumbar spine without acute bony abnormality. PELVIC FINDINGS: The uterus is absent. No lymphadenopathy, free fluid or adnexal mass. The bladder grossly appears normal. IMPRESSION: No acute abnormality. No change from the prior studies. In Store Banker: PSCB Transcribe Date/Time: Mar 09 2020 10:09A Dictated by : DEWAYNE GARRETT MD This examination was interpreted and the report reviewed and electronically signed by: DEWAYNE GARRETT MD on Mar 09 2020 10:20AM EST Normal [facility] Comprehensive Panelon 2019 Albumin [Mass/Vol] 4.5 g/dL Normal 3.9-4.9 [facility] Comment on above: Performed By: #### L LP14 #### [place] [address] ALP [Catalytic activity/Vol] 69 U/L Normal 34-123 [facility] Comment on above: Performed By: #### L LP14 #### [place] [address] ALT-SGPT Blood 19 U/L Normal 7-38 [facility] Comment on above: Performed By: #### L LP14 #### [place] [address] Anion gap [Moles/Vol] 13 mmol/L Normal 9-18 [facility] Comment on above: Performed By: #### L LP14 #### [place] [address] AST-SGOT Blood 15 U/L Normal 13-35 [facility] Comment on above: Performed By: #### L LP14 #### [facility] [address] [place] [address] Bilirubin Ql (U) 0.2 mg/dL Normal 0.2-1.3 [facility] Comment on above: Performed By: #### L LP14 #### [place] [address] Calcium [Mass/Vol] 9.5 mg/dL Normal 8.5-10.2 [facility] Comment on above: Performed By: #### L LP14 #### [facility] [address] [place], [place] [address] Chloride [Moles/Vol] 102 mmol/L Normal 97-105 [facility] Comment on above: Performed By: #### L LP14 #### [facility] [address] [place], [place] [address] CO2 Blood 23 mmol/L Normal 22-30 [facility] Comment on above: Performed By: #### L LP14 #### [facility] [address] [place], [place] [address] Creatinine [Mass/Vol] 0.54 mg/dL Low 0.58-0.96 [facility] Comment on above: Performed By: #### L LP14 #### [facility] [address] [place], [place] [address] Glucose [Mass/Vol] 134 mg/dL High 74-99 [facility] Comment on above: Result Comment: The [place] [employer] (ADA) provides guidance for cutoff values for fasting glucose and random glucose. The ADA defines fasting as no caloric intake for at least 8 hours.Fasting plasma glucose results between 100 to 125 mg/dL indicate increased risk for diabetes (prediabetes). Fasting plasma glucose results greater than or equal to 126 mg/dL meet the criteria for diagnosis of diabetes. In the absence of unequivocal hyperglycemia, results should be confirmed by repeat testing. In a patient with classic symptoms of hyperglycemia or hyperglycemic crisis, random plasma glucose results greater than or equal to 200 mg/dL meet the criteria for diagnosis of diabetes. Reference: Standards of Medical Care in Diabetes 2016; [place] [employer]. Diabetes Care. 2016;39(Suppl 1). Performed By: #### L LP14 #### [facility] [address] [place], [place] [address] Potassium [Moles/Vol] 4.2 mmol/L Normal 3.7-5.1 [facility] Comment on above: Performed By: #### L LP14 #### [facility] [address] [place], [place] [address] Protein [Mass/Vol] 7.9 g/dL Normal 6.3-8.0 [facility] Comment on above: Performed By: #### L LP14 #### [facility] [address] [place], [place] [address] Sodium [Moles/Vol] 138 mmol/L Normal 136-144 [facility] Comment on above: Performed By: #### L LP14 #### [facility] [address] [place], [place] [address] Urea nitrogen [Mass/Vol] 17 mg/dL Normal 7-21 [facility] Comment on above: Performed By: #### L LP14 #### [facility] [address] [place] [address] Hemogram/Diffon 03-09-2020 Abs. Baso 0.03 thou/cmm Normal 0.00-0.08 [facility] Comment on above: Performed By: #### L CBCD #### [facility] [address] [place] [address] Abs. Ray 0.66 thou/cmm Normal 0.20-1.00 [facility] Comment on above: Performed By: #### L CBCD #### [facility] [address] [place] [address] Abs. Neut (ANC) 8.38 thou/cmm High 3.00-5.67 [facility] Comment on above: Performed By: #### L CBCD #### [address] [address] Basophils/100 WBC (Bld) 0.2 % Normal A [facility] Comment on above: Performed By: #### L CBCD #### [facility] [address] [place], [place] [address] Eosinophils (Bld) [#/Vol] 0.18 thou/cmm Normal 0.00-0. 41 [facility] Comment on above: Performed By: #### L CBCD #### [address] [address] Eosinophils/100 WBC (Bld) 1.4 % Normal [facility] Comment on above: Performed By: #### L CBCD #### [place] [address] Erythrocyte distribution width (RBC) [Ratio] 11.5 % Normal 11.5-15.9 [facility] Comment on above: Performed By: #### L CBCD #### [facility] [address] [place], [place] [address] Hematocrit (Bld) [Volume fraction] 42.8 % Normal 37.0-47.0 [facility] Comment on above: Performed By: #### L CBCD #### [facility] [address] [place], [place] [address] Hemoglobin (Bld) [Mass/Vol] 14.6 g/dL Normal 12.0-16.0 [facility] Comment on above: Performed By: #### L CBCD #### [address] [address] Lymphocytes (Bld) [#/Vol] 3.25 thou/cmm Normal 1.50-3. 65 [facility] Comment on above: Performed By: #### L CBCD #### [address] [address] Lymphocytes/100 WBC (Bld) 26.0 % Normal [facility] Comment on above: Performed By: #### L CBCD #### [address] [address] MCH (RBC) [Entitic mass] 31.7 pg High 27.0-31.0 [facility] Comment on above: Performed By: #### L CBCD #### [address] [address] MCHC (RBC) [Mass/Vol] 34.1 % Normal 32.0-36.0 [facility] Comment on above: Performed By: #### L CBCD #### [address] [address] MCV (RBC) [Entitic vol] 92.8 fL Normal 81.0-99.0 [facility] Comment on above: Performed By: #### L CBCD #### [address] [address] Monocytes/100 WBC (Bld) 5.3 % Normal [facility] Comment on above: Performed By: #### L CBCD #### [facility] [address] [place], [place] [address] Platelet mean volume (Bld) [Entitic vol] 9.3 fL Normal 7.1-10.5 [facility] Comment on above: Performed By: #### L CBCD #### [facility] [address] [place], [place] [address] Platelets (Bld) [#/Vol] 316 thou/cmm Normal 150-400 [facility] Comment on above: Performed By: #### L CBCD #### [address] [address] RBC (Bld) [#/Vol] 4.61 mil/cmm Normal 4.20-5.40 [facility] Comment on above: Performed By: #### L CBCD #### [place] [address] Seg Neutrophil 67.1 % Normal [facility] Comment on above: Performed By: #### L CBCD #### [address] [address] WBC (Bld) [#/Vol] 12.5 thou/cmm High 4.8-10.5 [facility] Comment on above: Performed By: #### L CBCD #### [place] [address] Lipase Bloodon 03-09-2020 Lipase Blood 50 U/L Normal 16-61 [facility] Comment on above: Performed By: #### L LIP #### [address] [address] MDRD eGFRon 03-09-2020 GFR/1.73 sq M predicted among non-blacks MDRD (S/P/Bld) [Vol rate/Area] mL/min/{1.73_m2} Normal >60mL/min/ 1.73m2 [facility] Comment on above: Result Comment: If t he patient is , multiply the result by 1.210. Performed By: #### L GFR #### [place] [address] Protimeon 03-09-2020 INR Coag (PPP) [Relative time] 0.91 {INR} Normal 0.90-1.30 [facility] Comment on above: Result Comment: Anjana min K Antagonist (VKA) Therapeutic Range: INR 2 to 3 (Target INR of 2.5) Note: For patients treated with VKA drugs, such as warfarin, the [place] [employer] 2012 Guideline recommends a therapeutic INR range of 2 to 3 (target INR of 2.5). This recommendation includes high-risk patients with antiphospholipid syndrome with previous arterial or venous thromboembolism, current-generation mechanical or bioprosthetic aortic heart valve replacement. Note: Patients with mechanical aortic valve replacement and additional risk factors for thromboembolic events (atrial fibrillation, previous thromboembolism, LV dysfunction, hypercoagulable conditions) or an older generation mechanical AVR (i.e., ball in-Cage) or any mechanical MVR should have a INR therapeutic range of 2.5 to 3.5 target INR of 3). Velasquez GH, et al. Chest 2012; 141:7S-47S Uyen RA et al. [facility] 2017; 70: 252-289 Performed By: #### L PT #### [place] [address] PT Coag (PPP) [Time] 9.2 s Low 9.7-13.0 [facility] Comment on above: Result Comment: . Performed By: #### L PT #### [place] [address] Urinalysis Routineon 020 Appearance (U) CLEAR Normal [facility] Comment on above: Performed By: #### L URIN #### [place] [address] Bilirubin Urine Negative Normal Negative [facility] Comment on above: Performed By: #### L URIN #### [place] [address] Color (U) YELLOW Normal [facility] Comment on above: Performed By: #### L URIN #### [place] [address] Ep Cells Urine 0-2 Normal 0-5 [facility] Comment on above: Performed By: #### L URIN #### [facility] [address] [place] [address] Glucose Ql (U) Negative Normal Negative [facility] Comment on above: Performed By: #### L URIN #### [facility] [address] [place] [address] Hemoglobin,Urine 1+ Abnormal Negative [facility] Comment on above: Performed By: #### L URIN #### [facility] [address] [place] [address] Ketone Urine Negative Normal Negative [facility] Comment on above: Performed By: #### L URIN #### [place] [address] Leukocytes Esterase Negative Normal Negative [facility] Comment on above: Performed By: #### L URIN #### [place] [address] Nitrites Urine Negative Normal Negative [facility] Comment on above: Performed By: #### L URIN #### [place] [address] pH (U) 6.5 [pH] Normal 5.0-8.0 [facility] Comment on above: Performed By: #### L URIN #### [place] [address] Protein (U) [Mass/Vol] Negative Normal Negative [facility] Comment on above: Performed By: #### L URIN #### [place] [address] RBC LM.HPF (Urine sed) [#/Area] 0-3 Normal 0-3 [facility] Comment on above: Performed By: #### L URIN #### [place] [address] Specific [place], Ur 1.010 Normal 1.005-1 .03 0 [facility] Comment on above: Performed By: #### L URIN #### [place] [address] Urobilinogen,Ur 0.2 EU/dL Normal 0.2-1.0 [facility] Comment on above: Performed By: #### L URIN #### [facility] [address] [place], [place] [address] WBC LM.HPF (Urine sed) [#/Area] 0-2 Normal 0-5 [facility] Comment on above: Performed By: #### L URIN #### [facility] [address] [place], [place] [address] CR Hand Complete 3+ Views [place] 01-20-2018 CR Hand Complete 3+ Views Left Patient Name: ISAAC RAHMAN Diagnostic Radiology Exam Date/Time 01/20/2018 12:45:25 EDT Exam CR Hand Complete 3+ Views Left Ordering Physician MD AVIS, AMANDA Syed Accession Number [id number] CPT4 Codes 85674 () Reason For Exam pain Report LEFT HAND CLINICAL INDICATION: Pain AP, lateral, and oblique plain film views of the left hand were obtained. COMPARISON: None FINDINGS: No fracture or dislocation of the left hand is identified. There is no abnormal soft tissue swelling or radiopaque foreign body seen. There is mild loss of joint space and degenerative spurring of the interphalangeal joints of the left hand diffusely. IMPRESSION: No fracture or dislocation of the left hand is identified. 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 No bony erosions are seen. Report Dictated on Final Dictated: 01/20/2018 1:39 pm Dictating Physician: SAIDA BUTT Signed Date and Time: 01/20/2018 1:39 pm Signed by: SAIDA BUTT Transcribed Date and Time: 01/20/2018 1:39 Normal [facility] CR Hand Complete 3+ Views Ri lila 01-20-2018 CR Hand Complete 3+ Views Right Patient Name: ISAAC RAHMAN Diagnostic Radiology Exam Date/Time 01/20/2018 12:45:25 EDT Exam CR Hand Complete 3+ Views Right Ordering Physician MD ALBARRAN RALLIS M. Accession Number [id number] CPT4 Codes 59306 () Reason For Exam Pain Report RIGHT HAND CLINICAL INDICATION: Pain AP, lateral, and oblique plain film views of the right hand were obtained. COMPARISON: None FINDINGS: No acute fracture or dislocation of the right hand is identified. There is an old, healed deformity of the proximal phalanx of the right fifth finger with mild ulnar angulation. There is no abnormal soft tissue swelling or radiopaque foreign body seen. There is mild loss of joint space and degenerative spurring of the interphalangeal joints of the right hand diffusely. IMPRESSION: Old, healed fracture of the proximal phalanx of the right fifth finger with mild ulnar angulation of the distal fracture fragment. Mild osteoarthritis of the right hand. No bony erosions are seen. Report Dictated on Final Dictated: 01/20/2018 1:39 pm Dictating Physician: SAIDA BUTT Signed Date and Time: 01/20/2018 1:40 pm Signed by: SAIDA BUTT Transcribed Date and Time: 01/20/2018 1:39 Normal [facility] Vital Signs Date Time Vital Sign Value Performing Clinician Franca alcaraz 07-26-2025 08:40-0400 Body height 152.[address] Andreas Buenrostro MD Work Phone: [facility] 07-26-2025 08:40-0400 Body mass index (BMI) [Ratio] 32.2 kg/m2 Dr. Andreas Buenrostro MD Work Phone: [facility] 07-26-2025 08:40-0400 Body temperature 97 [degF] Dr. Andreas Buenrostro MD Work Phone: [facility] 07-26-2025 08:40-0400 Body weight 74.[address] Andreas Buenrostro MD Work Phone: [facility] 07-26-2025 08:40-0400 Diastolic blood pressure 80 mm[Hg] Dr. Andreas Buenrostro MD Work Phone: [facility] 07-26-2025 08:40-0400 Heart rate 57 /min Dr. Andreas Buenrostro MD Work Phone: [facility] 07-26-2025 08:40-0400 Respiratory rate 16 /min Dr. Andreas Buenrostro MD Work Phone: [facility] 07-26-2025 08:40-0400 SaO2% (BldA) [Mass fraction] 96 % Dr. Andreas Buenrostro MD Work Phone: [facility] 07-26-2025 08:40-0400 Systolic blood pressure 130 mm[Hg] Dr. Andreas Buenrostro MD Work Phone: [facility] 06-13-2025 16:37-0400 Body temperature 97.5 [degF] Dr. Andreas Buenrostro MD Work Phone[facility] [facility] 06-13-2025 16:37-0400 Diastolic blood pressure 71 mm[Hg] Dr. Andreas Buenrostro MD Work Phone: [facility] 06-13-2025 16:37-0400 Heart rate 57 /min Dr. Andreas Buenrostro MD Work Phone: [facility] 06-13-2025 16:37-0400 Respiratory rate 19 /min Dr. Andreas Buenrostro MD Work Phone: [facility] 06-13-2025 16:37-0400 SaO2% (BldA) [Mass fraction] 99 % Dr. Andreas Buenrostro MD Work Phone: [facility] 06-13-2025 16:37-0400 Systolic blood pressure 160 mm[Hg] Dr. Andreas Buenrostro MD Work Phone: [facility] 06-13-2025 12:29-0400 Body height 152.[address] Andreas Buenrostro MD Work Phone: [facility] 06-13-2025 12:29-0400 Body mass index (BMI) [Ratio] 32 kg/m2 Dr. Andreas Buenrostro MD Work Phone: [facility] 06-13-2025 12:29-0400 Body weight 74.[address] Andreas Buenrostro MD Work Phone: [facility] 06-13-2025 11:45-0400 Body height 152.[address] Andreas Buenrostro MD Work Phone: [facility] 06-13-2025 11:45-0400 Body mass index (BMI) [Ratio] 32.2 kg/m2 Dr. Andreas Buenrostro MD Work Phone: [facility] 06-13-2025 11:45-0400 Body temperature 96.3 [degF] Dr. Andreas Buenrostro MD Work Phone: [facility] 06-13-2025 11:45-0400 Body weight 74.[address] Andreas Buenrostro MD Work Phone: [facility] 06-13-2025 11:45-0400 Diastolic blood pressure 74 mm[Hg] Dr. Andreas Buenrostro MD Work Phone: [facility] 06-13-2025 11:45-0400 Heart rate 62 /min Dr. Andreas Buenrostro MD Work Phone: [facility] 06-13-2025 11:45-0400 Respiratory rate 16 /min Dr. Andreas Buenrostro MD Work Phone: [facility] 06-13-2025 11:45-0400 SaO2% (BldA) [Mass fraction] 97 % Dr. Andreas Buenrostro MD Work Phone: [facility] 06-13-2025 11:45-0400 Systolic blood pressure 142 mm[Hg] Dr. Andreas Buenrostro MD Work Phone: [facility] 04-11-2025 12:54-0400 Body height 152.[address] Andreas Buenrostro MD Work Phone: [facility] 04-11-2025 12:54-0400 Body mass index (BMI) [Ratio] 32.8 kg/m2 Dr. Andreas Buenrostro MD Work Phone: [facility] 04-11-2025 12:54-0400 Body temperature 98 [degF] Dr. Andreas Buenrostro MD Work Phone: [facility] 04-11-2025 12:54-0400 Body weight 76.[address] Andreas Buenrostro MD Work Phone: [facility] 04-11-2025 12:54-0400 Diastolic blood pressure 98 mm[Hg] Dr. Andreas Buenrostro MD Work Phone: [facility] 04-11-2025 12:54-0400 Heart rate 76 /min Dr. Andreas Buenrostro MD Work Phone: [facility] 04-11-2025 12:54-0400 Respiratory rate 18 /min Dr. Andreas Buenrostro MD Work Phone: [facility] 04-11-2025 12:54-0400 SaO2% (BldA) [Mass fraction] 94 % Dr. Andreas Buenrostro MD Work Phone: [facility] 04-11-2025 12:54-0400 Systolic blood pressure 162 mm[Hg] Dr. Andreas Buenrostro MD Work Phone: [facility] 01-25-2025 11:27-0400 Body mass index (BMI) [Ratio] 33.7 kg/m2 Dr. Andreas Buenrostro MD Work Phone: [facility] 01-25-2025 11:27-0400 Body temperature 96.6 [degF] Dr. Andreas Buenrostro MD Work Phone: [facility] 01-25-2025 11:27-0400 Body weight 78.[address] Andreas Buenrostro MD Work Phone: [facility] 01-25-2025 11:27-0400 Diastolic blood pressure 80 mm[Hg] Dr. Andreas Buenrostro MD Work Phone: [facility] 01-25-2025 11:27-0400 Heart rate 63 /min Dr. Andreas Buenrostro MD Work Phone: [facility] 01-25-2025 11:27-0400 Respiratory rate 20 /min Dr. Andreas Buenrostro MD Work Phone: [facility] 01-25-2025 11:27-0400 SaO2% (BldA) [Mass fraction] 97 % Dr. Andreas Buenrostro MD Work Phone: [facility] 01-25-2025 11:27-0400 Systolic blood pressure 158 mm[Hg] Dr. Andreas Buenrostro MD Work Phone: [facility] 02-05-2024 07:39-0400 Body height 152.[address] Andreas Buenrostro Work Phone: [facility] 02-05-2024 07:39-0400 Body mass index (BMI) [Ratio] 33.2 kg/m2 Dr. Andreas Buenrostro Work Phone: [facility] 02-05-2024 07:39-0400 Body temperature 97.6 [degF] Dr. Andreas Buenrostro Work Phone: [facility] 02-05-2024 07:39-0400 Body weight 77.[address] Andreas Buenrostro Work Phone: [facility] 02-05-2024 07:39-0400 Diastolic blood pressure 70 mm[Hg] Dr. Andreas Buenrostro Work Phone: [facility] 02-05-2024 07:39-0400 Heart rate 60 /min Dr. Andreas Buenrostro Work Phone: [facility] 02-05-2024 07:39-0400 Respiratory rate 16 /min Dr. Andreas Buenrostro Work Phone: [facility] 02-05-2024 07:39-0400 SaO2% (BldA) [Mass fraction] 97 % Dr. Andreas Buenrostro Work Phone: [facility] 02-05-2024 07:39-0400 Systolic blood pressure 130 mm[Hg] Dr. Andreas Buenrostro Work Phone: [facility] 11-03-2023 08:07-0500 Body height 152.[address] Andreas Buenrostro Work Phone: [facility] 11-03-2023 08:07-0500 Body mass index (BMI) [Ratio] 32.8 kg/m2 Dr. Andreas Buenrostro Work Phone: [facility] 11-03-2023 08:07-0500 Body temperature 97.3 [degF] Dr. Andreas Buenrostro Work Phone: [facility] 11-03-2023 08:07-0500 Body weight 76.[address] Andreas Buenrostro Work Phone: [facility] 11-03-2023 08:07-0500 Diastolic blood pressure 82 mm[Hg] Dr. Andreas Buenrostro Work Phone: [facility] 11-03-2023 08:07-0500 Heart rate 66 /min Dr. Andreas Buenrostro Work Phone: [facility] 11-03-2023 08:07-0500 Respiratory rate 16 /min Dr. Andreas Buenrostro Work Phone: [facility] 11-03-2023 08:07-0500 SaO2% (BldA) [Mass fraction] 99 % Dr. Andreas Buenrostro Work Phone: [facility] 11-03-2023 08:07-0500 Systolic blood pressure 138 mm[Hg] Dr. Andreas Buenrostro Work Phone: [facility] 08-04-2023 13:54-0400 Body height 152.[address] Kashmir Leong Work Phone: 6(401)042-681775 [place] [address] 08-04-2023 13:54-0400 Body mass index (BMI) [Ratio] 31.3 kg/m2 Dr. Kashmir Leong Work Phone: 8(706)018-230275 [place] [address] 08-04-2023 13:54-0400 Body temperature 95.7 [degF] Dr. Kashmir Leong Work Phone: 4(757)204-167875 [place] [address] 08-04-2023 13:54-0400 Body weight 72.[address] Kashmir Leong Work Phone: 6(956)592-770875 [place] [address] 08-04-2023 13:54-0400 Diastolic blood pressure 88 mm[Hg] Dr. Kashmir Leong Work Phone: 5(096)648-318975 [place] [address] 08-04-2023 13:54-0400 Heart rate 62 /min Dr. Kashmir Leong Work Phone: 9(621)146-422975 [place] [address] 08-04-2023 13:54-0400 Respiratory rate 18 /min Dr. Kashmir Leong Work Phone: 8(668)016-817975 [place] [address] 08-04-2023 13:54-0400 SaO2% (BldA) [Mass fraction] 96 % Dr. Kashmir Leong Work Phone: 4(537)401-052375 [place] [address] 08-04-2023 13:54-0400 Systolic blood pressure 146 mm[Hg] Dr. Kashmir Leong Work Phone: 4(243)499-460775 [place] [address] 07-30-2023 13:42-0400 Heart rate 90 /min Dr. Kashmir Leong Work Phone: 1(453)621-614975 [place] [address] 07-30-2023 13:42-0400 SaO2% (BldA) [Mass fraction] 98 % Dr. Kashmir Leong Work Phone: 7(246)194-085675 [place] [address] 07-30-2023 10:35-0400 Body mass index (BMI) [Ratio] 30.8 kg/m2 Dr. Kashmir Leong Work Phone: 6(528)638-422575 [place] [address] 07-30-2023 10:35-0400 Body temperature 97.2 [degF] Dr. Kashmir Leong Work Phone: 4(999)159-152582 [place] [address] 07-30-2023 10:35-0400 Body weight 71.[address] Kashmir Leong Work Phone: 2(455)406-582082 [place] [address] 07-30-2023 10:35-0400 Diastolic blood pressure 118 mm[Hg] Dr. Kashmir Leong Work Phone: 9(547)756-456482 [place] [address] 07-30-2023 10:35-0400 Respiratory rate 14 /min Dr. Kashmir Leong Work Phone: 9(170)294-806775 [place] [address] 07-30-2023 10:35-0400 Systolic blood pressure 171 mm[Hg] Dr. Kashmir Leong Work Phone: 6(257)121-684675 [place] [address] 07-18-2023 08:17-0400 Body mass index (BMI) [Ratio] 31.6 kg/m2 Dr. Kashmir Leong Work Phone: 9(635)784-319992 [address] 07-18-2023 08:17-0400 Body temperature 98.6 [degF] Dr. Kashmir Leong Work Phone: 9(664)500-595382 [place] [address] 07-18-2023 08:17-0400 Body weight 73.[address] Kashmir Leong Work Phone: 0(634)865-676082 [place] [address] 07-18-2023 08:17-0400 Diastolic blood pressure 86 mm[Hg] Dr. Kashmir Leong Work Phone: 2(914)391-304682 [place] [address] 07-18-2023 08:17-0400 Heart rate 70 /min Dr. Kashmir Leong Work Phone: [facility] 07-18-2023 08:17-0400 SaO2% (BldA) [Mass fraction] 98 % Dr. Kashmir Leong Work Phone: 3(935)380-651382 [place] [address] 07-18-2023 08:17-0400 Systolic blood pressure 150 mm[Hg] Dr. Kashmir Leong Work Phone: 6(670)851-976475 [place] [address] 05-01-2023 11:20-0400 Body mass index (BMI) [Ratio] 31.5 kg/m2 Dr. Kashmir Leong Work Phone: 5(873)724-563375 [place] [address] 05-01-2023 11:20-0400 Body temperature 97.3 [degF] Dr. Kashmir Leong Work Phone: 8(709)974-249875 [place] [address] 05-01-2023 11:20-0400 Body weight 73.[address] Kashmir Leong Work Phone: 1(916)540-028575 [place] [address] 05-01-2023 11:20-0400 Diastolic blood pressure 78 mm[Hg] Dr. Kashmir Leong Work Phone: 0(917)469-943575 [place] [address] 05-01-2023 11:20-0400 Heart rate 72 /min Dr. Kashmir Leong Work Phone: 4(553)032-834375 [place] [address] 05-01-2023 11:20-0400 Respiratory rate 16 /min Dr. Kashmir Leong Work Phone: 2(137)574-387575 [place] [address] 05-01-2023 11:20-0400 SaO2% (BldA) [Mass fraction] 97 % Dr. Kashmir Leong Work Phone: 8(544)591-847175 [place] [address] 05-01-2023 11:20-0400 Systolic blood pressure 118 mm[Hg] Dr. Kashmir Leong Work Phone: 8(622)216-738075 [place] [address] 04-15-2023 12:01-0400 Diastolic blood pressure 81 mm[Hg] Dr. Kashmir Leong Work Phone: 8(575)736-217075 [place] [address] 04-15-2023 12:01-0400 Heart rate 78 /min Dr. Kashmir Leogn Work Phone: 0(844)875-483375 [place] [address] 04-15-2023 12:01-0400 Respiratory rate 14 /min Dr. Kashmir Leong Work Phone: 0(072)786-890675 [place] [address] 04-15-2023 12:01-0400 SaO2% (BldA) [Mass fraction] 96 % Dr. Kahsmir Leong Work Phone: 4(666)855-114882 [place] [address] 04-15-2023 12:01-0400 Systolic blood pressure 143 mm[Hg] Dr. Kashmir Leong Work Phone: 2(397)288-460975 [place] [address] 04-15-2023 09:51-0400 Body mass index (BMI) [Ratio] 30.4 kg/m2 Dr. Kashmir Leong Work Phone: 7(477)873-254675 [place] [address] 04-15-2023 09:51-0400 Body temperature 96.7 [degF] Dr. Kashmir Leong Work Phone: 6(066)702-306075 [place] [address] 04-15-2023 09:51-0400 Body weight 70.[address] Kashmir Leong Work Phone: 6(762)448-364975 [place] [address] 04-02-2023 12:00-0400 Body temperature 98 [degF] Dr. Kashmir Leong Work Phone: 2(181)793-326975 [place] [address] 04-02-2023 12:00-0400 Diastolic blood pressure 80 mm[Hg] Dr. Kashmir Leong Work Phone: 2(459)000-435875 [place] [address] 04-02-2023 12:00-0400 Heart rate 66 /min Dr. Kashmir Leong Work Phone: 0(416)368-156375 [place] [address] 04-02-2023 12:00-0400 Respiratory rate 16 /min Dr. Kashmir Leong Work Phone: 7(211)707-798975 [place] [address] 04-02-2023 12:00-0400 SaO2% (BldA) [Mass fraction] 97 % Dr. Kashmir Leong Work Phone: 4(088)429-082475 [place] [address] 04-02-2023 12:00-0400 Systolic blood pressure 123 mm[Hg] Dr. Kashmir Leong Work Phone: 8(294)559-292375 [place] [address] 04-02-2023 10:24-0400 Body height 152.[address] Kashmir Leong Work Phone: 7(456)867-648775 [place] [address] 04-02-2023 10:24-0400 Body mass index (BMI) [Ratio] 29.7 kg/m2 Dr. Kashmir Leong Work Phone: 4(870)562-677175 [place] [address] 04-02-2023 10:24-0400 Body weight [address] Kashmir Leong Work Phone: 7(289)911-129575 [place] [address] 04-01-2023 14:57-0400 Body mass index (BMI) [Ratio] 30.4 kg/m2 Dr. Kashmir Leong Work Phone: 4(444)725-883375 [place] [address] 04-01-2023 14:57-0400 Body weight 70.[address] Kashmir Leong Work Phone: 1(131)590-928375 [place] [address] 04-01-2023 14:57-0400 Diastolic blood pressure 81 mm[Hg] Dr. Kashmir Leong Work Phone: 1(023)129-777375 [place] [address] 04-01-2023 14:57-0400 Heart rate 62 /min Dr. Kashmir Leong Work Phone: 1(456)811-076175 [place] [address] 04-01-2023 14:57-0400 Respiratory rate 18 /min Dr. Kashmir Leong Work Phone: 6(341)534-038975 [place] [address] 04-01-2023 14:57-0400 Systolic blood pressure 133 mm[Hg] Dr. Kashmir Leong Work Phone: 5(650)427-323875 [place] [address] 03-31-2023 12:23-0400 Diastolic blood pressure 84 mm[Hg] Dr. Kashmir Leong Work Phone: 3(957)815-035175 [place] [address] 03-31-2023 12:23-0400 Systolic blood pressure 144 mm[Hg] Dr. Kashmir Leong Work Phone: 4(822)620-537675 [place] [address] 03-31-2023 10:01-0400 Body mass index (BMI) [Ratio] 30.4 kg/m2 Dr. Kashmir Leong Work Phone: 7(646)513-761175 [place] [address] 03-31-2023 10:01-0400 Body temperature 97.6 [degF] Dr. Kashmir Leong Work Phone: 8(403)750-991075 [place] [address] 03-31-2023 10:01-0400 Body weight 70.[address] Kashmir Leong Work Phone: 0(567)544-720982 [place] [address] 03-31-2023 10:01-0400 Heart rate 72 /min Dr. Kashmir Leong Work Phone: 5(435)124-194182 [place] [address] 03-31-2023 10:01-0400 Respiratory rate 14 /min Dr. Kashmir Leong Work Phone: 2(315)203-399482 [place] [address] 03-31-2023 10:01-0400 SaO2% (BldA) [Mass fraction] 98 % Dr. Kashmir Leong Work Phone: 3(357)699-718875 [place] [address] 03-17-2023 13:46-0400 Diastolic blood pressure 93 mm[Hg] Dr. Kashmir Leong Work Phone: 0(725)011-636875 [place] [address] 03-17-2023 13:46-0400 Heart rate 80 /min Dr. Kashmir Leong Work Phone: 1(920)229-810482 [place] [address] 03-17-2023 13:46-0400 Respiratory rate 18 /min Dr. Kashmir Leong Work Phone: 9(070)040-260782 [place] [address] 03-17-2023 13:46-0400 SaO2% (BldA) [Mass fraction] 98 % Dr. Kashmir Leong Work Phone: 1(151)501-032282 [place] [address] 03-17-2023 13:46-0400 Systolic blood pressure 140 mm[Hg] Dr. Kashmir Leong Work Phone: 8(790)828-437382 [place] [address] 03-17-2023 08:44-0400 Body mass index (BMI) [Ratio] 31.6 kg/m2 Dr. Kashmir Leong Work Phone: 0(876)600-968182 [place] [address] 03-17-2023 08:44-0400 Body temperature 97.8 [degF] Dr. Kashmir Leong Work Phone: 4(690)022-656082 [place] [address] 03-17-2023 08:44-0400 Body weight 73.[address] Kashmir Leong Work Phone: 2(791)451-920575 [place] [address] 02-17-2023 10:49-0400 Body height 152.[address] Kashmir Leong Work Phone: 6(649)577-976375 [place] [address] 02-17-2023 10:49-0400 Body mass index (BMI) [Ratio] 31.6 kg/m2 Dr. Kashmir Leong Work Phone: 4(005)034-958775 [place] [address] 02-17-2023 10:49-0400 Body temperature 98.2 [degF] Dr. Kashmir Leong Work Phone: 8(935)651-500275 [place] [address] 02-17-2023 10:49-0400 Body weight 73.[address] Kashmir Leong Work Phone: 8(937)116-270375 [place] [address] 02-17-2023 10:49-0400 Diastolic blood pressure 78 mm[Hg] Dr. Kashmir Leong Work Phone: 8(904)991-518975 [place] [address] 02-17-2023 10:49-0400 Heart rate 67 /min Dr. Kashmir Leong Work Phone: 1(228)822-152275 [place] [address] 02-17-2023 10:49-0400 Respiratory rate 16 /min Dr. Kashmir Leong Work Phone: 9(987)597-559475 [place] [address] 02-17-2023 10:49-0400 SaO2% (BldA) [Mass fraction] 97 % Dr. Kashmir Leong Work Phone: 5(367)078-360075 [place] [address] 02-17-2023 10:49-0400 Systolic blood pressure 122 mm[Hg] Dr. Kashmir Loeng Work Phone: 2(540)276-195375 [place] [address] 02-11-2023 07:31-0400 Diastolic blood pressure 79 mm[Hg] Dr. Kashmir Leong Work Phone: 3(369)489-481175 [place] [address] 02-11-2023 07:31-0400 Heart rate 82 /min Dr. Kashmir Leong Work Phone: 8(437)411-951075 [place] [address] 02-11-2023 07:31-0400 Respiratory rate 16 /min Dr. Kashmir Leong Work Phone: 5(312)508-919975 [place] [address] 02-11-2023 07:31-0400 SaO2% (BldA) [Mass fraction] 97 % Dr. Kashmir Leong Work Phone: 8(350)938-578275 [place] [address] 02-11-2023 07:31-0400 Systolic blood pressure 146 mm[Hg] Dr. Kashmir Leong Work Phone: 4(278)119-396275 [place] [address] 02-11-2023 05:41-0400 Body temperature 97.6 [degF] Dr. Kashmir Leong Work Phone: 3(961)373-463275 [place] [address] 02-11-2023 05:38-0400 Body mass index (BMI) [Ratio] 31.4 kg/m2 Dr. Kashmir Leong Work Phone: 1(485)246-939575 [place] [address] 02-11-2023 05:38-0400 Body weight 72.[address] Kashmir Leong Work Phone: 5(012)029-438175 [place] [address] 02-03-2023 21:01-0400 Diastolic blood pressure 70 mm[Hg] Dr. Kashmir Leong Work Phone: 8(671)328-606575 [place] [address] 02-03-2023 21:01-0400 SaO2% (BldA) [Mass fraction] 97 % Dr. Kashmir Leong Work Phone: 1(239)182-877475 [place] [address] 02-03-2023 21:01-0400 Systolic blood pressure 169 mm[Hg] Dr. Kashmir Leong Work Phone: 6(797)919-664575 [place] [address] 02-03-2023 19:05-0400 Body mass index (BMI) [Ratio] 32.1 kg/m2 Dr. Kashmir Leong Work Phone: 4(605)167-681175 [place] [address] 02-03-2023 19:05-0400 Body weight 74.[address] Kashmir Leong Work Phone: 3(204)369-390575 [place] [address] 02-03-2023 19:05-0400 Heart rate 70 /min Dr. Kashmir Leong Work Phone: 0(938)569-896175 [place] [address] 02-03-2023 19:05-0400 Respiratory rate 12 /min Dr. Kashmir Leong Work Phone: 6(361)174-991582 [place] [address] 02-03-2023 17:46-0400 Body height 152.[address] Kashmir Leong Work Phone: 3(917)983-478975 [place] [address] 02-03-2023 17:46-0400 Body temperature 97.2 [degF] Dr. Kashmir Leong Work Phone: 9(631)418-587875 [place] [address] 01-23-2023 12:55-0400 Body height 152.[address] Kashmir Leong Work Phone: 6(768)208-987275 [place] [address] 01-23-2023 12:55-0400 Body mass index (BMI) [Ratio] 32 kg/m2 Dr. Kashmir Leong Work Phone: 5(069)566-341475 [place] [address] 01-23-2023 12:55-0400 Body temperature 94.6 [degF] Dr. Kashmir Leong Work Phone: 1(354)589-524475 [place] [address] 01-23-2023 12:55-0400 Body weight 74.[address] Kashmir Leong Work Phone: 2(154)637-330375 [place] [address] 01-23-2023 12:55-0400 Diastolic blood pressure 78 mm[Hg] Dr. Kashmir Leong Work Phone: 8(039)327-483475 [place] [address] 01-23-2023 12:55-0400 Heart rate 56 /min Dr. Kashmir Leong Work Phone: 5(296)304-930275 [place] [address] 01-23-2023 12:55-0400 SaO2% (BldA) [Mass fraction] 97 % Dr. Kashmir Leong Work Phone: 7(582)881-912175 [place] [address] 01-23-2023 12:55-0400 Systolic blood pressure 118 mm[Hg] Dr. Kashmir Leong Work Phone: 4(038)353-041275 [place] [address] 01-21-2023 16:27-0400 Diastolic blood pressure 90 mm[Hg] Dr. Kashmir Leong Work Phone: 6(259)712-035375 [place] [address] 01-21-2023 16:27-0400 Systolic blood pressure 158 mm[Hg] Dr. Kashmir Leong Work Phone: 1(885)889-125175 [place] [address] 01-21-2023 15:01-0400 Body mass index (BMI) [Ratio] 32.4 kg/m2 Dr. Kashmir Leong Work Phone: 7(717)681-011375 [place] [address] 01-21-2023 15:01-0400 Body temperature 96.5 [degF] Dr. Kashmir Leong Work Phone: 4(795)472-461775 [place] [address] 01-21-2023 15:01-0400 Body weight 75.[address] Kashmir Leong Work Phone: 4(132)969-898875 [place] [address] 01-21-2023 15:01-0400 Heart rate 54 /min Dr. Kashmir Leong Work Phone: 9(658)536-427675 [place] [address] 01-21-2023 15:01-0400 Respiratory rate 16 /min Dr. Kashmir Leong Work Phone: 0(137)638-797375 [place] [address] 01-21-2023 15:01-0400 SaO2% (BldA) [Mass fraction] 97 % Dr. Kashmir Leong Work Phone: 8(522)285-758375 [place] [address] 01-20-2023 23:12-0400 Diastolic blood pressure 70 mm[Hg] Dr. Kashmir Leong Work Phone: 7(264)989-628575 [place] [address] 01-20-2023 23:12-0400 Heart rate 56 /min Dr. Kashmir Leong Work Phone: 7(366)292-453975 [place] [address] 01-20-2023 23:12-0400 Respiratory rate 20 /min Dr. Kashmir Leong Work Phone: 8(574)657-595175 [place] [address] 01-20-2023 23:12-0400 SaO2% (BldA) [Mass fraction] 99 % Dr. Kashmir Leong Work Phone: 9(392)481-948075 [place] [address] 01-20-2023 23:12-0400 Systolic blood pressure 166 mm[Hg] Dr. Kashmir Leong Work Phone: 2(674)104-520875 [place] [address] 01-20-2023 19:02-0400 Body temperature 97.6 [degF] Dr. Kashmir Leong Work Phone: 0(422)691-672782 [place] [address] 01-15-2023 00:15-0400 Diastolic blood pressure 87 mm[Hg] Dr. Kashmir Leong Work Phone: 9(655)679-638275 [place] [address] 01-15-2023 00:15-0400 SaO2% (BldA) [Mass fraction] 97 % Dr. Kashmir Leong Work Phone: 3(673)766-322782 [place] [address] 01-15-2023 00:15-0400 Systolic blood pressure 101 mm[Hg] Dr. Kashmir Leong Work Phone: 0(325)010-456492 [address] 01-14-2023 21:30-0400 Body height 152.[address] Kashmir Leong Work Phone: 1(965)483-598475 [place] [address] 01-14-2023 21:30-0400 Body mass index (BMI) [Ratio] 32.1 kg/m2 Dr. Kashmir Leong Work Phone: 7(050)712-244882 [place] [address] 01-14-2023 21:30-0400 Body temperature 97.1 [degF] Dr. Kashmir Leong Work Phone: 3(115)716-609382 [place] [address] 01-14-2023 21:30-0400 Body weight 74.[address] Kashmir Leong Work Phone: 8(395)623-121982 [place] [address] 01-14-2023 21:30-0400 Heart rate 66 /min Dr. Kashmir Leong Work Phone: 5(321)151-635682 [place] [address] 01-14-2023 21:30-0400 Respiratory rate 20 /min Dr. Kashmir Leong Work Phone: 6(577)999-068182 [place] [address] 01-10-2023 22:45-0400 Diastolic blood pressure 72 mm[Hg] Dr. Kashmir Leong Work Phone: 8(257)586-057882 [place] [address] 01-10-2023 22:45-0400 Heart rate 64 /min Dr. Kashmir Leong Work Phone: 1(147)914-457582 [place] [address] 01-10-2023 22:45-0400 Respiratory rate 18 /min Dr. Kashmir Leong Work Phone: 2(070)514-807282 [place] [address] 01-10-2023 22:45-0400 SaO2% (BldA) [Mass fraction] 97 % Dr. Kashmir Leong Work Phone: 4(956)[phone] [place] [address] 01-10-2023 22:45-0400 Systolic blood pressure 163 mm[Hg] Dr. Kashmir Leong Work Phone: 4(241)[phone] [place] [address] 01-10-2023 17:42-0400 Body height 152.[address] Kashmir Leong Work Phone: 5(680)[phone] [place] [address] 01-10-2023 17:42-0400 Body mass index (BMI) [Ratio] 32.4 kg/m2 Dr. Kashmir Leong Work Phone: 6(935)952-259775 [place] [address] 01-10-2023 17:42-0400 Body temperature 97 [degF] Dr. Kashmir Leong Work Phone: 5(324)967-009075 [place] [address] 01-10-2023 17:42-0400 Body weight 75.[address] Kashmir Loeng Work Phone: 3(669)259-408075 [place] [address] 01-04-2023 11:15-0500 Body temperature 98.5 [degF] Dr. Kashmir Leong Work Phone: 1(387)855-620682 [place] [address] 01-04-2023 11:15-0500 Diastolic blood pressure 68 mm[Hg] Dr. Kashmir Leong Work Phone: 0(723)788-719982 [place] [address] 01-04-2023 11:15-0500 Heart rate 70 /min Dr. Kashmir Leong Work Phone: 3(624)654-681082 [place] [address] 01-04-2023 11:15-0500 Respiratory rate 18 /min Dr. Kashmir Leong Work Phone: 4(502)059-356082 [place] [address] 01-04-2023 11:15-0500 SaO2% (BldA) [Mass fraction] 97 % Dr. Kashmir Leong Work Phone: 8(704)215-397282 [place] [address] 01-04-2023 11:15-0500 Systolic blood pressure 151 mm[Hg] Dr. Kashmir Leong Work Phone: 3(003)810-479975 [place] [address] 01-01-2023 11:47-0500 Body weight 78.[address] Kashmir Leong Work Phone: 1(700)824-588175 [place] [address] 12-30-2022 08:50-0500 Body mass index (BMI) [Ratio] 33.8 kg/m2 Dr. Kashmir Leong Work Phone: 4(776)887-156175 [place] [address] 12-28-2022 10:18-0500 Body temperature 97.8 [degF] Dr. Kashmir Leong Work Phone: 3(399)181-241975 [place] [address] 12-28-2022 10:18-0500 Diastolic blood pressure 78 mm[Hg] Dr. Kashmir Leong Work Phone: 1(656)211-876175 [place] [address] 12-28-2022 10:18-0500 Heart rate 78 /min Dr. Kashmir Leong Work Phone: 7(625)754-530575 [place] [address] 12-28-2022 10:18-0500 Respiratory rate 16 /min Dr. Kashmir Leong Work Phone: 5(938)640-270075 [place] [address] 12-28-2022 10:18-0500 SaO2% (BldA) [Mass fraction] 99 % Dr. Kashmir Leong Work Phone: 9(118)094-830582 [place] [address] 12-28-2022 10:18-0500 Systolic blood pressure 145 mm[Hg] Dr. Kashmir Leong Work Phone: 9(711)765-311682 [place] [address] 12-28-2022 08:04-0500 Body height 152.[address] Kashmir Leong Work Phone: 3(919)795-135175 [place] [address] 12-28-2022 08:04-0500 Body mass index (BMI) [Ratio] 34.5 kg/m2 Dr. Kashmir Leong Work Phone: 1(260)917-549275 [place] [address] 12-28-2022 08:04-0500 Body weight 80.[address] Kashmir Leong Work Phone: [facility] 12-06-2022 08:05-0500 Diastolic blood pressure 75 mm[Hg] Thao Podlogar DIRECTOR REGULATORY AFFAIRS.REDIPPER Work Phone: [facility] 12-06-2022 08:05-0500 Heart rate 60 /min Thao Podlogar DIRECTOR REGULATORY AFFAIRS.REDIPPER Work Phone: [facility] 12-06-2022 08:05-0500 Systolic blood pressure 113 mm[Hg] Thao Podlogar DIRECTOR REGULATORY AFFAIRS.REDIPPER Work Phone: [facility] 12-06-2022 07:41-0500 Body weight 81.74 kg Thao Podlogar DIRECTOR REGULATORY AFFAIRS.REDIPPER Work Phone: [facility] 12-06-2022 07:41-0500 Respiratory rate 16 /min Thao Podlogar DIRECTOR REGULATORY AFFAIRS.REDIPPER Work Phone: [facility] 12-06-2022 07:41-0500 SaO2% (BldA) [Mass fraction] 95 % Thao Podlogar DIRECTOR REGULATORY AFFAIRS.REDIPPER Work Phone: [facility] 11-04-2022 09:28-0500 Diastolic blood pressure 86 mm[Hg] Thao Podlogar DIRECTOR REGULATORY AFFAIRS.REDIPPER Work Phone: [facility] 11-04-2022 09:28-0500 Heart rate 64 /min Thao Podlogar DIRECTOR REGULATORY AFFAIRS.REDIPPER Work Phone: [facility] 11-04-2022 09:28-0500 Systolic blood pressure 174 mm[Hg] Thao Podlogar DIRECTOR REGULATORY AFFAIRS.REDIPPER Work Phone: [facility] 11-04-2022 08:48-0500 Body weight 83.01 kg Thao Podlogar DIRECTOR REGULATORY AFFAIRS.REDIPPER Work Phone: [facility] 11-04-2022 08:48-0500 Respiratory rate 16 /min Thao Podlogar DIRECTOR REGULATORY AFFAIRS.REDIPPER Work Phone: [facility] 11-04-2022 08:48-0500 SaO2% (BldA) [Mass fraction] 96 % Thao Pineda APRN.CNP Work Phone: [facility] 06-17-2022 10:36-0400 Body weight 79.56 kg Maria Del Carmen Leong MD Work Phone: [facility] 06-17-2022 10:36-0400 Diastolic blood pressure 84 mm[Hg] Maria Del Carmen Leong MD Work Phone: [facility] 06-17-2022 10:36-0400 Heart rate 53 /min Maria Del Carmen Leong MD Work Phone: [facility] 06-17-2022 10:36-0400 Respiratory rate 16 /min Maria Del Carmen Leong MD Work Phone: [facility] 06-17-2022 10:36-0400 SaO2% (BldA) [Mass fraction] 97 % Maria Del Carmen Leong MD Work Phone: [facility] 06-17-2022 10:36-0400 Systolic blood pressure 130 mm[Hg] Maria Del Carmen Leong MD Work Phone: [facility] 06-15-2022 11:48-0400 Body weight 79.47 kg Maria Del Carmen Leong MD Work Phone: [facility] 06-15-2022 11:48-0400 Diastolic blood pressure 84 mm[Hg] Maria Del Carmen Leong MD Work Phone: [facility] 06-15-2022 11:48-0400 Heart rate 57 /min Maria Del Carmen Leong MD Work Phone: [facility] 06-15-2022 11:48-0400 Respiratory rate 16 /min Maria Del Carmen Leong MD Work Phone: [facility] 06-15-2022 11:48-0400 SaO2% (BldA) [Mass fraction] 96 % Maria Del Carmen Leong MD Work Phone: [facility] 06-15-2022 11:48-0400 Systolic blood pressure 150 mm[Hg] Maria Del Carmen Leong MD Work Phone: [facility] 05-09-2022 10:29-0400 Diastolic blood pressure 76 mm[Hg] Lulú Bean MD Work Phone: [facility] 05-09-2022 10:29-0400 Heart rate 57 /min Lulú Bean MD Work Phone: [facility] 05-09-2022 10:29-0400 Respiratory rate 16 /min Lulú Bean MD Work Phone: [facility] 05-09-2022 10:29-0400 SaO2% (BldA) [Mass fraction] 100 % Lulú Bean MD Work Phone: [facility] 05-09-2022 10:29-0400 Systolic blood pressure 120 mm[Hg] Lulú Bean MD Work Phone: [facility] 05-09-2022 10:10-0400 Body temperature 96.8 [degF] Lulú Bean MD Work Phone: [facility] 05-09-2022 08:29-0400 Body height 152.4 cm Lulú Bean MD Work Phone: [facility] 05-09-2022 08:29-0400 Body weight 77.11 kg Lulú Bean MD Work Phone: [facility] 04-22-2022 14:28-0400 Body weight 79.38 kg Liz Geneva DIRECTOR REGULATORY AFFAIRS.REDIPPER Work Phone: [facility] 04-22-2022 14:28-0400 Diastolic blood pressure 64 mm[Hg] Liz Zurawick DIRECTOR REGULATORY AFFAIRS.REDIPPER Work Phone: [facility] 04-22-2022 14:28-0400 Heart rate 72 /min Liz Zurawick DIRECTOR REGULATORY AFFAIRS.REDIPPER Work Phone: [facility] 04-22-2022 14:28-0400 Respiratory rate 16 /min Liz Zurawick DIRECTOR REGULATORY AFFAIRS.REDIPPER Work Phone: [facility] 04-22-2022 14:28-0400 Systolic blood pressure 138 mm[Hg] Liz Elenifabi VAZQUEZ.REDIPPER Work Phone: [facility] 03-11-2022 09:53-0400 Body height 152.4 cm Jovana Kalka PA-C Work Phone: [facility] 03-11-2022 09:53-0400 Body weight 80.29 kg Jovana Kalka PA-C Work Phone: [facility] 03-11-2022 09:53-0400 Diastolic blood pressure 84 mm[Hg] Jovana Kalka PA-C Work Phone: [facility] 03-11-2022 09:53-0400 Heart rate 59 /min Jovana Kalka PA-C Work Phone: [facility] 03-11-2022 09:53-0400 Systolic blood pressure 162 mm[Hg] Jovana Kalka PA-C Work Phone: [facility] 03-06-2022 10:10-0400 Diastolic blood pressure 90 mm[Hg] Maria Del Carmen Leong MD Work Phone: [facility] 03-06-2022 10:10-0400 Systolic blood pressure 142 mm[Hg] Maria Del Carmen Leong MD Work Phone: [facility] 03-06-2022 10:08-0400 Body weight 82.1 kg Maria Del Carmen Leong MD Work Phone: [facility] 03-06-2022 10:08-0400 Heart rate 78 /min Maria Del Carmen Leong MD Work Phone: [facility] 03-06-2022 10:08-0400 Respiratory rate 14 /min Maria Del Carmen Leong MD Work Phone: [facility] 01-22-2022 10:27-0400 Body height 152.4 cm Mari Turner APRN.REDIPPER Work Phone: [facility] 01-22-2022 10:27-0400 Body weight 81.92 kg Mari Turner APRN.REDIPPER Work Phone: [facility] 01-22-2022 10:27-0400 Diastolic blood pressure 80 mm[Hg] Mari Copelandhrie GEORGE.REDIPPER Work Phone: [facility] 01-22-2022 10:27-0400 Systolic blood pressure 170 mm[Hg] Mari Copelandsolo VAZQUEZ.REDIPPER Work Phone: [facility] Encounters Encounter Date Encounter Type Care Provider Facility Start: 09-01-2025 End: 09-01-2025 ambulatory Andreas Buenrostro Facility:[facility] Start: 07-26-2025 End: 07-26-[address] Andreas Buenrostro MD -[facility] Work Phone: Start: 07-26-2025 End: 07-26-[address] Andreas Buenrostro MD Work Phone: -[facility] Start: 06-18-2025 End: 06-18-2025 Emergency department patient visit ANDREAS BUENROSTRO Facility:[facility] Start: 06-17-2025 End: 06-17-2025 Patient encounter procedure Arthur Bull DO -[facility] Work Phone: Start: 06-17-2025 End: 06-17-[address] Andreas Buenrostro MD Work Phone: -[facility] Start: 06-13-2025 End: 06-13-2025 Emergency department patient visit Dr. Andreas Buenrostro MD Work Phone: -Emergency Department Work Phone: Start: 06-13-2025 End: 06-13-[address] Andreas Buenrostro MD -[facility] Work Phone: Start: 06-13-2025 End: 06-13-[address] Andreas Buenrostro MD Work Phone: -[facility] Start: 04-22-2025 End: 04-22-2025 Patient encounter procedure Kelin Conrad PA-C Work Phone: Orthopaedics Comment on above: Primary osteoarthrit is of knees, bilateral Start: 04-22-2025 End: 04-22-2025 ambulatory KELIN HOUSTON Facility:[facility] Start: 04-22-2025 End: 04-22-2025 Subsequent hospital visit by physician [facility] Work Phone: Radiology Comment on above: Pain in both knees, unspecified chronicity [M25.561, M25.562] Start: 04-21-2025 End: 04-21-2025 Orders Only Kelin Conrad PA-C Work Phone: Orthopaedics Comment on above: Acute pain of both k nees (Primary Dx); Pain in both knees, unspecified chronicity Start: 04-11-2025 End: 04-11-[address] Andreas Buenrostro MD -[facility] Work Phone: Start: 04-11-2025 End: 04-11-[address] Andreas Buenrostro MD Work Phone: [facility] Work Phone: Start: 04-08-2025 End: 04-08-[address] Andreas Buenrostro MD Work Phone: [facility] Work Phone: Start: 04-08-2025 End: 04-08-2025 Patient encounter procedure Arthur Bull DO -Laboratory Work Phone: Start: 04-08-2025 End: 04-08-2025 ambulatory Andreas Buenrostro Facility:[facility] Start: 02-14-2025 End: 02-14-2025 Patient encounter procedure Arthur Bull DO -[facility] Work Phone: Start: 02-14-2025 End: 02-14-2025 ambulatory Andreas Buenrostro Facility:[facility] Start: 02-14-2025 End: 02-14-2025 ambulatory Andreas Buenrostro Facility:[facility] Start: 01-25-2025 End: 01-25-[address] Andreas Beunrostro MD -[facility] Work Phone: Start: 01-25-2025 End: 02-25-2025 ambulatory Maria Del Carmen Leong MD Work Phone: [facility] [place] Start: 10-22-2024 End: 10-22-2024 ambulatory Andreas Buenrostro Facility:[facility] Start: 02-26-2024 End: 02-26-[address] Andreas Buenrostro Work Phone: [facility] Work Phone: Start: 02-26-2024 End: 02-26-[address] Andreas Buenrostro Work Phone: [facility]Outpatient Breast [facility] Work Phone: Start: 02-25-2024 ambulatory Maria Del Carmen Leong MD Work Phone: Internal Medicine [facility] Start: 02-24-2024 End: 02-24-[address] Andreas Buenrostro Work Phone: [facility] Work Phone: Start: 02-05-2024 End: 02-05-[address] Andreas Buenrostro Work Phone: [facility] Work Phone: Start: 02-05-2024 End: 02-05-[address] Andreas Buenrostro Work Phone: [facility] Work Phone: Start: 11-17-2023 End: 11-17-[address] Andreas Buenrostro Work Phone: [facility] Work Phone: Start: 11-17-2023 End: 11-17-[address] Andreas Buenrostro Work Phone: [facility] Work Phone: Start: 11-03-2023 End: 11-03-[address] Andreas Buenrostro Work Phone: [facility] Work Phone: Start: 11-03-2023 End: 11-03-[address] Andreas Buenrostro Work Phone: [facility] Work Phone: Start: 08-29-2023 End: 08-29-[address] Andreas Buenrostro Work Phone: [facility] Work Phone: Start: 08-04-2023 End: 08-04-[address] Kashmir Leong Work Phone: [facility] Work Phone: Start: 08-04-2023 End: 08-04-[address] Kashmir Leong Work Phone: [facility] [place] Start: 08-04-2023 End: 08-04-[address] Kashmir Leong Work Phone: [facility] Internal [facility] Work Phone: Start: 07-30-2023 End: 07-30-2023 Emergency department [facility] Start: 07-29-2023 End: 07-29-[address] [facility] Start: 07-18-2023 End: 07-18-[address] Kashmir Leong Work Phone: [facility] Work Phone: Start: 05-28-2023 End: 05-28-[address] Kashmir Leong Work Phone: [facility] Work Phone: Start: 05-01-2023 End: 05-01-[address] Kashmir Leong Work Phone: [facility] Internal [facility] Work Phone: Start: 04-15-2023 End: 04-15-[address] Kashmir Leong Work Phone: [facility]-Medical Out Work Phone: Start: 04-02-2023 Dr. Kashmir Leong Work Phone: [facility] Start: 04-02-2023 End: 04-02-[address] Kashmir Leong Work Phone: [facility] Work Phone: Start: 04-02-2023 End: 04-02-2023 Dr. Kashmir Leong Work Phone: [facility]-Endoscopy Start: 04-01-2023 End: 04-01-2023 Admission to same day surgery center Dr. Kashmir Leong Work Phone: [facility] Start: 04-01-2023 End: 04-01-2023 Dr. Kashmir Leong Work Phone: [facility] Start: 03-31-[address] Kashmir Leong Work Phone: [facility] Start: 03-31-2023 Dr. Kashmir Leong Work Phone: [facility] Start: 03-31-2023 End: 03-31-2023 Dr. Kashmir Leong Work Phone: [facility] Start: 03-27-2023 End: 03-27-2023 Dr. Kashmir Leong Work Phone: [facility] Start: 03-25-2023 End: 03-25-2023 Dr. Kashmir Leong Work Phone: [facility] Start: 03-17-2023 End: 03-17-2023 Dr. Kashmir Leong Work Phone: [facility]-Emergency Department Start: 03-05-2023 ambulatory Maria Del Carmen Leong MD Work Phone: Internal Medicine [facility] Start: 02-17-2023 End: 02-17-[address] Kashmir Leong Work Phone: [facility] Work Phone: Start: 02-17-2023 End: 02-17-2023 Dr. Kashmir Leong Work Phone: [facility] Start: 02-14-2023 End: 02-14-2023 Dr. Kashmir Leong Work Phone: [facility]-Laboratory, Specimen Start: 02-11-2023 End: 02-11-2023 Dr. Kashmir Leong Work Phone: [facility]-Emergency Department Start: 02-04-2023 End: 02-04-[address] Kashmir Leong Work Phone: [facility] Start: 02-04-2023 End: 02-04-2023 Dr. Kashmir Leong Work Phone: [facility] Start: 02-03-2023 End: 02-03-2023 Emergency department patient visit Dr. Kashmir Leong Work Phone: [facility]Emergency Department Start: 02-03-2023 End: 02-03-2023 Dr. Kashmir Leong Work Phone: [facility]Emergency Department Start: 02-03-2023 End: 02-03-[address] Kashmir Leong Work Phone: [facility] Work Phone: Start: 02-03-2023 End: 02-03-[address] Kashmir Leong Work Phone: [facility]-Outpatient Breast Imaging Start: 02-03-2023 End: 02-03-2023 Dr. Kashmir Leong Work Phone: [facility] Start: 01-28-2023 Non-patient / Non-visit Dr. Leela Leong Work Phone: [facility] Start: 01-28-2023 End: 01-28-[address] Kashmir Leong Work Phone: [facility] Work Phone: Start: 01-28-2023 End: 01-28-[address] Kashmir Leong Work Phone: [facility]Cardi[facility] Services Start: 01-28-2023 End: 01-28-2023 Dr. Kashmir Leong Work Phone: [facility] Start: 01-23-2023 End: 01-23-[address] Kashmir Leong Work Phone: [facility] Work Phone: Start: 01-23-2023 End: 01-23-[address] Kashmir Leong Work Phone: [facility]-Laboratory, Specimen Start: 01-23-2023 End: 01-23-2023 Dr. Kashmir Leong Work Phone: [facility]Laboratory, Specimen Start: 01-23-2023 End: 01-23-[address] Kashmir Leong Work Phone: [facility] Start: 01-23-2023 End: 01-23-2023 Dr. Kashmir Leong Work Phone: [facility] Start: 01-21-2023 End: 01-21-[address] Kashmir Leong Work Phone: [facility] Work Phone: Start: 01-21-2023 End: 01-21-[address] [facility] Start: 01-21-2023 End: 01-21-2023 Dr. Kashmir [facility]ong [facility] Start: 01-21-2023 End: 01-21-[address] Kashmir Leong Work Phone: [facility] Start: 01-21-2023 End: 01-21-2023 Dr. Kashmir Leong Work Phone: [facility] Start: 01-20-2023 End: 01-20-2023 Emergency department patient visit Dr. Kashmir Leong Work Phone: [facility]Emer[facility] Department Start: 01-20-2023 End: 01-20-2023 Dr. Kashmir Leong Work Phone: [facility]Emer[facility] Department Start: 01-17-2023 End: 01-17-[address] Kashmir Leong Work Phone: [facility] Start: 01-17-2023 End: 01-17-2023 Dr. Kashmir Leong Work Phone: [facility] Start: 01-14-2023 End: 01-15-2023 Emergency department patient visit Dr. Kashmir Leong Work Phone: [phone] [place] [address]-Emergency Department Start: 01-14-2023 End: 01-15-2023 Dr. Kashmir Leong Work Phone: [phone] [place] [address]-Emergency Department Start: 01-13-2023 Non-patient / Non-visit Dr. Leela Leong Work Phone: [facility] Start: 01-13-2023 Dr. Kashmir Leong Work Phone: [phone] [place] [address] Internal Medicine Start: 01-10-2023 End: 01-10-2023 Emergency department patient visit Dr. Kashmir Leong Work Phone: [phone] [place] [address]-Emergency Department Start: 01-10-2023 End: 01-10-2023 Dr. Kashmir Leong Work Phone: [phone] [place] [address]-Emergency Department Start: 01-04-2023 Non-patient / Non-visit Dr. Leela Leong Work Phone: [facility] Start: 01-04-2023 Dr. Kashmir Leong Work Phone: [facility] Start: 01-03-2023 Non-patient / Non-visit Dr. Leela Leong Work Phone: [facility] Start: 01-03-2023 Dr. Kashmir Leong Work Phone: [facility] Start: 01-03-2023 Non-patient / Non-visit Dr. Leela Leong Work Phone: [facility] Start: 01-03-2023 Dr. Kashmir Leong Work Phone: [facility] Start: 01-02-2023 Non-patient / Non-visit Dr. Leela Leong Work Phone: [facility] Start: 01-02-2023 Dr. Kashmir Leong Work Phone: [facility] Start: 01-02-2023 Non-patient / Non-visit Dr. Leela Leong Work Phone: [facility] Start: 01-02-2023 Dr. Kashmir Leong Work Phone: [facility] Start: 01-01-2023 Non-patient / Non-visit Dr. Leela Leong Work Phone: [facility] Start: 01-01-2023 Dr. Kashmir Leong Work Phone: [phone] [place] [address] Start: 01-01-2023 Non-patient / Non-visit Dr. Leela Leong Work Phone: [facility] Start: 01-01-2023 Dr. Kashmir Leong Work Phone: [facility] Start: 12-31-2022 Non-patient / Non-visit Dr. Leela Leong Work Phone: [facility] Start: 12-31-2022 Dr. Kashmir Leong Work Phone: [facility] Start: 12-31-2022 Non-patient / Non-visit Dr. Leela Leong Work Phone: [facility] Start: 12-31-2022 Dr. Kashmir Leong Work Phone: [facility] Start: 12-30-2022 Non-patient / Non-visit Dr. Leela Leong Work Phone: [facility] Start: 12-30-2022 Dr. Kashmir Leong Work Phone: [facility] Start: 12-30-2022 End: 01-04-2023 Evaluation and management of inpatient Dr. Kashmir Leong Work Phone: [facility] Start: 12-30-2022 End: 01-04-2023 Dr. Kashmir Leong Work Phone: [facility] Start: 12-28-2022 End: 12-28-2022 Emergency department patient [facility] Start: 12-28-2022 End: 12-28-2022 Dr. Kashmir [facility] Start: 12-27-2022 End: 12-27-[address] Kashmir Leong Work Phone: [facility] Start: 12-27-2022 End: 12-27-2022 Dr. Kashmir [facility] Start: 12-24-2022 End: 12-24-[address] Kashmir Leong Work Phone: [facility] Start: 12-24-2022 End: 12-24-2022 Dr. Kashmir Leong Work Phone: [facility] Start: 12-06-2022 End: 12-06-2022 Patient encounter procedure Thao Pineda APRN.REDIPPER Work Phone: [facility] Comment on above: Essential hypertensi on, benign (Primary Dx) Start: 11-08-2022 Telephone encounter Thao stoddard APRN.REDIPPER Work Phone: [facility] Comment on above: Results Start: 11-06-2022 Telephone encounter Thao stoddard APRN.REDIPPER Work Phone: [facility] Comment on above: Results Start: 11-04-2022 End: 11-04-2022 Patient encounter procedure Thao Pineda APRN.REDIPPER Work Phone: [facility] Comment on above: Chronic low back raf n with left-sided sciatica, unspecified back pain laterality (Primary Dx); Essential hypertension, benign; Acquired hypothyroidism; Crohn's disease involving terminal ileum (HCC); Mixed hyperlipidemia; Hypokalemia Start: 11-01-2022 Refill Maria Del Carmen Leong MD Work Phone: [address] [place] [address] Comment on above: Refill Request Start: 08-15-2022 Refill Maria Del Carmen Leong MD Work Phone: [facility] Comment on above: Refill Request Start: 07-19-2022 Refill Sena Peña APRN.REDIPPER Work Phone: [facility] Comment on above: Refill Request Start: 07-19-2022 Telephone encounter Thao stoddard APRN.REDIPPER Work Phone: [facility] Comment on above: error Start: 06-17-2022 Telephone encounter Kashmir Leong MD Work Phone: [facility] Comment on above: Results Start: 06-17-2022 End: 06-17-2022 Patient encounter procedure Maria Del Carmen Leong MD Work Phone: [facility] Comment on above: Periumbilical abdomi nal pain (Primary Dx); Acute constipation Start: 06-17-2022 End: 06-17-2022 Subsequent hospital visit by physician Katya [facility] Mackay Work Phone: Radiology Comment on above: Periumbilical abdomi nal pain [R10.33] Start: 06-15-2022 End: 06-15-2022 Patient encounter procedure Maria Del Carmen Leong MD Work Phone: [facility] Comment on above: Periumbilical abdomi nal pain (Primary Dx); Seasonal allergies; Acute constipation Patient Question; Re fill Request Start: 05-09-2022 End: 05-09-2022 Preprocedural examination done Lulú Bean MD Work Phone: [facility] Start: 05-09-2022 End: 05-09-2022 Subsequent hospital visit by physician Lulú Bean MD Work Phone: [facility] Comment on above: Crohn's disease invo lving terminal ileum (HCC) [K50.00] Start: 05-06-2022 End: 05-06-2022 Nursing evaluation of patient and report [place] Nurse Work Phone: [facility] [place] Comment on above: Need for vaccination (Primary Dx) Start: 04-23-2022 Telephone encounter Liz dunlap DIRECTOR REGULATORY AFFAIRS.REDIPPER Work Phone: [facility] [place] Comment on above: Results Start: 04-23-2022 End: 04-23-2022 Subsequent hospital visit by physician [facility] Work Phone: [facility] Comment on above: Left lower quadrant abdominal pain [R10.32] Right lower quadrant pain [R10.31] Start: 04-22-2022 End: 04-22-2022 Patient encounter procedure Liz Bean DIRECTOR REGULATORY AFFAIRS.REDIPPER Work Phone: [facility] [place] Comment on above: Left lower quadrant abdominal pain (Primary Dx); RLQ abdominal pain; Pelvic pain; Vaginal itching Start: 04-22-2022 Telephone encounter Thao stoddard DIRECTOR REGULATORY AFFAIRS.REDIPPER Work Phone: [facility] [place] Comment on above: Orders Start: 04-17-2022 Refill Sena Peña DIRECTOR REGULATORY AFFAIRS.REDIPPER Work Phone: [facility] [place] Comment on above: Refill Request Start: 04-03-2022 End: 04-03-2022 Subsequent hospital visit by physician [facility] Work Phone: Molecular Imaging Comment on above: Early satiety [R68.8 1] Start: 03-26-2022 ambulatory Jovana Valladares PA-C Work Phone: [facility] [place] Comment on above: Isaac rahman Start: 03-19-2022 Refill Briana Alonzo APR N.REDIPPER Work Phone: Gastroenterology Comment on above: Refill Request Start: 03-11-2022 End: 03-11-2022 Patient encounter procedure Jovana Valladares PA-C Work Phone: [facility] [place] Comment on above: Crohn's disease invo lving terminal ileum (HCC) (Primary Dx); Sigmoid diverticulitis; Chronic antral gastritis; Early satiety; Nausea; Skin exam, screening for cancer Start: 03-08-2022 Telephone encounter Thao stoddard APRN.REDIPPER Work Phone: [facility] Comment on above: Results Start: 03-06-2022 End: 03-06-2022 Patient encounter procedure Maria Del Carmen Leong MD Work Phone: [facility] Comment on above: Diverticulitis (Prim gita Dx); Crohn's disease involving terminal ileum (HCC); Acquired hypothyroidism; Essential hypertension, benign; Type 2 diabetes mellitus without retinopathy (HCC) Start: 02-28-2022 Telephone encounter Kashmir Leong MD Work Phone: [facility] Comment on above: Results (breast ultr asound) Start: 02-27-2022 End: 02-27-2022 Subsequent hospital visit by physician Us [facility] Work Phone: Radiology Comment on above: Abnormal mammogram [ R92.8] Start: 02-27-2022 Telephone encounter Thao stoddard APRN.CNP Work Phone: [facility] Comment on above: Results Start: 01-24-2022 End: 01-24-2022 Subsequent hospital visit by physician Screen Mammo [facility] Mammogram Comment on above: Canceled (Pt cx: Res cheduled) Start: 01-23-2022 Telephone encounter Mari cabrera APRN.CNP Work Phone: OB/Gynecology Comment on above: Opened In Error Start: 01-22-2022 Documentation procedure Mammog vonnie Coordinator [facility] Start: 01-22-2022 Letter encounter Mammography Coordinator [facility] Department Start: 01-22-2022 End: 01-22-2022 Patient encounter procedure Mari Turner APRN.CNP Work Phone: OB/Gynecology Comment on above: Encounter for gyneco logical examination (general) (routine) without abnormal findings (Primary Dx); Encounter for screening mammogram for breast cancer Start: 01-22-2022 End: 01-22-2022 Patient encounter status Mari Copelandsolo HUNTREDIPPER Work Phone: OB/Gynecology Start: 01-22-2022 End: 01-22-2022 Subsequent hospital visit by physician Screen Mammo [facility] Comment on above: Encounter for screen ing mammogram for breast cancer [Z12.31] Start: 08-25-2020 End: 08-25-2020 Subsequent hospital visit by physician Xr [facility] [place] Work Phone: Radiology Comment on above: Acute right ankle pa in [M25.571] Start: 01-20-2018 Ambulatory CORKYMARK TrevSoheila [facility] Start: 01-01-[address] [facility] Procedures Date Procedure Procedure Detail Performing Clinician Start: 06-13-2025 X-ray of chest, PA a nd lateral views Dr. Andreas Buenrostro MD Work Phone: Start: 06-13-[address] Andreas Buenrostro MD Work Phone: Start: 04-22-2025 Arthrocentesis aspir &/inj major jt/bursa w/o us Kelin Conrad PA-C Work Phone: Start: 04-08-2025 Plain X-ray abdomen Dr. Andreas Buenrostro MD Work Phone: Start: 02-26-2024 Screening mammography Alyce Buenrostro Work Phone: Start: 11-17-[address] Andreas Buenrostro Work Phone: Start: 07-30-2023 Diagnostic radiograp hy of abdomen Dr. Kashmir Leong Work Phone: Start: 07-29-[address] Kashmir Leong Work Phone: Start: 04-02-[address] Godwin Leong Work Phone: Start: 03-25-2023 Radiography of thora cic spine Dr. Kashmir Leong Work Phone: Start: 03-17-2023 Diagnostic radiograp hy of abdomen Dr. Kashmir Leong Work Phone: Start: 02-03-2023 Plain chest X-ray Dr. Jani Leong Work Phone: Start: 02-03-2023 Screening mammography Alyce Leong Work Phone: Start: 01-20-2023 Computed tomography of abdomen and pelvis with contrast Dr. Kashmir Leong Work Phone: Start: 01-10-2023 Computed tomography of abdomen and pelvis with contrast Dr. Kashmir Leong Work Phone: Start: 01-02-2023 MRI of abdomen with contrast Dr. Kashmir Leong Work Phone: Start: 12-30-2022 Diagnostic radiograp hy of abdomen Dr. Kashmir Leong Work Phone: Start: 12-28-2022 Computed tomography of abdomen and pelvis with intravenous contrast Dr. Kashmir Leong Work Phone: Start: 11-04-2022 Lipid 1996 panel - S pili or Plasma Maria Del Carmen Leong MD Work Phone: Start: 06-17-2022 Radiologic exam abdo men 1 view Maria Del Carmen Leong MD Work Phone: Start: 06-15-2022 Urnls dip stick/tabl et rgnt auto w/o microscopy Maria Del Carmen Leong MD Work Phone: Start: 04-23-2022 Ct abdomen & pelvis w/contrast material Lizmehrdad Bean DIRECTOR REGULATORY AFFAIRS.REDIPPER Work Phone: Start: 04-22-2022 Urnls dip stick/tabl et rgnt auto w/o microscopy Liz Bean DIRECTOR REGULATORY AFFAIRS.REDIPPER Work Phone: Start: 04-03-2022 Gastric emptying jovany ging study Jovana Jacquelyn RODRÍGUEZ Work Phone: Start: 02-27-2022 Us breast uni real t alejandra with image limited Thao Pineda DIRECTOR REGULATORY AFFAIRS.REDIPPER Work Phone: Start: 01-24-2022 End: 01-24-2022 Screening mammography bi 2-view breast inc cad Mari Turner DIRECTOR REGULATORY AFFAIRS.REDIPPER Work Phone: Start: 01-22-2022 End: 01-22-2022 Mammography Bulk Order Provider Start: 08-25-2020 Radex ankle complete minimum 3 views Maria Del Carmen Leong MD Work Phone: Start: 05-22-2020 Colonoscopy Mari cabrera DIRECTOR REGULATORY AFFAIRS.REDIPPER Work Phone: Clostridium difficil e detection Dr. Kashmir Leong Work Phone: Clostridium difficil e detection Dr. Kashmir Leong Work Phone: Clostridium difficil e detection Dr. Kashmir Leong Work Phone: Enteric Bacteriology Dr. Luna Leong Work Phone: Giardia Antigen (DONELL) Dr. Leela Leong Work Phone: Lactoferrin measurement Dr. Kashmir Leong Work Phone: Lactoferrin measurement Dr. Kashmir Leong Work Phone: Ova OR parasites identification Dr. Kashmir Leong Work Phone: Ova OR parasites identification Dr. Kashmir Leong Work Phone: Urine culture Dr. Kashmir Leong Work Phone: Urine culture Dr. Kashmir Leong Work Phone: Dr. Kashmir Leong Work Phone: Dr. Kashmir Leong Work Phone: Dr. Kashmir Leong Work Phone: Plan of Treatment Date Care Activity Detail Author Start: 2034 RSV Vaccine (1 - 1-d ose 75+ series) RSV Vaccine (1 - 1-dose 75+ series) [facility] Start: 11-04-2027 Lipid panel Lipid Screening [facility] Start: 11-05-2025 Diabetes Screening Diabetes Screenin g [facility] Start: 07-26-2025 [facility] Start: 06-27-2025 Influenza vaccination Influenz a Vaccine (Season Ended) [facility] Start: 06-13-2025 [facility] Start: 06-13-2025 [facility] Start: 05-22-2025 Colonoscopy COLONOSCOPY [facility] Start: 05-22-2025 COLORECTAL CANCER SCREENING COLORECTAL CANCER SCREENING [facility] Start: 05-22-2025 Screening for malign ant neoplasm of colon [facility] Start: 04-22-2025 End: 04-22-2025 Patient encounter procedure Radiology Comment on above: xray knees swollen and pa inful Start: 03-17-2025 PNEUMOCOCCAL (1 - PCV) PNEUMOCOCCAL (1 - PCV) [facility] Comment on above: Postponed from 05/07 (Postponed - Not Clinically Indicated) Start: 03-17-2025 PNEUMOCOCCAL (2 - PCV) PNEUMOCOCCAL (2 - PCV) [facility] Comment on above: Postponed from 07/27 (Postponed - Not Clinically Indicated) Start: 10-27-2024 Advance Directive Discussion Advance Directive Discussion [facility] Start: 10-27-2024 Medicare Advantage A nnual Wellness Visit Medicare Advantage Annual Wellness Visit [facility] Start: 06-27-2024 Covid-19 Vaccine ( season) Covid-19 Vaccine ( season) [facility] Start: 06-27-2024 Influenza vaccination Influenza Vacc ine (#1) [facility] Start: 2024 Advance Directive Discussion Advance Directive Discussion [facility] Start: 12-06-2023 ANNUAL PCP TEAM FARMWORKER MACHINE VALENTE DISEASE VISIT ANNUAL PCP TEAM CHRONIC DISEASE VISIT [facility] Start: 12-06-2023 BP CONTROLLED (<130/80) BP CONTROLLE D (<130/80) [facility] Start: 11-17-2023 Protein measurement [facility] Start: 11-17-2023 In-vitro immunologic test [facility] Start: 11-17-[address] [facility] Start: 11-04-2023 ANNUAL PCP TEAM FARMWORKER MACHINE VALENTE DISEASE VISIT ANNUAL PCP TEAM CHRONIC DISEASE VISIT [facility] Start: 11-04-2023 Hepatitis B surface antibody level LDL CHOLESTEROL [facility] Start: 06-27-2023 Covid-19 Vaccine () Covid-19 Vaccine () [facility] Start: 06-27-2023 Influenza vaccination INFLUENZ A (Season Ended) [facility] Start: 06-17-2023 ANNUAL PCP TEAM FARMWORKER MACHINE VALENTE DISEASE VISIT ANNUAL PCP TEAM CHRONIC DISEASE VISIT [facility] Start: 06-15-2023 ANNUAL PCP TEAM FARMWORKER MACHINE VALENTE DISEASE VISIT ANNUAL PCP TEAM CHRONIC DISEASE VISIT [facility] Start: 05-05-2023 Hemoglobin A1c/Hemoglobin.total in Blood HBA1C [facility] Start: 04-22-2023 ANNUAL PCP TEAM FARMWORKER MACHINE VALENTE DISEASE VISIT ANNUAL PCP TEAM CHRONIC DISEASE VISIT [facility] Start: 04-15-2023 Iv infusion therapy prophylaxis/dx ea hour THER/PROPH/DIAG IV INF [facility] Start: 04-15-2023 Iv infusion therapy/prophylaxis /dx 1st to 1 hr THER/PROPH/DIAG IV INF [facility] Start: 04-15-2023 SHINGRIX VACCINE (2 of 2) RIVERA GRIX VACCINE (2 of 2) [facility] Start: 04-04-2023 ANNUAL PCP TEAM FARMWORKER MACHINE VALENTE DISEASE VISIT ANNUAL PCP TEAM CHRONIC DISEASE VISIT [facility] Start: 04-04-2023 COVID-19 VACCINE (#1) COVID-19 VACCI NE (#1) [facility] Comment on above: Postponed from 05/07 (Declined at this time) Postponed from 11/07 (Declined at this time) Start: 04-04-2023 MENINGOCOCCAL B: Con stoker installer based on risk (1 of 4 - Increased Risk Bexsero 2-dose series) MENINGOCOCCAL B: Consider based on risk (1 of 4 - Increased Risk Bexsero 2-dose series) [facility] Comment on above: Postponed from 05/07 (Declined at this time) Start: 04-04-2023 MMR (1 of 2 - Risk 2 -dose series) MMR (1 of 2 - Risk 2-dose series) [facility] Comment on above: Postponed from 05/07 (Declined at this time) Start: 04-04-2023 SHINGRIX VACCINE (1 of 2) RIVERA GRIX VACCINE (1 of 2) [facility] Comment on above: Postponed from 05/07 (Declined at this time) Start: 04-02-2023 Patient discharge [facility] Start: 03-06-2023 ANNUAL PCP TEAM FARMWORKER MACHINE VALENTE DISEASE VISIT ANNUAL PCP TEAM CHRONIC DISEASE VISIT [facility] Start: 03-06-2023 Hepatitis B screening URINE ALBUMIN:CREATININE RATIO [facility] Start: 03-06-2023 Hepatitis B surface antibody level LDL CHOLESTEROL [facility] Start: 01-24-2023 Mammography MAMMOGRAM [facility] Start: 01-24-2023 Screening for malign ant neoplasm of breast Mammogram Screening [facility] Start: 01-22-2023 Mammography MAMMOGRAM [facility] Start: 01-21-2023 Patient referral [facility] Work Phone: Start: 01-04-2023 Patient discharge [facility] Start: 12-30-2022 Following clinical p athway protocol [facility] Start: 12-30-2022 Assessment of risk o f venous thromboembolism [facility] Start: 12-30-2022 Insertion of cathete r into peripheral vein [facility] Start: 12-30-2022 Providing care accor ding to standard [facility] Start: 12-30-2022 Referral to gastroenterology service [facility] Start: 12-30-2022 Referral to occupati onal therapist [facility] Start: 12-30-2022 Referral to service [facility] Start: 12-30-2022 [facility] Start: 12-30-2022 Admission procedure [facility] Start: 12-30-2022 Enteric precautions [facility] Start: 12-28-2022 Emergency department visit moderate severity [facility] Start: 12-28-2022 Ther proph/dx njx iv push single/1st sbst/drug [facility] Start: 12-28-2022 Therapeutic injectio n iv push each new drug [facility] Start: 12-27-2022 Elastase, pancreatic (el-1), fecal; quantitative [facility] Start: 12-27-[address] [facility] Start: 12-27-2022 Protein measurement [facility] Start: 12-27-2022 [facility] Start: 12-27-2022 Celiac disease screen [facility] Start: 12-27-2022 Immunoglobulin measurement [facility] Start: 12-27-[address] [facility] Start: 12-27-[address] [facility] Start: 12-27-2022 [facility] Start: 11-04-2022 End: 01-04-2023 Comprehensive metabolic 2000 panel - Serum or Plasma [facility] Work Phone: Comment on above: Expected: 11/04/2022 , Expires: 01/04/2023 Start: 11-04-2022 End: 01-04-2023 Lipid 1996 panel - Serum or Plasma [facility] Work Phone: Comment on above: Expected: 11/04/2022 , Expires: 01/04/2023 Start: 10-06-2022 HEPATITIS A (3 of 3 - Hep A Twinrix risk 3-dose series) HEPATITIS A (3 of 3 - Hep A Twinrix risk 3-dose series) [facility] Start: 10-06-2022 HEPATITIS B (3 of 3 - Hep B Twinrix risk 3-dose series) HEPATITIS B (3 of 3 - Hep B Twinrix risk 3-dose series) [facility] Start: 09-06-2022 Hemoglobin A1c/Hemoglobin.total in Blood HBA1C [facility] Start: 08-08-2022 ANNUAL PCP TEAM FARMWORKER MACHINE VALENTE DISEASE VISIT ANNUAL PCP TEAM CHRONIC DISEASE VISIT [facility] Start: 08-08-2022 BP CONTROLLED (<130/80) BP CONTROLLE D (<130/80) [facility] Start: 08-08-2022 Urine microalbumin profile DTAP,TDAP ,TD (1 - Tdap) [facility] Comment on above: Postponed from 05/07 (Declined at this time) Start: 06-27-2022 Influenza vaccination INFLUENZA (#1) [facility] Start: 05-21-2022 3 comp foot exam completed DIABETIC FOOT EXAM [facility] Start: 05-21-2022 Hepatitis B surface antibody level LDL CHOLESTEROL [facility] Start: 05-02-2022 HEPATITIS A (2 of 3 - Hep A Twinrix risk 3-dose series) HEPATITIS A (2 of 3 - Hep A Twinrix risk 3-dose series) [facility] Start: 05-02-2022 HEPATITIS B (2 of 3 - Hep B Twinrix risk 3-dose series) HEPATITIS B (2 of 3 - Hep B Twinrix risk 3-dose series) [facility] Start: 04-22-2022 End: 06-22-2022 CBC W Auto Differential panel - Blood [facility] Work Phone: Comment on above: Expected: 04/22/2022 , Expires: 06/22/2022 Start: 04-22-2022 End: 06-22-2022 Comprehensive metabolic 2000 panel - Serum or Plasma [facility] Work Phone: Comment on above: Expected: 04/22/2022 , Expires: 06/22/2022 Start: 04-22-2022 End: 06-22-2022 Lipase [Enzymatic activity/volume] in Serum or Plasma [facility] Work Phone: Comment on above: Expected: 04/22/2022 , Expires: 06/22/2022 Start: 03-11-2022 End: 05-11-2022 CELIAC SCREEN WITH REFLEX [facility] Work Phone: Comment on above: Expected: 03/11/2022 , Expires: 05/11/2022 Start: 03-11-2022 End: 05-11-2022 HEPATITIS A ANTIBODY, IGG [facility] Work Phone: Comment on above: Expected: 03/11/2022 , Expires: 05/11/2022 Start: 03-11-2022 End: 05-11-2022 Hepatitis B virus core Ab [Presence] in Serum [facility] Work Phone: Comment on above: Expected: 03/11/2022 , Expires: 05/11/2022 Start: 03-11-2022 End: 05-11-2022 Hepatitis B virus surface Ab [Presence] in Serum by Immunoassay [facility] Work Phone: Comment on above: Expected: 03/11/2022 , Expires: 05/11/2022 Start: 03-11-2022 End: 05-11-2022 Hepatitis B virus surface Ab [Units/volume] in Serum [facility] Work Phone: Comment on above: Expected: 03/11/2022 , Expires: 05/11/2022 Start: 03-11-2022 End: 05-11-2022 VITAMIN B12 BLOOD [facility] Work Phone: Comment on above: Expected: 03/11/2022 , Expires: 05/11/2022 Start: 03-11-2022 End: 05-11-2022 VITAMIN D 25 HYDROXY [facility] Work Phone: Comment on above: Expected: 03/11/2022 , Expires: 05/11/2022 Start: 03-06-2022 End: 05-06-2022 ALBUMIN/CREAT RATIO RND UR [facility] Work Phone: Comment on above: Expected: 03/06/2022 , Expires: 05/06/2022 Start: 03-06-2022 End: 05-06-2022 Comprehensive metabolic 2000 panel - Serum or Plasma [facility] Work Phone: Comment on above: Expected: 03/06/2022 , Expires: 05/06/2022 Start: 03-06-2022 End: 05-06-2022 Hemoglobin A1c/Hemoglobin.total in Blood [facility] Work Phone: Comment on above: Expected: 03/06/2022 , Expires: 05/06/2022 Start: 03-06-2022 End: 05-06-2022 LIPID PANEL, NONFASTING [facility] Work Phone: Comment on above: Expected: 03/06/2022 , Expires: 05/06/2022 Start: 03-06-2022 End: 05-06-2022 Thyrotropin [Units/volume] in Serum or Plasma TSH BLD Lab Routine Acquired hypothyroidism Expected: 03/06/2022, Expires: 05/06/2022 [facility] Work Phone: Comment on above: Expected: 03/06/2022 , Expires: 05/06/2022 Start: 11-21-2021 Hemoglobin A1c/Hemoglobin.total in Blood HBA1C [facility] Start: 08-25-2021 Hepatitis B screening URINE ALBUMIN:CREATININE RATIO [facility] Start: 11-05-2019 Hepatitis C antibody , confirmatory test DILATED RETINAL EXAM [facility] Start: 2019 RSV Vaccine (1 - 1-d ose 60+ series) RSV Vaccine (1 - 1-dose 60+ series) [facility] Start: 2019 RSV Vaccine (1 - Ris k 60-74 years 1-dose series) RSV Vaccine (1 - Risk 60-74 years 1-dose series) [facility] Start: 04-22-2015 FECAL OCCULT BLOOD FECAL OCCULT BLOO D [facility] Start: 04-22-2015 Screening for malign ant neoplasm of colon Fecal Occult Blood [facility] Start: 2009 SHINGRIX VACCINE (1 of 2) RIVERA GRIX VACCINE (1 of 2) [facility] Start: 2004 COLOGUARD (FIT-DNA) COLOGUARD (FIT-D NA) [facility] Start: [address] COLONOGRAPHY [facility] Start: 2004 Screening for malign ant neoplasm of colon [facility] Start: 2004 SIGMOIDOSCOPY SIGMOIDOSCOPY [facility] Start: 1978 HEPATITIS B (1 of 3 - Risk 3-dose series) HEPATITIS B (1 of 3 - Risk 3-dose series) [facility] Start: 1978 Urine microalbumin profile [facility] Start: 1977 MMR (1 of 2 - Risk 2 -dose series) MMR (1 of 2 - Risk 2-dose series) [facility] Start: 1977 MMR Vaccine (1 of 2 - Risk 2-dose series) MMR Vaccine (1 of 2 - Risk 2-dose series) [facility] Start: 1969 Meningococcal B Vacc ine: Consider Based On Risk (1 of 4 - Increased Risk) Meningococcal B Vaccine: Consider Based On Risk (1 of 4 - Increased Risk) [facility] Start: 1969 MENINGOCOCCAL B: Con stoker installer based on risk (1 of 4 - Increased Risk Bexsero 2-dose series) MENINGOCOCCAL B: Consider based on risk (1 of 4 - Increased Risk Bexsero 2-dose series) [facility] Start: 1964 COVID-19 VACCINE (#1) COVID-19 VACCI NE (#1) [facility] Start: 1964 COVID-19 VACCINE (1) COVID-19 VACCIN E (1) [facility] Start: 1961 HEPATITIS A (1 of 2 - Risk 2-dose series) HEPATITIS A (1 of 2 - Risk 2-dose series) [facility] Albumin [Moles/volum e] in Serum or Plasma [facility] Albumin/Globulin ratio [facility] Antibody to lupus [place] protein measurement [facility] Antibody to SS-A measurement [facility] Bacteria identified in Urine by Culture URINE CULTURE Microbiology Routine Left lower quadrant abdominal pain RLQ abdominal pain Pelvic pain Ordered: 04/22/2022 [facility] [place] Work Phone: Comment on above: Ordered: 04/22/2022 Bacteria identified in Urine by Culture URINE CULTURE Microbiology Routine Periumbilical abdominal pain Ordered: 06/15/2022 [facility] [place] Work Phone: Comment on above: Ordered: 06/15/2022 Centromere protein B Ab [Units/volume] in Serum [facility] Chromatin Ab [Units/volume] in Serum or Plasma [facility] End: 03-11-2023 COLONOSCOPY DIAGNOSTIC COLONOSCOPY DIAGNOSTIC Endoscopy Routine Crohn's disease involving terminal ileum (HCC) Sigmoid diverticulitis 1 Occurrences starting 03/11/2022 until 03/11/2023 [facility] [place] Work Phone: Comment on above: 1 Occurrences starti ng 03/11/2022 until 03/11/2023 End: 05-09-2022 COLONOSCOPY DIAGNOSTIC COLONOSCOPY DIAGNOSTIC Endoscopy Routine Crohn's disease involving terminal ileum (HCC) Sigmoid diverticulitis 1 Occurrences starting 05/09/2022 until 05/09/2022 [facility] [place] Work Phone: Comment on above: 1 Occurrences starti ng 05/09/2022 until 05/09/2022 End: 05-22-2023 Ct abdomen & pelvis w/contrast material CT ABD/PEL W IVCON Radiology STAT Left lower quadrant abdominal pain RLQ abdominal pain Pelvic pain 1 Occurrences starting 04/22/2022 until 05/22/2023 [facility] [place] Work Phone: Comment on above: 1 Occurrences starti ng 04/22/2022 until 05/22/2023 End: 02-24-2026 DBT Breast - bilateral screening RADHA SCREENING W KRISTAL Radiology Routine Encounter for screening mammogram for breast cancer 1 Occurrences starting 01/25/2025 until 02/24/2026 [facility] [place] Work Phone: Comment on above: 1 Occurrences starti ng 01/25/2025 until 02/24/2026 DNA double strand Ab [Units/volume] in Serum [facility] Electrophoresis: [id number] [facility] Electrophoresis: saleem ma globulin [facility] End: 04-10-2023 Gastric emptying imaging study NM GASTRIC EMPTYING SOLID Radiology Routine Early satiety Nausea 1 Occurrences starting 03/11/2022 until 04/10/2023 [facility] [place] Work Phone: Comment on above: 1 Occurrences starti ng 03/11/2022 until 04/10/2023 Globulin measurement [facility] Hepatitis a & b vacc ine hepa-hepb adult im HEPA/HEPB VACCINE ADULT IM Immunization/Injection Routine Need for vaccination Ordered: 04/22/2022 [facility] [place] Work Phone: Comment on above: Ordered: 04/22/2022 IgA [Mass/volume] in Serum or Plasma [facility] IgE [Units/volume] i n Serum or Plasma [facility] IgG [Mass/volume] in Serum or Plasma [facility] IgM [Mass/volume] in Serum or Plasma [facility] Ruby-1 extractable nuc lear Ab [Units/volume] in Serum [facility] End: 04-03-2024 RADHA SCREENING RADHA SCREENING Radiology Routine Encounter for screening mammogram for breast cancer 1 Occurrences starting 03/05/2023 until 04/03/2024 [facility] [place] Work Phone: Comment on above: 1 Occurrences starti ng 03/05/2023 until 04/03/2024 Measurement of immunoglobulin A in serum specimen [facility] MG Breast - bilatera l Screening [facility] MG Breast - bilatera l Screening [facility] End: 03-26-2025 MG Breast Screening RADHA SCREENING Radiology Routine Encounter for screening mammogram for breast cancer 1 Occurrences starting 02/25/2024 until 03/26/2025 [facility] [place] Work Phone: Comment on above: 1 Occurrences starti ng 02/25/2024 until 03/26/2025 Mycobacterium tuberc ulosis tuberculin stimulated gamma interferon [Presence] in Blood [facility] Neutrophil cytoplasm ic Ab.classic [Units/volume] in Serum [facility] Ova and parasites identified in Unspecified specimen by Light microscopy [facility] Ova and parasites identified in Unspecified specimen by Light microscopy [facility] P-ANCA measurement [facility] Patient Education [facility] Work Phone: Patient referral [facility] Work Phone: Procedure [facility] Protein electrophore sis panel - Serum or Plasma [facility] Protein measurement [facility] SCL-70 extractable n uclear Ab [Units/volume] in Serum by Immunoassay [facility] End: 02-21-2023 Screening mammography bi 2-view breast inc cad RADHA SCREENING Radiology Routine Encounter for screening mammogram for breast cancer 1 Occurrences starting 01/22/2022 until 02/21/2023 [facility] [place] Work Phone: Comment on above: 1 Occurrences starti ng 01/22/2022 until 02/21/2023 Serum protein electrophoresis [facility] Garcia extractable nu clear Ab [Presence] in Serum [facility] Tissue transglutamin ase IgA Ab [Units/volume] in Serum [facility] UA DIP OB, URINE (POC) UA DIP OB , URINE (POC) Lab Routine Left lower quadrant abdominal pain RLQ abdominal pain Pelvic pain Ordered: 04/22/2022 [facility] [place] Work Phone: Comment on above: Ordered: 04/22/2022 Urinalysis complete panel - Urine URINALYSIS, WITH MICROSCOPIC Lab Routine Left lower quadrant abdominal pain RLQ abdominal pain Pelvic pain Ordered: 04/22/2022 [facility] [place] Work Phone: Comment on above: Ordered: 04/22/2022 US Carotid arteries [facility] End: 07-15-2023 XR ABDOMEN 1V SUPINE XR ABDOMEN 1V SUPINE Radiology Routine Periumbilical abdominal pain Acute constipation 1 Occurrences starting 06/15/2022 until 07/15/2023 [facility] [place] Work Phone: Comment on above: 1 Occurrences starti ng 06/15/2022 until 07/15/2023 End: 05-21-2026 XR Knee - bilateral 4 Views XR KNEE GENERAL 4V AP BOTH/PA BOTH/LAT/MERC BILATERAL Radiology Routine Pain in both knees, unspecified chronicity 1 Occurrences starting 04/21/2025 until 05/21/2026 [facility] Work Phone: Comment on above: 1 Occurrences starti ng 04/21/2025 until 05/21/2026 XR Knee - bilateral 4 Views XR KNEE GENERAL 4V AP BOTH/PA BOTH/LAT/MERC BILATERAL Radiology Routine Pain in both knees, unspecified chronicity 04/22/2025 9:40 AM EDT [facility] Work Phone: [facility] Immunizations Immunization Date Immunization Notes Care Provider [facility] 07-26-2025 Seasonal trivalent influenza vaccine, adjuvanted, preservative free Dr. Andreas Buenrostro MD Work Phone: [facility] 08-06-2024 Seasonal trivalent influenza vaccine, adjuvanted, preservative free Dr. Andreas Buenrostro MD Work Phone: [facility] 09-10-2023 hepatitis A and hepatitis B vaccine Dr. Andreas Buenrostro Work Phone: [facility] 07-09-2023 Influenza, injectabl e, Madin Alicja Canine Kidney, preservative free, quadrivalent Dr. Kashmir Leong Work Phone: [facility] 07-09-2023 influenza, injectabl e, quadrivalent, contains preservative Maria Del Carmen Leong MD Work Phone: [facility] 07-09-2023 influenza virus vaccine, unspecified formulation Xr Congers Work Phone: [facility] 04-23-2023 Pneumococcal Vaccine PCV20 (Prevnar 20) Dr. Kashmir Leong Work Phone: [facility] 04-23-[address] Kashmir Leong Work Phone: [facility] 03-20-2023 hepatitis A and hepatitis B vaccine Dr. Kashmir Leong Work Phone: [facility] 02-18-2023 hepatitis A and hepatitis B vaccine Dr. Kashmir Leong Work Phone: [facility] 02-18-2023 hepatitis B vaccine, adult dosage Maria Del Carmen Leong MD Work Phone: [facility] 02-18-2023 zoster vaccine recombinant Maria Del Carmen Leong MD Work Phone: [facility] 05-06-2022 hepatitis A and hepatitis B vaccine Nc Nurse Work Phone: [facility] Work Phone: 05-06-2022 hepatitis B vaccine, unspecified formulation Mi Nurse Work Phone: [facility] 04-04-2022 hepatitis A and hepatitis B vaccine Sena Peña APRN.REDIPPER Work Phone: [facility] 04-04-2022 hepatitis B vaccine, unspecified formulation Sena Peña APRN.REDIPPER Work Phone: [facility] 08-08-2021 influenza, injectabl e, quadrivalent, contains preservative Mari Turner APRN.REDIPPER Work Phone: [facility] 08-08-2021 influenza, injectabl e, quadrivalent, preservative free Dr. Kashmir Leong Work Phone: [facility] 08-08-2021 influenza, seasonal, injectable Dr. Kashmir Leong Work Phone: [facility] 06-27-2020 influenza, injectabl e, quadrivalent, preservative free Sena Peña APRN.REDIPPER Work Phone: [facility] Work Phone: 06-27-2020 influenza, seasonal, injectable Dr. Kashmir Leong Work Phone: [facility] 07-23-2019 Influenza, injectabl e, Madin [place] Canine Kidney, quadrivalent with preservative Sena Peña DIRECTOR REGULATORY AFFAIRS.REDIPPER Work Phone: [facility] Work Phone: 07-23-2019 Influenza, injectabl e, Madin Alicja Canine Kidney, preservative free, quadrivalent Dr. Kashmir Leong Work Phone: [facility] 07-10-2018 influenza, injectabl e, quadrivalent, preservative free Mari Turner DIRECTOR REGULATORY AFFAIRS.REDIPPER Work Phone: [facility] 07-10-2018 influenza, seasonal, injectable Dr. Kashmir Leong Work Phone: [facility] 07-25-2016 influenza, injectabl e, quadrivalent, contains preservative Mari Copelandhrie DIRECTOR REGULATORY AFFAIRS.REDIPPER Work Phone: [facility] 07-25-2016 influenza, injectabl e, quadrivalent, preservative free Dr. Kashmir Leong Work Phone: [facility] 07-25-2016 influenza, seasonal, injectable Dr. Kashmir Leong Work Phone: [facility] 07-12-2015 influenza, injectabl e, quadrivalent, preservative free Dr. Kashmir Leong Work Phone: [facility] 07-12-2015 influenza, seasonal, injectable Mari Turner DIRECTOR REGULATORY AFFAIRS.REDIPPER Work Phone: [facility] Work Phone: 07-12-2015 influenza, seasonal, injectable, preservative free Sena Peña DIRECTOR REGULATORY AFFAIRS.REDIPPER Work Phone: [facility] Work Phone: 07-12-2015 Seasonal, quadrivale nt, recombinant, injectable influenza vaccine, preservative free Dr. Kashmir Leong Work Phone: [facility] 07-27-[address] Kashmir Leong Work Phone: [facility] 07-27-2013 influenza virus vaccine, unspecified formulation Mari Turner DIRECTOR REGULATORY AFFAIRS.REDIPPER Work Phone: [facility] 07-27-2011 pneumococcal polysaccharide vaccine, 23 valent Mari Turner DIRECTOR REGULATORY AFFAIRS.REDIPPER Work Phone: [facility] 07-27-2011 pneumococcal vaccine , unspecified formulation Dr. Kashmir Leong Work Phone: [facility] 04-11-2010 pneumococcal polysaccharide vaccine, 23 valent Mari Turner DIRECTOR REGULATORY AFFAIRS.REDIPPER Work Phone: [facility] Work Phone: Payers Date Payer Category Payer Self-pay [id number] 2014 Medicaid [id number] 2014 Medicare [id number] 2014 Medicare [facility] MEDICARE [id number] 2014-Present [phone] [address] [place] [address] Medicare [id number] 2014 Medicare (Managed Care) [facility] MEDIC[facility] [id number] 2014 Unknown [id number] 2013 Medicaid [id number] 1994 Medicare [id number] Unknown Unknown [id number] Unknown [id number] Unknown [id number] Unknown [id number] Unknown [id number] Unknown [id number] 462 Unknown [id number] 462 Unknown [id number] Unknown [id number] 462 Unknown [id number] Unknown [id number] Unknown [id number] Social History Date Type Detail Facility Start: 01-22-2022 End: 06-13-2025 Tobacco smoking status NHIS Ex-smoker [facility] Work Phone: Start: 12-25-2009 End: 12-25-2021 History of tobacco use Current smoker [facility] Work Phone: Start: 10-01-2006 End: 12-25-2021 History of tobacco use Cigarette Smoker [facility] Work Phone: Start: 01-22-2022 End: 06-06-2023 Cigarettes smoked current (pack per day) - Reported 0.5 [facility] Start: 01-22-2022 End: 04-22-2025 Tobacco use and exposure Smokeless tobacco non-user [facility] Work Phone: Start: 01-22-2022 End: 04-22-2025 Alcohol intake Current non-drinker of alcohol (finding) [facility] Start: 05-04-2020 Tobacco Comment smokes a cigar ette occasionally [facility] Start: 1960 Sex Assigned At Not on file [facility] Start: 07-25-2020 End: 06-17-2022 Exposure to SARS-CoV-2 (event) Not sure [facility] Start: 1960 Sex Assigned At Female [facility] Start: 12-28-2022 End: 02-05-2024 Tobacco smoking status NHIS Unknown if ever smoked [facility] Start: 11-24-[address] [facility] Start: 11-24-2018 Spouse/ Signif icant Other [facility] Start: 12-06-2022 End: 06-06-2023 Tobacco use panel [facility] Adult Depression Screening Assessment 0 [facility] Start: 04-22-2022 Gender identity Identifies as female gender (finding) [facility] Start: 04-22-2022 Sexual orientation Heterosexual (fin ding) [facility] Start: 10-01-2006 Tobacco smoking stat us NHIS Occasional tobacco smoker [facility] Goals Date Patient Goal Desired Activity /State Functional Status Date Assessment Result Facility 01-04-2023 Functional status Ambulates;Up ad summer [facility] Work Phone: 02-17-2015 Do you have serious difficulty walking or climbing stairs No 02/17/2015 10:52 AM EDT Yary Lucero MA No [facility] 02-17-2015 Do you have difficul ty dressing or bathing No 02/17/2015 10:52 AM EDT Yary Lucero MA No [facility] 02-17-2015 Because of a physica l, mental, or emotional condition, do you have difficulty doing errands alone such as visiting a physician's office or shopping No 02/17/2015 10:52 AM EDT Yary Lucero MA No [facility] 02-17-2015 Are you deaf, or do you have serious difficulty hearing No 02/17/2015 10:50 AM DAWITT Yary Lucero MA No [facility] 02-17-2015 Are you blind, or do you have serious difficulty seeing, even when wearing glasses Yes 02/17/2015 10:50 AM DAWITT Yary Lucero MA Yes [facility] Mental Status Date Assessment Result Facility 06-13-2025 Cognitive function Voice/Name [facility] Work Phone: 04-15-2023 Cognitive function Voice/Name [facility] Work Phone: 04-02-2023 Cognitive function Follows Commands;Drows y [facility] Work Phone: 02-11-2023 Cognitive function Awake;Alert;A ppropriate; Follows Commands [facility] Work Phone: 02-03-2023 Cognitive function Voice/Name [facility] Work Phone: 01-04-2023 Cognitive function Voice/Name [facility] Work Phone: 02-17-2015 Because of a physica l, mental, or emotional condition, do you have serious difficulty concentrating, remembering, or making decisions No 02/17/2015 10:52 AM EDT Yary Lucero MA No [facility] Clinical Notes 12-08-2014 to 07-26-2025 Note Date & Type Note Facility 07-26-2025 Progress note [facility] 06-13-2025 Discharge summary [facility] 06-13-2025 Radiology Diagnostic study note [facility] Imaging Services [address] [place] [address] Chest PA and Lateral MR#: [id number] Acct: [id number] Name: ISAAC RAHMAN Rep #: [id number] : 1960 F 65 From: Yang Andersen MD PCP: Dr. Andreas Buenrostro MD Status: REG ER Study:Chest PA and Lateral Date of Exam: 06/13/25 Exam# [id number] Ordering Dr: Brown Card MD PROCEDURE: CHEST PA AND LATERAL 06/13/2025 REASON FOR EXAM: CHEST PAIN TECHNIQUE: CHEST PA AND LATERAL COMPARISON: None FINDINGS: Hardware: EKG electrodes are seen. Heart: The heart size is normal. Mediastinum: The mediastinal contour is unremarkable. Lungs: Hyperinflation. The lungs are clear. Bones: Degenerative changes are identified within the thoracic spine. RAD/Chest PA and Lateral IMPRESSION: NO ACUTE FINDINGS. Reading Location: [facility] CC: Dr. Andreas Buenrostro MD; Dr. Mirella Card MD ~ In Store Banker: Signed [facility] 06-13-2025 Discharge summary Note Date/Time June 13, 2025 4:29pm [facility] Medical Records Department [address] [place] [address] Emergency Department Summary 06/13/25 MR#: [id number] Acct: [id number] Name: ISAAC RAHMAN Rep #:[id number] : 1960 65 From: Mirella Card MD PCP: Dr. Andreas Buenrostro MD Status:REG ER Location: ED HPI History of Present Illness Chief Complaint: Chest Pain Narrative Narrative: Patient is a 65-year-old female presenting emergency department for chest pain. Patient has past medical history of hypertension, dyslipidemia, back problems and Crohn's disease. Patient states that it started on . States that it twinges of chest pain. She states they come and go and last few seconds. Reports that on it was after she was working in the garden and she had a twinge of pain between her shoulder blades. States that since then it has ranged from midsternal to right-sided twinges. Reports a mild pressure in her chest right now. Denies any fever, chills, cough, shortness of breath, lower extremity edema. Denies any vomiting. Reports some nausea but states this is not different from her baseline with her Crohn's disease. [facility] Medical History Panic attack Preoperative cardiovascular examination Abnormal EKG LINDY on CPAP Wears glasses Post-menopausal History of Clostridium difficile infection History of steroid therapy Thyroid disease Arthritis High cholesterol Back pain Injury of back Difficulty swallowing Difficulty chewing History of ulceration Diverticulosis History of Crohn's disease Gastric reflux Former smoker CPAP (continuous positive airway pressure) dependence Shortness of breath on exertion History of stress test History of echocardiogram Hypertension Diarrhea Urinary frequency Hematuria Thyroid disease Pneumonia Osteopenia Neuropathy Gallstones H/O emotional problems Hx: UTI (urinary tract infection) Bone fracture Back problem Allergies Liver lesion Clostridioides difficile infection Sleep apnea PTSD (post-traumatic stress disorder) Lumbago Internal hemorrhoids Hypothyroidism Esophageal reflux Diverticulitis Depression Unstable angina Dyslipidemia Essential (primary) hypertension Home Medications ?Medication ?Instructions ?Recorded ?Last Taken ?Type lidocaine 4 % topical patch 1 patch topical DAILY PRN Pain 01/13/23 Unknown History Super Collagen & Vitamin C 1 tab PO DAILY 01/21/23 Unk nown History spironolactone 25 mg tablet 25 mg PO PRN WATER RETENTI ON 02/17/23 Unknown History loratadine 10 mg tablet 10 mg PO DAILY PRN Inflammat ion 01/01/24 Unknown Rx Held on 04/27/24. #90 tabs Instructions: Order Changed Lactobacillus rhamnosus GG 10 1 cap PO DAILY #90 caps 03/11/24 Unknown Rx billion cell capsule (Culturelle) inulin 2 gram chewable tablet g PO 08/06/24 Unknown Hi story (Fiber Gummies) aspirin 81 mg tablet,delayed 81 mg PO DAILY #90 tabs 1 Unknown Rx release (Ecotrin Low Strength) sennosides 8.6 mg-docusate sodium 1 tab-cap PO BID PRN 09/01/24 Unknown History 50 mg capsule (Senna Plus) dicyclomine 20 mg tablet 20 mg PO BID PRN abdominal 0 12/01/24 Unknown Rx discomfort #60 tabs pantoprazole 40 mg tablet,delayed 40 mg PO DAILY #90 T ABLETS 12/01/24 Unknown Rx release alendronate 70 mg tablet 70 mg PO QWEEK #12 tabs 11/20 Unknown Rx atorvastatin 40 mg tablet 40 mg PO QHS CHOLESTEROL #90 tabs 01/25/25 Unknown Rx calcium 600 mg (as 1 tab PO DAILY #90 tabs 11/20 Unknown Rx carbonate)-vitamin D3 5 mcg (200 unit) tablet levothyroxine 75 mcg tablet 75 mcg PO DAILY #90 TABLET S 01/25/25 Unknown Rx magnesium oxide 400 mg PO QDAY #90 caps 11/20 Unknown Rx multivitamin with folic acid 400 1 tab PO DAILY #90 TA BLETS 01/25/25 Unknown Rx mcg tablet (One Daily Essential) ustekinumab 90 mg/mL subcutaneous 90 mg subcut Q4W #1 mL 02/03/25 Unknown Rx syringe (Stelara) linaclotide 290 mcg capsule 290 mcg PO DAILY #90 caps 03/18/25 Unknown Rx (Linzess) fluticasone propionate 50 2 spray intranasal DAILY PRN 03/28/25 Unknown Rx mcg/actuation nasal ALLERGIES #16 grams spray,suspension atenolol 25 mg tablet 25 mg PO DAILY #90 TABLETS 0 04/18/25 Unknown Rx lisinopril 40 mg tablet 40 mg PO DAILY #90 tabs 03/28 01/18 Unknown Rx ondansetron 4 mg disintegrating 4 mg PO Q8H PRN PRN Na usea #30 tabs 05/24/25 Unknown Rx tablet clonazepam 0.5 mg tablet 0.5 mg PO QDAY PRN panic att ack 06/13/25 Unknown History Allergy/AdvReac Type Severity Reaction Status Date / Time Penicillins (PCN) Allergy Unknown Verified 06/13/25 12:29 Tetracyclines AdvReac Nausea Verified 06/13/25 12:29 Family History Grandmother Bowel disease Myocardial infarction Hypertension Aunt Bowel disease Ovarian cancer Mother Diabetes High cholesterol CVA (cerebral vascular accident) Father Diabetes Heart disease Thyroid disorder Hypertension High cholesterol Myocardial infarction Grandmother Cancer pancreatic Brother Heart disease Other Anemia Colon cancer Surgical History History of cardiac catheterization H/O wrist surgery [place] teeth extracted Previous back surgery History of cholecystectomy History of hysterectomy Hx of section Social History household members: none current occupational status: disabled current occupation: multiple jobs - work related injury Smoking Status: Former smoker quit date: 10/27/21 pack-years: 3 alcohol intake: former substance use type: former substance user Date of last use: marijuana 09/2022 what type of physical activity do you participate in: none seatbelt use: always do you feel safe at home: Yes ROS ROS ED ROS Narrative See HPI EXAM Physical Exam Narrative Exam Narrative: Vital signs: Reviewed General: Alert and oriented. No acute distress HEENT: Head is normocephalic and atraumatic, sinuses nontender, pupils equal round and reactive. Nares are patent. Oropharynx and throat exams normal. Neck: Supple without lymphadenopathy nontender Cardiovascular: Regular rate and rhythm, no murmurs. No rubs or gallops. Normal S1 and S2 Respiratory: Clear to auscultation bilaterally. No wheezes, rales, rhonchi Abdominal: Soft and nontender. Normal bowel sounds. No guarding or rebound. Nonsurgical abdomen Extremities: No tenderness. No bruising. Normal range of motion. Normal sensation. Skin: No rash or redness. Neurological: Cranial nerves II through XII are grossly intact. Normal strengthand sensation. Normal cerebellar function The rest of the physical exam is unremarkable Const Vital Signs: 06/13/25 12:28 06/13/25 12:29 06/13/25 13:23 Temperature 97.5 F L Temperature Source Temporal Pulse Rate 83 63 Respiratory Rate 19 H 16 Blood Pressure 198/81 H Blood Pressure Mean 120 Pulse Ox 99 95 Oxygen Delivery Method Room Air Room Air Room Air 06/13/25 13:28 06/13/25 14:00 06/13/25 15:15 Temperature Temperature Source Pulse Rate 51 L 53 L Respiratory Rate 10 L 17 Blood Pressure 200/77 H 161/58 H 160/71 H Blood Pressure Mean 118 92 100 Pulse Ox 94 100 100 Oxygen Delivery Method Room Air Heart Score History: Slightly/Non-Suspicious ECG: Normal Age: >/= 65 years Risk Factors: 1 or 2 Risk Factors Troponin: </= Normal Limit Score: 3 MDM MDM MDM Narrative Medical decision making narrative: Patient is a 65-year-old female presenting to the emergency department for intermittent chest pain. Patient was seen and examined. Vitals are stable. Patient resting bed comfortably no acute distress. EKG shows sinus bradycardia with first-degree AV block. No ischemic changes noted. CBC shows very mild leukocytosis of 12.1. Normal hemoglobin. BMP with no significant normalities. Initial troponin below 6, reflex also below 6. Chest x-ray reviewed by myself and shows no opacities, pneumothorax. Chest x-ray read by radiology shows no acute radiographic abnormalities. Low risk Heart Score. Patient is stable for outpatient management. She was updated on the findings. Patient discharged from the Emergency Department. I do not feel that the patient's evaluation reveals any acute reason for admission at this time. I instructed them to either follow-up with their primary care physician or promptly return to the Emergency Department for reevaluation should symptoms worsen or new symptoms develop. I explained what symptoms would indicate the need to return to the emergency department. Shared decision making was used. Thepatient voiced understanding of the treatment plan and is agreeable with it. Clinical impression Chest pain History & Record Review Discussion w/independent historian: Patient Lab Data Attestation: I reviewed the patient's lab results. Labs: Laboratory Results - last 24 hr 06/13/25 06/13/25 06/13/25 12:54 12:54 14:05 WBC Cancelled 12.1 H Corrected WBC Cancelled RBC Cancelled 4.42 Hgb Cancelled 13.9 Hct Cancelled 40.5 MCV Cancelled 91.6 MCH Cancelled 31.4 MCHC Cancelled 34.3 RDW Std Deviation Cancelled 40.1 RDW Coeff of Jessica Cancelled 11.9 Plt Count Cancelled 246 MPV Cancelled 9.6 Immature Gran % (Auto) Cancelled 0.200 Neut % (Auto) Cancelled 60.8 Lymph % (Auto) Cancelled 31.6 Ray % (Auto) Cancelled 5.3 Eos % (Auto) Cancelled 1.8 Baso % (Auto) Cancelled 0.3 Absolute Neuts (auto) Cancelled 7.4 Absolute Lymphs (auto) Cancelled 3.82 Total Counted Cancelled Neutrophils % (Manual) Cancelled Band Neutrophils % Cancelled Lymphocytes % (Manual) Cancelled Monocytes % (Manual) Cancelled Eosinophils % (Manual) Cancelled Basophils % (Manual) Cancelled Metamyelocytes % Cancelled Myelocytes % Cancelled Promyelocytes % Cancelled Blast Cells % Cancelled Plasma Cell % (Manual) Cancelled Other Cells % Cancelled Nucleated RBC % Cancelled 0 Nucleated RBCs/100 WBC Cancelled Differential Comment Cancelled Diff Path Review Cancelled Hypersegmented Neuts Cancelled Atypical Lymphocytes Cancelled Reactive Lymphocytes Cancelled Smudge Cells Cancelled Toxic Granulation Cancelled Toxic Vacuolation Cancelled Dohle Bodies Cancelled Tanja Rods Cancelled Platelet Estimate Cancelled Plt Morphology Comment Cancelled RBC Morphology Cancelled Cancelled Polychromasia Cancelled Hypochromasia Cancelled Basophilic Stippling Cancelled Anisocytosis Cancelled Microcytosis Cancelled Macrocytosis Cancelled Spherocytes Cancelled Sickle Cells Cancelled Target Cells Cancelled Tear Drop Cells Cancelled Ovalocytes Cancelled Stomatocytes Cancelled Adames-Tinsman Bodies Cancelled Alexander Cells Cancelled Bite Cells Cancelled Crenated Cell Cancelled Acanthocytes (Spur) Cancelled Rouleaux Cancelled Schistocytes Cancelled Sodium 141 Potassium 3.9 Chloride 105 Carbon Dioxide 21.9 Anion Gap 13 BUN 12 Creatinine 0.64 L Estim Creat Clear Calc 62.31 Est GFR (MDRD) Non-Af 97 BUN/Creatinine Ratio 19.1 Glucose 93 Calcium 9.5 Troponin T High Sens < 6 Troponin T Hi Sens 2 Hr 06/13/25 15:30 WBC Corrected WBC RBC Hgb Hct MCV MCH MCHC RDW Std Deviation RDW Coeff of Jessica Plt Count MPV Immature Gran % (Auto) Neut % (Auto) Lymph % (Auto) Ray % (Auto) Eos % (Auto) Baso % (Auto) Absolute Neuts (auto) Absolute Lymphs (auto) Total Counted Neutrophils % (Manual) Band Neutrophils % Lymphocytes % (Manual) Monocytes % (Manual) Eosinophils % (Manual) Basophils % (Manual) Metamyelocytes % Myelocytes % Promyelocytes % Blast Cells % Plasma Cell % (Manual) Other Cells % Nucleated RBC % Nucleated RBCs/100 WBC Differential Comment Diff Path Review Hypersegmented Neuts Atypical Lymphocytes Reactive Lymphocytes Smudge Cells Toxic Granulation Toxic Vacuolation Dohle Bodies Tanja Rods Platelet Estimate Plt Morphology Comment RBC Morphology Polychromasia Hypochromasia Basophilic Stippling Anisocytosis Microcytosis Macrocytosis Spherocytes Sickle Cells Target Cells Tear Drop Cells Ovalocytes Stomatocytes Adames-Tinsman Bodies Alexander Cells Bite Cells Crenated Cell Acanthocytes (Spur) Rouleaux Schistocytes Sodium Potassium Chloride Carbon Dioxide Anion Gap BUN Creatinine Estim Creat Clear Calc Est GFR (MDRD) Non-Af BUN/Creatinine Ratio Glucose Calcium Troponin T High Sens Troponin T Hi Sens 2 Hr < 6 Radiography Chest X-Ray - ED: Read by ED Physician, Normal, No Acute Disease and No Infiltrates Diagnostic Testing: Clinical Impression(s) from Imaging Studies Chest X-Ray 06/13/25 13:50 IMPRESSION: NO ACUTE FINDINGS. Reading Location: [facility] Rhythm Strip Rhythm Strip: Sinus Rhythm Rate: 56 Ectopy: None Discharge Plan Triage Chief Complaint: Chest Pain ED Provider: Mirella Card Dx/Rx/DC Orders Instructions: ED Chest Pain, Uncertain Cause Prescriptions: No Action spironolactone 25 mg tablet 25 mg PO PRN Super Collagen & Vitamin C 1 tab PO DAILY lidocaine 4 % adhesive patch,medicated 1 patch topical DAILY PRN (Reason: Pain) Fiber Gummies 2 gram tablet,chewable PO Senna Plus 8.6-50 mg capsule 1 tab-cap PO BID PRN alendronate 70 mg tablet 70 mg PO QWEEK Qty: 12 1RF atorvastatin 40 mg tablet 40 mg PO QHS Qty: 90 1RF calcium carbonate-vitamin D3 600 mg-5 mcg (200 unit) tablet 1 tab PO DAILY Qty: 90 1RF levothyroxine 75 mcg tablet 75 mcg PO DAILY Qty: 90 1RF magnesium oxide 400 mg magnesium capsule 400 mg PO QDAY Qty: 90 1RF multivitamin with folic acid [One Daily Essential] 400 mcg tablet 1 tab PO DAILY Qty: 90 1RF clonazepam 0.5 mg tablet 0.5 mg PO QDAY PRN (Reason: panic attack) loratadine 10 mg tablet 10 mg PO DAILY PRN (Reason: Inflammation) Qty: 90 1RF Culturelle 10 billion cell capsule 1 cap PO DAILY Qty: 90 3RF aspirin [Ecotrin Low Strength] 81 mg tablet,delayed release (DR/EC) 81 mg PO DAILY Qty: 90 1RF pantoprazole 40 mg tablet,delayed release (DR/EC) 40 mg PO DAILY Qty: 90 1RF dicyclomine 20 mg tablet 20 mg PO BID PRN (Reason: abdominal discomfort) Qty: 60 0RF Stelara 90 mg/mL syringe 90 mg subcut Q4W Qty: 1 11RF Linzess 290 mcg capsule 290 mcg PO DAILY Qty: 90 2RF fluticasone propionate 50 mcg/actuation spray,suspension 2 spray INTRANASAL DAILY PRN (Reason: ALLERGIES) Qty: 16 2RF atenolol 25 mg tablet 25 mg PO DAILY Qty: 90 1RF Rx Instructions: prn per pt lisinopril 40 mg tablet 40 mg PO DAILY Qty: 90 1RF ondansetron 4 mg tablet,disintegrating 4 mg PO Q8H PRN PRN (Reason: Nausea) Qty: 30 2RF Primary Care Provider: Andreas Buenrostro Referrals: Andreas Buenrostro MD [Primary Care Provider] - 2 Days Activity Restrictions/Additional Instructions: Your evaluation in the Emergency Department did not reveal any acute reason for admission. However, I want to emphasize that you may be early in the course of adisease process or illness even if it is not present. For this reason you shouldfollow-up within 24 hours for reevaluation with either your primary care physician or if necessary back here in the Emergency Department. You should return to the Emergency Department immediately if your symptoms worsen or new symptoms develop. Print Language: Wallisian Disposition Disposition: Home, Self Care What to do if you have Problems For any increased pain, shortness of breath, bleeding, nausea or vomiting, chestpain, or any unexpected problems, contact your Primary Care Provider. Call [facility] ([phone]) or report to the closest Emergency Room. Call 911 if necessary. 06/13/25 [id number] <Electronically signed by Mirella Card MD> Cosigner Signature (if applicable): CC: Dr. Andreas Buenrostro MD ~ Signed [facility] Work Phone: 1(239) 553-127906-27-2025 NoteHNO ID: [id number] Author: KELIN CONRAD PA-C Service: ? Author Type: Physician Wheat Washer Type: Progress Notes Filed: 04/22/2025 10:48 Note Text: Kelin Conrad PA-C Department of Orthopaedics [facility] [address] [place] [address] Dept: [phone] Dept April 22, 2025 CHIEF COMPLAINT: Pain of the Left Knee and Pain of the Right Knee Bilateral Knee Pain and Swelling/Osteoarthritis: - Onset of increased pain and swelling in bilateral knees x2-3 weeks. - Describes knees as acting up and swollen. - Aggravated by prolonged standing and activity. - Reports a sensation of something slip in the left knee when exiting her vehicle, nearly causing a fall. - Has not had knee injections since 2019, which previously provided significant relief. - Denies current use of knee braces; has used Spandex braces in the past with some benefit. - Has tried Voltaren gel with some relief. Osteoporosis: - Diagnosed with osteoporosis. - Currently weaning off prednisone for Crohn's due to concerns about bone density. Crohn's Disease: - Diagnosed with Crohn's disease, managed with Stelara. - Recent flare-up requiring hospitalization for 6 days. - Currently weaning off prednisone. - Reports strictures and narrowing of the colon. - History of C. diff infection. - Follow-up with roving weight gauger Dr. Bull scheduled for May. Social History: - Significant other has bladder cancer, requiring frequent trips to [facility] for treatment. - Recently lost her mother and has a history of losing children. - Attends therapy regularly. - Desires to stay mobile to care for her significant other and maintain her garden. ASSESSMENT: M17.0 Primary osteoarthritis of knees, bilateral PLAN: 1. Primary osteoarthritis of knees, bilateral (M17.0) - Bilateral knee osteoarthritis confirmed on X-rays; no significant progression compared to 2020 imaging. - Administered bilateral intra-articular corticosteroid injections. - Discussed use of topical analgesics such as Voltaren and Aspercreme for additional pain management. - Fitted with a hinged knee brace for the left knee to provide support and reduce strain. - Advised to monitor symptoms and return for repeat injections if pain recurs, ensuring a minimum interval of 91 days between injections. Ms. Isaac Rahman was advised as to contrast therapies and/or to take analgesics/anti-inflammatories as needed and all contraindications were reviewed. OBJECTIVE: Ms. Isaac Rahman is a pleasant 64 year old in no apparent distress. Gen:There were no vitals taken for this visit. nl development, obese, no deformities ENT: Normocephalic, normal hearing, moist mucosa CV: Pulses:DP/PT= 2+ and symmetric, capillary refill < 2 secs, no peripheral edema/varicosities Skin: no rash, bruising or lesions. Good turgor. Psych: cooperative and appropriate, alert and oriented x 3, good mood and affect. Musculoskeletal: KNEE EXAM: Left: Alignment: Neutral Range of motion is lacking a few degrees secondary to tight hamstrings degrees in extension and 110 degrees of flexion. Extension Lag: < 10 degrees Pain with ROM: Yes Effusion: Slight Tender to the palpation of Medial femoral condyle and Lateral femoral condyle Pain with patellar compression: Yes Stability: Anterior/Posterior stable and Varus/Valgus stable Hip Exam: flexion to 100+ degrees, full extension, internal/external rotation adequate, and no pain with log roll Neurovascular Status: Sensation Intact, Moves foot and ankle up AND down, and 2+ dorsalis pedis Right: Alignment: Neutral Range of motion is lacking a few degrees secondary to tight hamstrings degrees in extension and 110 degrees of flexion. Extension Lag: < 10 degrees Pain with ROM: Yes Effusion: Slight Tender to the palpation of Posterior Knee and Medial femoral condyle Pain with patellar compression: Yes Stability: Anterior/Posterior stable and Varus/Valgus stable Hip Exam: flexion to 100+ degrees, full extension, internal/external rotation adequate, and no pain with log roll Neurovascular Status: Sensation Intact, Moves foot and ankle up AND down, and 2+ dorsalis pedis In addition to the comprehensive evaluation, assessment and plan outlined above, and as a distinct and separate element to the visit today, separate from a DME order of knee brace, we have made the determination to proceed with an injection to aid in the management of the patient's condition. We discussed the risks, benefits, alternatives and expected outcomes of this injection in detail, and the patient agreed to proceed. The procedure was performed as detailed below. Large Joint Arthro/Inj: bilateral knee joints 04/22/2025 10:47 AM The procedure site was prepped in the usual sterile fashion. Site: bilateral knee joints Medications (Right): 6 mg betamethasone acetate-betame (more content not included)...[facility]06-27-20[facility] History of Present illness Narrative* Kelin Conrad PA-C - 04/22/2025 10:44 AM EDTAssociated Order(s): Large Joint Arthro/Inj: bilateral knee joints Post-Procedure Diagnose(s): Primary osteoarthritis of knees, bilateral Kelin Conrad PA-C Department of Orthopaedics Orthopaedics [address] [place] [facility] [address] Dept: [phone] Dept April 22, 2025 CHIEF COMPLAINT: Pain of the Left Knee and Pain of the Right Knee Bilateral Knee Pain and Swelling/Osteoarthritis: - Onset of increased pain and swelling in bilateral knees x2-3 weeks. - Describes knees as acting up and swollen. - Aggravated by prolonged standing and activity. - Reports a sensation of something slip in the left knee when exiting her vehicle, nearly causinga fall. - Has not had knee injections since 2019, which previously provided significant relief. - Denies current use of knee braces; has used Spandex braces in the past with some benefit. - Has tried Voltaren gel with some relief. Osteoporosis: - Diagnosed with osteoporosis. - Currently weaning off prednisone for Crohn's due to concerns about bone density. Crohn's Disease: - Diagnosed with Crohn's disease, managed with Stelara. - Recent flare-up requiring hospitalization for 6 days. - Currently weaning off prednisone. - Reports strictures and narrowing of the colon. - History of C. diff infection. - Follow-up with roving weight gauger Dr. Bull scheduled for May. Social History: - Significant other has bladder cancer, requiring frequent trips to [facility] for treatment. - Recently lost her mother and has a history of losing children. - Attends therapy regularly. - Desires to stay mobile to care for her significant other and maintain her garden. ASSESSMENT: M17.0 Primary osteoarthritis of knees, bilateral PLAN: 1. Primary osteoarthritis of knees, bilateral (M17.0) - Bilateral knee osteoarthritis confirmed on X-rays; no significant progression compared to 2020 imaging. - Administered bilateral intra-articular corticosteroid injections. - Discussed use of topical analgesics such as Voltaren and Aspercreme for additional pain management. - Fitted with a hinged knee brace for the left knee to provide support and reduce strain. - Advised to monitor symptoms and return for repeat injections if pain recurs, ensuring a minimum interval of 91 days between injections. Ms. Isaac Rahman was advised as to contrast therapies and/or to take analgesics/anti-inflammatories as needed and all contraindications were reviewed. OBJECTIVE: Ms. Isaac Rahamn is a pleasant 64 year old in no apparent distress. Gen:There were no vitals taken for this visit. nl development, obese, no deformities ENT: Normocephalic, normal hearing, moist mucosa CV: Pulses:DP/PT= 2+ and symmetric, capillary refill < 2 secs, no peripheral edema/varicosities Skin: no rash, bruising or lesions. Good turgor. Psych: cooperative and appropriate, alert and oriented x 3, good mood and affect. Musculoskeletal: KNEE EXAM: Left: Alignment: Neutral Range of motion is lacking a few degrees secondary to tight hamstrings degrees in extension and 110 degrees of flexion. Extension Lag: < 10 degrees Pain with ROM: Yes Effusion: Slight Tender to the palpation of Medial femoral condyle and Lateral femoral condyle Pain with patellar compression: Yes Stability: Anterior/Posterior stable and Varus/Valgus stable Hip Exam: flexion to 100+ degrees, full extension, internal/external rotation adequate, and no painwith log roll Neurovascular Status: Sensation Intact, Moves foot and ankle up & down, and 2+ dorsalis pedis Right: Alignment: Neutral Range of motion is lacking a few degrees secondary to tight hamstrings degrees in extension and 110 degrees of flexion. Extension Lag: < 10 degrees Pain with ROM: Yes Effusion: Slight Tender to the palpation of Posterior Knee and Medial femoral condyle Pain with patellar compression: Yes Stability: Anterior/Posterior stable and Varus/Valgus stable Hip Exam: flexion to 100+ degrees, full extension, internal/external rotation adequate, and no painwith log roll Neurovascular Status: Sensation Intact, Moves foot and ankle up & down, and 2+ dorsalis pedis In addition to the comprehensive evaluation, assessment and plan outlined above, and as a distinct and separate element to the visit today, separate from a DME order of knee brace, we have made the determination to proceed with an injection to aid in the management of the patient's condition. We discussed the risks, benefits, alternatives and expected outcomes of this injection in detail, and thepatient agreed to proceed. The procedure was performed as detailed below. Large Joint Arthro/Inj: bilateral knee joints 04/22/2025 10:47 AM The procedure site was prepped in the usual sterile fashion. Site: bilateral knee joints Medications (Right): 6 mg betamethasone acetate-betamethasone sodium phosphate 6 mg/mL Medications (Left): 6 mg betamethasone acetate-betamethasone sodium phosphate 6 mg/mL Anesthetics (Right): 5 mL lidocaine (PF) 10 mg/mL (1 %) Anesthetics (Left): 5 mL lidocaine (PF) 10 mg/mL (1 %) Outcome: Tolerated well, no immediate complications Post-injection instructions were reviewed with the patient and the patient voiced understanding of these instructions. Informed Consent Consent Obtained: Verbal Fowler Protocol A moment to CARE was completed. SIGN IN Sign in communication not applicable due to emergent procedure. Personnel directly involved with the procedure wore the appropriate PPE. Special Equipment: N/A Patient/Surrogate Stated/Verified: Patient name, Date of , Relevant allergies and Intended procedure TIME OUT Relevant labs, photos, and/or imaging studies have been reviewed. Consent documented and matches the intended procedure. Correct side/site marked and visible. Medications required for procedure verified. No fire risk assessment and interventions applicable. No implant(s) inserted. SIGN OUT No specimen collected. No post-procedure POC communication to the patient's multidisciplinary team (including the bedside nurse for hospitalized patients) applicable. Imaging: Supporting Subjective Information Below: Past Surgical History: PAST SURGICAL HISTORY Procedure Laterality Date APPENDECTOMY 1988 noted appendix visulaized on CT Scan in 2016 DELIVERY ONLY x 4 CHOLECYSTECTOMY 1984 Cholecystectomy COLONOSCOPY 05/22/2020 COLONOSCOPY FLX DX W/COLLJ SPEC WHEN PFRMD 11/14/03 Colonoscopy COLONOSCOPY FLX DX W/COLLJ SPEC WHEN PFRMD 11/05/04 Colonoscopy COLONOSCOPY FLX DX W/COLLJ SPEC WHEN PFRMD 08/15/16 Colonoscopy (MAC) CYSTOURETHROSCOPY 12/2006 ESOPHAGOGASTRODUODENOSCOPY TRANSORAL DIAGNOSTIC 11/14/03 EGD ESOPHAGOGASTRODUODENOSCOPY TRANSORAL DIAGNOSTIC 08/15/16 EGD (MAC) ESOPHAGOGASTRODUODENOSCOPY TRANSORAL DIAGNOSTIC 05/22/2020 EGD LAMINECTOMY W/O FFD 10/28 VERT SEG LUMBAR 2008 Laminectomy, lumbar PAST SURGICAL HISTORY OF cyst removed from Left ovary PAST SURGICAL HISTORY OF 2001 Left ovary removed PAST SURGICAL HISTORY OF 1988 right wrist reconstruction, work related injury PAST SURGICAL HISTORY OF 2004 hysterectomy, adhesion removal. STILL HAS CERVIX Medications: Current Outpatient Medications Medication Sig alendronate (FOSAMAX) 70 mg tablet Take 1 tablet by mouth one time a week. clonazePAM (KLONOPIN) 0.5 mg tablet Take 0.5 mg by mouth at bedtime as needed for anxiety. LINZESS 290 mcg capsule Take 1 capsule by mouth once daily. magnesium oxide (MAG-OX) 400 mg (241.3 mg magnesium) tablet Take 400 mg by mouth once daily. predniSONE (DELTASONE) 20 mg tablet TAKE 2 TABS ORALLY FOR 7 DAYS, 1 1/2 TABS FOR 7 DAYS, 1 TAB FOR7 DAYS AND THE 0.5 TAB FOR 7 DAYS STELARA 90 mg/mL syringe Inject 90 mg subcutaneously every 4 weeks. fluticasone (FLONASE) 50 mcg/actuation nasal spray Use 2 Sprays in each nostril once daily. Rinse mouth after use. levothyroxine (SYNTHROID) 75 mcg tablet Take 1 tablet by mouth once daily. Take on empty stomach. For Thyroid. loratadine (CLARITIN) 10 mg tablet Take 1 tablet by mouth once daily. aspirin, enteric coated (ASPIRIN, ENTERIC COATED) 81 mg EC tablet Take 1 tablet by mouth once daily. atenolol (TENORMIN) 25 mg tablet Take 1 tablet by mouth once daily. famotidine (PEPCID) 20 mg tablet Take 1 tablet by mouth twice daily as needed. Take one tablet twice daily. May take an additional tablet as needed. THEREMS tablet Take 1 tablet by mouth once daily. atorvastatin (LIPITOR) 40 mg tablet Take 1 tablet by mouth daily at bedtime. For cholesterol. potassium chloride ER (KLOR-CON M20) 20 mEq tablet TAKE 2 TABLETS BY MOUTH IN THE MORNING AND 2 TABLETS IN THE EVENING lisinopril (ZESTRIL, PRINIVIL) 20 mg tablet Take 1 tablet by mouth once daily. spironolactone (ALDACTONE) 25 mg tablet TAKE 1 TABLET BY MOUTH EVERY DAY collagen/biotin/ascorbic acid (COLLAGEN 1500 PLUS C ORAL) Take by mouth. calcium carbonate 600 mg-cholecalciferol 200 units 600 mg(1,500mg) -200 unit tab TAKE 1 TABLET BY MOUTH TWICE A DAY FLORAJEN3 460 mg (7.5-6- 1.5 bill. cell) cap TAKE 1 CAPSULE BY MOUTH EVERY DAY Mesalamine (PENTASA) 500 mg CR capsule Take two capsules twice a day (Patient not taking: Reported on 04/22/2025) Gatorade Sports Drink Use as directed for Miralax / Gatorade Bowel Prep Kit Bisacodyl (DULCOLAX) 5 mg tab Use as directed for Miralax / Gatorade Bowel Prep Kit Incontinence Pad, Liner, Disp pads 1 Units twice daily. gabapentin (NEURONTIN) 600 mg tablet Take 1 tablet by mouth once daily for 30 days. cyclobenzaprine (FLEXERIL) 10 mg tablet Take 1 tablet by mouth every 8 hours as needed for Muscle Spasm (or pain). COMPOUNDED PRESCRIPTION BIPAP 09/07, mask, supplies, and tubing COMPOUNDED PRESCRIPTION CPAP at 09/07 No current facility-administered medications for this visit. Allergies: Nickel, Penicillins, Seasonal Allergies, and Tetracycline ROS: General (negative for fatigue, malaise, weight loss/gain) HEENT (negative for headache, earache, recent vision changes, sinus pain, sore throat) Respiratory (no recent shortness of breath, hemoptysis) CV (negative for chest tightness, palpitations) Musculoskeletal (see HPI) Psych (no depression, anxiety) This note was partially generated using GLIIF voice recognition system, and there may be some incorrect words, spellings, and punctuation that were not noted in checking the note before saving. Kelin Conrad PA-C * Mari Maxwell MA - 04/22/2025 10:24 AM EDT PT ASSESSMENT - CASTING ROOM [facility] presents for Application of brace. Applied Medium wrap around hinged knee brace to Left knee. Patient electronically signed Moe GUPTA. Patient has been instructed in Care and proper application of brace. Mari Maxwell MA * Mari Maxwell MA - 04/22/2025 9:38 AM EDT AMB ROOMING INTAKE FLOWSHEET DATA Risk Screening Do you have concerns about personal safety or safety in the home?: No Pain Pain Level: 4 Pain Location: (bilateral knees) Description: Throbbing Duration Amount of Time: (ongoing) Frequency: Intermittent Intervention/Comfort measure: Other: See comment, Medication (brace and cane) [facility] NoteHNO ID: [id number] Author: MARI MAXWELL MA Service: ? Author Type: Car Cleaning Supervisor Type: Progress Notes Filed: 04/22/2025 10:48 Note Text: PT ASSESSMENT - CASTING ROOM Isaac presents for Application of brace. Applied Medium wrap around hinged knee brace to Left knee. Patient electronically signed Moe GUPTA. Patient has been instructed in Care and proper application of brace. Mari Maxwell [facility]06-27-2025 NoteHNO ID: [id number] Author: MARI MAXWELL MA Service: ? Author Type: Car Cleaning Supervisor Type: Progress Notes Filed: 04/22/2025 10:48 Note Text: AMB ROOMING INTAKE FLOWSHEET DATA Risk Screening Do you have concerns about personal safety or safety in the home?: No Pain Pain Level: 4 Pain Location: (bilateral knees) Description: Throbbing Duration Amount of Time: (ongoing) Frequency: Intermittent Intervention/Comfort measure: Other: See comment, Medication (brace and cane) [facility]06-16-2025 Evaluation note* Diagnosis Onset Date Resolution Status Admit Date Anxiety and depression noneactive Ju ne 2024 12:52pm Chest pain in adult noneactive Augus t 2024 11:33am Shoulder blade pain noneactive Augus t 2024 11:33am [facility] Work Phone: 1(327) 831-137706-16-2025 Evaluation note* Diagnosis Onset Date Resolution Status Admit Date Anxiety and depression noneactive Ju ne 2024 12:52pm Chest pain in adult noneactive Augus t 2024 11:33am Shoulder blade pain noneactive Augus t 2024 11:33am Crohns disease chronic May 7:48am Clostridioides difficile infection resolved June 17 7:48am Abdominal pain inactive May 7:48am Exacerbation of Crohn's disease of small intestine inactive Augus t 2024 7:48am LINDY on CPAP acute June 8:22am Crohns disease chronic July 26, 2025 8:22am Dyslipidemia chronic July 262024 8:22am Immunization due noneactive Septembe r 2024 8:22am Acquired hypothyroidism noneactive S eptember 2024 8:22am Chronic constipation noneactive Sept ember 2024 8:22am Osteoporosis noneactive July 262024 8:22am Essential hypertension noneactive Se ptember 2024 8:22am Anxiety and depression noneactive Se ptember 2024 8:22am [facility] Work Phone: 1(452) 509-888106-13-2025 Radiology Diagnostic study note [facility] Imaging Services [address] [place] [id number] Abdomen Single View MR#: [id number] Acct: [id number] Name: ISAAC RAHMAN Rep #: [id number] : 1960 F 64 From: Melany Neal MD PCP: Dr. Andreas Buenrostro MD Status: REG CLI Study:Abdomen Single View Date of Exam: 04/08/25 Exam# [id number] Ordering Dr: Cristobal Bull DO EXAM: XR Abdomen, 1 View CLINICAL INDICATION: ABDOMINAL PAIN TECHNIQUE: Frontal supine view of the abdomen/pelvis. COMPARISON: No relevant prior studies available. FINDINGS: GASTROINTESTINAL TRACT: Fecal retention in the colon consistent with constipation. No dilation. BONES/JOINTS: Unremarkable. No acute fracture. RAD/Abdomen Single View IMPRESSION: Fecal retention in the colon consistent with constipation. [facility] CC: Dr. Andreas Buenrostro MD; Arthur Friend, DO ~ In Store Banker: Signed [facility]04-21-2025 Evaluation note* Diagnosis Onset Date Resolution Status Admit Date Crohns disease chronic January 7:31am Clostridioides difficile infection resolved February 14, 2025 7:31am Anxiety and depression noneactive Ju ne 2024 12:52pm Shoulder blade pain noneactive Augus t 2024 11:33am [facility] Work Phone: 1(336) 698-980504-21-2025 Evaluation note* Diagnosis Onset Date Resolution Status Admit Date Crohns disease chronic January 7:31am Clostridioides difficile infection resolved February 14, 2025 7:31am Anxiety and depression noneactive Ju ne 2024 12:52pm Chest pain in adult noneactive Augus t 2024 11:33am Shoulder blade pain noneactive Augus t 2024 11:33am [facility] Work Phone: 1(318) 147-513904-01-2025 Evaluation note* Diagnosis Onset Date Resolution Status Admit Date Crohns disease chronic January 25, 2025 11:20am Dyslipidemia chronic January 25 11:20am Acquired hypothyroidism noneactive A pril 2024 11:20am Chronic constipation noneactive Apri l 2024 11:20am Osteoporosis noneactive January 25 11:20am Essential hypertension noneactive Ap ril 2024 11:20am Anxiety and depression noneactive Ap ril 2024 11:20am Crohns disease chronic January 7:31am Clostridioides difficile infection resolved February 14, 2025 7:31am Anxiety and depression noneactive Ju ne 2024 12:52pm [facility] Work Phone: 1(757) 865-903404-01-2025 NotePatient Outreach (FAMPWS) ISAAC RAHMAN ([id number]) 1960 F Date Time Provider Department 01/25/25 [facility] CAR[facility] LEONG During your visit today, we recorded the following information about you: Allergies As of Date: 01/25/2025 Noted Allergy Reaction NICKEL 04/01/2017 2 - Rash Comments: Can't wear cheap jewelry PENICILLINS 11/07/2005 5 - Intolerance SEASONAL ALLERGIES 03/12/2016 16 - Unknown TETRACYCLINE 02/14/2014 8 - GI Upset 14 - Other: See Comments Comments: Sensitive to light Date Reviewed: 12/06/2022 Reviewed by: Anahy Menendez LPN - Fully Assessed Visit Diagnosis:Encounter for screening mammogram for breast cancer [Z12.31] Order(s):[facility] [[id number]] Order #: [id number] FUTURE Prescriptions as of 02/25/2025 - fluticasone (FLONASE) 50 mcg/actuation nasal spray Use 2 Sprays in each nostril once daily. Rinse mouth after use. - levothyroxine (SYNTHROID) 75 mcg tablet Take 1 tablet by mouth once daily. Take on empty stomach. For Thyroid. - loratadine (CLARITIN) 10 mg tablet Take 1 tablet by mouth once daily. - aspirin, enteric coated (ASPIRIN, ENTERIC COATED) 81 mg EC tablet Take 1 tablet by mouth once daily. - Mesalamine (PENTASA) 500 mg CR capsule Take two capsules twice a day - atenolol (TENORMIN) 25 mg tablet Take 1 tablet by mouth once daily. - famotidine (PEPCID) 20 mg tablet Take 1 tablet by mouth twice daily as needed. Take one tablet twice daily. May take an additional tablet as needed. - THEREMS tablet Take 1 tablet by mouth once daily. - atorvastatin (LIPITOR) 40 mg tablet Take 1 tablet by mouth daily at bedtime. For cholesterol. - potassium chloride ER (KLOR-CON M20) 20 mEq tablet TAKE 2 TABLETS BY MOUTH IN THE MORNING AND 2 TABLETS IN THE EVENING - lisinopril (ZESTRIL, PRINIVIL) 20 mg tablet Take 1 tablet by mouth once daily. - spironolactone (ALDACTONE) 25 mg tablet TAKE 1 TABLET BY MOUTH EVERY DAY - Gatorade Sports Drink Use as directed for Miralax / Gatorade Bowel Prep Kit - Bisacodyl (DULCOLAX) 5 mg tab Use as directed for Miralax / Gatorade Bowel Prep Kit - collagen/biotin/ascorbic acid (COLLAGEN 1500 PLUS C ORAL) Take by mouth. - calcium carbonate 600 mg-cholecalciferol 200 units 600 mg(1,500mg) -200 unit tab TAKE 1 TABLET BY MOUTH TWICE A DAY - Incontinence Pad, Liner, Disp pads 1 Units twice daily. - gabapentin (NEURONTIN) 600 mg tablet Take 1 tablet by mouth once daily for 30 days. - cyclobenzaprine (FLEXERIL) 10 mg tablet Take 1 tablet by mouth every 8 hours as needed for Muscle Spasm (or pain). - FLORAJEN3 460 mg (7.5-6- 1.5 bill. cell) cap TAKE 1 CAPSULE BY MOUTH EVERY DAY - COMPOUNDED PRESCRIPTION BIPAP 09/07, mask, supplies, and tubing - COMPOUNDED PRESCRIPTION CPAP at 09/07 Problem List As Of Date 01/25/2025 Noted Resolved Esophageal reflux [K21.9] 12/16/2014 Essential hypertension, benign [I10] Benign neoplasm of colon [D12.6] 12/16/2014 Diaphragmatic hernia without mention of obstruc* 02/21/2014 Hematuria [599.7] 12/16/2014 Abdominal pain, unspecified site [R10.9] 11/23/2012 Diverticulitis of colon with hemorrhage [K57.33] 02/21/2014 Lumbago [M54.50] 05/30/2006 12/16/2014 Depressive disorder, not elsewhere classified [*05/30/2006 12/16/2014 Allergic rhinitis, cause unspecified [J30.9] 05/30/2006 12/16/2014 Obesity, unspecified [E66.9] 05/30/2006 12/16/2014 DM (diabetes mellitus) [E11.9] 11/23/2012 07/11/2015 Sleep apnea [G47.30] 11/23/2012 Hyperlipidemia [E78.5] 02/05/2013 Pain management [R52] 02/02/2014 12/16/2014 Disorder of bone and cartilage, unspecified [M8*02/05/2013 12/16/2014 NO SHOW [248288] 06/07/2014 12/16/2014 Neck pain [M54.2] 12/08/2014 12/16/2014 Cervical radiculitis [M54.12] 12/08/2014 12/16/2014 Cervical spondylosis without myelopathy [M47.81*12/08/2014 GERD (gastroesophageal reflux disease) [K21.9] 12/16/2014 Hypothyroidism [E03.9] 07/11/2015 Depression [F32.A] 03/17/2015 Type 2 diabetes mellitus without complication (*07/11/2015 04/04/2022 Acquired hypothyroidism [E03.9] 07/11/2015 Positive urine drug screen [R82.5] 06/24/2016 Fibromyalgia [M79.7] 07/25/2016 Smoker [F17.200] 07/25/2016 Low back pain with left-sided sciatica [M54.42] 08/05/2016 Crohn's disease involving terminal ileum (HCC) *01/21/2017 Loose body in knee [M23.40] 02/21/2017 Screening for genitourinary condition [Z13.89] 02/19/2018 Type 2 diabetes mellitus without retinopathy (H*11/05/2018 04/04/2022 Punctate keratitis, bilateral [H16.143] 11/05/2018 Hyperopia of both eyes with astigmatism and pre*11/05/2018 Coronary artery disease involving belkofski larry*02/16/2020 Prediabetes [R73.03] 11/23/2012 PTSD (post-traumatic stress disorder) [F43.10] 04/04/2022 History of tobacco use [Z87.891] 04/04/2022 Encounter Status:Closed by EPIC, PRODUSER on 02/25/25[facility] 04-02-2023 [facility] note [facility]03-22-[address] Lugo [facility] January 15, 2023 12:24am Note Date/Time January 14, 2023 10: 05pm [facility] Medical Records Department [address] [place] [address] Emergency Department Summary 01/14/23 MR#: [id number] Acct: [id number] Name: ISAAC RAHMAN Rep #:[id number] : 1960 62 From: Josef Lugo MD PCP: Dr. Andreas Buenrostro MD Status:REG ER Location: ED HPI HPI - GI History of Present Illness Chief Complaint: Abd Pain Informant: patient Narrative Narrative: Patient states she was admitted to the hospital for about a week recently, for C. difficile colitis and Crohn's exacerbation. She did not have surgery. She has been home for about 3 weeks and has been having the same pain she had in thehospital ever since, it waxes and wanes, it has been progressively getting worse. She was seen in the ER 4 days ago here for the same and had a CT, she was given fluids and analgesics and discharged home, she has been on prednisone 20 mg daily ever since she was discharged, she is having trouble eating because it makes the pain worse, she is basically having meals that consist of a piece of peanut butter toast and meals are infrequent. She has been losing weight. She has had no more diarrhea since she has been home. She is having nonbloody small caliber bowel movements. No melena. Occasional nausea but no vomiting. No radiation or migration of the pain which is mostly lower abdomen. Scheduled for GI follow-up but is later this week. [facility] Medical History Allergies Back problem Bone fracture Clostridioides difficile infection Crohns disease Depression Diverticulitis Esophageal reflux Gallstones Gastrointestinal problem H/O emotional problems High cholesterol Hx: UTI (urinary tract infection) Hypothyroidism Internal hemorrhoids Liver lesion Lumbago Neuropathy Osteopenia Pneumonia PTSD (post-traumatic stress disorder) Recurrent infections Sleep apnea Thyroid disease Vitamin deficiency Home Medications aspirin 81 mg tablet,delayed release (Ecotrin Low Strength) 81 mg PO DAILY 12/21/13 [History Last Taken 12/20/13 09:00] gabapentin 600 mg tablet (Neurontin) 600 mg PO BID PRN Pain 12/21/13 [History Last Taken 12/27/22] lisinopril 20 mg tablet 20 mg PO DAILY 12/21/13 [History Last Taken 12/28/22] atenolol 25 mg tablet 25 mg PO DAILY 11/24/18 [History Last Taken 12/27/22] levothyroxine 75 mcg capsule 75 mcg PO DAILY 11/11/22 [History Last Taken 12/28/22] spironolactone 25 mg tablet 25 mg PO DAILY 11/11/22 [History Last Taken Unknown] Lactobacillus acidophilus 20 billion cell capsule (Florajen Acidophilus) 10 mg PO DAILY . 12/28/22 [History Last Taken 12/27/22] atorvastatin 40 mg tablet 40 mg PO QHS CHOLESTEROL 12/28/22 [History Last Taken 12/27/22] famotidine 20 mg tablet 20 mg PO DAILY PRN Stomach Upset 12/28/22 [History Last Taken Unknown] fluticasone propionate 50 mcg/actuation nasal spray,suspension 2 spray intranasal DAILY PRN ALLERGIES 12/28/22 [History Last Taken 1 Week Ago ~12/21/22] loratadine 10 mg tablet 10 mg PO DAILY ALLERGIES 12/28/22 [History Last Taken 12/27/22] multivitamin with folic acid 400 mcg tablet (Therems Multivitamin) 1 tab PO DAILY SUPPLEMENT 12/28/22 [History Last Taken 12/27/22] potassium chloride 20 mEq tablet,extended release(part/cryst) (Klor-Con M) 40 meq PO BID POTASSIUM 12/28/22 [History Last Taken 12/27/22] vancomycin 25 mg/mL oral solution (Firvanq) 125 mg (5 mL) PO Q6 7 days #140 mL 01/04/23 [Rx Last Taken Unknown] ondansetron 4 mg disintegrating tablet 4 mg PO Q8H PRN PRN Nausea #10 tabs 01/10/23 [Rx Last Taken Unknown] calcium carbonate 600 mg-vitamin D3 5 mcg (200 unit) tablet 1 ea PO DAILY 01/13/23 [History Last Taken Unknown] cyclobenzaprine 10 mg tablet 1 tablet PO PRN PRN Back Pain 01/13/23 [History Last Taken Unknown] lidocaine 4 % topical patch 1 patch topical DAILY PRN Pain 01/13/23 [History Last Taken Unknown] loratadine 10 mg tablet 10 mg PO DAILY 01/13/23 [History Last Taken Unknown] oxycodone-acetaminophen 5 mg-325 mg tablet 1 tab PO Q6H PRN PRN Pain 3 days #12 TABLETS 01/15/23 [Rx Last Taken Unknown] prednisone 20 mg tablet 40 mg PO DAILY 3 days #6 tabs 01/15/23 [Rx Last Taken Unknown] Allergy/AdvReac Type Severity Reaction Status Date / Time Penicillins [PCN] Allergy Unknown Verified 01/14/23 21:29 Tetracyclines AdvReac Nausea Verified 01/14/23 21:29 Family History (Updated 01/13/23 @ 12:10 by Katerin Jacobs) Grandmother Bowel disease Myocardial infarction Hypertension Aunt Bowel disease Ovarian cancer Mother Diabetes High cholesterol Father Diabetes Heart disease Thyroid disorder Father Myocardial infarction Hypertension High cholesterol Other Anemia Colon cancer Surgical History History of cholecystectomy History of hysterectomy Hx of section Social History Smoking Status: Former smoker substance use type: marijuana ROS ROS ED Constitutional Constitutional ED: Reports anorexia, malaise, weakness and weight loss; Denies chills or fever(s) Eyes Eyes: Denies change in vision or diplopia ENT ENT ED: Denies rhinorrhea or sore throat Cardiovascular Cardiovascular: Reports lightheadedness; Denies chest pain or palpitations Respiratory/Chest Respiratory/Chest: Denies cough or dyspnea Gastrointestinal Gastrointestinal: Reports abdominal pain and nausea; Denies diarrhea, hematemesis, hematochezia, melena or vomiting Genitourinary Genitourinary ED: Denies dysuria or hematuria Musculoskeletal Musculoskeletal: Denies back pain or neck pain Integumentary Denies abscess or rash Neurologic Neurologic: Denies headache(s), paresthesias or weakness Psychiatric Psychiatric: Denies anxiety or suicidal thoughts EXAM Physical Exam Const Vital Signs: 01/14/23 21:30 Temperature 97.1 F L Temperature Source Temporal Pulse Rate 66 Respiratory Rate 20 H Blood Pressure 180/78 H Blood Pressure Mean 112 Pulse Ox 99 Oxygen Delivery Method Room Air Positive well nourished and well developed General Appearance ED: well developed and NAD HEENT Reports moist mucous membranes normocephalic and atraumatic Eyes PERRL and EOMs intact bilaterally Neck full ROM and supple Resp normal respiratory effort and clear to auscultation bilaterally Cardio regular rate, regular rhythm and no murmurs GI non-distended GI Narrative: Diffuse tenderness mostly lower abdomen nonlateralizing nonfocal no hepatomegaly or splenomegaly palpable Auscultation: hyperactive bowel sounds Palpation: soft Back/Spine no CVA tenderness General Back: other FROM Extremity normal to inspection General Extremety ED: Negative for edema, pulses abnormal or tenderness General Extremity: Negative for edema or pulses abnormal Neuro oriented x3, CN's II-XII intact bilaterally and no sensory deficits noted Sensorium / Orientation: awake and alert Motor Exam: strength 5/5 throughout Psych Mood & Affect: anxious Skin no rashes or lesions noted and no wounds MDM MDM MDM Narrative Medical decision making narrative: Labs were obtained, while patient was given IV fluids, morphine, Zofran. She felt much better on reevaluation. She is ambulatory. She is tolerating some oral fluids. She is on prednisone so I would expect a leukocytosis, her white blood count is actually lower than it was 4 days ago. I reviewed her CT scan, she had some terminal ileitis at that time, and she states the pain that she is having now, as well as the other symptoms, are the same, her pain was just worse, and no vomiting to suggest an acute small bowel obstruction. Therefore, I do not think she needs to have another CT scan, although it was considered before getting the labs. I attempted to get a hold of Dr. Bull, but he was not available at the time. Patient has an appointment to see him in 3 days. She is having no more diarrhea, is finished with the C. difficile antibiotics, and is on prednisone 20 mg daily has not started tapering any of that yet. She is not on Biologics at this time. I think discharging her and doubling her prednisone to 40 mg/day until she follows up is reasonable, we will also prescribe her some oxycodone which she was using to help try to get some food in her. She is comfortable with that plan, given Solu-Medrol 62.5 mg here, she had her initial dose of prednisone 20 mg today earlier. History & Record Review Additional record(s) reviewed:: Prior inpatient record (GI c/s) and Prior ED visit (With contrasted CT abdomen/pelvis 4 days ago) Lab Data Attestation: I reviewed the patient's lab results. Labs: Laboratory Results - last 24 hr 01/14/23 01/14/23 22:25 22:25 WBC 13.7 H RBC 4.76 Hgb 15.0 Hct 43.5 MCV 91.4 MCH 31.5 MCHC 34.5 RDW Std Deviation 38.9 RDW Coeff of Jessica 11.6 Plt Count 269 MPV 10.1 Immature Gran % (Auto) 0.300 Neut % (Auto) 71.2 H Lymph % (Auto) 23.9 Ray % (Auto) 4.5 Eos % (Auto) 0.0 Baso % (Auto) 0.1 Absolute Neuts (auto) 9.7 H Absolute Lymphs (auto) 3.27 Nucleated RBC % 0 Sodium 141 Potassium 3.5 Chloride 109 H Carbon Dioxide 23.0 Anion Gap 9 BUN 21 H Creatinine 0.80 Estim Creat Clear Calc 51.70 Est GFR (MDRD) Af Amer 93 Est GFR (MDRD) Non-Af 77 BUN/Creatinine Ratio 26.2 H Glucose 126 H Calcium 9.5 Total Bilirubin 0.70 AST 13 L ALT 48 Alkaline Phosphatase 68 Total Protein 7.5 Albumin 3.8 Globulin 3.7 Albumin/Globulin Ratio 1.0 Lipase 247 Discharge Plan Triage Chief Complaint: Abd Pain ED Provider: Josef Lugo Dx/Rx/DC Orders Clinical Impression: Exacerbation of Crohn's disease of small intestine Instructions: Crohns Disease Dc Prescriptions: Continued spironolactone 25 mg tablet 25 mg PO DAILY levothyroxine 75 mcg capsule 75 mcg PO DAILY cyclobenzaprine 10 mg tablet 1 tablet PO PRN PRN (Reason: Back Pain) lidocaine 4 % adhesive patch,medicated 1 patch topical DAILY PRN (Reason: Pain) calcium carbonate-vitamin D3 600 mg-5 mcg (200 unit) tablet 1 ea PO DAILY Label Comments: TAKE 1 TABLET BY MOUTH TWICE A DAY loratadine 10 mg tablet 10 mg PO DAILY gabapentin [Neurontin] 600 MG tablet 600 mg PO BID PRN (Reason: Pain) lisinopril 20 MG tablet 20 mg PO DAILY aspirin [Ecotrin Low Strength] 81 MG tablet,delayed release (DR/EC) 81 mg PO DAILY atenolol 25 MG tablet 25 mg PO DAILY atorvastatin 40 mg tablet 40 mg PO QHS Label Comments: TAKE 1 TABLET BY MOUTH DAILY AT BEDTIME. FOR CHOLESTEROL potassium chloride [Klor-Con M20] 20 mEq tablet,ER particles/crystals 40 meq PO BID Label Comments: TAKE 2 TABLETS BY MOUTH IN THE MORNING AND 2 TABLETS IN THE EVENING famotidine 20 mg tablet 20 mg PO DAILY PRN (Reason: Stomach Upset) Label Comments: TAKE 1 TAB TWICE DAILY NEEDED. TAKE 1 TAB TWICE DAILY. MAY TAKE AN ADDITIONAL TABLET NEEDED. fluticasone propionate 50 mcg/actuation spray,suspension 2 spray INTRANASAL DAILY PRN (Reason: ALLERGIES) Label Comments: USE 2 SPRAYS IN EACH NOSTRIL ONCE DAILY. RINSE MOUTH AFTER USE. loratadine 10 mg tablet 10 mg PO DAILY Label Comments: TAKE 1 TABLET BY MOUTH EVERY DAY Florajen Acidophilus 20 billion cell Capsule 10 mg PO DAILY multivitamin with folic acid [Therems Multivitamin] 400 mcg tablet 1 tab PO DAILY Label Comments: TAKE 1 TABLET BY MOUTH EVERY DAY Firvanq 25 mg/mL Recon Soln 125 mg PO Q6 7 Days Qty: 140 0RF ondansetron 4 mg tablet,disintegrating 4 mg PO Q8H PRN PRN (Reason: Nausea) Qty: 10 0RF oxycodone-acetaminophen 5-325 mg tablet 1 tab PO Q6H PRN PRN (Reason: Pain) 3 Days Qty: 12 0RF Changed prednisone 20 mg tablet 40 mg PO DAILY 3 Days Qty: 6 0RF Discontinued hydrocodone-acetaminophen 5-325 mg tablet 1 tab PO Q6H PRN PRN (Reason: Pain) 3 Days Qty: 10 0RF Primary Care Provider: Andreas Buenrostro Referrals: Andreas Buenrostro MD [Primary Care Provider] - Arthur Bull DO [Med Staff - Active Staff] - Keep Carlos appointment Disposition Disposition: Home, Self Care What to do if you have Problems For any increased pain, shortness of breath, bleeding, nausea or vomiting, chestpain, or any unexpected problems, contact your Primary Care Provider. Call [facility] ([phone]) or report to the closest Emergency Room. Call 911 if necessary. 01/15/237 <Electronically signed by Josef Lugo MD> Cosigner Signature (if applicable): CC: Dr. Andreas Buenrostro MD ~ Signed ADDENDUM by Dr. Josef Lugo MD on 01/15/[address] Bull who was in agreement with this plan. 01/15/2323<Electronically signed by Josef Lugo MD> Cosigner Signature (if applicable): cc: Dr. Andreas Buenrostro MD ~* Signed [facility] Work Phone: 1(847) 271-532702-10-2023 History of Present illness Narrative* Thao Pineda APRN.REDIPPER - 12/06/2022 7:46 AM EST 12/06/2022 Patient presents with: Follow Up: BP SUBJECTIVE: This is a 62 year old that is here today for Above Complaints. Bp elevated at last office appointment. Lisinopril increased to 20 mg from 10 mg. Taking and tolerating without side effects. Has only checked a BP a couple of times at home but does not think cuff works. Reports readings were in the 170/90's. Denies 175/98. Did not bring home cuff today to validate. Denies visual changes, headaches, dizziness, lightheadedness, slurred speech, facial drooping, extremity numbness,tingling, weakness, SOB, dyspnea or chest pain. PAST MEDICAL HISTORY Diagnosis Date Cataracts, bilateral Cervical spondylosis with radiculopathy Crohn's disease involving terminal ileum (HCC) 01/21/2017 Dr. De Anda DEPRESSIVE DISORDER NEC 05/30/2006 Diverticulitis Esophageal reflux Essential hypertension, benign Fibromyalgia 07/25/[address] Garcia for pain management. History of tobacco use Hyperlipidemia 02/05/2013 Hypothyroidism Internal hemorrhoids without mention of complication Lumbago 05/30/2006 L4,L5 compression fracture Prediabetes 11/23/2012 single episode of A1C>6.5, possibly related to steroid injections PTSD (post-traumatic stress disorder) 2 children from [facility] Sleep apnea ALLERGIES Nickel, Penicillins, Seasonal Allergies, and Tetracycline MEDICATIONS Current Outpatient Medications Medication Sig levothyroxine (SYNTHROID) 75 mcg tablet Take 1 tablet by mouth once daily. Take on empty stomach. For Thyroid. loratadine (CLARITIN) 10 mg tablet Take 1 tablet by mouth once daily. aspirin, enteric coated (ASPIRIN, ENTERIC COATED) 81 mg EC tablet Take 1 tablet by mouth once daily. Mesalamine (PENTASA) 500 mg CR capsule Take two capsules twice a day atenolol (TENORMIN) 25 mg tablet Take 1 tablet by mouth once daily. famotidine (PEPCID) 20 mg tablet Take 1 tablet by mouth twice daily as needed. Take one tablet twice daily. May take an additional tablet as needed. THEREMS tablet Take 1 tablet by mouth once daily. atorvastatin (LIPITOR) 40 mg tablet Take 1 tablet by mouth daily at bedtime. For cholesterol. potassium chloride ER (KLOR-CON M20) 20 mEq tablet TAKE 2 TABLETS BY MOUTH IN THE MORNING AND 2 TABLETS IN THE EVENING lisinopril (ZESTRIL, PRINIVIL) 20 mg tablet Take 1 tablet by mouth once daily. spironolactone (ALDACTONE) 25 mg tablet TAKE 1 TABLET BY MOUTH EVERY DAY (Patient taking differently: 25 mg. Patient takes when feels like retaining water. Reports causes uretha irritation) fluticasone (FLONASE) 50 mcg/actuation nasal spray Use 2 Sprays in each nostril once daily. Rinse mouth after use. collagen/biotin/ascorbic acid (COLLAGEN 1500 PLUS C ORAL) Take by mouth. calcium carbonate 600 mg-cholecalciferol 200 units 600 mg(1,500mg) -200 unit tab TAKE 1 TABLET BY MOUTH TWICE A DAY Incontinence Pad, Liner, Disp pads 1 Units twice daily. cyclobenzaprine (FLEXERIL) 10 mg tablet Take 1 tablet by mouth every 8 hours as needed for Muscle Spasm (or pain). FLORAJEN3 460 mg (7.5-6- 1.5 bill. cell) cap TAKE 1 CAPSULE BY MOUTH EVERY DAY Gatorade Sports Drink Use as directed for Miralax / Gatorade Bowel Prep Kit Bisacodyl (DULCOLAX) 5 mg tab Use as directed for Miralax / Gatorade Bowel Prep Kit gabapentin (NEURONTIN) 600 mg tablet Take 1 tablet by mouth once daily for 30 days. COMPOUNDED PRESCRIPTION BIPAP 09/07, mask, supplies, and tubing COMPOUNDED PRESCRIPTION CPAP at 09/07 No current facility-administered medications for this visit. Medications and allergies reviewed by this provider. SOCIAL HISTORY Social History Tobacco Use Smoking status: Former Packs/day: 0.50 Years: 12.00 Pack years: 6.00 Types: Cigarettes Quit date: 12/25/2021 Years since quittin.9 Smokeless tobacco: Never Vaping Use Vaping Use: Never used Substance Use Topics Alcohol use: No Drug use: Not Currently Frequency: 3.0 times per week Types: Marijuana Comment: 1-2 twice a month REVIEW OF SYSTEMS All other reviewed and negative other than HPI. OBJECTIVE: BP 113/75 Pulse 60 Resp 16 Wt 81.7 kg (180 lb 3.2 oz) SpO2 95% BMI 35.19 kg/m . Vital signs reviewed by this provider. APPEARANCE Well appearing, alert, in no acute distress, well-hydrated, well nourished. DTAP,TDAP,TD(1 - Tdap) Never done DILATED RETINAL EXAM due on 11/05/2019 DIABETIC FOOT EXAM due on 05/21/2022 INFLUENZA(1) due on 06/27/2022 HEPATITIS B(3 of 3 - Hep B Twinrix risk 3-dose series) due on 10/06/2022 HEPATITIS A(3 of 3 - Hep A Twinrix risk 3-dose series) due on 10/06/2022 MAMMOGRAM due on 01/24/2023 MMR(1 of 2 - Risk 2-dose series) due on 04/04/2023 SHINGRIX VACCINE(1 of 2) due on 04/04/2023 COVID-19 VACCINE(1) due on 04/04/2023 PNEUMOCOCCAL(2 - PCV) due on 03/17/2025 URINE ALBUMIN:CREATININE RATIO due on 03/06/2023 HBA1C due on 05/05/2023 LDL CHOLESTEROL due on 11/04/2023 ANNUAL PCP TEAM CHRONIC DISEASE VISIT due on 11/04/2023 BP CONTROLLED (<130/80) due on 12/06/2023 COLORECTAL CANCER SCREENING due on 05/22/2025 HEPATITIS C SCREENING Completed PAP TESTING Discontinued HPV TESTING Discontinued HIV SCREENING Discontinued ASSESSMENT/PLAN: 1. Essential hypertension, benign - ICD9: 401.1, ICD10: I10 - good control - Continue current medication(s) - Encouraged dietary sodium restriction/DASH diet - Recommended regular aerobic exercise. - Recommend home blood pressure monitoring, to bring results in on next visit - Discussed need and benefit for weight loss. - Goal of BP <140/90 - Recommend home or pharmacy blood pressure monitoring - Recommended no refined sugar, low refined starch, healthy oil intake (olive oil), healthy protein(fish) along the lines of the Mediterranean diet. Thao Podlogar, DIRECTOR REGULATORY AFFAIRS.REDIPPER Prescription instructions reviewed with patient as applicable. Patient advised if symptoms do not improve or if symptoms worsen sooner, to contact their primary care physician. Potential red flag symptoms discussed with the patient. Reviewed appropriate action plan to take if red flag symptoms occur. Patient agreeable to treatment plan. I spent a total of 20 minutes on the date of the service which included preparing to see the patient, [id number] patient care, completing clinical documentation, obtaining and/or reviewing separately obtained history, performing a medically appropriate examination, and counseling and educating the patient/family/caregiver. documented in this encounterL[facility]01-13-2023 Miscellaneous Notes* Telephone Encounter - Trisha Llanos LPN - 11/08/2022 4:10 PM EST Patient notified. Trisha Llanos LPN * Telephone Encounter - Thao Pineda APRN.CNP - 11/08/2022 2:53 PM EST Please call patient and let her know urine did not show infectious process. Thao Pineda APRN.CNP documented in this encounterLake[facility]01-11-2023 Miscellaneous Notes* Telephone Encounter - Anjelica Wei RN - 11/06/2022 8:10 AM EST Patient called and notified of results and providers instructions. Patient verbalizes understanding. Anjelica Wei RN * Telephone Encounter - Thao Pineda APRN.CNP - 11/06/2022 7:46 AM EST Please let patient know her A1c is 5.8% which is in prediabetic range. Has improved since last check. Recommend low carbohydrate diet and aim for at least 150 minutes of exercise per week. Thao Pinead APRN.CNP documented in this encounterLakehealth [facility]01-09-2023 History of Present illness Narrative* rTisha Llanos LPN - 11/04/2022 11:42 AM EST GI referral, office note and face sheet faxed to Dr. Sneed office at [phone]. Trisha Llanos LPN * Thao Pineda APRN.REDIPPER - 11/04/2022 8:43 AM EST 11/04/2022 Patient presents with: medication review Allergic Reaction: Would like to have some allergy testing SUBJECTIVE: This is a 62 year old that is here today for Above Complaints.. Patient would like referral to another GI specialist here in [place]. Patient frustrated that her colonoscopy she had completed in April, does not show any report in the system. Patient is unsurewhat was found. She reports she has contacted the office but has had not luck in getting answers. Wants to see another specialist due to her dissatisfaction of this. Would like refill on her mesalamine for her Chron's Asking for refill for gabapentin. Reports she takes about twice a month for a hx of spinal stenosis. Works well to relieve symptoms of neuropathy associated with it. Patient admits she does smoke marijuana as well and that this is not legally prescribed to her. HTN: Patient is compliant with meds Yes Monitors bp at home: No. Denies side effects: Yes. Chest pain: No. Dyspnea: No. Edema: occasionally- take aldactone when it occurs and it helps Palpitations: No. Syncope: No. Headache: No. Dizziness: No. HYPERLIPIDEMIA: Patient is taking medications: Yes. Patient is watching diet: Yes. Patient denies myalgias: Yes. Patient denies gi upset: Yes PAST MEDICAL HISTORY Diagnosis Date Cataracts, bilateral Cervical spondylosis with radiculopathy Crohn's disease involving terminal ileum (HCC) 01/21/2017 Dr. De Anda DEPRESSIVE DISORDER NEC 05/30/2006 Diverticulitis Esophageal reflux Essential hypertension, benign Fibromyalgia 07/25/[address] Garcia for pain management. History of tobacco use Hyperlipidemia 02/05/2013 Hypothyroidism Internal hemorrhoids without mention of complication Lumbago 05/30/2006 L4,L5 compression fracture Prediabetes 11/23/2012 single episode of A1C>6.5, possibly related to steroid injections PTSD (post-traumatic stress disorder) 2 children from [facility] Sleep apnea ALLERGIES Nickel, Penicillins, Seasonal Allergies, and Tetracycline MEDICATIONS Current Outpatient Medications Medication Sig lisinopril (ZESTRIL, PRINIVIL) 10 mg tablet Take 1 tablet by mouth once daily. atenolol (TENORMIN) 25 mg tablet Take 1 tablet by mouth once daily. THEREMS tablet Take 1 tablet by mouth once daily. spironolactone (ALDACTONE) 25 mg tablet TAKE 1 TABLET BY MOUTH EVERY DAY levothyroxine (SYNTHROID) 75 mcg tablet Take 1 tablet by mouth once daily. Take on empty stomach. For Thyroid. fluticasone (FLONASE) 50 mcg/actuation nasal spray Use 2 Sprays in each nostril once daily. Rinse mouth after use. Mesalamine (PENTASA) 500 mg CR capsule Take 2 capsules by mouth three times daily. polyethylene glycol 3350 (MIRALAX, GLYCOLAX) 17 gram/dose powder Use as directed for Miralax / Gatorade Bowel Prep Kit loratadine (CLARITIN) 10 mg tablet Take 1 tablet by mouth once daily. collagen/biotin/ascorbic acid (COLLAGEN 1500 PLUS C ORAL) Take by mouth. famotidine (PEPCID) 20 mg tablet TAKE ONE TABLET TWICE DAILY. MAY TAKE AN ADDITIONAL TABLET NEEDED. (Patient taking differently: twice daily as needed. Take one tablet twice daily. May take an additional tablet as needed.) calcium carbonate 600 mg-cholecalciferol 200 units 600 mg(1,500mg) -200 unit tab TAKE 1 TABLET BY MOUTH TWICE A DAY potassium chloride ER (KLOR-CON M20) 20 mEq tablet TAKE 2 TABLETS BY MOUTH IN THE MORNING AND 2 TABLETS IN THE EVENING atorvastatin (LIPITOR) 40 mg tablet Take 1 tablet by mouth daily at bedtime. For cholesterol. aspirin, enteric coated (ASPIRIN, ENTERIC COATED) 81 mg EC tablet Take 1 tablet by mouth once daily. gabapentin (NEURONTIN) 600 mg tablet Take 1 tablet by mouth once daily for 30 days. cyclobenzaprine (FLEXERIL) 10 mg tablet Take 1 tablet by mouth every 8 hours as needed for Muscle Spasm (or pain). FLORAJEN3 460 mg (7.5-6- 1.5 bill. cell) cap TAKE 1 CAPSULE BY MOUTH EVERY DAY Gatorade Sports Drink Use as directed for Miralax / Gatorade Bowel Prep Kit Bisacodyl (DULCOLAX) 5 mg tab Use as directed for Miralax / Gatorade Bowel Prep Kit Incontinence Pad, Liner, Disp pads 1 Units twice daily. COMPOUNDED PRESCRIPTION BIPAP 09/07, mask, supplies, and tubing COMPOUNDED PRESCRIPTION CPAP at 09/07 No current facility-administered medications for this visit. Medications and allergies reviewed by this provider. SOCIAL HISTORY Social History Tobacco Use Smoking status: Former Packs/day: 0.50 Years: 12.00 Pack years: 6.00 Types: Cigarettes Quit date: 12/25/2021 Years since quittin.8 Smokeless tobacco: Never Vaping Use Vaping Use: Never used Substance Use Topics Alcohol use: No Drug use: Not Currently Frequency: 3.0 times per week Types: Marijuana Comment: 1-2 twice a month REVIEW OF SYSTEMS All other reviewed and negative other than HPI. OBJECTIVE: BP 174/86 Pulse 64 Resp 16 Wt 83 kg (183 lb) SpO2 96% BMI 35.74 kg/m . Vital signs reviewed by this provider. APPEARANCE Well appearing, alert, in no acute distress, well-hydrated, well nourished. EYES PERRLA, conjunctiva and sclera normal. HEART RRR with normal S1 and S2, no murmurs, no gallops, no JVD appreciated LUNG clear to auscultation. No wheezes, rhonchi or rales EXTREMITIES Extremities normal, No deformities, No skin discoloration, and No edema SKIN Skin color, texture, turgor normal, no suspicious rashes or lesions to exposed skin Component Latest Ref Rng & Units 04/22/2022 WBC 3.70 - 11.00 k/uL 12.10 (H) RBC 3.90 - 5.20 m/uL 4.78 Hemoglobin 11.5 - 15.5 g/dL 15.3 Hematocrit 36.0 - 46.0 % 43.8 MCV 80.0 - 100.0 fL 91.6 MCH 26.0 - 34.0 pg 32.0 MCHC 30.5 - 36.0 g/dL 34.9 RDW-CV 11.5 - 15.0 % 11.9 Platelet Count 150 - 400 k/uL 297 MPV 9.0 - 12.7 fL 10.0 Neut% % 58.0 Abs Neut (ANC) 1.45 - 7.50 k/uL 7.01 Lymph% % 34.0 Abs Lymph 1.00 - 4.00 k/uL 4.12 (H) Ray% % 5.8 Abs Ray <0.87 k/uL 0.70 Eosin% % 1.5 Abs Eosin <0.46 k/uL 0.18 Baso% % 0.5 Abs Baso <0.11 k/uL 0.06 Immature Gran % % 0.2 IMMATURE GRANS (ABS) <0.10 k/uL 0.03 NRBC /100 WBC 0.0 Absolute nRBC <0.01 k/uL <0.01 DTYPE Auto Protein, Total 6.3 - 8.0 g/dL 8.1 (H) Albumin 3.9 - 4.9 g/dL 4.7 Calcium 8.5 - 10.2 mg/dL 9.8 Bilirubin, Total 0.2 - 1.3 mg/dL 0.3 Alkaline Phosphatase 34 - 123 U/L 75 AST 13 - 35 U/L 17 ALT 7 - 38 U/L 18 Glucose 74 - 99 mg/dL 81 BUN 7 - 21 mg/dL 14 Creatinine 0.58 - 0.96 mg/dL 0.69 Sodium 136 - 144 mmol/L 138 Potassium 3.7 - 5.1 mmol/L 4.1 Chloride 97 - 105 mmol/L 100 CO2 22 - 30 mmol/L 25 Anion Gap 9 - 18 mmol/L 13 eGFR >=60 mL/min/1.73m 98 Component Latest Ref Rng & Units 04/22/2022 WBC 3.70 - 11.00 k/uL 12.10 (H) RBC 3.90 - 5.20 m/uL 4.78 Hemoglobin 11.5 - 15.5 g/dL 15.3 Hematocrit 36.0 - 46.0 % 43.8 MCV 80.0 - 100.0 fL 91.6 MCH 26.0 - 34.0 pg 32.0 MCHC 30.5 - 36.0 g/dL 34.9 RDW-CV 11.5 - 15.0 % 11.9 Platelet Count 150 - 400 k/uL 297 MPV 9.0 - 12.7 fL 10.0 Neut% % 58.0 Abs Neut (ANC) 1.45 - 7.50 k/uL 7.01 Lymph% % 34.0 Abs Lymph 1.00 - 4.00 k/uL 4.12 (H) Ray% % 5.8 Abs Ray <0.87 k/uL 0.70 Eosin% % 1.5 Abs Eosin <0.46 k/uL 0.18 Baso% % 0.5 Abs Baso <0.11 k/uL 0.06 Immature Gran % % 0.2 IMMATURE GRANS (ABS) <0.10 k/uL 0.03 NRBC /100 WBC 0.0 Absolute nRBC <0.01 k/uL <0.01 DTYPE Auto Protein, Total 6.3 - 8.0 g/dL 8.1 (H) Albumin 3.9 - 4.9 g/dL 4.7 Calcium 8.5 - 10.2 mg/dL 9.8 Bilirubin, Total 0.2 - 1.3 mg/dL 0.3 Alkaline Phosphatase 34 - 123 U/L 75 AST 13 - 35 U/L 17 ALT 7 - 38 U/L 18 Glucose 74 - 99 mg/dL 81 BUN 7 - 21 mg/dL 14 Creatinine 0.58 - 0.96 mg/dL 0.69 Sodium 136 - 144 mmol/L 138 Potassium 3.7 - 5.1 mmol/L 4.1 Chloride 97 - 105 mmol/L 100 CO2 22 - 30 mmol/L 25 Anion Gap 9 - 18 mmol/L 13 eGFR >=60 mL/min/1.73m 98 Component Latest Ref Rng & Units 03/06/2022 Hemoglobin A1C 4.3 - 5.6 % 5.9 (H) Component Latest Ref Rng & Units 03/06/2022 Total Cholesterol, Nonfasting <200 mg/dL 140 Triglycerides, Nonfasting <150 mg/dL 171 (H) HDL Cholesterol, Nonfasting >39 mg/dL 40 LDL Cholesterol, Nonfasting <100 mg/dL 66 Non HDL Cholesterol, Nonfasting <130 mg/dL 100 VLDL Cholesterol, Nonfasting <30 mg/dL 34 (H) Total Chol/HDL Ratio, Nonfasting <5.10 mg/dL 3.50 LDL/HDL Ratio, Nonfasting <2.54 mg/dL 1.65 DTAP,TDAP,TD(1 - Tdap) Never done DILATED RETINAL EXAM due on 11/05/2019 DIABETIC FOOT EXAM due on 05/21/2022 INFLUENZA(1) due on 06/27/2022 BP CONTROLLED (<130/80) due on 08/08/2022 HBA1C due on 09/06/2022 HEPATITIS B(3 of 3 - Hep B Twinrix risk 3-dose series) due on 10/06/2022 HEPATITIS A(3 of 3 - Hep A Twinrix risk 3-dose series) due on 10/06/2022 MAMMOGRAM due on 01/24/2023 MMR(1 of 2 - Risk 2-dose series) due on 04/04/2023 MENINGOCOCCAL B: Consider based on risk(1 of 4 - Increased Risk Bexsero 2-dose series) due on 04/04/2023 SHINGRIX VACCINE(1 of 2) due on 04/04/2023 COVID-19 VACCINE(1) due on 04/04/2023 PNEUMOCOCCAL(2 - PCV) due on 03/17/2025 URINE ALBUMIN:CREATININE RATIO due on 03/06/2023 LDL CHOLESTEROL due on 03/06/2023 ANNUAL PCP TEAM CHRONIC DISEASE VISIT due on 11/04/2023 COLORECTAL CANCER SCREENING due on 05/22/2025 HEPATITIS C SCREENING Completed PAP TESTING Discontinued HPV TESTING Discontinued HIV SCREENING Discontinued ASSESSMENT/PLAN: 1. Essential hypertension, benign - ICD9: 401.1, ICD10: I10 - poor control - Recommended regular aerobic exercise. - Recommend home blood pressure monitoring, to bring results in on next visit - Goal of BP <140/90 - Recommend home or pharmacy blood pressure monitoring - Recommended no refined sugar, low refined starch, healthy oil intake (olive oil), healthy protein(fish) along the lines of the Mediterranean diet. - ASPIRIN 81 MG TABLET,DELAYED RELEASE - ATENOLOL 25 MG TABLET - COMP METABOLIC PANEL - LISINOPRIL 20 MG TABLET - follow-up in one month, sooner if needed. Bring home BP cuff to validate 2. Acquired hypothyroidism - ICD9: 244.9, ICD10: E03.9 - Instructed patient on importance of taking on an empty stomach either first thing in the morning or at bedtime. - continue current dose of Synthroid - Follow up in 6 months - LEVOTHYROXINE 75 MCG TABLET 3. Crohn's disease involving terminal ileum (HCC) - ICD9: 555.0, ICD10: K50.00 - will refill her mesalamine and fax referral to Dr. Bull who is a local GI specialist - CONSULT TO GASTROENTEROLOGY - MESALAMINE ER 500 MG CAPSULE,EXTENDED RELEASE - THEREMS TABLET - CBC + DIFF 4. Mixed hyperlipidemia - ICD9: 272.2, ICD10: E78.2 - to be determined upon return of lab results - Continue current medication. - Encouraged following a low fat, low cholesterol diet. - Discussed the benefits of regular aerobic exercise and weight loss. - Follow up in 6 months. - Encouraged following a low carbohydrate, healthy oil intake diet. - ATORVASTATIN 40 MG TABLET - COMP METABOLIC PANEL - LIPID PANEL BASIC 5. Hypokalemia - ICD9: 276.8, ICD10: E87.6 - CMP - POTASSIUM CHLORIDE ER 20 MEQ TABLET,EXTENDED RELEASE(PART/CRYST) 6. Chronic low back pain with left-sided sciatica, unspecified back pain laterality - ICD9: 724.2, 724.3, 338.29, ICD10: M54.42, G89.29 (primary diagnosis) - discussed with patient can not order gabapentin if she is using marijuana recreationally - recommend she stop using marijuana recreationally and then we can consider gabapentin or we will have her see pain management Thao Pineda APRN.CNP Prescription instructions reviewed with patient as applicable. Patient advised if symptoms do not improve or if symptoms worsen sooner, to contact their primary care physician. Potential red flag symptoms discussed with the patient. Reviewed appropriate action plan to take if red flag symptoms occur. Patient agreeable to treatment plan. I spent a total of 30 minutes on the date of the service which included preparing to see the patient, [id number] patient care, completing clinical documentation, obtaining and/or reviewing separately obtained history, performing a medically appropriate examination, counseling and educating the pat ient/family/caregiver, and ordering medications, tests, or procedures. documented in this encounterLake[facility]01-07-2023 Miscellaneous Notes* Telephone Encounter - Mary Muhammad LPN - 11/02/2022 10:18 AM EST Spoke with pt and information listed below given. Pt verbalizes understanding. Pt has scheduled apt to discuss medications. Mary Muhammad LPN * Telephone Encounter - Thao Pineda APRN.CNP - 11/01/2022 2:19 PM EST Looks like she sees GI and they order her mesalamine- recommend she follow-up with them regarding this. He gabapentin has not been prescribed for over a year and this was not prescribed by Dr. Leong. Would recommend office appointment to discuss this as well as for routine follow-up. Thao Pineda APRN.CNP * Telephone Encounter - Elen Summers Pss - 11/01/2022 10:37 AM EST Patient has been identified by name and date of : Yes Last office visit in this department: 06/17/22 Labs-04/22/22 NOV-none RX INSTRUCTIONS: Patient aware RX will be sent to pharmacy. No need to notify patient. Patient phones requesting refills as follows: Patient cancelled 10/04 thinking that appt. was just for 3 rd hep c injection and was told PCP only could give her this 3 rd injection. She was also sick at that time, but is asking when she needs to follow up with PCP office as she thought she was good for a year from last visit. Please advise the patient. Requested Prescriptions Pending Prescriptions Disp Refills Mesalamine (PENTASA) 500 mg CR capsule 540 capsule 3 Sig: Take 2 capsules by mouth three times daily. lisinopril (ZESTRIL, PRINIVIL) 10 mg tablet 90 tablet 0 Sig: Take 1 tablet by mouth once daily. gabapentin (NEURONTIN) 600 mg tablet 30 tablet 2 Sig: Take 1 tablet by mouth once daily for 30 days. atenolol (TENORMIN) 25 mg tablet 90 tablet 1 Sig: Take 1 tablet by mouth once daily. Please review and advise. Elen Summers Pss documented in this encounterLake[facility] Center10-20-2022 Miscellaneous Notes* Telephone Encounter - Hannah Blanca Pss - 08/15/2022 9:20 AM EDT Patient has been identified by name and date of : Yes Last office visit in this department: 06/17/2022 Labs-04/22/22 Labs-10/04/22 med filled 03/06/22 RX INSTRUCTIONS: Patient aware RX will be sent to pharmacy. No need to notify patient. Patient phones requesting refills as follows: Requested Prescriptions Pending Prescriptions Disp Refills lisinopril (ZESTRIL, PRINIVIL) 10 mg tablet 90 tablet 0 Sig: Take 1 tablet by mouth once daily. THEREMS tablet 90 tablet 0 Sig: Take 1 tablet by mouth once daily. Please review and advise. Hannah Evangelist Pss documented in this encounterLakehealth [facility] Center09-24-2022 Miscellaneous Notes* Telephone Encounter - Thao Pineda APRN.CNP - 07/20/2022 6:17 PM EDT Sorry this was was not meant for her. Thao Pineda APRN.CNP * Telephone Encounter - Sis Solomon LPN - 07/20/2022 9:03 AM EDT Phoned patient and went over notes from Thao Pineda [employer], patient said she did not know where thiscame from at all. She has not been seen lately and already had nerve conduction test done some timeago. * Telephone Encounter - hTao Pineda APRN.CNP - 07/19/2022 3:31 PM EDT Please call patient and let him know [facility] does not do nerve conduction testing locally. [facility] does so if he wants to complete it through them I can send order. Thao Pineda APRN.CNP documented in this encounterLakehealth [facility] Center09-23-2022 Miscellaneous Notes* Telephone Encounter - Esha Saldaña APRN.CNP - 07/19/2022 4:26 PM EDT Patient has not been seen in this office in >2 years. This will need to be filled by her PCP. * Telephone Encounter - Suzi Mauro MA - 07/19/2022 3:52 PM EDT Patient due for appt w/ Dr Castro [facility] 02/16/20 Gloria documented in this encounterLakehealth [facility] Center09-23-2022 Miscellaneous Notes* Telephone Encounter - Justa Chavez LPN - 07/19/2022 8:43 AM EDT Patient phones requesting refills as follows: Requested Prescriptions Pending Prescriptions Disp Refills spironolactone (ALDACTONE) 25 mg tablet [Pharmacy Med Name: SPIRONOLACTONE 25 MG TABLET] 90 tablet 3 Sig: TAKE 1 TABLET BY MOUTH EVERY DAY TANNA-06/17/22 Labs-06/17/22 NOV-10/04/22 med filled 05/21/21 Please review and advise. Justa Chavez LPN documented in this encounterLakehealth [facility] Center08-22-2022 Miscellaneous Notes* Telephone Encounter - Kavitha Vargas - 06/17/2022 3:50 PM EDT Patient informed and verbalized understanding. No questions at this time. Kavitha Vargas * Telephone Encounter - Kavitha Vargas - 06/17/2022 3:49 PM EDT ----- Message from Maria Del Carmen Leong MD sent at 06/17/2022 2:47 PM EDT ----- No evidence of obstruction on abdominal xray. Positive for fecal retention. Continue treatment as discussed in office. documented in this encounterLakehealth [facility] Center08-22-2022 History of Present illness Narrative* Maria Del Carmen Leong MD - 06/17/2022 10:56 AM EDT Chief Complaint Patient presents with: Follow Up: Lower abdominal pain- patient reports it's worse. Labs to be drawn after visit. HPI Isaac Rahman is a 62 year old female who presents here today for Above Complaints.. Patient states that since her appointment 2 days ago she has been taking the miralax stool softeneron a daily basis and pressure has improved. BMs have softened up and denies fever, nausea, vomiting. Last BM was in the last 24 hours. Eating bland/soft diet as recommended. Past medical history, appointments, medications, allergies reviewed. Previous Medical History PAST MEDICAL HISTORY Diagnosis Date Cataracts, bilateral Cervical spondylosis with radiculopathy Crohn's disease involving terminal ileum (HCC) 01/21/2017 Dr. De Anda DEPRESSIVE DISORDER NEC 05/30/2006 Diverticulitis Esophageal reflux Essential hypertension, benign Fibromyalgia 07/25/[address] Garcia for pain management. History of tobacco use Hyperlipidemia 02/05/2013 Hypothyroidism Internal hemorrhoids without mention of complication Lumbago 05/30/2006 L4,L5 compression fracture Prediabetes 11/23/2012 single episode of A1C>6.5, possibly related to steroid injections PTSD (post-traumatic stress disorder) 2 children from [facility] Sleep apnea Previous Surgical History PAST SURGICAL HISTORY Procedure Laterality Date APPENDECTOMY [address] noted appendix [address]ized on CT Scan in 2017 DELIVERY ONLY x 4 CHOLECYSTECTOMY 1984 Cholecystectomy COLONOSCOPY 05/22/2020 COLONOSCOPY FLX DX W/COLLJ SPEC WHEN PFRMD 11/14/03 Colonoscopy COLONOSCOPY FLX DX W/COLLJ SPEC WHEN PFRMD 11/05/04 Colonoscopy COLONOSCOPY FLX DX W/COLLJ SPEC WHEN PFRMD 08/15/16 Colonoscopy (MAC) CYSTOURETHROSCOPY 12/2006 ESOPHAGOGASTRODUODENOSCOPY TRANSORAL DIAGNOSTIC 11/14/03 EGD ESOPHAGOGASTRODUODENOSCOPY TRANSORAL DIAGNOSTIC 08/15/16 EGD (MAC) ESOPHAGOGASTRODUODENOSCOPY TRANSORAL DIAGNOSTIC 05/22/2020 EGD LAMINECTOMY W/O FFD 10/28 VERT SEG LUMBAR 2007 Laminectomy, lumbar PAST SURGICAL HISTORY OF cyst removed from Left ovary PAST SURGICAL HISTORY OF 2001 Left ovary removed PAST SURGICAL HISTORY OF 1988 right wrist reconstruction, work related injury PAST SURGICAL HISTORY OF 2005 hysterectomy, adhesion removal. STILL HAS CERVIX Family History FAMILY HISTORY Problem Relation Age of Onset Diabetes Mother Stroke Mother Cancer Father prostate Heart Father Diabetes Father Thyroid Father Hypertension Brother Stroke Brother other (car accident) Brother Cancer Maternal Grandmother Thyroid Paternal Grandmother Stroke Paternal Grandmother age 50s other (car accident) Daughter Coronary Artery Disease Son MVA Diabetes Son Type II Stroke Son Breast Cancer Paternal Aunt other (gallbladder disease) Paternal Aunt Fathers side of the family Colon Cancer Paternal cousin Patient Allergies ALLERGIES Allergen Reactions Nickel Rash Can't wear cheap jewelry Penicillins Intolerance Seasonal Allergies Unknown Tetracycline GI Upset, Other: See Comments Sensitive to light Current Medications Current Outpatient Medications on File Prior to Visit Medication Sig levothyroxine (SYNTHROID) 75 mcg tablet Take 1 tablet by mouth once daily. Take on empty stomach. For Thyroid. fluticasone (FLONASE) 50 mcg/actuation nasal spray Use 2 Sprays in each nostril once daily. Rinse mouth after use. atenolol (TENORMIN) 25 mg tablet TAKE 1 TABLET BY MOUTH EVERY DAY Mesalamine (PENTASA) 500 mg CR capsule Take 2 capsules by mouth three times daily. polyethylene glycol 3350 (MIRALAX, GLYCOLAX) 17 gram/dose powder Use as directed for Miralax / Gatorade Bowel Prep Kit Gatorade Sports Drink Use as directed for Miralax / Gatorade Bowel Prep Kit Bisacodyl (DULCOLAX) 5 mg tab Use as directed for Miralax / Gatorade Bowel Prep Kit THEREMS tablet Take 1 tablet by mouth once daily. lisinopril (ZESTRIL, PRINIVIL) 10 mg tablet Take 1 tablet by mouth once daily. loratadine (CLARITIN) 10 mg tablet Take 1 tablet by mouth once daily. collagen/biotin/ascorbic acid (COLLAGEN 1500 PLUS C ORAL) Take by mouth. famotidine (PEPCID) 20 mg tablet TAKE ONE TABLET TWICE DAILY. MAY TAKE AN ADDITIONAL TABLET NEEDED. (Patient taking differently: twice daily as needed. Take one tablet twice daily. May take an additional tablet as needed.) calcium carbonate 600 mg-cholecalciferol 200 units 600 mg(1,500mg) -200 unit tab TAKE 1 TABLET BY MOUTH TWICE A DAY Incontinence Pad, Liner, Disp pads 1 Units twice daily. potassium chloride ER (KLOR-CON M20) 20 mEq tablet TAKE 2 TABLETS BY MOUTH IN THE MORNING AND 2 TABLETS IN THE EVENING atorvastatin (LIPITOR) 40 mg tablet Take 1 tablet by mouth daily at bedtime. For cholesterol. spironolactone (ALDACTONE) 25 mg tablet Take 1 tablet by mouth once daily. (Patient taking differently: Take 25 mg by mouth once daily. Taking more PRN as becoming a bladder irritant) aspirin, enteric coated (ASPIRIN, ENTERIC COATED) 81 mg EC tablet Take 1 tablet by mouth once daily. cyclobenzaprine (FLEXERIL) 10 mg tablet Take 1 tablet by mouth every 8 hours as needed for Muscle Spasm (or pain). FLORAJEN3 460 mg (7.5-6- 1.5 bill. cell) cap TAKE 1 CAPSULE BY MOUTH EVERY DAY COMPOUNDED PRESCRIPTION BIPAP 09/07, mask, supplies, and tubing COMPOUNDED PRESCRIPTION CPAP at 09/07 gabapentin (NEURONTIN) 600 mg tablet Take 1 tablet by mouth once daily for 30 days. No current facility-administered medications on file prior to visit. Social History Social History Tobacco Use Smoking status: Former Packs/day: 0.50 Years: 12.00 Pack years: 6.00 Types: Cigarettes Quit date: 12/25/2021 Years since quittin.4 Smokeless tobacco: Never Vaping Use Vaping Use: Never used Substance Use Topics Alcohol use: No Drug use: Not Currently Frequency: 3.0 times per week Types: Marijuana Comment: 1-2 twice a month Review of Symptoms REVIEW OF SYSTEMS See HPI EXAM: BP 130/84 Pulse (!) 53 Resp 16 Wt 79.6 kg (175 lb 6.4 oz) SpO2 97% BMI 34.26 kg/m General Appearance: Well appearing, alert, in no acute distress, well-hydrated, well nourished.. Skin: Skin color, texture, turgor normal, no suspicious rashes or lesions. Abdomen: Normal abdominal exam, Abdomen soft, non-tender. Bowel sounds normal. No masses, organomegaly. Health Maintenance List DILATED RETINAL EXAM due on 11/05/2019 DIABETIC FOOT EXAM due on 05/21/2022 DTAP,TDAP,TD(1 - Tdap) due on 08/08/2022 MMR(1 of 2 - Risk 2-dose series) due on 04/04/2023 MENINGOCOCCAL B: Consider based on risk(1 of 4 - Increased Risk Bexsero 2-dose series) due on 04/04/2023 SHINGRIX VACCINE(1 of 2) due on 04/04/2023 COVID-19 VACCINE(1) due on 04/04/2023 PNEUMOCOCCAL(2 - PCV) due on 03/17/2025 INFLUENZA(1) due on 06/27/2022 BP CONTROLLED (<130/80) due on 08/08/2022 HBA1C due on 09/06/2022 HEPATITIS B(3 of 3 - Hep B Twinrix risk 3-dose series) due on 10/06/2022 HEPATITIS A(3 of 3 - Hep A Twinrix risk 3-dose series) due on 10/06/2022 MAMMOGRAM due on 01/24/2023 URINE ALBUMIN:CREATININE RATIO due on 03/06/2023 LDL CHOLESTEROL due on 03/06/2023 ANNUAL PCP TEAM CHRONIC DISEASE VISIT due on 06/17/2023 COLORECTAL CANCER SCREENING due on 05/22/2025 HEPATITIS C SCREENING Completed PAP TESTING Discontinued HPV TESTING Discontinued HIV SCREENING Discontinued ASSESSMENT/PLAN: 1. Periumbilical abdominal pain - ICD9: 789.05, ICD10: R10.33 (primary diagnosis) Improved. Reviewed xray with patient which did not show evidence of obstruction pattern with some stool Continue stool softener as discussed and will call with official results. 2. Acute constipation - ICD9: 564.00, ICD10: K59.00 Improved. Maria Del Carmen Leong MD documented in this encounterL[facility] History of Present illness Narrative* Hattie Rosales RT(R) - 06/17/2022 9:40 AM EDT Radiology Service Progress Note PATIENT NAME: Isaac Rahman DATE OF SERVICE: June 17, 2022 TIME: 10:03 AM PATIENT IDENTITY VERIFICATION COMPLETED USING TWO (2) IDENTIFIERS: Name and Date of confirmedby patient verbally. FALL SCREENING: Has the patient had 2 falls in the last year or 1 fall with injury or currently using an Ambulatory Assistive Device (Walker, Cane, Wheelchair, Crutches, etc.)? No PATIENT GENDER DATA: Female. status: : No status: NO. PATIENT RELEVANT IMPLANT DATA REVIEWED: Not Applicable RADIOLOGY DEPARTMENT: General X-ray: Exam(s) Completed: Abdomen X-Ray: Abdomen PERIPHERAL IV DATA: Not applicable SIGNED BY: RT Adrienne(R) June 17, 2022 10:03 AM documented in this encounterL[facility]08-20-2022 History of Present illness Narrative* Maria Del Carmen Leong MD - 06/15/2022 11:49 AM EDT Chief Complaint Patient presents with: Abdominal Pain: And pressure. HPI Isaac Rahman is a 62 year old female with PMH: crohns disease and diverticulitis who presents heretoday for Above Complaints. Patient complaining today of abdominal constant pressure which started on RLQ and is moving toward her LLQ. Started 3 days ago and is gradually worsening. Currently 02/03. Not treating with anything OTC, but states that they told her to take Miralax and stool softener at her last appointment with GI. Ran out of rx 5 days ago. Last BM was this morning. Admits to hard stools over the last month. Denies fever/chills, nausea, vomiting, hematochezia, melena, diarrhea, urinary symptoms. Notes that she had a colonoscopy about a month ago and has not been called regarding her results and does not have follow up appointment. Discussed we do not have her official reports from her scope,so she will have to contact their office for records. Past medical history, appointments, medications, allergies reviewed. Previous Medical History PAST MEDICAL HISTORY Diagnosis Date Cataracts, bilateral Cervical spondylosis with radiculopathy Crohn's disease involving terminal ileum (HCC) 01/21/2017 Dr. De Anda DEPRESSIVE DISORDER NEC 05/30/2006 Diverticulitis Esophageal reflux Essential hypertension, benign Fibromyalgia 07/25/[address] Garcia for pain management. History of tobacco use Hyperlipidemia 02/05/2013 Hypothyroidism Internal hemorrhoids without mention of complication Lumbago 05/30/2006 L4,L5 compression fracture Prediabetes 11/23/2012 single episode of A1C>6.5, possibly related to steroid injections PTSD (post-traumatic stress disorder) 2 children from [facility] Sleep apnea Previous Surgical History PAST SURGICAL HISTORY Procedure Laterality Date APPENDECTOMY 1988 noted appendix visulaized on CT Scan in 2017 DELIVERY ONLY x 4 CHOLECYSTECTOMY 1984 Cholecystectomy COLONOSCOPY 05/22/2020 COLONOSCOPY FLX DX W/COLLJ SPEC WHEN PFRMD 11/14/03 Colonoscopy COLONOSCOPY FLX DX W/COLLJ SPEC WHEN PFRMD 11/05/04 Colonoscopy COLONOSCOPY FLX DX W/COLLJ SPEC WHEN PFRMD 08/15/16 Colonoscopy (MAC) CYSTOURETHROSCOPY 12/2006 ESOPHAGOGASTRODUODENOSCOPY TRANSORAL DIAGNOSTIC 11/14/03 EGD ESOPHAGOGASTRODUODENOSCOPY TRANSORAL DIAGNOSTIC 08/15/16 EGD (MAC) ESOPHAGOGASTRODUODENOSCOPY TRANSORAL DIAGNOSTIC 05/22/2020 EGD LAMINECTOMY W/O FFD 10/28 VERT SEG LUMBAR 2007 Laminectomy, lumbar PAST SURGICAL HISTORY OF cyst removed from Left ovary PAST SURGICAL HISTORY OF 2001 Left ovary removed PAST SURGICAL HISTORY OF 1988 right wrist reconstruction, work related injury PAST SURGICAL HISTORY OF 2004 hysterectomy, adhesion removal. STILL HAS CERVIX Family History FAMILY HISTORY Problem Relation Age of Onset Diabetes Mother Stroke Mother Cancer Father prostate Heart Father Diabetes Father Thyroid Father Hypertension Brother Stroke Brother other (car accident) Brother Cancer Maternal Grandmother Thyroid Paternal Grandmother Stroke Paternal Grandmother age 50s other (car accident) Daughter Coronary Artery Disease Son MVA Diabetes Son Type II Stroke Son Breast Cancer Paternal Aunt other (gallbladder disease) Paternal Aunt Fathers side of the family Colon Cancer Paternal cousin Patient Allergies ALLERGIES Allergen Reactions Nickel Rash Can't wear cheap jewelry Penicillins Intolerance Seasonal Allergies Unknown Tetracycline GI Upset, Other: See Comments Sensitive to light Current Medications Current Outpatient Medications on File Prior to Visit Medication Sig levothyroxine (SYNTHROID) 75 mcg tablet Take 1 tablet by mouth once daily. Take on empty stomach. For Thyroid. atenolol (TENORMIN) 25 mg tablet TAKE 1 TABLET BY MOUTH EVERY DAY Mesalamine (PENTASA) 500 mg CR capsule Take 2 capsules by mouth three times daily. lisinopril (ZESTRIL, PRINIVIL) 10 mg tablet Take 1 tablet by mouth once daily. loratadine (CLARITIN) 10 mg tablet Take 1 tablet by mouth once daily. fluticasone (FLONASE) 50 mcg/actuation nasal spray Use 2 Sprays in each nostril once daily. Rinse mouth after use. collagen/biotin/ascorbic acid (COLLAGEN 1500 PLUS C ORAL) Take by mouth. famotidine (PEPCID) 20 mg tablet TAKE ONE TABLET TWICE DAILY. MAY TAKE AN ADDITIONAL TABLET NEEDED. (Patient taking differently: twice daily as needed. Take one tablet twice daily. May take an additional tablet as needed.) calcium carbonate 600 mg-cholecalciferol 200 units 600 mg(1,500mg) -200 unit tab TAKE 1 TABLET BY MOUTH TWICE A DAY potassium chloride ER (KLOR-CON M20) 20 mEq tablet TAKE 2 TABLETS BY MOUTH IN THE MORNING AND 2 TABLETS IN THE EVENING atorvastatin (LIPITOR) 40 mg tablet Take 1 tablet by mouth daily at bedtime. For cholesterol. spironolactone (ALDACTONE) 25 mg tablet Take 1 tablet by mouth once daily. (Patient taking differently: Take 25 mg by mouth once daily. Taking more PRN as becoming a bladder irritant) aspirin, enteric coated (ASPIRIN, ENTERIC COATED) 81 mg EC tablet Take 1 tablet by mouth once daily. cyclobenzaprine (FLEXERIL) 10 mg tablet Take 1 tablet by mouth every 8 hours as needed for Muscle Spasm (or pain). FLORAJEN3 460 mg (7.5-6- 1.5 bill. cell) cap TAKE 1 CAPSULE BY MOUTH EVERY DAY COMPOUNDED PRESCRIPTION BIPAP 09/07, mask, supplies, and tubing COMPOUNDED PRESCRIPTION CPAP at 09/07 polyethylene glycol 3350 (MIRALAX, GLYCOLAX) 17 gram/dose powder Use as directed for Miralax / Gatorade Bowel Prep Kit Gatorade Sports Drink Use as directed for Miralax / Gatorade Bowel Prep Kit Bisacodyl (DULCOLAX) 5 mg tab Use as directed for Miralax / Gatorade Bowel Prep Kit THEREMS tablet Take 1 tablet by mouth once daily. (Patient not taking: Reported on 06/15/2022) Incontinence Pad, Liner, Disp pads 1 Units twice daily. gabapentin (NEURONTIN) 600 mg tablet Take 1 tablet by mouth once daily for 30 days. No current facility-administered medications on file prior to visit. Social History Social History Tobacco Use Smoking status: Former Packs/day: 0.50 Years: 12.00 Pack years: 6.00 Types: Cigarettes Quit date: 12/25/2021 Years since quittin.4 Smokeless tobacco: Never Vaping Use Vaping Use: Never used Substance Use Topics Alcohol use: No Drug use: Not Currently Frequency: 3.0 times per week Types: Marijuana Comment: 1-2 twice a month Review of Symptoms REVIEW OF SYSTEMS See HPI EXAM: BP 150/84 Pulse (!) 57 Resp 16 Wt 79.5 kg (175 lb 3.2 oz) SpO2 96% BMI 34.22 kg/m General Appearance: Well appearing, alert, in no acute distress, well-hydrated, well nourished.. Skin: Skin color, texture, turgor normal, no suspicious rashes or lesions. Lungs: Lungs clear to auscultation. No wheezing, rhonchi, rales.. Heart: RRR without murmur, gallop, or rubs. No ectopy. Abdomen: Abdomen soft. Bowel sounds normal. No masses, organomegaly, Negative CVA tenderness, Positive findings: tenderness mild Periumbilical without guarding or rebound. Health Maintenance List DILATED RETINAL EXAM due on 11/05/2019 DIABETIC FOOT EXAM due on 05/21/2022 DTAP,TDAP,TD(1 - Tdap) due on 08/08/2022 MMR(1 of 2 - Risk 2-dose series) due on 04/04/2023 MENINGOCOCCAL B: Consider based on risk(1 of 4 - Increased Risk Bexsero 2-dose series) due on 04/04/2023 SHINGRIX VACCINE(1 of 2) due on 04/04/2023 COVID-19 VACCINE(1) due on 04/04/2023 PNEUMOCOCCAL(2 - PCV) due on 03/17/2025 INFLUENZA(1) due on 06/27/2022 BP CONTROLLED (<130/80) due on 08/08/2022 HBA1C due on 09/06/2022 HEPATITIS B(3 of 3 - Hep B Twinrix risk 3-dose series) due on 10/06/2022 HEPATITIS A(3 of 3 - Hep A Twinrix risk 3-dose series) due on 10/06/2022 MAMMOGRAM due on 01/24/2023 URINE ALBUMIN:CREATININE RATIO due on 03/06/2023 LDL CHOLESTEROL due on 03/06/2023 ANNUAL PCP TEAM CHRONIC DISEASE VISIT due on 04/22/2023 COLORECTAL CANCER SCREENING due on 05/22/2025 HEPATITIS C SCREENING Completed PAP TESTING Discontinued HPV TESTING Discontinued HIV SCREENING Discontinued ASSESSMENT/PLAN: 1. Periumbilical abdominal pain - ICD9: 789.05, ICD10: R10.33 (primary diagnosis) Possible constipation vs diverticulitis vs bowel obstruction vs UTI. UA today shows moderate blood,otherwise normal. Will send for culture. Obtain KUB today. Discussed clear liquid diet over the weekend. Resume miralax and stool softener. Red flags for re-assessment reviewed with patient in detail. F/u for repeat exam on Friday. - XR ABDOMEN 1V SUPINE - UA DIP, URINE (POC) 2. Seasonal allergies - ICD9: 477.9, ICD10: J30.2 Requesting refill. - FLUTICASONE PROPIONATE 50 MCG/ACTUATION NASAL SPRAY,SUSPENSION 3. Acute constipation - ICD9: 564.00, ICD10: K59.00 See above. - XR ABDOMEN 1V SUPINE Maria Del Carmen Leong MD documented in this encounterL[facility]08-20-2022 Miscellaneous Notes* Telephone Encounter - Sylvia Sanchez RN - 06/15/2022 9:22 AM EDT Patient calls and is asking about the results of colonoscopy that she had done in April. Patient states that she is starting to get pressure in her lower abdomen again. Patient also requesting a refill on levothyroxine. Patient scheduled appointment with provider today. Please review and advise, Sylvia Sanchez RN documented in this encounterL[facility]07-14-2022 Miscellaneous Notes* Operative Report - Lulú Bean MD - 05/09/2022 9:43 AM EDT OPERATIVE/PROCEDURE REPORT LOG ID: [id number] Surgery/Procedure Date: Incision/Procedure Start Time: 9:52 AM Incision Close/Procedure End Time: 10:04 AM Surgeon(s)/Proceduralist(s) and Wheat Washer(s): Surgeon(s) and Role: * Lulú Bean MD - Proceduralist No Additional Staff Procedure(s): Colonoscopy Anesthesia: Monitored anesthesia Care (MAC) Brief History: 62/F, known c/o- crohn's disease on treatment, with h/o- recent episode of acute diverticulitis for colonoscopy Procedure Details: The patient was placed in the left lateral decubitus position. A digital rectal exam was performed and this was normal. The Olympus colonoscope was introduced into the rectum and advanced to the cecum. The procedure was not technically difficult. The cecum was identified by the ap pendiceal orifice and the ileocecal valve. The bowel preparation was good and the total withdrawal time was 7 minutes. The scope was then slowly withdrawn and the mucosal folds examined in detail. Cecum- Polyps- none Hal-Terminal ileum- surgical changes with erosion Ascending colon- Polyps- none; Hepatic flexure- Polyps- none; Transverse colon- Polyps- none; Splenic flexure- Polyps- none Descending colon- Polyps- none; Sigmoid colon- Polyps- none; Rectum- Polyps- none; Retroflexion- hemorrhoids moderate moderate [place]-diverticulosis Pre-Op/Pre-Procedure Diagnosis: H/o- acute diverticulitis Post-Op/Post-Procedure Diagnosis: Moderate [place]-diverticulosis Specimens: See above EBL: None Complications: None Recommendations: Continue current medications Follow up pathology Repeat colonoscopy in 5 years Follow up in GI clinic No qualified resident/fellow was available. Lulú Bean MD SIGNATURE: Lulú Bean MD PATIENT NAME: Isaac Rahman DATE: May 09, 2022 TIME: 10:14 AM PAGER/CONTACT #: [phone] documented in this encounterLakehealth [facility]07-14-2022 History and physical note * Jennifer Hull APRN.REDIPPER - 05/09/2022 9:15 AM EDT HISTORY AND PHYSICAL EXAMINATION SERVICE DATE: 05/09/2022 SERVICE TIME: 8:44 AM PRIMARY CARE PHYSICIAN: Maria Del Carmen Leong MD REASON FOR VISIT: Isaac Rahman is a 62 year old female who is scheduled for colonoscopy at the request of Dr. Bean for routine H&P. The patient has the following: ACTIVE PROBLEM LIST Essential Hypertension, Benign Sleep Apnea Hyperlipidemia Cervical Spondylosis Without Myelopathy Gerd (Gastroesophageal Reflux Disease) Depression Acquired Hypothyroidism Positive Urine Drug Screen Fibromyalgia Smoker Low Back Pain With Left-Sided Sciatica Crohn's Disease Involving Terminal Ileum (Hcc) Loose Body in Knee Screening for Genitourinary Condition Punctate Keratitis, Bilateral Hyperopia of Both Eyes With Astigmatism and Presbyopia Coronary Artery Disease Involving [place] Coronary Artery of [place] Heart Without Angina Pectoris Prediabetes Ptsd (Post-Traumatic Stress Disorder) History of Tobacco Use Subjective CHIEF COMPLAINT: Crohn's disease, diverticulitis HPI: Patient is a 62 year old female who presents to endo for the above procedure. Pt has a history of Crohns and diverticulitis. Pt presented to the ED 2 months ago with a sever flare of diverticulitis. Pt states that she LLQ pain after eating for the last 3 months. Her last colonoscopy was 2 years ago. Denies, Nausea, vomiting, constipation, diarrhea, hemtochezia at this time. Patient agrees to proceed with procedure. PAST MEDICAL HISTORY Diagnosis Date Cataracts, bilateral Cervical spondylosis with radiculopathy Crohn's disease involving terminal ileum (HCC) 01/21/2017 Dr. De Anda DEPRESSIVE DISORDER NEC 05/30/2006 Diverticulitis Esophageal reflux Essential hypertension, benign Fibromyalgia 07/25/[address] Garcia for pain management. History of tobacco use Hyperlipidemia 02/05/2013 Hypothyroidism Internal hemorrhoids without mention of complication Lumbago 05/30/2006 L4,L5 compression fracture Prediabetes 11/23/2012 single episode of A1C>6.5, possibly related to steroid injections PTSD (post-traumatic stress disorder) 2 children from [facility] Sleep apnea PAST SURGICAL HISTORY Procedure Laterality Date APPENDECTOMY 1988 noted appendix visulaized on CT Scan in 2016 DELIVERY ONLY x 4 CHOLECYSTECTOMY 1984 Cholecystectomy COLONOSCOPY 05/22/2020 COLONOSCOPY FLX DX W/COLLJ SPEC WHEN PFRMD 11/14/03 Colonoscopy COLONOSCOPY FLX DX W/COLLJ SPEC WHEN PFRMD 11/05/04 Colonoscopy COLONOSCOPY FLX DX W/COLLJ SPEC WHEN PFRMD 08/15/16 Colonoscopy (MAC) CYSTOURETHROSCOPY 12/2006 ESOPHAGOGASTRODUODENOSCOPY TRANSORAL DIAGNOSTIC 11/14/03 EGD ESOPHAGOGASTRODUODENOSCOPY TRANSORAL DIAGNOSTIC 08/15/16 EGD (MAC) ESOPHAGOGASTRODUODENOSCOPY TRANSORAL DIAGNOSTIC 05/22/2020 EGD LAMINECTOMY W/O FFD 10/28 VERT SEG LUMBAR 2008 Laminectomy, lumbar PAST SURGICAL HISTORY OF cyst removed from Left ovary PAST SURGICAL HISTORY OF 2001 Left ovary removed PAST SURGICAL HISTORY OF 1988 right wrist reconstruction, work related injury PAST SURGICAL HISTORY OF 2004 hysterectomy, adhesion removal. STILL HAS CERVIX FAMILY HISTORY Problem Relation Age of Onset Diabetes Mother Stroke Mother Cancer Father prostate Heart Father Diabetes Father Thyroid Father Hypertension Brother Stroke Brother other (car accident) Brother Cancer Maternal Grandmother Thyroid Paternal Grandmother Stroke Paternal Grandmother age 50s other (car accident) Daughter Coronary Artery Disease Son MVA Diabetes Son Type II Stroke Son Breast Cancer Paternal Aunt other (gallbladder disease) Paternal Aunt Fathers side of the family Colon Cancer Paternal cousin SOCIAL HISTORY: Social History Tobacco Use Smoking status: Former Smoker Packs/day: 0.50 Years: 12.00 Pack years: 6.00 Types: Cigarettes Quit date: 12/25/2021 Years since quittin.3 Smokeless tobacco: Never Used Vaping Use Vaping Use: Never used Substance Use Topics Alcohol use: No Drug use: Not Currently Frequency: 3.0 times per week Types: Marijuana Comment: 1-2 twice a month Prior to Admission medications as of 05/09/22 0817 Medication Sig Last Dose Taking atenolol (TENORMIN) 25 mg tablet TAKE 1 TABLET BY MOUTH EVERY DAY 05/08/2022 at Unknown time Yes Mesalamine (PENTASA) 500 mg CR capsule Take 2 capsules by mouth three times daily. 05/08/2022 at Unknown time Yes Bisacodyl (DULCOLAX) 5 mg tab Use as directed for Miralax / Gatorade Bowel Prep Kit 05/08/2022 at Unknown time Yes levothyroxine (SYNTHROID) 75 mcg tablet Take 1 tablet by mouth once daily. Take on empty stomach. For Thyroid. 05/09/2022 at Unknown time Yes lisinopril (ZESTRIL, PRINIVIL) 10 mg tablet Take 1 tablet by mouth once daily. 05/08/2022 at Unknowntime Yes loratadine (CLARITIN) 10 mg tablet Take 1 tablet by mouth once daily. 05/08/2022 at Unknown time Yes fluticasone (FLONASE) 50 mcg/actuation nasal spray Use 2 Sprays in each nostril once daily. Rinse mouth after use. 05/09/2022 at Unknown time Yes atorvastatin (LIPITOR) 40 mg tablet Take 1 tablet by mouth daily at bedtime. For cholesterol. 2022 at Unknown time Yes polyethylene glycol 3350 (MIRALAX, GLYCOLAX) 17 gram/dose powder Use as directed for Miralax / Gatorade Bowel Prep Kit Unknown at Unknown time Gatorade Sports Drink Use as directed for Miralax / Gatorade Bowel Prep Kit Unknown at Unknown time THEREMS tablet Take 1 tablet by mouth once daily. Unknown at Unknown time collagen/biotin/ascorbic acid (COLLAGEN 1500 PLUS C ORAL) Take by mouth. Unknown at Unknown time famotidine (PEPCID) 20 mg tablet TAKE ONE TABLET TWICE DAILY. MAY TAKE AN ADDITIONAL TABLET NEEDED. Patient taking differently: twice daily as needed. Take one tablet twice daily. May take an additional tablet as needed. Unknown at as needed calcium carbonate 600 mg-cholecalciferol 200 units 600 mg(1,500mg) -200 unit tab TAKE 1 TABLET BY MOUTH TWICE A DAY 05/05/2022 at Unknown time Incontinence Pad, Liner, Disp pads 1 Units twice daily. Unknown at Unknown time potassium chloride ER (KLOR-CON M20) 20 mEq tablet TAKE 2 TABLETS BY MOUTH IN THE MORNING AND 2 TABLETS IN THE EVENING 2022 at Unknown time spironolactone (ALDACTONE) 25 mg tablet Take 1 tablet by mouth once daily. Patient taking differently: Take 25 mg by mouth once daily. Taking more PRN as becoming a bladder irritant 05/06/2022 at Unknown time aspirin, enteric coated (ASPIRIN, ENTERIC COATED) 81 mg EC tablet Take 1 tablet by mouth once daily. 05/05/2022 at Unknown time gabapentin (NEURONTIN) 600 mg tablet Take 1 tablet by mouth once daily for 30 days. cyclobenzaprine (FLEXERIL) 10 mg tablet Take 1 tablet by mouth every 8 hours as needed for Muscle Spasm (or pain). Unknown at as needed FLORAJEN3 460 mg (7.5-6- 1.5 bill. cell) cap TAKE 1 CAPSULE BY MOUTH EVERY DAY 2022 at Unknowntime COMPOUNDED PRESCRIPTION BIPAP 09/07, mask, supplies, and tubing Unknown at Unknown time COMPOUNDED PRESCRIPTION CPAP at 09/07 Unknown at Unknown time No medication comments found. ALLERGIES Allergen Reactions Nickel Rash Can't wear cheap jewelry Penicillins Intolerance Seasonal Allergies Unknown Tetracycline GI Upset, Other: See Comments Sensitive to light REVIEW OF SYSTEMS: PAIN ASSESSMENT: Pain Pain Level: 4 Acceptable level: 3 Pain Location: Abdomen Pain Assessment (RN/ICT SUPPORT ENGINEER): Assessment Description: Cramping Tool: Verbal (Numeric Rating or Visual Analog Scale) General: Denies fever, chills, and unexpected weight change. Neuro: Denies dizziness and headaches. Respiratory: Denies SOB or productive cough, +LINDY Cardiovascular: Denies CP and palpitations. +HTN, HLD GI: see HPI : Denies dysuria. Endocrine: No history of diabetes. + hypothyroidism Hematology: Denies history of bleeding or clotting disorder. Musculoskeletal: +joint pain and swelling, knees Skin: Denies open sores and rashes. Objective PHYSICAL EXAM: VITALS: BP 126/54 Pulse 63 Temp (Src) 97.8 (Temporal) Resp 12 Ht 5' 0 (1.52m) Wt 170 lb (77.1kg) SpO2 98% BMI 33.20 kg/(m^2). O2 Therapy: Room Air General: NAD. Cooperative. Skin: Skin is warm, no rashes, and no open sores. HEENT: Normocephalic. Cardiovascular: Normal S1 & S2. RRR, No murmur. Lungs: CTA Bilaterally. No respiratory distress. Abdomen: Soft, nontender, non-distended. Bowel sounds normal in all four quadrants. Extremities: No edema. Neurological: Alert and oriented to person, place, and time. Pulses: radial pulses +2 Diagnostic tests reviewed for today's visit: Lab Value Units Date High Low HB 15.3 g/dL 04/22/2022 15.5 11.5 HCT 43.8 % 04/22/2022 46.0 36.0 WBC 12.10 k/uL 04/22/2022 11.00 3.70 PLT 297 k/uL 04/22/2022 400 150 NA 138 mmol/L 04/22/2022 144 136 K 4.1 mmol/L 04/22/2022 5.1 3.7 GLUC 81 mg/dL 04/22/2022 99 74 BUN 14 mg/dL 04/22/2022 21 7 CREAT 0.69 mg/dL 04/22/2022 0.96 0.58 PTSEC No results within date range. INR No results within date range. APTT No results within date range. ALT 18 U/L 04/22/2022 38 7 AST 17 U/L 04/22/2022 35 13 TBILI 0.3 mg/dL 04/22/2022 1.3 0.2 TSH 2.090 mIU/L 03/06/2022 4.200 0.270 Lab Value Units Date High Low HCGQT No results within date range. UHCG No results within date range. HCG, BODY* No results within date range. Lab Value Units Date High Low ABORHD No results within date range. ABSCREEN No results within date range. Assessment/Plan ANESTHESIA FINDINGS: Significant Anesthesia Considerations: None Patient has the following medical conditions which may affect nidia-operative course HTN - Well controlled, on medication Hyperlipidemia - statin therapy LINDY - CPAP Smoker - quit 12/2021, 6 pack years PLAN Procedure Diagnosis: Crohn's disease involving terminal ileum (HCC) [K50.00] Sigmoid diverticulitis [K57.32] Planned Procedure:colonoscopy Planned Anesthetic: MAC SIGNATURE: Jennifer Hull APRN.CNP PATIENT NAME: Isaac Rahman DATE: May 09, 2022 TIME: 8:44 AM PAGER/CONTACT #: documented in this encounterL[facility] History of Present illness Narrative* Ema Hanna LPN - 05/06/2022 10:57 AM EDT Patient presents for Twinrix vaccine. Denies any problems at this time. Tolerated injection well. Ema Hanna LPN documented in this encounterL[facility]06-29-2022 Miscellaneous Notes* Telephone Encounter - Olivia Romo LPN - 04/24/2022 10:44 AM EDT Spoke with pt gave information provided. Pt voices understanding. * Telephone Encounter - Lzi Bean APRN.CNP - 04/24/2022 10:30 AM EDT Macrobid ATB sent to pharmacy ([facility]) on Sunday 04/22. Diflucan also sent at this same time. Have her touch base with me in 1 week if symptoms persist to discuss symptoms and reorder blood work then if needed. Thank you, Liz Bean APRN.CNP * Telephone Encounter - Justa Chavez LPN - 04/24/2022 9:28 AM EDT Patient notified of results, verbalizes understanding of instructions. Pt would like to have the ATB for UTI, Diflucan and lab orders placed. Justa Chavez LPN * Telephone Encounter - Liz Bean APRN.CNP - 04/24/2022 7:54 AM EDT Please call patient and let her know that the blood work results showed a slightly elevated WBC at 12 and slightly elevated lipase level of 91. However, the CT scan was negative for any acute infection in the abdomen/pelvis including diverticulitis. Therefore, no need to restart antibiotic regimen for diverticulitis. I suggest continuing antibiotic for UTI to see if symptoms improve. Urine culture is still pending.If symptoms persist or do not improve within the next week, we can repeat blood work and see if WBCis worsening or improving. Upcoming colonoscopy will give further information. Thank you, Liz Bean APRN.CNP * Telephone Encounter - Sylvia Sanchez RN - 04/23/2022 2:40 PM EDT Patient calls and states that Liz had ordered lab tests and CT Scan yesterday at her appointment. Patient asking about the results of these tests? Please review and advise, Sylvia Sanchez RN documented in this encounterL[facility]06-27-[facility]22 History of Present illness Narrative* Liz Bean APRN.REDIPPER - 04/22/2022 2:54 PM EDT Chief Complaint Patient presents with: Abdominal Pain HPI Isaac Rahman is a 61 year old female who presents here today for Above Complaints.. Isaac is an established pateint of Dr. Dang MD. Isaac is a new patient to me today. Seen in [place] ED 02/25/22 d/t LLQ abd pain. Dx with acute diverticulitis. WBC 18. Started IV ATB and discharged on PO after WBC decreased to 11. Saw Dr. Leong on 03/06 -- Symptoms were improving. Notified Dr. Leong via [facility] on 03/08 that the pain had returned. He had sent over additional Cipro and flagyl x [address] Leong again on 04/04 where pt reports feeling confident that her symptoms have completely resolved. Had 1 more day left of ATB at this time. Remained on soft diet. Today... Pt reports discomfort to LLQ beginning again on Friday. Reports very similar pain to diverticulitis flares recently but not as severe yet. Reports chills and sweating/diaphoertic on Friday. No fevers at all -- has been checking every day. Discomfort is now spreading to RLQ as well. Reports pelvic cramping or pressure with intermittent stabbing pain. Denies any vaginal bleeding. Does reports itchiness and mild white vaginal discharge. No ATB since 04/05. Denies any dysuria, urinary frequency,or urinary urgency. Still on soft, bland diet. Concerned for appendicitis d/t RLQ pain -- new to patient. Has EGD and colonoscopy scheduled for May 09 so wanted to make sure this was all clear beforehand. Past medical history, appointments, medications, allergies reviewed. Previous Medical History PAST MEDICAL HISTORY Diagnosis Date Cataracts, bilateral Cervical spondylosis with radiculopathy Crohn's disease involving terminal ileum (HCC) 01/21/2017 Dr. De Anda DEPRESSIVE DISORDER NEC 05/30/2006 Diverticulitis Esophageal reflux Essential hypertension, benign Fibromyalgia 07/25/[address] Garcia for pain management. History of tobacco use Hyperlipidemia 02/05/2013 Hypothyroidism Internal hemorrhoids without mention of complication Lumbago 05/30/2006 L4,L5 compression fracture Prediabetes 11/23/2012 single episode of A1C>6.5, possibly related to steroid injections PTSD (post-traumatic stress disorder) 2 children from [facility] Sleep apnea Previous Surgical History PAST SURGICAL HISTORY Procedure Laterality Date APPENDECTOMY 1988 noted appendix visulaized on CT Scan in 2017 DELIVERY ONLY x 4 CHOLECYSTECTOMY 1984 Cholecystectomy COLONOSCOPY 05/22/2020 COLONOSCOPY FLX DX W/COLLJ SPEC WHEN PFRMD 11/14/03 Colonoscopy COLONOSCOPY FLX DX W/COLLJ SPEC WHEN PFRMD 11/05/04 Colonoscopy COLONOSCOPY FLX DX W/COLLJ SPEC WHEN PFRMD 08/15/16 Colonoscopy (MAC) CYSTOURETHROSCOPY 12/2006 ESOPHAGOGASTRODUODENOSCOPY TRANSORAL DIAGNOSTIC 11/14/03 EGD ESOPHAGOGASTRODUODENOSCOPY TRANSORAL DIAGNOSTIC 08/15/16 EGD (MAC) ESOPHAGOGASTRODUODENOSCOPY TRANSORAL DIAGNOSTIC 05/22/2020 EGD LAMINECTOMY W/O FFD 10/28 VERT SEG LUMBAR 2007 Laminectomy, lumbar PAST SURGICAL HISTORY OF cyst removed from Left ovary PAST SURGICAL HISTORY OF 2001 Left ovary removed PAST SURGICAL HISTORY OF 1988 right wrist reconstruction, work related injury PAST SURGICAL HISTORY OF 2004 hysterectomy, adhesion removal. STILL HAS CERVIX Family History FAMILY HISTORY Problem Relation Age of Onset Diabetes Mother Stroke Mother Cancer Father prostate Heart Father Diabetes Father Thyroid Father Hypertension Brother Stroke Brother other (car accident) Brother Cancer Maternal Grandmother Thyroid Paternal Grandmother Stroke Paternal Grandmother age 50s other (car accident) Daughter Coronary Artery Disease Son MVA Diabetes Son Type II Stroke Son Breast Cancer Paternal Aunt other (gallbladder disease) Paternal Aunt Fathers side of the family Colon Cancer Paternal cousin Patient Allergies ALLERGIES Allergen Reactions Nickel Rash Can't wear cheap jewelry Penicillins Intolerance Seasonal Allergies Unknown Tetracycline GI Upset, Other: See Comments Sensitive to light Current Medications Current Outpatient Medications on File Prior to Visit Medication Sig atenolol (TENORMIN) 25 mg tablet TAKE 1 TABLET BY MOUTH EVERY DAY Mesalamine (PENTASA) 500 mg CR capsule Take 2 capsules by mouth three times daily. polyethylene glycol 3350 (MIRALAX, GLYCOLAX) 17 gram/dose powder Use as directed for Miralax / Gatorade Bowel Prep Kit Gatorade Sports Drink Use as directed for Miralax / Gatorade Bowel Prep Kit Bisacodyl (DULCOLAX) 5 mg tab Use as directed for Miralax / Gatorade Bowel Prep Kit THEREMS tablet Take 1 tablet by mouth once daily. levothyroxine (SYNTHROID) 75 mcg tablet Take 1 tablet by mouth once daily. Take on empty stomach. For Thyroid. lisinopril (ZESTRIL, PRINIVIL) 10 mg tablet Take 1 tablet by mouth once daily. loratadine (CLARITIN) 10 mg tablet Take 1 tablet by mouth once daily. fluticasone (FLONASE) 50 mcg/actuation nasal spray Use 2 Sprays in each nostril once daily. Rinse mouth after use. collagen/biotin/ascorbic acid (COLLAGEN 1500 PLUS C ORAL) Take by mouth. famotidine (PEPCID) 20 mg tablet TAKE ONE TABLET TWICE DAILY. MAY TAKE AN ADDITIONAL TABLET NEEDED. (Patient taking differently: twice daily as needed. Take one tablet twice daily. May take an additional tablet as needed. ) calcium carbonate 600 mg-cholecalciferol 200 units 600 mg(1,500mg) -200 unit tab TAKE 1 TABLET BY MOUTH TWICE A DAY Incontinence Pad, Liner, Disp pads 1 Units twice daily. potassium chloride ER (KLOR-CON M20) 20 mEq tablet TAKE 2 TABLETS BY MOUTH IN THE MORNING AND 2 TABLETS IN THE EVENING atorvastatin (LIPITOR) 40 mg tablet Take 1 tablet by mouth daily at bedtime. For cholesterol. spironolactone (ALDACTONE) 25 mg tablet Take 1 tablet by mouth once daily. (Patient taking differently: Take 25 mg by mouth once daily. Taking more PRN as becoming a bladder irritant ) aspirin, enteric coated (ASPIRIN, ENTERIC COATED) 81 mg EC tablet Take 1 tablet by mouth once daily. gabapentin (NEURONTIN) 600 mg tablet Take 1 tablet by mouth once daily for 30 days. cyclobenzaprine (FLEXERIL) 10 mg tablet Take 1 tablet by mouth every 8 hours as needed for Muscle Spasm (or pain). FLORAJEN3 460 mg (7.5-6- 1.5 bill. cell) cap TAKE 1 CAPSULE BY MOUTH EVERY DAY COMPOUNDED PRESCRIPTION BIPAP 09/07, mask, supplies, and tubing COMPOUNDED PRESCRIPTION CPAP at 09/07 No current facility-administered medications on file prior to visit. Social History Social History Tobacco Use Smoking status: Former Smoker Packs/day: 0.50 Years: 12.00 Pack years: 6.00 Types: Cigarettes Quit date: 12/25/2021 Years since quittin.3 Smokeless tobacco: Never Used Vaping Use Vaping Use: Never used Substance Use Topics Alcohol use: No Drug use: Not Currently Frequency: 3.0 times per week Types: Marijuana Comment: 1-2 twice a month REVIEW OF SYSTEMS: as above Reviewed relevant PMHx, PSHx, Social Hx, current medications and allergies. Review of Symptoms See HPI. All other systems are negative. EXAM: BP 138/64 (BP Site: Left Arm, BP Position: Sitting, BP Cuff Size: Large Adult) Pulse 72 Resp 16 Wt 79.4 kg (175 lb) BMI 34.18 kg/m General Appearance: Well appearing, alert, in no acute distress, well-hydrated, well nourished.. Skin: Skin color, texture, turgor normal, no suspicious rashes or lesions. Head: Normocephalic, no masses, lesions, tenderness or abnormalities. Back:no pain to palpation of vertebrae, good flexion and extension, good range of motion, no muscletenderness, reflexes are 2+ and symmetric, motor and sensory appear to be normal, negative SLR test, no evidence of scoliosis Lungs: Lungs clear to auscultation. No wheezing, rhonchi, rales.. Heart: RRR without murmur, gallop, or rubs. No ectopy. Abdomen: Abdomen soft, non-tender. Bowel sounds normal. No masses, organomegaly, Negative CVA tenderness, Positive findings: tenderness moderate RLQ, LLQ and suprapubic. Neurologic: Gait normal. Reflexes normal and symmetric. Sensation grossly intact.. Health Maintenance List DILATED RETINAL EXAM due on 11/05/2019 HEPATITIS B(2 of 3 - Hep B Twinrix risk 3-dose series) due on 05/02/2022 HEPATITIS A(2 of 3 - Hep A Twinrix risk 3-dose series) due on 05/02/2022 DIABETIC FOOT EXAM due on 05/21/2022 DTAP,TDAP,TD(1 - Tdap) due on 08/08/2022 MMR(1 of 2 - Risk 2-dose series) due on 04/04/2023 MENINGOCOCCAL B: Consider based on risk(1 of 4 - Increased Risk Bexsero 2-dose series) due on 04/04/2023 SHINGRIX VACCINE(1 of 2) due on 04/04/2023 COVID-19 VACCINE(1) due on 04/04/2023 PNEUMOCOCCAL(2 - PCV) due on 03/17/2025 BP CONTROLLED (<130/80) due on 08/08/2022 HBA1C due on 09/06/2022 MAMMOGRAM due on 01/24/2023 URINE ALBUMIN:CREATININE RATIO due on 03/06/2023 LDL CHOLESTEROL due on 03/06/2023 ANNUAL PCP TEAM CHRONIC DISEASE VISIT due on 04/04/2023 COLORECTAL CANCER SCREENING due on 05/22/2025 INFLUENZA Completed HEPATITIS C SCREENING Completed PAP TESTING Discontinued HPV TESTING Discontinued HIV SCREENING Discontinued ASSESSMENT/PLAN: 1. Left lower quadrant abdominal pain - ICD9: 789.04, ICD10: R10.32 (primary diagnosis) Concerns for recurrent diverticulitis vs UTI vs appendicitis? Unnecessary to restart double antibiotic therapy for diverticulitis if not needed d/t low severity of pain in relation to prior episodes -- pt agreeable. Will get blood work done and CT scan of abd/pelvis first. UA dip showed trace leukocytes -- concern for start of UTI contributing to discomfort. Pt wanting to start ATB to see if any improvement prior to CT scan. Macrobid sent over. - [place] low residue diet - Follow up in 1 weeks or sooner if worsening of symptoms - CBC + DIFF - COMP METABOLIC PANEL - LIPASE BLD - UA DIP OB, URINE (POC) -- moderate hgb (baseline for pt) and trace leukocytes. - URINE CULTURE - URINALYSIS, WITH MICROSCOPIC - IV CONTRAST (RADIOLOGY PROCEDURE) - ENTERIC CONTRAST (RADIOLOGY PROCEDURE) - CT ABD/PEL W IVCON 2. RLQ abdominal pain - ICD9: 789.03, ICD10: R10.[address] scan will rule out appendicitis d/t unlikely r/t age. - CBC + DIFF - COMP METABOLIC PANEL - LIPASE BLD - UA DIP OB, URINE (POC) - URINE CULTURE - URINALYSIS, WITH MICROSCOPIC - IV CONTRAST (RADIOLOGY PROCEDURE) - ENTERIC CONTRAST (RADIOLOGY PROCEDURE) - CT ABD/PEL W IVCON 3. Pelvic pain - ICD9: [id number], ICD10: R10.2 Rule out UTI with urine culture and macrobid trial. - UA DIP OB, URINE (POC) - URINE CULTURE - URINALYSIS, WITH MICROSCOPIC - CT ABD/PEL W IVCON - UA DIP, URINE (POC) - NITROFURANTOIN MONOHYDRATE & MACROCRYSTAL 100 MG ORAL CAP 4. Vaginal itching - ICD9: 698.1, ICD10: N89.8 Likely yeast infection r/t recent numerous ATB regimens. If no improvement after 2 doses, please let me know. RTO for pelvic exam. - FLUCONAZOLE 150 MG TABLET RTO as needed if symptoms worsen or do not improve. Prescription instructions reviewed with patient as applicable. Potential red flag symptoms discussed with the patient. Reviewed appropriate action plan to take if red flag symptoms occur. Patient agreeable to treatment plan. Liz Bean APRN.CNP [address] [place] [address] documented in this encounterL[facility]06-27-2022 Miscellaneous Notes* Telephone Encounter - Thao Pineda APRN.CNP - 04/22/2022 11:26 AM EDT Orders for Twinrix immunization placed. Thao Pineda APRN.CNP * Telephone Encounter - Ema Hanna LPN - 04/22/2022 10:47 AM EDT Patient scheduled for nurse visit 05/06/22 to receive Twinrix vaccine. Please place order at this time. Ema Hanna LPN documented in this encounterLake[facility]06-22-2022 Miscellaneous Notes* Telephone Encounter - Justa Chavez LPN - 04/17/2022 8:59 AM EDT Patient phones requesting refills as follows: Pending Prescriptions Disp Refills ATENOLOL 25 MG TABLET 90 tablet 1 Sig: TAKE 1 TABLET BY MOUTH EVERY DAY EDWIN: Yes TANNA-04/04/22 Labs-04/04/22 NOV-10/04/22 Please review and advise. Justa Chavez LPN documented in this encounterL[facility]06-08-2022 History of Present illness Narrative* Kamron Daly RT(R) - 04/03/2022 7:30 AM EDT RADIOLOGY SERVICE PROGRESS NOTE SERVICE DATE: 04/03/2022 SERVICE TIME: 7:36 AM PATIENT IDENTITY VERIFICATION COMPLETED USING TWO (2) STANDARD IDENTIFIERS: Name and Date of confirmed by patient verbally FALL SCREENING: Has the patient had 2 falls in the last year or 1 fall with injury or currently using an Ambulatory Assistive Device (Walker, Cane, Wheelchair, Crutches, etc.)? No PATIENT GENDER DATA: .female : No ALLERGIES: Reviewed and unchanged MEDICATIONS REVIEWED: No PATIENT RELEVANT IMPLANT DATA REVIEWED: Not Applicable CREATININE: Creatinine Date Value Ref Range Status 03/06/2022 0.72 0.58 - 0.96 mg/dL Final 02/26/2022 0.70 0.58 - 0.96 mg/dL Final 05/21/2021 0.64 0.58 - 0.96 mg/dL Final Estimated Glomerular Filtration Rate Date Value Ref Range Status 03/06/2022 95 >=60 mL/min/1.73m Final Comment: Estimated Glomerular Filtration Rate (eGFR) is calculated using the 2020 CKD-EPI creatinine equation. This equation utilizes serum creatinine, sex, and age as parameters. The creatinine assay has traceable calibration to isotope dilution- mass spectrometry. Refer to KDIGO guidelines for clinical interpretation. In patients with unstable renal function, e.g. those with acute kidney injury, the eGFRmay not accurately reflect actual GFR. eGFR- Date Value Ref Range Status 05/21/2021 >60 Final P.O.C.T. RESULTS: N/A April 03, [address] PERFORMED: No IV SITE: NM only - not applicable, oral or physician administered agents given to patient POST EXAM PIV STATUS: Not applicable PROCEDURE TYPE: NM GET: 1.05 mCi Tc99m SULFUR COLLOID was administered orally via 4 ounces of Egg Beaters,1 piece of toast with 8 ounces of water orally ADMINISTRATION TIME: 730 PATIENT DISCHARGED TO: Ambulatory patient, left [place] department area. A Diagnostic radioactive procedure has taken place, with no further precautions necessary other than routine body substance precautions. More information regarding radiation safety can be found usingthis link: [email or web address] SIGNATURE: RT Ignacio(Cristobal) PATIENT NAME: Isaac Rahman DATE: April 03, 2022 TIME: 7:36 AM PAGER/CONTACT #: documented in this encounterLakehealth [facility]05-31-2022 Miscellaneous Notes* Addendum Note - Jovana Valladares PA-C - 03/26/2022 8:58 AM EDT Addended by: JOVANA VALLADARES on: 03/26/2022 08:58 AM Modules accepted: Orders documented in this encounterLakehealth [facility]05-16-2022 Instructions* Patient Instructions* Jovana Valladares PA-C - 03/11/2022 10:12 AM EDT Images from the original note were not included. Bowel Preparation Instructions for: Miralax-Gatorade Preparations IF YOU DO NOT FOLLOW THESE DIRECTIONS, YOUR COLONOSCOPY WILL BE CANCELLED. [place] Instructions: Your bowel must be empty so that your doctor can clearly view your colon. Follow all of the instructions in this handout EXACTLY as they are written. Do NOT eat any solid food the ENTIRE day before your colonoscopy. Buy your bowel preparation at least 5 days before your colonoscopy. Four (4) Dulcolax laxative tablets containing 5mg of bisacodyl each (NOT Dulcolax stool softener) One (1) 8.3oz. bottle Miralax (238 grams) or generic equivalent 2 x 32oz. Bottles of Gatorade (NOT RED) Diabetic Patients: Use G2 (Gatorade 2) TRANSPORTATION on the Day of Your Exam A responsible adult MUST be present with you at Check In prior to your colonoscopy and REMAIN in the endoscopy area until you are discharged. You are NOT ALLOWED to drive, take a taxi or bus, or leave the Endoscopy Center ALONE. If you do not have a responsible laundry route driver (family member or friend) withyou to take you home, your exam cannot be done with sedation and will be cancelled. Please bring a list of all of your current medications, including any [id number] medications with you. Medications If you take insulin, diabetic medications or blood thinners such as Coumadin (warfarin), Plavix (clopidogrel), Ticlid (ticlopidine hydrochloride), Agrylin (anagrelide), Xarelto (Rivaroxaban), Pradaxa(Dabigatran), Eliquis (Apixaban), and Effient (Prasugrel). You MUST call the doctors who orders those medicines for instructions on altering the dosage before your colonoscopy. All other medications should be taken the day of the exam with a sip of water including ASPIRIN. Five (5) Days Before Your Colonoscopy Do NOT take medicines that stop diarrhea - such as Imodium, Kaopectate, or Pepto Bismol. Do NOT take fiber supplements - such as Metamucil, Citrucel, or Perdiem. Do NOT take products that contain iron - such as multi-vitamins (the label lists what is in the products). Three (3) Days Before Your Colonoscopy Do NOT eat high-fiber foods - such as popcorn, beans, seeds (flax, sunflower, quinoa), multigrain bread, nuts, salad/vegetables, or fresh and dried fruit. 2 Bowel Preparation Instructions for: Miralax-Gatorade Preparations One (1) Day Before Your Colonoscopy Only drink clear liquids the ENTIRE DAY before your colonoscopy. Do NOT eat any solid foods. Drink at least 8 ounces of clear liquids every hour after waking up. The clear liquids you can drink include: Clear Liquid (NO RED LIQUIDS) DO NOT DRINK Gatorade, Pedialyte or Powerade Clear broth or bouillon Coffee or tea (no milk or non-dairy creamer) Carbonated and non-carbonated soft drinks Sunny-Aid or other fruit flavored drinks Strained fruit juices (no pulp) Jell-O, popsicles, hard candy Water Alcohol Milk or non-dairy creamers Noodles or vegetables in soup Juice with pulp Liquid you cannot see through Mix 1/2 of Miralax bottle (119 grams) in each 32 ounces of Gatorade bottle until dissolved. Keep cool in the refrigerator. DO NOT ADD ICE. The bowel preparation solution will be consumed in two parts. Part 1 5:00 PM - Evening before your colonoscopy Take 4 Dulcolax tablets. 6 PM - Evening before your colonoscopy Drink 32 oz. of the mixed solution. Drink an 8 oz. glass of bowel preparation every 15 minutes for a total of 4 glasses. Fifteen (15) minutes later, drink an 8 oz. glass of of clear liquids every 15 minutes for a total of 2 glasses. You may continue to drink clear liquids till midnight. Part 2 On the day of your colonoscopy you may drink clear liquids up to (three) 3 hours prior to procedure. 4 1/2 hours before your colonoscopy Take another 32 oz. bottle of mixed solution. Drink an 8 oz. glass of bowel prep every 15 minutes for a total of 4 glasses. Fifteen (15) minutes later, drink an 8 oz. glass of clear liquids every 15 minutes for a total of 2glasses. You may continue to drink clear liquids up to (three) 3 hours before your exam. 3 09/2019 documented in this encounterL[facility]-16-[facility]22 History of Present illness Narrative* Jovana Valladares PA-C - 03/11/2022 9:51 AM EDT CHIEF COMPLAINT: Patient presents with: Crohns: Diverticulitis, GI moved to [place], needs new GI HPI: Isaac Rahman is a 61 year old female who presents for Crohns (Diverticulitis, GI moved to [place],needs new GI ). Previously seen by Dominga WALKER due to h/o Crohn's, gastritis. Crohn's was dx around 2016, managed with Pentasa TID. Recent CT abd demonstrated findings of sigmoid diverticulitis, was provided 10 day course of Cipro/Flagyl in ED. Last EGD/Colon 04/2020 demonstrated mild inflammation in stomach, negative TI biopsies. Due to persistent symptoms PCP provided additional course of Cipro/Flagyl. Includes that after second course she has noticed improvement. Some residual lower abdominalpain but not as severe as it was initially. This was her first episodes of diverticulitis. Was const ipated prior to diverticulitis. BMs are currently daily, soft consistency, no blood. Takes Pepcid PRN for indigestion with good relief in GERD sx. Admits to some chronic persistent nausea, early satiety, weight gain of 20 lbs unintentionally in the past year. Some spotty vision changes, floaters r ecently. CT abd 02/26/2022 IMPRESSION: 1. Acute uncomplicated sigmoid diverticulitis. 2. Terminal ileitis related to known Crohn's disease, improved from prior. Record Review: [facility] / Outside records reviewed. PAST MEDICAL HISTORY Diagnosis Date Cataracts, bilateral Cervical spondylosis with radiculopathy Crohn's disease involving terminal ileum ([facility]) 01/21/2017 Dr. De Anda DEPRESSIVE DISORDER NEC 05/30/2006 Diverticulitis DM (diabetes mellitus) ([facility]) 11/23/2012 single episode of A1C>6.5, possibly related to steroid injections Esophageal reflux Essential hypertension, benign Fibromyalgia 07/25/[address] Garcia for pain management. Hyperlipidemia 02/05/2013 Hypothyroidism Internal hemorrhoids without mention of complication Lumbago 05/30/2006 L4,L5 compression fracture PTSD (post-traumatic stress disorder) 2 children from [facility] Sleep apnea not on cpap Tobacco use PAST SURGICAL HISTORY Procedure Laterality Date APPENDECTOMY 1988 noted appendix visulaized on CT Scan in 2017 DELIVERY ONLY x 4 CHOLECYSTECTOMY 1984 Cholecystectomy COLONOSCOPY 05/22/2020 COLONOSCOPY FLX DX W/COLLJ SPEC WHEN PFRMD 11/14/03 Colonoscopy COLONOSCOPY FLX DX W/COLLJ SPEC WHEN PFRMD 11/05/04 Colonoscopy COLONOSCOPY FLX DX W/COLLJ SPEC WHEN PFRMD 08/15/16 Colonoscopy (MAC) CYSTOURETHROSCOPY 12/2006 ESOPHAGOGASTRODUODENOSCOPY TRANSORAL DIAGNOSTIC 11/14/03 EGD ESOPHAGOGASTRODUODENOSCOPY TRANSORAL DIAGNOSTIC 08/15/16 EGD (MAC) ESOPHAGOGASTRODUODENOSCOPY TRANSORAL DIAGNOSTIC 05/22/2020 EGD LAMINECTOMY W/O FFD 2 VERT SEG LUMBAR 2007 Laminectomy, lumbar PAST SURGICAL HISTORY OF cyst removed from Left ovary PAST SURGICAL HISTORY OF 2001 Left ovary removed PAST SURGICAL HISTORY OF 1988 right wrist reconstruction, work related injury PAST SURGICAL HISTORY OF 2004 hysterectomy, adhesion removal. STILL HAS CERVIX Allergies: ALLERGIES Allergen Reactions Nickel Rash Can't wear cheap jewelry Penicillins Intolerance Seasonal Allergies Unknown Tetracycline GI Upset, Other: See Comments Sensitive to light Medications: ciprofloxacin HCl (CIPRO) 500 mg tablet Take 1 tablet by mouth twice daily for 10 days. metroNIDAZOLE (FLAGYL) 500 mg tablet Take 1 tablet by mouth three times daily for 10 days. THEREMS tablet Take 1 tablet by mouth once daily. levothyroxine (SYNTHROID) 75 mcg tablet Take 1 tablet by mouth once daily. Take on empty stomach. For Thyroid. lisinopril (ZESTRIL, PRINIVIL) 10 mg tablet Take 1 tablet by mouth once daily. loratadine (CLARITIN) 10 mg tablet Take 1 tablet by mouth once daily. fluticasone (FLONASE) 50 mcg/actuation nasal spray Use 2 Sprays in each nostril once daily. Rinse mouth after use. collagen/biotin/ascorbic acid (COLLAGEN 1500 PLUS C ORAL) Take by mouth. famotidine (PEPCID) 20 mg tablet TAKE ONE TABLET TWICE DAILY. MAY TAKE AN ADDITIONAL TABLET NEEDED. calcium carbonate 600 mg-cholecalciferol 200 units 600 mg(1,500mg) -200 unit tab TAKE 1 TABLET BY MOUTH TWICE A DAY Incontinence Pad, Liner, Disp pads 1 Units twice daily. potassium chloride ER (KLOR-CON M20) 20 mEq tablet TAKE 2 TABLETS BY MOUTH IN THE MORNING AND 2 TABLETS IN THE EVENING atenolol (TENORMIN) 25 mg tablet Take 1 tablet by mouth once daily. atorvastatin (LIPITOR) 40 mg tablet Take 1 tablet by mouth daily at bedtime. For cholesterol. spironolactone (ALDACTONE) 25 mg tablet Take 1 tablet by mouth once daily. aspirin, enteric coated (ASPIRIN, ENTERIC COATED) 81 mg EC tablet Take 1 tablet by mouth once daily. Mesalamine (PENTASA) 500 mg CR capsule Take 2 capsules by mouth three times daily. cyclobenzaprine (FLEXERIL) 10 mg tablet Take 1 tablet by mouth every 8 hours as needed for Muscle Spasm (or pain). COMPOUNDED PRESCRIPTION BIPAP 09/07, mask, supplies, and tubing COMPOUNDED PRESCRIPTION CPAP at 09/07 gabapentin (NEURONTIN) 600 mg tablet Take 1 tablet by mouth once daily for 30 days. FLORAJEN3 460 mg (7.5-6- 1.5 bill. cell) cap TAKE 1 CAPSULE BY MOUTH EVERY DAY BIOTIN ORAL Take 5,000 mg by mouth. FAMILY HISTORY Problem Relation Age of Onset Diabetes Mother Stroke Mother Cancer Father prostate Heart Father Diabetes Father Thyroid Father Hypertension Brother Stroke Brother other (car accident) Brother Cancer Maternal Grandmother Thyroid Paternal Grandmother Stroke Paternal Grandmother age 50s other (car accident) Daughter Coronary Artery Disease Son MVA Diabetes Son Type II Stroke Son Breast Cancer Paternal Aunt other (gallbladder disease) Paternal Aunt Fathers side of the family Colon Cancer Paternal cousin Employer And Job Title: None on file Years Of Education Completed: Not specified Marital Status: with 4 children Social History Tobacco Use Smoking status: Former Smoker Packs/day: 0.50 Years: 12.00 Pack years: 6.00 Types: Cigarettes Quit date: 12/25/2021 Years since quittin.2 Smokeless tobacco: Never Used Tobacco comment: smokes a cigarette occasionally Vaping Use Vaping Use: Never used Substance Use Topics Alcohol use: No Drug use: Not Currently Frequency: 3.0 times per week Types: Marijuana Comment: 1-2 twice a month Review of Systems: Review of Systems Constitutional: Positive for activity change, appetite change, chills, fatigue and unexpected weight change. Gastrointestinal: Positive for abdominal distention, abdominal pain, nausea and rectal pain. Change in Bowel Habits All other systems reviewed and are negative. Are you taking any blood thinners? No Physical Examination: BP 162/84 Pulse 59 Ht 5' 0 (1.52m) Wt 177 lb (80.3kg) BMI 34.57 kg/(m^2). Physical Exam Constitutional: General: She is not in acute distress. Appearance: Normal appearance. She is normal weight. She is not ill-appearing, toxic-appearing or diaphoretic. HENT: Head: Normocephalic and atraumatic. Nose: Nose normal. Eyes: General: No scleral icterus. Right eye: No discharge. Left eye: No discharge. Extraocular Movements: Extraocular movements intact. Conjunctiva/sclera: Conjunctivae normal. Pupils: Pupils are equal, round, and reactive to light. Cardiovascular: Rate and Rhythm: Normal rate and regular rhythm. Pulses: Normal pulses. Heart sounds: Normal heart sounds. No murmur heard. No friction rub. No gallop. Pulmonary: Effort: No respiratory distress. Breath sounds: Normal breath sounds. No stridor. No wheezing, rhonchi or rales. Chest: Chest wall: No tenderness. Abdominal: General: Abdomen is flat. Bowel sounds are normal. There is no distension. Palpations: Abdomen is soft. There is no mass. Tenderness: There is no abdominal tenderness. There is no right CVA tenderness, left CVA tenderness, guarding or rebound. Hernia: No hernia is present. Musculoskeletal: General: Normal range of motion. Cervical back: Normal range of motion and neck supple. Skin: General: Skin is warm and dry. Neurological: General: No focal deficit present. Mental Status: She is alert and oriented to person, place, and time. Psychiatric: Mood and Affect: Mood normal. Behavior: Behavior normal. Assessment/Plan (K50.00) Crohn's disease involving terminal ileum (HCC) (primary encounter diagnosis) (K57.32) Sigmoid diverticulitis (K29.50) Chronic antral gastritis (R68.81) Early satiety (R11.0) Nausea (Z12.83) Skin exam, screening for cancer 1. Crohn's disease involving terminal ileum (HCC) - polyethylene glycol 3350 (MIRALAX, GLYCOLAX) 17 gram/dose powder; Use as directed for Miralax / Gatorade Bowel Prep Kit Dispense: 238 g; Refill: 0 - Gatorade Sports Drink; Use as directed for Miralax / Gatorade Bowel Prep Kit - Bisacodyl (DULCOLAX) 5 mg tab; Use as directed for Miralax / Gatorade Bowel Prep Kit Dispense: 4 tablet; Refill: 0 - COLONOSCOPY DIAGNOSTIC; Future - CELIAC SCREEN WITH REFLEX; Future - VITAMIN B12 BLOOD; Future - VITAMIN D 25 HYDROXY; Future - CONSULT TO DERMATOLOGY; Future - Continue Pentasa daily - Check Celiac serology, vitamin D/B12 levels - Colon any time after 05/03/2022 - May use Miralax PRN for any recurring constipation, having formed BMs daily currently - Low fiber diet for the next 4 weeks - Going to scheduled eye exam, refer to Derm for yearly skin exam 2. Sigmoid diverticulitis - polyethylene glycol 3350 (MIRALAX, GLYCOLAX) 17 gram/dose powder; Use as directed for Miralax / Gatorade Bowel Prep Kit Dispense: 238 g; Refill: 0 - Gatorade Sports Drink; Use as directed for Miralax / Gatorade Bowel Prep Kit - Bisacodyl (DULCOLAX) 5 mg tab; Use as directed for Miralax / Gatorade Bowel Prep Kit Dispense: 4 tablet; Refill: 0 - COLONOSCOPY DIAGNOSTIC; Future 3. Chronic antral gastritis - Doing well with Pepcid daily - Avoid NSAIDs 4. Early satiety - NM GASTRIC EMPTYING SOLID; Future 5. Nausea - NM GASTRIC EMPTYING SOLID; Future 6. Skin exam, screening for cancer - CONSULT TO DERMATOLOGY; Future Recommended to please call office/go to ER if fever, chills, chest pain, SOB, diarrhea, nausea, emesis, worsening abdominal pain, dehydration occurs I spent 26 minutes in the visit, with more than 50% of the total [id number] time of the visit in counseling / coordination of care. I have confirmed and edited as necessary, the PFSH and ROS obtained by others. Jovana Valladares PA-C March 11, 2022 10:24 AM documented in this encounterL[facility]05-16-2022 Miscellaneous Notes* Telephone Encounter - Thao Pineda APRN.CNP - 03/11/2022 7:57 AM EDT Reviewed. Thao Pineda APRN.CNP * Telephone Encounter - Sis Solomon LPN - 03/08/2022 4:04 PM EDT Patient returned call and went over results, notes from Thao Pineda INCOME TAX ADJUSTER with understanding. I [facility]oned [facility] and spoke to Pat was able to add the TSH to labs that were done 03/06/2022. * Telephone Encounter - Gisela Gutierrez Ma - 03/08/2022 3:43 PM EDT Tried calling patient but no answer and vm not set up Gisela Gutierrez Ma * Telephone Encounter - Thao Pineda APRN.CNP - 03/08/2022 3:24 PM EDT Please see if lab can run her TSH from the blood work just drawn as for some reason they did not doit with all the other blood work, if not she will need to come back and complete. Please call patient and let her know her blood work shows improved white blood cell count, however still mild elevation. I sent her a my chart message letting her know I sent over prescriptions to pharmacy to retreat her for her diverticulitis. A1c slightly higher than last check- still in good range- Recommend she eat lower carbohydrate diet and aim for at least 150 minutes of exercise per week.Cholesterol and triglycerides greatly improved, continue current medication. Thao Pineda APRN.CNP documented in this encounterL[facility]05-11-2022 History of Present illness Narrative* Maria Del Carmen Leong MD - 03/06/2022 10:12 AM EDT Chief Complaint Patient presents with: ED Follow-up: Diverticulitis HPI Isaac Rahman is a 61 year old female who presents here today for ED follow up. Patient evaluated at [place] ED on 02/25 for complaint of nausea and lower abdominal pain which started the morning prior. Found to have TTP in LLQ on exam and labs showed leukocytosis to 18,000. CT scan showed acute diverticulitis in left sigmoid region. Started on Cipro, Flagyl x 7 days and advised tofollow up as outpatient. Patient states that she misread the Flagyl and was taking BID instead of every 8 hours. States thather nausea and pain have improved, but have not completely resolved. Started back to solid food 2 days ago. Denies fever, chills, vomiting, diarrhea, hematochezia, melena. Needs referral to new GI to follow up on Crohns since Dr. De Anda is no longer working in [place]. Past medical history, appointments, medications, allergies reviewed. Previous Medical History PAST MEDICAL HISTORY Diagnosis Date Cataracts, bilateral Cervical spondylosis with radiculopathy Crohn's disease involving terminal ileum (HCC) 01/21/2017 Dr. De Anda DEPRESSIVE DISORDER NEC 05/30/2006 DM (diabetes mellitus) ([facility]) 11/23/2012 single episode of A1C>6.5, possibly related to steroid injections Esophageal reflux Essential hypertension, benign Fibromyalgia 07/25/[address] Garcia for pain management. Hyperlipidemia 02/05/2013 Hypothyroidism Internal hemorrhoids without mention of complication Lumbago 05/30/2006 L4,L5 compression fracture PTSD (post-traumatic stress disorder) 2 [facility] from [facility] Sleep apnea not on cpap Tobacco use Previous Surgical History PAST SURGICAL HISTORY Procedure Laterality Date APPENDECTOMY 1988 noted appendix visulaized on CT Scan in 2017 DELIVERY ONLY x 4 CHOLECYSTECTOMY 1983 Cholecystectomy COLONOSCOPY FLX DX W/COLLJ SPEC WHEN PFRMD 11/14/03 Colonoscopy COLONOSCOPY FLX DX W/COLLJ SPEC WHEN PFRMD 11/05/04 Colonoscopy COLONOSCOPY FLX DX W/COLLJ SPEC WHEN PFRMD 08/15/16 Colonoscopy (MAC) CYSTOURETHROSCOPY 12/2006 ESOPHAGOGASTRODUODENOSCOPY TRANSORAL DIAGNOSTIC 11/14/03 EGD ESOPHAGOGASTRODUODENOSCOPY TRANSORAL DIAGNOSTIC 08/15/16 EGD (MAC) ESOPHAGOGASTRODUODENOSCOPY TRANSORAL DIAGNOSTIC 05/22/2020 EGD LAMINECTOMY W/O FFD 10/28 VERT SEG LUMBAR 2007 Laminectomy, lumbar PAST SURGICAL HISTORY OF cyst removed from Left ovary PAST SURGICAL HISTORY OF 2001 Left ovary removed PAST SURGICAL HISTORY OF 1988 right wrist reconstruction, work related injury PAST SURGICAL HISTORY OF 2004 hysterectomy, adhesion removal. STILL HAS CERVIX Family History FAMILY HISTORY Problem Relation Age of Onset Diabetes Mother Stroke Mother Cancer Father prostate Heart Father Diabetes Father Thyroid Father Hypertension Brother Stroke Brother other (car accident) Brother Cancer Maternal Grandmother Thyroid Paternal Grandmother Stroke Paternal Grandmother age 50s other (car accident) Daughter Coronary Artery Disease Son MVA Diabetes Son Type II Stroke Son Breast Cancer Paternal Aunt other (gallbladder disease) Paternal Aunt Fathers side of the family Patient Allergies ALLERGIES Allergen Reactions Nickel Rash Can't wear cheap jewelry Penicillins Intolerance Seasonal Allergies Unknown Simvastatin Myalgia Tetracycline GI Upset, Other: See Comments Sensitive to light Current Medications Current Outpatient Medications on File Prior to Visit Medication Sig loratadine (CLARITIN) 10 mg tablet Take 1 tablet by mouth once daily. fluticasone (FLONASE) 50 mcg/actuation nasal spray Use 2 Sprays in each nostril once daily. Rinse mouth after use. collagen/biotin/ascorbic acid (COLLAGEN 1500 PLUS C ORAL) Take by mouth. famotidine (PEPCID) 20 mg tablet TAKE ONE TABLET TWICE DAILY. MAY TAKE AN ADDITIONAL TABLET NEEDED. calcium carbonate 600 mg-cholecalciferol 200 units 600 mg(1,500mg) -200 unit tab TAKE 1 TABLET BY MOUTH TWICE A DAY levothyroxine (SYNTHROID) 75 mcg tablet Take 1 tablet by mouth once daily. Take on empty stomach. For Thyroid. lisinopril (ZESTRIL, PRINIVIL) 10 mg tablet Take 1 tablet by mouth once daily. potassium chloride ER (KLOR-CON M20) 20 mEq tablet TAKE 2 TABLETS BY MOUTH IN THE MORNING AND 2 TABLETS IN THE EVENING THEREMS tablet Take 1 tablet by mouth once daily. atenolol (TENORMIN) 25 mg tablet Take 1 tablet by mouth once daily. atorvastatin (LIPITOR) 40 mg tablet Take 1 tablet by mouth daily at bedtime. For cholesterol. cyclobenzaprine (FLEXERIL) 10 mg tablet Take 1 tablet by mouth every 8 hours as needed for muscle spasm (or pain). spironolactone (ALDACTONE) 25 mg tablet Take 1 tablet by mouth once daily. aspirin, enteric coated (ASPIRIN, ENTERIC COATED) 81 mg EC tablet Take 1 tablet by mouth once daily. gabapentin (NEURONTIN) 600 mg tablet Take 1 tablet by mouth once daily for 30 days. Mesalamine (PENTASA) 500 mg CR capsule Take 2 capsules by mouth three times daily. FLORAJEN3 460 mg (7.5-6- 1.5 bill. cell) cap TAKE 1 CAPSULE BY MOUTH EVERY DAY COMPOUNDED PRESCRIPTION BIPAP 09/07, mask, supplies, and tubing COMPOUNDED PRESCRIPTION CPAP at 09/07 BIOTIN ORAL Take 5,000 mg by mouth. Incontinence Pad, Liner, Disp pads 1 Units twice daily. atorvastatin (LIPITOR) 20 mg tablet Take 1 tablet by mouth daily at bedtime. Take one tablet daily in addition to 40 mg tablet atorvastatin (LIPITOR) 40 mg tablet Take 1 tablet by mouth daily at bedtime. Take on tablet daily in addition to 20 mg tablet cyclobenzaprine (FLEXERIL) 10 mg tablet Take 1 tablet by mouth every 8 hours as needed for Muscle Spasm (or pain). No current facility-administered medications on file prior to visit. Social History Social History Tobacco Use Smoking status: Former Smoker Packs/day: 0.50 Years: 12.00 Pack years: 6.00 Types: Cigarettes Quit date: 12/25/2021 Years since quittin.1 Smokeless tobacco: Never Used Tobacco comment: smokes a cigarette occasionally Vaping Use Vaping Use: Never used Substance Use Topics Alcohol use: No Drug use: Not Currently Frequency: 3.0 times per week Types: Marijuana Comment: 1-2 twice a month Review of Symptoms REVIEW OF SYSTEMS See HPI EXAM: BP 142/90 Pulse 78 Resp 14 Wt 82.1 kg (181 lb) BMI 35.35 kg/m General Appearance: Well appearing, alert, in no acute distress, well-hydrated, well nourished.. Skin: Skin color, texture, turgor normal, no suspicious rashes or lesions. Lungs: Lungs clear to auscultation. No wheezing, rhonchi, rales.. Heart: RRR without murmur, gallop, or rubs. No ectopy. Abdomen: Abdomen soft. Bowel sounds normal. No masses, organomegaly, Positive findings: tenderness mild LLQ without guarding or rebound. Health Maintenance List COVID-19 VACCINE(1) Never done MENINGOCOCCAL B: Consider based on risk(1 of 4 - Increased Risk Bexsero 2-dose series) Never done SHINGRIX VACCINE(1 of 2) Never done DILATED RETINAL EXAM due on 11/05/2019 URINE ALBUMIN:CREATININE RATIO due on 08/25/2021 HBA1C due on 11/21/2021 DTAP,TDAP,TD(1 - Tdap) due on 08/08/2022 LDL CHOLESTEROL due on 05/21/2022 DIABETIC FOOT EXAM due on 05/21/2022 ANNUAL PCP TEAM CHRONIC DISEASE VISIT due on 08/08/2022 BP CONTROLLED (<130/80) due on 08/08/2022 MAMMOGRAM due on 01/24/2023 COLORECTAL CANCER SCREENING due on 05/22/2025 ONE PNEUMOVAX PRIOR TO AGE 65 Completed INFLUENZA Completed HEPATITIS C SCREENING Completed MENINGOCOCCAL CONJUGATE Aged Out PAP TESTING Discontinued HPV TESTING Discontinued HIV SCREENING Discontinued Data reviewed Component Latest Ref Rng & Units 02/26/2022 WBC 3.70 - 11.00 k/uL 18.28 (H) RBC 3.90 - 5.20 m/uL 4.37 Hemoglobin 11.5 - 15.5 g/dL 13.8 Hematocrit 36.0 - 46.0 % 41.3 MCV 80.0 - 100.0 fL 94.5 MCH 26.0 - 34.0 pg 31.6 MCHC 30.5 - 36.0 g/dL 33.4 RDW-CV 11.5 - 15.0 % 11.8 Platelet Count 150 - 400 k/uL 267 MPV 9.0 - 12.7 fL 9.6 Neut% % 79.1 Abs Neut (ANC) 1.45 - 7.50 k/uL 14.47 (H) Lymph% % 13.6 Abs Lymph 1.00 - 4.00 k/uL 2.49 Ray% % 5.9 Abs Ray <0.87 k/uL 1.07 (H) Eosin% % 1.3 Abs Eosin <0.46 k/uL 0.23 Baso% % 0.1 Abs Baso <0.11 k/uL <0.03 DTYPE Auto Glucose 74 - 99 mg/dL 130 (H) BUN 7 - 21 mg/dL 14 Creatinine 0.58 - 0.96 mg/dL 0.70 Sodium 136 - 144 mmol/L 140 Potassium 3.7 - 5.1 mmol/L 4.0 Chloride 97 - 105 mmol/L 104 CO2 22 - 30 mmol/L 26 Anion Gap 9 - 18 mmol/L 10 Calcium 8.5 - 10.2 mg/dL 9.3 eGFR >=60 mL/min/1.73m 98 ASSESSMENT/PLAN: 1. Diverticulitis - ICD9: 562.11, ICD10: K57.92 (primary diagnosis) Symtpoms improving. Complete abx and call if pain and nausea has not resolved. Would repeat rx for total of 10 days if not resolved. Recheck labs as ordered. Discussed soft/bland diet until the pain and nausea clear up. Red flags for re- assessment reviewed with patient in detail. F/u in 1 month forrecheck on DM. - CBC + DIFF - COMP METABOLIC PANEL 2. Crohn's disease involving terminal ileum (HCC) - ICD9: 555.0, ICD10: K50.00 Referral to establish with new GI since Dr. De Anda moved away. - CONSULT TO GASTROENTEROLOGY - THEREMS TABLET 3. Acquired hypothyroidism - ICD9: 244.9, ICD10: E03.9 Requesting refill. Recheck TSH. - LEVOTHYROXINE 75 MCG TABLET - TSH BLD 4. Essential hypertension, benign - ICD9: 401.1, ICD10: I10 - suboptimal control, may be 2/2 infection/mild pain. - Continue current medication(s) - Encouraged dietary sodium restriction/DASH diet - Recommended regular aerobic exercise. - Follow up in 1 month for BP recheck. - Reviewed risks of HTN and principles of treatment - Goal of BP <140/90 - LISINOPRIL 10 MG TABLET 5. Type 2 diabetes mellitus without retinopathy (HCC) - ICD9: 250.00, ICD10: E11.9 Recheck labs and discuss further in 1 month. - LIPID PANEL, NONFASTING - HGB A1C - ALBUMIN/CREAT RATIO RND UR Maria Del Carmen Leong MD documented in this encounterL[facility]05-05-2022 Miscellaneous Notes* Telephone Encounter - Soledad Brito Ma - 02/28/2022 9:43 AM EDT Letter mailed to pt home of results. Soledad Brito MA * Telephone Encounter - Soledad Brito Ma - 02/28/2022 9:43 AM EDT ----- Message from Maria Del Carmen Leong MD sent at 02/27/2022 3:33 PM EDT ----- Ultrasound of left breast negative for malignancy. Return to annual mammogram schedule. documented in this encounterLake[facility]05-04-2022 Miscellaneous Notes* Telephone Encounter - Trev Malik RN - 02/27/2022 4:38 PM EDT Patient returned call and given providers message below with verbalized understanding. * Telephone Encounter - Olya Robb RN - 02/27/2022 3:25 PM EDT Pt did not answer and does not have a voice mail box set up. Olya Robb RN * Telephone Encounter - Thao Pineda APRN.CNP - 02/27/2022 3:15 PM EDT Please call patient and let her know her breast images shows a focal asymmetry in the left breast which is consistent with a cyst and is benign. There is no mammographic evidence of malignancy. Thanks, Thao Pineda APRN.CNP documented in this encounterLakehealth [facility]05-04-2022 History of Present illness Narrative* Beornica Cameron RDMS - 02/27/2022 3:00 PM EDT Radiology Service Progress Note PATIENT NAME: Isaac Rahman DATE OF SERVICE: February 27, 2022 TIME: 3:55 PM PATIENT IDENTITY VERIFICATION COMPLETED USING TWO (2) IDENTIFIERS: Name and Date of confirmedby patient verbally. FALL SCREENING: Has the patient had 2 falls in the last year or 1 fall with injury or currently using an Ambulatory Assistive Device (Walker, Cane, Wheelchair, Crutches, etc.)? No PATIENT GENDER DATA: Female. status: : No status: N/A PATIENT RELEVANT IMPLANT DATA REVIEWED: Not Applicable RADIOLOGY DEPARTMENT: Ultrasound PERIPHERAL IV DATA: Not applicable SIGNED BY: Beronica Cameron RDMS RVT February 27, 2022 3:55 PM documented in this encounterLake[facility]03-29-2022 Miscellaneous Notes* Letter - Mammography Coordinator - 01/22/2022 6:45 PM EDT January 22, 2022 PID: [id number] Isaac Rahman [address] [place] [address] Dear Ms. Rahman, Your recent breast imaging exam on 01/22/2022 showed a possible finding that requires additional imaging studies for a complete evaluation. Most such findings are probably benign (not cancer). If you have a healthcare provider who ordered/prescribed your screening mammogram: Please call [phone] or EXT: [id number] to schedule an appointment for your additional imaging (if youhave not already done so). If you DO NOT have a healthcare provider (ie you did not have an order/prescription for your screening mammogram): Please call to schedule an appointment for your additional imaging (if you have not already done so). You must have an order/prescription from your physician when calling to schedule your appointment. If your order/prescription is not electronic, you must bring the hard copy with you on the day of your exam to avoid delays. Your imaging studies and reports are kept on file at [facility] as part of your permanent medical record, and are available for your continuing care. Thank you for allowing us to help in meeting your health care needs. Sincerely, Dr. Palm Interpreting Radiologist [facility] (Additional imaging) documented in this encounterL[facility]03[facility] History of Present illness Narrative* RT Yfn(Cristobal) - 01/22/2022 11:10 AM EDT Radiology Service Progress Note PATIENT NAME: Isaac Rahman DATE OF SERVICE: January 22, 2022 TIME: 10:28 AM PATIENT IDENTITY VERIFICATION COMPLETED USING TWO (2) IDENTIFIERS: Name and Date of confirmedby patient verbally. FALL SCREENING: Has the patient had 2 falls in the last year or 1 fall with injury or currently using an Ambulatory Assistive Device (Walker, Cane, Wheelchair, Crutches, etc.)? No PATIENT GENDER DATA: Female. status: : No status: NO. PATIENT RELEVANT IMPLANT DATA REVIEWED: Not Applicable RADIOLOGY DEPARTMENT: Mammography PERIPHERAL IV DATA: Not applicable SIGNED BY: RT Yfn(Cristobal) January 22, 2022 10:28 AM documented in this encounterLake[facility]03-29-[facility] History of Present illness Narrative* Mari Turner APRN.REDIPPER - 01/22/2022 10:26 AM EDT Isaac is a 61 year old who presents for an annual gynecologic exam without complaints. Continues to have blood in urine as she has had intermittently for many years - plans to follow with urology. 32 yo son recently had a stroke and she is helping him with medical appointments at this time. Postmenopausal: Yes supracervical hysterectomy 2004, LSO 2001 and thinks RSO with hysterectomy HRT use: No. 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 De Anda DEPRESSIVE DISORDER NEC 05/30/2006 DM (diabetes mellitus) ([facility]) 11/23/2012 single episode of A1C>6.5, possibly related to steroid injections Esophageal reflux Essential hypertension, benign Fibromyalgia 07/25/[address] Garcia for pain management. Hyperlipidemia 02/05/2013 Hypothyroidism Internal hemorrhoids without mention of complication Lumbago 05/30/2006 L4,L5 compression fracture PTSD (post-traumatic stress disorder) 2 children from [facility] Sleep apnea not on cpap Tobacco use PAST SURGICAL HISTORY Procedure Laterality Date APPENDECTOMY 1988 noted appendix visulaized on CT Scan in 2017 DELIVERY ONLY x 4 CHOLECYSTECTOMY 1984 Cholecystectomy COLONOSCOPY FLX DX W/COLLJ SPEC WHEN PFRMD 11/14/03 Colonoscopy COLONOSCOPY FLX DX W/COLLJ SPEC WHEN PFRMD 11/05/04 Colonoscopy COLONOSCOPY FLX DX W/COLLJ SPEC WHEN PFRMD 08/15/16 Colonoscopy (MAC) CYSTOURETHROSCOPY 12/2006 ESOPHAGOGASTRODUODENOSCOPY TRANSORAL DIAGNOSTIC 11/14/03 EGD ESOPHAGOGASTRODUODENOSCOPY TRANSORAL DIAGNOSTIC 08/15/16 EGD (MAC) ESOPHAGOGASTRODUODENOSCOPY TRANSORAL DIAGNOSTIC 05/22/2020 EGD LAMINECTOMY W/O FFD 10/28 VERT SEG LUMBAR 2008 Laminectomy, lumbar PAST SURGICAL HISTORY OF cyst removed from Left ovary PAST SURGICAL HISTORY OF 2001 Left ovary removed PAST SURGICAL HISTORY OF 1988 right wrist reconstruction, work related injury PAST SURGICAL HISTORY OF 2004 hysterectomy, adhesion removal. STILL HAS CERVIX FAMILY HISTORY Problem Relation Age of Onset Diabetes Mother Stroke Mother Cancer Father prostate Heart Father Diabetes Father Thyroid Father Hypertension Brother Stroke Brother other (car accident) Brother other (car accident) Daughter Cancer Maternal Grandmother Thyroid Paternal Grandmother Stroke Paternal Grandmother age 50s Coronary Artery Disease Son MVA Diabetes Son Type II Breast Cancer Paternal Aunt other (gallbladder disease) Paternal Aunt Fathers side of the family SOCIAL HISTORY Social History Tobacco Use Smoking status: Former Smoker Packs/day: 0.50 Years: 12.00 Pack years: 6.00 Types: Cigarettes Quit date: 10/01/2018 Years since quittin.3 Smokeless tobacco: Never Used Tobacco comment: smokes a cigarette occasionally Vaping Use Vaping Use: Never used Substance Use Topics Alcohol use: No Drug use: Yes Frequency: 3.0 times per week Types: Marijuana Comment: 1-2 twice a month REVIEW OF SYSTEMS Abdomen: No abdominal pain, nausea, vomiting, diarrhea, or constipation. No bloating, early satiety, indigestion, or increased flatulence. Bladder: Long-term blood in urine. No dysuria, urinary frequency, urinary urgency, or incontinence.Has some urgency if she takes her diuretic. Breast: No breast lumps, nipple d/c, overlying skin changes, redness or skin retraction Allergies and current medication updated:Yes EXAM: BP 170/80 Ht 5' 0 (1.52m) Wt 180 lb 9.6 oz (81.9kg) BMI 35.27 kg/(m^2). Did not take all of her medication this morning. GENERAL: pleasant, female in no apparent distress HEENT: Normocephalic, atraumatic, mucus membranes moist and no lesions NECK: Supple, full range of motion, no adenopathy and thyroid normal DERMATOLOGY: Normal, without lesions, non-icteric and non-hirsute BREAST: soft, non-tender, symmetric, no dominant mass, normal nipple-areolar complex, no lymphadenopathy and no nipple discharge CHEST: Normal inspiratory effort ABDOMEN: soft, non-tender and no masses PELVIC: external genitalia normal, normal Bartholin's glands, urethra, Dana's glands, no vulvar lesions, no cervical lesions, good vaginal support, physiologic discharge present, normal appearing perineal body and perianal region BIMANUAL: no adnexal masses, non-tender and uterus surgically absent RECTOVAGINAL: deferred. NEURO: alert and oriented x3,exam grossly non-focal EXTREMITIES: normal ASSESSMENT/PLAN: 1) Health maintenance: Pap/HPV up to date. Mammogram ordered Mammogram up to date Nutrition, exercise and routine health maintenance exams reviewed. Calcium/Vitamin D supplementation information provided. Colon cancer screening: up to date with screening BMD: up to date Osteopenia left hip - wants to wait until next year to repeat 2) Follow up one year or sooner as needed Mari Turner APRN.DENISE documented in this encounterL[facility]01-10-[facility] History of Past illness Narrative* Problem Noted Date Resolved Date Type 2 diabetes mellitus without retinopathy 07/201904/04/2022 Type 2 diabetes mellitus without complication 04/04/2022 Neck pain 12/08/2014 12/16/2014 Cervical radiculitis 12/08/2014 12/16/2014 NO SHOW 06/07/2014 12/16/2014 Pain management 02/02/2014 12/16/2014 Overview: Dr. Kidd in [place]- plans to change to closer pain management. Disorder of bone and cartilage, unspecified 01/2512/16/2014 Overview: Fosamax ~[id number]. DM (diabetes mellitus) 11/23/2012 5 Last Assessment & Plan: Review of labs with slight elevation in blood sugars. Recent hgba1c with excellent control at 6.2. We continued her metformin 500mg daily. Fasting blood sugars are ranging 114 low to 130-155 max. Lumbago 05/30/2006 12/16/2014 Overview: L4,L5 compression fracture. [facility] as of 2012. Depressive disorder, not elsewhere classified 12/16/2014 Allergic rhinitis, cause unspecified 05/30/2006 12/16/2014 Obesity, unspecified 05/30/2006 12/16/2014 Esophageal reflux 12/16/2014 Benign neoplasm of colon 015 Diaphragmatic hernia without mention of obstruction or gangrene 02/21/2014 Hematuria 12/16/2014 Abdominal pain, unspecified site 11/23/2012 Diverticulitis of colon with hemorrhage 02/21/2014 Hypothyroidism 07/11/2015 documented as of this encounter (statuses as of 04/17/2022) [facility] History of Past illness Narrative* Problem Noted Date Resolved Date Type 2 diabetes mellitus without retinopathy 07/201904/04/2022 Type 2 diabetes mellitus without complication 04/04/2022 Neck pain 12/08/2014 12/16/2014 Cervical radiculitis 12/08/2014 12/16/2014 NO SHOW 06/07/2014 12/16/2014 Pain management 02/02/2014 12/16/2014 Overview: Dr. Kidd in [place]- plans to change to closer pain management. Disorder of bone and cartilage, unspecified 01/2512/16/2014 Overview: Fosamax ~[phone]. DM (diabetes mellitus) 11/23/2012 5 Last Assessment & Plan: Review of labs with slight elevation in blood sugars. Recent hgba1c with excellent control at 6.2. We continued her metformin 500mg daily. Fasting blood sugars are ranging 114 low to 130-155 max. Lumbago 05/30/2006 12/16/2014 Overview: L4,L5 compression fracture. [facility] as of 2012. Depressive disorder, not elsewhere classified 12/16/2014 Allergic rhinitis, cause unspecified 05/30/2006 12/16/2014 Obesity, unspecified 05/30/2006 12/16/2014 Esophageal reflux 12/16/2014 Benign neoplasm of colon 015 Diaphragmatic hernia without mention of obstruction or gangrene 02/21/2014 Hematuria 12/16/2014 Abdominal pain, unspecified site 11/23/2012 Diverticulitis of colon with hemorrhage 02/21/2014 Hypothyroidism 07/11/2015 documented as of this encounter (statuses as of 04/22/2022) [facility] History of Past illness Narrative* Problem Noted Date Resolved Date Type 2 diabetes mellitus without retinopathy 07/201904/04/2022 Type 2 diabetes mellitus without complication 04/04/2022 Neck pain 12/08/2014 12/16/2014 Cervical radiculitis 12/08/2014 12/16/2014 NO SHOW 06/07/2014 12/16/2014 Pain management 02/02/2014 12/16/2014 Overview: Dr. Kidd in [place]- plans to change to closer pain management. Disorder of bone and cartilage, unspecified 01/2512/16/2014 Overview: Fosamax ~[id number]. DM (diabetes mellitus) 11/23/2012 5 Last Assessment & Plan: Review of labs with slight elevation in blood sugars. Recent hgba1c with excellent control at 6.2. We continued her metformin 500mg daily. Fasting blood sugars are ranging 114 low to 130-155 max. Lumbago 05/30/2006 12/16/2014 Overview: L4,L5 compression fracture. [facility] as of 2012. Depressive disorder, not elsewhere classified 12/16/2014 Allergic rhinitis, cause unspecified 05/30/2006 12/16/2014 Obesity, unspecified 05/30/2006 12/16/2014 Esophageal reflux 12/16/2014 Benign neoplasm of colon 015 Diaphragmatic hernia without mention of obstruction or gangrene 02/21/2014 Hematuria 12/16/2014 Abdominal pain, unspecified site 11/23/2012 Diverticulitis of colon with hemorrhage 02/21/2014 Hypothyroidism 07/11/2015 documented as of this encounter (statuses as of 04/22/2022) [facility] History of Past illness Narrative* Problem Noted Date Resolved Date Type 2 diabetes mellitus without retinopathy 07/201904/04/2022 Type 2 diabetes mellitus without complication 04/04/2022 Neck pain 12/08/2014 12/16/2014 Cervical radiculitis 12/08/2014 12/16/2014 NO SHOW 06/07/2014 12/16/2014 Pain management 02/02/2014 12/16/2014 Overview: Dr. Kidd in [place]- plans to change to closer pain management. Disorder of bone and cartilage, unspecified 01/2512/16/2014 Overview: Fosamax ~[id number]. DM (diabetes mellitus) 11/23/2012 5 Last Assessment & Plan: Review of labs with slight elevation in blood sugars. Recent hgba1c with excellent control at 6.2. We continued her metformin 500mg daily. Fasting blood sugars are ranging 114 low to 130-155 max. Lumbago 05/30/2006 12/16/2014 Overview: L4,L5 compression fracture. [facility] as of 2012. Depressive disorder, not elsewhere classified 12/16/2014 Allergic rhinitis, cause unspecified 05/30/2006 12/16/2014 Obesity, unspecified 05/30/2006 12/16/2014 Esophageal reflux 12/16/2014 Benign neoplasm of colon 015 Diaphragmatic hernia without mention of obstruction or gangrene 02/21/2014 Hematuria 12/16/2014 Abdominal pain, unspecified site 11/23/2012 Diverticulitis of colon with hemorrhage 02/21/2014 Hypothyroidism 07/11/2015 documented as of this encounter (statuses as of 04/24/2022) [facility] History of Past illness Narrative* Problem Noted Date Resolved Date Type 2 diabetes mellitus without retinopathy 07/201904/04/2022 Type 2 diabetes mellitus without complication 04/04/2022 Neck pain 12/08/2014 12/16/2014 Cervical radiculitis 12/08/2014 12/16/2014 NO SHOW 06/07/2014 12/16/2014 Pain management 02/02/2014 12/16/2014 Overview: Dr. Kidd in [place]- plans to change to closer pain management. Disorder of bone and cartilage, unspecified 01/2512/16/2014 Overview: Fosamax ~[phone]. DM (diabetes mellitus) 11/23/2012 5 Last Assessment & Plan: Review of labs with slight elevation in blood sugars. Recent hgba1c with excellent control at 6.2. We continued her metformin 500mg daily. Fasting blood sugars are ranging 114 low to 130-155 max. Lumbago 05/30/2006 12/16/2014 Overview: L4,L5 compression fracture. [facility] as of 2012. Depressive disorder, not elsewhere classified 12/16/2014 Allergic rhinitis, cause unspecified 05/30/2006 12/16/2014 Obesity, unspecified 05/30/2006 12/16/2014 Esophageal reflux 12/16/2014 Benign neoplasm of colon 015 Diaphragmatic hernia without mention of obstruction or gangrene 02/21/2014 Hematuria 12/16/2014 Abdominal pain, unspecified site 11/23/2012 Diverticulitis of colon with hemorrhage 02/21/2014 Hypothyroidism 07/11/2015 documented as of this encounter (statuses as of 04/24/2022) [facility] of Past illness Narrative* Problem Noted Date Resolved Date Type 2 diabetes mellitus without retinopathy 07/201904/04/2022 Type 2 diabetes mellitus without complication 04/04/2022 Neck pain 12/08/2014 12/16/2014 Cervical radiculitis 12/08/2014 12/16/2014 NO SHOW 06/07/2014 12/16/2014 Pain management 02/02/2014 12/16/2014 Overview: Dr. Kidd in [place]- plans to change to closer pain management. Disorder of bone and cartilage, unspecified 01/2512/16/2014 Overview: Fosamax ~[phone]. DM (diabetes mellitus) 11/23/2012 5 Last Assessment & Plan: Review of labs with slight elevation in blood sugars. Recent hgba1c with excellent control at 6.2. We continued her metformin 500mg daily. Fasting blood sugars are ranging 114 low to 130-155 max. Lumbago 05/30/2006 12/16/2014 Overview: L4,L5 compression fracture. [facility] as of 2012. Depressive disorder, not elsewhere classified 12/16/2014 Allergic rhinitis, cause unspecified 05/30/2006 12/16/2014 Obesity, unspecified 05/30/2006 12/16/2014 Esophageal reflux 12/16/2014 Benign neoplasm of colon 015 Diaphragmatic hernia without mention of obstruction or gangrene 02/21/2014 Hematuria 12/16/2014 Abdominal pain, unspecified site 11/23/2012 Diverticulitis of colon with hemorrhage 02/21/2014 Hypothyroidism 07/11/2015 documented as of this encounter (statuses as of 04/24/2022) [facility] of Past illness Narrative* Problem Noted Date Resolved Date Type 2 diabetes mellitus without retinopathy 07/201904/04/2022 Type 2 diabetes mellitus without complication 04/04/2022 Neck pain 12/08/2014 12/16/2014 Cervical radiculitis 12/08/2014 12/16/2014 NO SHOW 06/07/2014 12/16/2014 Pain management 02/02/2014 12/16/2014 Overview: Dr. Kidd in [place]- plans to change to closer pain management. Disorder of bone and cartilage, unspecified 01/2512/16/2014 Overview: Fosamax ~[id number]. DM (diabetes mellitus) 11/23/2012 5 Last Assessment & Plan: Review of labs with slight elevation in blood sugars. Recent hgba1c with excellent control at 6.2. We continued her metformin 500mg daily. Fasting blood sugars are ranging 114 low to 130-155 max. Lumbago 05/30/2006 12/16/2014 Overview: L4,L5 compression fracture. [facility] as of 2012. Depressive disorder, not elsewhere classified 12/16/2014 Allergic rhinitis, cause unspecified 05/30/2006 12/16/2014 Obesity, unspecified 05/30/2006 12/16/2014 Esophageal reflux 12/16/2014 Benign neoplasm of colon 015 Diaphragmatic hernia without mention of obstruction or gangrene 02/21/2014 Hematuria 12/16/2014 Abdominal pain, unspecified site 11/23/2012 Diverticulitis of colon with hemorrhage 02/21/2014 Hypothyroidism 07/11/2015 documented as of this encounter (statuses as of 05/06/2022) [facility] of Past illness Narrative* Problem Noted Date Resolved Date Type 2 diabetes mellitus without retinopathy 07/201904/04/2022 Type 2 diabetes mellitus without complication 04/04/2022 Neck pain 12/08/2014 12/16/2014 Cervical radiculitis 12/08/2014 12/16/2014 NO SHOW 06/07/2014 12/16/2014 Pain management 02/02/2014 12/16/2014 Overview: Dr. Kidd in [place]- plans to change to closer pain management. Disorder of bone and cartilage, unspecified 01/2512/16/2014 Overview: Fosamax ~[phone]. DM (diabetes mellitus) 11/23/2012 Last Assessment & Plan: Review of labs with slight elevation in blood sugars. Recent hgba1c with excellent control at 6.2. We continued her metformin 500mg daily. Fasting blood sugars are ranging 114 low to 130-155 max. Lumbago 05/30/2006 12/16/2014 Overview: L4,L5 compression fracture. [facility] as of 2012. Depressive disorder, not elsewhere classified 12/16/2014 Allergic rhinitis, cause unspecified 05/30/2006 12/16/2014 Obesity, unspecified 05/30/2006 12/16/2014 Esophageal reflux 12/16/2014 Benign neoplasm of colon 015 Diaphragmatic hernia without mention of obstruction or gangrene 02/21/2014 Hematuria 12/16/2014 Abdominal pain, unspecified site 11/23/2012 Diverticulitis of colon with hemorrhage 02/21/2014 Hypothyroidism 07/11/2015 documented as of this encounter (statuses as of 05/10/2022) [facility] of [facility] illness Narrative* Problem Noted Date Resolved Date Type 2 diabetes mellitus without retinopathy 07/201904/04/2022 Type 2 diabetes mellitus without complication 04/04/2022 Neck pain 12/08/2014 12/16/2014 Cervical radiculitis 12/08/2014 12/16/2014 NO SHOW 06/07/2014 12/16/2014 Pain management 02/02/2014 12/16/2014 Overview: Dr. Kidd in [place]- plans to change to closer pain management. Disorder of bone and cartilage, unspecified 01/2512/16/2014 Overview: Fosamax ~[phone]. DM (diabetes mellitus) 11/23/2012 5 Last Assessment & Plan: Review of labs with slight elevation in blood sugars. Recent hgba1c with excellent control at 6.2. We continued her metformin 500mg daily. Fasting blood sugars are ranging 114 low to 130-155 max. Lumbago 05/30/2006 12/16/2014 Overview: L4,L5 compression fracture. [facility] as of 2012. Depressive disorder, not elsewhere classified 12/16/2014 Allergic rhinitis, cause unspecified 05/30/2006 12/16/2014 Obesity, unspecified 05/30/2006 12/16/2014 Esophageal reflux 12/16/2014 Benign neoplasm of colon 015 Diaphragmatic hernia without mention of obstruction or gangrene 02/21/2014 Hematuria 12/16/2014 Abdominal pain, unspecified site 11/23/2012 Diverticulitis of colon with hemorrhage 02/21/2014 Hypothyroidism 07/11/2015 documented as of this encounter (statuses as of 05/17/2022) [facility] Narrative* Problem Noted Date Resolved Date Type 2 diabetes mellitus without retinopathy 07/201904/04/2022 Type 2 diabetes mellitus without complication 04/04/2022 Neck pain 12/08/2014 12/16/2014 Cervical radiculitis 12/08/2014 12/16/2014 NO SHOW 06/07/2014 12/16/2014 Pain management 02/02/2014 12/16/2014 Overview: Dr. Kidd in [place]- plans to change to closer pain management. Disorder of bone and cartilage, unspecified 01/2512/16/2014 Overview: Fosamax ~[phone]. DM (diabetes mellitus) 11/23/2012 5 Last Assessment & Plan: Review of labs with slight elevation in blood sugars. Recent hgba1c with excellent control at 6.2. We continued her metformin 500mg daily. Fasting blood sugars are ranging 114 low to 130-155 max. Lumbago 05/30/2006 12/16/2014 Overview: L4,L5 compression fracture. [facility] as of 2012. Depressive disorder, not elsewhere classified 12/16/2014 Allergic rhinitis, cause unspecified 05/30/2006 12/16/2014 Obesity, unspecified 05/30/2006 12/16/2014 Esophageal reflux 12/16/2014 Benign neoplasm of colon 015 Diaphragmatic hernia without mention of obstruction or gangrene 02/21/2014 Hematuria 12/16/2014 Abdominal pain, unspecified site 11/23/2012 Diverticulitis of colon with hemorrhage 02/21/2014 Hypothyroidism 07/11/2015 documented as of this encounter (statuses as of 06/15/2022) [facility] of [facility] illness Narrative* Problem Noted Date Resolved Date Type 2 diabetes mellitus without retinopathy 07/201904/04/2022 Type 2 diabetes mellitus without complication 04/04/2022 Neck pain 12/08/2014 12/16/2014 Cervical radiculitis 12/08/2014 12/16/2014 NO SHOW 06/07/2014 12/16/2014 Pain management 02/02/2014 12/16/2014 Overview: Dr. Kidd in [place]- plans to change to closer pain management. Disorder of bone and cartilage, unspecified 01/2512/16/2014 Overview: Fosamax ~[phone]. DM (diabetes mellitus) 11/23/2012 5 Last Assessment & Plan: Review of labs with slight elevation in blood sugars. Recent hgba1c with excellent control at 6.2. We continued her metformin 500mg daily. Fasting blood sugars are ranging 114 low to 130-155 max. Lumbago 05/30/2006 12/16/2014 Overview: L4,L5 compression fracture. [facility] as of 2012. Depressive disorder, not elsewhere classified 12/16/2014 Allergic rhinitis, cause unspecified 05/30/2006 12/16/2014 Obesity, unspecified 05/30/2006 12/16/2014 Esophageal reflux 12/16/2014 Benign neoplasm of colon 015 Diaphragmatic hernia without mention of obstruction or gangrene 02/21/2014 Hematuria 12/16/2014 Abdominal pain, unspecified site 11/23/2012 Diverticulitis of colon with hemorrhage 02/21/2014 Hypothyroidism 07/11/2015 documented as of this encounter (statuses as of 06/17/2022) [facility] illness Narrative* Problem Noted Date Resolved Date Type 2 diabetes mellitus without retinopathy 07/201904/04/2022 Type 2 diabetes mellitus without complication 04/04/2022 Neck pain 12/08/2014 12/16/2014 Cervical radiculitis 12/08/2014 12/16/2014 NO SHOW 06/07/2014 12/16/2014 Pain management 02/02/2014 12/16/2014 Overview: Dr. Kidd in [place]- plans to change to closer pain management. Disorder of bone and cartilage, unspecified 01/2512/16/2014 Overview: Fosamax ~[id number]. DM (diabetes mellitus) 11/23/2012 5 Last Assessment & Plan: Review of labs with slight elevation in blood sugars. Recent hgba1c with excellent control at 6.2. We continued her metformin 500mg daily. Fasting blood sugars are ranging 114 low to 130-155 max. Lumbago 05/30/2006 12/16/2014 Overview: L4,L5 compression fracture. [facility] as of 2012. Depressive disorder, not elsewhere classified 12/16/2014 Allergic rhinitis, cause unspecified 05/30/2006 12/16/2014 Obesity, unspecified 05/30/2006 12/16/2014 Esophageal reflux 12/16/2014 Benign neoplasm of colon 015 Diaphragmatic hernia without mention of obstruction or gangrene 02/21/2014 Hematuria 12/16/2014 Abdominal pain, unspecified site 11/23/2012 Diverticulitis of colon with hemorrhage 02/21/2014 Hypothyroidism 07/11/2015 documented as of this encounter (statuses as of 06/17/2022) [facility] Past illness Narrative* Problem Noted Date Resolved Date Type 2 diabetes mellitus without retinopathy 07/201904/04/2022 Type 2 diabetes mellitus without complication 04/04/2022 Neck pain 12/08/2014 12/16/2014 Cervical radiculitis 12/08/2014 12/16/2014 NO SHOW 06/07/2014 12/16/2014 Pain management 02/02/2014 12/16/2014 Overview: Dr. Kidd in [place]- plans to change to closer pain management. Disorder of bone and cartilage, unspecified 01/2512/16/2014 Overview: Fosamax ~[id number]. DM (diabetes mellitus) 11/23/2012 5 Last Assessment & Plan: Review of labs with slight elevation in blood sugars. Recent hgba1c with excellent control at 6.2. We continued her metformin 500mg daily. Fasting blood sugars are ranging 114 low to 130-155 max. Lumbago 05/30/2006 12/16/2014 Overview: L4,L5 compression fracture. [facility] as of 2012. Depressive disorder, not elsewhere classified 12/16/2014 Allergic rhinitis, cause unspecified 05/30/2006 12/16/2014 Obesity, unspecified 05/30/2006 12/16/2014 Esophageal reflux 12/16/2014 Benign neoplasm of colon 015 Diaphragmatic hernia without mention of obstruction or gangrene 02/21/2014 Hematuria 12/16/2014 Abdominal pain, unspecified site 11/23/2012 Diverticulitis of colon with hemorrhage 02/21/2014 Hypothyroidism 07/11/2015 documented as of this encounter (statuses as of 06/18/2022) [facility]01-10-2019 History of Past illness Narrative* Problem Noted Date Resolved Date Type 2 diabetes mellitus without retinopathy 07/201904/04/2022 Type 2 diabetes mellitus without complication 04/04/2022 Neck pain 12/08/2014 12/16/2014 Cervical radiculitis 12/08/2014 12/16/2014 NO SHOW 06/07/2014 12/16/2014 Pain management 02/02/2014 12/16/2014 Overview: Dr. Kidd in [place]- plans to change to closer pain management. Disorder of bone and cartilage, unspecified 01/2512/16/2014 Overview: Fosamax ~[id number]. DM (diabetes mellitus) 11/23/2012 5 Last Assessment & Plan: Review of labs with slight elevation in blood sugars. Recent hgba1c with excellent control at 6.2. We continued her metformin 500mg daily. Fasting blood sugars are ranging 114 low to 130-155 max. Lumbago 05/30/2006 12/16/2014 Overview: L4,L5 compression fracture. [facility] as of 2012. Depressive disorder, not elsewhere classified 12/16/2014 Allergic rhinitis, cause unspecified 05/30/2006 12/16/2014 Obesity, unspecified 05/30/2006 12/16/2014 Esophageal reflux 12/16/2014 Benign neoplasm of colon 015 Diaphragmatic hernia without mention of obstruction or gangrene 02/21/2014 Hematuria 12/16/2014 Abdominal pain, unspecified site 11/23/2012 Diverticulitis of colon with hemorrhage 02/21/2014 Hypothyroidism 07/11/2015 documented as of this encounter (statuses as of 06/18/2022) [facility]01-[facility]2019 History of Past illness Narrative* Problem Noted Date Resolved Date Type 2 diabetes mellitus without retinopathy 07/201904/04/2022 Type 2 diabetes mellitus without complication 04/04/2022 Neck pain 12/08/2014 12/16/2014 Cervical radiculitis 12/08/2014 12/16/2014 NO SHOW 06/07/2014 12/16/2014 Pain management 02/02/2014 12/16/2014 Overview: Dr. Kidd in [place]- plans to change to closer pain management. Disorder of bone and cartilage, unspecified 01/2512/16/2014 Overview: Fosamax ~[id number]. DM (diabetes mellitus) 11/23/2012 5 Last Assessment & Plan: Review of labs with slight elevation in blood sugars. Recent hgba1c with excellent control at 6.2. We continued her metformin 500mg daily. Fasting blood sugars are ranging 114 low to 130-155 max. Lumbago 05/30/2006 12/16/2014 Overview: L4,L5 compression fracture. [facility] as of 2012. Depressive disorder, not elsewhere classified 12/16/2014 Allergic rhinitis, cause unspecified 05/30/2006 12/16/2014 Obesity, unspecified 05/30/2006 12/16/2014 Esophageal reflux 12/16/2014 Benign neoplasm of colon 015 Diaphragmatic hernia without mention of obstruction or gangrene 02/21/2014 Hematuria 12/16/2014 Abdominal pain, unspecified site 11/23/2012 Diverticulitis of colon with hemorrhage 02/21/2014 Hypothyroidism 07/11/2015 documented as of this encounter (statuses as of 07/19/2022) [facility]01-[facility]2019 History of Past illness Narrative* Problem Noted Date Resolved Date Type 2 diabetes mellitus without retinopathy 07/201904/04/2022 Type 2 diabetes mellitus without complication 04/04/2022 Neck pain 12/08/2014 12/16/2014 Cervical radiculitis 12/08/2014 12/16/2014 NO SHOW 06/07/2014 12/16/2014 Pain management 02/02/2014 12/16/2014 Overview: Dr. Kidd in [place]- plans to change to closer pain management. Disorder of bone and cartilage, unspecified 01/2512/16/2014 Overview: Fosamax ~[id number]. DM (diabetes mellitus) 11/23/2012 5 Last Assessment & Plan: Review of labs with slight elevation in blood sugars. Recent hgba1c with excellent control at 6.2. We continued her metformin 500mg daily. Fasting blood sugars are ranging 114 low to 130-155 max. Lumbago 05/30/2006 12/16/2014 Overview: L4,L5 compression fracture. [facility] as of 2012. Depressive disorder, not elsewhere classified 12/16/2014 Allergic rhinitis, cause unspecified 05/30/2006 12/16/2014 Obesity, unspecified 05/30/2006 12/16/2014 Esophageal reflux 12/16/2014 Benign neoplasm of colon 015 Diaphragmatic hernia without mention of obstruction or gangrene 02/21/2014 Hematuria 12/16/2014 Abdominal pain, unspecified site 11/23/2012 Diverticulitis of colon with hemorrhage 02/21/2014 Hypothyroidism 07/11/2015 documented as of this encounter (statuses as of 07/19/2022) [facility]01[facility]2019 History of Past illness Narrative* Problem Noted Date Resolved Date Type 2 diabetes mellitus without retinopathy 07/201904/04/2022 Type 2 diabetes mellitus without complication 04/04/2022 Neck pain 12/08/2014 12/16/2014 Cervical radiculitis 12/08/2014 12/16/2014 NO SHOW 06/07/2014 12/16/2014 Pain management 02/02/2014 12/16/2014 Overview: Dr. Kidd in [place]- plans to change to closer pain management. Disorder of bone and cartilage, unspecified 01/2512/16/2014 Overview: Fosamax ~[id number]. DM (diabetes mellitus) 11/23/2012 5 Last Assessment & Plan: Review of labs with slight elevation in blood sugars. Recent hgba1c with excellent control at 6.2. We continued her metformin 500mg daily. Fasting blood sugars are ranging 114 low to 130-155 max. Lumbago 05/30/2006 12/16/2014 Overview: L4,L5 compression fracture. [facility] as of 2012. Depressive disorder, not elsewhere classified 12/16/2014 Allergic rhinitis, cause unspecified 05/30/2006 12/16/2014 Obesity, unspecified 05/30/2006 12/16/2014 Esophageal reflux 12/16/2014 Benign neoplasm of colon 015 Diaphragmatic hernia without mention of obstruction or gangrene 02/21/2014 Hematuria 12/16/2014 Abdominal pain, unspecified site 11/23/2012 Diverticulitis of colon with hemorrhage 02/21/2014 Hypothyroidism 07/11/2015 documented as of this encounter (statuses as of 07/26/2022) [facility]01[facility]2019 History of Past illness Narrative* Problem Noted Date Resolved Date Type 2 diabetes mellitus without retinopathy 07/201904/04/2022 Type 2 diabetes mellitus without complication 04/04/2022 Neck pain 12/08/2014 12/16/2014 Cervical radiculitis 12/08/2014 12/16/2014 NO SHOW 06/07/2014 12/16/2014 Pain management 02/02/2014 12/16/2014 Overview: Dr. Kidd in [place]- plans to change to closer pain management. Disorder of bone and cartilage, unspecified 01/2512/16/2014 Overview: Fosamax ~[id number]. DM (diabetes mellitus) 11/23/2012 5 Last Assessment & Plan: Review of labs with slight elevation in blood sugars. Recent hgba1c with excellent control at 6.2. We continued her metformin 500mg daily. Fasting blood sugars are ranging 114 low to 130-155 max. Lumbago 05/30/2006 12/16/2014 Overview: L4,L5 compression fracture. [facility] as of 2012. Depressive disorder, not elsewhere classified 12/16/2014 Allergic rhinitis, cause unspecified 05/30/2006 12/16/2014 Obesity, unspecified 05/30/2006 12/16/2014 Esophageal reflux 12/16/2014 Benign neoplasm of colon 015 Diaphragmatic hernia without mention of obstruction or gangrene 02/21/2014 Hematuria 12/16/2014 Abdominal pain, unspecified site 11/23/2012 Diverticulitis of colon with hemorrhage 02/21/2014 Hypothyroidism 07/11/2015 documented as of this encounter (statuses as of 08/15/2022) [facility]01-[facility]2019 History of Past illness Narrative* Problem Noted Date Resolved Date Type 2 diabetes mellitus without retinopathy 07/201904/04/2022 Type 2 diabetes mellitus without complication 04/04/2022 Neck pain 12/08/2014 12/16/2014 Cervical radiculitis 12/08/2014 12/16/2014 NO SHOW 06/07/2014 12/16/2014 Pain management 02/02/2014 12/16/2014 Overview: Dr. Kidd in [place]- plans to change to closer pain management. Disorder of bone and cartilage, unspecified 01/2512/16/2014 Overview: Fosamax ~[id number]. DM (diabetes mellitus) 11/23/2012 5 Last Assessment & Plan: Review of labs with slight elevation in blood sugars. Recent hgba1c with excellent control at 6.2. We continued her metformin 500mg daily. Fasting blood sugars are ranging 114 low to 130-155 max. Lumbago 05/30/2006 12/16/2014 Overview: L4,L5 compression fracture. [facility] as of 2012. Depressive disorder, not elsewhere classified 12/16/2014 Allergic rhinitis, cause unspecified 05/30/2006 12/16/2014 Obesity, unspecified 05/30/2006 12/16/2014 Esophageal reflux 12/16/2014 Benign neoplasm of colon 015 Diaphragmatic hernia without mention of obstruction or gangrene 02/21/2014 Hematuria 12/16/2014 Abdominal pain, unspecified site 11/23/2012 Diverticulitis of colon with hemorrhage 02/21/2014 Hypothyroidism 07/11/2015 documented as of this encounter (statuses as of 11/02/2022) [facility]01[facility]2019 History of Past illness Narrative* Problem Noted Date Resolved Date Type 2 diabetes mellitus without retinopathy 07/201904/04/2022 Type 2 diabetes mellitus without complication 04/04/2022 Neck pain 12/08/2014 12/16/2014 Cervical radiculitis 12/08/2014 12/16/2014 NO SHOW 06/07/2014 12/16/2014 Pain management 02/02/2014 12/16/2014 Overview: Dr. Kidd in [place]- plans to change to closer pain management. Disorder of bone and cartilage, unspecified 01/2512/16/2014 Overview: Fosamax ~[id number]. DM (diabetes mellitus) 11/23/2012 5 Last Assessment & Plan: Review of labs with slight elevation in blood sugars. Recent hgba1c with excellent control at 6.2. We continued her metformin 500mg daily. Fasting blood sugars are ranging 114 low to 130-155 max. Lumbago 05/30/2006 12/16/2014 Overview: L4,L5 compression fracture. [facility] of 2012. Depressive disorder, not elsewhere classified 12/16/2014 Allergic rhinitis, cause unspecified 05/30/2006 12/16/2014 Obesity, unspecified 05/30/2006 12/16/2014 Esophageal reflux 12/16/2014 Benign neoplasm of colon 015 Diaphragmatic hernia without mention of obstruction or gangrene 02/21/2014 Hematuria 12/16/2014 Abdominal pain, unspecified site 11/23/2012 Diverticulitis of colon with hemorrhage 02/21/2014 Hypothyroidism 07/11/2015 documented as of this encounter (statuses as of 11/04/2022) [facility]01[facility]2019 History of Past illness Narrative* Problem Noted Date Resolved Date Type 2 diabetes mellitus without retinopathy 07/201904/04/2022 Type 2 diabetes mellitus without complication 04/04/2022 Neck pain 12/08/2014 12/16/2014 Cervical radiculitis 12/08/2014 12/16/2014 NO SHOW 06/07/2014 12/16/2014 Pain management 02/02/2014 12/16/2014 Overview: Dr. Kidd in [place]- plans to change to closer pain management. Disorder of bone and cartilage, unspecified 01/2512/16/2014 Overview: Fosamax ~[id number]. DM (diabetes mellitus) 11/23/2012 5 Last Assessment & Plan: Review of labs with slight elevation in blood sugars. Recent hgba1c with excellent control at 6.2. We continued her metformin 500mg daily. Fasting blood sugars are ranging 114 low to 130-155 max. Lumbago 05/30/2006 12/16/2014 Overview: L4,L5 compression fracture. [facility] of 2012. Depressive disorder, not elsewhere classified 12/16/2014 Allergic rhinitis, cause unspecified 05/30/2006 12/16/2014 Obesity, unspecified 05/30/2006 12/16/2014 Esophageal reflux 12/16/2014 Benign neoplasm of colon 015 Diaphragmatic hernia without mention of obstruction or gangrene 02/21/2014 Hematuria 12/16/2014 Abdominal pain, unspecified site 11/23/2012 Diverticulitis of colon with hemorrhage 02/21/2014 Hypothyroidism 07/11/2015 documented as of this encounter (statuses as of 11/06/2022) [facility]01[facility]2019 History of Past illness Narrative* Problem Noted Date Resolved Date Type 2 diabetes mellitus without retinopathy 07/201904/04/2022 Type 2 diabetes mellitus without complication 04/04/2022 Neck pain 12/08/2014 12/16/2014 Cervical radiculitis 12/08/2014 12/16/2014 NO SHOW 06/07/2014 12/16/2014 Pain management 02/02/2014 12/16/2014 Overview: Dr. Kidd in [place]- plans to change to closer pain management. Disorder of bone and cartilage, unspecified 01/2512/16/2014 Overview: Fosamax ~[id number]. DM (diabetes mellitus) 11/23/2012 5 Last Assessment & Plan: Review of labs with slight elevation in blood sugars. Recent hgba1c with excellent control at 6.2. We continued her metformin 500mg daily. Fasting blood sugars are ranging 114 low to 130-155 max. Lumbago 05/30/2006 12/16/2014 Overview: L4,L5 compression fracture. [facility] as of 2012. Depressive disorder, not elsewhere classified 12/16/2014 Allergic rhinitis, cause unspecified 05/30/2006 12/16/2014 Obesity, unspecified 05/30/2006 12/16/2014 Esophageal reflux 12/16/2014 Benign neoplasm of colon 015 Diaphragmatic hernia without mention of obstruction or gangrene 02/21/2014 Hematuria 12/16/2014 Abdominal pain, unspecified site 11/23/2012 Diverticulitis of colon with hemorrhage 02/21/2014 Hypothyroidism 07/11/2015 documented as of this encounter (statuses as of 11/11/2022) [facility]2019 History of Past illness Narrative* Problem Noted Date Resolved Date Type 2 diabetes mellitus without retinopathy 07/201904/04/2022 Type 2 diabetes mellitus without complication 04/04/2022 Neck pain 12/08/2014 12/16/2014 Cervical radiculitis 12/08/2014 12/16/2014 NO SHOW 06/07/2014 12/16/2014 Pain management 02/02/2014 12/16/2014 Overview: Dr. Kidd in [place]- plans to change to closer pain management. Disorder of bone and cartilage, unspecified 01/2512/16/2014 Overview: Fosamax ~[id number]. DM (diabetes mellitus) 11/23/2012 5 Last Assessment & Plan: Review of labs with slight elevation in blood sugars. Recent hgba1c with excellent control at 6.2. We continued her metformin 500mg daily. Fasting blood sugars are ranging 114 low to 130-155 max. Lumbago 05/30/2006 12/16/2014 Overview: L4,L5 compression fracture. [facility] of 2012. Depressive disorder, not elsewhere classified 12/16/2014 Allergic rhinitis, cause unspecified 05/30/2006 12/16/2014 Obesity, unspecified 05/30/2006 12/16/2014 Esophageal reflux 12/16/2014 Benign neoplasm of colon 015 Diaphragmatic hernia without mention of obstruction or gangrene 02/21/2014 Hematuria 12/16/2014 Abdominal pain, unspecified site 11/23/2012 Diverticulitis of colon with hemorrhage 02/21/2014 Hypothyroidism 07/11/2015 documented as of this encounter (statuses as of 12/06/2022) [facility]01[facility]2019 History of Past illness Narrative* Problem Noted Date Resolved Date Type 2 diabetes mellitus without retinopathy 07/201904/04/2022 Type 2 diabetes mellitus without complication 04/04/2022 Neck pain 12/08/2014 12/16/2014 Cervical radiculitis 12/08/2014 12/16/2014 NO SHOW 06/07/2014 12/16/2014 Pain management 02/02/2014 12/16/2014 Overview: Dr. Kidd in [place]- plans to change to closer pain management. Disorder of bone and cartilage, unspecified 01/2512/16/2014 Overview: Fosamax ~[id number]. DM (diabetes mellitus) 11/23/2012 5 Last Assessment & Plan: Review of labs with slight elevation in blood sugars. Recent hgba1c with excellent control at 6.2. We continued her metformin 500mg daily. Fasting blood sugars are ranging 114 low to 130-155 max. Lumbago 05/30/2006 12/16/2014 Overview: L4,L5 compression fracture. [facility] as of 2012. Depressive disorder, not elsewhere classified 12/16/2014 Allergic rhinitis, cause unspecified 05/30/2006 12/16/2014 Obesity, unspecified 05/30/2006 12/16/2014 Esophageal reflux 12/16/2014 Benign neoplasm of colon 015 Diaphragmatic hernia without mention of obstruction or gangrene 02/21/2014 Hematuria 12/16/2014 Abdominal pain, unspecified site 11/23/2012 Diverticulitis of colon with hemorrhage 02/21/2014 Hypothyroidism 07/11/2015 documented as of this encounter (statuses as of 03/10/2023) [facility] History of Past illness Narrative* Problem Noted Date Resolved Date Neck pain 12/08/2014 12/16/2014 Cervical radiculitis 12/08/2014 12/16/2014 NO SHOW 06/07/2014 12/16/2014 Pain management 02/02/2014 12/16/2014 Overview: Dr. Kidd in [place]- plans to change to closer pain management. Disorder of bone and cartilage, unspecified 01/2512/16/2014 Overview: Fosamax ~[id number]. DM (diabetes mellitus) 11/23/2012 Last Assessment & Plan: Review of labs with slight elevation in blood sugars. Recent hgba1c with excellent control at 6.2. We continued her metformin 500mg daily. Fasting blood sugars are ranging 114 low to 130-155 max. Lumbago 05/30/2006 12/16/2014 Overview: L4,L5 compression fracture. [facility] of 2012. Depressive disorder, not elsewhere classified 12/16/2014 Allergic rhinitis, cause unspecified 05/30/2006 12/16/2014 Obesity, unspecified 05/30/2006 12/16/2014 Esophageal reflux 12/16/2014 Benign neoplasm of colon 015 Diaphragmatic hernia without mention of obstruction or gangrene 02/21/2014 Hematuria 12/16/2014 Abdominal pain, unspecified site 11/23/2012 Diverticulitis of colon with hemorrhage 02/21/2014 Hypothyroidism 07/11/2015 documented as of this encounter (statuses as of 01/22/2022) [facility] History of Past illness Narrative* Problem Noted Date Resolved Date Neck pain 12/08/2014 12/16/2014 Cervical radiculitis 12/08/2014 12/16/2014 NO SHOW 06/07/2014 12/16/2014 Pain management 02/02/2014 12/16/2014 Overview: Dr. Kidd in [place]- plans to change to closer pain management. Disorder of bone and cartilage, unspecified 01/2512/16/2014 Overview: Fosamax ~[id number]. DM (diabetes mellitus) 11/23/2012 5 Last Assessment & Plan: Review of labs with slight elevation in blood sugars. Recent hgba1c with excellent control at 6.2. We continued her metformin 500mg daily. Fasting blood sugars are ranging 114 low to 130-155 max. Lumbago 05/30/2006 12/16/2014 Overview: L4,L5 compression fracture. [facility] of 2012. Depressive disorder, not elsewhere classified 12/16/2014 Allergic rhinitis, cause unspecified 05/30/2006 12/16/2014 Obesity, unspecified 05/30/2006 12/16/2014 Esophageal reflux 12/16/2014 Benign neoplasm of colon 015 Diaphragmatic hernia without mention of obstruction or gangrene 02/21/2014 Hematuria 12/16/2014 Abdominal pain, unspecified site 11/23/2012 Diverticulitis of colon with hemorrhage 02/21/2014 Hypothyroidism 07/11/2015 documented as of this encounter (statuses as of 01/23/2022) [facility] History of Past illness Narrative* Problem Noted Date Resolved Date Neck pain 12/08/2014 12/16/2014 Cervical radiculitis 12/08/2014 12/16/2014 NO SHOW 06/07/2014 12/16/2014 Pain management 02/02/2014 12/16/2014 Overview: Dr. Kidd in [place]- plans to change to closer pain management. Disorder of bone and cartilage, unspecified 01/2512/16/2014 Overview: Fosamax ~[id number]. DM (diabetes mellitus) 11/23/2012 5 Last Assessment & Plan: Review of labs with slight elevation in blood sugars. Recent hgba1c with excellent control at 6.2. We continued her metformin 500mg daily. Fasting blood sugars are ranging 114 low to 130-155 max. Lumbago 05/30/2006 12/16/2014 Overview: L4,L5 compression fracture. [facility] of 2012. Depressive disorder, not elsewhere classified 12/16/2014 Allergic rhinitis, cause unspecified 05/30/2006 12/16/2014 Obesity, unspecified 05/30/2006 12/16/2014 Esophageal reflux 12/16/2014 Benign neoplasm of colon 015 Diaphragmatic hernia without mention of obstruction or gangrene 02/21/2014 Hematuria 12/16/2014 Abdominal pain, unspecified site 11/23/2012 Diverticulitis of colon with hemorrhage 02/21/2014 Hypothyroidism 07/11/2015 documented as of this encounter (statuses as of 01/23/2022) [facility] History of Past illness Narrative* Problem Noted Date Resolved Date Neck pain 12/08/2014 12/16/2014 Cervical radiculitis 12/08/2014 12/16/2014 NO SHOW 06/07/2014 12/16/2014 Pain management 02/02/2014 12/16/2014 Overview: Dr. Kidd in [place]- plans to change to closer pain management. Disorder of bone and cartilage, unspecified 01/2512/16/2014 Overview: Fosamax ~[id number]. DM (diabetes mellitus) 11/23/2012 5 Last Assessment & Plan: Review of labs with slight elevation in blood sugars. Recent hgba1c with excellent control at 6.2. We continued her metformin 500mg daily. Fasting blood sugars are ranging 114 low to 130-155 max. Lumbago 05/30/2006 12/16/2014 Overview: L4,L5 compression fracture. [facility] of 2012. Depressive disorder, not elsewhere classified 12/16/2014 Allergic rhinitis, cause unspecified 05/30/2006 12/16/2014 Obesity, unspecified 05/30/2006 12/16/2014 Esophageal reflux 12/16/2014 Benign neoplasm of colon 015 Diaphragmatic hernia without mention of obstruction or gangrene 02/21/2014 Hematuria 12/16/2014 Abdominal pain, unspecified site 11/23/2012 Diverticulitis of colon with hemorrhage 02/21/2014 Hypothyroidism 07/11/2015 documented as of this encounter (statuses as of 01/24/2022) [facility] History of Past illness Narrative* Problem Noted Date Resolved Date Neck pain 12/08/2014 12/16/2014 Cervical radiculitis 12/08/2014 12/16/2014 NO SHOW 06/07/2014 12/16/2014 Pain management 02/02/2014 12/16/2014 Overview: Dr. Kidd in [place]- plans to change to closer pain management. Disorder of bone and cartilage, unspecified 01/2512/16/2014 Overview: Fosamax ~[id number]. DM (diabetes mellitus) 11/23/2012 5 Last Assessment & Plan: Review of labs with slight elevation in blood sugars. Recent hgba1c with excellent control at 6.2. We continued her metformin 500mg daily. Fasting blood sugars are ranging 114 low to 130-155 max. Lumbago 05/30/2006 12/16/2014 Overview: L4,L5 compression fracture. [facility] of 2012. Depressive disorder, not elsewhere classified 12/16/2014 Allergic rhinitis, cause unspecified 05/30/2006 12/16/2014 Obesity, unspecified 05/30/2006 12/16/2014 Esophageal reflux 12/16/2014 Benign neoplasm of colon 015 Diaphragmatic hernia without mention of obstruction or gangrene 02/21/2014 Hematuria 12/16/2014 Abdominal pain, unspecified site 11/23/2012 Diverticulitis of colon with hemorrhage 02/21/2014 Hypothyroidism 07/11/2015 documented as of this encounter (statuses as of 01/25/2022) [facility] History of Past illness Narrative* Problem Noted Date Resolved Date Neck pain 12/08/2014 12/16/2014 Cervical radiculitis 12/08/2014 12/16/2014 NO SHOW 06/07/2014 12/16/2014 Pain management 02/02/2014 12/16/2014 Overview: Dr. Kidd in [place]- plans to change to closer pain management. Disorder of bone and cartilage, unspecified 01/2512/16/2014 Overview: Fosamax ~[id number]. DM (diabetes mellitus) 11/23/2012 5 Last Assessment & Plan: Review of labs with slight elevation in blood sugars. Recent hgba1c with excellent control at 6.2. We continued her metformin 500mg daily. Fasting blood sugars are ranging 114 low to 130-155 max. Lumbago 05/30/2006 12/16/2014 Overview: L4,L5 compression fracture. [facility] as of 2012. Depressive disorder, not elsewhere classified 12/16/2014 Allergic rhinitis, cause unspecified 05/30/2006 12/16/2014 Obesity, unspecified 05/30/2006 12/16/2014 Esophageal reflux 12/16/2014 Benign neoplasm of colon 015 Diaphragmatic hernia without mention of obstruction or gangrene 02/21/2014 Hematuria 12/16/2014 Abdominal pain, unspecified site 11/23/2012 Diverticulitis of colon with hemorrhage 02/21/2014 Hypothyroidism 07/11/2015 documented as of this encounter (statuses as of 02/27/2022) [facility]02-[facility]2015 History of Past illness Narrative* Problem Noted Date Resolved Date Neck pain 12/08/2014 12/16/2014 Cervical radiculitis 12/08/2014 12/16/2014 NO SHOW 06/07/2014 12/16/2014 Pain management 02/02/2014 12/16/2014 Overview: Dr. Kidd in [place]- plans to change to closer pain management. Disorder of bone and cartilage, unspecified 01/2512/16/2014 Overview: Fosamax ~[id number]. DM (diabetes mellitus) 11/23/2012 5 Last Assessment & Plan: Review of labs with slight elevation in blood sugars. Recent hgba1c with excellent control at 6.2. We continued her metformin 500mg daily. Fasting blood sugars are ranging 114 low to 130-155 max. Lumbago 05/30/2006 12/16/2014 Overview: L4,L5 compression fracture. [facility] as of 2012. Depressive disorder, not elsewhere classified 12/16/2014 Allergic rhinitis, cause unspecified 05/30/2006 12/16/2014 Obesity, unspecified 05/30/2006 12/16/2014 Esophageal reflux 12/16/2014 Benign neoplasm of colon 015 Diaphragmatic hernia without mention of obstruction or gangrene 02/21/2014 Hematuria 12/16/2014 Abdominal pain, unspecified site 11/23/2012 Diverticulitis of colon with hemorrhage 02/21/2014 Hypothyroidism 07/11/2015 documented as of this encounter (statuses as of 02/28/2022) [facility] History of Past illness Narrative* Problem Noted Date Resolved Date Neck pain 12/08/2014 12/16/2014 Cervical radiculitis 12/08/2014 12/16/2014 NO SHOW 06/07/2014 12/16/2014 Pain management 02/02/2014 12/16/2014 Overview: Dr. Kidd in [place]- plans to change to closer pain management. Disorder of bone and cartilage, unspecified 01/2512/16/2014 Overview: Fosamax ~[id number]. DM (diabetes mellitus) 11/23/2012 5 Last Assessment & Plan: Review of labs with slight elevation in blood sugars. Recent hgba1c with excellent control at 6.2. We continued her metformin 500mg daily. Fasting blood sugars are ranging 114 low to 130-155 max. Lumbago 05/30/2006 12/16/2014 Overview: L4,L5 compression fracture. [facility] as of 2012. Depressive disorder, not elsewhere classified 12/16/2014 Allergic rhinitis, cause unspecified 05/30/2006 12/16/2014 Obesity, unspecified 05/30/2006 12/16/2014 Esophageal reflux 12/16/2014 Benign neoplasm of colon 015 Diaphragmatic hernia without mention of obstruction or gangrene 02/21/2014 Hematuria 12/16/2014 Abdominal pain, unspecified site 11/23/2012 Diverticulitis of colon with hemorrhage 02/21/2014 Hypothyroidism 07/11/2015 documented as of this encounter (statuses as of 02/28/2022) [facility] History of Past illness Narrative* Problem Noted Date Resolved Date Neck pain 12/08/2014 12/16/2014 Cervical radiculitis 12/08/2014 12/16/2014 NO SHOW 06/07/2014 12/16/2014 Pain management 02/02/2014 12/16/2014 Overview: Dr. Kidd in [place]- plans to change to closer pain management. Disorder of bone and cartilage, unspecified 01/2512/16/2014 Overview: Fosamax ~[id number]. DM (diabetes mellitus) 11/23/2012 5 Last Assessment & Plan: Review of labs with slight elevation in blood sugars. Recent hgba1c with excellent control at 6.2. We continued her metformin 500mg daily. Fasting blood sugars are ranging 114 low to 130-155 max. Lumbago 05/30/2006 12/16/2014 Overview: L4,L5 compression fracture. [facility] as of 2012. Depressive disorder, not elsewhere classified 12/16/2014 Allergic rhinitis, cause unspecified 05/30/2006 12/16/2014 Obesity, unspecified 05/30/2006 12/16/2014 Esophageal reflux 12/16/2014 Benign neoplasm of colon 015 Diaphragmatic hernia without mention of obstruction or gangrene 02/21/2014 Hematuria 12/16/2014 Abdominal pain, unspecified site 11/23/2012 Diverticulitis of colon with hemorrhage 02/21/2014 Hypothyroidism 07/11/2015 documented as of this encounter (statuses as of 03/06/2022) [facility] History of Past illness Narrative* Problem Noted Date Resolved Date Neck pain 12/08/2014 12/16/2014 Cervical radiculitis 12/08/2014 12/16/2014 NO SHOW 06/07/2014 12/16/2014 Pain management 02/02/2014 12/16/2014 Overview: Dr. Kidd in [place]- plans to change to closer pain management. Disorder of bone and cartilage, unspecified 01/2512/16/2014 Overview: Fosamax ~[id number]. DM (diabetes mellitus) 11/23/2012 5 Last Assessment & Plan: Review of labs with slight elevation in blood sugars. Recent hgba1c with excellent control at 6.2. We continued her metformin 500mg daily. Fasting blood sugars are ranging 114 low to 130-155 max. Lumbago 05/30/2006 12/16/2014 Overview: L4,L5 compression fracture. [facility] as of 2012. Depressive disorder, not elsewhere classified 12/16/2014 Allergic rhinitis, cause unspecified 05/30/2006 12/16/2014 Obesity, unspecified 05/30/2006 12/16/2014 Esophageal reflux 12/16/2014 Benign neoplasm of colon 015 Diaphragmatic hernia without mention of obstruction or gangrene 02/21/2014 Hematuria 12/16/2014 Abdominal pain, unspecified site 11/23/2012 Diverticulitis of colon with hemorrhage 02/21/2014 Hypothyroidism 07/11/2015 documented as of this encounter (statuses as of 03/11/2022) [facility] History of Past illness Narrative* Problem Noted Date Resolved Date Neck pain 12/08/2014 12/16/2014 Cervical radiculitis 12/08/2014 12/16/2014 NO SHOW 06/07/2014 12/16/2014 Pain management 02/02/2014 12/16/2014 Overview: Dr. Kidd in [place]- plans to change to closer pain management. Disorder of bone and cartilage, unspecified 01/2512/16/2014 Overview: Fosamax ~[id number]. DM (diabetes mellitus) 11/23/2012 5 Last Assessment & Plan: Review of labs with slight elevation in blood sugars. Recent hgba1c with excellent control at 6.2. We continued her metformin 500mg daily. Fasting blood sugars are ranging 114 low to 130-155 max. Lumbago 05/30/2006 12/16/2014 Overview: L4,L5 compression fracture. [facility] as of 2012. Depressive disorder, not elsewhere classified 12/16/2014 Allergic rhinitis, cause unspecified 05/30/2006 12/16/2014 Obesity, unspecified 05/30/2006 12/16/2014 Esophageal reflux 12/16/2014 Benign neoplasm of colon 015 Diaphragmatic hernia without mention of obstruction or gangrene 02/21/2014 Hematuria 12/16/2014 Abdominal pain, unspecified site 11/23/2012 Diverticulitis of colon with hemorrhage 02/21/2014 Hypothyroidism 07/11/2015 documented as of this encounter (statuses as of 03/19/2022) [facility] History of Past illness Narrative* Problem Noted Date Resolved Date Neck pain 12/08/2014 12/16/2014 Cervical radiculitis 12/08/2014 12/16/2014 NO SHOW 06/07/2014 12/16/2014 Pain management 02/02/2014 12/16/2014 Overview: Dr. Kidd in [place]- plans to change to closer pain management. Disorder of bone and cartilage, unspecified 01/2512/16/2014 Overview: Fosamax ~[id number]. DM (diabetes mellitus) 11/23/2012 5 Last Assessment & Plan: Review of labs with slight elevation in blood sugars. Recent hgba1c with excellent control at 6.2. We continued her metformin 500mg daily. Fasting blood sugars are ranging 114 low to 130-155 max. Lumbago 05/30/2006 12/16/2014 Overview: L4,L5 compression fracture. [facility] as of 2012. Depressive disorder, not elsewhere classified 12/16/2014 Allergic rhinitis, cause unspecified 05/30/2006 12/16/2014 Obesity, unspecified 05/30/2006 12/16/2014 Esophageal reflux 12/16/2014 Benign neoplasm of colon 015 Diaphragmatic hernia without mention of obstruction or gangrene 02/21/2014 Hematuria 12/16/2014 Abdominal pain, unspecified site 11/23/2012 Diverticulitis of colon with hemorrhage 02/21/2014 Hypothyroidism 07/11/2015 documented as of this encounter (statuses as of 03/26/2022) [facility] History of Past illness Narrative* Problem Noted Date Resolved Date Neck pain 12/08/2014 12/16/2014 Cervical radiculitis 12/08/2014 12/16/2014 NO SHOW 06/07/2014 12/16/2014 Pain management 02/02/2014 12/16/2014 Overview: Dr. Kidd in [place]- plans to change to closer pain management. Disorder of bone and cartilage, unspecified 01/2512/16/2014 Overview: Fosamax ~[phone]. DM (diabetes mellitus) 11/23/2012 5 Last Assessment & Plan: Review of labs with slight elevation in blood sugars. Recent hgba1c with excellent control at 6.2. We continued her metformin 500mg daily. Fasting blood sugars are ranging 114 low to 130-155 max. Lumbago 05/30/2006 12/16/2014 Overview: L4,L5 compression fracture. [facility] as of 2012. Depressive disorder, not elsewhere classified 12/16/2014 Allergic rhinitis, cause unspecified 05/30/2006 12/16/2014 Obesity, unspecified 05/30/2006 12/16/2014 Esophageal reflux 12/16/2014 Benign neoplasm of colon 015 Diaphragmatic hernia without mention of obstruction or gangrene 02/21/2014 Hematuria 12/16/2014 Abdominal pain, unspecified site 11/23/2012 Diverticulitis of colon with hemorrhage 02/21/2014 Hypothyroidism 07/11/2015 documented as of this encounter (statuses as of 04/04/2022) [facility] note* Diagnosis Encounter for gynecological examination (general) (routine) without abnormal findings- Primary Encounter for screening mammogram for breast cancer documented in this encounter [facility] note* Diagnosis Encounter for screening mammogram for breast cancer documented in this encounter [facility] note* Diagnosis Encounter for screening mammogram for breast cancer [facility] Diagnosis Abnormal mammogram Abnormal mammogram, unspecified [facility] Diagnosis Diverticulitis- Primary Diverticulitis of colon (without mention of hemorrhage) Crohn's disease involving terminal ileum (HCC) Acquired hypothyroidism Unspecified hypothyroidism Essential hypertension, benign Type 2 diabetes mellitus without retinopathy (HCC) Type II or unspecified type diabetes mellitus without mention of complication, not stated as uncontrolled documented in this encounter [facility] note* Diagnosis Crohn's disease involving terminal ileum (HCC)- Primary Sigmoid diverticulitis Diverticulitis of colon (without mention of hemorrhage) Chronic antral gastritis Atrophic gastritis without mention of hemorrhage Early satiety Nausea Nausea alone Skin exam, screening for cancer Screening for malignant neoplasm of the skin documented in this encounter [facility] note* Diagnosis Crohn's disease involving terminal ileum (HCC) [facility] Diagnosis Sigmoid diverticulitis- Primary Diverticulitis of colon (without mention of hemorrhage) [facility] Diagnosis Early satiety Nausea Nausea alone documented in this encounter [facility] note* Diagnosis Essential hypertension, benign documented in this encounter [facility] note* Diagnosis Need for vaccination- Primary Need for prophylactic vaccination and inoculation against unspecified single disease [facility] Diagnosis Left lower quadrant abdominal pain- Primary RLQ abdominal pain Abdominal pain, right lower quadrant Pelvic pain Vaginal itching Pruritus of genital organs [facility] Diagnosis Left lower quadrant abdominal pain RLQ abdominal pain Abdominal pain, right lower quadrant Pelvic pain [facility]* Diagnosis Vaginal itching Pruritus of genital organs [facility] Diagnosis Need for vaccination- Primary Need for prophylactic vaccination and inoculation against unspecified single disease [facility] Diagnosis Crohn's disease involving terminal ileum (HCC) Sigmoid diverticulitis Diverticulitis of colon (without mention of hemorrhage) Preop examination Preoperative examination, unspecified LINDY on CPAP Obstructive sleep apnea (adult) (pediatric) Hyperlipidemia, unspecified hyperlipidemia type Hypertension, unspecified type [facility]* Diagnosis Periumbilical abdominal pain- Primary Abdominal pain, periumbilic Seasonal allergies Allergic rhinitis, cause unspecified Acute constipation Unspecified constipation [facility] this [facility]* Diagnosis Acquired hypothyroidism Unspecified hypothyroidism documented in this encounter [facility] note* Diagnosis Periumbilical abdominal pain- Primary Abdominal pain, periumbilic Acute constipation Unspecified constipation documented in this encounter [facility] note* Diagnosis Periumbilical abdominal pain Abdominal pain, periumbilic Acute constipation Unspecified constipation [facility]* Diagnosis Essential hypertension, benign documented in this encounter [facility] note* Diagnosis Hypokalemia Hypopotassemia [facility] this [facility]* Diagnosis Essential hypertension, benign Crohn's disease involving terminal ileum (HCC) documented in this encounter [facility] note* Diagnosis Crohn's disease involving terminal ileum (HCC) Essential hypertension, benign Cervical spondylosis without myelopathy documented in this encounter [facility] note* Diagnosis Chronic low back pain with left-sided sciatica, unspecified back pain laterality- Primary Essential hypertension, benign Acquired hypothyroidism Unspecified hypothyroidism Crohn's disease involving terminal ileum (HCC) Mixed hyperlipidemia Hypokalemia Hypopotassemia [facility] this [facility]* Diagnosis Essential hypertension, benign- Primary documented in this encounter [facility] note* Diagnosis Onset Date Resolution Status Crohns disease chronic Diverticulitis resolved [facility] Work Phone: Evaluation note* Diagnosis Onset Date Resolution Status Diverticulitis resolved C. difficile colitis resolve d Dehydration resolved Failure of outpatient treatment resolved Nausea vomiting and diarrhea resolved [facility] Work Phone: Evaluation note* Diagnosis Onset Date Resolution Status Diverticulitis resolved C. difficile colitis resolve d Dehydration resolved Failure of outpatient treatment resolved Nausea vomiting and diarrhea resolved Clostridioides difficile infection acute Dyslipidemia chronic COVID-19 vaccination declined noneactive Moderate major depression no neactive Carotid artery stenosis none active Floaters in visual field non eactive Acquired hypothyroidism none active Establishing care with new doctor, encounter for noneactive Essential hypertension nonea ctive Chronic back pain noneactive Screening for breast cancer noneactive Abdominal pain noneactive Hematuria acute Urinary frequency acute [facility] Work Phone: Evaluation note* Diagnosis Onset Date Resolution Status Diverticulitis resolved C. difficile colitis resolve d Dehydration resolved Failure of outpatient treatment resolved Nausea vomiting and diarrhea resolved Clostridioides difficile infection acute Dyslipidemia chronic COVID-19 vaccination declined noneactive Moderate major depression no neactive Carotid artery stenosis none active Floaters in visual field non eactive Acquired hypothyroidism none active Establishing care with new doctor, encounter for noneactive Essential hypertension nonea ctive Chronic back pain noneactive Screening for breast cancer noneactive Abdominal pain noneactive Hematuria acute Urinary frequency resolved Moderate major depression no neactive Chronic pain noneactive Moderate anxiety noneactive Essential hypertension nonea ctive Right flank pain noneactive Abdominal pain noneactive [facility] Work Phone: Evaluation note* Diagnosis Encounter for screening mammogram for breast cancer [facility] Diagnosis Onset Date Resolution Status Diverticulitis resolved C. difficile colitis resolve d Dehydration resolved Failure of outpatient treatment resolved Nausea vomiting and diarrhea resolved Clostridioides difficile infection acute Dyslipidemia chronic COVID-19 vaccination declined noneactive Moderate major depression no neactive Carotid artery stenosis none active Floaters in visual field non eactive Acquired hypothyroidism none active Establishing care with new doctor, encounter for noneactive Essential hypertension nonea ctive Chronic back pain noneactive Screening for breast cancer noneactive Abdominal pain noneactive Urinary frequency resolved Moderate major depression no neactive Chronic pain noneactive Moderate anxiety noneactive Essential hypertension nonea ctive Right flank pain noneactive Abdominal pain noneactive Dyslipidemia chronic Moderate major depression no neactive Acquired hypothyroidism none active Chronic pain noneactive Blocked tear duct noneactive Moderate anxiety noneactive Essential hypertension nonea ctive Abdominal pain noneactive Preoperative cardiovascular examination acute Essential (primary) hypertension chronic [facility] Work Phone: Evaluation note* Diagnosis Onset Date Resolution Status Crohns disease chronic Crohns disease chronic Dyslipidemia chronic Moderate major depression no neactive Acquired hypothyroidism none active Chronic constipation noneact jacky Chronic pain noneactive Moderate anxiety noneactive Essential hypertension nonea ctive Crohns disease chronic Acute upper respiratory infection acute Acquired hypothyroidism none active Chronic constipation noneact jacky Leukocytosis noneactive Prediabetes noneactive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 current management. (3) Essential hypertension: Plan: Blood pressure shows good control today. Will continue current management for now and monitor. She was encouraged to continue to monitor her blood pressure at home. Discussed monitoring salt intake. (4) Dyslipidemia: Status: Chronic Plan: Discussed diet and exercise. The patient is taking her cholesterol medications as prescribed. Will continue current management and monitor. Most recent cholesterol showed fair control. (5) Acquired hypothyroidism: Plan: Stable. Continue current management. Discussed the importance of taking on an empty stomach first thing in the morning. Last TSH was in normal range. (6) Crohns disease: Status: Chronic Qualifiers: Digestive disease complication type: without complication Gastrointestinal tract location: unspecified location Qualified Code(s): K50.90- Crohn's disease, unspecified, without complications Plan: Patient follows closely with GI and continues to do well on the stelara. Will continue to follow up on findings and recommendations. The patient reports she is feeling much better than she had been. (7) Chronic constipation: Plan: As above. Patient reports her bowels do still struggle and she is taking linzess and a stool softener for that. She is still taking her medication as prescribed as well as a fiber supplement which helps. Will continue to monitor. (8) LINDY on CPAP: Status: Acute Plan: The patient hasn't been wearing her CPAP. She reports it was causing problems with pain behind her eye and feels that her pressure is too high. She would like to get a repeat sleep study, which was last done about 5 years ago. Will order and make further recommendations at that time. STOP-BANG Assessment: 1. Do you snore? yes 2. Are you frequently tired during the day? no 3. Have you been observed gasping or choking while asleep? no 4. Do you have high blood pressure? yes 5. BMI - greater than 35kg/m2? no 6. Age - over 50 years old? yes 7. Neck Circumference - greater than 37 cm for females or 40 cm for males? no 8. Gender - male? no Total STOP-BANG score = 3 which indicates increased risk for obstructive sleep apnea (yes to 3 or more questions = high risk of sleep apnea). (9) Immunization due: Plan: The patient was given a flu shot in the office today, which she tolerated well. The patient is here for a follow up. Plan as above. Medications reviewed with the patient. Routine follow up scheduled. The patient was instructed to call with any concerns or questions before then and they were in agreement. I spent a total of 37 minutes on the date of the service which included preparing to see the patient, [id number] patient care, completing clinical documentation, obtaining and/or reviewing separately obtained history. This excludes separately reportable services. Orders: Orders Influenza Immunization Today Dr. Andreas Buenrostro MD Z23 - Encounter for immunization Polysomnography with PAP Today Dr. Andreas Buenrostro MD G47.33 - Obstructive sleepapnea (adult) (pediatric) Medications: Resumed loratadine 10 mg PO DAILY PRN [address] Andreas Buenrostro MD loratadine 10 mg PO DAILY PRN 90 tabs 1RF Inflammation Kandi Hernandes, INCOME TAX ADJUSTER-C Plan Details Follow Up: 3 Months Clinical Quality Measures Falls Risk Screening/Assistive Devices Have you fallen in the past year?: No 07/26/25 1231 <Electronically signed by Andreas meehan MD> Date _ Andreas Buenrostro MD Cosigner Signature: Date (if applicable) CC: ~ [facility] [employer] Work Phone: Reason for referral (narrative)* Diagnostic Procedure Only (Routine) - Pending Review Specialty Diagnoses / Procedures Referred By Elias vaughan Referred To Contact [facility] Diagnoses Encounter for screening mammogram for breast cancer Procedures RADHA SCREENING SCREENING MAMMOGRAPHY BI 2-VIEW BREAST INC Mari Mayogra APRN.CNP [address] [place] [address] [facility] [address] [place] [address] Referral ID Status Reason Start Date Expiration Date Visits Requested Visits Authorized [id number] Pending Review Auto-Generat ed Referral 01/22/2022 02/21/2023 [address] [facility] for referral (narrative)* Diagnostic Procedure Only (Routine) - Authorized Specialty Diagnoses / Procedures Referred By Elias vaughan Referred To Contact [facility] Diagnoses Encounter for screening mammogram for breast cancer Procedures RADHA SCREENING SCREENING MAMMOGRAPHY BI 2-VIEW BREAST INC Mari Mayorga APRN.CNP [address] [place] [address] [facility] [address] [place] [address] Referral ID Status Reason Start Date Expiration Date Visits Requested Visits Authorized [id number] Authorized Auto-Generat ed Referral 01/22/2022 02/21/2023 [address] [facility] for referral (narrative)* Diagnostic Procedure Only (Routine) - Closed Specialty Diagnoses / Procedures Referred By Contac t Referred To Contact BR [facility]ING Diagnoses Abnormal mammogram Procedures US BREAST LTD LT US BREAST UNI REAL TIME WITH IMAGE LIMITED Podlogterri, JOSE Osuna [address] [place] [address] [facility] [address] [place] [address] Referral ID Status Reason Start Date Expiration Date V isits Requested Visits Authorized [id number] Closed Auto-Generate d Referral 01/23/2022 02/22/2023 [address] [facility] for referral (narrative)* Diagnostic Procedure Only (Routine) - Closed Specialty Diagnoses / Procedures Referred By Contac t Referred To Contact MOLECULAR & FUNCTIONAL IMAGING Diagnoses Early satiety Nausea Procedures NM GASTRIC EMPTYING SOLID GASTRIC EMPTYING STUDY Jovana Valladares PA-C [address] [place] [address] Molecular & Functional Imaging [address] [place] [address] Referral ID Status Reason Start Date Expiration Date V isits Requested Visits Authorized [id number] Closed Auto-Generate d Referral 03/11/2022 04/10/2023 [address] [facility] for referral (narrative)* Outpatient Procedure (Routine) - Closed Specialty Diagnoses / Procedures Referred By Contac t Referred To Contact [facility] Diagnoses Crohn's disease involving terminal ileum (HCC) Sigmoid diverticulitis Procedures COLONOSCOPY DIAGNOSTIC COLONOSCOPY FLX DX W/COLLJ SPEC WHEN PFRMD Jovana Valladares PA-C [address] [place] [address] [facility] [address] [place] [address] Referral ID Status Reason Start Date Expiration Date V isits Requested Visits Authorized [id number] Closed Auto-Generate d Referral 03/11/2022 03/11/2023 [address] [facility] for referral (narrative)* Diagnostic Procedure Only (Routine) - Authorized Specialty Diagnoses / Procedures Referred By Contac t Referred To Contact XR IMAGING Diagnoses Periumbilical abdominal pain Acute constipation Procedures XR ABDOMEN 1V SUPINE RADIOLOGIC EXAM ABDOMEN 1 VIEW Maria Del Carmen Leong MD [facility] [place] [address] Xr Imaging Referral ID Status Reason Start Date Expiration Date Visits Requested Visits Authorized [id number] Authorized Auto-Generat ed Referral 06/15/2022 07/15/2023 [address] [facility] for referral (narrative)* Diagnostic Procedure Only (Routine) - Closed Specialty Diagnoses / Procedures Referred By Contac t Referred To Contact XR IMAGING Diagnoses Periumbilical abdominal pain Acute constipation Procedures XR ABDOMEN 1V SUPINE RADIOLOGIC EXAM ABDOMEN 1 VIEW Maria Del Carmen Leong MD [address] [place] [address] Xr Imaging Referral ID Status Reason Start Date Expiration Date V isits Requested Visits Authorized [id number] Closed Auto-Generate d Referral 06/15/2022 07/15/2023 [address] [facility] for referral (narrative)* Diagnostic Procedure Only (Routine) - Pending Review Specialty Diagnoses / Procedures Referred By Contac t Referred To Contact [facility] Diagnoses Encounter for screening mammogram for breast cancer Procedures RADHA SCREENING SCREENING MAMMOGRAPHY BI 2-VIEW BREAST INC CAD Maria Del Carmen Leong MD [address] [place] [address] [facility] [address] [place] [address] Referral ID Status Reason Start Date Expiration Date Visits Requested Visits Authorized [id number] Pending Review Auto-Generat ed Referral 03/05/2023 04/03/2024 [address] [facility] for referral (narrative)* Diagnostic Procedure Only (Routine) - Pending Review Specialty Diagnoses / Procedures Referred By Contac t Referred To Contact [facility] Diagnoses Encounter for screening mammogram for breast cancer Procedures RADHA SCREENING SCREENING MAMMOGRAPHY BI 2-VIEW BREAST INC CAD Maria Del Carmen Leong MD [address] [place] [address] [facility] [address] [place] [address] Referral ID Status Reason Start Date Expiration Date Visits Requested Visits Authorized [id number] Pending Review Auto-Generat ed Referral 02/25/2024 03/26/2025 [address] [facility] for referral (narrative)No reason for referral information availableDayton [facility] Services Work Phone: [facility] Narrative* Diagnostic Procedure Only (Routine) - Authorized Specialty Diagnoses / Procedures Referred By Contac t Referred To Contact [facility] Diagnoses Encounter for screening mammogram for breast cancer Procedures RADHA SCREENING SCREENING MAMMOGRAPHY BI 2-VIEW BREAST INC CAD Mari Turner, GEORGE.REDIPPER [address] [place] [address] [facility] [address] [place] [address] Referral ID Status Reason Start Date Expiration Date Visits Requested Visits Authorized [id number] Authorized Auto-Generat ed Referral 01/22/2022 02/21/2023 [address] [facility] for visit Narrative* Diagnostic Procedure Only (Routine) - Closed Specialty Diagnoses / Procedures Referred By Contac t Referred To Contact MOLECULAR & FUNCTIONAL IMAGING Diagnoses Early satiety Nausea Procedures NM GASTRIC EMPTYING SOLID GASTRIC EMPTYING STUDY Jovana Valladares PA-C [address] [place] [address] Molecular & Functional Imaging [address] [place] [address] Referral ID Status Reason Start Date Expiration Date V isits Requested Visits Authorized [id number] Closed Auto-Generate d Referral 03/11/2022 04/10/2023 [address] [facility] for visit Narrative* Outpatient Procedure (Routine) - Closed Specialty Diagnoses / Procedures Referred By Contac t Referred To Contact [facility] Diagnoses Crohn's disease involving terminal ileum (HCC) Sigmoid diverticulitis Procedures COLONOSCOPY DIAGNOSTIC COLONOSCOPY FLX DX W/COLLJ SPEC WHEN PFRMD Jovana Valladares PA-C [address] [facility] [place] [address] [facility] [address] [place] [address] Referral ID Status Reason Start Date Expiration Date V isits Requested Visits Authorized [id number] Closed Auto-Generate d Referral 03/11/2022 03/11/2023 [address] [facility] for visit Narrative* Diagnostic Procedure Only (Routine) - Closed Specialty Diagnoses / Procedures Referred By Contac t Referred To Contact XR IMAGING Diagnoses Periumbilical abdominal pain Acute constipation Procedures XR ABDOMEN 1V SUPINE RADIOLOGIC EXAM ABDOMEN 1 VIEW Maria Del Carmen Leong MD [address] [place] [address] Xr Imaging Referral ID Status Reason Start Date Expiration Date V isits Requested Visits Authorized [id number] Closed Auto-Generate d Referral 06/15/2022 07/15/2023 [address] [facility] for visit Narrative* Diagnostic Procedure Only (Routine) - Closed Specialty Diagnoses / Procedures Referred By Contac t Referred To Contact XR IMAGING Diagnoses Pain in both knees, unspecified chronicity Procedures XR KNEE GENERAL 4V AP BOTH/PA BOTH/LAT/MERC BILATERAL RADIOLOGIC EXAM KNEE COMPLETE 4/MORE VIEWS Kelin Conrad PA-C [address] [place] [address] Phone: tel: fax: [place] [address] Referral ID Status Reason Start Date Expiration Date V isits Requested Visits Authorized [id number] Closed Auto-Generate d Referral 04/21/2025 05/21/2026 1 1 [facility] Summary Purpose Family History No Family History Records Found Relationship Condition Age at Onset Recorded Date/T alejandra Unknown Family History?Heart Disease Unknown November 24, 2018 2:37pm Family History?Heart Disease Unknown November 24, 2018 2:37pm Relationship Condition Age at Onset Recorded Date/T alejandra Unknown Family History?Heart Disease Unknown November 24, 2018 3:37pm Family History?Heart Disease Unknown November 24, 2018 3:37pm Relationship Condition Age at Onset Recorded Date/T alejandra Not Specified Malignant neoplasm of colon Unknown Anemia Unknown grandmother Disorder of intestine Unknown Myocardial infarction Unknown Hypertension Unknown aunt Disorder of intestine Unknown Malignant neoplasm of ovary Unknown mother Diabetes mellitus Unknown High blood cholesterol Unknown father Diabetes mellitus Unknown Cardiac disease Unknown Disorder of thyroid Unknown father Myocardial infarction Unknown Relationship Condition Age at Onset Recorded Date/T alejandra Not Specified Malignant neoplasm of colon Unknown Anemia Unknown grandmother Disorder of intestine Unknown Myocardial infarction Unknown Hypertension Unknown aunt Disorder of intestine Unknown Malignant neoplasm of ovary Unknown mother Diabetes mellitus Unknown High blood cholesterol Unknown father Diabetes mellitus Unknown Cardiac disease Unknown Disorder of thyroid Unknown grandmother Malignant neoplasm Unknown Relationship Condition Age at Onset Recorded Date/T alejandra Not Specified Malignant neoplasm of colon Unknown Anemia Unknown grandmother Disorder of intestine Unknown Myocardial infarction Unknown Hypertension Unknown aunt Disorder of intestine Unknown Malignant neoplasm of ovary Unknown mother Diabetes mellitus Unknown High blood cholesterol Unknown Cerebrovascular accident (CVA) Unknown father Diabetes mellitus Unknown Cardiac disease Unknown Disorder of thyroid Unknown grandmother Malignant neoplasm Unknown Relationship Condition Age at Onset Recorded Date/T alejandra Not Specified Malignant neoplasm of colon Unknown Anemia Unknown grandmother Disorder of intestine Unknown Myocardial infarction Unknown Hypertension Unknown aunt Disorder of intestine Unknown Malignant neoplasm of ovary Unknown mother Diabetes mellitus Unknown High blood cholesterol Unknown Cerebrovascular accident (CVA) Unknown father Diabetes mellitus Unknown Cardiac disease Unknown Disorder of thyroid Unknown grandmother Malignant neoplasm Unknown brother Cardiac disease Unknown Advance Directives No Advanced Directives Records FoundDocuments on File Type Date 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 Advance Directive(s) 05/25/2020 10:54 PM Advance Directive(s) 05/22/2020 7:15 AM Advance Directive(s) 03/09/2020 8:30 AM Advance Directive(s) 01/12/2020 4:12 PM Advance Directive(s) 08/07/2017 2:56 PM Advance Directive(s) 02/25/2017 11:07 AM Advance Directive(s) 02/21/2017 9:21 AM Advance Directive(s) 08/15/2016 8:34 AM Documents on File Type Date 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 Advance Directive(s) 05/25/2020 10:54 PM Advance Directive(s) 05/22/2020 7:15 AM Advance Directive(s) 03/09/2020 8:30 AM Advance Directive(s) 01/12/2020 4:12 PM Advance Directive(s) 08/07/2017 2:56 PM Advance Directive(s) 02/25/2017 11:07 AM Advance Directive(s) 02/21/2017 9:21 AM Advance Directive(s) 08/15/2016 8:34 AM Documents on File Type Date 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 Advance Directive(s) 02/25/2022 11:24 PM Advance Directive(s) 05/25/2020 10:54 PM Advance Directive(s) 05/22/2020 7:15 AM Advance Directive(s) 03/09/2020 8:30 AM Advance Directive(s) 01/12/2020 4:12 PM Advance Directive(s) 08/07/2017 2:56 PM Advance Directive(s) 02/25/2017 11:07 AM Advance Directive(s) 02/21/2017 9:21 AM Advance Directive(s) 08/15/2016 8:34 AM Documents on File Type Date 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 Advance Directive(s) 02/25/2022 11:24 PM Advance Directive(s) 05/25/2020 10:54 PM Advance Directive(s) 05/22/2020 7:15 AM Advance Directive(s) 03/09/2020 8:30 AM Advance Directive(s) 01/12/2020 4:12 PM Advance Directive(s) 08/07/2017 2:56 PM Advance Directive(s) 02/25/2017 11:07 AM Advance Directive(s) 02/21/2017 9:21 AM Advance Directive(s) 08/15/2016 8:34 AM Documents on File Type Date 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 Advance Directive(s) 05/09/2022 7:13 AM Advance Directive(s) 02/25/2022 11:24 PM Advance Directive(s) 05/25/2020 10:54 PM Advance Directive(s) 05/22/2020 7:15 AM Advance Directive(s) 03/09/2020 8:30 AM Advance Directive(s) 01/12/2020 4:12 PM Advance Directive(s) 08/07/2017 2:56 PM Advance Directive(s) 02/25/2017 11:07 AM Advance Directive(s) 02/21/2017 9:21 AM Advance Directive(s) 08/15/2016 8:34 AM Documents on File Type Date 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 Advance Directive(s) 05/09/2022 7:13 AM Advance Directive(s) 02/25/2022 11:24 PM Advance Directive(s) 05/25/2020 10:54 PM Advance Directive(s) 05/22/2020 7:15 AM Advance Directive(s) 03/09/2020 8:30 AM Advance Directive(s) 01/12/2020 4:12 PM Advance Directive(s) 08/07/2017 2:56 PM Advance Directive(s) 02/25/2017 11:07 AM Advance Directive(s) 02/21/2017 9:21 AM Advance Directive(s) 08/15/2016 8:34 AM Advance Directive Response Recorded Date/ Time Advance Directives No November 24, 2018 2:45pm Living Will No December 28, 2022 8:19am Power of Jig And Fixture Builder Apprentice No December 28 8:19am Advance Directive Response Recorded Date/ Time Advance Directives No November 24, 2018 3:45pm Living Will No January 10, 2023 7:38pm Power of Jig And Fixture Builder Apprentice No January 10 7:38pm Advance Directive Response Recorded Date/ Time Advance Directives No November 24, 2018 3:45pm Living Will No January 14, 2023 9:49pm Power of Jig And Fixture Builder Apprentice No January 14 9:49pm Advance Directive Response Recorded Date/ Time Advance Directives No November 24, 2018 3:45pm Living Will No January 20, 2023 9:24pm Power of Jig And Fixture Builder Apprentice No January 20 9:24pm Advance Directive Response Recorded Date/ Time Advance Directives No November 24, 2018 3:45pm Living Will No February 03, 2023 5:59pm Power of Jig And Fixture Builder Apprentice No February 03 5:59pm Advance Directive Response Recorded Date/ Time Advance Directives No November 24, 2018 3:45pm Living Will No February 11, 2023 5:43am Power of Jig And Fixture Builder Apprentice No February 11 5:43am Advance Directive Response Recorded Date/ Time Advance Directives No November 24, 2018 3:45pm Living Will No March 28, 2023 2 :22pm Power of Jig And Fixture Builder Apprentice No March 28, 2023 2:22pm Advance Directive Response Recorded Date/ Time Advance Directives No November 24, 2018 3:45pm Living Will No July 30 12:54pm Power of Jig And Fixture Builder Apprentice No July 30 023 12:54pm Advance Directive Response Recorded Date/ Time Advance Directives No November 24, 2018 2:45pm Living Will No July 30 3 11:54am Power of Jig And Fixture Builder Apprentice No July 30, 023 11:54am Advance Directive Response Recorded Date/ Time Living Will No March 31, 2024 1 2:02pm Do you have a Healthcare Power of Jig And Fixture Builder Apprentice? No March 31, 2024 12:02pm Advance Directives No September 8:52am Advance Directive Response Recorded Date/ Time Living Will No March 31, 2024 1 2:02pm Do you have a Healthcare Power of Jig And Fixture Builder Apprentice? No March 31, 2024 12:02pm Do you have a Healthcare Power of Jig And Fixture Builder Apprentice? No June 13, 2025 1:30pm Advance Directives No September 8:52am Advance Directive Response Recorded Date/ Time Do you have a Healthcare Power of Jig And Fixture Builder Apprentice? No June 13, 2025 1:30pm Advance Directives No September 8:52am Reason for Referral Specialty Diagnoses / Procedures Referred By Contac t Referred To Contact Gastroenterology Diagnoses Crohn's disease involving terminal ileum (HCC) Procedures CONSULT TO GASTROENTEROLOGY OFFICE/OUTPATIENT [facility] 60-74 MINUTES Maria Del Carmen Leong MD [address] [place] [address] Referral ID Status Reason Start Date Expiration Date Visits Requested Visits Authorized [id number] Authorized PCP Requested Referral 03/06/2022 03/06/2023 1 1 Specialty Diagnoses / Procedures Referred By Contac t Referred To Contact Dermatology Diagnoses Crohn's disease involving terminal ileum (HCC) Skin exam, screening for cancer Procedures CONSULT TO DERMATOLOGY OFFICE/OUTPATIENT [facility] 60-74 MINUTES Jovana Valladares PA-C [address] [place] [address] Referral ID Status Reason Start Date Expiration Date Visits Requested Visits Authorized [id number] Authorized PCP Requested Referral 03/11/2022 03/11/2023 1 1 Specialty Diagnoses / Procedures Referred By Contac t Referred To Contact MOLECULAR & FUNCTIONAL IMAGING Diagnoses Early satiety Nausea Procedures NM GASTRIC EMPTYING SOLID GASTRIC EMPTYING STUDY Jovana Valladares PA-C [address] [place] [address] Molecular & Functional Imaging [address] [place] [address] Referral ID Status Reason Start Date Expiration Date Visits Requested Visits Authorized [id number] Pending Review Auto-Generat ed Referral 03/11/2022 04/10/2023 1 1 Specialty Diagnoses / Procedures Referred By Contac t Referred To Contact [facility] Diagnoses Crohn's disease involving terminal ileum (HCC) Sigmoid diverticulitis Procedures COLONOSCOPY DIAGNOSTIC COLONOSCOPY FLX DX W/COLLJ SPEC WHEN PFRMD Jovana Valladares PA-C [address] [place] [address] [facility] [address] [place] [address] Referral ID Status Reason Start Date Expiration Date Visits Requested Visits Authorized [id number] Pending Review Auto-Generat ed Referral 03/11/2022 03/11/2023 1 1 Specialty Diagnoses / Procedures Referred By Contac t Referred To Contact CT IMAGING Diagnoses Left lower quadrant abdominal pain RLQ abdominal pain Pelvic pain Procedures CT ABD/PEL W IVCON CT ABD & PELVIS W/CONTRAST Liz Bean, DIRECTOR REGULATORY AFFAIRS.REDIPPER [address] [place] [address] Ct Imaging Referral ID Status Reason Start Date Expiration Date Visits Requested Visits Authorized [id number] Authorized Auto-Generat ed Referral 04/22/2022 06/21/2022 2 2 Referral ID Status Reason Start Date Expiration Date V isits Requested Visits Authorized [id number] Closed Auto-Generate d Referral 04/22/2022 06/21/2022 2 2 Specialty Diagnoses / Procedures Referred By Elias vaughan Referred To Contact Gastroenterology Diagnoses Crohn's disease involving terminal ileum (HCC) Procedures CONSULT TO GASTROENTEROLOGY OFFICE/OUTPATIENT [facility] 60-74 MINUTES BashirlogThao murray APRN.CNP [address] [place] [address] Referral ID Status Reason Start Date Expiration Date Visits Requested Visits Authorized [id number] Authorized PCP Requested Referral 11/04/2022 11/04/2023 1 1 Medications Administered Section Inactive Administered Medications - up to 3 most recent administrations Medication Order MAR Action Action Date Dose Rate Site lactated ringers iv infusion 5-30 mL/hr, INTRAVENOUS, CONTINUOUS, Starting on Marilou 05/09/22 at 0900, Until Marilou 05/09/22 at 1008, Preprocedure New Bag/Syringe/Bottle 05/09/2022 8:42 AM EDT 30 mL/hr 30 mL/hr simethicone 20-40 mg oral liquid (MYLICON) 20-40 mg, OTHER, DIRECTED, Starting on Marilou 05/09/22 at 1000, Until Marilou 05/09/22 at 1359, DOSING DIRECTED BY PHYSICIAN FOR PROCEDURAL SEDATION ONLY Shake Well, Intraprocedure Given 05/09/2022 10:00 AM EDT 20 mg Chief Complaint and Reason for Visit Chief Complaint Consult INT LABS abd pain Reason for Visit Crohns disease Diverticulitis Chief Complaint Consult INT LABS abd pain C DIFF, CROH'S DISEASE FLARE UP C DIFF, CROH'S DISEASE FLARE UP C DIFF, CROH'S DISEASE FLARE UP C DIFF, CROH'S DISEASE FLARE UP C DIFF, CROH'S DISEASE FLARE UP C DIFF, CROH'S DISEASE FLARE UP C DIFF, CROH'S DISEASE FLARE UP C DIFF, CROH'S DISEASE FLARE UP C DIFF, CROH'S DISEASE FLARE UP C DIFF, CROH'S DISEASE FLARE UP C DIFF, CROH'S DISEASE FLARE UP C DIFF, CROH'S DISEASE FLARE UP ABD PAIN Reason for Visit Diverticulitis C. difficile colitis Dehydration Failure of outpatient treatment Nausea vomiting and diarrhea Chief Complaint Consult INT LABS abd pain C DIFF, CROH'S DISEASE FLARE UP C DIFF, CROH'S DISEASE FLARE UP C DIFF, CROH'S DISEASE FLARE UP C DIFF, CROH'S DISEASE FLARE UP C DIFF, CROH'S DISEASE FLARE UP C DIFF, CROH'S DISEASE FLARE UP C DIFF, CROH'S DISEASE FLARE UP C DIFF, CROH'S DISEASE FLARE UP C DIFF, CROH'S DISEASE FLARE UP C DIFF, CROH'S DISEASE FLARE UP C DIFF, CROH'S DISEASE FLARE UP C DIFF, CROH'S DISEASE FLARE UP ABD PAIN Amb Documentation abd pain Reason for Visit Diverticulitis C. 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 EST CARE - PPW SENT Urinary tract infection Reason for Visit Diverticulitis C. difficile colitis Dehydration Failure of outpatient treatment Nausea vomiting and diarrhea Clostridioides difficile infection Dyslipidemia COVID-19 vaccination declined Moderate major depression Carotid artery stenosis Floaters in visual field Acquired hypothyroidism Establishing care with new doctor, encounter for Essential hypertension Chronic back pain Screening for breast cancer Abdominal pain Hematuria Urinary frequency Chief Complaint Consult INT LABS abd pain C DIFF, CROH'S DISEASE FLARE UP C DIFF, CROH'S DISEASE FLARE UP C DIFF, CROH'S DISEASE FLARE UP C DIFF, CROH'S DISEASE FLARE UP C DIFF, CROH'S DISEASE FLARE UP C DIFF, CROH'S DISEASE FLARE UP C DIFF, CROH'S DISEASE FLARE UP C DIFF, CROH'S DISEASE FLARE UP C DIFF, CROH'S DISEASE FLARE UP C DIFF, CROH'S DISEASE FLARE UP C DIFF, CROH'S DISEASE FLARE UP C DIFF, CROH'S DISEASE FLARE UP ABD PAIN Amb Documentation abd pain H FU ABD PAIN INCOME TAX ADJUSTER. EST CARE - PPW SENT Urinary tract infection BILAT CAROTID BRUITS Reason for Visit Diverticulitis C. difficile colitis Dehydration Failure of outpatient treatment Nausea vomiting and diarrhea Clostridioides difficile infection Dyslipidemia COVID-19 vaccination declined Moderate major depression Carotid artery stenosis Floaters in visual field Acquired hypothyroidism Establishing care with new doctor, encounter for Essential hypertension Chronic back pain Screening for breast cancer Abdominal pain Hematuria Urinary frequency Chief Complaint Consult INT LABS abd pain C DIFF, CROH'S DISEASE FLARE UP C DIFF, CROH'S DISEASE FLARE UP C DIFF, CROH'S DISEASE FLARE UP C DIFF, CROH'S DISEASE FLARE UP C DIFF, CROH'S DISEASE FLARE UP C DIFF, CROH'S DISEASE FLARE UP C DIFF, CROH'S DISEASE FLARE UP C DIFF, CROH'S DISEASE FLARE UP C DIFF, CROH'S DISEASE FLARE UP C DIFF, CROH'S DISEASE FLARE UP C DIFF, CROH'S DISEASE FLARE UP C DIFF, CROH'S DISEASE FLARE UP ABD PAIN Amb Documentation abd pain H FU ABD PAIN INCOME TAX ADJUSTER. EST CARE - PPW SENT Urinary tract infection BILAT CAROTID BRUITS SCREENING CHEST PAIN Reason for Visit Diverticulitis C. difficile colitis Dehydration Failure of outpatient treatment Nausea vomiting and diarrhea Clostridioides difficile infection Dyslipidemia COVID-19 vaccination declined Moderate major depression Carotid artery stenosis Floaters in visual field Acquired hypothyroidism Establishing care with new doctor, encounter for Essential hypertension Chronic back pain Screening for breast cancer Abdominal pain Hematuria Urinary frequency Chief Complaint Consult INT LABS abd pain C DIFF, CROH'S DISEASE FLARE UP C DIFF, CROH'S DISEASE FLARE UP C DIFF, CROH'S DISEASE FLARE UP C DIFF, CROH'S DISEASE FLARE UP C DIFF, CROH'S DISEASE FLARE UP C DIFF, CROH'S DISEASE FLARE UP C DIFF, CROH'S DISEASE FLARE UP C DIFF, CROH'S DISEASE FLARE UP C DIFF, CROH'S DISEASE FLARE UP C DIFF, CROH'S DISEASE FLARE UP C DIFF, CROH'S DISEASE FLARE UP C DIFF, CROH'S DISEASE FLARE UP ABD PAIN Amb Documentation abd pain H FU ABD PAIN INCOME TAX ADJUSTER. EST CARE - PPW SENT Urinary tract infection BILAT CAROTID BRUITS SCREENING CHEST PAIN cap endo Reason for Visit Diverticulitis C. difficile colitis Dehydration Failure of outpatient treatment Nausea vomiting and diarrhea Clostridioides difficile infection Dyslipidemia COVID-19 vaccination declined Moderate major depression Carotid artery stenosis Floaters in visual field Acquired hypothyroidism Establishing care with new doctor, encounter for Essential hypertension Chronic back pain Screening for breast cancer Abdominal pain Hematuria Urinary frequency Chief Complaint Consult INT LABS abd pain C DIFF, CROH'S DISEASE FLARE UP C DIFF, CROH'S DISEASE FLARE UP C DIFF, CROH'S DISEASE FLARE UP C DIFF, CROH'S DISEASE FLARE UP C DIFF, CROH'S DISEASE FLARE UP C DIFF, CROH'S DISEASE FLARE UP C DIFF, CROH'S DISEASE FLARE UP C DIFF, CROH'S DISEASE FLARE UP C DIFF, CROH'S DISEASE FLARE UP C DIFF, CROH'S DISEASE FLARE UP C DIFF, CROH'S DISEASE FLARE UP C DIFF, CROH'S DISEASE FLARE UP ABD PAIN Amb Documentation abd pain H FU ABD PAIN INCOME TAX ADJUSTER. EST CARE - PPW SENT Urinary tract infection BILAT CAROTID BRUITS SCREENING CHEST PAIN cap endo GENERAL [facility] er fu Reason for Visit Diverticulitis C. difficile colitis Dehydration Failure of outpatient treatment Nausea vomiting and diarrhea Clostridioides difficile infection Dyslipidemia COVID-19 vaccination declined Moderate major depression Carotid artery stenosis Floaters in visual field Acquired hypothyroidism Establishing care with new doctor, encounter for Essential hypertension Chronic back pain Screening for breast cancer Abdominal pain Hematuria Urinary frequency Moderate major depression Chronic pain Moderate anxiety Essential hypertension Right flank pain Abdominal pain Chief Complaint Consult INT LABS abd pain C DIFF, CROH'S DISEASE FLARE UP C DIFF, CROH'S DISEASE FLARE UP C DIFF, CROH'S DISEASE FLARE UP C DIFF, CROH'S DISEASE FLARE UP C DIFF, CROH'S DISEASE FLARE UP C DIFF, CROH'S DISEASE FLARE UP C DIFF, CROH'S DISEASE FLARE UP C DIFF, CROH'S DISEASE FLARE UP C DIFF, CROH'S DISEASE FLARE UP C DIFF, CROH'S DISEASE FLARE UP C DIFF, CROH'S DISEASE FLARE UP C DIFF, CROH'S DISEASE FLARE UP ABD PAIN Amb Documentation abd pain H FU ABD PAIN INCOME TAX ADJUSTER. EST CARE - PPW SENT Urinary tract infection BILAT CAROTID BRUITS SCREENING CHEST PAIN cap endo GENERAL wc er fu ABD PAIN XRAY TB TEST REQUIRED FOR MEDICATION START TB READ 6 wk fu Amb Documentation ABN EKG / SURG CLEARANCE (PAT) Reason for Visit Diverticulitis C. difficile colitis Dehydration Failure of outpatient treatment Nausea vomiting and diarrhea Clostridioides difficile infection Dyslipidemia COVID-19 vaccination declined Moderate major depression Carotid artery stenosis Floaters in visual field Acquired hypothyroidism Establishing care with new doctor, encounter for Essential hypertension Chronic back pain Screening for breast cancer Abdominal pain Urinary frequency Moderate major depression Chronic pain Moderate anxiety Essential hypertension Right flank pain Abdominal pain Dyslipidemia Moderate major depression Acquired hypothyroidism Chronic pain Blocked tear duct Moderate anxiety Essential hypertension Abdominal pain Preoperative cardiovascular examination Essential (primary) hypertension Chief Complaint 3 MO FU STELARA BP CHK/FU 4 MO FU SORE THROAT, COUGH INT LABS CONSTIPATION CELL COUNT - DR. BULL Reason for Visit Crohns disease Crohns disease Dyslipidemia Moderate major depression Acquired hypothyroidism Chronic constipation Chronic pain Moderate anxiety Essential hypertension Crohns disease Acute upper respiratory infection Acquired hypothyroidism Chronic constipation Leukocytosis Prediabetes Chief Complaint SORE THROAT, COUGH INT LABS CONSTIPATION CELL COUNT - DR. BULL 4 MO FU 6 M FU Reason for Visit Acute upper respirat ory infection Acquired hypothyroidism Chronic constipation Leukocytosis Prediabetes Crohns disease Crohns disease Dyslipidemia Moderate major depression Acquired hypothyroidism Chronic constipation Chronic pain Urinary frequency Moderate anxiety Essential hypertension Chief Complaint INT LABS CONSTIPATION CELL COUNT - DR. BULL 4 MO FU 6 M FU 5 MO FU Reason for Visit Acquired hypothyroid ism Chronic constipation Leukocytosis Prediabetes Crohns disease Clostridioides difficile infection Crohns disease Dyslipidemia Moderate major depression Acquired hypothyroidism Chronic constipation Chronic pain Urinary frequency Moderate anxiety Essential hypertension Crohns disease Clostridioides difficile infection Chief Complaint 6 M FU 5 MO FU 3 M FU Reason for Visit Crohns disease Dyslipidemia Moderate major depression Acquired hypothyroidism Chronic constipation Chronic pain Urinary frequency Moderate anxiety Essential hypertension Crohns disease Clostridioides difficile infection Crohns disease Dyslipidemia Mid back pain Acquired hypothyroidism Chronic constipation Microscopic hematuria Essential hypertension Cold sweat Anxiety and depression Screening for breast cancer Chief Complaint 5 MO FU 3 M FU 5 M FU SCREENING Reason for Visit Crohns disease Clostridioides difficile infection Crohns disease Dyslipidemia Mid back pain Acquired hypothyroidism Chronic constipation Microscopic hematuria Essential hypertension Cold sweat Anxiety and depression Screening for breast cancer Crohns disease Clostridioides difficile infection Chief Complaint Admit Date MED DISCUSSION January 25, 2025 11:2 0am 6 M FU February 14, 2025 7:3 1am E ORDERS February 14, 2025 8:1 6am INT LAB AND RAD April 08, 2025 8:25 am STRESS AND ANXIETY April 11, 2025 12:5 2pm Reason for Visit Admit Date Crohns disease January 25, 2025 11:2 0am Dyslipidemia January 25, 2025 11:2 0am Acquired hypothyroidism January 25, 2025 11:20am Chronic constipation January 25, 2025 11: 20am Osteoporosis January 25, 2025 11:2 0am Essential hypertension January 25, 2025 1 1:20am Anxiety and depression January 25, 2025 1 1:20am Crohns disease February 14, 2025 7:3 1am Clostridioides difficile infection February 14, 2025 7:31am Anxiety and depression April 11, 2025 1 2:52pm Chief Complaint Admit Date 6 M FU February 14, 2025 7:3 1am E ORDERS February 14, 2025 8:1 6am INT LAB AND RAD April 08, 2025 8:25 am STRESS AND ANXIETY April 11, 2025 12:5 2pm ACUTE-PAIN BETWEEN SHOULDER BLADES Augus 2024 11:33am Reason for Visit Admit Date Crohns disease February 14, 2025 7:3 1am Clostridioides difficile infection February 14, 2025 7:31am Anxiety and depression April 11, 2025 1 2:52pm Shoulder blade pain June 13, 2025 11 :33am Chief Complaint Admit Date 6 M FU February 14, 2025 7:3 1am E ORDERS February 14, 2025 8:1 6am INT LAB AND RAD April 08, 2025 8:25 am STRESS AND ANXIETY April 11, 2025 12:5 2pm ACUTE-PAIN BETWEEN SHOULDER BLADES Augus 2024 11:33am CHEST PAIN June 13, 2025 12 :28pm Reason for Visit Admit Date Crohns disease February 14, 2025 7:3 1am Clostridioides difficile infection February 14, 2025 7:31am Anxiety and depression April 11, 2025 1 2:52pm Chest pain in adult June 13, 2025 11 :33am Shoulder blade pain June 13, 2025 11 :33am Chief Complaint Admit Date INT LAB AND RAD April 08, 2025 8:25 am STRESS AND ANXIETY April 11, 2025 12:5 2pm ACUTE-PAIN BETWEEN SHOULDER BLADES Augus 2024 11:33am CHEST PAIN June 13, 2025 12 :28pm 4 M FU June 17, 2025 7: 48am Reason for Visit Admit Date Anxiety and depression April 11, 2025 1 2:52pm Chest pain in adult June 13, 2025 11 :33am Shoulder blade pain June 13, 2025 11 :33am Chief Complaint Admit Date INT LAB AND RAD April 08, 2025 8:25 am STRESS AND ANXIETY April 11, 2025 12:5 2pm ACUTE-PAIN BETWEEN SHOULDER BLADES Augus 2024 11:33am CHEST PAIN June 13, 2025 12 :28pm 4 M FU June 17, 2025 7: 48am 6 M FU July 26, 2025 8:22am Reason for Visit Admit Date Anxiety and depression April 11, 2025 1 2:52pm Chest pain in adult June 13, 2025 11 :33am Shoulder blade pain June 13, 2025 11 :33am Crohns disease June 17, 2025 7: 48am Clostridioides difficile infection Augus t 2024 7:48am Abdominal pain June 17, 2025 7: 48am Exacerbation of Crohn's disease of small intestine June 17, 2025 7:48am LINDY on CPAP July 26, 2025 8:22am Crohns disease July 26, 2025 8:22am Dyslipidemia July 26, 2025 8:22am Immunization due July 26, 2025 8:22am Acquired hypothyroidism July 26, 2025 8:22am Chronic constipation July 26 8:22am Osteoporosis July 26, 2025 8:22am Essential hypertension July 26, 2 025 8:22am Anxiety and depression July 26, 2 025 8:22am Additional Source Comments INFORMATION SOURCE (unrecogn ized section and content) DATE CREATED AUTHOR 04/16/2018 [facility] DATE CREATED AUTHOR AUTHOR'S ORGANIZ ATION 04/17/2018 [facility] DATE CREATED AUTHOR AUTHOR'S ORGANIZ ATION 05/26/2020 [facility] DATE CREATED AUTHOR AUTHOR'S ORGANIZ ATION 06/20/2020 [facility] DATE CREATED AUTHOR AUTHOR'S ORGANIZ ATION 04/30/2025 [facility] DATE CREATED AUTHOR AUTHOR'S ORGANIZ ATION 06/20/2025 [facility] DATE CREATED AUTHOR AUTHOR'S ORGANIZ ATION 09/02/2025 [facility] Source Comments (unrecognize d section and content) In the event this informatio n is protected by the Federal Confidentiality of Alcohol and Drug Abuse Patient Records regulations: The Federal rules restrict any use of the information to criminally investigate or prosecute any alcohol or drug abuse patient.[facility] the event this information is protected by the Federal Confidentiality of Alcohol and Drug Abuse Patient Records regulations: The Federal rules restrict any use of the information to criminally investigate or prosecute any alcohol or drug abuse patient.[facility] CenterIn the event this information is protected by the Federal Confidentiality of Alcohol and Drug Abuse Patient Records regulations: The Federal rules restrict any use of the information to criminally investigate or prosecute any alcohol or drug abuse patient.[facility] CenterIn the event this information is protected by the Federal Confidentiality of Alcohol and Drug Abuse Patient Records regulations: The Federal rules restrict any use of the information to criminally investigate or prosecute any alcohol or drug abuse patient.[facility] CenterIn the event this information is protected by the Federal Confidentiality of Alcohol and Drug Abuse Patient Records regulations: The Federal rules restrict any use of the information to criminally investigate or prosecute any alcohol or drug abuse patient.[facility] CenterIn the event this information is protected by the Federal Confidentiality of Alcohol and Drug Abuse Patient Records regulations: The Federal rules restrict any use of the information to criminally investigate or prosecute any alcohol or drug abuse patient.[facility] CenterIn the event this information is protected by the Federal Confidentiality of Alcohol and Drug Abuse Patient Records regulations: The Federal rules restrict any use of the information to criminally investigate or prosecute any alcohol or drug abuse patient.[facility] CenterIn the event this information is protected by the Federal Confidentiality of Alcohol and Drug Abuse Patient Records regulations: The Federal rules restrict any use of the information to criminally investigate or prosecute any alcohol or drug abuse patient.[facility] CenterIn the event this information is protected by the Federal Confidentiality of Alcohol and Drug Abuse Patient Records regulations: The Federal rules restrict any use of the information to criminally investigate or prosecute any alcohol or drug abuse patient.[facility] CenterIn the event this information is protected by the Federal Confidentiality of Alcohol and Drug Abuse Patient Records regulations: The Federal rules restrict any use of the information to criminally investigate or prosecute any alcohol or drug abuse patient.[facility] CenterIn the event this information is protected by the Federal Confidentiality of Alcohol and Drug Abuse Patient Records regulations: The Federal rules restrict any use of the information to criminally investigate or prosecute any alcohol or drug abuse patient.[facility] CenterIn the event this information is protected by the Federal Confidentiality of Alcohol and Drug Abuse Patient Records regulations: The Federal rules restrict any use of the information to criminally investigate or prosecute any alcohol or drug abuse patient.[facility] CenterIn the event this information is protected by the Federal Confidentiality of Alcohol and Drug Abuse Patient Records regulations: The Federal rules restrict any use of the information to criminally investigate or prosecute any alcohol or drug abuse patient.[facility] CenterIn the event this information is protected by the Federal Confidentiality of Alcohol and Drug Abuse Patient Records regulations: The Federal rules restrict any use of the information to criminally investigate or prosecute any alcohol or drug abuse patient.[facility] CenterIn the event this information is protected by the Federal Confidentiality of Alcohol and Drug Abuse Patient Records regulations: The Federal rules restrict any use of the information to criminally investigate or prosecute any alcohol or drug abuse patient.[facility] CenterIn the event this information is protected by the Federal Confidentiality of Alcohol and Drug Abuse Patient Records regulations: The Federal rules restrict any use of the information to criminally investigate or prosecute any alcohol or drug abuse patient.[facility] CenterIn the event this information is protected by the Federal Confidentiality of Alcohol and Drug Abuse Patient Records regulations: The Federal rules restrict any use of the information to criminally investigate or prosecute any alcohol or drug abuse patient.[facility] CenterIn the event this information is protected by the Federal Confidentiality of Alcohol and Drug Abuse Patient Records regulations: The Federal rules restrict any use of the information to criminally investigate or prosecute any alcohol or drug abuse patient.[facility] CenterIn the event this information is protected by the Federal Confidentiality of Alcohol and Drug Abuse Patient Records regulations: The Federal rules restrict any use of the information to criminally investigate or prosecute any alcohol or drug abuse patient.[facility] CenterIn the event this information is protected by the Federal Confidentiality of Alcohol and Drug Abuse Patient Records regulations: The Federal rules restrict any use of the information to criminally investigate or prosecute any alcohol or drug abuse patient.[facility] CenterIn the event this information is protected by the Federal Confidentiality of Alcohol and Drug Abuse Patient Records regulations: The Federal rules restrict any use of the information to criminally investigate or prosecute any alcohol or drug abuse patient.[facility] CenterIn the event this information is protected by the Federal Confidentiality of Alcohol and Drug Abuse Patient Records regulations: The Federal rules restrict any use of the information to criminally investigate or prosecute any alcohol or drug abuse patient.[facility] CenterIn the event this information is protected by the Federal Confidentiality of Alcohol and Drug Abuse Patient Records regulations: The Federal rules restrict any use of the information to criminally investigate or prosecute any alcohol or drug abuse patient.[facility] CenterIn the event this information is protected by the Federal Confidentiality of Alcohol and Drug Abuse Patient Records regulations: The Federal rules restrict any use of the information to criminally investigate or prosecute any alcohol or drug abuse patient.[facility] CenterIn the event this information is protected by the Federal Confidentiality of Alcohol and Drug Abuse Patient Records regulations: The Federal rules restrict any use of the information to criminally investigate or prosecute any alcohol or drug abuse patient.[facility] CenterIn the event this information is protected by the Federal Confidentiality of Alcohol and Drug Abuse Patient Records regulations: The Federal rules restrict any use of the information to criminally investigate or prosecute any alcohol or drug abuse patient.[facility] CenterIn the event this information is protected by the Federal Confidentiality of Alcohol and Drug Abuse Patient Records regulations: The Federal rules restrict any use of the information to criminally investigate or prosecute any alcohol or drug abuse patient.[facility] CenterIn the event this information is protected by the Federal Confidentiality of Alcohol and Drug Abuse Patient Records regulations: The Federal rules restrict any use of the information to criminally investigate or prosecute any alcohol or drug abuse patient.[facility] CenterIn the event this information is protected by the Federal Confidentiality of Alcohol and Drug Abuse Patient Records regulations: The Federal rules restrict any use of the information to criminally investigate or prosecute any alcohol or drug abuse patient.[facility] CenterIn the event this information is protected by the Federal Confidentiality of Alcohol and Drug Abuse Patient Records regulations: The Federal rules restrict any use of the information to criminally investigate or prosecute any alcohol or drug abuse patient.[facility] CenterIn the event this information is protected by the Federal Confidentiality of Alcohol and Drug Abuse Patient Records regulations: The Federal rules restrict any use of the information to criminally investigate or prosecute any alcohol or drug abuse patient.[facility] CenterIn the event this information is protected by the Federal Confidentiality of Alcohol and Drug Abuse Patient Records regulations: The Federal rules restrict any use of the information to criminally investigate or prosecute any alcohol or drug abuse patient.[facility] CenterIn the event this information is protected by the Federal Confidentiality of Alcohol and Drug Abuse Patient Records regulations: The Federal rules restrict any use of the information to criminally investigate or prosecute any alcohol or drug abuse patient.[facility] CenterIn the event this information is protected by the Federal Confidentiality of Alcohol and Drug Abuse Patient Records regulations: The Federal rules restrict any use of the information to criminally investigate or prosecute any alcohol or drug abuse patient.[facility] CenterIn the event this information is protected by the Federal Confidentiality of Alcohol and Drug Abuse Patient Records regulations: The Federal rules restrict any use of the information to criminally investigate or prosecute any alcohol or drug abuse patient.[facility] CenterIn the event this information is protected by the Federal Confidentiality of Alcohol and Drug Abuse Patient Records regulations: The Federal rules restrict any use of the information to criminally investigate or prosecute any alcohol or drug abuse patient.[facility] CenterIn the event this information is protected by the Federal Confidentiality of Alcohol and Drug Abuse Patient Records regulations: The Federal rules restrict any use of the information to criminally investigate or prosecute any alcohol or drug abuse patient.[facility] CenterIn the event this information is protected by the Federal Confidentiality of Alcohol and Drug Abuse Patient Records regulations: The Federal rules restrict any use of the information to criminally investigate or prosecute any alcohol or drug abuse patient.[facility] CenterIn the event this information is protected by the Federal Confidentiality of Alcohol and Drug Abuse Patient Records regulations: The Federal rules restrict any use of the information to criminally investigate or prosecute any alcohol or drug abuse patient.[facility] CenterIn the event this information is protected by the Federal Confidentiality of Alcohol and Drug Abuse Patient Records regulations: The Federal rules restrict any use of the information to criminally investigate or prosecute any alcohol or drug abuse patient.[facility] CenterIn the event this information is protected by the Federal Confidentiality of Alcohol and Drug Abuse Patient Records regulations: The Federal rules restrict any use of the information to criminally investigate or prosecute any alcohol or drug abuse patient.[facility] CenterIn the event this information is protected by the Federal Confidentiality of Alcohol and Drug Abuse Patient Records regulations: The Federal rules restrict any use of the information to criminally investigate or prosecute any alcohol or drug abuse patient.[facility] CenterIn the event this information is protected by the Federal Confidentiality of Alcohol and Drug Abuse Patient Records regulations: The Federal rules restrict any use of the information to criminally investigate or prosecute any alcohol or drug abuse patient.[facility] Reason for Visit (unrecogniz ed section and content) Reason Comments Yearly Exam With Mammogram Reason Comments Opened In Error Reason Comments Results Reason Comments Radiology US Specialty Diagnoses / Procedures Referred By Contac t Referred To Contact [facility] Diagnoses Abnormal mammogram Procedures US BREAST LTD LT US BREAST UNI REAL TIME WITH IMAGE LIMITED PodlogThao murray DIRECTOR [facility].[address] [place] [address] Br Imaging [address] [place] [address] Referral ID Status Reason Start Date Expiration Date V isits Requested Visits Authorized [id number] Closed Auto-Generate d Referral 01/23/2022 02/22/2023 1 1 Reason Comments Results breast ultrasound Reason Comments ED Follow-up Diverticulitis Reason Comments Crohns Diverticulitis, GI m joesph to [place], needs new GI Reason Onset Date Comments Refill Request 03/19/2022 Reason Comments Refill Request Reason Comments Orders Reason Comments Abdominal Pain Specialty Diagnoses / Procedures Referred By Contac t Referred To Contact CT IMAGING Diagnoses Left lower quadrant abdominal pain RLQ abdominal pain Pelvic pain Procedures CT ABD/PEL W IVCON CT ABD & PELVIS W/CONTRAST Liz Bean, DIRECTOR [facility] [place] [address] Ct Imaging Referral ID Status Reason Start Date Expiration Date V isits Requested Visits Authorized [id number] Closed Auto-Generate d Referral 04/22/2022 06/21/2022 2 2 Reason Comments Imm/Inj Reason Comments Abdominal Pain And pressure. Reason Comments Patient Question Refill Request Reason Comments Follow Up Lower abdominal pain - patient reports it's worse. Labs to be drawn after visit. Reason Comments error Reason Onset Date Comments Refill Request 08/15/2022 Reason Onset Date Comments Refill Request 11/01/2022 Reason Comments medication review Allergic Reaction Would like to have s ome allergy testing Reason Comments Follow Up BP Reason Comments Radiology XR Reason Comments Pain Care Teams (unrecognized sec tion and content) Insurance Sales Assistant Relationship Specialty Start Date End Date Maria Del Carmen Leong MD [address] [place] [address] PCP - General Family Practice 08/26/18 Insurance Sales Assistant Relationship Specialty Start Date End Date Maria Del Carmen Leong MD [address] [facility] [place] [address] PCP - General Family Practice 08/26/18 Insurance Sales Assistant Relationship Specialty Start Date End Date Maria Del Carmen Leong MD [address] [facility] [place] [address] PCP - General Family Practice 08/26/18 Insurance Sales Assistant Relationship Specialty Start Date End Date Maria Del Carmen Leong MD [address] [facility] [place] [address] PCP - General Family Practice 08/26/18 Insurance Sales Assistant Relationship Specialty Start Date End Date Maria Dle Carmen Leong MD [address] [facility] [place] [address] PCP - General Family Practice 08/26/18 Insurance Sales Assistant Relationship Specialty Start Date End Date Maria Del Carmen Leong MD [address] [facility] [place] [address] PCP - General Family Practice 08/26/18 Insurance Sales Assistant Relationship Specialty Start Date End Date Maria Del Carmen Leong MD [address] [facility] [place] [address] PCP - General Family Practice 08/26/18 Insurance Sales Assistant Relationship Specialty Start Date End Date Maria Del Carmen Leong MD [address] [facility] [place] [address] PCP - General Family Practice 08/26/18 Insurance Sales Assistant Relationship Specialty Start Date End Date Maria Del Carmen Leong MD [address] [facility] [place] [address] PCP - General Family Practice 08/26/18 Insurance Sales Assistant Relationship Specialty Start Date End Date Maria Del Carmen Leong MD [address] [facility] [place] [address] PCP - General Family Practice 08/26/18 Insurance Sales Assistant Relationship Specialty Start Date End Date Maria Del Carmen Leong MD [address] [facility] [place] [address] PCP - General Family Practice 08/26/18 Insurance Sales Assistant Relationship Specialty Start Date End Date Maria Del Carmen Leong MD [address] [facility] [place] [address] PCP - General Family Practice 08/26/18 Insurance Sales Assistant Relationship Specialty Start Date End Date Maria Del Carmen Leong MD [address] [facility] [place] [address] PCP - General Family Practice 08/26/18 Insurance Sales Assistant Relationship Specialty Start Date End Date Maria Del Carmen Leong MD [address] [facility] [place] [address] PCP - General Family Practice 08/26/18 Insurance Sales Assistant Relationship Specialty Start Date End Date Maria Del Carmen Leong MD [address] [facility] [place] [address] PCP - General Family Practice 08/26/18 Insurance Sales Assistant Relationship Specialty Start Date End Date Maria Del Carmen Leong MD [address] [facility] [place] [address] PCP - General Family Practice 08/26/18 Insurance Sales Assistant Relationship Specialty Start Date End Date Maria Del Carmen Leong MD [address] [facility] [place] [address] PCP - General Family Practice 08/26/18 Insurance Sales Assistant Relationship Specialty Start Date End Date Maria Del Carmen Leong MD [address] [facility] [place] [address] PCP - General Family Practice 08/26/18 Insurance Sales Assistant Relationship Specialty Start Date End Date Maria Del Carmen Leong MD [address] [facility] [place] [address] PCP - General Family Practice 08/26/18 Insurance Sales Assistant Relationship Specialty Start Date End Date Maria Del Carmen Leong MD [address] [facility] [place] [address] PCP - General Family Practice 08/26/18 Insurance Sales Assistant Relationship Specialty Start Date End Date Maria Del Carmen Leong MD [address] [facility] [place] [address] PCP - General Family Practice 08/26/18 Insurance Sales Assistant Relationship Specialty Start Date End Date Maria Del Carmen Leong MD [address] [facility] [place] [address] PCP - General Family Practice 08/26/18 Insurance Sales Assistant Relationship Specialty Start Date End Date Maria Del Carmen Leong MD [address] [facility] [place] [address] PCP - General Family Medicine 08/26/18 Insurance Sales Assistant Relationship Specialty Start Date End Date Maria Del Carmen Leong MD [address] [facility] [place] [address] PCP - General Family Medicine 08/26/18 Insurance Sales Assistant Relationship Specialty Start Date End Date Maria Del Carmen Leong MD [address] [facility] [place] [address] PCP - General Family Medicine 08/26/18 Insurance Sales Assistant Relationship Specialty Start Date End Date Maria Del Carmen Leong MD [address] [facility] [place] [address] PCP - General Family Medicine 08/26/18 Insurance Sales Assistant Relationship Specialty Start Date End Date Maria Del Carmen Leong MD [address] [facility] [place] [address] PCP - General Family Medicine 08/26/18 Insurance Sales Assistant Relationship Specialty Start Date End Date Maria Del Carmen Leong MD [address] [facility] [place] [address] PCP - General Family Medicine 08/26/18 Insurance Sales Assistant Relationship Specialty Start Date End Date Maria Del Carmen Leong MD [address] [facility] [place] [address] PCP - General Family Medicine 08/26/18 Team Status: Active Member Role Status Dates Dr. Kashmir Leong MD Family Provider Active No Primary Care Physician Primary Care Provider Active Team Status: Inactive Member Role Status Dates Dr. Kashmir Leong MD Primary Care Provider, Ref erring Provider Active Dr. Arthur Bull DO Attending Provider Active Team Status: Active Member Role Status Dates No Primary Care Physician Primary Care Provider Active Dr. Arthur Bull DO Attending Provider, Referring Provider Active Team Status: Inactive Member Role Status Dates No Primary Care Physician Primary Care Provider Active Dr. Karma Henry DO Emergency Provider Active Team Status: Active Member Role Status Dates Dr. Kashmir Leong MD Family Provider Active Dr. Andreas Buenrostro MD Primary Care Provider Active Team Status: Active Member Role Status Dates Dr. Henry Weiner MD Emergency Provider Active No Primary Care Physician Primary Care Provider Active Dr. Tiffany Muñoz MD Admit Provider, Other Provider Active Dr. Arthur Bull DO Attending Provider Active Team Status: Active Member Role Status Dates Dr. Henry Weiner MD Emergency Provider Active No Primary Care Physician Primary Care Provider Active Dr. Tiffany Muñoz MD Admit Provider, Attending Provider, Other Provider Active Team Status: Inactive Member Role Status Dates No Primary Care Physician Primary Care Provider Active Dr. Arthur Bull DO Attending Provider, Referring Provider Active Team Status: Inactive Member Role Status Dates No Primary Care Physician Primary Care Provider Active Dr. Karma Henry DO Attending Provider, Emergency Pro vider Active Team Status: Inactive Member Role Status Dates Dr. Henry Weiner MD Emergency Provider Active No Primary Care Physician Primary Care Provider Active Dr. Tiffany Muñoz MD Admit Provider, Attending Prov ider Active Team Status: Inactive Member Role Status Dates Dr. Luba Godoy MD Emergency Provider Active Dr. Andreas Buenrostro MD Primary Care Provider Active Team Status: Active Member Role Status Dates Dr. Andreas Buenrostro MD Primary Care Provider Active Katerin Jacobs Attending Provider Active Team Status: Inactive Member Role Status Dates Dr. Andreas Buenrostro MD Primary Care Provider Active Dr. Josef Lugo MD Emergency Provider Active Team Status: Inactive Member Role Status Dates No Primary Care Physician Referring Provider Active Dr. Arthur Bull DO Attending Provider Active Dr. Andreas Buenrostro MD Primary Care Provider Active Team Status: Inactive Member Role Status Dates No Primary Care Physician Referring Provider Active Dr. Andreas Buenrostro MD Primary Care Provider, Attendi ng Provider Active Team Status: Inactive Member Role Status Dates Dr. Andreas Buenrostro MD Primary Care Provider, Referri ng Provider Active Reji HUTSON, PA Attending Provider Active Team Status: Inactive Member Role Status Dates Dr. Luba Godoy MD Attending Provider, Emergency Provider Active Dr. Andreas Buenrostro MD Primary Care Provider Active Team Status: Inactive Member Role Status Dates Dr. Andreas Buenrostro MD Primary Care Provider Active Dr. Josef Lugo MD Attending Provider, Emergency Provider Active Team Status: Inactive Member Role Status Dates Dr. Andreas Buenrostro MD Primary Care Provider Active Dr. Paul Finch DO Attending Provider, Emergency P yasmin Active Team Status: Inactive Member Role Status Dates Dr. Andreas Buenrostro MD Primary Care Pro vider, Attending Provider, Referring Provider Active Team Status: Active Member Role Status Dates Dr. Andreas Buenrostro MD Primary Care Provider Active Reji Strickland PA, PA Attending Provider, Referring Pr ovider Active Team Status: Active Member Role Status Dates Dr. Henry Weiner MD Emergency Provider Active No Primary Care Physician Primary Care Provider Active Dr. Tiffany Muñoz MD Admit Provider, Referring Provider, Other Provider Active Dr. Arthur Bull DO Attending Provider Active Team Status: Active Member Role Status Dates Dr. Andreas Buenrostro MD Primary Care Provider Active Dr. Paul Maldonado MD Attending Provider Active Team Status: Active Member Role Status Dates Dr. Andreas Buenrostro MD Primary Care Pro vider, Attending Provider, Referring Provider Active Team Status: Inactive Member Role Status Dates Dr. Andreas Buenrostro MD Primary Care Provider Active Reji HUTSON, PA Attending Provider, Referring Pr ovider Active Team Status: Active Member Role Status Dates Dr. Andreas Buenrostro MD Primary Care Provider, Attendi ng Provider Active Team Status: Inactive Member Role Status Dates Dr. Andreas Buenrostro MD Primary Care Provider Active Dr. Masood Ruby DO Emergency Provider Active Team Status: Inactive Member Role Status Dates Dr. Andreas Buenrostro MD Primary Care Provider, Referri ng Provider Active cap endo Active Dr. Arthur Bull DO Attending Provider Active Team Status: Inactive Member Role Status Dates Dr. Andreas Buenrostro MD Primary Care Provider, Attendi ng Provider Active Team Status: Active Member Role Status Dates Dr. Andreas Buenrostro MD Primary Care Provider, Referri ng Provider Active Dr. Paul Maldonado MD Attending Provider Active Team Status: Inactive Member Role Status Dates Dr. Andreas Buenrostro MD Primary Care Provider Active Dr. Masood Ruby DO Attending Provider, Emergency Provider Active Team Status: Inactive Member Role Status Dates Dr. Andreas Buenrostro MD Primary Care Provider Active Dr. Casimiro Becerra DO Attending Provider, Emergency Pr ovider Active Team Status: Inactive Member Role Status Dates Dr. Andreas Buenrostro MD Primary Care Provider Active Dr. Arthur Bull DO Attending Provider, Referring Provider Active Insurance Sales Assistant Relationship Specialty Start Date End Date Maria Del Carmen Leong MD [address] [place], [place] [id number] PCP - General Family Medicine 08/26/18 Team Status: Inactive Member Role Status Dates Dr. Andreas Buenrostro MD Primary Care Provider Active Dr. Raoul Castaneda MD Attending Provider Active Team Status: Inactive Member Role Status Dates Dr. Andreas Buenrostro MD Primary Care Provider, Referri ng Provider Active Deondre HUTSON, PA Attending Provider Active Team Status: Active Member Role Status Dates Dr. Andreas Buenrostro MD Primary Care Provider Active Trisha Carroll Attending Provider Active Team Status: Inactive Member Role Status Dates Dr. Andreas Buenrostro MD Primary Care Provider, Referri ng Provider Active Dr. Rishi Pritchard MD Active Dr. Raoul Castaneda MD Attending Provider Active Team Status: Active Member Role Status Dates Dr. Arthur Bull DO Attending Provider, Other Prov ider Active Dr. Andreas Buenrostro MD Primary Care Provider, Referri ng Provider Active Team Status: Inactive Member Role Status Dates Dr. Arthur Bull DO Attending Provider Active Dr. Andreas Buenrostro MD Primary Care Provider, Referri ng Provider Active Team Status: Inactive Member Role Status Dates Dr. Andreas Buenrostro MD Primary Care Provider Active Dr. Luba Godoy MD Attending Provider, Emergency Provider Active Team Status: Inactive Member Role Status Dates Dr. Kashmir Leong MD Referring Provider Active Dr. Arthur Bull DO Attending Provider Active Dr. Andreas Buenrostro MD Primary Care Provider Active Team Status: Inactive Member Role Status Dates Dr. Andreas Buenrostro MD Primary Care Provider, Referri ng Provider Active Dr. Arthur Bull DO Attending Provider Active Team Status: Inactive Member Role Status Dates Dr. Andreas Buenrostro MD Primary Care Provider Active Dr. Arthur Bull DO Attending Provider Active Insurance Sales Assistant Relationship Specialty Start Date End Date Maria Del Carmen Leong MD [address] [place], [place] [id number] PCP - General Family Medicine 08/26/18 Insurance Sales Assistant Relationship Specialty Start Date End Date Maria Del Carmen Leong MD [address] [place], [place] [id number] PCP - General Family Medicine 08/26/18 Insurance Sales Assistant Relationship Specialty Start Date End Date Maria Del Carmen Leong MD [address] [place], [place] [address] PCP - General Family Medicine 08/26/18 Thao Pineda APRN.REDIPPER [address] [place] [address] [facility] 10/02/24 Tracy Vasquez, GEORGE.REDIPPER [address] [place] [address] [facility] 01/17/25 Team Status: Inactive Member Role Status Dates Dr. Andreas Buenrostro MD Primary Care Provider Active Start: January 25, 2025 End: January 25, 2025 Dr. Andreas Buenrostro MD Attending Provider Active Start: January 25, 2025 End: January 25, 2025 Dr. Andreas Buenrostro MD Referring Provider Active Start: January 25, 2025 End: January 25, 2025 Team Status: Inactive Member Role Status Dates Dr. Andreas Buenrostro MD Primary Care Provider Active Start: February 14, 2025 End: February 14, 2025 Dr. Andreas Buenrostro MD Referring Provider Active Start: February 14, 2025 End: February 14, 2025 Dr. Arthur Bull DO Attending Provider Active Start: February 14, 2025 End: February 14, 2025 Team Status: Inactive Member Role Status Dates Dr. Andreas Buenrostro MD Primary Care Provider Active Start: February 14, 2025 End: February 14, 2025 Dr. Arthur Bull DO Attending Provider Active Start: February 14, 2025 End: February 14, 2025 Dr. Arthur Bull DO Referring Provider Active Start: February 14, 2025 End: February 14, 2025 Team Status: Active Member Role Status Dates Dr. Andreas Buenrostro MD Primary Care Provider Active Start: April 08, 2025 Dr. Arthur Bull DO Attending Provider Active Start: April 08, 2025 Dr. Arthur Bull DO Referring Provider Active Start: April 08, 2025 Team Status: Inactive Member Role Status Dates Dr. Andreas Buenrostro MD Primary Care Provider Active Start: April 11, 2025 End: April 11, 2025 Dr. Andreas Buenrostro MD Attending Provider Active Start: April 11, 2025 End: April 11, 2025 Dr. Andreas Buenrostro MD Referring Provider Active Start: April 11, 2025 End: April 11, 2025 Team Status: Inactive Member Role Status Dates Dr. Andreas Buenrostro MD Primary Care Provider Active Start: April 08, 2025 End: April 08, 2025 Dr. Arthur Bull DO Attending Provider Active Start: April 08, 2025 End: April 08, 2025 Dr. Arthur Bull DO Referring Provider Active Start: April 08, 2025 End: April 08, 2025 Insurance Sales Assistant Relationship Specialty Start Date End Date Podlogar, , DIRECTOR REGULATORY AFFAIRS.REDIPPER [address] [facility] [place] [address] [facility] 10/02/24 Insurance Sales Assistant Relationship Specialty Start Date End Date Podlogar, , DIRECTOR REGULATORY AFFAIRS.REDIPPER [address] [facility] [place] [address] [facility] 10/02/24 Insurance Sales Assistant Relationship Specialty Start Date End Date Podlogar, , DIRECTOR REGULATORY AFFAIRS.REDIPPER [address] [facility] [place] [address] [facility] 10/02/24 Team Status: Active Member Role/Relationship Status Dates Dr. Kashmir Leong MD Family Provider Active Dr. Andreas Buenrostro MD Primary Care Provider Active Team Status: Inactive Member Role/Relationship Status Dates Dr. Andreas Buenrostro MD Primary Care Provider Active Start: February 14, 2025 End: February 14, 2025 Dr. Andreas Buenrostro MD Referring Provider Active Start: February 14, 2025 End: February 14, 2025 Dr. Arthur Bull DO Attending Provider Active Start: February 14, 2025 End: February 14, 2025 Team Status: Inactive Member Role/Relationship Status Dates Dr. Andreas Buenrostro MD Primary Care Provider Active Start: February 14, 2025 End: February 14, 2025 Dr. Arthur Bull DO Attending Provider Active Start: February 14, 2025 End: February 14, 2025 Dr. Arthur Bull DO Referring Provider Active Start: February 14, 2025 End: February 14, 2025 Team Status: Inactive Member Role/Relationship Status Dates Dr. Andreas Buenrostro MD Primary Care Provider Active Start: April 08, 2025 End: April 08, 2025 Dr. Arthur Bull DO Attending Provider Active Start: April 08, 2025 End: April 08, 2025 Dr. Arthur Bull DO Referring Provider Active Start: April 08, 2025 End: April 08, 2025 Team Status: Inactive Member Role/Relationship Status Dates Dr. Andreas Buenrostro MD Primary Care Provider Active Start: April 11, 2025 End: April 11, 2025 Dr. Andreas Buenrostro MD Attending Provider Active Start: April 11, 2025 End: April 11, 2025 Dr. Andreas Buenrostro MD Referring Provider Active Start: April 11, 2025 End: April 11, 2025 Team Status: Inactive Member Role/Relationship Status Dates Dr. Andreas Buenrostro MD Primary Care Provider Active Start: June 13, 2025 End: June 13, 2025 Dr. Andreas Buenrostro MD Attending Provider Active Start: June 13, 2025 End: June 13, 2025 Dr. Andreas Buenrostro MD Referring Provider Active Start: June 13, 2025 End: June 13, 2025 Team Status: Active Member Role/Relationship Status Dates Dr. Andreas Buenrostro MD Primary Care Provider Active Team Status: Inactive Member Role/Relationship Status Dates Dr. Andreas Buenrostro MD Primary Care Provider Active Start: June 13, 2025 End: June 13, 2025 Dr. Mirella Card MD Emergency Provider Active S tart: June 13, 2025 End: June 13, 2025 Team Status: Inactive Member Role/Relationship Status Dates Dr. Andreas Buenrostro MD Primary Care Provider Active Start: April 08, 2025 End: April 08, 2025 Dr. Arthur Bull DO Attending Provider Active Start: April 08, 2025 End: April 08, 2025 Dr. Arthur Bull DO Referring Provider Active Start: April 08, 2025 End: April 08, 2025 Team Status: Inactive Member Role/Relationship Status Dates Dr. Andreas Buenrostro MD Primary Care Provider Active Start: April 11, 2025 End: April 11, 2025 Dr. Andreas Buenrostro MD Attending Provider Active Start: April 11, 2025 End: April 11, 2025 Dr. Andreas Buenrostro MD Referring Provider Active Start: April 11, 2025 End: April 11, 2025 Team Status: Inactive Member Role/Relationship Status Dates Dr. Andreas Buenrostro MD Primary Care Provider Active Start: June 13, 2025 End: June 13, 2025 Dr. Andreas Buenrostro MD Attending Provider Active Start: June 13, 2025 End: June 13, 2025 Dr. Andreas Buenrostro MD Referring Provider Active Start: June 13, 2025 End: June 13, 2025 Team Status: Inactive Member Role/Relationship Status Dates Dr. Andreas Buenrostro MD Primary Care Provider Active Start: June 13, 2025 End: June 13, 2025 Dr. Mirella Card MD Attending Provider Active S tart: June 13, 2025 End: June 13, 2025 Dr. Mirella Card MD Emergency Provider Active S tart: June 13, 2025 End: June 13, 2025 Team Status: Inactive Member Role/Relationship Status Dates Dr. Andreas Buenrostro MD Primary Care Provider Active Start: June 17, 2025 End: June 17, 2025 Dr. Andreas Buenrostro MD Referring Provider Active Start: June 17, 2025 End: June 17, 2025 Dr. Arthur Bull DO Attending Provider Active Start: June 17, 2025 End: June 17, 2025 Team Status: Active Member Role/Relationship Status Dates Dr. Andreas Buenrostro MD Primary care physician Active Team Status: Inactive Member Role/Relationship Status Dates Dr. Andreas Buenrostro MD Primary care physician Active Start: April 08, 2025 End: April 08, 2025 Dr. Arthur Bull DO Attending physician Active Start: April 08, 2025 End: April 08, 2025 Dr. Arthur Bull DO Referring Provider Active Start: April 08, 2025 End: April 08, 2025 Team Status: Inactive Member Role/Relationship Status Dates Dr. Andreas Buenrostro MD Primary care physician Active Start: April 11, 2025 End: April 11, 2025 Dr. Andreas Buenrostro MD Attending physician Active Start: April 11, 2025 End: April 11, 2025 Dr. Andreas Buenrostro MD Referring Provider Active Start: April 11, 2025 End: April 11, 2025 Team Status: Inactive Member Role/Relationship Status Dates Dr. Andreas Buenrostro MD Primary care physician Active Start: June 13, 2025 End: June 13, 2025 Dr. Andreas Buenrostro MD Attending physician Active Start: June 13, 2025 End: June 13, 2025 Dr. Andreas Buenrostro MD Referring Provider Active Start: June 13, 2025 End: June 13, 2025 Team Status: Inactive Member Role/Relationship Status Dates Dr. Andreas Buenrostro MD Primary care physician Active Start: June 13, 2025 End: June 13, 2025 Dr. Mirella Card MD Attending physician Active Start: June 13, 2025 End: June 13, 2025 Dr. Mirella Card MD Emergency Departmen t Physician Active Start: June 13, 2025 End: June 13, 2025 Team Status: Inactive Member Role/Relationship Status Dates Dr. Andreas Buenrostro MD Primary care physician Active Start: June 17, 2025 End: June 17, 2025 Dr. Andreas Buenrostro MD Referring Provider Active Start: June 17, 2025 End: June 17, 2025 Dr. Arthur Bull DO Attending physician Active Start: June 17, 2025 End: June 17, 2025 Team Status: Inactive Member Role/Relationship Status Dates Dr. Andreas Buenrostro MD Primary care physician Active Start: July 26, 2025 End: July 26, 2025 Dr. Andreas Buenrostro MD Attending physician Active Start: July 26, 2025 End: July 26, 2025 Dr. Andreas Buenrostro MD Referring Provider Active Start: July 26, 2025 End: July 26, 2025 Goals (unrecognized section and content) Goals may be documented in a n alternate sectionGoals may be documented in an alternate sectionGoals may be documented in an alternate sectionGoals may be documented in an alternate sectionGoals may be documented in an alternate sectionGoals may be documented in an alternate sectionGoals may be documented in an alternate sectionGoals may be documented in an alternate sectionGoals may be documented in an alternate sectionGoals may be documented in an alternate sectionGoals may be documented in an alternate sectionGoals may be documented in an alternate section FOR RECORDS PERTAINING TO PATIENTS WHO ARE OR HAVE BEEN ENROLLED IN A CHEMICAL DEPENDENCY/SUBSTANCEABUSE PROGRAM, SOME INFORMATION MAY BE OMITTED. This clinical summary was aggregated from multiple sources. Caution should be exercised in using it in the provision of clinical care. This summary normalizes information from multiple sources, and as a consequence, information in this document may materially change the coding, format and clinical context of patient data. In addition, data may be omitted in some cases. CLINICAL DECISIONS SHOULD BE BASED ON THE PRIMARY CLINICAL RECORDS. [facility] [employer] [facility]. provides no warranty or guarantee of the accuracy or completeness of information in this document.
== END | disposition home or self-care (01) ==
LOC: LAB 06:58
PROVIDERS: PCP Internal Medicine; Referring Provider Physician Assistant Medical; Visit Provider Physician Assistant Medical
DX: R73.09 Other abnormal glucose (principal)
CPT/HCPCS: 36415; 83036

== ENCOUNTER → 2025-09-19 | Outpatient (CLI) | payer MEDICARE, MEDICAID, SELFPAY ==
--- OUTSIDE RECORDS SUMMARY | 2025-09-19 05:48 | XMS RPT_ITS | CCD ---
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 Kashmir Leong Primary Care Provider [phone] Dr. Kashmir Leong Referring Provider Dr. Arthur Bull Attending Provider Dr. Kashmir Leong Primary Care Provider [phone] Dr. Kashmir Leong Referring Provider Dr. Arthur Bull Attending Provider Dr. Henry Weiner Emergency Provider Care Physician, No Primary Primary Care Provider Unavailable Dr. Tiffany Muñoz Admit Provider Dr. Tiffany Muñoz Other Provider Dr. Tiffany Muñoz Attending Provider [phone] Dr. Andreas Buenrostro Primary Care Provider Katerin [...] Provider Friend, Dr. Gibson Attending Provider [phone] Dr. Henry Weiner Emergency Provider Care Physician, [...] Provider Billy, Dr. Gibson Attending Provider [phone] Dr. Andreas Buenrostro Primary Care Provider Dr. [...] Dr. Andreas Buenrostro Attending Provider [phone] Podlogar COOKY MACHINE OPERATOR.MAINTENANCE PLUMBER, Thao Unavailable Christina COOKY MACHINE OPERATOR.MAINTENANCE PLUMBER, Tracy Unavailable Dr. Andreas Buenrostro MD Primary [...] Emergency Provider Unavailab vamsi Buenrostro MD, Dr. Lopez Primary Care Provider [phone] Billy KAN, Dr. Gibson Attending Provider Friend , Dr. Gibson Referring Provider Porter GREWAL, Dr. Lopez Referring Provider Kyaw GREWAL, Dr. Vu Attending Provider Unavailab le PORTER, ANDREAS G Primary Care Unavailable LUBA CRANE Attending Unavailable Porter GREWAL, Dr. Lopez Primary Care Physician [phone] Billy KAN, Dr. Gibson Attending Physician [phone] Porter GREWAL, Dr. Lopez Attending Physician [phone] Kyaw GREWAL, Dr. Vu Attending Physician Unavaila tootie Card MD, Dr. Vu Emergency Department Physici an Unavailable [place], Andreas Primary Care Unavailable FriendArthur Attending Unavailable [place], Andreas Referring Unavailable Porter, Andreas Primary Care Unavailable Porter, Andreas Attending Unavailable Porter, Andreas Referring Unavailable Trisha Johnston Attending Unavail able Trisha Johnston Referring Unavail able [place], Andreas Primary Care Unavailable Trisha Johnston Attending Unavail able Trisha Johnston Referring Unavail able [place], Andreas Primary Care Unavailable Porter, Andreas Primary Care Unavailable FriendArthur Attending Unavailable Friend, Arthur Referring Unavailable [place], Andreas Primary Care Unavailable Friend, Arthur Attending Unavailable Friend, Arthur Referring Unavailable Porter, Andreas Primary Care Unavailable Mirella Card Attending Unavailable [place], Andreas Primary Care Unavailable Porter, Andreas Attending Unavailable Porter, Andreas Referring Unavailable [place], Nadreas Primary Care Unavailable Friend, Arthur Attending Unavailable Porter, Andreas Referring Unavailable [place], Andreas Primary Care Unavailable Porter, Andreas Attending Unavailable Porter, Andreas Referring Unavailable [place], Andreas Primary Care Unavailable Elizabeth Gross Attending Unavailable Porter, Andreas Referring Unavailable Trisha Johnston Attending Unavail able [place], Andreas Referring Unavailable Porter, Andreas Primary Care Unavailable [place], Andreas Primary Care Unavailable Porter, Andreas Attending Unavailable [place], Andreas Referring Unavailable Allergies Allergy Classification Reported Allergen(s) Allergy Type Date of Onset Reaction(s) Facility (20 sources) nickel; Translations: [NICKEL] Drug Allergy 7 Rash [facility] (17 sources) Penicillins; Translations: [PENICILLINS] Drug Allergy 6 Intolerance [facility] (20 sources) Seasonal allergy; Translations: [SEASONAL ALLERGIES] Allergy to substance 6 Unknown [facility] (9 sources) Simvastatin Drug Allergy 8 Myalgia [facility] Work Phone: (20 sources) Tetracycline; Translations: [TETRACYCLINE] Drug Allergy 4 GI Upset, Other: See Comments [facility] (20 sources) Penicillins Drug Allergy 6 Intolerance [facility] (20 sources) Penicillins Allergy to substance 3 Unknown [facility] (20 sources) Tetracyclines Propensity to adverse reactions 3 Nausea [facility] (4 sources) Penicillins Drug Allergy 6 Intolerance [facility] (1 source) Penicillins Drug allergy (disorder) 5 [facility] Repository (1 source) Tetracyclines Drug allergy (disorder) 5 [facility] Repository (1 source) Seasonal Allergies: Uncoded; Translations: [Seasonal Allergies: Uncoded] Propensity to adverse reactions (disorder) 5 [facility] Repository Medications Current Medications Medication Drug Class(es) Dates Sig (Normalized) Sig (Original) bifidobacterium animalis [id number] unt / bifidobacterium longum [id number] unt / lactobacillus acidophilus [id number] unt oral capsule (20 sources) Start: 09-02-2019 take 1 capsule by mouth once daily FLORAJEN3 460 mg (7.5-6- 1.5 bill. cell) cap TAKE 1 CAPSULE BY MOUTH EVERY DAY 30 capsule 2 09/02/2019 Active Comment on above: TAKE 1 CAPSULE BY MO [facility] EVERY DAY bisacodyl 5 mg delayed release [...] Start: 04-20-2025 take 1 tablet by sarah every twenty-four hours as needed clonazePAM (KLONOPIN) [...] sleep apnea) CPAP at 13/9 1 Device 0 06/24/2019 Active Comment on [...] 01-20-2023 docusate sodium 50 mg / sennosides, long-term 8.6 mg oral capsule (6 sources) Start: [...] Comment on above: Take 1 tablet by [facility] one time only for 1 dose. Repeat [...] 2000 mg chewable tablet (6 sources) Start: Inulin (Fiber Gummies) 2 gram tablet,chewable Active [...] contrast administration guidelines link. lactobacillus rhamnosus gg [id number] unt oral capsule (18 sources) Start: 023 End: take 10 capsules by mouth once daily [...] tablet by sarah th once daily. magnesium oxide 400 mg oral [...] magnesium capsule Discontinued 400 mg PO daily January 25, 2025 11:48am July 26, 2025 [...] {tbl} PO DAILY January 25, 2025 11:48am Complies with drug therapy Start: 01-25-2025 Multivitamin W ith Folic Acid (One Daily Essential) 400 mcg tablet Active 1 {tbl} PO DAILY January 25, 2025 11:48am Start: 01-25-2025 Multivitamin [...] 400 mcg tablet Active 0 .ROUTE .COMPLEX 90 October 28, 2023 10:36am 1 TAB ORALLY [...] on above: Take 1 capsule by mo [facility] twice daily for 5 days. Super Collagen [...] Start: 08-15-2022 take 1 tablet by sarah th once [...] TABLET PO EVERY 6 HOURS NEEDED 10 January 10, 2023 January 15, 2023 12:05am Start: 01-10-2023 End: 01-15-2023 Start: 12-28-2022 take 1 tablet by sarah th every four hours as needed Hydrocodone-Acetaminophen Active 1 TABLE T PO EVERY 4 HOURS NEEDED 10 December 28, 2022 Start: 02-26-2022 End: 03-01-2022 [...] NEEDED as needed for Pain 12 3 January 15, 2023 January 17, 2023 1:07pm Abdominal pain Unspecified abdominal pain Start: 12-28-2022 End: 01-17-2023 take 1 tablet by mouth every six hours as needed Oxycodone-Acetaminophen Discontinued 1 TABLET PO EVERY 6 HOURS NEEDED 12 January 15, 2023 January 17, 2023 1:07pm [...] on above: Take 5,000 mg by sarah th. budesonide 3 mg delayed release oral capsule [...] Carbonate-Vitamin D3 Discontinued 1 TABLET PO DAILY February 04, 2023 9:45am February 05, 2024 [...] A DAY as needed for Back Pain 20 February 17, 2023 11:29am July 18, 2023 [...] Comment on above: Take 1 tablet by [facility] every 8 hours as needed for Muscle [...] TABLET NEEDED. Take 1 tablet by sarah twice daily as needed. Take one tablet [...] above: Take 1 tablet by sarah once daily for 30 days. hydrOXYzine hydrochloride [...] tablet Discontinued 75 ug PO DAILY 90 June 18, 2024 1:00pm August 06, 2024 [...] capsule Discontinued 145 ug PO DAILY 30 April 24, 2023 12:00am May 29, 2023 [...] solution Discontinued 300 mL PO ONE TIME 1 July 30, 2023 12:00am August 04, 2023 [...] tablet Discontinued 1 {tbl} PO DAILY 90 February 17, 2023 11:32am May 19, 2023 [...] 11:32am Start: 12-28-2022 take 1 tablet by [facility] once daily Multivitamin With Folic Acid (Therems [...] December 01, 2024 11:05am polyethylene glycol 3350 39924 mg powder for oral solution (20 sources) [...] on above: TAKE 2 TABLETS BY MO UTH IN THE MORNING AND 2 TABLETS IN [...] Discontinued 20 mg PO DAILY 14 14 January 04, 2023 1:00am January 15, 2023 12:05am Start: 12-28-2022 End: 01-04-2023 take 3 tablets by mouth once daily Prednisone 20 mg tablet Discontinued 60 mg PO DAILY 14 0 December 28, 2022 1:00am January 04, 2023 12:28pm Start: 12-28-2022 End: 01-04-2023 take 60 mg by mouth once daily Prednisone Discontinued 60 MG PO DAILY December 28, 2022 1:00am January 04, 2023 [...] Coronary atherosclerosis; Translations: [Atherosclerotic heart disease of [place] coronary artery without angina pectoris] Onset: 0 [...] Vaccination needed; Translations: [Encounter for immunization] Onset: 5 Episodic Inflammation; infection of eye (except that [...] [Other specified disorders of bone, shoulder] Onset: Episodic Other circulatory disease (20 sources) Carotid bruit; Translations: [Other specified symptoms and signs involving the circulatory and respiratory systems] 11-24-2018 Episodic Other eye disorders (7 sources) Other vitreous opacities, unspecified eye; Translations: [Other vitreous opacities] 01-21-2023 Chronic Other eye disorders (1 source) Complete obstruction of lacrimal canaliculus ; Translations: [Full-term infant] 03-31-2023 Episodic Other female genital disorders (2 [...] Test Name Value Interpretation Reference Range Facility Hemoglobin A1con 09-03-2025 HbA1c (Bld) [Mass fraction] 5.7 % Normal <=5.6 [facility] Comment on above: Result Comment: Norm al < 5.7 % Prediabetic 5.7 - 6.4 % Diabetic >or= 6.5 % Please note range changes. Performed By: #### L 501.9985 ####[facility] [address] [place], [address] Cardiology Visit Reporton Cardiology Visit Report [facility] [address] [place] [address] OFFICE VISIT Date of Service: 09/01/25 MR#: [id number] Acct: [id number] Name: ISAAC RAHMAN Rep #: [id number] : 1960 Provider: HARESH Walls Age/Sex: 65/F Location: [facility] [place] Status: Signed HPI HPI History of Present [...] air Intake Visit Reasons: 1 Y FU Sustainable Communities Designer Required: No Accompanied by: Self Is patient [...] pantoprazole 40 (more content not included)... Normal [facility] Comprehensive Metabolic Prof saray 09-01-2025 Albumin [Mass/Vol] 4.2 g/dL Normal 3.4-4.8 [facility] Comment on above: Performed By: #### L 500.4050, L500.4100 ####[facility] [address] [place], [place], [id number] Albumin/Globulin [Mass ratio] 1.4 {ratio} Normal 0.9-2.4 [facility] Comment on above: Performed By: #### L 500.4050, L500.4100 ####[facility] [address] [place], [address] ALK PHOS 68 U/L Normal 35-104 [facility] Comment on above: Performed By: #### L 500.4050, L500.4100 ####[facility] [address] [place], [address] ALT [Catalytic activity/Vol] 13 U/L Normal <=34 [facility] Comment on above: Performed By: #### L 500.4050, L500.4100 ####[facility] [address] [place], [address] AST [Catalytic activity/Vol] 21 U/L Normal <=31 [facility] Comment on above: Performed By: #### L 500.4050, L500.4100 ####[facility] [address] [place], [address] Bilirubin [Mass/Vol] 0.38 mg/dL Normal 0.00-1.30 [facility] Comment on above: Performed By: #### L 500.4050, L500.4100 ####[facility] [address] [place], [address] BUN/CRE 15.6 RATIO Normal 10-20 [facility] Comment on above: Performed By: #### L 500.4050, L500.4100 ####[facility] [address] [place], [address] Calcium [Mass/Vol] 9.4 mg/dL Normal 7.6-11.0 [facility] Comment on above: Performed By: #### L 500.4050, L500.4100 ####[facility] [address] [place], [address] Chloride [Moles/Vol] 101 mmol/L Normal 98-108 [facility] Comment on above: Performed By: #### L 500.4050, L500.4100 ####[facility] [address] [place], [address] CO2 [Moles/Vol] 29.3 mmol/L Normal 21.0-32.0 [facility] Comment on above: Performed By: #### L 500.4050, L500.4100 ####[facility] [address] [place], [address] Creatinine [Mass/Vol] 0.61 mg/dL Low 0.70-1.20 [facility] Comment on above: Performed By: #### L 500.4050, L500.4100 ####[facility] [address] [place], [address] GAP 11 Normal 5-15 [facility] Comment on above: Performed By: #### L 500.4050, L500.4100 ####[facility] [address] [place], [address] GFR/1.73 sq M.predicted among non-blacks MDRD (S/P/Bld) [Vol rate/Area] 98 mL/min/{1.73_m2} Normal >60 [facility] Comment on above: Result Comment: mL/m in/1.73m2 CKD-EPI Creatinine Equation (2020) Performed By: #### L 500.4050, L500.4100 ####[facility] [address] [place], [address] Globulin (S) [Mass/Vol] 3.0 g/dL Normal 2.2-4.2 [facility] Comment on above: Performed By: #### L 500.4050, L500.4100 ####[facility] [address] [place], [address] Glucose [Mass/Vol] 105 mg/dL High 70-99 [facility] Comment on above: Performed By: #### L 500.4050, L500.4100 ####[facility] [address] [place], [address] Potassium [Moles/Vol] 4.0 mmol/L Normal 3.3-5.1 [facility] Comment on above: Performed By: #### L 500.4050, L500.4100 ####[facility] [address] [place], [address] Sodium [Moles/Vol] 141 mmol/L Normal 133-145 [facility] Comment on above: Performed By: #### L 500.4050, L500.4100 ####[facility] [address] [place], [address] T PROT 7.2 g/dL Normal 5.9-8.4 [facility] Comment on above: Performed By: #### L 500.4050, L500.4100 ####[facility] [address] [place], [address] Urea nitrogen [Mass/Vol] 10 mg/dL Normal 4-19 [facility] Comment on above: Performed By: #### L 500.4050, L500.4100 ####[facility] [address] [place], [address] Lipid Profileon 09-01-2025 CHOL:HDL 4.55 Normal [facility] Comment on above: Performed By: #### L 500.4050, L500.4100 ####[facility] [address] [place], [address] Cholesterol [Mass/Vol] 227 mg/dL High <=200 [facility] Comment on above: Result Comment: Chol esterol level, Desirable <200 mg/dL Borderline high cholesterol 200-239 mg/dL High cholesterol >=240 mg/dL Recommendations of the NCEP Adult Treatment Panel for the following risk-cutoff thresholds for the [place] population. Performed By: #### L 500.4050, L500.4100 ####[facility] [address], [address] Cholesterol in HDL [Mass/Vol] 50 mg/dL Normal [facility] Comment on above: Result Comment: Bethany onal Cholesterol Education Program (NCEP) guidelines: <40 mg/dL: Low HDL-cholesterol (major risk factor for CHD) >= 60 mg/dL: High HDL-cholesterol (negative risk factor for CHD) HDL-cholesterol is affected by a number of factors, e.g. smoking, exercise, hormones, sex and age. Performed By: #### L 500.4050, L500.4100 ####[facility] [address] [place], [address] Cholesterol in LDL [Mass/Vol] 136 mg/dL Normal [facility] Comment on above: Result Comment: Bord kqofpx=161-877 mg/dL Higher Hfvs=278 mg/dL or greater Gant Equation 2020 for LDL-C Performed By: #### L 500.4050, L500.4100 ####[facility] [address] [place], [address] Cholesterol in VLDL [Mass/Vol] 46 mg/dL High 5-40 [facility] Comment on above: Performed By: #### L 500.4050, L500.4100 ####[facility] [address] [place], [address] Triglyceride [Mass/Vol] 229 mg/dL High W [facility] Comment on above: Result Comment: The drugs N-Acetylcysteine and Metamizole may falsely depress this assay. Normal range: <150 mg/dL Borderline High: 150-199 mg/dL High: 200-499 mg/dL Very High: >500 mg/dL Performed By: #### L 500.4050, L500.4100 ####[facility] [address] [place], [address] Internal Medicine Office Vis itocarmen 07-25-2025 Internal Medicine Office Visit [facility] Internal Medicine [facility] [place] [address] [place] [address] OFFICE VISIT Date of Service: 07/26/25 MR#: [id number] Acct: [id number] Name: ISAAC RAHMAN Rep #: [id number] : 1960 Provider: Dr. Andreas gill MD Age/Sex: 65/F Location: [facility] [place] Status: Signed Intake Vital Signs 01/25/25 11:27 [...] room air Intake Visit Reasons: 6 M Sustainable Communities Designer Required: No Is patient in pain?: No [...] want to be on the addictive medications snf. She states that her physicatrist at [facility] no longer takes her insurance but she has not needed the klonipin and will call us if there is any issues and feels she may need a few. Pt needs loratidine, and klorcon refilled for 90 days. Pt states her old gastro dr used to provide klorcon prn for if she has a chrons flare. [facility] Medical History Panic attack Preoperative cardiovascular [...] Pneumonia Oste (more content not included)... Normal [facility] ALLIED HEALTHon 06-18-2025 ALLIED HEALTH HNO ID: [id number] Author: MAIN CARIAS RT(R) Service: Radiology Author [...] PATIENT PRESENTS WITH AN IMPLANTABLE OR ATTACHED SLIVER LAP TENDER: No RADIOLOGY DEPARTMENT: General X-ray: Exam(s) Completed: Chest X-Ray Rib X-Ray: Right PERIPHERAL IV DATA: Not applicable SIGNED BY: RT Vic(R) June 18, 2025 1:51 PM Normal [facility] ED NOTEon 06-18-2025 ED NOTE HNO ID: [id number] Author: ANTHONY BUSTAMANTE RN Service: ? Author Type: Registered Nurse Type: ED Notes Filed: 06/18/2025 14:33 Note Text: D/c instructions reviewed with pt who verbalized understanding. Pt's BP elevated, other vss. Dr. Crane aware. Pt left ED ual and in stable condition Normal [facility] ED NOTE HNO ID: [id number] Author: ANTHONY BUSTAMANTE RN Service: ? Author [...] NOTEon 06-18-2025 ED PROV NOTE HNO ID: [id number] Author: LUBA CRANE MD Service: Emergency Medicine [...] TRANSORAL DIAGNOSTIC 05/22/2020 EGD LAMINECTOMY W/O FFD / VERT SEG LUMBAR 2007 Laminectomy, lumbar PAST [...] ALLERGIES Allergen Reactions Nickel Rash Can't wear "cheap" jewelry Penicillins Intolerance Seasonal Allergies Unknown Tetracycline [...] displaced rib fracture. IMPRESSION: No acute findings. Tipple Oiler: PSCTheresa Transcribe Date/Time: Jun 18 2025 1:55P Dictated by : BONITA NULL MD This examination was interpreted and the report reviewed and electronically signed by: BONITA NULL MD on Jun 18 2025 1:57PM EST [id number] Normal [facility] Gastroenterology Visit Repor ton 06-17-2025 Gastroenterology Visit Report [facility] [address] [place] [address] OFFICE VISIT Date of Service: 06/17/25 MR#: [id number] Acct: [id number] Name: ISAAC RAHMAN Rep #: [id number] : 1960 Provider: Arthur Bull DO Age/Sex: 65/F Location: [facility] [place] Status: Signed Intake Vital Signs 01/25/25 11:27 [...] the past year?: No PFSH Medical History Panic attack Preoperative cardiovascular examination [...] History of cardiac catheterization H/O wrist surgery [place] teeth extracted Previous back surgery History of cholecystectomy History of hysterectomy Hx of section Family History Grandmother Bowel disease Myocardial infarction Hypertension Aunt Bowel disease Ovarian cancer Mother Diabetes High cholesterol CVA (cerebral vascular accident) Father Diabetes Heart disease Thyroid disorder Hypertension High cholesterol Myocardial infarction Grandmother Cancer pancreatic Brother Heart disease Other Anemia Colon cancer (more content not included)... Normal [facility] 12 Lead EKGon 06-13-2025 12 Lead EKG [facility] Cardiovascular Services [address] [place] [address] 12 Lead EKG 06/13/25 1239 MR#: [id number] Acct: [id number] Name: JESSICAISAAC Rep #: [id number] : 1960 65 From: Raoul Castaneda MD [...] Low voltage QRS Borderline ECG Confirmed by RAOUL CASTANEDA MD ([id number]), field map editor MARIA C HEIN ([id number]) on 06/14/2025 8:46:41 AM Referred By: Confirmed By: RAOUL CASTANEDA MD 06/14/25 0846 Date Raoul Castaneda MD CC: Dr. Andreas Buenrostro MD; Dr. Mirella Card MD Signed Normal [facility] Absolute lymphocyte countOrd ered By: Mirella Card on 06-13-2025 Lymphocytes Auto (Unsp spec) [#/Vol] 3.82 10*3/uL 0.83-4.51 [facility] Absolute neutrophil countOrd ered By: Mirella Card on 06-13-2025 Neutrophils (Bld) [#/Vol] 7.4 10*3/uL 2.0-7.7 [facility] Anion gap in Serum or Plasma Ordered By: Mirella Card on 06-13-2025 Anion gap [Moles/Vol] 13 mmol/L 5- [facility] Automated lymphocyte count a s percentage of total leukocytesOrdered By: Mirella Card on 06-13-2025 Lymphocytes/100 WBC Auto (Unsp spec) 31.6 % [facility] BUN/creatinine ratioOrdered By: Mirella Card on 06-13-2025 Urea nitrogen/Creatinine [Mass ratio] 19.1 mg/mg 10- [facility] Basic Metabolic Profile (BMP )on 06-13-2025 BUN/CRE 19.1 RATIO Normal 10-20 [facility] Comment on above: Performed By: #### L 501.4021, L500.2500, L100.0100 #### [facility] [address] [place], [address] Calcium [Mass/Vol] 9.5 mg/dL Normal 7.6-11.0 [facility] Comment on above: Performed By: #### L 501.4021, L500.2500, L100.0100 #### [facility] [address] [place], [address] Chloride [Moles/Vol] 105 mmol/L Normal 98-108 [facility] Comment on above: Performed By: #### L 501.4021, L500.2500, L100.0100 #### [facility] [address] [place], [address] CO2 [Moles/Vol] 21.9 mmol/L Normal 21.0-32.0 [facility] Comment on above: Performed By: #### L 501.4021, L500.2500, L100.0100 #### [facility] [address] [place], [address] Creatinine [Mass/Vol] 0.64 mg/dL Low 0.70-1.20 [facility] Comment on above: Performed By: #### L 501.4021, L500.2500, L100.0100 #### [facility] [address] [place], [address] ECRCL 62.31 ml/min Normal 50-250 [facility] Comment on above: Performed By: #### L 501.4021, L500.2500, L100.0100 #### [facility] [address] [place], [address] GAP 13 Normal 5-15 [facility] Comment on above: Performed By: #### L 501.4021, L500.2500, L100.0100 #### [facility] [address] [place], [address] GFR/1.73 sq M.predicted among non-blacks MDRD (S/P/Bld) [Vol rate/Area] 97 mL/min/{1.73_m2} Normal >60 [facility] Comment on above: Result Comment: mL/m in/1.73m2 CKD-EPI Creatinine Equation (2020) Performed By: #### L 501.4021, L500.2500, L100.0100 #### [facility] [address] [place], [address] Glucose [Mass/Vol] 93 mg/dL Normal 70-99 [facility] Comment on above: Performed By: #### L 501.4021, L500.2500, L100.0100 #### [facility] [address] [place] [place], [address] Potassium [Moles/Vol] 3.9 mmol/L Normal 3.3-5.1 [facility] Comment on above: Result Comment: Hemo lysis present, Results??could be affected. ?? Performed By: #### L 501.4021, L500.2500, L100.0100 #### [facility] [address] [place], [address] Sodium [Moles/Vol] 141 mmol/L Normal 133-145 [facility] Comment on above: Performed By: #### L 501.4021, L500.2500, L100.0100 #### [facility] [address] [place], [address] Urea nitrogen [Mass/Vol] 12 mg/dL Normal 4-19 [facility] Comment on above: Performed By: #### L 501.4021, L500.2500, L100.0100 #### [facility] [address] [place], [address] Basophil percentageOrdered B y: Mirella Card on 06-13-2025 Basophils/100 WBC (Bld) 0.3 % 0-[address] [facility] CBC W/Diff, Automatedon 05-27 Absolute Lymph 3.82 X10 3/uL Normal 0.83-4.51 [facility] Comment on above: Performed By: #### L 100.0100 ####[facility] [address] [place], [address] Absolute Neut 7.4 X10 3/uL Normal 2.0-7.7 [facility] Comment on above: Performed By: #### L 100.0100 ####[facility] [address] [place], [address] Basophils/100 WBC (Bld) 0.3 % Normal 0-[address] [facility] Comment on above: Performed By: #### L 100.0100 ####[facility] [address] [place], [address] Eosinophils/100 WBC (Bld) 1.8 % Normal 0-5 [facility] Comment on above: Performed By: #### L 100.0100 ####[facility] [address] [place], [address] Erythrocyte distribution width (RBC) [Ratio] 11.9 % Normal 11.6-14.6 [facility] Comment on above: Performed By: #### L 100.0100 ####[facility] [address] [place], [address] Hematocrit (Bld) [Volume fraction] 40.5 % Normal 37-47 [facility] Comment on above: Performed By: #### L 100.0100 ####[facility] [address] [place], [address] Hemoglobin (Bld) [Mass/Vol] 13.9 g/dL Normal 12.0-15.0 [facility] Comment on above: Performed By: #### L 100.0100 ####[facility] [address] [place], [address] IG% 0.200 Normal 0.0-0.9 [facility] Comment on above: Result Comment: IG% - Immature Granulocytes (promyelocytes, myelocytes and metamyelocytes) > 1% indicates that a LEFT SHIFT is Present. Performed By: #### L 100.0100 ####[facility] [address] [place], [address] Lymphocytes/100 WBC (Bld) 31.6 % Normal 19-41 [facility] Comment on above: Performed By: #### L 100.0100 ####[facility] [address] [place], [address] MCH (RBC) [Entitic mass] 31.4 pg Normal 27.0-32.0 [facility] Comment on above: Performed By: #### L 100.0100 ####[facility] [address] [place], [address] MCHC (RBC) [Mass/Vol] 34.3 g/dL Normal 32-36 [facility] Comment on above: Performed By: #### L 100.0100 ####[facility] [address] [place], [address] MCV (RBC) [Entitic vol] 91.6 fL Normal 81-99 [facility] Comment on above: Performed By: #### L 100.0100 ####[facility] [address] [place], [address] Monocytes/100 WBC (Bld) 5.3 % Normal 0-[address] [facility] Comment on above: Performed By: #### L 100.0100 ####[facility] [address] [place], [address] Neutrophils/100 WBC (Bld) 60.8 % Normal 47-70 [facility] Comment on above: Performed By: #### L 100.0100 ####[facility] [address] [place], [address] Nucleated RBC (Bld) [#/Vol] 0 10*3/uL Normal 0-5 [facility] Comment on above: Performed By: #### L 100.0100 ####[facility] [address] [place], [address] Platelet mean volume (Bld) [Entitic vol] 9.6 fL Normal 6.2-12.0 [facility] Comment on above: Performed By: #### L 100.0100 ####[facility] [address] [place], [address] Platelets (Bld) [#/Vol] 246 10*3/uL Normal 150-450 [facility] Comment on above: Performed By: #### L 100.0100 ####[facility] [address] [place], [address] RBC (Bld) [#/Vol] 4.42 10*6/uL Normal 4.2-5.4 [facility] Comment on above: Performed By: #### L 100.0100 ####[facility] [address] [place], [address] RDW SD 40.1 fl Normal 35.1-43.9 [facility] Comment on above: Performed By: #### L 100.0100 ####[facility] [address] [place], [address] WBC (Bld) [#/Vol] 12.1 10*3/uL High 4.4-11.0 [facility] Comment on above: Performed By: #### L 100.0100 ####[facility] [address] [place], [address] Absolute Neut Normal 2.0-7.7 [facility] Comment on above: Result Comment: CLOT XIOMARA, SPOKE WITH LORILEI Performed By: #### L 501.4021, L500.2500, L100.0100 #### [facility] [address] [place], [address] HCT Normal 37-47 [facility] Comment on above: Result Comment: CLOT XIOMARA, SPOKE WITH LORILEI Performed By: #### L 501.4021, L500.2500, L100.0100 #### [facility] [address] [place], [address] HGB Normal 12.0-15.0 [facility] Comment on above: Result Comment: CLOT XIOMARA, SPOKE WITH LORILEI Performed By: #### L 501.4021, L500.2500, L100.0100 #### [facility] [address] [place], [address] MCH Normal 27.0-32.0 [facility] Comment on above: Result Comment: CLOT XIOMARA, SPOKE WITH LORILEI Performed By: #### L 501.4021, L500.2500, L100.0100 #### [facility] [address] [place], [address] MCHC Normal 32-36 [facility] Comment on above: Result Comment: CLOT XIOMARA, SPOKE WITH LORILEI Performed By: #### L 501.4021, L500.2500, L100.0100 #### [facility] [address] [place], [address] MCV Normal 81-99 [facility] Comment on above: Result Comment: CLOT XIOMARA, SPOKE WITH LORILEI Performed By: #### L 501.4021, L500.2500, L100.0100 #### [facility] [address] [place], [address] NEUT% Normal 47-70 [facility] Comment on above: Result Comment: CLOT XIOMARA, SPOKE WITH LORILEI Performed By: #### L 501.4021, L500.2500, L100.0100 #### [facility] [address] [place], [address] PLT Normal 150-450 [facility] Comment on above: Result Comment: CLOT XIOMARA, SPOKE WITH LORILEI Performed By: #### L 501.4021, L500.2500, L100.0100 #### [facility] [address] [place], [address] RBC Normal 4.2-5.4 [facility] Comment on above: Result Comment: CLOT XIOMARA, SPOKE WITH LORILEI Performed By: #### L 501.4021, L500.2500, L100.0100 #### [facility] [address] [place], [address] RDW CV Normal 11.6-14.6 [facility] Comment on above: Result Comment: CLOT XIOMARA, SPOKE WITH LORILEI Performed By: #### L 501.4021, L500.2500, L100.0100 #### [facility] [address] [place], [address] RDW SD Normal 35.1-43.9 [facility] Comment on above: Result Comment: CLOT XIOMARA, SPOKE WITH LORILEI Performed By: #### L 501.4021, L500.2500, L100.0100 #### [facility] [address] [place], [address] WBC Normal 4.4-11.0 [facility] Comment on above: Result Comment: CLOT XIOMARA, SPOKE WITH LORILEI Performed By: #### L 501.4021, L500.2500, L100.0100 #### [facility] [address] [place], [address] Carbon dioxide, total [Moles /volume] in Central venous bloodOrdered By: Mirella Card on 08-18-2025 CO2 [Moles/Vol] 21.9 mmol/L 21.0-32.0 [facility] Chest PA and Lateralon 06-13 Chest PA and Lateral [facility] Imaging Services [address] [place] [address] Chest PA and Lateral MR#: [id number] Acct: [id number] Name: ISAAC RAHMAN Rep #: [id number] : 1960 F 65 From: Sher lozano MD PCP: Dr. Andreas Buenrostro MD Status: REG ER Study: Chest PA and Lateral Date of Exam: 06/13/25 Exam# [id number] Ordering Dr: Mirella Card MD PROCEDURE: CHEST [...] Lateral IMPRESSION: NO ACUTE FINDINGS. Reading Location: [facility] CC: Dr. Andreas Buenrostro MD; Dr. Mirella Card MD Tipple Oiler: Signed Normal [facility] Chloride assayOrdered By: Brown Card on 06-13-2025 Chloride [Moles/Vol] 105 mmol/L 98-108 [facility] Emergency Department Summary on 06-13-2025 Emergency Department Summary [facility] Medical Records Department [address] [place] [address] Emergency Department Summary 06/13/25 MR#: [id number] Acct: [id number] Name: ISAAC RAHMAN Rep #: [id number] : 1960 65 From: Mirella Card MD PCP: Dr. Andreas Buenrostro MD Status:REG ER Location: ED HPI History of Present Illness Chief Complaint: Chest Pain Narrative Narrative: Patient is a 65-year-old female presenting emergency department for chest pain. Patient has past medical history of hypertension, dyslipidemia, back problems and Crohn's disease. Patient states that it started on . States that it "twinges" of chest pain. She states they come [...] from her baseline with her Crohn's disease. [facility] Medical History Panic attack Preoperative cardiovascular examination [...] Verified 06/13/25 12:29 Family History ... Normal [facility] Eosinophil percentageOrdered By: Mirella Card on 06-13-2025 Eosinophils/100 WBC (Bld) 1.8 % 0-5 [facility] Erythrocyte distribution wid th ratioOrdered By: Mirella Card on 06-13-2025 Erythrocyte distribution width (RBC) [Ratio] 11.9 % 11.6-14.6 [facility] Erythrocyte distribution wid th standard deviationOrdered By: Mirella Card on 06-13-2025 Erythrocyte distribution width (RBC) [Ratio] 40.1 fl 35.1-43.9 [facility] Glomerular filtration rate ( GFR) estimation/1.73 sq m using serum, plasma, or whole bOrdered By: Mirella Card on 06-13-2025 GFR/1.73 sq M.predicted among non-blacks MDRD (S/P/Bld) [Vol rate/Area] 97 mL/min/{1.73_m2} >60 [facility] Comment on above: mL/min/1.73m2 CKD-EP I Creatinine Equation (2020) Hematocrit Auto (Bld) [Volum e fraction]Ordered By: Mirella Card on 06-13-2025 Hematocrit (Bld) [Volume fraction] 40.5 % 37-47 [facility] Hemoglobin measurementOrdere d By: Mirella Card on 06-13-2025 Hemoglobin (Bld) [Mass/Vol] 13.9 g/dL 12.0-15.0 [facility] Immature granulocytes/100 WB C Auto (Bld)Ordered By: Mirella Card on 06-13-2025 Immature granulocytes/100 WBC (Bld) 0.200 % 0.0-0.9 [facility] Comment on above: IG% - Immature Granu locytes (promyelocytes, myelocytes and metamyelocytes) > 1% indicates that a LEFT SHIFT is Present. Internal Medicine Office Vis nany 06-13-2025 Internal Medicine Office Visit [facility] [address] [place] [address] [place] [address] OFFICE VISIT Date of Service: 06/13/25 MR#: [id number] Acct: [id number] Name: ISAAC RAHMAN Rep #: [id number] : 1960 Provider: Dr. Andreas gill MD Age/Sex: 65/F Location: [facility] Status: Signed Intake Vital Signs 04/11/25 12:54 06/13/25 11:45 Height 5 ft 5 ft Weight: 165 lb BMI 32.2 BP 142/74 H Blood Pressure Location Lt brachial Position Sitting Respiration 16 Pulse 62 Pulse Source Monitor Temp 96.3 F L Temp Source Temporal Pulse Oximetry (%) 97 Oxygen Delivery Method room air Intake Visit Reasons: ACUTE-PAIN BETWEEN SHOULDER BLADES Sustainable Communities Designer Required: No Accompanied by: Self Is patient [...] you fallen in the past year?: No [facility] Medical History (Updated 06/13/25 @ 11:43 by [...] History of cardiac catheterization H/O wrist surgery [place] teeth extracted Previous back surgery History of cholecystectomy History of hysterectomy Hx of section Family History Grandmother Bowel disease Myocardial infarct (more content not included)... Normal [facility] L501.4021on 06-13-2025 Trop T High Sen < 6 Normal <=14 [facility] Comment on above: Performed By: #### L 501.4021, L500.2500, L100.0100 #### [facility] [address] [place], [address] MCV (mean corpuscular volume ) determinationOrdered By: Mirella Card on 06-13-2025 MCV (RBC) [Entitic vol] 91.6 fL 81-[address] [facility] Mean corpuscular hemoglobin (MCH) determinationOrdered By: Mirella Card on 06-13-2025 MCH (RBC) [Entitic mass] 31.4 pg 27.0-32.0 [facility] Mean corpuscular hemoglobin concentration (MCHC) determinationOrdered By: Mirella Card on 06-13-2025 MCHC (RBC) [Mass/Vol] 34.3 g/dL 32-36 [facility] Mean platelet volume determi nationOrdered By: Mirella Card on 06-13-2025 Platelet mean volume (Bld) [Entitic vol] 9.6 fL 6.2-12.0 [facility] Monocyte percentageOrdered B y: Mirella Card on 06-13-2025 Monocytes/100 WBC (Bld) 5.3 % 0-[address] [facility] Neutrophil percentageOrdered By: Mirella Card on 06-13-2025 Neutrophils/100 WBC (Bld) 60.8 % 47-70 [facility] Nucleated red blood cell per centageOrdered By: Mirella Card on 06-13-2025 Nucleated RBC/100 WBC (Bld) [Ratio] 0 % 0-5 [facility] Platelet countOrdered By: Brown Card on 06-13-2025 Platelets (Bld) [#/Vol] 246 10*3/uL 150-450 [facility] Potassium measurement (mass/ volume)Ordered By: Mirella Card on 06-13-2025 Potassium (Unsp spec) [Mass/Vol] 3.9 mmol/L 3.3-5.1 [facility] Comment on above: Hemolysis present, R esults could be affected. RBC Auto (Bld) [#/Vol]Ordere d By: Mirella Card on 06-13-2025 RBC (Bld) [#/Vol] 4.42 10*6/uL 4.2-5.4 [facility] Serum creatinine measurement (mass/volume)Ordered By: Mirella Card on 06-13-2025 Creatinine [Mass/Vol] 0.64 mg/dL Low 0.70-1.20 [facility] Serum glucose measurement (m ass/volume)Ordered By: Mirella Card on 06-13-2025 Glucose [Mass/Vol] 93 mg/dL 70-99 [facility] Serum or plasma calcium lavelle urement (mass/volume)Ordered By: Mirella Card on 06-13-2025 Calcium [Mass/Vol] 9.5 mg/dL 7.6-11.0 [facility] Serum or plasma urea nitroge n measurement (mass/volume)Ordered By: Mirella Card on 06-13-2025 Urea nitrogen [Mass/Vol] 12 mg/dL 4-19 [facility] Sodium levelOrdered By: Paul Card on 06-13-2025 Sodium [Moles/Vol] 141 mmol/L 133-145 [facility] Troponin T HS 2 HRon 025 Trop T High Sen < 6 Normal <=14 [facility] Comment on above: Performed By: #### L 499.0042 ####[facility] [address] [place], [place], [address] Troponin T HS 4 HRon 025 Trop T High Sen Normal <=14 [facility] Comment on above: Result Comment: Canc elled via OM: Order cancelled - Patient discharged Performed By: #### L 499.0043 ####[facility] [address] [place], [place], [address] Troponin T.cardiac [Mass/vol ume] in Serum or Plasma by High sensitivity methodOrdered By: Mirella Card on 06-13-2025 Troponin T.cardiac High sensitivity method [Mass/Vol] < 6 ng/L <14 [facility] Troponin T.cardiac High sensitivity method [Mass/Vol] < 6 ng/L <14 [facility] White blood cell (WBC) count Ordered By: Mirella Card on 06-13-2025 WBC (Bld) [#/Vol] 12.1 10*3/uL High 4.4-11.0 [facility] CNOVon 04-22-2025 CNOV Office Visit (DEMI ) ----- ISAAC RAHMAN ([id number]) 1960 F Date Time Provider Department 04/22/25 [...] PA-C Department of Orthopaedics Orthopaedics [address] [facility] [address] Dept: [phone] Dept April 22, 2025 CHIEF COMPLAINT: Pain of the Left Knee and Pain of the Right Knee Bilateral Knee Pain and Swelling/Osteoarthritis: - Onset of increased pain and swelling in bilateral knees x2-3 weeks. - Describes knees as "acting up" and swollen. - Aggravated by prolonged standing and activity. - Reports a sensation of "something slip" in the left knee when exiting her [...] of C. diff infection. - Follow-up with padder cushion Dr. Bull scheduled for May. Social History: - Significant other has bladder cancer, requiring frequent trips to [facility] for treatment. - Recently lost her mother [...] Exam: fle (more content not included)... Normal [facility] Large Joint Arthro/Inj: bila teral knee jointson [...] these instructions. Informed Consent Consent Obtained: Verbal [place] Protocol A moment to CARE was completed. [...] the bedside nurse for hospitalized patients) applicable. [facility] XR KNEE 4V AP/PA/LAT/MERCH B [facility] 04-22-2025 XR KNEE 4V AP/PA/LAT/MERCH THOMAS * [...] IMPRESSION: Bilateral osteoarthrosis, showing some interval progression Tipple Oiler: [facility] Transcribe Date/Time: Apr 27 2025 4:28P Dictated by : JOHN SANCHEZ MD This examination was interpreted and the report reviewed and electronically signed by: JOHN SANCHEZ MD on Apr 27 2025 4:30PM EST [id number] Normal [facility] Internal Medicine Office Vis iton 04-09-2025 Internal Medicine Office Visit [facility] [address] [place] [address] [place] [address] OFFICE VISIT Date of Service: 04/11/25 MR#: [id number] Acct: [id number] Name: ISAAC RAHMAN Rep #: [id number] : 1960 Provider: Dr. Andreas gill MD Age/Sex: 64/F Location: [facility] Status: Signed Intake Vital Signs 01/25/25 11:27 [...] Blood pressure remains elevated, pt remains anxious,tearful [facility] Medical History Preoperative cardiovascular examination Abnormal [...] hemorrhoids Hypothyroidi (more content not included)... Normal [facility] Abdomen Single Viewon 2024 Abdomen Single View [facility] Imaging Services [address] [place] [id number] Abdomen Single View MR#: [id number] Acct: [id number] Name: ISAAC RAHMAN Rep #: [id number] : 1960 F 64 From: Venkat Neal MD PCP: Dr. Andreas Buenrostro MD Status: REG CLI Study: Abdomen Single View Date of Exam: 04/08/25 Exam# [id number] Ordering Dr: Arthur Bull DO EXAM: XR Abdomen, 1 View CLINICAL INDICATION: ABDOMINAL PAIN TECHNIQUE: Frontal supine view of the abdomen/pelvis. COMPARISON: No relevant prior studies available. FINDINGS: GASTROINTESTINAL TRACT: Fecal retention in the colon consistent with constipation. No dilation. BONES/JOINTS: Unremarkable. No acute fracture. RAD/Abdomen Single View IMPRESSION: Fecal retention in the colon consistent with constipation. Reading Location: [facility] CC: Dr. Andreas Buenrostro MD; Arthur Bull DO Tipple Oiler: Signed Normal [facility] Absolute lymphocyte countOrd ered By: Arthur Bull on 04-08-2025 Lymphocytes Auto (Unsp spec) [#/Vol] 4.02 10*3/uL 0.83-4.51 [facility] Absolute neutrophil countOrd ered By: Arthurcarmen Bull on 04-08-2025 Neutrophils (Bld) [#/Vol] 6.2 10*3/uL 2.0-7.7 [facility] Anion gap in Serum or Plasma Ordered By: Arthurravi Bull on 04-08-2025 Anion gap [Moles/Vol] 13 mmol/L 5-15 [facility] Automated lymphocyte count a s percentage of total leukocytesOrdered By: Arthur Bull on 04-08-2025 Lymphocytes/100 WBC Auto (Unsp spec) 35.9 % 19-41 [facility] BUN/creatinine ratioOrdered By: Arthurcarmen Bull on 04-08-2025 Urea nitrogen/Creatinine [Mass ratio] 19.7 mg/mg 10-20 [facility] Basophil percentageOrdered B y: Arthur Bull on 04-08-2025 Basophils/100 WBC (Bld) 0.4 % 0-[address] [facility] Bilirubin, totalOrdered By: Arthur Bull on 04-08-2025 Bilirubin [Mass/Vol] 0.35 mg/dL 0.00-1.30 [facility] CBC W/Diff, Automatedon 03-27 Absolute Lymph 4.02 X10 3/uL Normal 0.83-4.51 [facility] Comment on above: Performed By: #### L 100.0100, L500.4050, L501.6710, L101.9900, L504.2610 #### [facility] [address] [place], [address] Absolute Neut 6.2 X10 3/uL Normal 2.0-7.7 [facility] Comment on above: Performed By: #### L 100.0100, L500.4050, L501.6710, L101.9900, L504.2610 #### [facility] [address] [place], [address] Basophils/100 WBC (Bld) 0.4 % Normal 0-[address] [facility] Comment on above: Performed By: #### L 100.0100, L500.4050, L501.6710, L101.9900, L504.2610 #### [facility] [address] [place], [address] Eosinophils/100 WBC (Bld) 3.1 % Normal 0-5 [facility] Comment on above: Performed By: #### L 100.0100, L500.4050, L501.6710, L101.9900, L504.2610 #### [facility] [address] [place], [address] Erythrocyte distribution width (RBC) [Ratio] 11.9 % Normal 11.6-14.6 [facility] Comment on above: Performed By: #### L 100.0100, L500.4050, L501.6710, L101.9900, L504.2610 #### [facility] [address] [place], [address] Hematocrit (Bld) [Volume fraction] 39.7 % Normal 37-47 [facility] Comment on above: Performed By: #### L 100.0100, L500.4050, L501.6710, L101.9900, L504.2610 #### [facility] [address] [place], [address] Hemoglobin (Bld) [Mass/Vol] 13.7 g/dL Normal 12.0-15.0 [facility] Comment on above: Performed By: #### L 100.0100, L500.4050, L501.6710, L101.9900, L504.2610 #### [facility] [address] [place], [address] IG% 0.300 Normal 0.0-0.9 [facility] Comment on above: Result Comment: IG% - Immature Granulocytes (promyelocytes, myelocytes and metamyelocytes) > 1% indicates that a LEFT SHIFT is Present. Performed By: #### L 100.0100, L500.4050, L501.6710, L101.9900, L504.2610 #### [facility] [address] [place], [address] Lymphocytes/100 WBC (Bld) 35.9 % Normal 19-41 [facility] Comment on above: Performed By: #### L 100.0100, L500.4050, L501.6710, L101.9900, L504.2610 #### [facility] [address] [place], [address] MCH (RBC) [Entitic mass] 31.5 pg Normal 27.0-32.0 [facility] Comment on above: Performed By: #### L 100.0100, L500.4050, L501.6710, L101.9900, L504.2610 #### [facility] [address] [place], [address] MCHC (RBC) [Mass/Vol] 34.5 g/dL Normal 32-36 [facility] Comment on above: Performed By: #### L 100.0100, L500.4050, L501.6710, L101.9900, L504.2610 #### [facility] [address] [place], [address] MCV (RBC) [Entitic vol] 91.3 fL Normal 81-[address] [facility] Comment on above: Performed By: #### L 100.0100, L500.4050, L501.6710, L101.9900, L504.2610 #### [facility] [address] [place], [address] Monocytes/100 WBC (Bld) 5.1 % Normal 0-[address] [facility] Comment on above: Performed By: #### L 100.0100, L500.4050, L501.6710, L101.9900, L504.2610 #### [facility] [address] [place], [address] Neutrophils/100 WBC (Bld) 55.2 % Normal 47-70 [facility] Comment on above: Performed By: #### L 100.0100, L500.4050, L501.6710, L101.9900, L504.2610 #### [facility] [address] [place], [address] Nucleated RBC (Bld) [#/Vol] 0 10*3/uL Normal 0-5 [facility] Comment on above: Performed By: #### L 100.0100, L500.4050, L501.6710, L101.9900, L504.2610 #### [facility] [address] [place], [address] Platelet mean volume (Bld) [Entitic vol] 10.3 fL Normal 6.2-12.0 [facility] Comment on above: Performed By: #### L 100.0100, L500.4050, L501.6710, L101.9900, L504.2610 #### [facility] [address] [place], [address] Platelets (Bld) [#/Vol] 306 10*3/uL Normal 150-450 [facility] Comment on above: Performed By: #### L 100.0100, L500.4050, L501.6710, L101.9900, L504.2610 #### [facility] [address] [place], [address] RBC (Bld) [#/Vol] 4.35 10*6/uL Normal 4.2-5.4 [facility] Comment on above: Performed By: #### L 100.0100, L500.4050, L501.6710, L101.9900, L504.2610 #### [facility] [address] [place], [address] RDW SD 39.8 fl Normal 35.1-43.9 [facility] Comment on above: Performed By: #### L 100.0100, L500.4050, L501.6710, L101.9900, L504.2610 #### [facility] [address] [place], [address] WBC (Bld) [#/Vol] 11.2 10*3/uL High 4.4-11.0 [facility] Comment on above: Performed By: #### L 100.0100, L500.4050, L501.6710, L101.9900, L504.2610 #### [facility] [address] [place], [address] CRPon 04-08-2025 C-REACTIVE PROT < 3.00 Normal 0.0-3.0 [facility] Comment on above: Performed By: #### L 100.0100, L500.4050, L501.6710, L101.9900, L504.2610 ####[facility] [address] [place], [address] Carbon dioxide, total [Moles /volume] in Central venous bloodOrdered By: Arthur Bull on 04-08-2025 CO2 [Moles/Vol] 23.6 mmol/L 21.0-32.0 [facility] Chloride assayOrdered By: Ra edward Bull on 04-08-2025 Chloride [Moles/Vol] 103 mmol/L 98-108 [facility] Comprehensive Metabolic Prof ilon 04-08-2025 Albumin [Mass/Vol] 4.3 g/dL Normal 3.4-4.8 [facility] Comment on above: Performed By: #### L 100.0100, L500.4050, L501.6710, L101.9900, L504.2610 #### [facility] [address] [place], [address] Albumin/Globulin [Mass ratio] 1.5 {ratio} Normal 0.9-2.4 [facility] Comment on above: Performed By: #### L 100.0100, L500.4050, L501.6710, L101.9900, L504.2610 #### [facility] [address] [place], [address] ALK PHOS 68 U/L Normal 35-104 [facility] Comment on above: Performed By: #### L 100.0100, L500.4050, L501.6710, L101.9900, L504.2610 #### [facility] [address] [place], [address] ALT [Catalytic activity/Vol] 16 U/L Normal <=34 [facility] Comment on above: Performed By: #### L 100.0100, L500.4050, L501.6710, L101.9900, L504.2610 #### [facility] [address] [place], [address] AST [Catalytic activity/Vol] 18 U/L Normal <=31 [facility] Comment on above: Performed By: #### L 100.0100, L500.4050, L501.6710, L101.9900, L504.2610 #### [facility] [address] [place], [address] Bilirubin [Mass/Vol] 0.35 mg/dL Normal 0.00-1.30 [facility] Comment on above: Performed By: #### L 100.0100, L500.4050, L501.6710, L101.9900, L504.2610 #### [facility] [address] [place], [address] BUN/CRE 19.7 RATIO Normal 10-20 [facility] Comment on above: Performed By: #### L 100.0100, L500.4050, L501.6710, L101.9900, L504.2610 #### [facility] [address] [place], [address] Calcium [Mass/Vol] 9.2 mg/dL Normal 7.6-11.0 [facility] Comment on above: Performed By: #### L 100.0100, L500.4050, L501.6710, L101.9900, L504.2610 #### [facility] [address] [place], [address] Chloride [Moles/Vol] 103 mmol/L Normal 98-108 [facility] Comment on above: Performed By: #### L 100.0100, L500.4050, L501.6710, L101.9900, L504.2610 #### [facility] [address] [place], [address] CO2 [Moles/Vol] 23.6 mmol/L Normal 21.0-32.0 [facility] Comment on above: Performed By: #### L 100.0100, L500.4050, L501.6710, L101.9900, L504.2610 #### [facility] [address] [place], [address] Creatinine [Mass/Vol] 0.63 mg/dL Low 0.70-1.20 [facility] Comment on above: Performed By: #### L 100.0100, L500.4050, L501.6710, L101.9900, L504.2610 #### [facility] [address] [place], [address] GAP 13 Normal 5-15 [facility] Comment on above: Performed By: #### L 100.0100, L500.4050, L501.6710, L101.9900, L504.2610 #### [facility] [address] [place], [address] GFR/1.73 sq M.predicted among non-blacks MDRD (S/P/Bld) [Vol rate/Area] 98 mL/min/{1.73_m2} Normal >60 [facility] Comment on above: Result Comment: mL/m in/1.73m2 CKD-EPI Creatinine Equation (2020) Performed By: #### L 100.0100, L500.4050, L501.6710, L101.9900, L504.2610 #### [facility] [address] [place], [address] Globulin (S) [Mass/Vol] 2.9 g/dL Normal 2.2-4.2 [facility] Comment on above: Performed By: #### L 100.0100, L500.4050, L501.6710, L101.9900, L504.2610 #### [facility] [address] [place], [address] Glucose [Mass/Vol] 104 mg/dL High 70-99 [facility] Comment on above: Performed By: #### L 100.0100, L500.4050, L501.6710, L101.9900, L504.2610 #### [facility] [address] [place], [address] Potassium [Moles/Vol] 4.0 mmol/L Normal 3.3-5.1 [facility] Comment on above: Performed By: #### L 100.0100, L500.4050, L501.6710, L101.9900, L504.2610 #### [facility] [address] [place], [address] Sodium [Moles/Vol] 140 mmol/L Normal 133-145 [facility] Comment on above: Performed By: #### L 100.0100, L500.4050, L501.6710, L101.9900, L504.2610 #### [facility] [address] [place], [address] T PROT 7.2 g/dL Normal 5.9-8.4 [facility] Comment on above: Performed By: #### L 100.0100, L500.4050, L501.6710, L101.9900, L504.2610 #### [facility] [address] [place], [address] Urea nitrogen [Mass/Vol] 13 mg/dL Normal 4-19 [facility] Comment on above: Performed By: #### L 100.0100, L500.4050, L501.6710, L101.9900, L504.2610 #### [facility] [address] [place], [address] Eosinophil percentageOrdered By: Arthur Bull on 04-08-2025 Eosinophils/100 WBC (Bld) 3.1 % 0-5 [facility] Erythrocyte Sed Rateon 04-08 SED RATE 14 mm/hr Normal 0-30 [facility] Comment on above: Performed By: #### L 100.0100, L500.4050, L501.6710, L101.9900, L504.2610 #### [facility] [address] [place], [address] Erythrocyte distribution wid th ratioOrdered By: Arthur Bull on 04-08-2025 Erythrocyte distribution width (RBC) [Ratio] 11.9 % 11.6-14.6 [facility] Erythrocyte distribution wid th standard deviationOrdered By: Arthur Bull on 04-08-2025 Erythrocyte distribution width (RBC) [Ratio] 39.8 fl 35.1-43.9 [facility] Erythrocyte sedimentation ra teOrdered By: Arthur Bull on 04-08-2025 ESR (Bld) [Velocity] 14 mm/h 0-30 [facility] Glomerular filtration rate ( GFR) estimation/1.73 sq m using serum, plasma, or whole bOrdered By: Arthur Bull on 04-08-2025 GFR/1.73 sq M.predicted among non-blacks MDRD (S/P/Bld) [Vol rate/Area] 98 mL/min/{1.73_m2} >60 [facility] Comment on above: mL/min/1.73m2 CKD-EP I Creatinine Equation (2020) Hematocrit Auto (Bld) [Volum e fraction]Ordered By: Arthur Bull on 04-08-2025 Hematocrit (Bld) [Volume fraction] 39.7 % 37-47 [facility] Hemoglobin measurementOrdere d By: Arthur Bull on 04-08-2025 Hemoglobin (Bld) [Mass/Vol] 13.7 g/dL 12.0-15.0 [facility] Immature granulocytes/100 WB C Auto (Bld)Ordered By: Arthur Bull on 04-08-2025 Immature granulocytes/100 WBC (Bld) 0.300 % 0.0-0.9 [facility] Comment on above: IG% - Immature Granu locytes (promyelocytes, myelocytes and metamyelocytes) > 1% indicates that a LEFT SHIFT is Present. LDHon 04-08-2025 LDH 158 U/L Normal 84-246 [facility] Comment on above: Order Comment: 1 Performed By: #### L 100.0100, L500.4050, L501.6710, L101.9900, L504.2610 ####[facility] [address] [place], [place], [id number] Laboratory - Chemistry and C hemistry - challengeOrdered By: Arthur Bull on 04-08-2025 AST [Catalytic activity/Vol] 18 U/L <32 [facility] Lactate dehydrogenase (LDH) measurementOrdered By: Arthur Bull on 04-08-2025 LDH [Catalytic activity/Vol] 158 U/L 84-246 [facility] MCV (mean corpuscular volume ) determinationOrdered By: Arthur Bull on 04-08-2025 MCV (RBC) [Entitic vol] 91.3 fL 81-[address] [facility] Mean corpuscular hemoglobin (MCH) determinationOrdered By: Arthur Bull on 04-08-2025 MCH (RBC) [Entitic mass] 31.5 pg 27.0-32.0 [facility] Mean corpuscular hemoglobin concentration (MCHC) determinationOrdered By: Arthur Bull on 04-08-2025 MCHC (RBC) [Mass/Vol] 34.5 g/dL 32-36 [facility] Mean platelet volume determi nationOrdered By: Arthur Bull on 04-08-2025 Platelet mean volume (Bld) [Entitic vol] 10.3 fL 6.2-12.0 [facility] Monocyte percentageOrdered B y: Arthur Bull on 04-08-2025 Monocytes/100 WBC (Bld) 5.1 % 0-[address] [facility] Neutrophil percentageOrdered By: Arthur Bull on 04-08-2025 Neutrophils/100 WBC (Bld) 55.2 % 47-70 [facility] Nucleated red blood cell per centageOrdered By: Arthur Bull on 04-08-2025 Nucleated RBC/100 WBC (Bld) [Ratio] 0 % 0-5 [facility] Platelet countOrdered By: Ra edward Bull on 04-08-2025 Platelets (Bld) [#/Vol] 306 10*3/uL 150-450 [facility] Potassium measurement (mass/ volume)Ordered By: Arthur Bull on 04-08-2025 Potassium (Unsp spec) [Mass/Vol] 4.0 mmol/L 3.3-5.1 [facility] RBC Auto (Bld) [#/Vol]Ordere d By: Arthur Bull on 04-08-2025 RBC (Bld) [#/Vol] 4.35 10*6/uL 4.2-5.4 [facility] Serum creatinine measurement (mass/volume)Ordered By: Arthur Bull on 04-08-2025 Creatinine [Mass/Vol] 0.63 mg/dL Low 0.70-1.20 [facility] Serum globulin measurementOr dered By: Arthur Bull on 04-08-2025 Globulin (S) [Mass/Vol] 2.9 g/dL 2.2-4.[address] [facility] Serum glucose measurement (m ass/volume)Ordered By: Arthur Bull on 04-08-2025 Glucose [Mass/Vol] 104 mg/dL High 70-99 [facility] Serum or plasma C reactive p rotein measurement (mass/volume)Ordered By: Arthur Bull on 04-08-2025 CRP [Mass/Vol] mg/L 0.0-3.0 [facility] Serum or plasma alanine alvarez otransferase (ALT) measurementOrdered By: Arthur Bull on 04-08-2025 ALT [Catalytic activity/Vol] 16 U/L <35 [facility] Serum or plasma albumin lavelle urement (mass/volume)Ordered By: Arthur Bull on 04-08-2025 Albumin [Mass/Vol] 4.3 g/dL 3.4-4.8 [facility] Serum or plasma albumin/glob ulin mass ratioOrdered By: Arthur Bull on 04-08-2025 Albumin/Globulin [Mass ratio] 1.5 {ratio} 0.9-2.4 [facility] Serum or plasma alkaline veronika sphatase measurementOrdered By: Arthur Bull on 04-08-2025 ALP [Catalytic activity/Vol] 68 U/L 35-104 [facility] Serum or plasma calcium lavelle urement (mass/volume)Ordered By: Arthur Bull on 04-08-2025 Calcium [Mass/Vol] 9.2 mg/dL 7.6-11.0 [facility] Serum or plasma urea nitroge n measurement (mass/volume)Ordered By: Arthur Bull on 04-08-2025 Urea nitrogen [Mass/Vol] 13 mg/dL 4-19 [facility] Sodium levelOrdered By: Gael mortoncarmen Bull on 04-08-2025 Sodium [Moles/Vol] 140 mmol/L 133-145 [facility] Total proteinOrdered By: Steve postcarmen Bull on 04-08-2025 Protein [Mass/Vol] 7.2 g/dL 5.9-8.4 [facility] White blood cell (WBC) count Ordered By: Arthur Bull on 04-08-2025 WBC (Bld) [#/Vol] 11.2 10*3/uL High 4.4-11.0 [facility] Absolute lymphocyte countOrd ered By: Arthurravi Bull on 02-14-2025 Lymphocytes Auto (Unsp spec) [#/Vol] 2.97 10*3/uL 0.83-4.51 [facility] Absolute neutrophil countOrd ered By: Arthurravi Bull on 02-14-2025 Neutrophils (Bld) [#/Vol] 7.4 10*3/uL 2.0-7.7 [facility] Amylaseon 02-14-2025 MARI 50 U/L Normal 28-100 [facility] Comment on above: Performed By: #### L 501.2450, L501.2400, L101.9900, L500.4050, L100.0100, L501.6710 ####[facility] [address] [place], [address] Anion gap in Serum or Plasma Ordered By: Arthur Bull on 02-14-2025 Anion gap [Moles/Vol] 12 mmol/L 5-15 [facility] Automated lymphocyte count a s percentage of total leukocytesOrdered By: Arthur Bull on 02-14-2025 Lymphocytes/100 WBC Auto (Unsp spec) 26.7 % 19-41 [facility] BUN/creatinine ratioOrdered By: Arthurravi Bull on 02-14-2025 Urea nitrogen/Creatinine [Mass ratio] 21.8 mg/mg High 10-20 [facility] Basophil percentageOrdered B y: Arthur Bull on 02-14-2025 Basophils/100 WBC (Bld) 0.4 % 0-[address] [facility] Bilirubin, totalOrdered By: Arthur Bull on 02-14-2025 Bilirubin [Mass/Vol] 0.59 mg/dL 0.00-1.30 [facility] CBC W/Diff, Automatedon 01-26 Absolute Lymph 2.97 X10 3/uL Normal 0.83-4.51 [facility] Comment on above: Performed By: #### L 501.2450, L501.2400, L101.9900, L500.4050, L100.0100, L501.6710 ####[facility] [address] [place], [address] Absolute Neut 7.4 X10 3/uL Normal 2.0-7.7 [facility] Comment on above: Performed By: #### L 501.2450, L501.2400, L101.9900, L500.4050, L100.0100, L501.6710 ####[facility] [address] [place], [address] Basophils/100 WBC (Bld) 0.4 % Normal 0-[address] [facility] Comment on above: Performed By: #### L 501.2450, L501.2400, L101.9900, L500.4050, L100.0100, L501.6710 ####[facility] [address] [place], [address] Eosinophils/100 WBC (Bld) 1.4 % Normal 0-5 [facility] Comment on above: Performed By: #### L 501.2450, L501.2400, L101.9900, L500.4050, L100.0100, L501.6710 ####[facility] [address] [place], [address] Erythrocyte distribution width (RBC) [Ratio] 11.5 % Low 11.6-14.6 [facility] Comment on above: Performed By: #### L 501.2450, L501.2400, L101.9900, L500.4050, L100.0100, L501.6710 ####[facility] [address] [place], [address] Hematocrit (Bld) [Volume fraction] 42.9 % Normal 37-47 [facility] Comment on above: Performed By: #### L 501.2450, L501.2400, L101.9900, L500.4050, L100.0100, L501.6710 ####[facility] [address] [place], [address] Hemoglobin (Bld) [Mass/Vol] 14.4 g/dL Normal 12.0-15.0 [facility] Comment on above: Performed By: #### L 501.2450, L501.2400, L101.9900, L500.4050, L100.0100, L501.6710 ####[facility] [address] [place], [address] IG% 0.300 Normal 0.0-0.9 [facility] Comment on above: Result Comment: IG% - Immature Granulocytes (promyelocytes, myelocytes and metamyelocytes) > 1% indicates that a LEFT SHIFT is Present. Performed By: #### L 501.2450, L501.2400, L101.9900, L500.4050, L100.0100, L501.6710 ####[facility] [address], [address] Lymphocytes/100 WBC (Bld) 26.7 % Normal 19-41 [facility] Comment on above: Performed By: #### L 501.2450, L501.2400, L101.9900, L500.4050, L100.0100, L501.6710 ####[facility] [address] [place], [address] MCH (RBC) [Entitic mass] 31.1 pg Normal 27.0-32.0 [facility] Comment on above: Performed By: #### L 501.2450, L501.2400, L101.9900, L500.4050, L100.0100, L501.6710 ####[facility] [address] [place], [address] MCHC (RBC) [Mass/Vol] 33.6 g/dL Normal 32-36 [facility] Comment on above: Performed By: #### L 501.2450, L501.2400, L101.9900, L500.4050, L100.0100, L501.6710 ####[facility] [address] [place], [address] MCV (RBC) [Entitic vol] 92.7 fL Normal 81-[address] [facility] Comment on above: Performed By: #### L 501.2450, L501.2400, L101.9900, L500.4050, L100.0100, L501.6710 ####[facility] [address] [place], [address] Monocytes/100 WBC (Bld) 4.8 % Normal 0-10 [facility] Comment on above: Performed By: #### L 501.2450, L501.2400, L101.9900, L500.4050, L100.0100, L501.6710 ####[facility] [address] [place], [address] Neutrophils/100 WBC (Bld) 66.4 % Normal 47-70 [facility] Comment on above: Performed By: #### L 501.2450, L501.2400, L101.9900, L500.4050, L100.0100, L501.6710 ####[facility] [address] [place], [address] Nucleated RBC (Bld) [#/Vol] 0 10*3/uL Normal 0-5 [facility] Comment on above: Performed By: #### L 501.2450, L501.2400, L101.9900, L500.4050, L100.0100, L501.6710 ####[facility] [address] [place], [address] Platelet mean volume (Bld) [Entitic vol] 10.1 fL Normal 6.2-12.0 [facility] Comment on above: Performed By: #### L 501.2450, L501.2400, L101.9900, L500.4050, L100.0100, L501.6710 ####[facility] [address] [place], [address] Platelets (Bld) [#/Vol] 270 10*3/uL Normal 150-450 [facility] Comment on above: Performed By: #### L 501.2450, L501.2400, L101.9900, L500.4050, L100.0100, L501.6710 ####[facility] [address] [place], [address] RBC (Bld) [#/Vol] 4.63 10*6/uL Normal 4.2-5.4 [facility] Comment on above: Performed By: #### L 501.2450, L501.2400, L101.9900, L500.4050, L100.0100, L501.6710 ####[facility] [address] [place], [address] RDW SD 39.2 fl Normal 35.1-43.9 [facility] Comment on above: Performed By: #### L 501.2450, L501.2400, L101.9900, L500.4050, L100.0100, L501.6710 ####[facility] [address] [place], [address] WBC (Bld) [#/Vol] 11.1 10*3/uL High 4.4-11.0 [facility] Comment on above: Performed By: #### L 501.2450, L501.2400, L101.9900, L500.4050, L100.0100, L501.6710 ####[facility] [address] [place], [address] CRPon 02-14-2025 C-REACTIVE PROT < 3.00 Normal 0.0-3.0 [facility] Comment on above: Performed By: #### L 501.2450, L501.2400, L101.9900, L500.4050, L100.0100, L501.6710 ####[facility] [address] [place], [address] Carbon dioxide, total [Moles /volume] in Central venous bloodOrdered By: Arthur Bull on 02-14-2025 CO2 [Moles/Vol] 24.1 mmol/L 21.0-32.0 [facility] Chloride assayOrdered By: Ra edward Bull on 02-14-2025 Chloride [Moles/Vol] 102 mmol/L 98-108 [facility] Comprehensive Metabolic Prof ilon 02-14-2025 Albumin [Mass/Vol] 4.5 g/dL Normal 3.4-4.8 [facility] Comment on above: Performed By: #### L 501.2450, L501.2400, L101.9900, L500.4050, L100.0100, L501.6710 ####[facility] [address] [place], [address] Albumin/Globulin [Mass ratio] 1.4 {ratio} Normal 0.9-2.4 [facility] Comment on above: Performed By: #### L 501.2450, L501.2400, L101.9900, L500.4050, L100.0100, L501.6710 ####[facility] [address] [place], [address] ALK PHOS 80 U/L Normal 35-104 [facility] Comment on above: Performed By: #### L 501.2450, L501.2400, L101.9900, L500.4050, L100.0100, L501.6710 ####[facility] [address] [place], [address] ALT [Catalytic activity/Vol] 17 U/L Normal <=34 [facility] Comment on above: Performed By: #### L 501.2450, L501.2400, L101.9900, L500.4050, L100.0100, L501.6710 ####[facility] [address] [place], [address] AST [Catalytic activity/Vol] 20 U/L Normal <=31 [facility] Comment on above: Performed By: #### L 501.2450, L501.2400, L101.9900, L500.4050, L100.0100, L501.6710 ####[facility] [address] [place], [address] Bilirubin [Mass/Vol] 0.59 mg/dL Normal 0.00-1.30 [facility] Comment on above: Performed By: #### L 501.2450, L501.2400, L101.9900, L500.4050, L100.0100, L501.6710 ####[facility] [address] [place], [address] BUN/CRE 21.8 RATIO High 10-20 [facility] Comment on above: Performed By: #### L 501.2450, L501.2400, L101.9900, L500.4050, L100.0100, L501.6710 ####[facility] [address] [place], [address] Calcium [Mass/Vol] 9.5 mg/dL Normal 7.6-11.0 [facility] Comment on above: Performed By: #### L 501.2450, L501.2400, L101.9900, L500.4050, L100.0100, L501.6710 ####[facility] [address] [place], [address] Chloride [Moles/Vol] 102 mmol/L Normal 98-108 [facility] Comment on above: Performed By: #### L 501.2450, L501.2400, L101.9900, L500.4050, L100.0100, L501.6710 ####[facility] [address] [place], [address] CO2 [Moles/Vol] 24.1 mmol/L Normal 21.0-32.0 [facility] Comment on above: Performed By: #### L 501.2450, L501.2400, L101.9900, L500.4050, L100.0100, L501.6710 ####[facility] [address] [place], [address] Creatinine [Mass/Vol] 0.66 mg/dL Low 0.70-1.20 [facility] Comment on above: Performed By: #### L 501.2450, L501.2400, L101.9900, L500.4050, L100.0100, L501.6710 ####[facility] [address] [place], [address] GAP 12 Normal 5-15 [facility] Comment on above: Performed By: #### L 501.2450, L501.2400, L101.9900, L500.4050, L100.0100, L501.6710 ####[facility] [address] [place], [address] GFR/1.73 sq M.predicted among non-blacks MDRD (S/P/Bld) [Vol rate/Area] 97 mL/min/{1.73_m2} Normal >60 [facility] Comment on above: Result Comment: mL/m in/1.73m2 CKD-EPI Creatinine Equation (2020) Performed By: #### L 501.2450, L501.2400, L101.9900, L500.4050, L100.0100, L501.6710 ####[facility] [address] [place], [address] Globulin (S) [Mass/Vol] 3.3 g/dL Normal 2.2-4.2 [facility] Comment on above: Performed By: #### L 501.2450, L501.2400, L101.9900, L500.4050, L100.0100, L501.6710 ####[facility] [address] [place], [address] Glucose [Mass/Vol] 125 mg/dL High 70-99 [facility] Comment on above: Performed By: #### L 501.2450, L501.2400, L101.9900, L500.4050, L100.0100, L501.6710 ####[facility] [address] [place], [address] Potassium [Moles/Vol] 3.9 mmol/L Normal 3.3-5.1 [facility] Comment on above: Performed By: #### L 501.2450, L501.2400, L101.9900, L500.4050, L100.0100, L501.6710 ####[facility] [address] [place], [address] Sodium [Moles/Vol] 139 mmol/L Normal 133-145 [facility] Comment on above: Performed By: #### L 501.2450, L501.2400, L101.9900, L500.4050, L100.0100, L501.6710 ####[facility] [address] [place], [address] T PROT 7.8 g/dL Normal 5.9-8.4 [facility] Comment on above: Performed By: #### L 501.2450, L501.2400, L101.9900, L500.4050, L100.0100, L501.6710 ####[facility] [address] [place], [address] Urea nitrogen [Mass/Vol] 14 mg/dL Normal 4-19 [facility] Comment on above: Performed By: #### L 501.2450, L501.2400, L101.9900, L500.4050, L100.0100, L501.6710 ####[facility] [address] [place], [address] Eosinophil percentageOrdered By: Arthur Bull on 02-14-2025 Eosinophils/100 WBC (Bld) 1.4 % 0-5 [facility] Erythrocyte Sed Rateon 02-14 SED RATE 18 mm/hr Normal 0-30 [facility] Comment on above: Performed By: #### L 501.2450, L501.2400, L101.9900, L500.4050, L100.0100, L501.6710 ####[facility] [address] [place], [place], [address] Erythrocyte distribution wid th ratioOrdered By: Arthur Bull on 02-14-2025 Erythrocyte distribution width (RBC) [Ratio] 11.5 % Low 11.6-14.6 [facility] Erythrocyte distribution wid th standard deviationOrdered By: Arthur Bull on 02-14-2025 Erythrocyte distribution width (RBC) [Ratio] 39.2 fl 35.1-43.9 [facility] Erythrocyte sedimentation ra teOrdered By: Arthur Bull on 02-14-2025 ESR (Bld) [Velocity] 18 mm/h 0-30 [facility] Gastroenterology Visit Repor ton 02-14-2025 Gastroenterology Visit Report [facility] [address] [place] [address] OFFICE VISIT Date of Service: 02/14/25 MR#: [id number] Acct: [id number] Name: ISAAC RAHMAN Rep #: [id number] : 1960 Provider: Arthur Bull DO Age/Sex: 64/F Location[place] [facility] [place] Status: Signed Intake Vital Signs 08/06/24 07:28 [...] you fallen in the past year?: No [facility] Medical History (Updated 01/25/25 @ 15:53 by [...] History of cardiac catheterization H/O wrist surgery [place] teeth extracted Previous back surgery History of [...] pancreatic Ot (more content not included)... Normal [facility] Glomerular filtration rate ( GFR) estimation/1.73 sq m using serum, plasma, or whole bOrdered By: Arthur Bull on 02-14-2025 GFR/1.73 sq M.predicted among non-blacks MDRD (S/P/Bld) [Vol rate/Area] 97 mL/min/{1.73_m2} >60 [facility] Comment on above: mL/min/1.73m2 CKD-EP I Creatinine Equation (2020) Hematocrit Auto (Bld) [Volum e fraction]Ordered By: Arthur Bull on 02-14-2025 Hematocrit (Bld) [Volume fraction] 42.9 % 37-47 [facility] Hemoglobin measurementOrdere d By: Arthur Bull on 02-14-2025 Hemoglobin (Bld) [Mass/Vol] 14.4 g/dL 12.0-15.0 [facility] Immature granulocytes/100 WB C Auto (Bld)Ordered By: Arthur Bull on 02-14-2025 Immature granulocytes/100 WBC (Bld) 0.300 % 0.0-0.9 [facility] Comment on above: IG% - Immature Granu locytes (promyelocytes, myelocytes and metamyelocytes) > 1% indicates that a LEFT SHIFT is Present. Laboratory - Chemistry and C hemistry - challengeOrdered By: Arthur Bull on 02-14-2025 AST [Catalytic activity/Vol] 20 U/L <32 [facility] Lipaseon 02-14-2025 Lipase [Catalytic activity/Vol] 36 U/L Normal 13-75 [facility] Comment on above: Result Comment: Cl duval note: LIPASE revised reference range effective 23. New Lipase methodology. Expected to produce lower values than the previous assay method. NEW Reference Range: 13 - 75 U/L Performed By: #### L 501.2450, L501.2400, L101.9900, L500.4050, L100.0100, L501.6710 ####[facility] [address] [place], [address] Lipase measurementOrdered By : Arthur Bull on 02-14-2025 Lipase [Catalytic activity/Vol] 36 U/L 13-75 [facility] Comment on above: Please note:LIPASE r evised reference range effective 23. New Lipase methodology. Expected to produce lower values than the previous assay method. NEW Reference Range: 13 - 75 U/L MCV (mean corpuscular volume ) determinationOrdered By: Arthur Bull on 02-14-2025 MCV (RBC) [Entitic vol] 92.7 fL 81-[address] [facility] Mean corpuscular hemoglobin (MCH) determinationOrdered By: Arthur Bull on 02-14-2025 MCH (RBC) [Entitic mass] 31.1 pg 27.0-32.0 [facility] Mean corpuscular hemoglobin concentration (MCHC) determinationOrdered By: Arthur Bull on 02-14-2025 MCHC (RBC) [Mass/Vol] 33.6 g/dL 32-36 [facility] Mean platelet volume determi nationOrdered By: Arthur Bull on 02-14-2025 Platelet mean volume (Bld) [Entitic vol] 10.1 fL 6.2-12.0 [facility] Monocyte percentageOrdered B y: Arthur Bull on 04-21-2025 Monocytes/100 WBC (Bld) 4.8 % 0-[address] [facility] Neutrophil percentageOrdered By: Arthur Bull on 02-14-2025 Neutrophils/100 WBC (Bld) 66.4 % 47-70 [facility] Nucleated red blood cell per centageOrdered By: Arthur Bull on 02-14-2025 Nucleated RBC/100 WBC (Bld) [Ratio] 0 % 0-5 [facility] Platelet countOrdered By: Ra edward Bull on 02-14-2025 Platelets (Bld) [#/Vol] 270 10*3/uL 150-450 [facility] Potassium measurement (mass/ volume)Ordered By: Arthur Bull on 02-14-2025 Potassium (Unsp spec) [Mass/Vol] 3.9 mmol/L 3.3-5.1 [facility] RBC Auto (Bld) [#/Vol]Ordere d By: Arthur Bull on 02-14-2025 RBC (Bld) [#/Vol] 4.63 10*6/uL 4.2-5.4 [facility] Serum creatinine measurement (mass/volume)Ordered By: Arthur Bull on 02-14-2025 Creatinine [Mass/Vol] 0.66 mg/dL Low 0.70-1.20 [facility] Serum globulin measurementOr dered By: Arthur Bull on 02-14-2025 Globulin (S) [Mass/Vol] 3.3 g/dL 2.2-4.2 [facility] Serum glucose measurement (m ass/volume)Ordered By: Arthur Bull on 02-14-2025 Glucose [Mass/Vol] 125 mg/dL High 70-99 [facility] Serum or plasma C reactive p rotein measurement (mass/volume)Ordered By: Arthur Bull on 02-14-2025 CRP [Mass/Vol] mg/L 0.0-3.0 [facility] Serum or plasma alanine alvarez otransferase (ALT) measurementOrdered By: Arthur Bull on 02-14-2025 ALT [Catalytic activity/Vol] 17 U/L <35 [facility] Serum or plasma albumin lavelle urement (mass/volume)Ordered By: Arthur Bull on 02-14-2025 Albumin [Mass/Vol] 4.5 g/dL 3.4-4.8 [facility] Serum or plasma albumin/glob ulin mass ratioOrdered By: Arthur Bull on 02-14-2025 Albumin/Globulin [Mass ratio] 1.4 {ratio} 0.9-2.4 [facility] Serum or plasma alkaline veronika sphatase measurementOrdered By: Arthur Bull on 02-14-2025 ALP [Catalytic activity/Vol] 80 U/L 35-104 [facility] Serum or plasma amylase lavelle urement (enzymatic activity/volume)Ordered By: Arthur Bull on 02-14-2025 Amylase [Catalytic activity/Vol] 50 U/L 28-100 [facility] Serum or plasma calcium lavelle urement (mass/volume)Ordered By: Arthur Bull on 02-14-2025 Calcium [Mass/Vol] 9.5 mg/dL 7.6-11.0 [facility] Serum or plasma urea nitroge n measurement (mass/volume)Ordered By: Arthur Bull on 02-14-2025 Urea nitrogen [Mass/Vol] 14 mg/dL 4-19 [facility] Sodium levelOrdered By: Gael Bruce on 02-14-2025 Sodium [Moles/Vol] 139 mmol/L 133-145 [facility] Total proteinOrdered By: Steve Bull on 02-14-2025 Protein [Mass/Vol] 7.8 g/dL 5.9-8.4 [facility] White blood cell (WBC) count Ordered By: Arthur Bull on 02-14-2025 WBC (Bld) [#/Vol] 11.1 10*3/uL High 4.4-11.0 [facility] Internal Medicine Office Vis nany 01-24-2025 Internal Medicine Office Visit [facility] [address] [place] [address] [address] [place], [place] [address] OFFICE VISIT Date of Service: 01/25/25 MR#: [id number] Acct: [id number] Name: ISAAC RAHMAN Rep #: [id number] : 1960 Provider: Dr. Andreas gill MD Age/Sex: 64/F Location: [facility] [place] Status: Signed Intake Vital Signs 10/22/24 07:52 01/25/25 11:27 Height 5 ft 5 ft Weight: 173 lb BMI 33.7 BP 158/80 H Blood Pressure Location Lt brachial Position Sitting Respiration 20 H Pulse 63 Pulse Source Monitor Temp 96.6 F L Temp Source Temporal Pulse Oximetry (%) 97 Oxygen Delivery Method room air Intake Visit Reasons: MED DISCUSSION Chief Complaint: discuss medication Sustainable Communities [employer]er Required: No Accompanied by: Self Is patient [...] you fallen in the past year?: No [facility] Medical History (Updated 01/25/25 @ 15:53 by [...] History of cardiac catheterization H/O wrist surgery [place] teeth extracted Previous back surgery History of cholecystectomy History of hysterectomy Hx of section Family History (Updated 01/25/25 @ (more content not included)... Normal [facility] Urgent Care Visit Reporton 1 12-23-2023 Urgent Care Visit Report [facility] [address], [address] [place] [address] OFFICE VISIT Date of Service: 10/22/24 MR#: [id number] Acct: [id number] Name: ISAAC RAHMAN Rep #: [id number] : 1960 Provider: MARQUES britt Age/Sex: 64/F Location: [facility] [place] Status: Signed Intake Vital Signs 09/01/24 11:20 10/22/24 07:52 Height 5 ft 5 ft BP 128/82 H Blood Pressure Location Lt brachial Position Sitting Respiration 15 Pulse 75 Pulse Source NIBP Temp 98.1 F Temp Source Oral Pulse Oximetry (%) 96 Oxygen Delivery Method room air Intake Visit Reasons: SCRATCHY THROAT, CONCERN FOR COVID Chief Complaint: ST, congest, fatigue Sustainable Communities Designer Required: No Is patient in pain?: No Allergies Penicillins (PCN) Allergy (Verified 10/22/24 09:00) Unknown Tetracyclines Adverse Reaction (Verified 10/22/24 09:00) Nausea Is last menstrual period known: No Post menopausal: Yes Patient : No Have you fallen in the past year?: No Nurse's Note: ST, congest, fatigue x 2-3 days. pt flew back from [place], concern for flu/covid. hx crohns, on [place] so concerned about immune system. [facility] Medical History Preoperative cardiovascular examination Abnormal [...] History of cardiac catheterization H/O wrist surgery [place] teeth extracted Previous back surgery History of [...] Chief Complaint: ST, congest, fatigue Details: ISAAC RAHMNA, is a 64 F who presents to the office today for evaluation for 2 day history of sore throat, congestion, headache, ear pressure, and fatigue. Denies any fever, body aches, nausea/vomiting. She recently traveled via airplane to [place]. She has Crohns disease and is on [...] and all (more content not included)... Normal [facility] Basophil percentageOrdered B y: Andreas Porter on 02-05-2024 Potassium [Moles/Vol] 4.0 mmol/L 3.5-5.1 [facility] Basophil percentageOrdered B y: Arthur Bull on 11-17-2023 LDH [Catalytic activity/Vol] 191 U/L 84-246 [facility] Erythrocyte sedimentation ra teOrdered By: Arthur Bull on 11-17-2023 ESR (Bld) [Velocity] 22 mm/h 0-30 [facility] No Panel InformationOrdered By: Arthur Bull on 11-17-2023 Stool Calprotectin 23 ug/g 0-120 [facility] Comment on above: Concentration Interp retation Follow-Up< 5 - 50 ug/g Normal None>50 -120 ug/g Borderline Re-evaluate in 4-6 weeks >120 ug/g Abnormal Repeat as clinically indicatedPerformed at: - [facility] [address] [id number] Director: Marcio Hennessy MD, Phone: [phone] C-Reactive Protein Extended Range < 2.90 mg/L 0.0-3.0 [facility] Comment on above: C-Reactive Protein ( CRP) provides useful information for thediagnosis, therapy and monitoring of inflammatory processesand associated diseases. For the evaluation of Relative Riskfor Cardiovascular Disease, a High Sensitivity CRP (HSCRP)should be ordered. Miscellaneous Test See comment [facility] Comment on above: Scanned image report available in EMR Qualitative QuantiFERON-TB g old in tube testOrdered By: Arthur Bull on 11-17-2023 M. tuberculosis tuberculin stim IFN-g Ql (Bld) 0.04 IU/mL . [facility] Stool lactoferrin detection by immunoassayOrdered By: Arthur Bull on 11-17-2023 Lactoferrin IA Ql (Stl) [facility] Lactoferrin IA Ql (Stl) [facility] Thin prep Papanicolaou smear with manual screeningOrdered By: Arthur Bull on 11-17-2023 Thin prep Papanicolaou smear with manual screening Comment . [facility] Comment on above: QuantiFERON-TB Gold Plus is [...] smear with manual screening 0 IU/mL . [facility] Thin prep Papanicolaou smear with manual screening > 10.00 IU/mL . [facility] Thin prep Papanicolaou smear with manual screening Negative Negative [facility] Comment on above: No response to M [...] the productionof interferon gamma. Chemiluminescence immunoassaymethodologyPerformed at: [facility] [address] [id number] Director: Saad Hernandez PhD, Phone: [phone] Absolute lymphocyte countOrd ered By: Andreas Buenrostro on 11-03-2023 Lymphocytes Auto (Unsp spec) [#/Vol] 5.60 10*3/uL 0.83-4.51 [facility] Basophil percentageOrdered B y: Andreas Buenrostro on 11-03-2023 Basophil percentage 0 SEEN /hpf 0-5 [facility] Basophils/100 WBC (Bld) 0.5 % 0-[address] [facility] Bilirubin [Mass/Vol] 0.30 mg/dL 0.20-1.00 [facility] Comment on above: For patients on eltr ombopag therapy, use of Dimension [place] TBIL is not recommended. Chloride [Moles/Vol] 104 mmol/L 98-107 [facility] Cholesterol [Mass/Vol] 222 mg/dL <200 [facility] Comment on above: <200 mg/dL Desirable 200-240 mg/dL Borderline >240 mg/dL High Risk Eosinophils/100 WBC (Bld) 1.1 % 0-5 [facility] Glucose [Mass/Vol] 89 mg/dL 74-106 [facility] Neutrophils (Bld) [#/Vol] 7.4 10*3/uL 2.0-7.7 [facility] Neutrophils/100 WBC (Bld) 52.5 % 47-70 [facility] Potassium [Moles/Vol] 4.3 mmol/L 3.5-5.1 [facility] Protein [Mass/Vol] 7.8 g/dL 6.4-8.2 [facility] Sodium [Moles/Vol] 138 mmol/L 136-145 [facility] Triglyceride [Mass/Vol] 118 mg/dL <[address] [facility] Comment on above: The drugs N-Acetylcy steine and Metamizole may falsely depress this assay.Serum Triglycerides Reference Interval Normal <150 mg/dL Borderline high 150 - 199 mg/dL High 200 - 499 mg/dL Very High > or = 500 mg/dL WBC (Bld) [#/Vol] 14.1 10*3/uL 4.4-11.0 [facility] Bilirubin Test strip Ql (U)O rdered By: Andreas Buenrostro on 11-03-2023 Bilirubin Ql (U) Negative Negative [facility] Blood erythrocytes count (nu mber/volume)Ordered By: Andreas Buenrostro on 11-03-2023 RBC (Bld) [#/Vol] 4.61 10*6/uL 4.2-5.4 [facility] Blood hemoglobin measurement (mass/volume)Ordered By: Andreas Buenrostro on 11-03-2023 Hemoglobin (Bld) [Mass/Vol] 14.1 g/dL 12.0-15.0 [facility] Blood lymphocytes/100 leukoc ytesOrdered By: Andreas Buenrostro on 11-03-2023 Lymphocytes/100 WBC (Bld) 39.7 % 19-41 [facility] Blood manual differential co mment interpretation (narrative result)Ordered By: Andreas Buenrostro on 11-03-2023 Manual differential comment Rodrigo (Bld) [Interp] COMMENT [facility] Comment on above: LYMPHOCYTOSIS. Blood monocytes/100 leukocyt esOrdered By: Andreas Buenrostro on 11-03-2023 Monocytes/100 WBC (Bld) 5.8 % 0-[address] [facility] Blood platelet mean volumeOr dered By: Andreas Buenrostro on 11-03-2023 Platelet mean volume (Bld) [Entitic vol] 10.0 fL 6.2-12.0 [facility] Determination of erythrocyte mean corpuscular volume (MCV)Ordered By: Andreas Buenrostro on 11-03-2023 MCV (RBC) [Entitic vol] 95.7 fL 81-[address] [facility] Hematocrit Auto (Bld) [Volum e fraction]Ordered By: Andreas Buenrostro on 11-03-2023 Hematocrit (Bld) [Volume fraction] 44.1 % 37-47 [facility] Ketones Test strip Ql (U)Ord ered By: Andreas Buenrostro on 11-03-2023 Ketones Ql (U) Negative Negative [facility] Laboratory - Chemistry and C hemistry - challengeOrdered By: Andreas Buenrostro on 11-03-2023 ALP [Catalytic activity/Vol] 65 U/L 45-117 [facility] ALT [Catalytic activity/Vol] 25 U/L 13-56 [facility] CO2 [Moles/Vol] 30.0 mmol/L 21.0-32.0 [facility] Globulin (S) [Mass/Vol] 4.0 g/dL 2.2-4.[address] [facility] Urea nitrogen/Creatinine [Mass ratio] 26.2 mg/mg 10-20 [facility] Laboratory - Hematology and Cell countsOrdered By: Andreas Buenrostro on 11-03-2023 Erythrocyte distribution width (RBC) [Entitic vol] 46.0 fL 35.1-43.9 [facility] Erythrocyte distribution width (RBC) [Ratio] 13.1 % 11.6-14.6 [facility] Immature granulocytes/100 WBC (Bld) 0.400 % 0.0-0.9 [facility] Comment on above: IG% - Immature Granu locytes (promyelocytes, myelocytes and metamyelocytes) > 1% indicates that a LEFT SHIFT is Present. MCH (RBC) [Entitic mass] 30.6 pg 27.0-32.0 [facility] Nucleated RBC/100 WBC (Bld) [Ratio] 0 % 0-5 [facility] MCHC Auto (RBC) [Mass/Vol]Or dered By: Andreas Buenrostro on 11-03-2023 MCHC (RBC) [Mass/Vol] 32.0 g/dL 32-36 [facility] Mucus LM Ql (Urine sed)Order ed By: Andreas Buenrostro on 11-03-2023 Mucus Ql (Urine sed) 0 SEEN /hpf [facility] Nitrite Test strip Ql (U)Ord ered By: Andreas Buenrostro on 11-03-2023 Nitrite Ql (U) Negative Negative [facility] No Panel InformationOrdered By: Andreas Buenrostro on 11-03-2023 Estimated GFR (MDRD) Amer 88 mL/min >60 [facility] Comment on above: GFR Calc Estimated GFR (MDRD) Non-Af Amer 72 mL/min >60 [facility] Comment on above: Non- GFR Calc Thyroid Stimulating Hormone (TSH) 2.30 uIU/mL 0.358-3.74 [facility] Platelets bldOrdered By: Hans Buenrostro on 11-03-2023 Platelets (Bld) [#/Vol] 280 10*3/uL 150-450 [facility] Protein Test strip Ql (U)Ord ered By: Andreas Buenrostro on 11-03-2023 Protein Ql (U) Negative Negative [facility] Serum or plasma albumin lavelle urement (mass/volume)Ordered By: Andreas Buenrostro on 11-03-2023 Albumin [Mass/Vol] 3.8 g/dL 3.2-5.0 [facility] Serum or plasma albumin/glob ulin mass ratioOrdered By: Andreas Buenrostro on 11-03-2023 Albumin/Globulin [Mass ratio] 1.0 {ratio} 0.9-2.4 [facility] Serum or plasma calcium lavelle urement (mass/volume)Ordered By: Andreas Buenrostro on 11-03-2023 Calcium [Mass/Vol] 9.7 mg/dL 8.5-10.1 [facility] Serum or plasma cholesterol in HDL measurement (mass/volume)Ordered By: Andreas Buenrostro on 11-03-2023 Cholesterol in HDL [Mass/Vol] 71 mg/dL >40 [facility] Comment on above: The drugs N-Acetylcy steine and Metamizole may falsely depress this assay. Reference Range HDL <40 mg/dL Low HDL Cholesterol HDL >or= 60 mg/dL High HDL Cholesterol Serum or plasma cholesterol in VLDL measurement (mass/volume)Ordered By: Andreas Buenrostro on 11-03-2023 Cholesterol in VLDL [Mass/Vol] 24 mg/dL 5-40 [facility] Serum or plasma creatinine m easurement (mass/volume)Ordered By: Andreas Buenrostro on 11-03-2023 Creatinine [Mass/Vol] 0.84 mg/dL 0.55-1.02 [facility] Comment on above: The validity of the calculated GFR & GFRAA in patients over 70 years has not been determined. Clinical correlation is essential. Serum or plasma low density lipoprotein (LDL) cholesterol measurement (mass/volume)Ordered By: Andreas Buenrostro on 11-03-2023 Cholesterol in LDL [Mass/Vol] 127 mg/dL 0-130 [facility] Serum or plasma urea nitroge n measurement (mass/volume)Ordered By: Andreas Buenrostro on 11-03-2023 Urea nitrogen [Mass/Vol] 22 mg/dL 7-18 [facility] Squamous epithelial cells de tection in urine sediment by light microscopyOrdered By: Andreas Buenrostro on 11-03-2023 Epithelial cells.squamous LM Ql (Urine sed) 0 SEEN /hpf 5-10 [facility] Thin prep Papanicolaou smear with manual screeningOrdered By: Andreas Buenrostro on 11-03-2023 Thin prep Papanicolaou smear with manual screening 17 U/L 15-37 [facility] Thin prep Papanicolaou smear with manual screening 4 5-15 [facility] Urine blood detectionOrdered By: Andreas Buenrostro on 11-03-2023 RBC Ql (U) 25 /ul Negative [facility] RBC Ql (U) 0-5 SEEN /hpf 0-5 [facility] Urine clarityOrdered By: Hans Buenrostro on 11-03-2023 Clarity (U) Clear Clear [facility] Urine color determinationOrd ered By: Andreas Buenrostro on 11-03-2023 Color (U) Yellow Yellow [facility] Urine glucose detectionOrder ed By: Andreas Buenrostro on 11-03-2023 Glucose Ql (U) Normal mg/dl Normal [facility] Urine leukocyte esterase det ection by dipstickOrdered By: Andreas Buenrostro on 11-03-2023 Leukocyte esterase Test strip Ql (U) Negative Negative [facility] Urine pHOrdered By: Andreas wallis on 11-03-2023 pH (U) 6.0 [pH] 5.0 - 8.0 [facility] Urine sediment bacteria coun t by microscopy (number/high power field)Ordered By: Andreas Buenrostro on 11-03-2023 Bacteria LM.HPF (Urine sed) [#/Area] 0 /[HPF] None Seen [facility] Urine specific gravity measu rementOrdered By: Andreas Buenrostro on 11-03-2023 Specific gravity (U) [Rel density] 1.010 1.002-1.03 0 [facility] Urobilinogen Auto test strip Ql (U)Ordered By: Andreas Buenrostro on 11-03-2023 Urobilinogen Ql (U) Normal mg/dl Normal [facility] Whole blood hemoglobin A1c/t otal hemoglobin ratio (mass fraction)Ordered By: Andreas Buenrostro on 11-03-2023 HbA1c (Bld) [Mass fraction] 5.4 % 3.8-5.6 [facility] Comment on above: Normal < 5.7 % Predi abetic 5.7 - 6.4 % Diabetic >or= 6.5 % Please note range changes. Absolute lymphocyte countOrd ered By: Andreas Buenrostro on 08-04-2023 Lymphocytes Auto (Unsp spec) [#/Vol] 4.12 10*3/uL 0.83-4.51 [facility] Basophil percentageOrdered B y: Andreas Buenrostro on 08-04-2023 Basophils/100 WBC (Bld) 0.3 % 0-[address] [facility] Eosinophils/100 WBC (Bld) 1.7 % 0-5 [facility] Neutrophils (Bld) [#/Vol] 6.2 10*3/uL 2.0-7.7 [facility] Neutrophils/100 WBC (Bld) 55.6 % 47-70 [facility] WBC (Bld) [#/Vol] 11.1 10*3/uL 4.4-11.0 [facility] Blood erythrocytes count (nu mber/volume)Ordered By: Andreas Buenrostro on 08-04-2023 RBC (Bld) [#/Vol] 4.38 10*6/uL 4.2-5.4 [facility] Blood hemoglobin measurement (mass/volume)Ordered By: Andreas Buenrostro on 08-04-2023 Hemoglobin (Bld) [Mass/Vol] 13.6 g/dL 12.0-15.0 [facility] Blood lymphocytes/100 leukoc ytesOrdered By: Andreas Buenrostro on 08-04-2023 Lymphocytes/100 WBC (Bld) 37.2 % 19-41 [facility] Blood monocytes/100 leukocyt esOrdered By: Andreas Buenrostro on 08-04-2023 Monocytes/100 WBC (Bld) 5.0 % 0-[address] [facility] Blood platelet mean volumeOr dered By: Andreas Buenrostro on 08-04-2023 Platelet mean volume (Bld) [Entitic vol] 10.0 fL 6.2-12.0 [facility] Determination of erythrocyte mean corpuscular volume (MCV)Ordered By: Andreas Buenrostro on 08-04-2023 MCV (RBC) [Entitic vol] 94.5 fL 81-[address] [facility] Hematocrit Auto (Bld) [Volum e fraction]Ordered By: Andreas Buenrostro on 08-04-2023 Hematocrit (Bld) [Volume fraction] 41.4 % 37-47 [facility] Laboratory - Chemistry and C hemistry - challengeOrdered By: Andreas Buenrostro on 08-04-2023 Free T4 [Mass/Vol] 1.22 ng/dL 0.76-1.46 [facility] Laboratory - Hematology and Cell countsOrdered By: Andreas Buenrostro on 08-04-2023 Erythrocyte distribution width (RBC) [Entitic vol] 39.1 fL 35.1-43.9 [facility] Erythrocyte distribution width (RBC) [Ratio] 11.3 % 11.6-14.6 [facility] Immature granulocytes/100 WBC (Bld) 0.200 % 0.0-0.9 [facility] Comment on above: IG% - Immature Granu locytes (promyelocytes, myelocytes and metamyelocytes) > 1% indicates that a LEFT SHIFT is Present. MCH (RBC) [Entitic mass] 31.1 pg 27.0-32.0 [facility] Nucleated RBC/100 WBC (Bld) [Ratio] 0 % 0-5 [facility] MCHC Auto (RBC) [Mass/Vol]Or dered By: Andreas Buenrostro on 08-04-2023 MCHC (RBC) [Mass/Vol] 32.9 g/dL 32-36 [facility] No Panel InformationOrdered By: Andreas Buenrostro on 08-04-2023 Thyroid Stimulating Hormone (TSH) 0.78 uIU/mL 0.358-3.74 [facility] Platelets bldOrdered By: Hans Buenrostro on 08-04-2023 Platelets (Bld) [#/Vol] 299 10*3/uL 150-450 [facility] Whole blood hemoglobin A1c/t otal hemoglobin ratio (mass fraction)Ordered By: Andreas Buenrostro on 08-04-2023 HbA1c (Bld) [Mass fraction] 5.6 % 3.8-5.6 [facility] Comment on above: Normal < 5.7 % Predi abetic 5.7 - 6.4 % Diabetic >or= 6.5 % Please note range changes. Basophil percentageOrdered B y: Luba Godoy on 07-30-2023 Basophil percentage 0 SEEN /hpf 0-5 [facility] Bilirubin Test strip Ql (U)O rdered By: Luba Godoy on 07-30-2023 Bilirubin Ql (U) Negative Negative [facility] Ketones Test strip Ql (U)Ord ered By: Luba Godoy on 07-30-2023 Ketones Ql (U) Negative Negative [facility] Mucus LM Ql (Urine sed)Order ed By: Luba Godoy on 07-30-2023 Mucus Ql (Urine sed) 0 SEEN /hpf [facility] Nitrite Test strip Ql (U)Ord ered By: Luba Godoy on 07-30-2023 Nitrite Ql (U) Negative Negative [facility] Protein Test strip Ql (U)Ord ered By: Luba Godoy on 07-30-2023 Protein Ql (U) Negative Negative [facility] Squamous epithelial cells de tection in urine sediment by light microscopyOrdered By: Luba Godoy on 07-30-2023 Epithelial cells.squamous LM Ql (Urine sed) 0 SEEN /hpf 5-10 [facility] Urine blood detectionOrdered By: Luba Godoy on 07-30-2023 RBC Ql (U) 25 /ul Negative [facility] RBC Ql (U) 0-5 SEEN /hpf 0-5 [facility] Urine clarityOrdered By: Nirmala Godoy on 07-30-2023 Clarity (U) Sl. Cloudy Clear [facility] Urine color determinationOrd ered By: Luba Godoy on 07-30-2023 Color (U) Yellow Yellow [facility] Urine glucose detectionOrder ed By: Luba Godoy on 07-30-2023 Glucose Ql (U) Normal mg/dl Normal [facility] Urine leukocyte esterase det ection by dipstickOrdered By: Luba Godoy on 07-30-2023 Leukocyte esterase Test strip Ql (U) Negative Negative [facility] Urine pHOrdered By: Luba Godoy on 07-30-2023 pH (U) 7.0 [pH] 5.0 - 8.0 [facility] Urine sediment bacteria coun t by microscopy (number/high power field)Ordered By: Luba Godoy on 07-30-2023 Bacteria LM.HPF (Urine sed) [#/Area] 0 /[HPF] None Seen [facility] Urine specific gravity measu rementOrdered By: Luba Godoy on 07-30-2023 Specific gravity (U) [Rel density] 1.005 1.002-1.03 0 [facility] Urobilinogen Auto test strip Ql (U)Ordered By: Luba Godoy on 07-30-2023 Urobilinogen Ql (U) Normal mg/dl Normal [facility] Absolute lymphocyte countOrd ered By: Arthur Bull on 07-29-2023 Lymphocytes Auto (Unsp spec) [#/Vol] 3.88 10*3/uL 0.83-4.51 [facility] Basophil percentageOrdered B y: Arthur Bull on 07-29-2023 Basophils/100 WBC (Bld) 0.4 % 0-[address] [facility] Bilirubin [Mass/Vol] 0.60 mg/dL 0.20-1.00 [facility] Comment on above: For patients on eltr ombopag therapy, use of Dimension [place] TBIL is not recommended. Chloride [Moles/Vol] 108 mmol/L 98-107 [facility] Eosinophils/100 WBC (Bld) 1.5 % 0-5 [facility] Glucose [Mass/Vol] 91 mg/dL 74-106 [facility] Neutrophils (Bld) [#/Vol] 10.8 10*3/uL 2.0-7.7 [facility] Neutrophils/100 WBC (Bld) 68.9 % 47-70 [facility] Potassium [Moles/Vol] 3.8 mmol/L 3.5-5.1 [facility] Protein [Mass/Vol] 7.5 g/dL 6.4-8.2 [facility] Sodium [Moles/Vol] 139 mmol/L 136-145 [facility] WBC (Bld) [#/Vol] 15.7 10*3/uL 4.4-11.0 [facility] Blood erythrocytes count (nu mber/volume)Ordered By: Arthur Bull on 07-29-2023 RBC (Bld) [#/Vol] 4.36 10*6/uL 4.2-5.4 [facility] Blood hemoglobin measurement (mass/volume)Ordered By: Arthur Bull on 07-29-2023 Hemoglobin (Bld) [Mass/Vol] 13.5 g/dL 12.0-15.0 [facility] Blood lymphocytes/100 leukoc ytesOrdered By: Arthur Bull on 07-29-2023 Lymphocytes/100 WBC (Bld) 24.8 % 19-41 [facility] Blood monocytes/100 leukocyt esOrdered By: Arthur Bull on 07-29-2023 Monocytes/100 WBC (Bld) 4.0 % 0-[address] [facility] Blood platelet mean volumeOr dered By: Arthur Bull on 07-29-2023 Platelet mean volume (Bld) [Entitic vol] 9.4 fL 6.2-12.0 [facility] Determination of erythrocyte mean corpuscular volume (MCV)Ordered By: Arthur Bull on 07-29-2023 MCV (RBC) [Entitic vol] 93.6 fL 81-[address] [facility] Erythrocyte sedimentation ra teOrdered By: Arthur Bull on 07-29-2023 ESR (Bld) [Velocity] 25 mm/h 0-30 [facility] Hematocrit Auto (Bld) [Volum e fraction]Ordered By: Arthur Bull on 07-29-2023 Hematocrit (Bld) [Volume fraction] 40.8 % 37-47 [facility] Laboratory - Chemistry and C hemistry - challengeOrdered By: Arthur Bull on 07-29-2023 ALP [Catalytic activity/Vol] 75 U/L 45-117 [facility] ALT [Catalytic activity/Vol] 25 U/L 13-56 [facility] CO2 [Moles/Vol] 28.0 mmol/L 21.0-32.0 [facility] Globulin (S) [Mass/Vol] 3.7 g/dL 2.2-4.[address] [facility] Urea nitrogen/Creatinine [Mass ratio] 17.3 mg/mg 10-20 [facility] Laboratory - Hematology and Cell countsOrdered By: Arthur Bull on 07-29-2023 Erythrocyte distribution width (RBC) [Entitic vol] 39.6 fL 35.1-43.9 [facility] Erythrocyte distribution width (RBC) [Ratio] 11.4 % 11.6-14.6 [facility] Immature granulocytes/100 WBC (Bld) 0.400 % 0.0-0.9 [facility] Comment on above: IG% - Immature Granu locytes (promyelocytes, myelocytes and metamyelocytes) > 1% indicates that a LEFT SHIFT is Present. MCH (RBC) [Entitic mass] 31.0 pg 27.0-32.0 [facility] Nucleated RBC/100 WBC (Bld) [Ratio] 0 % 0-5 [facility] MCHC Auto (RBC) [Mass/Vol]Or dered By: Arthur Bull on 07-29-2023 MCHC (RBC) [Mass/Vol] 33.1 g/dL 32-36 [facility] No Panel InformationOrdered By: Arthur Bull on 07-29-2023 Stool Calprotectin 237 ug/g 0-120 [facility] Comment on above: Concentration Interp retation Follow-Up< 5 - 50 ug/g Normal None>50 -120 ug/g Borderline Re-evaluate in 4-6 weeks >120 ug/g Abnormal Repeat as clinically indicatedPerformed at: - [facility] [address] [id number] Director: Marcio Hennessy MD, Phone: [phone] Estimated GFR (MDRD) Amer 100 mL/min >60 [facility] Comment on above: GFR Calc Estimated GFR (MDRD) Non-Af Amer 83 mL/min >60 [facility] Comment on above: Non- GFR Calc Miscellaneous Test See comment [facility] Comment on above: Scanned image report available in EMR Platelets bldOrdered By: Steve Bull on 07-29-2023 Platelets (Bld) [#/Vol] 286 10*3/uL 150-450 [facility] Serum or plasma C reactive p rotein measurement (mass/volume)Ordered By: Arthur Bull on 07-29-2023 CRP [Mass/Vol] mg/L 0.0-3.0 [facility] Comment on above: C-Reactive Protein ( CRP) provides useful information for thediagnosis, therapy and monitoring of inflammatory processesand associated diseases. For the evaluation of Relative Riskfor Cardiovascular Disease, a High Sensitivity CRP (HSCRP)should be ordered. Serum or plasma albumin lavelle urement (mass/volume)Ordered By: Arthur Bull on 07-29-2023 Albumin [Mass/Vol] 3.8 g/dL 3.2-5.0 [facility] Serum or plasma albumin/glob ulin mass ratioOrdered By: Arthur Bull on 07-29-2023 Albumin/Globulin [Mass ratio] 1.0 {ratio} 0.9-2.4 [facility] Serum or plasma calcium lavelle urement (mass/volume)Ordered By: Arthur Bull on 07-29-2023 Calcium [Mass/Vol] 8.9 mg/dL 8.5-10.1 [facility] Serum or plasma creatinine m easurement (mass/volume)Ordered By: Arthur Bull on 07-29-2023 Creatinine [Mass/Vol] 0.75 mg/dL 0.55-1.02 [facility] Comment on above: The validity of the calculated GFR & GFRAA in patients over 70 years has not been determined. Clinical correlation is essential. Serum or plasma urea nitroge n measurement (mass/volume)Ordered By: Arthur Bull on 07-29-2023 Urea nitrogen [Mass/Vol] 13 mg/dL 7-18 [facility] Stool lactoferrin detection by immunoassayOrdered By: Arthur Bull on 07-29-2023 Lactoferrin IA Ql (Stl) [facility] Lactoferrin IA Ql (Stl) [facility] Thin prep Papanicolaou smear with manual screeningOrdered By: Arthur Bull on 07-29-2023 Thin prep Papanicolaou smear with manual screening 17 U/L 15-37 [facility] Thin prep Papanicolaou smear with manual screening 3 5-15 [facility] No Panel Informationon 07-18 POC SARS CoV-2 Antigen Negative [facility] Absolute lymphocyte countOrd ered By: Dr. Buenrostro on 03-31-2023 Lymphocytes Auto (Unsp spec) [#/Vol] 3.97 10*3/uL 0.83-4.51 [facility] Basophil percentageOrdered B y: Dr. Buenrostro on 03-31-2023 Basophil percentage 132 mg/dL 74-106 [facility] Basophil percentage 7.1 g/dL 6.4-8.2 [facility] Basophil percentage 0.40 mg/dL 0.20-1.00 [facility] Basophil percentage 140 mmol/L 136-145 [facility] Basophil percentage 3.9 mmol/L 3.5-5.1 [facility] Basophil percentage 105 mmol/L 98-107 [facility] Basophils (Bld) [#/Vol] 17.4 10*3/uL 4.4-11.0 [facility] Basophils (Bld) [#/Vol] 12.4 10*3/uL 2.0-7.7 [facility] Basophils/100 WBC (Bld) 71.0 % 47-[address] [facility] Basophils/100 WBC (Bld) 0.6 % 0-[address] [facility] Basophils/100 WBC (Bld) 0.3 % 0-[address] [facility] Blood erythrocytes count (nu mber/volume)Ordered By: Dr. Buenrostro on 03-31-2023 RBC (Bld) [#/Vol] 4.59 10*6/uL 4.2-5.4 [facility] Blood hemoglobin measurement (mass/volume)Ordered By: Dr. Buenrostro on 03-31-2023 Hemoglobin (Bld) [Mass/Vol] 14.6 g/dL 12.0-15.0 [facility] Blood lymphocytes/100 leukoc ytesOrdered By: Dr. Buenrostro on 03-31-2023 Lymphocytes/100 WBC (Bld) 22.8 % 19-41 [facility] Blood monocytes/100 leukocyt esOrdered By: Dr. Buenrostro on 03-31-2023 Monocytes/100 WBC (Bld) 4.6 % 0-10 [facility] Blood platelet mean volumeOr dered By: Dr. Buenrostro on 03-31-2023 Platelet mean volume (Bld) [Entitic vol] 10.0 fL 6.2-12.0 [facility] Determination of erythrocyte mean corpuscular volume (MCV)Ordered By: Dr. Buenrostro on 03-31-2023 MCV (RBC) [Entitic vol] 94.8 fL 81-[address] [facility] Hematocrit Auto (Bld) [Volum e fraction]Ordered By: Dr. Buenrostro on 03-31-2023 Hematocrit (Bld) [Volume fraction] 43.5 % 37-47 [facility] MCHC Auto (RBC) [Mass/Vol]Or dered By: Dr. Buenrostro on 03-31-2023 MCHC (RBC) [Mass/Vol] 33.6 g/dL 32-36 [facility] No Panel InformationOrdered By: Dr. Buenrostro on 03-31-2023 31.8 pg 27.0-32.0 [facility] 12.7 % 11.6-14.6 [facility] 43.7 fl 35.1-43.9 [facility] 0.700 % 0.0-0.9 [facility] 0 % 0-5 [facility] 88 mL/min >60 [facility] 106 mL/min >60 [facility] 21.0 RATIO 10-20 [facility] 3.5 g/dL 2.2-4.2 [facility] 60 U/L 45-117 [facility] 32 U/L 13-56 [facility] 29.0 mmol/L 21.0-32.0 [facility] Platelets bldOrdered By: Dr. Buenrostro on 03-31-2023 Platelets (Bld) [#/Vol] 273 10*3/uL 150-450 [facility] Serum or plasma albumin lavelle urement (mass/volume)Ordered By: Dr. Buenrostro on 03-31-2023 Albumin [Mass/Vol] 3.6 g/dL 3.2-5.0 [facility] Serum or plasma albumin/glob ulin mass ratioOrdered By: Dr. Buenrostro on 03-31-2023 Albumin/Globulin [Mass ratio] 1.0 {ratio} 0.9-2.4 [facility] Serum or plasma calcium lavelle urement (mass/volume)Ordered By: Dr. Buenrostro on 03-31-2023 Calcium [Mass/Vol] 9.3 mg/dL 8.5-10.1 [facility] Serum or plasma creatinine m easurement (mass/volume)Ordered By: Dr. Buenrostro on 03-31-2023 Creatinine [Mass/Vol] 0.71 mg/dL 0.55-1.02 [facility] Serum or plasma urea nitroge n measurement (mass/volume)Ordered By: Dr. Buenrostro on 03-31-2023 Urea nitrogen [Mass/Vol] 15 mg/dL 7-18 [facility] Thin prep Papanicolaou smear with manual screeningOrdered By: Dr. Buenrostro on 03-31-2023 Thin prep Papanicolaou smear with manual screening 17 U/L 15-37 [facility] Thin prep Papanicolaou smear with manual screening 6 5-15 [facility] Absolute lymphocyte countOrd ered By: Dr. Godoy on 03-17-2023 Lymphocytes Auto (Unsp spec) [#/Vol] 7.13 10*3/uL 0.83-4.51 [facility] Basophil percentageOrdered B y: Dr. Godoy on 03-17-2023 Basophil percentage 106 mg/dL 74-106 [facility] Basophil percentage 140 mmol/L 136-145 [facility] Basophil percentage 3.4 mmol/L 3.5-5.1 [facility] Basophil percentage 103 mmol/L 98-107 [facility] Basophils (Bld) [#/Vol] 18.2 10*3/uL 4.4-11.0 [facility] Basophils (Bld) [#/Vol] 9.8 10*3/uL 2.0-7.7 [facility] Basophils/100 WBC (Bld) 53.9 % 47-[address] [facility] Basophils/100 WBC (Bld) 0.5 % 0-[address] [facility] Basophils/100 WBC (Bld) 0.3 % 0-[address] [facility] Blood erythrocytes count (nu mber/volume)Ordered By: Dr. Godoy on 03-17-2023 RBC (Bld) [#/Vol] 4.60 10*6/uL 4.2-5.4 [facility] Blood hemoglobin measurement (mass/volume)Ordered By: Dr. Godoy on 03-17-2023 Hemoglobin (Bld) [Mass/Vol] 15.2 g/dL 12.0-15.0 [facility] Blood lymphocytes/100 leukoc ytesOrdered By: Dr. Godoy on 03-17-2023 Lymphocytes/100 WBC (Bld) 39.2 % 19-41 [facility] Blood manual differential co mment interpretation (narrative result)Ordered By: Dr. Godoy on 03-17-2023 Manual differential comment Rodrigo (Bld) [Interp] SCANNED [facility] Blood monocytes/100 leukocyt esOrdered By: Dr. Godoy on 03-17-2023 Monocytes/100 WBC (Bld) 5.2 % 0-[address] [facility] Blood platelet mean volumeOr dered By: Dr. Godoy on 03-17-2023 Platelet mean volume (Bld) [Entitic vol] 9.4 fL 6.2-12.0 [facility] Determination of erythrocyte mean corpuscular volume (MCV)Ordered By: Dr. Godoy on 03-17-2023 MCV (RBC) [Entitic vol] 95.0 fL 81-[address] [facility] Hematocrit Auto (Bld) [Volum e fraction]Ordered By: Dr. Godoy on 03-17-2023 Hematocrit (Bld) [Volume fraction] 43.7 % 37-47 [facility] MCHC Auto (RBC) [Mass/Vol]Or dered By: Dr. Godoy on 03-17-2023 MCHC (RBC) [Mass/Vol] 34.8 g/dL 32-36 [facility] No Panel InformationOrdered By: Dr. Godoy on 03-17-2023 33.0 pg 27.0-32.0 [facility] 12.8 % 11.6-14.6 [facility] 44.8 fl 35.1-43.9 [facility] 0.900 % 0.0-0.9 [facility] 0 % 0-5 [facility] 1+ [facility] 78 mL/min >60 [facility] 94 mL/min >60 [facility] 52.36 ml/min [facility] 17.7 RATIO 10-20 [facility] 26.0 mmol/L 21.0-32.0 [facility] Platelets bldOrdered By: Dr. Gdooy on 03-17-2023 Platelets (Bld) [#/Vol] 257 10*3/uL 150-450 [facility] Serum or plasma calcium lavelle urement (mass/volume)Ordered By: Dr. Godoy on 03-17-2023 Calcium [Mass/Vol] 9.3 mg/dL 8.5-10.1 [facility] Serum or plasma creatinine m easurement (mass/volume)Ordered By: Dr. Godoy on 03-17-2023 Creatinine [Mass/Vol] 0.79 mg/dL 0.55-1.02 [facility] Serum or plasma urea nitroge n measurement (mass/volume)Ordered By: Dr. Godoy on 03-17-2023 Urea nitrogen [Mass/Vol] 14 mg/dL 7-18 [facility] Thin prep Papanicolaou smear with manual screeningOrdered By: Dr. Godoy on 03-17-2023 Thin prep Papanicolaou smear with manual screening 11 5-15 [facility] Ova and parasitesOrdered By: Arthur Bull on 02-25-2023 Ova and parasites identified LM Nom (Unsp spec) [facility] Culture, urineOrdered By: Dr Soheila Buenrostro on 02-19-2023 Bacteria identified Cx Nom (U) Culture exhibits no growth. [facility] Amorphous sediment detection in urine sediment by light microscopyOrdered By: Dr. Buenrostro on 02-17-2023 Amorphous sediment LM Ql (Urine sed) 1+ URATE [facility] Basophil percentageOrdered B y: Dr. Buenrostro on 02-17-2023 Basophil percentage 0-5 SEEN /hpf 0-5 [facility] [place] Bilirubin Test strip Ql (U)O rdered By: Dr. Buenrostro on 02-17-2023 Bilirubin Ql (U) Negative Negative [facility] Ketones Test strip Ql (U)Ord ered By: Dr. Buenrostro on 02-17-2023 Ketones Ql (U) Negative Negative [facility] Mucus LM Ql (Urine sed)Order ed By: Dr. Buenrostro on 02-17-2023 Mucus Ql (Urine sed) 0 SEEN /hpf [facility] Nitrite Test strip Ql (U)Ord ered By: Dr. Buenrostro on 02-17-2023 Nitrite Ql (U) Negative Negative [facility] No Panel InformationOrdered By: Dr. Buenrostro on 02-17-2023 Negative Negative [facility] Protein Test strip Ql (U)Ord ered By: Dr. Buenrostro on 02-17-2023 Protein Ql (U) Negative Negative [facility] Serum cyclic citrullinated p eptide IgG antibody assay (units/volume)Ordered By: Dr. Buenrostro on 02-17-2023 Cyclic citrullinated peptide IgG Qn 5 units 0-19 [facility] Serum rheumatoid factor dete ctionOrdered By: Dr. Buenrostro on 02-17-2023 Rheumatoid factor Ql (S) < 10.0 IU/mL <15 [facility] Squamous epithelial cells de tection in urine sediment by light microscopyOrdered By: Dr. Buenrostro on 02-17-2023 Epithelial cells.squamous LM Ql (Urine sed) 0-5 SEEN /hpf 5-10 [facility] Urine blood detectionOrdered By: Dr. Buenrostro on 02-17-2023 RBC Ql (U) 50 /ul Negative [facility] RBC Ql (U) 0-5 SEEN /hpf 0-5 [facility] Urine clarityOrdered By: Dr. Buenrostro on 02-17-2023 Clarity (U) Sl. Cloudy Clear [facility] Urine color determinationOrd ered By: Dr. Buenrostro on 02-17-2023 Color (U) Yellow Yellow [facility] Urine glucose detectionOrder ed By: Dr. Buenrostro on 02-17-2023 Glucose Ql (U) Normal mg/dl Normal [facility] Urine leukocyte esterase det ection by dipstickOrdered By: Dr. Buenrostro on 02-17-2023 Leukocyte esterase Test strip Ql (U) 25 /ul Negative [facility] Urine pHOrdered By: Dr. Luh fortune on 02-17-2023 pH (U) 5.0 [pH] 5.0 - 8.0 [facility] Urine sediment bacteria coun t by microscopy (number/high power field)Ordered By: Dr. Buenrostro on 02-17-2023 Bacteria LM.HPF (Urine sed) [#/Area] 0 /[HPF] None Seen [facility] Urine specific gravity measu rementOrdered By: Dr. Buenrostro on 02-17-2023 Specific gravity (U) [Rel density] 1.010 1.002-1.03 0 [facility] Urobilinogen Auto test strip Ql (U)Ordered By: Dr. Buenrostro on 02-17-2023 Urobilinogen Ql (U) Normal mg/dl Normal [facility] Clostridium difficile detect ion by polymerase chain reactionOrdered By: Arthur Bull on 02-14-2023 C. difficile DNA ROBIN+probe Ql (Unsp spec) [facility] EP PanelOrdered By: Arthur Bull on 02-14-2023 Gastrointestinal pathogens panel ROBIN+probe (Stl) [facility] No Panel InformationOrdered By: Arthur Bull on 02-14-2023 360 ug/g 0-120 [facility] > 500 >200 [facility] Stool Clostridium difficile detectionOrdered By: Arthur Bull on 02-14-2023 C. difficile Ql (Stl) [facility] Stool lactoferrin detection by immunoassayOrdered By: Arthur Bull on 02-14-2023 Lactoferrin IA Ql (Stl) [facility] Absolute lymphocyte countOrd ered By: Casimiro Becerra on 02-11-2023 Lymphocytes Auto (Unsp spec) [#/Vol] 6.48 10*3/uL 0.83-4.51 [facility] Basophil percentageOrdered B y: Casimiro Becerra on 02-11-2023 Basophil percentage 0-5 SEEN /hpf 0-5 [facility] [place] Basophil percentage 100 mg/dL 74-106 [facility] Basophil percentage 7.5 g/dL 6.4-8.2 [facility] Basophil percentage 0.40 mg/dL 0.20-1.00 [facility] Basophil percentage 136 mmol/L 136-145 [facility] Basophil percentage 3.3 mmol/L 3.5-5.1 [facility] Basophil percentage 104 mmol/L 98-107 [facility] Basophils (Bld) [#/Vol] 15.4 10*3/uL 4.4-11.0 [facility] Basophils (Bld) [#/Vol] 7.7 10*3/uL 2.0-7.7 [facility] Basophils/100 WBC (Bld) 50.2 % 47-[address] [facility] Basophils/100 WBC (Bld) 0.7 % 0-[address] [facility] Basophils/100 WBC (Bld) 0.3 % 0-[address] [facility] Bilirubin Test strip Ql (U)O rdered By: Casimiro Becerra on 02-11-2023 Bilirubin Ql (U) 1 mg/dL Negative [facility] Blood erythrocytes count (nu mber/volume)Ordered By: Casimiro Becerra on 02-11-2023 RBC (Bld) [#/Vol] 4.60 10*6/uL 4.2-5.4 [facility] Blood hemoglobin measurement (mass/volume)Ordered By: Casimiro Becerra on 02-11-2023 Hemoglobin (Bld) [Mass/Vol] 14.7 g/dL 12.0-15.0 [facility] Blood lymphocytes/100 leukoc ytesOrdered By: Casimiro Becerra on 02-11-2023 Lymphocytes/100 WBC (Bld) 42.2 % 19-41 [facility] Blood monocytes/100 leukocyt esOrdered By: Casimiro Becerra on 02-11-2023 Monocytes/100 WBC (Bld) 5.9 % 0-[address] [facility] Blood platelet mean volumeOr dered By: Casimiro Becerra on 02-11-2023 Platelet mean volume (Bld) [Entitic vol] 9.5 fL 6.2-12.0 [facility] Determination of erythrocyte mean corpuscular volume (MCV)Ordered By: Casimiro Becerra on 02-11-2023 MCV (RBC) [Entitic vol] 93.5 fL 81-[address] [facility] Direct bilirubinOrdered By: Casimiro Becerra on 02-11-2023 Bilirubin.direct [Mass/Vol] 0.15 mg/dL 0.00-0.30 [facility] Hematocrit Auto (Bld) [Volum e fraction]Ordered By: Casimiro Becerra on 02-11-2023 Hematocrit (Bld) [Volume fraction] 43.0 % 37-47 [facility] Ketones Test strip Ql (U)Ord ered By: Casimiro Becerra on 02-11-2023 Ketones Ql (U) 5 mg/dl Negative [facility] MCHC Auto (RBC) [Mass/Vol]Or dered By: Casimiro Becerra on 02-11-2023 MCHC (RBC) [Mass/Vol] 34.2 g/dL 32-36 [facility] Mucus LM Ql (Urine sed)Order ed By: Casimiro Becerra on 02-11-2023 Mucus Ql (Urine sed) 3+ /hpf [facility] Nitrite Test strip Ql (U)Ord ered By: Casimiro Becerar on 02-11-2023 Nitrite Ql (U) Negative Negative [facility] No Panel InformationOrdered By: Casimiro Becerra on 02-11-2023 32.0 pg 27.0-32.0 [facility] 12.3 % 11.6-14.6 [facility] 42.3 fl 35.1-43.9 [facility] 0.700 % 0.0-0.9 [facility] 0 % 0-5 [facility] 80 mL/min >60 [facility] 97 mL/min >60 [facility] 53.72 ml/min [facility] 22.0 RATIO 10-20 [facility] 3.7 g/dL 2.2-4.2 [facility] 62 U/L 45-117 [facility] 48 U/L 13-56 [facility] 25.0 mmol/L 21.0-32.0 [facility] 1.56 uIU/mL 0.358-3.74 [facility] Platelets bldOrdered By: Zeeshan Becerra on 02-11-2023 Platelets (Bld) [#/Vol] 289 10*3/uL 150-450 [facility] Protein Test strip Ql (U)Ord ered By: Casimiro Becerra on 02-11-2023 Protein Ql (U) 30 mg/dl Negative [facility] Serum or plasma albumin lavelle urement (mass/volume)Ordered By: Casimiro Becerra on 02-11-2023 Albumin [Mass/Vol] 3.8 g/dL 3.2-5.0 [facility] Serum or plasma calcium lavelle urement (mass/volume)Ordered By: Casimiro Becerra on 02-11-2023 Calcium [Mass/Vol] 9.5 mg/dL 8.5-10.1 [facility] Serum or plasma creatinine m easurement (mass/volume)Ordered By: Casimiro Becerra on 02-11-2023 Creatinine [Mass/Vol] 0.77 mg/dL 0.55-1.02 [facility] Serum or plasma urea nitroge n measurement (mass/volume)Ordered By: Casimiro Becerra on 02-11-2023 Urea nitrogen [Mass/Vol] 17 mg/dL 7-18 [facility] Squamous epithelial cells de tection in urine sediment by light microscopyOrdered By: Casimiro Becerra on 02-11-2023 Epithelial cells.squamous LM Ql (Urine sed) 0-5 SEEN /hpf 5-10 [facility] Thin prep Papanicolaou smear with manual screeningOrdered By: Casimiro Becerra on 02-11-2023 Thin prep Papanicolaou smear with manual screening 18 U/L 15-37 [facility] Thin prep Papanicolaou smear with manual screening 7 5-15 [facility] Urine blood detectionOrdered By: Casimiro Becerra on 02-11-2023 RBC Ql (U) 50 /ul Negative [facility] RBC Ql (U) 0-5 SEEN /hpf 0-5 [facility] Urine clarityOrdered By: Zeeshan Becerra on 02-11-2023 Clarity (U) Clear Clear [facility] Urine color determinationOrd ered By: Casimiro Becerra on 02-11-2023 Color (U) Yellow Yellow [facility] Urine glucose detectionOrder ed By: Casimiro Becerra on 02-11-2023 Glucose Ql (U) Normal mg/dl Normal [facility] Urine leukocyte esterase det ection by dipstickOrdered By: Casimiro Becerra on 02-11-2023 Leukocyte esterase Test strip Ql (U) 500 /ul Negative [facility] Urine pHOrdered By: Casimiro guajardo on 02-11-2023 pH (U) 5.0 [pH] 5.0 - 8.0 [facility] Urine sediment bacteria coun t by microscopy (number/high power field)Ordered By: Casimiro Becerra on 02-11-2023 Bacteria LM.HPF (Urine sed) [#/Area] 2 /[HPF] None Seen [facility] Urine specific gravity measu rementOrdered By: Casimiro Becerra on 02-11-2023 Specific gravity (U) [Rel density] 1.025 1.002-1.03 0 [facility] Urobilinogen Auto test strip Ql (U)Ordered By: Casimiro Becerra on 02-11-2023 Urobilinogen Ql (U) 1 mg/dl Normal [facility] Absolute lymphocyte countOrd ered By: ED PROVIDER on 02-03-2023 Lymphocytes Auto (Unsp spec) [#/Vol] 2.27 10*3/uL 0.83-4.51 [facility] Basophil percentageOrdered B y: ED PROVIDER on 02-03-2023 Basophil percentage 213 mg/dL 74-106 [facility] Basophil percentage 140 mmol/L 136-145 [facility] Basophil percentage 3.8 mmol/L 3.5-5.1 [facility] Basophil percentage 108 mmol/L 98-107 [facility] Basophils (Bld) [#/Vol] 12.3 10*3/uL 4.4-11.0 [facility] Basophils (Bld) [#/Vol] 9.6 10*3/uL 2.0-7.7 [facility] Basophils/100 WBC (Bld) 0.1 % 0-[address] [facility] Basophils/100 WBC (Bld) 78.1 % 47-[address] [facility] Basophils/100 WBC (Bld) 0.0 % 0-5 [facility] Chloride [Moles/Vol] 108 mmol/L 98-107 [facility] Eosinophils/100 WBC (Bld) 0.0 % 0-5 [facility] Glucose [Mass/Vol] 213 mg/dL 74-106 [facility] Comment on above: Glucose result great er than or equal to 200 mg/dLsuggests DIABETES MELLITUS per A.D.A. criteria. Neutrophils (Bld) [#/Vol] 9.6 10*3/uL 2.0-7.7 [facility] Neutrophils/100 WBC (Bld) 78.1 % 47-70 [facility] Potassium [Moles/Vol] 3.8 mmol/L 3.5-5.1 [facility] Sodium [Moles/Vol] 140 mmol/L 136-145 [facility] WBC (Bld) [#/Vol] 12.3 10*3/uL 4.4-11.0 [facility] Blood erythrocytes count (nu mber/volume)Ordered By: ED PROVIDER on 02-03-2023 RBC (Bld) [#/Vol] 4.64 10*6/uL 4.2-5.4 [facility] Blood hemoglobin measurement (mass/volume)Ordered By: ED PROVIDER on 02-03-2023 Hemoglobin (Bld) [Mass/Vol] 14.7 g/dL 12.0-15.0 [facility] Blood lymphocytes/100 leukoc ytesOrdered By: ED PROVIDER on 02-03-2023 Lymphocytes/100 WBC (Bld) 18.4 % 19-41 [facility] Blood monocytes/100 leukocyt esOrdered By: ED PROVIDER on 02-03-2023 Monocytes/100 WBC (Bld) 2.9 % 0-[address] [facility] Blood platelet mean volumeOr dered By: ED PROVIDER on 02-03-2023 Platelet mean volume (Bld) [Entitic vol] 9.2 fL 6.2-12.0 [facility] Determination of erythrocyte mean corpuscular volume (MCV)Ordered By: ED PROVIDER on 02-03-2023 MCV (RBC) [Entitic vol] 92.5 fL 81-[address] [facility] Hematocrit Auto (Bld) [Volum e fraction]Ordered By: ED PROVIDER on 02-03-2023 Hematocrit (Bld) [Volume fraction] 42.9 % 37-47 [facility] Laboratory - Chemistry and C hemistry - challengeOrdered By: ED PROVIDER on 02-03-2023 CO2 [Moles/Vol] 26.0 mmol/L 21.0-32.0 [facility] Urea nitrogen/Creatinine [Mass ratio] 14.1 mg/mg 10-20 [facility] Laboratory - Hematology and Cell countsOrdered By: ED PROVIDER on 02-03-2023 Erythrocyte distribution width (RBC) [Entitic vol] 41.8 fL 35.1-43.9 [facility] Erythrocyte distribution width (RBC) [Ratio] 12.2 % 11.6-14.6 [facility] Immature granulocytes/100 WBC (Bld) 0.500 % 0.0-0.9 [facility] Comment on above: IG% - Immature Granu locytes (promyelocytes, myelocytes and metamyelocytes) > 1% indicates that a LEFT SHIFT is Present. MCH (RBC) [Entitic mass] 31.7 pg 27.0-32.0 [facility] Nucleated RBC/100 WBC (Bld) [Ratio] 0 % 0-5 [facility] MCHC Auto (RBC) [Mass/Vol]Or dered By: ED PROVIDER on 02-03-2023 MCHC (RBC) [Mass/Vol] 34.3 g/dL 32-36 [facility] No Panel InformationOrdered By: ED PROVIDER on 02-03-2023 Estimated GFR (MDRD) Amer 79 mL/min >60 [facility] Comment on above: GFR Calc Estimated GFR (MDRD) Non-Af Amer 65 mL/min >60 [facility] Comment on above: Non- GFR Calc Troponin I High Sensitivity 9 pg/mL 3.0-54.0 [facility] Comment on above: Please Note: New Trena t Units and Gender Specific Reference Ranges. For more information see Policy Stat Procedure [place] High Sensitivity Troponin (TNIH) and attachments. 31.7 pg 27.0-32.0 [facility] 12.2 % 11.6-14.6 [facility] 41.8 fl 35.1-43.9 [facility] 0.500 % 0.0-0.9 [facility] 0 % 0-5 [facility] 65 mL/min >60 [facility] 79 mL/min >60 [facility] 14.1 RATIO 10-20 [facility] 9 pg/mL 3.0-54.0 [facility] 26.0 mmol/L 21.0-32.0 [facility] Platelets bldOrdered By: ED PROVIDER on 02-03-2023 Platelets (Bld) [#/Vol] 286 10*3/uL 150-450 [facility] Serum or plasma calcium lavelle urement (mass/volume)Ordered By: ED PROVIDER on 02-03-2023 Calcium [Mass/Vol] 9.9 mg/dL 8.5-10.1 [facility] Serum or plasma creatinine m easurement (mass/volume)Ordered By: ED PROVIDER on 02-03-2023 Creatinine [Mass/Vol] 0.92 mg/dL 0.55-1.02 [facility] Comment on above: The validity of the calculated GFR & GFRAA in patients over 70 years has not been determined. Clinical correlation is essential. Serum or plasma urea nitroge n measurement (mass/volume)Ordered By: ED PROVIDER on 02-03-2023 Urea nitrogen [Mass/Vol] 13 mg/dL 7-18 [facility] Thin prep Papanicolaou smear with manual screeningOrdered By: ED PROVIDER on 02-03-2023 Thin prep Papanicolaou smear with manual screening 6 5-15 [facility] Bacteria identified Cx Nom ( U)Ordered By: Reji Strickland on 01-24-2023 Culture, urine Positive [facility] Culture, urineOrdered By: St padmini Strickland on 01-24-2023 Bacteria identified Cx Nom (U) Positive [facility] Laboratory - Chemistry and C hemistry - challengeon 01-23-2023 Glucose Ql (U) Negative [facility] Specific gravity (U) [Rel density] 1.015 [facility] Laboratory - Hematology and Cell countson 01-23-2023 Hemoglobin Ql (U) [facility] Laboratory - Specimen inform ationon 01-23-2023 Clarity (U) Clear [facility] Color (U) YELLOW [facility] Laboratory - Urinalysison Nitrite Ql (U) Negative [facility] Protein Ql (U) Negative [facility] No Panel Informationon 01-23 Urine Leukocytes Negatve [facility] YELLOW [facility] Clear [facility] Negative [facility] 1.015 [facility] Large [facility] Negve [facility] Laboratory - Chemistry and C hemistry - challengeOrdered By: Dr. Buenrostro on 01-21-2023 Cobalamin (Vitamin B12) [Mass/Vol] 503 pg/mL 211-911 [facility] No Panel InformationOrdered By: Dr. Buenrostro on 01-21-2023 Thyroid Stimulating Hormone (TSH) 0.28 uIU/mL 0.358-3.74 [facility] Vitamin D 25-Hydroxy 37.5 ng/mL [facility] Comment on above: Vitamin D 25(OH) Sta tus Range Deficiency <20 ng/mL (50nmol/L) Insufficiency 20 - 30 ng/mL (50 - 75 nmol/L) Sufficiency 30 - 100 ng/mL (75 - 250 nmol/L) Toxicity >100 ng/mL (>250 nmol/L) 0.28 uIU/mL 0.358-3.74 [facility] 503 pg/mL 211-911 [facility] 37.5 ng/mL [facility] Whole blood hemoglobin A1c/t otal hemoglobin ratio (mass fraction)Ordered By: Dr. Buenrostro on 01-21-2023 HbA1c (Bld) [Mass fraction] 6.1 % 3.8-5.6 [facility] Comment on above: Normal < 5.7 % Predi abetic 5.7 - 6.4 % Diabetic >or= 6.5 % Please note range changes. Absolute lymphocyte countOrd ered By: Dr. Finch on 01-20-2023 Lymphocytes Auto (Unsp spec) [#/Vol] 3.14 10*3/uL 0.83-4.51 [facility] Basophil percentageOrdered B y: Dr. Finch on 01-20-2023 Basophil percentage 0 SEEN /hpf 0-5 [facility] Basophil percentage 116 mg/dL 74-106 [facility] Basophil percentage 7.5 g/dL 6.4-8.2 [facility] Basophil percentage 0.30 mg/dL 0.20-1.00 [facility] Basophil percentage 137 mmol/L 136-145 [facility] Basophil percentage 4.2 mmol/L 3.5-5.1 [facility] Basophil percentage 106 mmol/L 98-107 [facility] Basophils (Bld) [#/Vol] 14.0 10*3/uL 4.4-11.0 [facility] Basophils (Bld) [#/Vol] 10.2 10*3/uL 2.0-7.7 [facility] Basophils/100 WBC (Bld) 0.1 % 0-1 [facility] Basophils/100 WBC (Bld) 73.2 % 47-70 [facility] Basophils/100 WBC (Bld) 0.0 % 0-5 [facility] Bilirubin [Mass/Vol] 0.30 mg/dL 0.20-1.00 [facility] Comment on above: For patients on eltr ombopag therapy, use of Dimension [place] TBIL is not recommended. Chloride [Moles/Vol] 106 mmol/L 98-107 [facility] Eosinophils/100 WBC (Bld) 0.0 % 0-5 [facility] Glucose [Mass/Vol] 116 mg/dL 74-106 [facility] Comment on above: Fasting Glucose resu lt from 100 to 125 mg/dL suggests IMPAIRED HOMEOSTASIS per A.D.A. criteria. Neutrophils (Bld) [#/Vol] 10.2 10*3/uL 2.0-7.7 [facility] Neutrophils/100 WBC (Bld) 73.2 % 47-70 [facility] Potassium [Moles/Vol] 4.2 mmol/L 3.5-5.1 [facility] Protein [Mass/Vol] 7.5 g/dL 6.4-8.2 [facility] Sodium [Moles/Vol] 137 mmol/L 136-145 [facility] WBC (Bld) [#/Vol] 14.0 10*3/uL 4.4-11.0 [facility] Bilirubin Test strip Ql (U)O rdered By: Dr. Finch on 01-20-2023 Bilirubin Ql (U) Negative Negative [facility] Blood erythrocytes count (nu mber/volume)Ordered By: Dr. Finch on 01-20-2023 RBC (Bld) [#/Vol] 4.63 10*6/uL 4.2-5.4 [facility] Blood hemoglobin measurement (mass/volume)Ordered By: Dr. Finch on 01-20-2023 Hemoglobin (Bld) [Mass/Vol] 14.6 g/dL 12.0-15.0 [facility] Blood lymphocytes/100 leukoc ytesOrdered By: Dr. Finch on 01-20-2023 Lymphocytes/100 WBC (Bld) 22.5 % 19-41 [facility] Blood monocytes/100 leukocyt esOrdered By: Dr. Finch on 01-20-2023 Monocytes/100 WBC (Bld) 3.9 % 0-[address] [facility] Blood platelet mean volumeOr dered By: Dr. Finch on 01-20-2023 Platelet mean volume (Bld) [Entitic vol] 9.8 fL 6.2-12.0 [facility] Determination of erythrocyte mean corpuscular volume (MCV)Ordered By: Dr. Finch on 01-20-2023 MCV (RBC) [Entitic vol] 92.9 fL 81-[address] [facility] Hematocrit Auto (Bld) [Volum e fraction]Ordered By: Dr. Finch on 01-20-2023 Hematocrit (Bld) [Volume fraction] 43.0 % 37-47 [facility] Ketones Test strip Ql (U)Ord ered By: Dr. Finch on 01-20-2023 Ketones Ql (U) Negative Negative [facility] Laboratory - Chemistry and C hemistry - challengeOrdered By: Dr. Finch on 01-20-2023 ALP [Catalytic activity/Vol] 65 U/L 45-117 [facility] ALT [Catalytic activity/Vol] 44 U/L 13-56 [facility] CO2 [Moles/Vol] 27.0 mmol/L 21.0-32.0 [facility] Globulin (S) [Mass/Vol] 3.9 g/dL 2.2-4.[address] [facility] Lipase [Catalytic activity/Vol] 126 U/L 73-393 [facility] Urea nitrogen/Creatinine [Mass ratio] 24.9 mg/mg 10-20 [facility] Laboratory - Hematology and Cell countsOrdered By: Dr. Finch on 01-20-2023 Erythrocyte distribution width (RBC) [Entitic vol] 40.6 fL 35.1-43.9 [facility] Erythrocyte distribution width (RBC) [Ratio] 12.0 % 11.6-14.6 [facility] Immature granulocytes/100 WBC (Bld) 0.300 % 0.0-0.9 [facility] Comment on above: IG% - Immature Granu locytes (promyelocytes, myelocytes and metamyelocytes) > 1% indicates that a LEFT SHIFT is Present. MCH (RBC) [Entitic mass] 31.5 pg 27.0-32.0 [facility] Nucleated RBC/100 WBC (Bld) [Ratio] 0 % 0-5 [facility] MCHC Auto (RBC) [Mass/Vol]Or dered By: Dr. Finch on 01-20-2023 MCHC (RBC) [Mass/Vol] 34.0 g/dL 32-36 [facility] Mucus LM Ql (Urine sed)Order ed By: Dr. Finch on 01-20-2023 Mucus Ql (Urine sed) 0 SEEN /hpf [facility] Nitrite Test strip Ql (U)Ord ered By: Dr. Finch on 01-20-2023 Nitrite Ql (U) Negative Negative [facility] No Panel InformationOrdered By: Dr. Finch on 01-20-2023 Estimated GFR (MDRD) Amer 105 mL/min >60 [facility] Comment on above: GFR Calc Estimated GFR (MDRD) Non-Af Amer 86 mL/min >60 [facility] Comment on above: Non- GFR Calc 31.5 pg 27.0-32.0 [facility] 12.0 % 11.6-14.6 [facility] 40.6 fl 35.1-43.9 [facility] 0.300 % 0.0-0.9 [facility] 0 % 0-5 [facility] 86 mL/min >60 [facility] 105 mL/min >60 [facility] 24.9 RATIO 10-20 [facility] 3.9 g/dL 2.2-4.2 [facility] 126 U/L 73-393 [facility] 65 U/L 45-117 [facility] 44 U/L 13-56 [facility] 27.0 mmol/L 21.0-32.0 [facility] Platelets bldOrdered By: Dr. Finch on 01-20-2023 Platelets (Bld) [#/Vol] 266 10*3/uL 150-450 [facility] Protein Test strip Ql (U)Ord ered By: Dr. Finch on 01-20-2023 Protein Ql (U) Negative Negative [facility] Serum or plasma albumin lavelle urement (mass/volume)Ordered By: Dr. Finch on 01-20-2023 Albumin [Mass/Vol] 3.6 g/dL 3.2-5.0 [facility] Serum or plasma albumin/glob ulin mass ratioOrdered By: Dr. iFnch on 01-20-2023 Albumin/Globulin [Mass ratio] 0.9 {ratio} 0.9-2.4 [facility] Serum or plasma calcium lavelle urement (mass/volume)Ordered By: Dr. Finch on 01-20-2023 Calcium [Mass/Vol] 9.0 mg/dL 8.5-10.1 [facility] Serum or plasma creatinine m easurement (mass/volume)Ordered By: Dr. Finch on 01-20-2023 Creatinine [Mass/Vol] 0.72 mg/dL 0.55-1.02 [facility] Comment on above: The validity of the calculated GFR & GFRAA in patients over 70 years has not been determined. Clinical correlation is essential. Serum or plasma urea nitroge n measurement (mass/volume)Ordered By: Dr. Finch on 01-20-2023 Urea nitrogen [Mass/Vol] 18 mg/dL 7-18 [facility] Squamous epithelial cells de tection in urine sediment by light microscopyOrdered By: Dr. Finch on 01-20-2023 Epithelial cells.squamous LM Ql (Urine sed) 0 SEEN /hpf 5-10 [facility] Thin prep Papanicolaou smear with manual screeningOrdered By: Dr. Finch on 01-20-2023 Thin prep Papanicolaou smear with manual screening 20 U/L 15-37 [facility] Thin prep Papanicolaou smear with manual screening 4 5-15 [facility] Urine blood detectionOrdered By: Dr. Finch on 01-20-2023 RBC Ql (U) 25 /ul Negative [facility] RBC Ql (U) 0-5 SEEN /hpf 0-5 [facility] Urine clarityOrdered By: Dr. Finch on 01-20-2023 Clarity (U) Clear Clear [facility] Urine color determinationOrd ered By: Dr. Finch on 01-20-2023 Color (U) Yellow Yellow [facility] Urine glucose detectionOrder ed By: Dr. Finch on 01-20-2023 Glucose Ql (U) Normal mg/dl Normal [facility] Urine leukocyte esterase det ection by dipstickOrdered By: Dr. Finch on 01-20-2023 Leukocyte esterase Test strip Ql (U) Negative Negative [facility] Urine pHOrdered By: Dr. Des arce on 01-20-2023 pH (U) 7.0 [pH] 5.0 - 8.0 [facility] Urine sediment bacteria coun t by microscopy (number/high power field)Ordered By: Dr. Finch on 01-20-2023 Bacteria LM.HPF (Urine sed) [#/Area] 0 /[HPF] None Seen [facility] Urine specific gravity measu rementOrdered By: Dr. Finch on 01-20-2023 Specific gravity (U) [Rel density] 1.005 1.002-1.03 0 [facility] Urobilinogen Auto test strip Ql (U)Ordered By: Dr. Finch on 01-20-2023 Urobilinogen Ql (U) Normal mg/dl Normal [facility] Absolute lymphocyte countOrd ered By: Dr. Lugo on 01-14-2023 Lymphocytes Auto (Unsp spec) [#/Vol] 3.27 10*3/uL 0.83-4.51 [facility] Basophil percentageOrdered B y: Dr. Lugo on 01-14-2023 Basophil percentage 126 mg/dL 74-106 [facility] Basophil percentage 7.5 g/dL 6.4-8.2 [facility] Basophil percentage 0.70 mg/dL 0.20-1.00 [facility] Basophil percentage 141 mmol/L 136-145 [facility] Basophil percentage 3.5 mmol/L 3.5-5.1 [facility] Basophil percentage 109 mmol/L 98-107 [facility] Basophils (Bld) [#/Vol] 13.7 10*3/uL 4.4-11.0 [facility] Basophils (Bld) [#/Vol] 9.7 10*3/uL 2.0-7.7 [facility] Basophils/100 WBC (Bld) 0.1 % 0-[address] [facility] Basophils/100 WBC (Bld) 71.2 % 47-[address] [facility] Basophils/100 WBC (Bld) 0.0 % 0-[address] [facility] Bilirubin [Mass/Vol] 0.70 mg/dL 0.20-1.00 [facility] Comment on above: For patients on eltr ombopag therapy, use of Dimension [place] TBIL is not recommended. Chloride [Moles/Vol] 109 mmol/L 98-107 [facility] Eosinophils/100 WBC (Bld) 0.0 % 0-5 [facility] Glucose [Mass/Vol] 126 mg/dL 74-106 [facility] Comment on above: Fasting Glucose resu lt greater than or equal to 126 mg/dL suggests DIABETES MELLITUS per A.D.A. criteria. Neutrophils (Bld) [#/Vol] 9.7 10*3/uL 2.0-7.7 [facility] Neutrophils/100 WBC (Bld) 71.2 % 47-70 [facility] Potassium [Moles/Vol] 3.5 mmol/L 3.5-5.1 [facility] Protein [Mass/Vol] 7.5 g/dL 6.4-8.2 [facility] Sodium [Moles/Vol] 141 mmol/L 136-145 [facility] WBC (Bld) [#/Vol] 13.7 10*3/uL 4.4-11.0 [facility] Blood erythrocytes count (nu mber/volume)Ordered By: Dr. Lugo on 01-14-2023 RBC (Bld) [#/Vol] 4.76 10*6/uL 4.2-5.4 [facility] Blood hemoglobin measurement (mass/volume)Ordered By: Dr. Lugo on 01-14-2023 Hemoglobin (Bld) [Mass/Vol] 15.0 g/dL 12.0-15.0 [facility] Blood lymphocytes/100 leukoc ytesOrdered By: Dr. Lugo on 01-14-2023 Lymphocytes/100 WBC (Bld) 23.9 % 19-41 [facility] Blood monocytes/100 leukocyt esOrdered By: Dr. Lugo on 01-14-2023 Monocytes/100 WBC (Bld) 4.5 % 0-[address] [facility] Blood platelet mean volumeOr dered By: Dr. Lugo on 01-14-2023 Platelet mean volume (Bld) [Entitic vol] 10.1 fL 6.2-12.0 [facility] Determination of erythrocyte mean corpuscular volume (MCV)Ordered By: Dr. Lugo on 01-14-2023 MCV (RBC) [Entitic vol] 91.4 fL 81-[address] [facility] Hematocrit Auto (Bld) [Volum e fraction]Ordered By: Dr. Lugo on 01-14-2023 Hematocrit (Bld) [Volume fraction] 43.5 % 37-47 [facility] Laboratory - Chemistry and C hemistry - challengeOrdered By: Dr. Lugo on 01-14-2023 ALP [Catalytic activity/Vol] 68 U/L 45-117 [facility] ALT [Catalytic activity/Vol] 48 U/L 13-56 [facility] CO2 [Moles/Vol] 23.0 mmol/L 21.0-32.0 [facility] Globulin (S) [Mass/Vol] 3.7 g/dL 2.2-4.2 [facility] Lipase [Catalytic activity/Vol] 247 U/L 73-393 [facility] Urea nitrogen/Creatinine [Mass ratio] 26.2 mg/mg 10-20 [facility] Laboratory - Hematology and Cell countsOrdered By: Dr. Lugo on 01-14-2023 Erythrocyte distribution width (RBC) [Entitic vol] 38.9 fL 35.1-43.9 [facility] Erythrocyte distribution width (RBC) [Ratio] 11.6 % 11.6-14.6 [facility] Immature granulocytes/100 WBC (Bld) 0.300 % 0.0-0.9 [facility] Comment on above: IG% - Immature Granu locytes (promyelocytes, myelocytes and metamyelocytes) > 1% indicates that a LEFT SHIFT is Present. MCH (RBC) [Entitic mass] 31.5 pg 27.0-32.0 [facility] Nucleated RBC/100 WBC (Bld) [Ratio] 0 % 0-5 [facility] MCHC Auto (RBC) [Mass/Vol]Or dered By: Dr. Lugo on 01-14-2023 MCHC (RBC) [Mass/Vol] 34.5 g/dL 32-36 [facility] No Panel InformationOrdered By: Dr. Lugo on 01-14-2023 Estimated Creatinine Clearance Calc 51.70 ml/min [facility] Estimated GFR (MDRD) Amer 93 mL/min >60 [facility] Comment on above: GFR Calc Estimated GFR (MDRD) Non-Af Amer 77 mL/min >60 [facility] Comment on above: Non- GFR Calc 31.5 pg 27.0-32.0 [facility] 11.6 % 11.6-14.6 [facility] 38.9 fl 35.1-43.9 [facility] 0.300 % 0.0-0.9 [facility] 0 % 0-5 [facility] 77 mL/min >60 [facility] 93 mL/min >60 [facility] 51.70 ml/min [facility] 26.2 RATIO 10-20 [facility] 3.7 g/dL 2.2-4.2 [facility] 247 U/L 73-393 [facility] 68 U/L 45-117 [facility] 48 U/L 13-56 [facility] 23.0 mmol/L 21.0-32.0 [facility] Platelets bldOrdered By: Dr. Lugo on 01-14-2023 Platelets (Bld) [#/Vol] 269 10*3/uL 150-450 [facility] Serum or plasma albumin lavelle urement (mass/volume)Ordered By: Dr. Lugo on 01-14-2023 Albumin [Mass/Vol] 3.8 g/dL 3.2-5.0 [facility] Serum or plasma albumin/glob ulin mass ratioOrdered By: Dr. Lugo on 01-14-2023 Albumin/Globulin [Mass ratio] 1.0 {ratio} 0.9-2.4 [facility] Serum or plasma calcium lavelle urement (mass/volume)Ordered By: Dr. Lugo on 01-14-2023 Calcium [Mass/Vol] 9.5 mg/dL 8.5-10.1 [facility] Serum or plasma creatinine m easurement (mass/volume)Ordered By: Dr. Lugo on 01-14-2023 Creatinine [Mass/Vol] 0.80 mg/dL 0.55-1.02 [facility] Comment on above: The validity of the calculated GFR & GFRAA in patients over 70 years has not been determined. Clinical correlation is essential. Serum or plasma urea nitroge n measurement (mass/volume)Ordered By: Dr. Lugo on 01-14-2023 Urea nitrogen [Mass/Vol] 21 mg/dL 7-18 [facility] Thin prep Papanicolaou smear with manual screeningOrdered By: Dr. Lugo on 01-14-2023 Thin prep Papanicolaou smear with manual screening 13 U/L 15-37 [facility] Thin prep Papanicolaou smear with manual screening 9 5-15 [facility] Absolute lymphocyte countOrd ered By: ED PROVIDER on 01-10-2023 Lymphocytes Auto (Unsp spec) [#/Vol] 2.48 10*3/uL 0.83-4.51 [facility] Basophil percentageOrdered B y: ED PROVIDER on 01-10-2023 Basophil percentage 0-5 SEEN /hpf 0-5 [facility] Basophil percentage 152 mg/dL 74-106 [facility] Basophil percentage 137 mmol/L 136-145 [facility] Basophil percentage 4.3 mmol/L 3.5-5.1 [facility] Basophil percentage 104 mmol/L 98-107 [facility] Basophils (Bld) [#/Vol] 17.1 10*3/uL 4.4-11.0 [facility] Basophils (Bld) [#/Vol] 14.0 10*3/uL 2.0-7.7 [facility] Basophils/100 WBC (Bld) 0.1 % 0-[address] [facility] Basophils/100 WBC (Bld) 81.8 % 47-[address] [facility] Basophils/100 WBC (Bld) 0.0 % 0-5 [facility] Chloride [Moles/Vol] 104 mmol/L 98-107 [facility] Eosinophils/100 WBC (Bld) 0.0 % 0-5 [facility] Glucose [Mass/Vol] 152 mg/dL 74-106 [facility] Comment on above: Fasting Glucose resu lt greater than or equal to 126 mg/dL suggests DIABETES MELLITUS per A.D.A. criteria. Neutrophils (Bld) [#/Vol] 14.0 10*3/uL 2.0-7.7 [facility] Neutrophils/100 WBC (Bld) 81.8 % 47-70 [facility] Potassium [Moles/Vol] 4.3 mmol/L 3.5-5.1 [facility] Sodium [Moles/Vol] 137 mmol/L 136-145 [facility] WBC (Bld) [#/Vol] 17.1 10*3/uL 4.4-11.0 [facility] Basophil percentageOrdered B y: Dr. Godoy on 01-10-2023 Basophil percentage 8.4 g/dL 6.4-8.2 [facility] Basophil percentage 0.60 mg/dL 0.20-1.00 [facility] Bilirubin [Mass/Vol] 0.60 mg/dL 0.20-1.00 [facility] Comment on above: For patients on eltr ombopag therapy, use of Dimension [place] TBIL is not recommended. Protein [Mass/Vol] 8.4 g/dL 6.4-8.2 [facility] Bilirubin Test strip Ql (U)O rdered By: ED PROVIDER on 01-10-2023 Bilirubin Ql (U) Negative Negative [facility] Blood erythrocytes count (nu mber/volume)Ordered By: ED PROVIDER on 01-10-2023 RBC (Bld) [#/Vol] 4.95 10*6/uL 4.2-5.4 [facility] Blood hemoglobin measurement (mass/volume)Ordered By: ED PROVIDER on 01-10-2023 Hemoglobin (Bld) [Mass/Vol] 15.6 g/dL 12.0-15.0 [facility] Blood lymphocytes/100 leukoc ytesOrdered By: ED PROVIDER on 01-10-2023 Lymphocytes/100 WBC (Bld) 14.5 % 19-41 [facility] Blood monocytes/100 leukocyt esOrdered By: ED PROVIDER on 01-10-2023 Monocytes/100 WBC (Bld) 3.2 % 0-[address] [facility] Blood platelet mean volumeOr dered By: ED PROVIDER on 01-10-2023 Platelet mean volume (Bld) [Entitic vol] 9.7 fL 6.2-12.0 [facility] Determination of erythrocyte mean corpuscular volume (MCV)Ordered By: ED PROVIDER on 01-10-2023 MCV (RBC) [Entitic vol] 91.3 fL 81-[address] [facility] Direct bilirubinOrdered By: Dr. Godoy on 01-10-2023 Bilirubin.direct [Mass/Vol] 0.17 mg/dL 0.00-0.30 [facility] Hematocrit Auto (Bld) [Volum e fraction]Ordered By: ED PROVIDER on 01-10-2023 Hematocrit (Bld) [Volume fraction] 45.2 % 37-47 [facility] Ketones Test strip Ql (U)Ord ered By: ED PROVIDER on 01-10-2023 Ketones Ql (U) Negative Negative [facility] Laboratory - Chemistry and C hemistry - challengeOrdered By: Dr. Godyo on 01-10-2023 ALP [Catalytic activity/Vol] 71 U/L 45-117 [facility] ALT [Catalytic activity/Vol] 57 U/L 13-56 [facility] Globulin (S) [Mass/Vol] 4.2 g/dL 2.2-4.[address] [facility] Lipase [Catalytic activity/Vol] 752 U/L 73-393 [facility] Laboratory - Chemistry and C hemistry - challengeOrdered By: ED PROVIDER on 01-10-2023 CO2 [Moles/Vol] 26.0 mmol/L 21.0-32.0 [facility] Urea nitrogen/Creatinine [Mass ratio] 24.2 mg/mg 10-20 [facility] Laboratory - Hematology and Cell countsOrdered By: ED PROVIDER on 01-10-2023 Erythrocyte distribution width (RBC) [Entitic vol] 39.4 fL 35.1-43.9 [facility] Erythrocyte distribution width (RBC) [Ratio] 11.9 % 11.6-14.6 [facility] Immature granulocytes/100 WBC (Bld) 0.400 % 0.0-0.9 [facility] Comment on above: IG% - Immature Granu locytes (promyelocytes, myelocytes and metamyelocytes) > 1% indicates that a LEFT SHIFT is Present. MCH (RBC) [Entitic mass] 31.5 pg 27.0-32.0 [facility] Nucleated RBC/100 WBC (Bld) [Ratio] 0 % 0-5 [facility] MCHC Auto (RBC) [Mass/Vol]Or dered By: ED PROVIDER on 01-10-2023 MCHC (RBC) [Mass/Vol] 34.5 g/dL 32-36 [facility] Mucus LM Ql (Urine sed)Order ed By: ED PROVIDER on 01-10-2023 Mucus Ql (Urine sed) 0 SEEN /hpf [facility] Nitrite Test strip Ql (U)Ord ered By: ED PROVIDER on 01-10-2023 Nitrite Ql (U) Negative Negative [facility] No Panel InformationOrdered By: ED PROVIDER on 01-10-2023 Estimated Creatinine Clearance Calc 49.83 ml/min [facility] Estimated GFR (MDRD) Amer 89 mL/min >60 [facility] Comment on above: GFR Calc Estimated GFR (MDRD) Non-Af Amer 74 mL/min >60 [facility] Comment on above: Non- GFR Calc 31.5 pg 27.0-32.0 [facility] 11.9 % 11.6-14.6 [facility] 39.4 fl 35.1-43.9 [facility] 0.400 % 0.0-0.9 [facility] 0 % 0-5 [facility] 74 mL/min >60 [facility] 89 mL/min >60 [facility] 49.83 ml/min [facility] 24.2 RATIO 10-20 [facility] 26.0 mmol/L 21.0-32.0 [facility] No Panel InformationOrdered By: Dr. Godoy on 01-10-2023 4.2 g/dL 2.2-4.2 [facility] 752 U/L 73-393 [facility] 71 U/L 45-117 [facility] 57 U/L 13-56 [facility] Platelets bldOrdered By: ED PROVIDER on 01-10-2023 Platelets (Bld) [#/Vol] 278 10*3/uL 150-450 [facility] Protein Test strip Ql (U)Ord ered By: ED PROVIDER on 01-10-2023 Protein Ql (U) 15 mg/dl Negative [facility] Serum or plasma albumin lavelle urement (mass/volume)Ordered By: Dr. Godoy on 01-10-2023 Albumin [Mass/Vol] 4.2 g/dL 3.2-5.0 [facility] Serum or plasma calcium lavelle urement (mass/volume)Ordered By: ED PROVIDER on 01-10-2023 Calcium [Mass/Vol] 10.2 mg/dL 8.5-10.1 [facility] Serum or plasma creatinine m easurement (mass/volume)Ordered By: ED PROVIDER on 01-10-2023 Creatinine [Mass/Vol] 0.83 mg/dL 0.55-1.02 [facility] Comment on above: The validity of the calculated GFR & GFRAA in patients over 70 years has not been determined. Clinical correlation is essential. Serum or plasma urea nitroge n measurement (mass/volume)Ordered By: ED PROVIDER on 01-10-2023 Urea nitrogen [Mass/Vol] 20 mg/dL 7-18 [facility] Squamous epithelial cells de tection in urine sediment by light microscopyOrdered By: ED PROVIDER on 01-10-2023 Epithelial cells.squamous LM Ql (Urine sed) 0 SEEN /hpf 5-10 [facility] Thin prep Papanicolaou smear with manual screeningOrdered By: Dr. Godoy on 01-10-2023 Thin prep Papanicolaou smear with manual screening 25 U/L 15-37 [facility] Thin prep Papanicolaou smear with manual screeningOrdered By: ED PROVIDER on 01-10-2023 Thin prep Papanicolaou smear with manual screening 7 5-15 [facility] Urine blood detectionOrdered By: ED PROVIDER on 01-10-2023 RBC Ql (U) 25 /ul Negative [facility] RBC Ql (U) 0 SEEN /hpf 0-5 [facility] Urine clarityOrdered By: ED PROVIDER on 01-10-2023 Clarity (U) Clear Clear [facility] Urine color determinationOrd ered By: ED PROVIDER on 01-10-2023 Color (U) Yellow Yellow [facility] Urine glucose detectionOrder ed By: ED PROVIDER on 01-10-2023 Glucose Ql (U) Normal mg/dl Normal [facility] Urine leukocyte esterase det ection by dipstickOrdered By: ED PROVIDER on 01-10-2023 Leukocyte esterase Test strip Ql (U) 25 /ul Negative [facility] Urine pHOrdered By: ED PROVI ANN on 01-10-2023 pH (U) 6.5 [pH] 5.0 - 8.0 [facility] Urine sediment bacteria coun t by microscopy (number/high power field)Ordered By: ED PROVIDER on 01-10-2023 Bacteria LM.HPF (Urine sed) [#/Area] 0 /[HPF] None Seen [facility] Urine specific gravity measu rementOrdered By: ED PROVIDER on 01-10-2023 Specific gravity (U) [Rel density] 1.015 1.002-1.03 0 [facility] Urobilinogen Auto test strip Ql (U)Ordered By: ED PROVIDER on 01-10-2023 Urobilinogen Ql (U) Normal mg/dl Normal [facility] Absolute lymphocyte countOrd ered By: Dr. Muñoz on 01-04-2023 Lymphocytes Auto (Unsp spec) [#/Vol] 4.80 10*3/uL 0.83-4.51 [facility] Basophil percentageOrdered B y: Dr. Muñoz on 01-04-2023 Basophil percentage 78 mg/dL 74-106 [facility] Basophil percentage 141 mmol/L 136-145 [facility] Basophil percentage 4.3 mmol/L 3.5-5.1 [facility] Basophil percentage 106 mmol/L 98-107 [facility] Basophils (Bld) [#/Vol] 15.9 10*3/uL 4.4-11.0 [facility] Basophils (Bld) [#/Vol] 10.0 10*3/uL 2.0-7.7 [facility] Basophils/100 WBC (Bld) 0.1 % 0-[address] [facility] Basophils/100 WBC (Bld) 62.8 % 47-[address] [facility] Basophils/100 WBC (Bld) 0.2 % 0-[address] [facility] Chloride [Moles/Vol] 106 mmol/L 98-107 [facility] Eosinophils/100 WBC (Bld) 0.2 % 0-5 [facility] Glucose [Mass/Vol] 78 mg/dL 74-106 [facility] Neutrophils (Bld) [#/Vol] 10.0 10*3/uL 2.0-7.7 [facility] Neutrophils/100 WBC (Bld) 62.8 % 47-70 [facility] Potassium [Moles/Vol] 4.3 mmol/L 3.5-5.1 [facility] Comment on above: Slight Hemolysis, Re sult may be falsely increased. Sodium [Moles/Vol] 141 mmol/L 136-145 [facility] WBC (Bld) [#/Vol] 15.9 10*3/uL 4.4-11.0 [facility] Blood erythrocytes count (nu mber/volume)Ordered By: Dr. Muñoz on 01-04-2023 RBC (Bld) [#/Vol] 4.32 10*6/uL 4.2-5.4 [facility] Blood hemoglobin measurement (mass/volume)Ordered By: Dr. Muñoz on 01-04-2023 Hemoglobin (Bld) [Mass/Vol] 13.6 g/dL 12.0-15.0 [facility] Blood lymphocytes/100 leukoc ytesOrdered By: Dr. Muñoz on 01-04-2023 Lymphocytes/100 WBC (Bld) 30.3 % 19-41 [facility] Blood monocytes/100 leukocyt esOrdered By: Dr. Muñoz on 01-04-2023 Monocytes/100 WBC (Bld) 6.2 % 0-[address] [facility] Blood platelet mean volumeOr dered By: Dr. Muñoz on 01-04-2023 Platelet mean volume (Bld) [Entitic vol] 10.0 fL 6.2-12.0 [facility] Determination of erythrocyte mean corpuscular volume (MCV)Ordered By: Dr. Muñoz on 01-04-2023 MCV (RBC) [Entitic vol] 92.6 fL 81-[address] [facility] Hematocrit Auto (Bld) [Volum e fraction]Ordered By: Dr. Muñoz on 01-04-2023 Hematocrit (Bld) [Volume fraction] 40.0 % 37-47 [facility] Laboratory - Chemistry and C hemistry - challengeOrdered By: Dr. Muñoz on 01-04-2023 CO2 [Moles/Vol] 28.0 mmol/L 21.0-32.0 [facility] Urea nitrogen/Creatinine [Mass ratio] 17.4 mg/mg 10- [facility] Laboratory - Hematology and Cell countsOrdered By: Dr. Muñoz on 01-04-2023 Erythrocyte distribution width (RBC) [Entitic vol] 40.1 fL 35.1-43.9 [facility] Erythrocyte distribution width (RBC) [Ratio] 11.8 % 11.6-14.6 [facility] Immature granulocytes/100 WBC (Bld) 0.400 % 0.0-0.9 [facility] Comment on above: IG% - Immature Granu locytes (promyelocytes, myelocytes and metamyelocytes) > 1% indicates that a LEFT SHIFT is Present. MCH (RBC) [Entitic mass] 31.5 pg 27.0-32.0 [facility] Nucleated RBC/100 WBC (Bld) [Ratio] 0 % 0-5 [facility] MCHC Auto (RBC) [Mass/Vol]Or dered By: Dr. Muñoz on 01-04-2023 MCHC (RBC) [Mass/Vol] 34.0 g/dL 32-36 [facility] No Panel InformationOrdered By: Dr. Muñoz on 01-04-2023 Estimated Creatinine Clearance Calc 59.94 ml/min [facility] Estimated GFR (MDRD) Amer 110 mL/min >60 [facility] Comment on above: GFR Calc Estimated GFR (MDRD) Non-Af Amer 91 mL/min >60 [facility] Comment on above: Non- GFR Calc 31.5 pg 27.0-32.0 [facility] 11.8 % 11.6-14.6 [facility] 40.1 fl 35.1-43.9 [facility] 0.400 % 0.0-0.9 [facility] 0 % 0-5 [facility] 91 mL/min >60 [facility] 110 mL/min >60 [facility] 59.94 ml/min [facility] 17.4 RATIO 10- [facility] 28.0 mmol/L 21.0-32.0 [facility] No Panel InformationOrdered By: Arthur Bull on 01-04-2023 Giardia Antigen (DONELL) [facility] Ova and parasitesOrdered By: Arthur Bull on 01-04-2023 Ova and parasites identified LM Nom (Unsp spec) [facility] Platelets bldOrdered By: Dr. Muñoz on 01-04-2023 Platelets (Bld) [#/Vol] 278 10*3/uL 150-450 [facility] Serum or plasma calcium lavelle urement (mass/volume)Ordered By: Dr. Muñoz on 01-04-2023 Calcium [Mass/Vol] 8.8 mg/dL 8.5-10.1 [facility] Serum or plasma creatinine m easurement (mass/volume)Ordered By: Dr. Muñoz on 01-04-2023 Creatinine [Mass/Vol] 0.69 mg/dL 0.55-1.02 [facility] Comment on above: The validity of the calculated GFR & GFRAA in patients over 70 years has not been determined. Clinical correlation is essential. Serum or plasma urea nitroge n measurement (mass/volume)Ordered By: Dr. Muñoz on 01-04-2023 Urea nitrogen [Mass/Vol] 12 mg/dL 7-18 [facility] Thin prep Papanicolaou smear with manual screeningOrdered By: Dr. Muñoz on 01-04-2023 Thin prep Papanicolaou smear with manual screening 7 5-15 [facility] Basophil percentageOrdered B y: Arthur Bull on 01-03-2023 Amylase [Catalytic activity/Vol] 33 U/L 25-115 [facility] Basophil percentage 33 U/L 25-115 [facility] Blood manual differential co mment interpretation (narrative result)Ordered By: Dr. Muñoz on 01-03-2023 Manual differential comment Rodrigo (Bld) [Interp] COMMENT [facility] Comment on above: LYMPHOCYTOSIS. Erythrocyte sedimentation ra teOrdered By: Arthur Bull on 01-03-2023 ESR (Bld) [Velocity] 24 mm/h 0-30 [facility] Laboratory - Chemistry and C hemistry - challengeOrdered By: Arthur Bull on 01-03-2023 Lipase [Catalytic activity/Vol] 141 U/L 73-393 [facility] No Panel InformationOrdered By: Arthur Bull on 01-03-2023 141 U/L 73-393 [facility] Serum or plasma C reactive p rotein measurement (mass/volume)Ordered By: Arthur Bull on 01-03-2023 CRP [Mass/Vol] mg/L 0.0-3.0 [facility] Comment on above: C-Reactive Protein ( CRP) provides useful information for thediagnosis, therapy and monitoring of inflammatory processesand associated diseases. For the evaluation of Relative Riskfor Cardiovascular Disease, a High Sensitivity CRP (HSCRP)should be ordered. No Panel InformationOrdered By: Arthur Bull on 01-02-2023 Immunoglobulin G4 32 mg/dL 2-96 [facility] 32 mg/dL 2-96 [facility] Serum IgG subclass 1 measure ment (mass/volume)Ordered By: Arthur Bull on 01-02-2023 IgG subclass 1 (S) [Mass/Vol] 732 mg/dL 248-810 [facility] Serum IgG subclass 2 measure ment (mass/volume)Ordered By: Arthur Bull on 01-02-2023 IgG subclass 2 (S) [Mass/Vol] 266 mg/dL 130-555 [facility] Serum IgG subclass 3 measure ment (mass/volume)Ordered By: Arthur Bull on 01-02-2023 IgG subclass 3 (S) [Mass/Vol] 13 mg/dL 15-102 [facility] Serum mitochondria antibody detectionOrdered By: Arthur Bull on 01-02-2023 Mitochondria Ab Ql (S) <20.0 Units 0.0-20.0 [facility] Comment on above: Negative 0.0 - 20.0 Equivocal 20.1 - 24.9 Positive >24.9Mitochondrial (M2) Antibodies are found in 90-96% ofpatients with primary biliary cirrhosis.Performed at: [facility] Lab[address] [id number] Director: Saad Hernandez PhD, Phone: [phone] Serum or plasma IgG measurem ent (mass/volume)Ordered By: Arthur Bull on 01-02-2023 IgG [Mass/Vol] 1144 mg/dL [phone] [facility] Serum or plasma actin IgG an tibody assay (units/volume)Ordered By: Arthur Bull on 01-02-2023 Actin IgG Qn 11 Units 0-19 [facility] Comment on above: Negative 0 - 19 Weak positive 20 - 30 Moderate to strong positive >30 Actin Antibodies are found in 52-85% of patients with autoimmune hepatitis or chronic active hepatitis and in 22% of patients with primary biliary cirrhosis.Performed at: [facility] [address] [id number] Director: Saad Hernandez PhD, Phone: [phone] Serum or plasma [id number] protein tumor marker measurement (units/volume)Ordered By: Arthur Bull on 01-02-2023 AFP.tumor marker Qn 2.5 ng/mL 0.0-9.2 [facility] Comment on above: [facility] El ectrochemiluminescence Immunoassay(ECLIA)Values obtained with different assay methods or kits cannotbe used interchangeably. Results cannot be interpreted asabsolute evidence of the presence or absence of malignantdisease.This test is not interpretable in females.Performed at: [facility] [id number] [place], [place] [id number] Director: Saad Hernandez PhD, Phone: [phone] Serum or plasma carcinoembry onic antigen measurement (mass/volume)Ordered By: Arthur Bull on 01-02-2023 Carcinoembryonic Ag [Mass/Vol] 2.4 ng/mL 0.0-4.7 [facility] Comment on above: Nonsmokers <3.9 Smok ers <5.6[facility] [employer] Electrochemiluminescence Immunoassay(ECLIA)Values obtained with different assay methods or kitscannot be used interchangeably. Results cannot beinterpreted as absolute evidence of the presence orabsence of malignant disease. Basophil percentageOrdered B y: Dr. Muñoz on 01-01-2023 Basophil percentage 7.7 g/dL 6.4-8.2 [facility] Basophil percentage 0.60 mg/dL 0.20-1.00 [facility] Bilirubin [Mass/Vol] 0.60 mg/dL 0.20-1.00 [facility] Comment on above: For patients on eltr ombopag therapy, use of Dimension [place] TBIL is not recommended. Protein [Mass/Vol] 7.7 g/dL 6.4-8.2 [facility] Laboratory - Chemistry and C hemistry - challengeOrdered By: Dr. Muñoz on 01-01-2023 ALP [Catalytic activity/Vol] 73 U/L 45-117 [facility] ALT [Catalytic activity/Vol] 93 U/L [facility] Globulin (S) [Mass/Vol] 3.9 g/dL 2.2-4.[address] [facility] No Panel InformationOrdered By: Dr. Muñoz on 01-01-2023 3.9 g/dL 2.2-4.2 [facility] 73 U/L 45-117 [facility] 93 U/L [facility] Serum or plasma albumin lavelle urement (mass/volume)Ordered By: Dr. Muñoz on 01-01-2023 Albumin [Mass/Vol] 3.8 g/dL 3.2-5.0 [facility] Serum or plasma albumin/glob ulin mass ratioOrdered By: Dr. Muñoz on 01-01-2023 Albumin/Globulin [Mass ratio] 1.0 {ratio} 0.9-2.4 [facility] Thin prep Papanicolaou smear with manual screeningOrdered By: Dr. Muñoz on 01-01-2023 Thin prep Papanicolaou smear with manual screening 43 U/L 15-37 [facility] No Panel InformationOrdered By: Arthur Bull on 12-31-2022 Hepatitis A IgM Antibody Negative Negative [facility] Hepatitis B Core IgM Antibody Negative Negative [facility] Hepatitis C Antibody (EIA) Non-Reactive Non Reactive [facility] Hepatitis C Antibody Comment Comment . [facility] Comment on above: Not infected with HC V unless early or acute infection issuspected (which may be delayed in an immunocompromisedindividual), or other evidence exists to indicate HCVinfection.Performed at: [facility] [id number] Director: Saad Hernandez PhD, Phone: [phone] Negative Negative [facility] Non-Reactive Non Reactive [facility] Comment . [facility] Qualitative QuantiFERON-TB g old in tube testOrdered By: Arthur Bull on 12-31-2022 M. tuberculosis tuberculin stim IFN-g Ql (Bld) 0.07 IU/mL . [facility] Serum or plasma hepatitis B virus surface antigen detection by immunoassayOrdered By: Arthur Bull on 12-31-2022 HBV surface Ag IA Ql Negative Negative [facility] Thin prep Papanicolaou smear with manual screeningOrdered By: Arthur Bull on 12-31-2022 Thin prep Papanicolaou smear with manual screening Comment . [facility] Comment on above: QuantiFERON-TB Gold Plus is [...] smear with manual screening 0.06 IU/mL . [facility] Thin prep Papanicolaou smear with manual screening 0.04 IU/mL . [facility] Thin prep Papanicolaou smear with manual screening > 10.00 IU/mL . [facility] Thin prep Papanicolaou smear with manual screening Negative Negative [facility] Comment on above: No response to M [...] on 12-30-2022 Basophil percentage 1.0 mmol/L 0.4-2.0 [facility] Lactate [Moles/Vol] 1.0 mmol/L 0.4-2.0 [facility] Absolute lymphocyte countOrd ered By: Dr. Henry on 12-28-2022 Lymphocytes Auto (Unsp spec) [#/Vol] 3.05 10*3/uL 0.83-4.51 [facility] Basophil percentageOrdered B y: Dr. Henry on 12-28-2022 Basophil percentage 0-5 SEEN /hpf 0-5 [facility] Basophil percentage 131 mg/dL 74-106 [facility] Basophil percentage 138 mmol/L 136-145 [facility] Basophil percentage 4.1 mmol/L 3.5-5.1 [facility] Basophil percentage 106 mmol/L 98-107 [facility] Basophil percentage 1.2 mmol/L 0.4-2.0 [facility] Basophils (Bld) [#/Vol] 10.5 10*3/uL 4.4-11.0 [facility] Basophils (Bld) [#/Vol] 6.6 10*3/uL 2.0-7.7 [facility] Basophils/100 WBC (Bld) 0.4 % 0-[address] [facility] Basophils/100 WBC (Bld) 62.6 % 47-[address] [facility] Basophils/100 WBC (Bld) 2.5 % 0-5 [facility] Chloride [Moles/Vol] 106 mmol/L 98-107 [facility] Eosinophils/100 WBC (Bld) 2.5 % 0-5 [facility] Glucose [Mass/Vol] 131 mg/dL 74-106 [facility] Comment on above: Fasting Glucose resu lt greater than or equal to 126 mg/dL suggests DIABETES MELLITUS per A.D.A. criteria. Lactate [Moles/Vol] 1.2 mmol/L 0.4-2.0 [facility] Neutrophils (Bld) [#/Vol] 6.6 10*3/uL 2.0-7.7 [facility] Neutrophils/100 WBC (Bld) 62.6 % 47-70 [facility] Potassium [Moles/Vol] 4.1 mmol/L 3.5-5.1 [facility] Comment on above: Moderate Hemolysis, Result may be falsely increased. Sodium [Moles/Vol] 138 mmol/L 136-145 [facility] WBC (Bld) [#/Vol] 10.5 10*3/uL 4.4-11.0 [facility] Bilirubin Test strip Ql (U)O rdered By: Dr. Henry on 12-28-2022 Bilirubin Ql (U) Negative Negative [facility] Blood erythrocytes count (nu mber/volume)Ordered By: Dr. Henry on 12-28-2022 RBC (Bld) [#/Vol] 4.35 10*6/uL 4.2-5.4 [facility] Blood hemoglobin measurement (mass/volume)Ordered By: Dr. Henry on 12-28-2022 Hemoglobin (Bld) [Mass/Vol] 13.8 g/dL 12.0-15.0 [facility] Blood lymphocytes/100 leukoc ytesOrdered By: Dr. Henry on 12-28-2022 Lymphocytes/100 WBC (Bld) 29.1 % 19-41 [facility] Blood monocytes/100 leukocyt esOrdered By: Dr. Henry on 12-28-2022 Monocytes/100 WBC (Bld) 5.2 % 0-[address] [facility] Blood platelet mean volumeOr dered By: Dr. Henry on 12-28-2022 Platelet mean volume (Bld) [Entitic vol] 9.9 fL 6.2-12.0 [facility] Determination of erythrocyte mean corpuscular volume (MCV)Ordered By: Dr. Henry on 12-28-2022 MCV (RBC) [Entitic vol] 91.3 fL 81-[address] [facility] Hematocrit Auto (Bld) [Volum e fraction]Ordered By: Dr. Henry on 12-28-2022 Hematocrit (Bld) [Volume fraction] 39.7 % 37-47 [facility] Ketones Test strip Ql (U)Ord ered By: Dr. Henry on 12-28-2022 Ketones Ql (U) Negative Negative [facility] Laboratory - Chemistry and C hemistry - challengeOrdered By: Dr. Henry on 12-28-2022 CO2 [Moles/Vol] 24.0 mmol/L 21.0-32.0 [facility] Urea nitrogen/Creatinine [Mass ratio] 18.5 mg/mg 10-20 [facility] Laboratory - Hematology and Cell countsOrdered By: Dr. Henry on 12-28-2022 Erythrocyte distribution width (RBC) [Entitic vol] 39.6 fL 35.1-43.9 [facility] Erythrocyte distribution width (RBC) [Ratio] 11.8 % 11.6-14.6 [facility] Immature granulocytes/100 WBC (Bld) 0.200 % 0.0-0.9 [facility] Comment on above: IG% - Immature Granu locytes (promyelocytes, myelocytes and metamyelocytes) > 1% indicates that a LEFT SHIFT is Present. MCH (RBC) [Entitic mass] 31.7 pg 27.0-32.0 [facility] Nucleated RBC/100 WBC (Bld) [Ratio] 0 % 0-5 [facility] MCHC Auto (RBC) [Mass/Vol]Or dered By: Dr. Henry on 12-28-2022 MCHC (RBC) [Mass/Vol] 34.8 g/dL 32-36 [facility] Mucus LM Ql (Urine sed)Order ed By: Dr. Henry on 12-28-2022 Mucus Ql (Urine sed) 0 SEEN /hpf [facility] Nitrite Test strip Ql (U)Ord ered By: Dr. Henry on 12-28-2022 Nitrite Ql (U) Negative Negative [facility] No Panel InformationOrdered By: Dr. Henry on 12-28-2022 Estimated Creatinine Clearance Calc 59.09 ml/min [facility] Estimated GFR (MDRD) Amer 108 mL/min >60 [facility] Comment on above: GFR Calc Estimated GFR (MDRD) Non-Af Amer 89 mL/min >60 [facility] Comment on above: Non- GFR Calc 31.7 pg 27.0-32.0 [facility] 11.8 % 11.6-14.6 [facility] 39.6 fl 35.1-43.9 [facility] 0.200 % 0.0-0.9 [facility] 0 % 0-5 [facility] 89 mL/min >60 [facility] 108 mL/min >60 [facility] 59.09 ml/min [facility] 18.5 RATIO 10-20 [facility] 24.0 mmol/L 21.0-32.0 [facility] Platelets bldOrdered By: Dr. Henry on 12-28-2022 Platelets (Bld) [#/Vol] 282 10*3/uL 150-450 [facility] Protein Test strip Ql (U)Ord ered By: Dr. Henry on 12-28-2022 Protein Ql (U) Negative Negative [facility] Serum or plasma calcium lavelle urement (mass/volume)Ordered By: Dr. Henry on 12-28-2022 Calcium [Mass/Vol] 9.1 mg/dL 8.5-10.1 [facility] Serum or plasma creatinine m easurement (mass/volume)Ordered By: Dr. Henry on 12-28-2022 Creatinine [Mass/Vol] 0.70 mg/dL 0.55-1.02 [facility] Comment on above: The validity of the calculated GFR & GFRAA in patients over 70 years has not been determined. Clinical correlation is essential. Serum or plasma urea nitroge n measurement (mass/volume)Ordered By: Dr. Henry on 12-28-2022 Urea nitrogen [Mass/Vol] 13 mg/dL 7-18 [facility] Squamous epithelial cells de tection in urine sediment by light microscopyOrdered By: Dr. Henry on 12-28-2022 Epithelial cells.squamous LM Ql (Urine sed) 0 SEEN /hpf 5-10 [facility] Thin prep Papanicolaou smear with manual screeningOrdered By: Dr. Henry on 12-28-2022 Thin prep Papanicolaou smear with manual screening 8 5-15 [facility] Urine blood detectionOrdered By: Dr. Henry on 12-28-2022 RBC Ql (U) 50 /ul Negative [facility] RBC Ql (U) 0 SEEN /hpf 0-5 [facility] Urine clarityOrdered By: Dr. Henry on 12-28-2022 Clarity (U) Clear Clear [facility] Urine color determinationOrd ered By: Dr. Henry on 12-28-2022 Color (U) Yellow Yellow [facility] Urine glucose detectionOrder ed By: Dr. Henry on 12-28-2022 Glucose Ql (U) Normal mg/dl Normal [facility] Urine leukocyte esterase det ection by dipstickOrdered By: Dr. Henry on 12-28-2022 Leukocyte esterase Test strip Ql (U) Negative Negative [facility] Urine pHOrdered By: Dr. Juan perry on 12-28-2022 pH (U) 6.0 [pH] 5.0 - 8.0 [facility] Urine sediment bacteria coun t by microscopy (number/high power field)Ordered By: Dr. Henry on 12-28-2022 Bacteria LM.HPF (Urine sed) [#/Area] RARE /hpf None Seen [facility] Urine specific gravity measu rementOrdered By: Dr. Henry on 12-28-2022 Specific gravity (U) [Rel density] 1.015 1.002-1.03 0 [facility] Urobilinogen Auto test strip Ql (U)Ordered By: Dr. Henry on 12-28-2022 Urobilinogen Ql (U) Normal mg/dl Normal [facility] Absolute lymphocyte countOrd ered By: Arthur Bull on 12-27-2022 Lymphocytes Auto (Unsp spec) [#/Vol] 3.35 10*3/uL 0.83-4.51 [facility] Atypical perinuclear antineu trophil cytoplasmic antibodies measurementOrdered By: Arthur Bull on 12-27-2022 Neutrophil cytoplasmic Ab.perinuclear.atypical IF (S) [Titer] <1:20 titer Neg:<1:20 [facility] Comment on above: The atypical pANCA p attern has been observed in asignificant percentage of patients with ulcerative colitis,primary sclerosing cholangitis and autoimmune hepatitis.Performed at: [facility] [address] [id number] Director: Saad Hernandez PhD, Phone: [phone] at: [facility] [id number] Director: Marcio Hennessy MD, Phone: [phone] Basophil percentageOrdered B y: Arthur Bull on 12-27-2022 Basophil percentage < 0.2 AI 0.0-0.9 [facility] Basophil percentage 140 mg/dL 74-106 [facility] Basophil percentage 7.9 g/dL 6.4-8.2 [facility] Basophil percentage 0.40 mg/dL 0.20-1.00 [facility] Basophil percentage 140 mmol/L 136-145 [facility] Basophil percentage 4.1 mmol/L 3.5-5.1 [facility] Basophil percentage 110 mmol/L 98-107 [facility] Basophil percentage 135 U/L 84-246 [facility] Basophils (Bld) [#/Vol] 12.0 10*3/uL 4.4-11.0 [facility] Basophils (Bld) [#/Vol] 7.7 10*3/uL 2.0-7.7 [facility] Basophils/100 WBC (Bld) 0.5 % 0-[address] [facility] Basophils/100 WBC (Bld) 63.9 % 47-70 [facility] Basophils/100 WBC (Bld) 2.6 % 0-5 [facility] Bilirubin [Mass/Vol] 0.40 mg/dL 0.20-1.00 [facility] Comment on above: For patients on eltr ombopag therapy, use of Dimension [place] TBIL is not recommended. Chloride [Moles/Vol] 110 mmol/L 98-107 [facility] Eosinophils/100 WBC (Bld) 2.6 % 0-5 [facility] Glucose [Mass/Vol] 140 mg/dL 74-106 [facility] Comment on above: Fasting Glucose resu lt greater than or equal to 126 mg/dL suggests DIABETES MELLITUS per A.D.A. criteria. LDH [Catalytic activity/Vol] 135 U/L 84-246 [facility] Neutrophils (Bld) [#/Vol] 7.7 10*3/uL 2.0-7.7 [facility] Neutrophils/100 WBC (Bld) 63.9 % 47-70 [facility] Potassium [Moles/Vol] 4.1 mmol/L 3.5-5.1 [facility] Protein [Mass/Vol] 7.9 g/dL 6.4-8.2 [facility] Sodium [Moles/Vol] 140 mmol/L 136-145 [facility] WBC (Bld) [#/Vol] 12.0 10*3/uL 4.4-11.0 [facility] Blood erythrocytes count (nu mber/volume)Ordered By: Arthur Bull on 12-27-2022 RBC (Bld) [#/Vol] 4.52 10*6/uL 4.2-5.4 [facility] Blood hemoglobin measurement (mass/volume)Ordered By: Arthur Bull on 12-27-2022 Hemoglobin (Bld) [Mass/Vol] 14.2 g/dL 12.0-15.0 [facility] Blood lymphocytes/100 leukoc ytesOrdered By: Arthur Bull on 12-27-2022 Lymphocytes/100 WBC (Bld) 28.0 % 19-41 [facility] Blood monocytes/100 leukocyt esOrdered By: Arthur Bull on 12-27-2022 Monocytes/100 WBC (Bld) 4.6 % 0-[address] [facility] Blood platelet mean volumeOr dered By: Arthur Bull on 12-27-2022 Platelet mean volume (Bld) [Entitic vol] 9.7 fL 6.2-12.0 [facility] Clostridium difficile detect ion by polymerase chain reactionOrdered By: Arthur Bull on 12-27-2022 C. difficile DNA ROBIN+probe Ql (Unsp spec) [facility] Determination of erythrocyte mean corpuscular volume (MCV)Ordered By: Arthur Bull on 12-27-2022 MCV (RBC) [Entitic vol] 94.2 fL 81-[address] [facility] Erythrocyte sedimentation ra teOrdered By: Arthur Bull on 12-27-2022 ESR (Bld) [Velocity] 33 mm/h 0-30 [facility] Hematocrit Auto (Bld) [Volum e fraction]Ordered By: Arthur Bull on 12-27-2022 Hematocrit (Bld) [Volume fraction] 42.6 % 37-47 [facility] Interpretation of serum or p lasma protein pattern by immunofixation (narrative resultOrdered By: Arthur Bull on 12-27-2022 Protein Fractions Immunofixation Rodrigo [Interp] See comment [facility] Comment on above: Result: Not Observed Laboratory - Chemistry and C hemistry - challengeOrdered By: Arthur Bull on 12-27-2022 ALP [Catalytic activity/Vol] 80 U/L 45-117 [facility] ALT [Catalytic activity/Vol] 25 U/L 13-56 [facility] CO2 [Moles/Vol] 26.0 mmol/L 21.0-32.0 [facility] Globulin (S) [Mass/Vol] 4.0 g/dL 2.2-4.[address] [facility] Urea nitrogen/Creatinine [Mass ratio] 15.5 mg/mg 10-20 [facility] Laboratory - Hematology and Cell countsOrdered By: Arthur Bull on 12-27-2022 Erythrocyte distribution width (RBC) [Entitic vol] 40.9 fL 35.1-43.9 [facility] Erythrocyte distribution width (RBC) [Ratio] 11.9 % 11.6-14.6 [facility] Immature granulocytes/100 WBC (Bld) 0.400 % 0.0-0.9 [facility] Comment on above: IG% - Immature Granu locytes (promyelocytes, myelocytes and metamyelocytes) > 1% indicates that a LEFT SHIFT is Present. MCH (RBC) [Entitic mass] 31.4 pg 27.0-32.0 [facility] Nucleated RBC/100 WBC (Bld) [Ratio] 0 % 0-5 [facility] MCHC Auto (RBC) [Mass/Vol]Or dered By: Arthur Bull on 12-27-2022 MCHC (RBC) [Mass/Vol] 33.3 g/dL 32-36 [facility] No Panel InformationOrdered By: Arthur Bull on 12-27-2022 Miscellaneous Test See comment [facility] Comment on above: TEST RESULT LIMITSSt ool Culture Salmonella/Shigella Screen Final report Result 1 No Salmonella or Shigella recovered. Campylobacter Culture Final report Result 1 No Campylobacter species isolated. E coli Shiga Toxin EIA Negative Negative TESTING PERFORMED AT [facility]. ORIGINAL REPORT ON FILE IN LAB CONTAINS ADDITIONAL TEST SITE INFORMATION. Stool Calprotectin 37 ug/g 0-120 [facility] Comment on above: Concentration Interp retation Follow-Up<16 - 50 ug/g Normal None>50 -120 ug/g Borderline Re-evaluate in 4-6 weeks >120 ug/g Abnormal Repeat as clinically indicatedPerformed at: [facility] - [facility] [id number] Director: Marcio Hennessy MD, Phone: [phone] Stool Pancreatic Elastase 103 >200 [facility] Comment on above: Result Units: ug Tiffanie st./g Severe Pancreatic Insufficiency: <100 Moderate Pancreatic Insufficiency: 100 - 200 Normal: >200Performed at: [facility] - [facility] [address] [id number] Director: Marcio Hennessy MD, Phone: [phone] See comment [facility] 37 ug/g 0-120 [facility] 103 >200 [facility] Addendum Document Comment . [facility] Comment on above: Protein electrophore sis scan will follow via computer,mail, or support assistant delivery. Centromere B Antibody <0.2 AI 0.0-0.9 [facility] Endomysial IgA Antibody Negative Negative [facility] Estimated GFR (MDRD) Amer 88 mL/min >60 [facility] Comment on above: GFR Calc Estimated GFR (MDRD) Non-Af Amer 73 mL/min >60 [facility] Comment on above: Non- GFR Calc Immunoglobulin E 551 IU/mL 6-495 [facility] PBX INSPECTOR Antibody 0.5 AI 0.0-0.9 [facility] 31.4 pg 27.0-32.0 [facility] 11.9 % 11.6-14.6 [facility] 40.9 fl 35.1-43.9 [facility] 0.400 % 0.0-0.9 [facility] 0 % 0-5 [facility] 73 mL/min >60 [facility] 88 mL/min >60 [facility] 15.5 RATIO 10-20 [facility] 80 U/L 45-117 [facility] 25 U/L 13-56 [facility] 26.0 mmol/L 21.0-32.0 [facility] 551 IU/mL 6-495 [facility] 0.5 AI 0.0-0.9 [facility] Negative Negative [facility] <0.2 AI 0.0-0.9 [facility] Platelets bldOrdered By: Steve Bull on 12-27-2022 Platelets (Bld) [#/Vol] 292 10*3/uL 150-450 [facility] Serum DNA double strand anti body assay (units/volume)Ordered By: Arthur Bull on 12-27-2022 DNA double strand Ab Qn (S) [IU]/mL 0-9 [facility] Comment on above: Negative <5 Equivoca l 5 - 9 Positive >9 Serum Ruby-1 antibody assay (u nits/volume)Ordered By: Arthur Bull on 12-27-2022 Ruby-1 extractable nuclear Ab Qn (S) <0.2 AI 0.0-0.9 [facility] Serum Scl-70 extractable nuc lear antibody assay (units/volume)Ordered By: Arthur Bull on 12-27-2022 SCL-70 extractable nuclear Ab Qn (S) 0.7 AI 0.0-0.9 [facility] Serum Garcia extractable nucl ear antibody detectionOrdered By: Arthur Bull on 12-27-2022 Garcia extractable nuclear Ab Ql (S) <0.2 AI 0.0-0.9 [facility] Serum [id number] measu rement by electrophoresisOrdered By: Arthur Bull on 12-27-2022 Alpha 1 globulin Elph [Mass/Vol] 0.2 g/dL 0.0-0.4 [facility] Alpha 1 globulin Elph [Mass/Vol] 1.0 g/dL 0.4-1.0 [facility] Serum classic neutrophil cyt oplasmic antibody assay (units/volume)Ordered By: Arthur Bull on 12-27-2022 Neutrophil cytoplasmic Ab.classic Qn (S) <1:20 titer Neg:<1:20 [facility] Serum globulin measurement ( mass/volume)Ordered By: Arthur Bull on 12-27-2022 Globulin (S) [Mass/Vol] 3.4 g/dL 2.2-3.[address] [facility] Serum or plasma C reactive p rotein measurement (mass/volume)Ordered By: Arthur Bull on 12-27-2022 CRP [Mass/Vol] 3.50 mg/L 0.0-3.0 [facility] Comment on above: C-Reactive Protein ( CRP) provides useful information for thediagnosis, therapy and monitoring of inflammatory processesand associated diseases. For the evaluation of Relative Riskfor Cardiovascular Disease, a High Sensitivity CRP (HSCRP)should be ordered. Serum or plasma IgA measurem ent (mass/volume)Ordered By: Arthur Bull on 12-27-2022 IgA [Mass/Vol] 257 mg/dL 87-352 [facility] Serum or plasma IgG measurem ent (mass/volume)Ordered By: Arthur Bull on 12-27-2022 IgG [Mass/Vol] 1296 mg/dL 586-1602 [facility] Serum or plasma IgM measurem ent (mass/volume)Ordered By: Arthur Bull on 12-27-2022 IgM [Mass/Vol] 34 mg/dL 26-217 [facility] Serum or plasma albumin lavelle urement (mass/volume)Ordered By: Arthur Bull on 12-27-2022 Albumin [Mass/Vol] 3.9 g/dL 2.9-4.4 [facility] Serum or plasma albumin/glob ulin mass ratioOrdered By: Arthur Bull on 12-27-2022 Albumin/Globulin [Mass ratio] 1.0 {ratio} 0.9-2.4 [facility] Serum or plasma beta globuli n measurement by electrophoresis (mass/volume)Ordered By: Arthur Bull on 12-27-2022 Beta globulin Elph [Mass/Vol] 1.1 g/dL 0.7-1.3 [facility] Serum or plasma calcium lavelle urement (mass/volume)Ordered By: Arthur Bull on 12-27-2022 Calcium [Mass/Vol] 9.1 mg/dL 8.5-10.1 [facility] Serum or plasma creatinine m easurement (mass/volume)Ordered By: Arthur Bull on 12-27-2022 Creatinine [Mass/Vol] 0.84 mg/dL 0.55-1.02 [facility] Comment on above: The validity of the calculated GFR & GFRAA in patients over 70 years has not been determined. Clinical correlation is essential. Serum or plasma gamma globul in measurement by electrophoresis (mass/volume)Ordered By: Arthur Bull on 12-27-2022 Gamma globulin Elph [Mass/Vol] 1.2 g/dL 0.4-1.8 [facility] Serum or plasma immunoelectr ophoresis interpretation (nominal result)Ordered By: Arthur Bull on 12-27-2022 Interpretation IEP [Interp] Comment . [facility] Comment on above: No monoclonality det ected. Serum or plasma urea nitroge n measurement (mass/volume)Ordered By: Arthur Bull on 12-27-2022 Urea nitrogen [Mass/Vol] 13 mg/dL 7-18 [facility] Serum perinuclear neutrophil cytoplasmic antibody titer by immunofluorescenceOrdered By: Arthur Bull on 12-27-2022 Neutrophil cytoplasmic Ab.perinuclear IF (S) [Titer] <1:20 titer Neg:<1:20 [facility] Comment on above: The presence of posi tive fluorescence exhibiting P-ANCA orC-ANCA patterns alone is not specific for the diagnosis ofWegener's Granulomatosis (WG) or microscopic polyangiitis.Decisions about treatment should not be based solely onANCA IFA results. The [employer] ANCA Group Consensusrecommends follow up testing of positive sera with both WV-3 and MPO-ANCA enzyme immunoassays. As many as 5% serumsamples are positive only by EIA. Ref. AM J Clin Ndrsou1912;111:507-513. Serum tissue transglutaminas e IgA antibody assay (units/volume)Ordered By: Arthur Bull on 12-27-2022 tTG IgA Qn (S) <2 U/mL 0-3 [facility] Comment on above: Negative 0 - 3 Weak Positive 4 - 10 Positive >10 Tissue Transglutaminase (tTG) has been identified as the endomysial antigen. Studies have demonstr- ated that endomysial IgA antibodies have over 99% specificity for gluten sensitive enteropathy. Stool Clostridium difficile detectionOrdered By: Arthur Bull on 12-27-2022 C. difficile Ql (Stl) [facility] Stool lactoferrin detection by immunoassayOrdered By: Arthur Bull on 12-27-2022 Lactoferrin IA Ql (Stl) [facility] Thin prep Papanicolaou smear with manual screeningOrdered By: Arthur Friend on 12-27-2022 Thin prep Papanicolaou smear with manual screening 14 U/L 15-37 [facility] Thin prep Papanicolaou smear with manual screening 4 5-15 [facility] Thin prep Papanicolaou smear with manual screening 1.2 0.7-1.7 [facility] Total protein bloodOrdered B y: Arthur Friend on 12-27-2022 Protein [Mass/Vol] 7.3 g/dL 6.0-8.5 [facility] CBC W Auto Differential pane l (Bld)on 11-04-2022 Basophils (Bld) [#/Vol] 0.05 10*3/uL <0.11 k/uL [facility] Basophils/100 WBC (Bld) 0.4 % [facility] Differential cell count method Nom (Bld) Auto [facility] Eosinophils (Bld) [#/Vol] 0.31 10*3/uL <0.46 k/ uL [facility] Eosinophils/100 WBC (Bld) 2.4 % [facility] Erythrocyte distribution width (RBC) [Ratio] 11.9 % 11.5 - 15.0 % [facility] Hematocrit (Bld) [Volume fraction] 44.9 % 36.0 - 46.0 % [facility] Hemoglobin (Bld) [Mass/Vol] 14.9 g/dL 11.5 - 15.5 g/dL [facility] Immature granulocytes (Bld) [#/Vol] 0.05 10*3/uL <0.10 k/uL [facility] Immature granulocytes/100 WBC (Bld) 0.4 % [facility] Lymphocytes (Bld) [#/Vol] 4.33 10*3/uL High 1. 00 - 4.00 k/uL [facility] Lymphocytes/100 WBC (Bld) 32.9 % [facility] MCH (RBC) [Entitic mass] 31.3 pg 26. 0 - 34.0 pg [facility] MCHC (RBC) [Mass/Vol] 33.2 g/dL 30.5 - 36.0 g/dL [facility] MCV (RBC) [Entitic vol] 94.3 fL 80.0 - 100.0 fL [facility] Monocytes (Bld) [#/Vol] 0.73 10*3/uL <0.87 k/uL [facility] Monocytes/100 WBC (Bld) 5.5 % [facility] Neutrophils (Bld) [#/Vol] 7.71 10*3/uL High 1. 45 - 7.50 k/uL [facility] Neutrophils/100 WBC (Bld) 58.4 % [facility] Nucleated RBC (Bld) [#/Vol] <0.01 k/uL [facility] Nucleated RBC/100 WBC (Bld) [Ratio] 0.0 /100 WBC [facility] Platelet mean volume (Bld) [Entitic vol] 9.7 fL 9.0 - 12.7 fL [facility] Platelets (Bld) [#/Vol] 321 10*3/uL 150 - 400 k/uL [facility] RBC (Bld) [#/Vol] 4.76 10*6/uL 3.90 - 5.20 m/uL [facility] WBC (Bld) [#/Vol] 13.18 10*3/uL High 3.70 - 11.00 k/uL [facility] XR ABDOMEN 1V SUPINEon 06-17 [facility] UA DIP, URINE (POC)on 2021 BILIRUBIN UA (POCT) Negative Negative [facility] CLARITY UA (POCT) Clear [facility] COLOR UA (POCT) Yellow [facility] GLUCOSE UA (POCT) Negative Negative mg/dL [facility] HEMOGLOBIN/BLOOD UA (POCT) Moderate Abnormal Negative [facility] KETONE UA (POCT) Negative Negative mg/dL [facility] LEUKOCYTES UA (POCT) Negative Negative [facility] NITRITE UA (POCT) Negative Negative [facility] PH UA (POCT) 5.5 4.5 - 8.0 [facility] Protein Ql (U) Negative Negative mg/[facility] SPECIFIC GRAVITY UA (POCT) 1.020 1.005 - 1.030 [facility] UROBILINOGEN UA (POCT) 0.2 E.U./dL Milagros l E.U./dL [facility] CT ABD/PEL W IVCONon 022 [facility] UA DIP, URINE (POC)on 2021 BILIRUBIN UA (POCT) Negative Negative [facility] CLARITY UA (POCT) Slightly Cloudy Cl [facility] COLOR UA (POCT) Other [facility] GLUCOSE UA (POCT) Negative Negative mg/dL [facility] HEMOGLOBIN/BLOOD UA (POCT) Moderate Abnormal Negative [facility] KETONE UA (POCT) Negative Negative mg/dL [facility] LEUKOCYTES UA (POCT) Trace Abnormal Negative [facility] NITRITE UA (POCT) Negative Negative [facility] PH UA (POCT) 5.5 4.5 - 8.0 [facility] Protein Ql (U) Negative Negative mg/dL [facility] SPECIFIC GRAVITY UA (POCT) 1.020 1.005 - 1.030 [facility] UROBILINOGEN UA (POCT) 0.2 E.U./dL Milagros l E.U./dL [facility] NM GASTRIC EMPTYING SOLIDon 04-03-2022 [facility] CBC W Auto Differential pane l (Bld)on 03-06-2022 Abs Immature Gran 0.03 k/uL <0.10 k/uL [facility] Basophils (Bld) [#/Vol] 0.05 10*3/uL <0.11 k/uL [facility] Basophils/100 WBC (Bld) 0.4 % [facility] Differential cell count method Nom (Bld) Auto [facility] Eosinophils (Bld) [#/Vol] 0.24 10*3/uL <0.46 k/ uL [facility] Eosinophils/100 WBC (Bld) 2.0 % [facility] Erythrocyte distribution width (RBC) [Ratio] 11.9 % 11.5 - 15.0 % [facility] Hematocrit (Bld) [Volume fraction] 41.9 % 36.0 - 46.0 % [facility] Hemoglobin (Bld) [Mass/Vol] 13.9 g/dL 11.5 - 15.5 g/dL [facility] Immature Gran % 0.3 % [facility] Lymphocytes (Bld) [#/Vol] 4.68 10*3/uL High 1. 00 - 4.00 k/uL [facility] Lymphocytes/100 WBC (Bld) 39.1 % [facility] MCH (RBC) [Entitic mass] 30.9 pg 26. 0 - 34.0 pg [facility] MCHC (RBC) [Mass/Vol] 33.2 g/dL 30.5 - 36.0 g/dL [facility] MCV (RBC) [Entitic vol] 93.1 fL 80.0 - 100.0 fL [facility] Monocytes (Bld) [#/Vol] 0.68 10*3/uL <0.87 k/uL [facility] Monocytes/100 WBC (Bld) 5.7 % [facility] Neutrophils (Bld) [#/Vol] 6.29 10*3/uL 1. 45 - 7.50 k/uL [facility] Neutrophils/100 WBC (Bld) 52.5 % [facility] Nucleated RBC (Bld) [#/Vol] 10*3/uL <0.01 k/uL [facility] Nucleated RBC/100 WBC (Bld) [Ratio] 0.0 /100 WBC [facility] Platelet mean volume (Bld) [Entitic vol] 9.7 fL 9.0 - 12.7 fL [facility] Platelets (Bld) [#/Vol] 302 10*3/uL 150 - 400 k/uL [facility] RBC (Bld) [#/Vol] 4.50 10*6/uL 3.90 - 5.20 m/uL [facility] WBC (Bld) [#/Vol] 11.97 10*3/uL High 3.70 - 11.00 k/uL [facility] US BREAST LTD LTon 2 [facility] RADHA SCREENINGon 01-22-2022 [facility] No Panel Informationon 08-25 IMPRESSION: No acute osseous abnormality. No marginal erosions. Other findings, as described. Tipple Oiler: P[facility] Transcribe Date/Time: Aug 25 2020 1:32P Dictated by : DEBRA CARRERO MD This examination was interpreted and the report reviewed and electronically signed by: DEBRA CARRERO MD on Aug 25 2020 1:34PM [facility] DIVISION OF RADIOLOGY Radiology [facility]ative[facility] No Panel InformationOrdered By: Ccf Provider on 08-25-2020 [facility] XR Ankle - right AP and Late [...] medial ankle joint. DIVISION OF RADIOLOGY Provider, [facility] - 08/25/2020 * * *Final Report* [...] No marginal erosions. Other findings, as described. [facility] Transcribe Date/Time: Aug 25 2020 1:32P Dictated by : DEBRA CARRERO MD This examination was interpreted and the report reviewed and electronically signed by: DEBRA CARRERO MD on Aug 25 2020 1:34PM EST [facility] XR Foot - right AP and Later [...] medial ankle joint. DIVISION OF RADIOLOGY [facility] * * *Final Report* [...] No marginal erosions. Other findings, as described. Tipple Oiler: KIRSTEN Transcribe Date/Time: Aug 25 2020 1:32P Dictated by : DEBRA CARRERO MD This examination was interpreted and the report reviewed and electronically signed by: DEBRA CARRERO MD on Aug 25 2020 1:34PM [facility] MRI SHOULDER WO IVCON LTon 0 06-20-2020 MRI SHOULDER WO IVCON LT * * *Final Repo rt* * * DATE OF EXAM: Jun 20 2020 8:02AM [facility] 0239 - MRI SHOULDER WO IVCON [...] NO EVIDENCE OF BONE FRACTURE OR CONTUSION. Tipple Oiler: KIRSTEN Transcribe Date/Time: Jun 20 2020 1:11P Dictated by : RANDY ARAMBULA MD This examination was interpreted and the report reviewed and electronically signed by: RANDY ARAMBULA MD on Jun 20 2020 1:16PM EST [id number] [facility] PROGRESSon 06-20-2020 PROGRESS HNO ID: [id number] Author: Stuart Acevedo (Tech) Service: Radiology Author Type: Core Analyst Type: Progress Notes Filed: 06/20/2020 7:40 AM [...] PERIPHERAL IV DATA: Not applicable SIGNED BY: Nayeli Guo, pattern drafter June 20, 2020 7:39 AM [facility] PROGRESSon 06-02-2020 PROGRESS HNO ID: [id number] Author: Krissy Rosenbaum) YUDI Lara Service: Radiology Author Type: Clinical Core Analyst Type: Progress Notes Filed: 06/02/2020 10:20 AM [...] YUDI Orellana June 02, 2020 10:20 AM [facility] XR CERVICAL 4V AP/LAT/OBLon 06-02-2020 XR CERVICAL [...] are seen. IMPRESSION: Degenerative changes as discussed Tipple Oiler: KISRTEN Transcribe Date/Time: Jun 02 2020 3:08P Dictated by : INGRIS GUTHRIE DO This examination was interpreted and the report reviewed and electronically signed by: INGRIS GUTHRIE DO on Jun 02 2020 3:09PM EST [id number] [facility] XR SHLDR >/=3V AP/KELSEY AP/OTH R LTon [...] dislocation. Recommend repeat shoulder radiographs when feasible. Tipple Oiler: KIRSTEN Transcribe Date/Time: May 26 2020 12:04A Dictated by : BERTO HIGGINS MD This examination was interpreted and the report reviewed and electronically signed by: BERTO HIGGINS MD on May 26 2020 12:07AM EST [facility] PROGRESSon 05-04-2020 PROGRESS HNO ID: [id number] Author: Krissy (Ct) YUDI Lara Service: ? Author Type: Clinical Core Analyst Type: Progress Notes Filed: 05/04/2020 10:04 AM [...] YUDI GARVIN May 04, 2020 10:04 AM [facility] XR KNEE 3V AP/LAT/MERCHANT R Ton 05-04-2020 [...] medial compartment. IMPRESSION: Degenerative changes as discussed Tipple Oiler: KIRSTEN Transcribe Date/Time: May 04 2020 4:13P Dictated by : INGRIS GUTHRIE DO This examination was interpreted and the report reviewed and electronically signed by: INGRIS GUTHRIE DO on May 04 2020 4:14PM EST [id number] [facility] CT ABD/PEL W IVCONon 020 CT ABD/PEL W IVCON * * *Final Report* * * DATE OF EXAM: Mar 09 2020 9:56AM [facility] 0530 - CT ABD/PEL W IVCON [...] abnormality. No change from the prior studies. Tipple Oiler: [facility] Transcribe Date/Time: Mar 09 2020 10:09A Dictated by : DEWAYNE GARRETT MD This examination was interpreted and the report reviewed and electronically signed by: DEWAYNE GARRETT MD on Mar 09 2020 10:20AM EST Normal [facility] Comprehensive Panelon 2019 Albumin [Mass/Vol] 4.5 g/dL Normal 3.9-4.9 [facility] Comment on above: Performed By: #### L LP14 #### [address] [address] ALP [Catalytic activity/Vol] 69 U/L Normal 34-123 [facility] Comment on above: Performed By: #### L LP14 #### [facility] [address] [place], [place] [address] ALT-SGPT Blood 19 U/L Normal 7-38 [facility] Comment on above: Performed By: #### L LP14 #### [facility] [address] [place], [place] [address] Anion gap [Moles/Vol] 13 mmol/L Normal 9-18 [facility] Comment on above: Performed By: #### L LP14 #### [facility] [address] [place] [address] AST-SGOT Blood 15 U/L Normal 13-35 [facility] Comment on above: Performed By: #### L LP14 #### [facility] [address] [place] [address] Bilirubin Ql (U) 0.2 mg/dL Normal 0.2-1.3 [facility] Comment on above: Performed By: #### L LP14 #### [facility] [address] [place] [address] Calcium [Mass/Vol] 9.5 mg/dL Normal 8.5-10.2 [facility] Comment on above: Performed By: #### L LP14 #### [facility] [address] [place] [address] Chloride [Moles/Vol] 102 mmol/L Normal 97-105 [facility] Comment on above: Performed By: #### L LP14 #### [facility] [address] [place] [address] CO2 Blood 23 mmol/L Normal 22-30 [facility] Comment on above: Performed By: #### L LP14 #### [facility] [address] [place] [address] Creatinine [Mass/Vol] 0.54 mg/dL Low 0.58-0.96 [facility] Comment on above: Performed By: #### L LP14 #### [facility] [address] [place] [address] Glucose [Mass/Vol] 134 mg/dL High 74-99 [facility] Comment on above: Result Comment: The [place] Diabetes Association (ADA) provides guidance for cutoff [...] Standards of Medical Care in Diabetes 2016; [place] Diabetes Association. Diabetes Care. 2016;39(Suppl 1). Performed By: #### L LP14 #### [facility] [address] [place] [address] Potassium [Moles/Vol] 4.2 mmol/L Normal 3.7-5.1 [facility] Comment on above: Performed By: #### L LP14 #### [facility] [address] [place] [address] Protein [Mass/Vol] 7.9 g/dL Normal 6.3-8.0 [facility] Comment on above: Performed By: #### L LP14 #### [facility] [address] [place] [address] Sodium [Moles/Vol] 138 mmol/L Normal 136-144 [facility] Comment on above: Performed By: #### L LP14 #### [facility] [address] [place] [address] Urea nitrogen [Mass/Vol] 17 mg/dL Normal 7-21 [facility] Comment on above: Performed By: #### L LP14 #### [place] [address] Hemogram/Diffon 03-09-2020 Abs. Baso 0.03 thou/cmm Normal 0.00-0.08 [facility] Comment on above: Performed By: #### L CBCD #### [place] [address] Abs. [place] 0.66 thou/cmm Normal 0.20-1.00 [facility] Comment on above: Performed By: #### L CBCD #### [place] [address] Abs. Neut (ANC) 8.38 thou/cmm High 3.00-5.67 [facility] Comment on above: Performed By: #### L CBCD #### [place] [address] Basophils/100 WBC (Bld) 0.2 % Normal [facility] Comment on above: Performed By: #### L CBCD #### [facility] [address] [place], [place] [address] Eosinophils (Bld) [#/Vol] 0.18 thou/cmm Normal 0.00-0. 41 [facility] Comment on above: Performed By: #### L CBCD #### [facility] [address] [place], [place] [address] Eosinophils/100 WBC (Bld) 1.4 % Normal [facility] Comment on above: Performed By: #### L CBCD #### [facility] [address] [place] [address] Erythrocyte distribution width (RBC) [Ratio] 11.5 % Normal 11.5-15.9 [facility] Comment on above: Performed By: #### L CBCD #### [place] [address] Hematocrit (Bld) [Volume fraction] 42.8 % Normal 37.0-47.0 [facility] Comment on above: Performed By: #### L CBCD #### [facility] [address] [place] [address] Hemoglobin (Bld) [Mass/Vol] 14.6 g/dL Normal 12.0-16.0 [facility] Comment on above: Performed By: #### L CBCD #### [place] [address] Lymphocytes (Bld) [#/Vol] 3.25 thou/cmm Normal 1.50-3. 65 [facility] Comment on above: Performed By: #### L CBCD #### [facility] [address] [place], [place] [address] Lymphocytes/100 WBC (Bld) 26.0 % Normal [facility] Comment on above: Performed By: #### L CBCD #### [facility] [address] [place] [address] MCH (RBC) [Entitic mass] 31.7 pg High 27.0-31.0 [facility] Comment on above: Performed By: #### L CBCD #### [place] [address] MCHC (RBC) [Mass/Vol] 34.1 % Normal 32.0-36.0 [facility] Comment on above: Performed By: #### L CBCD #### [facility] [address] [place] [address] MCV (RBC) [Entitic vol] 92.8 fL Normal 81.0-99.0 [facility] Comment on above: Performed By: #### L CBCD #### [facility] [address] [place] [address] Monocytes/100 WBC (Bld) 5.3 % Normal [facility] Comment on above: Performed By: #### L CBCD #### [facility] [address] [place] [address] Platelet mean volume (Bld) [Entitic vol] 9.3 fL Normal 7.1-10.5 [facility] Comment on above: Performed By: #### L CBCD #### [place] [address] Platelets (Bld) [#/Vol] 316 thou/cmm Normal 150-400 [facility] Comment on above: Performed By: #### L CBCD #### [place] [address] RBC (Bld) [#/Vol] 4.61 mil/cmm Normal 4.20-5.40 [facility] Comment on above: Performed By: #### L CBCD #### [place] [address] Seg Neutrophil 67.1 % Normal [facility] Comment on above: Performed By: #### L CBCD #### [place] [address] WBC (Bld) [#/Vol] 12.5 thou/cmm High 4.8-10.5 [facility] Comment on above: Performed By: #### L CBCD #### [place] [address] Lipase Bloodon 03-09-2020 Lipase Blood 50 U/L Normal 16-61 [facility] Comment on above: Performed By: #### L LIP #### [facility] [address] [place], [place] [address] MDRD eGFRon 03-09-2020 GFR/1.73 sq M predicted among non-blacks MDRD (S/P/Bld) [Vol rate/Area] mL/min/{1.73_m2} Normal >60mL/min/ 1.73m2 [facility] Comment on above: Result Comment: If t he patient is , multiply the result by 1.210. Performed By: #### L GFR #### [facility] [address] [place] [id number] Protimeon 03-09-2020 INR Coag (PPP) [Relative time] 0.91 {INR} Normal 0.90-1.30 [facility] Comment on above: Result Comment: Anjana min K Antagonist (VKA) Therapeutic Range: INR 2 to 3 (Target INR of 2.5) Note: For patients treated with VKA drugs, such as warfarin, the [place] [employer] 2012 Guideline recommends [...] Chest 2012; 141:7S-47S Uyen RA et al. JACC 2017; 70: 252-289 Performed By: #### L PT #### [facility] [address] [place] [id number] PT Coag (PPP) [Time] 9.2 s Low 9.7-13.0 [facility] Comment on above: Result Comment: . Performed By: #### L PT #### [facility] [address] [place] [id number] Urinalysis Routineon 020 Appearance (U) CLEAR Normal [facility] Comment on above: Performed By: #### L URIN #### [facility] [address] [place] [address] Bilirubin Urine Negative Normal Negative [facility] Comment on above: Performed By: #### L URIN #### [facility] [address] [place] [address] Color (U) YELLOW Normal [facility] Comment on above: Performed By: #### L URIN #### [facility] [address] [place] [address] Ep Cells Urine 0-2 Normal 0-5 [facility] Comment on above: Performed By: #### L URIN #### [facility] [address] [place] [address] Glucose Ql (U) Negative Normal Negative [facility] Comment on above: Performed By: #### L URIN #### [place] [address] Hemoglobin,Urine 1+ Abnormal Negative [facility] Comment on above: Performed By: #### L URIN #### [place] [address] Ketone Urine Negative Normal Negative [facility] Comment on above: Performed By: #### L URIN #### [place] [address] Leukocytes Esterase Negative Normal Negative [facility] Comment on above: Performed By: #### L URIN #### [place] [address] Nitrites Urine Negative Normal Negative [facility] Comment on above: Performed By: #### L URIN #### [facility] [address] [place] [address] pH (U) 6.5 [pH] Normal 5.0-8.0 [facility] Comment on above: Performed By: #### L URIN #### [facility] [address] [place] [address] Protein (U) [Mass/Vol] Negative Normal Negative [facility] Comment on above: Performed By: #### L URIN #### [facility] [address] [place] [address] RBC LM.HPF (Urine sed) [#/Area] 0-3 Normal 0-3 [facility] Comment on above: Performed By: #### L URIN #### [facility] [address] [place] [address] Specific [place], Ur 1.010 Normal 1.005-1 .03 0 [facility] Comment on above: Performed By: #### L URIN #### [facility] [address] [place] [address] Urobilinogen,Ur 0.2 EU/dL Normal 0.2-1.0 [facility] Comment on above: Performed By: #### L URIN #### [facility] [address] [place] [address] WBC LM.HPF (Urine sed) [#/Area] 0-2 Normal 0-5 [facility] Comment on above: Performed By: #### L URIN #### [facility] [address] [place] [address] CR Hand Complete 3+ Views [place] 01-20-2018 CR Hand Complete 3+ Views Left Patient Name: ISAAC RAHMAN Diagnostic Radiology Exam Date/Time 01/20/2018 12:45:25 EDT Exam CR Hand Complete 3+ Views Left Ordering Physician MD AVIS, AMANDA Syed Accession Number [id number] CPT4 Codes 19544 () Reason For Exam pain Report LEFT [...] Transcribed Date and Time: 01/20/2018 1:39 Normal [facility] CR Hand Complete 3+ Views Ana Laura sharp 01-20-2018 CR Hand Complete 3+ Views Right Patient Name: ISAAC RAHMAN Diagnostic Radiology Exam Date/Time 01/20/2018 12:45:25 EDT Exam CR Hand Complete 3+ Views Right Ordering Physician MD AVIS, AMANDA Syed Accession Number [id number] CPT4 Codes 05719 () Reason For Exam Pain Report RIGHT [...] Transcribed Date and Time: 01/20/2018 1:39 Normal [facility] Vital Signs Date Time Vital Sign Value Performing Clinician Franca alcaraz 07-26-2025 08:40-0400 Body height 152.[address] Andreas Buenrostro MD Work Phone: [facility] 07-26-2025 08:40-0400 Body mass index (BMI) [Ratio] 32.2 kg/m2 Dr. Andreas Buenrostro MD Work Phone: [facility] 07-26-2025 08:40-0400 Body temperature 97 [degF] Dr. Andreas Buenrostro MD Work Phone: [facility] 07-26-2025 08:40-0400 Body weight 74.[address] Andreas Buenrostro MD Work Phone: [facility] 07-26-2025 08:40-0400 Diastolic blood pressure 80 mm[Hg] Dr. Andreas Buenrostro MD Work Phone: [facility] 07-26-2025 08:40-0400 Heart rate 57 /min Dr. Andreas Buenrostro MD Work Phone: [facility] 07-26-2025 08:40-0400 Respiratory rate 16 /min Dr. Andreas Buenrostro MD Work Phone: [facility] 07-26-2025 08:40-0400 SaO2% (BldA) [Mass fraction] 96 % Dr. Andreas Buenrostro MD Work Phone: [facility] 07-26-2025 08:40-0400 Systolic blood pressure 130 mm[Hg] Dr. Andreas Buenrostro MD Work Phone: [facility] 06-13-2025 16:37-0400 Body temperature 97.5 [degF] Dr. Andreas Buenrostro MD Work Phone: [facility] 06-13-2025 16:37-0400 Diastolic blood pressure 71 mm[Hg] Dr. Andreas Buenrostro MD Work Phone: [facility] 06-13-2025 16:37-0400 Heart rate 57 /min Dr. Andreas Buenrostro MD Work Phone: [facility] 06-13-2025 16:37-0400 Respiratory rate 19 /min Dr. Andreas Buenrostro MD Work Phone: [facility] 06-13-2025 16:37-0400 SaO2% (BldA) [Mass fraction] 99 % Dr. Andreas Buenrostro MD Work Phone: [facility] 06-13-2025 16:37-0400 Systolic blood pressure 160 mm[Hg] Dr. Andreas Buenrostro MD Work Phone: [facility] 06-13-2025 12:29-0400 Body height 152.[address] Andreas Buenrostro MD Work Phone: [facility] 06-13-2025 12:29-0400 Body mass index (BMI) [Ratio] 32 kg/m2 Dr. Andreas Buenrostro MD Work Phone: [facility] 06-13-2025 12:29-0400 Body weight 74.[address] Andreas Buenrostro MD Work Phone: [facility] 06-13-2025 11:45-0400 Body height 152.[address] Andreas Buenrostro MD Work Phone: [facility] 06-13-2025 11:45-0400 Body mass index (BMI) [Ratio] 32.2 kg/m2 Dr. Andreas Buenrostro MD Work Phone: [facility] 06-13-2025 11:45-0400 Body temperature 96.3 [degF] Dr. Andreas Buenrostro MD Work Phone: [facility] 06-13-2025 11:45-0400 Body weight 74.[address] Andreas Buenrostro MD Work Phone: [facility] 06-13-2025 11:45-0400 Diastolic blood pressure 74 mm[Hg] Dr. Andreas Buenrostro MD Work Phone: [facility] 06-13-2025 11:45-0400 Heart rate 62 /min Dr. Andreas Buenrostro MD Work Phone: [facility] 06-13-2025 11:45-0400 Respiratory rate 16 /min Dr. Andreas Buenrostro MD Work Phone: [facility] 06-13-2025 11:45-0400 SaO2% (BldA) [Mass fraction] 97 % Dr. Andreas Buenrostro MD Work Phone: [facility] 06-13-2025 11:45-0400 Systolic blood pressure 142 mm[Hg] Dr. Andreas Buenrostro MD Work Phone: [facility] 04-11-2025 12:54-0400 Body height 152.[address] Andreas Buenrostro MD Work Phone: [facility] 04-11-2025 12:54-0400 Body mass index (BMI) [Ratio] 32.8 kg/m2 Dr. Andreas Buenrostro MD Work Phone: [facility] 04-11-2025 12:54-0400 Body temperature 98 [degF] Dr. Andreas Buenrostro MD Work Phone: [facility] 04-11-2025 12:54-0400 Body weight 76.[address] Andreas Buenrostro MD Work Phone: [facility] 04-11-2025 12:54-0400 Diastolic blood pressure 98 mm[Hg] Dr. Andreas Buenrostro MD Work Phone: [facility] 04-11-2025 12:54-0400 Heart rate 76 /min Dr. Andreas Buenrostro MD Work Phone: [facility] 04-11-2025 12:54-0400 Respiratory rate 18 /min Dr. Andreas Buenrostro MD Work Phone: [facility] 04-11-2025 12:54-0400 SaO2% (BldA) [Mass fraction] 94 % Dr. Andreas Buenrostro MD Work Phone: [facility] 04-11-2025 12:54-0400 Systolic blood pressure 162 mm[Hg] Dr. Andreas Buenrostro MD Work Phone: [facility] 01-25-2025 11:27-0400 Body mass index (BMI) [Ratio] 33.7 kg/m2 Dr. Andreas Buenrostro MD Work Phone: [facility] 01-25-2025 11:27-0400 Body temperature 96.6 [degF] Dr. Andreas Buenrostro MD Work Phone: [facility] 01-25-2025 11:27-0400 Body weight 78.[address] Andreas Buenrostro MD Work Phone: [facility] 01-25-2025 11:27-0400 Diastolic blood pressure 80 mm[Hg] Dr. Andreas Buenrostro MD Work Phone: [facility] 01-25-2025 11:27-0400 Heart rate 63 /min Dr. Andreas Buenrostro MD Work Phone: [facility] 01-25-2025 11:27-0400 Respiratory rate 20 /min Dr. Andreas Buenrostro MD Work Phone: [facility] 01-25-2025 11:27-0400 SaO2% (BldA) [Mass fraction] 97 % Dr. Andreas Buenrostro MD Work Phone: [facility] 01-25-2025 11:27-0400 Systolic blood pressure 158 mm[Hg] Dr. Andreas Buenrostro MD Work Phone: [facility] 02-05-2024 07:39-0400 Body height 152.[address] Andreas Buenrostro Work Phone: [facility] 02-05-2024 07:39-0400 Body mass index (BMI) [Ratio] 33.2 kg/m2 Dr. Andreas Buenrostro Work Phone: [facility] 02-05-2024 07:39-0400 Body temperature 97.6 [degF] Dr. Andreas Buenrostro Work Phone: [facility] 02-05-2024 07:39-0400 Body weight 77.[address] Andreas Buenrostro Work Phone: [facility] 02-05-2024 07:39-0400 Diastolic blood pressure 70 mm[Hg] Dr. Andreas Buenrostro Work Phone: [facility] 02-05-2024 07:39-0400 Heart rate 60 /min Dr. Andreas Buenrostro Work Phone: [facility] 02-05-2024 07:39-0400 Respiratory rate 16 /min Dr. Andreas Buenrostro Work Phone: [facility] 02-05-2024 07:39-0400 SaO2% (BldA) [Mass fraction] 97 % Dr. Andreas Buenrostro Work Phone: [facility] 02-05-2024 07:39-0400 Systolic blood pressure 130 mm[Hg] Dr. Andreas Buenrostro Work Phone: [facility] 11-03-2023 08:07-0500 Body height 152.[address] Andreas Buenrostro Work Phone: [facility] 11-03-2023 08:07-0500 Body mass index (BMI) [Ratio] 32.8 kg/m2 Dr. Andreas Buenrostro Work Phone: [facility] 11-03-2023 08:07-0500 Body temperature 97.3 [degF] Dr. Andreas Buenrostro Work Phone: [facility] 11-03-2023 08:07-0500 Body weight 76.[address] Andreas Buenrostro Work Phone: [facility] 11-03-2023 08:07-0500 Diastolic blood pressure 82 mm[Hg] Dr. Andreas Buenrostro Work Phone: [facility] 11-03-2023 08:07-0500 Heart rate 66 /min Dr. Andreas Buenrostro Work Phone: [facility] 11-03-2023 08:07-0500 Respiratory rate 16 /min Dr. Andreas Buenrostro Work Phone: [facility] 11-03-2023 08:07-0500 SaO2% (BldA) [Mass fraction] 99 % Dr. Andreas Buenrostro Work Phone: [facility] 11-03-2023 08:07-0500 Systolic blood pressure 138 mm[Hg] Dr. Andreas Buenrostro Work Phone: [facility] 08-04-2023 13:54-0400 Body height 152.[address] Kashmir Leong Work Phone: [facility] 08-04-2023 13:54-0400 Body mass index (BMI) [Ratio] 31.3 kg/m2 Dr. Kashmir Leong Work Phone: [facility] 08-04-2023 13:54-0400 Body temperature 95.7 [degF] Dr. Kashmir Leong Work Phone: 9(125)439-102988 [place] [address] 08-04-2023 13:54-0400 Body weight 72.[address] Kashmir Leong Work Phone: [facility] 08-04-2023 13:54-0400 Diastolic blood pressure 88 mm[Hg] Dr. Kashmir Leong Work Phone: [facility] 08-04-2023 13:54-0400 Heart rate 62 /min Dr. Kashmir Leong Work Phone: [facility] 08-04-2023 13:54-0400 Respiratory rate 18 /min Dr. Kashmir Leong Work Phone: [facility] 08-04-2023 13:54-0400 SaO2% (BldA) [Mass fraction] 96 % Dr. Kashmir Leong Work Phone: [facility] 08-04-2023 13:54-0400 Systolic blood pressure 146 mm[Hg] Dr. Kashmir Leong Work Phone: 1(339)611-146088 [place] [address] 07-30-2023 13:42-0400 Heart rate 90 /min Dr. Kashmir Leong Work Phone: 0(870)792-991619 [place] [address] 07-30-2023 13:42-0400 SaO2% (BldA) [Mass fraction] 98 % Dr. Kashmir Leong Work Phone: 4(952)255-431919 [place] [address] 07-30-2023 10:35-0400 Body mass index (BMI) [Ratio] 30.8 kg/m2 Dr. Kashmir Leong Work Phone: 9(046)160-037019 [place] [address] 07-30-2023 10:35-0400 Body temperature 97.2 [degF] Dr. Kashmir Leong Work Phone: 6(739)833-111919 [place] [address] 07-30-2023 10:35-0400 Body weight 71.[address] Kashmir Leong Work Phone: 8(526)063-620619 [place] [address] 07-30-2023 10:35-0400 Diastolic blood pressure 118 mm[Hg] Dr. Kashmir Leong Work Phone: 6(439)224-220119 [place] [address] 07-30-2023 10:35-0400 Respiratory rate 14 /min Dr. Kashmir Leong Work Phone: 2(243)251-904319 [place] [address] 07-30-2023 10:35-0400 Systolic blood pressure 171 mm[Hg] Dr. Kashmir Leong Work Phone: 3(625)915-629919 [place] [address] 07-18-2023 08:17-0400 Body mass index (BMI) [Ratio] 31.6 kg/m2 Dr. Kashmir Leong Work Phone: 3(762)281-232419 [place] [address] 07-18-2023 08:17-0400 Body temperature 98.6 [degF] Dr. Kashmir Leong Work Phone: 4(046)715-190119 [place] [address] 07-18-2023 08:17-0400 Body weight 73.[address] Kashmir Leong Work Phone: 4(787)062-557819 [place] [address] 07-18-2023 08:17-0400 Diastolic blood pressure 86 mm[Hg] Dr. Kashmir Leong Work Phone: 5(328)453-240819 [place] [address] 07-18-2023 08:17-0400 Heart rate 70 /min Dr. Kashmir Leong Work Phone: 5(590)876-875119 [place] [address] 07-18-2023 08:17-0400 SaO2% (BldA) [Mass fraction] 98 % Dr. Kashmir Leong Work Phone: 4(410)964-269019 [place] [address] 07-18-2023 08:17-0400 Systolic blood pressure 150 mm[Hg] Dr. Kashmir Leong Work Phone: 5(230)773-820119 [place] [address] 05-01-2023 11:20-0400 Body mass index (BMI) [Ratio] 31.5 kg/m2 Dr. Kashmir Leong Work Phone: 5(474)260-966519 [place] [address] 05-01-2023 11:20-0400 Body temperature 97.3 [degF] Dr. Kashmir Leong Work Phone: 6(588)841-250319 [place] [address] 05-01-2023 11:20-0400 Body weight 73.[address] Kashmir Leong Work Phone: 8(789)723-947319 [place] [address] 05-01-2023 11:20-0400 Diastolic blood pressure 78 mm[Hg] Dr. Kashmir Leong Work Phone: 5(804)301-953419 [place] [address] 05-01-2023 11:20-0400 Heart rate 72 /min Dr. Kashmir Leong Work Phone: 9(040)816-068519 [place] [address] 05-01-2023 11:20-0400 Respiratory rate 16 /min Dr. Kashmir Leong Work Phone: 6(830)707-042319 [place] [address] 05-01-2023 11:20-0400 SaO2% (BldA) [Mass fraction] 97 % Dr. Kashmir Leong Work Phone: 4(356)259-258519 [place] [address] 05-01-2023 11:20-0400 Systolic blood pressure 118 mm[Hg] Dr. Kashmir Leong Work Phone: 6(985)174-375119 [place] [address] 04-15-2023 12:01-0400 Diastolic blood pressure 81 mm[Hg] Dr. Kashmir Leong Work Phone: 3(830)753-276219 [place] [address] 04-15-2023 12:01-0400 Heart rate 78 /min Dr. Kashmir Leong Work Phone: 2(064)789-755519 [place] [address] 04-15-2023 12:01-0400 Respiratory rate 14 /min Dr. Kashmir Leong Work Phone: 7(910)778-203619 [place] [address] 04-15-2023 12:01-0400 SaO2% (BldA) [Mass fraction] 96 % Dr. Kashmir Leong Work Phone: 0(678)409-486519 [place] [address] 04-15-2023 12:01-0400 Systolic blood pressure 143 mm[Hg] Dr. Kashmir Leong Work Phone: 1(849)928-020119 [place] [address] 04-15-2023 09:51-0400 Body mass index (BMI) [Ratio] 30.4 kg/m2 Dr. Kashmir Leong Work Phone: 1(717)366-214519 [place] [address] 04-15-2023 09:51-0400 Body temperature 96.7 [degF] Dr. Kashmir Leong Work Phone: 6(134)471-440819 [place] [address] 04-15-2023 09:51-0400 Body weight 70.[address] Kashmir Leong Work Phone: 4(421)427-822319 [place] [address] 04-02-2023 12:00-0400 Body temperature 98 [degF] Dr. Kashmir Leong Work Phone: 3(389)192-955019 [place] [address] 04-02-2023 12:00-0400 Diastolic blood pressure 80 mm[Hg] Dr. Kashmir Leong Work Phone: 6(822)446-714919 [place] [address] 04-02-2023 12:00-0400 Heart rate 66 /min Dr. Kashmir Leong Work Phone: 0(885)988-664919 [place] [address] 04-02-2023 12:00-0400 Respiratory rate 16 /min Dr. Kashmir Leong Work Phone: 5(849)981-026419 [place] [address] 04-02-2023 12:00-0400 SaO2% (BldA) [Mass fraction] 97 % Dr. Kashmir Leong Work Phone: 0(397)211-467419 [place] [address] 04-02-2023 12:00-0400 Systolic blood pressure 123 mm[Hg] Dr. Kashmir Leong Work Phone: 1(125)992-313419 [place] [address] 04-02-2023 10:24-0400 Body height 152.[address] Kashmir Leong Work Phone: 4(670)228-049719 [place] [address] 04-02-2023 10:24-0400 Body mass index (BMI) [Ratio] 29.7 kg/m2 Dr. Kashmir Leong Work Phone: 9(698)559-808019 [place] [address] 04-02-2023 10:24-0400 Body weight [address] Kashmir Leong Work Phone: 4(761)056-117919 [place] [address] 04-01-2023 14:57-0400 Body mass index (BMI) [Ratio] 30.4 kg/m2 Dr. Kashmir Leong Work Phone: 5(907)048-229919 [place] [address] 04-01-2023 14:57-0400 Body weight 70.[address] Kashmir Leong Work Phone: 8(555)884-364019 [place] [address] 04-01-2023 14:57-0400 Diastolic blood pressure 81 mm[Hg] Dr. Kashmir Leong Work Phone: 0(129)503-530319 [place] [address] 04-01-2023 14:57-0400 Heart rate 62 /min Dr. Kashmir Leong Work Phone: 3(914)854-590519 [place] [address] 04-01-2023 14:57-0400 Respiratory rate 18 /min Dr. Kashmir Leong Work Phone: 1(651)592-147419 [place] [address] 04-01-2023 14:57-0400 Systolic blood pressure 133 mm[Hg] Dr. Kashmir Leong Work Phone: 2(502)141-616619 [place] [address] 03-31-2023 12:23-0400 Diastolic blood pressure 84 mm[Hg] Dr. Kashmir Leong Work Phone: 8(592)372-325288 [place] [address] 03-31-2023 12:23-0400 Systolic blood pressure 144 mm[Hg] Dr. Kashmir Leong Work Phone: 1(050)987-690019 [place] [address] 03-31-2023 10:01-0400 Body mass index (BMI) [Ratio] 30.4 kg/m2 Dr. Kashmir Leong Work Phone: 8(729)700-243119 [place] [address] 03-31-2023 10:01-0400 Body temperature 97.6 [degF] Dr. Kashmir Leong Work Phone: 6(483)220-031219 [place] [address] 03-31-2023 10:01-0400 Body weight 70.[address] Kashmir Leong Work Phone: 7(475)598-166419 [place] [address] 03-31-2023 10:01-0400 Heart rate 72 /min Dr. Kashmir Leong Work Phone: 6(992)895-461019 [place] [address] 03-31-2023 10:01-0400 Respiratory rate 14 /min Dr. Kashmir Leong Work Phone: 9(223)611-679519 [place] [address] 03-31-2023 10:01-0400 SaO2% (BldA) [Mass fraction] 98 % Dr. Kashmir Leong Work Phone: 7(923)353-486819 [place] [address] 03-17-2023 13:46-0400 Diastolic blood pressure 93 mm[Hg] Dr. Kashmir Leong Work Phone: 0(477)028-837119 [place] [address] 03-17-2023 13:46-0400 Heart rate 80 /min Dr. Kashmir Leong Work Phone: 5(558)500-547319 [place] [address] 03-17-2023 13:46-0400 Respiratory rate 18 /min Dr. Kashmir Leong Work Phone: 2(092)720-004819 [place] [address] 03-17-2023 13:46-0400 SaO2% (BldA) [Mass fraction] 98 % Dr. Kashmir Leong Work Phone: 9(221)335-379819 [place] [address] 03-17-2023 13:46-0400 Systolic blood pressure 140 mm[Hg] Dr. Kashmir Leong Work Phone: 5(812)404-676188 [place] [address] 03-17-2023 08:44-0400 Body mass index (BMI) [Ratio] 31.6 kg/m2 Dr. Kashmir Leong Work Phone: 3(335)043-191019 [place] [address] 03-17-2023 08:44-0400 Body temperature 97.8 [degF] Dr. Kashmir Leong Work Phone: 7(821)788-564519 [place] [address] 03-17-2023 08:44-0400 Body weight 73.[address] Kashmir Leong Work Phone: 6(361)150-792619 [place] [address] 02-17-2023 10:49-0400 Body height 152.[address] Kashmir Leong Work Phone: 6(061)330-313819 [place] [address] 02-17-2023 10:49-0400 Body mass index (BMI) [Ratio] 31.6 kg/m2 Dr. Kashmir Leong Work Phone: 7(225)325-14[address] [place] [address] 02-17-2023 10:49-0400 Body temperature 98.2 [degF] Dr. Kashmir Leong Work Phone: 5(739)809-281919 [place] [address] 02-17-2023 10:49-0400 Body weight 73.[address] Kashmir Leong Work Phone: 7(513)117-863619 [place] [address] 02-17-2023 10:49-0400 Diastolic blood pressure 78 mm[Hg] Dr. Kashmir Leong Work Phone: 1(749)028-996288 [place] [address] 02-17-2023 10:49-0400 Heart rate 67 /min Dr. Kashmir Leong Work Phone: 5(819)744-427788 [place] [address] 02-17-2023 10:49-0400 Respiratory rate 16 /min Dr. Kashmir Leong Work Phone: 3(626)134-878288 [place] [address] 02-17-2023 10:49-0400 SaO2% (BldA) [Mass fraction] 97 % Dr. Kashmir Leong Work Phone: 8(246)746-134288 [place] [address] 02-17-2023 10:49-0400 Systolic blood pressure 122 mm[Hg] Dr. Kashmir Leong Work Phone: 6(284)958-622388 [place] [address] 02-11-2023 07:31-0400 Diastolic blood pressure 79 mm[Hg] Dr. Kashmir Leong Work Phone: 3(322)467-952088 [place] [address] 02-11-2023 07:31-0400 Heart rate 82 /min Dr. Kashmir Leong Work Phone: 4(593)679-911388 [place] [address] 02-11-2023 07:31-0400 Respiratory rate 16 /min Dr. Kashmir Leong Work Phone: 4(196)706-852988 [place] [address] 02-11-2023 07:31-0400 SaO2% (BldA) [Mass fraction] 97 % Dr. Kashmir Leong Work Phone: 7(496)439-175788 [place] [address] 02-11-2023 07:31-0400 Systolic blood pressure 146 mm[Hg] Dr. Kashmir Leong Work Phone: 2(984)910-053888 [place] [address] 02-11-2023 05:41-0400 Body temperature 97.6 [degF] Dr. Kashmir Leong Work Phone: 9(995)025-336988 [place] [address] 02-11-2023 05:38-0400 Body mass index (BMI) [Ratio] 31.4 kg/m2 Dr. Kashmir Leong Work Phone: 4(004)586-120788 [place] [address] 02-11-2023 05:38-0400 Body weight 72.[address] Kashmir Leong Work Phone: 8(594)602-035288 [place] [address] 02-03-2023 21:01-0400 Diastolic blood pressure 70 mm[Hg] Dr. Kashmir Leong Work Phone: [facility] 02-03-2023 21:01-0400 SaO2% (BldA) [Mass fraction] 97 % Dr. Kashmir Leong Work Phone: 0(842)668-947588 [place] [address] 02-03-2023 21:01-0400 Systolic blood pressure 169 mm[Hg] Dr. Kashmir Leong Work Phone: [facility] 02-03-2023 19:05-0400 Body mass index (BMI) [Ratio] 32.1 kg/m2 Dr. Kashmir Leong Work Phone: 7(489)235-179888 [place] [address] 02-03-2023 19:05-0400 Body weight 74.[address] Kashmir Leong Work Phone: 2(616)776-086219 [place] [address] 02-03-2023 19:05-0400 Heart rate 70 /min Dr. Kashmir Leong Work Phone: 0(391)613-917119 [place] [address] 02-03-2023 19:05-0400 Respiratory rate 12 /min Dr. Kashmir Leong Work Phone: 3(386)716-831019 [place] [address] 02-03-2023 17:46-0400 Body height 152.[address] Kashmir Leong Work Phone: 7(357)053-993119 [place] [address] 02-03-2023 17:46-0400 Body temperature 97.2 [degF] Dr. Kashmir Leong Work Phone: 1(694)507-069619 [place] [address] 01-23-2023 12:55-0400 Body height 152.[address] Kashmir Leong Work Phone: 5(777)037-537419 [place] [address] 01-23-2023 12:55-0400 Body mass index (BMI) [Ratio] 32 kg/m2 Dr. Kashmir Leong Work Phone: 8(905)525-607163 [address] 01-23-2023 12:55-0400 Body temperature 94.6 [degF] Dr. Kashmir Leong Work Phone: 7(938)834-289763 [address] 01-23-2023 12:55-0400 Body weight 74.[address] Kashmir Leong Work Phone: 8(751)463-030319 [place] [address] 01-23-2023 12:55-0400 Diastolic blood pressure 78 mm[Hg] Dr. Kashmir Leong Work Phone: 4(372)791-492219 [place] [address] 01-23-2023 12:55-0400 Heart rate 56 /min Dr. Kashmir Leong Work Phone: 4(316)116-181288 [place] [address] 01-23-2023 12:55-0400 SaO2% (BldA) [Mass fraction] 97 % Dr. Kashmir Leong Work Phone: 6(775)508-301988 [place] [address] 01-23-2023 12:55-0400 Systolic blood pressure 118 mm[Hg] Dr. Kashmir Leong Work Phone: 3(491)818-396319 [place] [address] 01-21-2023 16:27-0400 Diastolic blood pressure 90 mm[Hg] Dr. Kashmir Leong Work Phone: 6(313)800-380919 [place] [address] 01-21-2023 16:27-0400 Systolic blood pressure 158 mm[Hg] Dr. Kashmir Leong Work Phone: 9(629)707-756619 [place] [address] 01-21-2023 15:01-0400 Body mass index (BMI) [Ratio] 32.4 kg/m2 Dr. Kashmir Leong Work Phone: 9(868)952-550219 [place] [address] 01-21-2023 15:01-0400 Body temperature 96.5 [degF] Dr. Kashmir Leong Work Phone: 6(651)584-921319 [place] [address] 01-21-2023 15:01-0400 Body weight 75.[address] Kashmir Leong Work Phone: 0(811)689-718219 [place] [address] 01-21-2023 15:01-0400 Heart rate 54 /min Dr. Kashmir Leong Work Phone: 9(882)535-552419 [place] [address] 01-21-2023 15:01-0400 Respiratory rate 16 /min Dr. Kashmir Leong Work Phone: 7(911)618-690519 [place] [address] 01-21-2023 15:01-0400 SaO2% (BldA) [Mass fraction] 97 % Dr. Kashmir Leong Work Phone: 3(350)674-760719 [place] [address] 01-20-2023 23:12-0400 Diastolic blood pressure 70 mm[Hg] Dr. Kashmir Leong Work Phone: 3(518)150-430519 [place] [address] 01-20-2023 23:12-0400 Heart rate 56 /min Dr. Kashmir Leong Work Phone: 3(634)629-997888 [place] [address] 01-20-2023 23:12-0400 Respiratory rate 20 /min Dr. Kashmir Leong Work Phone: 8(458)020-366788 [place] [address] 01-20-2023 23:12-0400 SaO2% (BldA) [Mass fraction] 99 % Dr. Kashmir Leong Work Phone: 5(628)566-161888 [place] [address] 01-20-2023 23:12-0400 Systolic blood pressure 166 mm[Hg] Dr. Kashmir Leong Work Phone: 8(227)507-047219 [place] [address] 01-20-2023 19:02-0400 Body temperature 97.6 [degF] Dr. Kashmir Leong Work Phone: 5(858)776-348819 [place] [address] 01-15-2023 00:15-0400 Diastolic blood pressure 87 mm[Hg] Dr. Kashmir Leong Work Phone: 3(186)607-874219 [place] [address] 01-15-2023 00:15-0400 SaO2% (BldA) [Mass fraction] 97 % Dr. Kashmir Leong Work Phone: 6(900)308-241019 [place] [address] 01-15-2023 00:15-0400 Systolic blood pressure 101 mm[Hg] Dr. Kashmir Leong Work Phone: 0(478)726-734819 [place] [address] 01-14-2023 21:30-0400 Body height 152.[address] Kashmir Leong Work Phone: 3(519)613-886319 [place] [address] 01-14-2023 21:30-0400 Body mass index (BMI) [Ratio] 32.1 kg/m2 Dr. Kashmir Leong Work Phone: 5(274)853-289388 [place] [address] 01-14-2023 21:30-0400 Body temperature 97.1 [degF] Dr. Kashmir Leong Work Phone: 3(530)293-806188 [place] [address] 01-14-2023 21:30-0400 Body weight 74.[address] Kashmir Leong Work Phone: 9(171)054-085519 [place] [address] 01-14-2023 21:30-0400 Heart rate 66 /min Dr. Kashmir Leong Work Phone: 7(293)806-312088 [place] [address] 01-14-2023 21:30-0400 Respiratory rate 20 /min Dr. Kashmir Leong Work Phone: 3(521)698-903619 [place] [address] 01-10-2023 22:45-0400 Diastolic blood pressure 72 mm[Hg] Dr. Kashmir Leong Work Phone: 5(917)130-393819 [place] [address] 01-10-2023 22:45-0400 Heart rate 64 /min Dr. Kashmir Leong Work Phone: 2(963)290-357119 [place] [address] 01-10-2023 22:45-0400 Respiratory rate 18 /min Dr. Kashmir Leong Work Phone: 5(261)062-730719 [place] [address] 01-10-2023 22:45-0400 SaO2% (BldA) [Mass fraction] 97 % Dr. Kashmir Leong Work Phone: 1(143)207-454819 [place] [address] 01-10-2023 22:45-0400 Systolic blood pressure 163 mm[Hg] Dr. Kashmir Leong Work Phone: 3(712)313-859919 [place] [address] 01-10-2023 17:42-0400 Body height 152.[address] Kashmir Leong Work Phone: 1(785)627-476719 [place] [address] 01-10-2023 17:42-0400 Body mass index (BMI) [Ratio] 32.4 kg/m2 Dr. Kashmir Leong Work Phone: 2(968)929-084788 [place] [address] 01-10-2023 17:42-0400 Body temperature 97 [degF] Dr. Kashmir Leong Work Phone: 5(141)077-725088 [place] [address] 01-10-2023 17:42-0400 Body weight 75.[address] Kashmir Leong Work Phone: 4(110)535-009819 [place] [address] 01-04-2023 11:15-0500 Body temperature 98.5 [degF] Dr. Kashmir Leong Work Phone: 2(440)709-417319 [place] [address] 01-04-2023 11:15-0500 Diastolic blood pressure 68 mm[Hg] Dr. Kashmir Leong Work Phone: 0(052)757-978919 [place] [address] 01-04-2023 11:15-0500 Heart rate 70 /min Dr. Kashmir Leong Work Phone: 4(430)857-570819 [place] [address] 01-04-2023 11:15-0500 Respiratory rate 18 /min Dr. Kashmir Leong Work Phone: 9(206)343-556119 [place] [address] 01-04-2023 11:15-0500 SaO2% (BldA) [Mass fraction] 97 % Dr. Kashmir Leong Work Phone: 5(848)055-945819 [place] [address] 01-04-2023 11:15-0500 Systolic blood pressure 151 mm[Hg] Dr. Kashmir Leong Work Phone: 4(669)193-106619 [place] [address] 01-01-2023 11:47-0500 Body weight 78.[address] Kashmir Leong Work Phone: 4(842)183-525419 [place] [address] 12-30-2022 08:50-0500 Body mass index (BMI) [Ratio] 33.8 kg/m2 Dr. Kashmir Leong Work Phone: 6(975)202-275319 [place] [address] 12-28-2022 10:18-0500 Body temperature 97.8 [degF] Dr. Kashmir Leong Work Phone: 4(584)636-886019 [place] [address] 12-28-2022 10:18-0500 Diastolic blood pressure 78 mm[Hg] Dr. Kashmir Leong Work Phone: 2(665)583-766719 [place] [address] 12-28-2022 10:18-0500 Heart rate 78 /min Dr. Kashmir Leong Work Phone: 2(073)119-845719 [place] [address] 12-28-2022 10:18-0500 Respiratory rate 16 /min Dr. Kashmir Leong Work Phone: 7(487)887-020519 [place] [address] 12-28-2022 10:18-0500 SaO2% (BldA) [Mass fraction] 99 % Dr. Kashmir Leong Work Phone: 5(514)868-352919 [place] [address] 12-28-2022 10:18-0500 Systolic blood pressure 145 mm[Hg] Dr. Kashmir Leong Work Phone: [facility] 12-28-2022 08:04-0500 Body height 152.[address] Kashmir Leong Work Phone: [facility] 12-28-2022 08:04-0500 Body mass index (BMI) [Ratio] 34.5 kg/m2 Dr. Kashmir Leong Work Phone: [facility] 12-28-2022 08:04-0500 Body weight 80.[address] Kashmir Leong Work Phone: [facility] 12-06-2022 08:05-0500 Diastolic blood pressure 75 mm[Hg] Thao Podlogar COOKY MACHINE OPERATOR.MAINTENANCE PLUMBER Work Phone: [facility] 12-06-2022 08:05-0500 Heart rate 60 /min Thao Podlogar COOKY MACHINE OPERATOR.MAINTENANCE PLUMBER Work Phone: [facility] 12-06-2022 08:05-0500 Systolic blood pressure 113 mm[Hg] Thao Podlogar COOKY MACHINE OPERATOR.MAINTENANCE PLUMBER Work Phone: [facility] 12-06-2022 07:41-0500 Body weight 81.74 kg Thao Podlogar COOKY MACHINE OPERATOR.MAINTENANCE PLUMBER Work Phone: [facility] 12-06-2022 07:41-0500 Respiratory rate 16 /min Thao Podlogar COOKY MACHINE OPERATOR.MAINTENANCE PLUMBER Work Phone: [facility] 12-06-2022 07:41-0500 SaO2% (BldA) [Mass fraction] 95 % Thao Podlogar COOKY MACHINE OPERATOR.MAINTENANCE PLUMBER Work Phone: [facility] 11-04-2022 09:28-0500 Diastolic blood pressure 86 mm[Hg] Thao Podlogar COOKY MACHINE OPERATOR.MAINTENANCE PLUMBER Work Phone: [facility] 11-04-2022 09:28-0500 Heart rate 64 /min Thao Podlogar COOKY MACHINE OPERATOR.MAINTENANCE PLUMBER Work Phone: [facility] 11-04-2022 09:28-0500 Systolic blood pressure 174 mm[Hg] Thao Podlogar COOKY MACHINE OPERATOR.MAINTENANCE PLUMBER Work Phone: [facility] 11-04-2022 08:48-0500 Body weight 83.01 kg Thao Podlogar COOKY MACHINE OPERATOR.MAINTENANCE PLUMBER Work Phone: [facility] 11-04-2022 08:48-0500 Respiratory rate 16 /min Thao Podlogar COOKY MACHINE OPERATOR.MAINTENANCE PLUMBER Work Phone: [facility] 11-04-2022 08:48-0500 SaO2% (BldA) [Mass fraction] 96 % Thao Podlogar COOKY MACHINE OPERATOR.MAINTENANCE PLUMBER Work Phone: [facility] 06-17-2022 10:36-0400 Body weight 79.56 kg Maria Del Carmen Leong MD Work Phone: [facility] 06-17-2022 10:36-0400 Diastolic blood pressure 84 mm[Hg] Maria Del Carmen Leong MD Work Phone: [facility] 06-17-2022 10:36-0400 Heart rate 53 /min Maria Del Carmen Leong MD Work Phone: [facility] 06-17-2022 10:36-0400 Respiratory rate 16 /min Maria Del Carmen Leong MD Work Phone: [facility] 06-17-2022 10:36-0400 SaO2% (BldA) [Mass fraction] 97 % Maria Del Carmen Leong MD Work Phone: [facility] 06-17-2022 10:36-0400 Systolic blood pressure 130 mm[Hg] Maria Del Carmen Leong MD Work Phone: [facility] 06-15-2022 11:48-0400 Body weight 79.47 kg Maria Del Carmen Leong MD Work Phone: [facility] 06-15-2022 11:48-0400 Diastolic blood pressure 84 mm[Hg] Maria Del Carmen Leong MD Work Phone: [facility] 06-15-2022 11:48-0400 Heart rate 57 /min Maria Del Carmen Leong MD Work Phone: [facility] 06-15-2022 11:48-0400 Respiratory rate 16 /min Maria Del Carmen Leong MD Work Phone: [facility] 06-15-2022 11:48-0400 SaO2% (BldA) [Mass fraction] 96 % Maria Del Carmen Leong MD Work Phone: [facility] 06-15-2022 11:48-0400 Systolic blood pressure 150 mm[Hg] Maria Del Carmen Leong MD Work Phone: [facility] 05-09-2022 10:29-0400 Diastolic blood pressure 76 mm[Hg] Lulú Bean MD Work Phone: [facility] 05-09-2022 10:29-0400 Heart rate 57 /min Lulú Bean MD Work Phone: [facility] 05-09-2022 10:29-0400 Respiratory rate 16 /min Lulú Bean MD Work Phone: [facility] 05-09-2022 10:29-0400 SaO2% (BldA) [Mass fraction] 100 % Lulú Bean MD Work Phone: [facility] 05-09-2022 10:29-0400 Systolic blood pressure 120 mm[Hg] Lulú Bean MD Work Phone: [facility] 05-09-2022 10:10-0400 Body temperature 96.8 [degF] Lulú Bean MD Work Phone: [facility] 05-09-2022 08:29-0400 Body height 152.4 cm Lulú Bean MD Work Phone: [facility] 05-09-2022 08:29-0400 Body weight 77.11 kg Lulú Bean MD Work Phone: [facility] 04-22-2022 14:28-0400 Body weight 79.38 kg Liz [place] COOKY MACHINE OPERATOR.MAINTENANCE PLUMBER Work Phone: [facility] 04-22-2022 14:28-0400 Diastolic blood pressure 64 mm[Hg] Liz [place] COOKY MACHINE OPERATOR.MAINTENANCE PLUMBER Work Phone: [facility] 04-22-2022 14:28-0400 Heart rate 72 /min Liz [place] COOKY MACHINE OPERATOR.MAINTENANCE PLUMBER Work Phone: [facility] 04-22-2022 14:28-0400 Respiratory rate 16 /min Liz [place] COOKY MACHINE OPERATOR.MAINTENANCE PLUMBER Work Phone: [facility] 04-22-2022 14:28-0400 Systolic blood pressure 138 mm[Hg] Liz [place] COOKY MACHINE OPERATOR.MAINTENANCE PLUMBER Work Phone: [facility] 03-11-2022 09:53-0400 Body height 152.4 cm Jovana Kalka PA-C Work Phone: [facility] 03-11-2022 09:53-0400 Body weight 80.29 kg Jovana Kalka PA-C Work Phone: [facility] 03-11-2022 09:53-0400 Diastolic blood pressure 84 mm[Hg] Jovana Kalka PA-C Work Phone: [facility] 03-11-2022 09:53-0400 Heart rate 59 /min Jovana Kalka PA-C Work Phone: [facility] 03-11-2022 09:53-0400 Systolic blood pressure 162 mm[Hg] Jovana Kalka PA-C Work Phone: [facility] 03-06-2022 10:10-0400 Diastolic blood pressure 90 mm[Hg] Maria Del Carmen Leong MD Work Phone: [facility] 03-06-2022 10:10-0400 Systolic blood pressure 142 mm[Hg] Maria Del Carmen Leong MD Work Phone: [facility] 03-06-2022 10:08-0400 Body weight 82.1 kg Maria Del Carmen Leong MD Work Phone: [facility] 03-06-2022 10:08-0400 Heart rate 78 /min Maria Del Carmen Leong MD Work Phone: [facility] 03-06-2022 10:08-0400 Respiratory rate 14 /min Maria Del Carmen Leong MD Work Phone: [facility] 01-22-2022 10:27-0400 Body height 152.4 cm Mari Turner APRN.MAINTENANCE PLUMBER Work Phone: [facility] 01-22-2022 10:270400 Body weight 81.92 kg Mari Turner APRN.MAINTENANCE PLUMBER Work Phone: [facility] 01-22-2022 10:27-0400 Diastolic blood pressure 80 mm[Hg] Mari Turner APRN.MAINTENANCE PLUMBER Work Phone: [facility] 01-22-2022 10:27-0400 Systolic blood pressure 170 mm[Hg] Mari Turner APRN.MAINTENANCE PLUMBER Work Phone: [facility] Encounters Encounter Date Encounter Type Care Provider Facility Start: 09-03-2025 ambulatory Trisha HUTSON Facility:[facility] Start: 09-01-2025 End: 09-01-2025 ambulatory Trisha HUTSON Facility:[facility] Start: 07-26-2025 End: 07-26-[address] Andreas Buenrostro MD -[facility] Work Phone: Start: 07-26-2025 End: 07-26-[address] Andreas Buenrostro MD Work Phone: -[facility] Start: 06-18-2025 End: 06-18-2025 Emergency department patient visit ANDREAS BUENROSTRO Facility:[facility] Start: 06-17-2025 End: 06-17-2025 Patient encounter procedure Arthur Bull DO -[facility] Work Phone: Start: 06-17-2025 End: 06-17-[address] Andreas Buenrostro MD Work Phone: -[facility] Start: 06-13-2025 End: 06-13-2025 Emergency department patient visit Dr. Andreas Buenrostro MD Work Phone: -Emergency Department Work Phone: Start: 06-13-2025 End: 06-13-[address] Andreas Buenrostro MD -[facility] Work Phone: Start: 06-13-2025 End: 06-13-[address] 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, bilateral Start: 04-22-2025 End: 04-22-2025 ambulatory KELIN VETOVITZ Facility:[facility] Start: 04-22-2025 End: 04-22-2025 Subsequent hospital visit by physician Katya [facility] Dominga Mackay Work Phone: Radiology Comment on above: Pain in both knees, unspecified chronicity [M25.561, M25.562] Start: 04-21-2025 End: 04-21-2025 Orders Only Kelin Vetovitz PA-C Work Phone: Orthopaedics Comment on above: Acute pain of both k nees (Primary Dx); Pain in both knees, unspecified chronicity Start: 04-11-2025 End: 04-11-[address] Andreas Buenrostro MD -[facility] Work Phone: Start: 04-11-2025 End: 04-11-[address] Andreas Buenrostro MD Work Phone: [facility] Work Phone: Start: 04-08-2025 End: 04-08-[address] Andreas Buenrostro MD Work Phone: [facility] Work Phone: Start: 04-08-2025 End: 04-08-2025 Patient encounter procedure Arthur Bull DO -Laboratory Work Phone: Start: 04-08-2025 End: 04-08-2025 ambulatory Andreas Buenrostro Facility:[facility] Start: 02-14-2025 End: 02-14-2025 Patient encounter procedure Arthur Bull DO -[facility] Work Phone: Start: 02-14-2025 End: 02-14-2025 ambulatory Andreas Buenrostro Facility[place] Start: 02-14-2025 End: 02-14-2025 ambulatory Andreas Buenrostro Facility:[facility] Start: 01-25-2025 End: 01-25-[address] Andreas Buenrostro MD -[facility] Work Phone: Start: 01-25-2025 End: 02-25-2025 ambulatory Maria Del Carmen Leong MD Work Phone: [facility] Start: 10-22-2024 End: 10-22-2024 ambulatory Andreas Buenrostro Facility:[facility] Start: 02-26-2024 End: 02-26-[address] Andreas Buenrostro Work Phone: [facility] Work Phone: Start: 02-26-2024 End: 02-26-[address] Andreas Buenrostro Work Phone: [facility]-Outpatient Breast Imaging Work Phone: Start: 02-25-2024 ambulatory Maria Del Carmen Leong MD Work Phone: Internal Medicine [facility] Start: 02-24-2024 End: 02-24-[address] Andreas Buenrostro Work Phone: [facility] Work Phone: Start: 02-05-2024 End: 02-05-[address] Andreas Buenrostro Work Phone: [facility] Work Phone: Start: 02-05-2024 End: 02-05-[address] Andreas Buenrostro Work Phone: [facility] Internal Medicine Work Phone: Start: 11-17-2023 End: 11-17-[address] Andreas Buenrostro Work Phone: [facility] Work Phone: Start: 11-17-2023 End: 11-17-[address] Andreas Buenrostro Work Phone: [facility] Gastroenterology Work Phone: Start: 11-03-2023 End: 11-03-[address] Andreas Buenrostro Work Phone: [facility] Work Phone: Start: 11-03-2023 End: 11-03-[address] Andreas Buenrostro Work Phone: [facility] Internal Medicine Work Phone: Start: 08-29-2023 End: 08-29-[address] Andreas Buenrostro Work Phone: [facility] Gastroenterology Work Phone: Start: 08-04-2023 End: 08-04-[address] Kashmir Leong Work Phone: [facility] Work Phone: Start: 08-04-2023 End: 08-04-[address] Kashmir Leong Work Phone: [facility] [place] Start: 08-04-2023 End: 08-04-[address] Kashmir Leong Work Phone: [facility] Internal Medicine Work Phone: Start: 07-30-2023 End: 07-30-2023 Emergency department patient visit Dr. Kashmir Leong Work Phone: [facility]-Emergency Department Work Phone: Start: 07-29-2023 End: 07-29-[address] Kashmir Leong Work Phone: [facility]-Laboratory Work Phone: Start: 07-18-2023 End: 07-18-[address] Kashmir Leong Work Phone: [facility] Work Phone: Start: 05-28-2023 End: 05-28-[address] Kashmir Leong Work Phone: [facility] Gastroenterology Work Phone: Start: 05-01-2023 End: 05-01-[address] Kashmir Leogn Work Phone: [facility] Internal Medicine Work Phone: Start: 04-15-2023 End: 04-15-[address] Kashmir Leong Work Phone: [facility]-Medical Out Work Phone: Start: 04-02-2023 Dr. Kashmir Leong Work Phone: [facility] Start: 04-02-2023 End: 04-02-[address] Kashmir Leong Work Phone: [facility] Work Phone: Start: 04-02-2023 End: 04-02-2023 Dr. Kashmir Leong Work Phone: [facility]-Endoscopy Start: 04-01-2023 End: 04-01-2023 Admission to same day surgery center Dr. Kashmir Leong Work Phone: [facility] Start: 04-01-2023 End: 04-01-2023 Dr. Kashmir Leong Work Phone: [facility] Start: 03-31-[address] Kashmir Leong Work Phone: [facility] Start: 03-31-2023 Dr. Kashmir Leong Work Phone: [phone] [place] [address] [facility] Start: 03-31-2023 End: 03-31-2023 Dr. Kashmir Leong Work Phone: [phone] [place] [address] Internal Medicine Start: 03-27-2023 End: 03-27-2023 Dr. Kashmir Leong Work Phone: [facility]-Now Clinic Start: 03-25-2023 End: 03-25-2023 Dr. Kashmir Leong Work Phone: [facility] Start: 03-17-2023 End: 03-17-2023 Dr. Kashmir Leong Work Phone: [facility]-Emergency Department Start: 03-05-2023 ambulatory Maria Del Carmen Leong MD Work Phone: Internal Medicine Main [place] Start: 02-17-2023 End: 02-17-[address] Kashmir Leong Work Phone: [facility] Work Phone: Start: 02-17-2023 End: 02-17-2023 Dr. Kashmir Leong Work Phone: [facility] Internal Medicine Start: 02-14-2023 End: 02-14-2023 Dr. Kashmir Leong Work Phone: [facility]-Laboratory, Specimen Start: 02-11-2023 End: 02-11-2023 Dr. Kashmir Leong Work Phone: [facility]-Emergency Department Start: 02-04-2023 End: 02-04-[address] Kashmir Leong Work Phone: [facility] Gastroenterology Start: 02-04-2023 End: 02-04-2023 Dr. Kahsmir Leong Work Phone: [facility] Gastroenterology Start: 02-03-2023 End: 02-03-2023 Emergency department patient visit Dr. Kashmir Leong Work Phone: [facility]-Emergency Department Start: 02-03-2023 End: 02-03-2023 Dr. Kashmir Leong Work Phone: [facility]-Emergency Department Start: 02-03-2023 End: 02-03-[address] Kashmir Leong Work Phone: [facility] Work Phone: Start: 02-03-2023 End: 02-03-[address] Kashmir Leong Work Phone: [facility]-Outpatient Breast Imaging Start: 02-03-2023 End: 02-03-2023 Dr. Kashmir Leong Work Phone: [facility]-Outpatient Breast Imaging Start: 01-28-2023 Non-patient / Non-visit Dr. Leela Leong Work Phone: [facility] Start: 01-28-2023 End: 01-28-[address] Kashmir Leong Work Phone: [facility] Work Phone: Start: 01-28-2023 End: 01-28-[address] Kashmir Leong Work Phone: [facility]-Cardiovascular Services Start: 01-28-2023 End: 01-28-2023 Dr. Kashmir Leong Work Phone: [facility] Start: 01-23-2023 End: 01-23-[address] Kashmir Leong Work Phone: [facility] Work Phone: Start: 01-23-2023 End: 01-23-[address] Kashmir [facility] Start: 01-23-2023 End: 01-23-2023 Dr. Kashmir Leong [facility] Phone[facility] Start: 01-23-2023 End: 01-23-[address] Kashmir Leong Work Phone: [facility] Start: 01-23-2023 End: 01-23-2023 Dr. Kashmir Leong Work Phone: [facility] Start: 01-21-2023 End: 01-21-[address] Kashmir Leong Work Phone: [facility] Work Phone: Start: 01-21-2023 End: 01-21-[address] Kashmir Leong [facility] Phone[facility] Start: 01-21-2023 End: 01-21-2023 Dr. Kashmir Leong [facility] Phone[facility] Start: 01-21-2023 End: 01-21-[address] Kashmir Leong Work Phone: [facility] Internal Medicine Start: 01-21-2023 End: 01-21-2023 Dr. Kashmir Leong Work Phone: [facility] Internal Medicine Start: 01-20-2023 End: 01-20-2023 Emergency department patient visit Dr. Kashmir Leong Work Phone: [phone] [place] [address]-Emergency Department Start: 01-20-2023 End: 01-20-2023 Dr. Kashmir Leong Work Phone: [facility]-Emergency Department Start: 01-17-2023 End: 01-17-[address] Kashmir Leong Work Phone: [facility] Gastroenterology Start: 01-17-2023 End: 01-17-2023 Dr. Kashmir Leong Work Phone: [facility] Gastroenterology Start: 01-14-2023 End: 01-15-2023 Emergency department patient visit Dr. Kashmir Leong Work Phone: [facility]-Emergency Department Start: 01-14-2023 End: 01-15-2023 Dr. Kashmir Leong Work Phone: [phone] [place] [address]-Emergency Department Start: 01-13-2023 Non-patient / Non-visit Dr. Leela Leong Work Phone: [facility] Internal Medicine Start: 01-13-2023 Dr. Kashmir Leong Work Phone: [facility] Internal Medicine Start: 01-10-2023 End: 01-10-2023 Emergency department patient visit Dr. Kashmir Leong Work Phone: [facility]-Emergency Department Start: 01-10-2023 End: 01-10-2023 Dr. Kashmir Leong Work Phone: [facility]-Emergency Department Start: 01-04-2023 Non-patient / Non-visit Dr. Leela Leong Work Phone: [facility] Inpatient Physicians Start: 01-04-2023 Dr. Kashmir Leong Work Phone: [facility] Inpatient Physicians Start: 01-03-2023 Non-patient / Non-visit Dr. Leela Leong Work Phone: [facility] Start: 01-03-2023 Dr. Kashmir Leong Work Phone: [facility] Start: 01-03-2023 Non-patient / Non-visit Dr. Leela Leong Work Phone: [facility] Inpatient Physicians Start: 01-03-2023 Dr. Kashmir Leong Work Phone: [facility] Inpatient Physicians Start: 01-02-2023 Non-patient / Non-visit Dr. Leela Leong Work Phone: [facility] Start: 01-02-2023 Dr. Kashmir Leong Work Phone: [facility] Start: 01-02-2023 Non-patient / Non-visit Dr. Leela Leong Work Phone: [facility] Inpatient Physicians Start: 01-02-2023 Dr. Kashmir Leong Work Phone: [facility] Inpatient Physicians Start: 01-01-2023 Non-patient / Non-visit Dr. Leela Leong Work Phone: [facility] Start: 01-01-2023 Dr. Kashmir Leong Work Phone: [facility] Start: 01-01-2023 Non-patient / Non-visit Dr. Leela Leong Work Phone: [facility] Inpatient Physicians Start: 01-01-2023 Dr. Kashmir Leong Work Phone: [facility] Inpatient Physicians Start: 12-31-2022 Non-patient / Non-visit Dr. Leela Leong Work Phone: [facility] Start: 12-31-2022 Dr. Kashmir Leong Work Phone: [facility] Start: 12-31-2022 Non-patient / Non-visit Dr. Leela Leong Work Phone: [facility] Inpatient Physicians Start: 12-31-2022 Dr. Kashmir Leong Work Phone: [facility] Inpatient Physicians Start: 12-30-2022 Non-patient / Non-visit Dr. Leela Leong Work Phone: [facility] Start: 12-30-2022 Dr. Kashmir Leong Work Phone: [facility] Start: 12-30-2022 End: 01-04-2023 Evaluation and management of inpatient Dr. Kashmir Leong [facility] Phone[facility] Start: 12-30-2022 End: 01-04-2023 Dr. Kashmir Leong Work Phone: [facility] Care Unit Start: 12-28-2022 End: 12-28-2022 Emergency department patient visit Dr. Kasmhir Leong Work Phone: [facility]-Emergency Department Start: 12-28-2022 End: 12-28-2022 Dr. Kashmir Leong Work Phone: [facility]-Emergency Department Start: 12-27-2022 End: 12-27-[address] Kashmir Leong Work Phone: [facility]-Laboratory Start: 12-27-2022 End: 12-27-2022 Dr. Kashmir Leong Work Phone: [facility]-Laboratory Start: 12-24-2022 End: 12-24-[address] Kashmir Leong Work Phone: [facility] Gastroenterology Start: 12-24-2022 End: 12-24-2022 Dr. Kashmir Leong Work Phone: [facility] Gastroenterology Start: 12-06-2022 End: 12-06-2022 Patient encounter procedure Thao Pineda APRN.MAINTENANCE PLUMBER Work Phone: [facility] Comment on above: Essential hypertensi on, benign (Primary Dx) Start: 11-08-2022 Telephone encounter Thao stoddard COOKY MACHINE OPERATOR.MAINTENANCE PLUMBER Work Phone: [facility] Comment on above: Results Start: 11-06-2022 Telephone encounter Thao stoddard COOKY MACHINE OPERATOR.MAINTENANCE PLUMBER Work Phone: [facility] Comment on above: Results Start: 11-04-2022 End: 11-04-2022 Patient encounter procedure Thao Pineda COOKY MACHINE OPERATOR.MAINTENANCE PLUMBER Work Phone: [facility] Comment on above: Chronic low back raf n with left-sided sciatica, unspecified back pain laterality (Primary Dx); Essential hypertension, benign; Acquired hypothyroidism; Crohn's disease involving terminal ileum (HCC); Mixed hyperlipidemia; Hypokalemia Start: 11-01-2022 Refill Maria Del Carmen Leong MD Work Phone: [address] [place] [address] Comment on above: Refill Request Start: 08-15-2022 Refill Maria Del Carmen Leong MD Work Phone: [facility] Comment on above: Refill Request Start: 07-19-2022 Refill Sena Peña APRN.MAINTENANCE PLUMBER Work Phone: [facility] Comment on above: Refill Request Start: 07-19-2022 Telephone encounter Thao stoddard COOKY MACHINE OPERATOR.MAINTENANCE PLUMBER Work Phone: [facility] Comment on above: error Start: 06-17-2022 Telephone encounter Kashmir Leong MD Work Phone: [facility] Comment on above: Results Start: 06-17-2022 End: 06-17-2022 Patient encounter procedure Maria Del Carmen Leong MD Work Phone: [facility] Comment on above: Periumbilical abdomi nal pain (Primary Dx); Acute constipation Start: 06-17-2022 End: 06-17-2022 Subsequent hospital visit by physician Katya [facility] [place] Work Phone: Radiology Comment on above: Periumbilical abdomi nal pain [R10.33] Start: 06-15-2022 End: 06-15-2022 Patient encounter procedure Maria Del Carmen Leong MD Work Phone: [facility] [place] Comment on above: Periumbilical abdomi nal pain [...] patient and report [place] Nurse Work Phone: [facility] [place] Comment on above: Need for vaccination (Primary Dx) Start: 04-23-2022 Telephone encounter Liz dunlap APRN.MAINTENANCE PLUMBER Work Phone: [facility] [place] Comment on above: Results Start: 04-23-2022 End: 04-23-2022 Subsequent hospital visit by physician [facility] Work Phone: [facility] Comment on above: Left lower quadrant abdominal pain [R10.32] Right lower quadrant pain [R10.31] Start: 04-22-2022 End: 04-22-2022 Patient encounter procedure Liz Bean APRN.CNP Work Phone: [facility] [place] Comment on above: Left lower quadrant abdominal pain (Primary Dx); RLQ abdominal pain; Pelvic pain; Vaginal itching Start: 04-22-2022 Telephone encounter Thao stoddard APRN.MAINTENANCE PLUMBER Work Phone: [facility] [place] Comment on above: Orders Start: 04-17-2022 Refill Sena Peña APRN.MAINTENANCE PLUMBER Work Phone: [facility] [place] Comment on above: Refill Request Start: 04-03-2022 End: 04-03-2022 Subsequent hospital visit by physician [facility] Work Phone: Molecular Imaging Comment on above: Early satiety [R68.8 1] Start: 03-26-2022 ambulatory [facility]ARC [facility] Comment on above: Isaac rahman Start: 03-19-2022 Refill Briana Alonzo APR N.MAINTENANCE PLUMBER Work Phone: Gastroenterology Comment on above: Refill Request Start: 03-11-2022 End: 03-11-2022 Patient encounter procedure Jovana Valladares PA-C [facility] Comment on above: Crohn's disease invo lving terminal ileum (HCC) (Primary Dx); Sigmoid diverticulitis; Chronic antral gastritis; Early satiety; Nausea; Skin exam, screening for cancer Start: 03-08-2022 Telephone encounter Thao stoddard APRN.MAINTENANCE PLUMBER Work Phone: [facility] Comment on above: Results Start: 03-06-2022 End: 03-06-2022 Patient encounter procedure Maria Del Carmen Leong MD Work Phone: [facility] Comment on above: Diverticulitis (Prim gita Dx); Crohn's disease involving terminal ileum (HCC); Acquired hypothyroidism; Essential hypertension, benign; Type 2 diabetes mellitus without retinopathy (HCC) Start: 02-28-2022 Telephone encounter Kashmir Leong MD Work Phone: [facility] [place] Comment on above: Results (breast ultr asound) Start: 02-27-2022 End: 02-27-2022 Subsequent hospital visit by physician [facility] Work Phone: Radiology Comment on above: Abnormal mammogram [ R92.8] Start: 02-27-2022 Telephone encounter Thao stoddard APRN.MAINTENANCE PLUMBER Work Phone: Family Medicine [place] Comment on above: Results Start: 01-24-2022 End: 01-24-2022 Subsequent hospital visit by physician Screen Mammo [facility] M[facility]ogram Comment on above: Canceled (Pt cx: Res cheduled) Start: 01-23-2022 Telephone encounter Mari cabrera APRN.CNP Work Phone: OB/Gynecology Comment on above: Opened In Error Start: 01-22-2022 Documentation procedure Mammog vonnie Coordinator [facility] Start: 01-22-2022 Letter encounter Mammography Coordinator [facility] Department Start: 01-22-2022 End: 01-22-2022 Patient encounter procedure Mari Turner APRN.CNP Work Phone: OB/Gynecology Comment on above: Encounter for gyneco logical examination (general) (routine) without abnormal findings (Primary Dx); Encounter for screening mammogram for breast cancer Start: 01-22-2022 End: 01-22-2022 Patient encounter status Mari Turner APRN.CNP Work Phone: OB/Gynecology Start: 01-22-2022 End: 01-22-2022 Subsequent hospital visit by physician Screen Mammo [facility] Comment on above: Encounter for screen ing mammogram for breast cancer [Z12.31] Start: 08-25-2020 End: 08-25-2020 Subsequent hospital visit by physician Xr [facility] [place] Work Phone: Radiology Comment on above: Acute right ankle pa in [M25.571] Start: 01-20-2018 Ambulatory AMANDA ALBARRAN [facility] Start: 01-01-2018 Ambulatory [facility] Procedures Date Procedure Procedure Detail Performing Clinician Start: 06-13-2025 X-ray of chest, PA a nd lateral views Dr. Andreas Buenrostro MD Work Phone: Start: 06-13-[address] Andreas Buenrostro MD Work Phone: Start: 04-22-2025 Arthrocentesis aspir &/inj major jt/bursa w/o us Kelin Vetovitz PA-C Work Phone: Start: 04-08-2025 Plain X-ray [...] 04-23-2022 Ct abdomen & pelvis w/contrast material Liz [facility] COOKY MACHINE OPERATOR.MAINTENANCE PLUMBER Work Phone: Start: 04-22-2022 Urnls dip stick/tabl et rgnt auto w/o microscopy [facility] COOKY MACHINE OPERATOR.MAINTENANCE PLUMBER Work Phone: Start: 04-03-2022 Gastric emptying jovany ging study Jovana Valladares PA-C Work Phone: Start: 02-27-2022 Us breast uni real t alejandra with image limited Thao Pineda COOKY MACHINE OPERATOR.MAINTENANCE PLUMBER Work Phone: Start: 01-24-2022 End: 01-24-2022 Screening mammography bi 2-view breast inc cad Mari Turner COOKY MACHINE OPERATOR.MAINTENANCE PLUMBER Work Phone: Start: 01-22-2022 End: 01-22-2022 Mammography Bulk Order Provider Start: 08-25-2020 Radex ankle complete minimum 3 views Maria Del Carmen Leong MD Work Phone: Start: 05-22-2020 Colonoscopy Mari cabrera COOKY MACHINE OPERATOR.MAINTENANCE PLUMBER Work Phone: Clostridium difficil e detection Dr. [...] RSV Vaccine (1 - 1-dose 75+ series) [facility] Start: 11-04-2027 Lipid panel Lipid Screening [facility] Start: 11-05-2025 Diabetes Screening Diabetes Screenin g [facility] Start: 07-26-2025 [facility] Start: 06-27-2025 Influenza vaccination Influenz a Vaccine (Season Ended) [facility] Start: 06-13-2025 [facility] Start: 06-13-2025 [facility] Start: 05-22-2025 Colonoscopy COLONOSCOPY [facility] Start: 05-22-2025 COLORECTAL CANCER SCREENING COLORECTAL CANCER SCREENING [facility] Start: 05-22-2025 Screening for malign ant neoplasm of colon [facility] Start: 04-22-2025 End: 04-22-2025 Patient encounter procedure Radiology Comment on above: xray knees swollen and pa inful Start: 03-17-2025 PNEUMOCOCCAL (1 - PCV) PNEUMOCOCCAL (1 - PCV) [facility] Comment on above: Postponed from 05/07 (Postponed - Not Clinically Indicated) Start: 03-17-2025 PNEUMOCOCCAL (2 - PCV) PNEUMOCOCCAL (2 - PCV) [facility] Comment on above: Postponed from 07/27 (Postponed - Not Clinically Indicated) Start: 10-27-2024 Advance Directive Discussion Advance Directive Discussion [facility] Start: 10-27-2024 Medicare Advantage A nnual Wellness Visit Medicare Advantage Annual Wellness Visit [facility] Start: 06-27-2024 Covid-19 Vaccine ( season) Covid-19 Vaccine ( season) [facility] Start: 06-27-2024 Influenza vaccination Influenza Vacc ine (#1) [facility] Start: 2024 Advance Directive Discussion Advance Directive Discussion [facility] Start: 12-06-2023 ANNUAL PCP TEAM BEND SORTER VALENTE DISEASE VISIT ANNUAL PCP TEAM CHRONIC DISEASE VISIT [facility] Start: 12-06-2023 BP CONTROLLED (<130/80) BP CONTROLLE D (<130/80) [facility] Start: 11-17-2023 Protein measurement [facility] Start: 11-17-2023 In-vitro immunologic test [facility] Start: 11-17-2023 Procedure [facility] Start: 11-04-2023 ANNUAL PCP TEAM BEND SORTER VALENTE DISEASE VISIT ANNUAL PCP TEAM CHRONIC DISEASE VISIT [facility] Start: 11-04-2023 Hepatitis B surface antibody level LDL CHOLESTEROL [facility] Start: 06-27-2023 Covid-19 Vaccine ( season) Covid-19 Vaccine () [facility] Start: 06-27-2023 Influenza vaccination INFLUENZ A (Season Ended) [facility] Start: 06-17-2023 ANNUAL PCP TEAM BEND SORTER VALENTE DISEASE VISIT ANNUAL PCP TEAM CHRONIC DISEASE VISIT [facility] Start: 06-15-2023 ANNUAL PCP TEAM BEND SORTER VALENTE DISEASE VISIT ANNUAL PCP TEAM CHRONIC DISEASE VISIT [facility] Start: 05-05-2023 Hemoglobin A1c/Hemoglobin.total in Blood HBA1C [facility] Start: 04-22-2023 ANNUAL PCP TEAM BEND SORTER VALENTE DISEASE VISIT ANNUAL PCP TEAM CHRONIC DISEASE VISIT [facility] Start: 04-15-2023 Iv infusion therapy prophylaxis/dx ea hour THER/PROPH/DIAG IV INF ADDON [facility] Start: 04-15-2023 Iv infusion therapy/prophylaxis /dx 1st to 1 hr THER/PROPH/DIAG IV INF INIT [facility] Start: 04-15-2023 SHINGRIX VACCINE (2 of 2) RIVERA GRIX VACCINE (2 of 2) [facility] Start: 04-04-2023 ANNUAL PCP TEAM BEND SORTER VALENTE DISEASE VISIT ANNUAL PCP TEAM CHRONIC DISEASE VISIT [facility] Start: 04-04-2023 COVID-19 VACCINE (#1) COVID-19 VACCI NE (#1) [facility] Comment on above: Postponed from 05/07 (Declined at this time) Postponed from 11/07 (Declined at this time) Start: 04-04-2023 MENINGOCOCCAL B: 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 (1 of 4 - Increased Risk Bexsero 2-dose series) MENINGOCOCCAL B: Consider based on risk (1 of 4 - Increased Risk Bexsero 2-dose series) [facility] Comment on above: Postponed from 05/07 (Declined at this time) Start: 04-04-2023 MMR (1 of 2 - Risk 2 -dose series) MMR (1 of 2 - Risk 2-dose series) [facility] Comment on above: Postponed from 05/07 (Declined at this time) Start: 04-04-2023 SHINGRIX VACCINE (1 of 2) RIVERA GRIX VACCINE (1 of 2) [facility] Comment on above: Postponed from 05/07 (Declined at this time) Start: 04-02-2023 Patient discharge [facility] Start: 03-06-2023 ANNUAL PCP TEAM BEND SORTER VALENTE DISEASE VISIT ANNUAL PCP TEAM CHRONIC DISEASE VISIT [facility] Start: 03-06-2023 Hepatitis B screening URINE ALBUMIN:CREATININE RATIO [facility] Start: 03-06-2023 Hepatitis B surface antibody level LDL CHOLESTEROL [facility] Start: 01-24-2023 Mammography MAMMOGRAM [facility] Start: 01-24-2023 Screening for malign ant neoplasm of breast Mammogram Screening [facility] Start: 01-22-2023 Mammography MAMMOGRAM [facility] Start: 01-21-2023 Patient referral [facility] Work Phone: Start: 01-04-2023 Patient discharge [facility] Start: 12-30-2022 Following clinical p athway protocol [facility] Start: 12-30-2022 Assessment of risk o f venous thromboembolism [facility] Start: 12-30-2022 Insertion of cathete r into peripheral vein [facility] Start: 12-30-2022 Providing care accor ding to standard [facility] Start: 12-30-2022 Referral to gastroenterology service [facility] Start: 12-30-2022 Referral to occupati onal therapist [facility] Start: 12-30-2022 Referral to service [facility] Start: 12-30-2022 [facility] Start: 12-30-2022 Admission procedure [facility] Start: 12-30-2022 Enteric precautions [facility] Start: 12-28-2022 Emergency department visit moderate severity [facility] Start: 12-28-2022 Ther proph/dx njx iv push single/1st sbst/drug [facility] Start: 12-28-2022 Therapeutic injectio n iv push each new drug [facility] Start: 12-27-2022 Elastase, pancreatic (el-1), fecal; quantitative [facility] Start: 12-27-2022 Procedure [facility] Start: 12-27-2022 Protein measurement [facility] Start: 12-27-2022 [facility] Start: 12-27-2022 Celiac disease screen [facility] Start: 12-27-2022 Immunoglobulin measurement [facility] Start: 12-27-2022 Procedure [facility] Start: 12-27-2022 Serum immunofixation [facility] [place] Start: 12-27-2022 [facility] Start: 11-04-2022 End: 01-04-2023 Comprehensive metabolic 2000 panel - Serum or Plasma [facility] Work Phone: Comment on above: Expected: 11/04/2022 , Expires: 01/04/2023 Start: 11-04-2022 End: 01-04-2023 Lipid 1996 panel - Serum or Plasma [facility] Work Phone: Comment on above: Expected: 11/04/2022 , Expires: 01/04/2023 Start: 10-06-2022 HEPATITIS A (3 of 3 - Hep A Twinrix risk 3-dose series) HEPATITIS A (3 of 3 - Hep A Twinrix risk 3-dose series) [facility] Start: 10-06-2022 HEPATITIS B (3 of 3 - Hep B Twinrix risk 3-dose series) HEPATITIS B (3 of 3 - Hep B Twinrix risk 3-dose series) [facility] Start: 09-06-2022 Hemoglobin A1c/Hemoglobin.total in Blood HBA1C [facility] Start: 08-08-2022 ANNUAL PCP TEAM BEND SORTER VALENTE DISEASE VISIT ANNUAL PCP TEAM CHRONIC DISEASE VISIT [facility] Start: 08-08-2022 BP CONTROLLED (<130/80) BP CONTROLLE D (<130/80) [facility] Start: 08-08-2022 Urine microalbumin profile DTAP,TDAP ,TD (1 - Tdap) [facility] Comment on above: Postponed from 05/07 (Declined at this time) Start: 06-27-2022 Influenza vaccination INFLUENZA (#1) [facility] Start: 05-21-2022 3 comp foot exam completed DIABETIC FOOT EXAM [facility] Start: 05-21-2022 Hepatitis B surface antibody level LDL CHOLESTEROL [facility] Start: 05-02-2022 HEPATITIS A (2 of 3 - Hep A Twinrix risk 3-dose series) HEPATITIS A (2 of 3 - Hep A Twinrix risk 3-dose series) [facility] Start: 05-02-2022 HEPATITIS B (2 of 3 - Hep B Twinrix risk 3-dose series) HEPATITIS B (2 of 3 - Hep B Twinrix risk 3-dose series) [facility] Start: 04-22-2022 End: 06-22-2022 CBC W Auto Differential panel - Blood [facility] Work Phone: Comment on above: Expected: 04/22/2022 , Expires: 06/22/2022 Start: 04-22-2022 End: 06-22-2022 Comprehensive metabolic 2000 panel - Serum or Plasma [facility] Work Phone: Comment on above: Expected: 04/22/2022 , Expires: 06/22/2022 Start: 04-22-2022 End: 06-22-2022 Lipase [Enzymatic activity/volume] in Serum or Plasma [facility] Work Phone: Comment on above: Expected: 04/22/2022 , Expires: 06/22/2022 Start: 03-11-2022 End: 05-11-2022 CELIAC SCREEN WITH REFLEX [facility] Work Phone: Comment on above: Expected: 03/11/2022 , Expires: 05/11/2022 Start: 03-11-2022 End: 05-11-2022 HEPATITIS A ANTIBODY, IGG [facility] Work Phone: Comment on above: Expected: 03/11/2022 , Expires: 05/11/2022 Start: 03-11-2022 End: 05-11-2022 Hepatitis B virus core Ab [Presence] in Serum [facility] Work Phone: Comment on above: Expected: 03/11/2022 , Expires: 05/11/2022 Start: 03-11-2022 End: 05-11-2022 Hepatitis B virus surface Ab [Presence] in Serum by Immunoassay [facility] Work Phone: Comment on above: Expected: 03/11/2022 , Expires: 05/11/2022 Start: 03-11-2022 End: 05-11-2022 Hepatitis B virus surface Ab [Units/volume] in Serum [facility] Work Phone: Comment on above: Expected: 03/11/2022 , Expires: 05/11/2022 Start: 03-11-2022 End: 05-11-[address] [facility] Work Phone: Comment on above: Expected: 03/11/2022 , Expires: 05/11/2022 Start: 03-11-2022 End: 05-11-2022 VITAMIN D [address] [facility] Work Phone: Comment on above: Expected: 03/11/2022 , Expires: 05/11/2022 Start: 03-06-2022 End: 05-06-2022 ALBUMIN/CREAT RATIO RND UR [facility] Work Phone: Comment on above: Expected: 03/06/2022 , Expires: 05/06/2022 Start: 03-06-2022 End: 05-06-2022 Comprehensive metabolic 2000 panel - Serum or Plasma [facility] Work Phone: Comment on above: Expected: 03/06/2022 , Expires: 05/06/2022 Start: 03-06-2022 End: 05-06-2022 Hemoglobin A1c/Hemoglobin.total in Blood [facility] Work Phone: Comment on above: Expected: 03/06/2022 , Expires: 05/06/2022 Start: 03-06-2022 End: 05-06-2022 LIPID PANEL, NONFASTING [facility] Work Phone: Comment on above: Expected: 03/06/2022 , Expires: 05/06/2022 Start: 03-06-2022 End: 05-06-2022 Thyrotropin [Units/volume] in Serum or Plasma TSH BLD Lab Routine Acquired hypothyroidism Expected: 03/06/2022, Expires: 05/06/2022 [facility] Work Phone: Comment on above: Expected: 03/06/2022 , Expires: 05/06/2022 Start: 11-21-2021 Hemoglobin A1c/Hemoglobin.total in Blood HBA1C [facility] Start: 08-25-2021 Hepatitis B screening URINE ALBUMIN:CREATININE RATIO [facility] Start: 11-05-2019 Hepatitis C antibody , confirmatory test DILATED RETINAL EXAM [facility] Start: 2019 RSV Vaccine (1 - 1-d ose 60+ series) RSV Vaccine (1 - 1-dose 60+ series) [facility] Start: 2019 RSV Vaccine (1 - Ris k 60-74 years 1-dose series) RSV Vaccine (1 - Risk 60-74 years 1-dose series) [facility] Start: 04-22-2015 FECAL OCCULT BLOOD FECAL OCCULT BLOO D [facility] Start: 04-22-2015 Screening for malign ant neoplasm of colon Fecal Occult Blood [facility] Start: 2009 SHINGRIX VACCINE (1 of 2) RIVERA GRIX VACCINE (1 of 2) [facility] Start: 2004 COLOGUARD (FIT-DNA) COLOGUARD (FIT-D NA) [facility] Start: [address] [facility] Start: 2004 Screening for malign ant neoplasm of colon [facility] Start: 2004 SIGMOIDOSCOPY SIGMOIDOSCOPY [facility] Start: 1978 HEPATITIS B (1 of 3 - Risk 3-dose series) HEPATITIS B (1 of 3 - Risk 3-dose series) [facility] Start: 1978 Urine microalbumin profile [facility] Start: 1977 MMR (1 of 2 - Risk 2 -dose series) MMR (1 of 2 - Risk 2-dose series) [facility] Start: 1977 MMR Vaccine (1 of 2 - Risk 2-dose series) MMR Vaccine (1 of 2 - Risk 2-dose series) [facility] Start: 1969 Meningococcal B Vacc ine: Consider Based On Risk (1 of 4 - Increased Risk) Meningococcal B Vaccine: Consider Based On Risk (1 of 4 - Increased Risk) [facility] Start: 1969 MENINGOCOCCAL B: 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 (1 of 4 - Increased Risk Bexsero 2-dose series) MENINGOCOCCAL B: Consider based on risk (1 of 4 - Increased Risk Bexsero 2-dose series) [facility] Start: 1964 COVID-19 VACCINE (#1) COVID-19 VACCI NE (#1) [facility] Start: 1964 COVID-19 VACCINE (1) COVID-19 VACCIN E (1) [facility] Start: 1960 HEPATITIS A (1 of 2 - Risk 2-dose series) HEPATITIS A (1 of 2 - Risk 2-dose series) [facility] Albumin [Moles/volum e] in Serum or Plasma [facility] Antibody to lupus [place] protein measurement [facility] Antibody to SS-A measurement [facility] Bacteria identified in Urine by Culture URINE CULTURE Microbiology Routine Left lower quadrant abdominal pain RLQ abdominal pain Pelvic pain Ordered: 04/22/2022 [facility] Work Phone: Comment on above: Ordered: 04/22/2022 Bacteria identified in Urine by Culture URINE CULTURE Microbiology Routine Periumbilical abdominal pain Ordered: 06/15/2022 [facility] Work Phone: Comment on above: Ordered: 06/15/2022 Centromere protein B Ab [Units/volume] in Serum [facility] Chromatin Ab [Units/volume] in Serum or Plasma [facility] End: 03-11-2023 COLONOSCOPY DIAGNOSTIC COLONOSCOPY DIAGNOSTIC Endoscopy Routine Crohn's disease involving terminal ileum (HCC) Sigmoid diverticulitis 1 Occurrences starting 03/11/2022 until 03/11/2023 [facility] Work Phone: Comment on above: 1 Occurrences starti ng 03/11/2022 until 03/11/2023 End: 05-09-2022 COLONOSCOPY DIAGNOSTIC COLONOSCOPY DIAGNOSTIC Endoscopy Routine Crohn's disease involving terminal ileum (HCC) Sigmoid diverticulitis 1 Occurrences starting 05/09/2022 until 05/09/2022 [facility] Work Phone: Comment on above: 1 Occurrences starti ng 05/09/2022 until 05/09/2022 End: 05-22-2023 Ct abdomen & pelvis w/contrast material CT ABD/PEL W IVCON Radiology STAT Left lower quadrant abdominal pain RLQ abdominal pain Pelvic pain 1 Occurrences starting 04/22/2022 until 05/22/2023 [facility] Work Phone: Comment on above: 1 Occurrences starti ng 04/22/2022 until 05/22/2023 End: 02-24-2026 DBT Breast - bilateral screening RADHA SCREENING W KRISTAL Radiology Routine Encounter for screening mammogram for breast cancer 1 Occurrences starting 01/25/2025 until 02/24/2026 [facility] Work Phone: Comment on above: 1 Occurrences starti ng 01/25/2025 until 02/24/2026 DNA double strand Ab [Units/volume] in Serum [facility] Electrophoresis: [id number] [facility] Electrophoresis: saleem ma globulin [facility] End: 04-10-2023 Gastric emptying imaging study NM GASTRIC EMPTYING SOLID Radiology Routine Early satiety Nausea 1 Occurrences starting 03/11/2022 until 04/10/2023 [facility] Work Phone: Comment on above: 1 Occurrences starti ng 03/11/2022 until 04/10/2023 Globulin measurement [facility] Hepatitis a & b vacc ine hepa-hepb adult im HEPA/HEPB VACCINE ADULT IM Immunization/Injection Routine Need for vaccination Ordered: 04/22/2022 [facility] Work Phone: Comment on above: Ordered: 04/22/2022 IgA [Mass/volume] in Serum or Plasma [facility] IgE [Units/volume] i n Serum or Plasma [facility] IgG [Mass/volume] in Serum or Plasma [facility] IgM [Mass/volume] in Serum or Plasma [facility] Ruby-1 extractable nuc lear Ab [Units/volume] in Serum [facility] End: 04-03-2024 RADHA SCREENING RADHA SCREENING Radiology Routine Encounter for screening mammogram for breast cancer 1 Occurrences starting 03/05/2023 until 04/03/2024 [facility] Work Phone: Comment on above: 1 Occurrences starti ng 03/05/2023 until 04/03/2024 Measurement of immunoglobulin A in serum specimen [facility] Breast - bilatera l Screening [facility] MG Breast - bilatera l Screening [facility] End: 03-26-2025 MG Breast Screening RADHA SCREENING Radiology Routine Encounter for screening mammogram for breast cancer 1 Occurrences starting 02/25/2024 until 03/26/2025 [facility] Work Phone: Comment on above: 1 Occurrences starti ng 02/25/2024 until 03/26/2025 Mycobacterium tuberc ulosis tuberculin stimulated gamma interferon [Presence] in Blood [facility] Neutrophil cytoplasm ic Ab.classic [Units/volume] in Serum [facility] Ova and parasites identified in Unspecified specimen by Light microscopy [facility] Ova and parasites identified in Unspecified specimen by Light microscopy [facility] P-ANCA measurement [facility] Patient Education [facility] Work Phone: Patient referral [facility] Work Phone: Procedure [facility] Protein electrophore sis panel - Serum or Plasma [facility] Protein measurement [facility] [id number] extractable n uclear Ab [Units/volume] in Serum by Immunoassay [facility] End: 02-21-2023 Screening mammography bi 2-view breast inc cad RADHA SCREENING Radiology Routine Encounter for screening mammogram for breast cancer 1 Occurrences starting 01/22/2022 until 02/21/2023 [facility] Work Phone: Comment on above: 1 Occurrences starti ng 01/22/2022 until 02/21/2023 Serum protein electrophoresis [facility] Garcia extractable nu clear Ab [Presence] in Serum [facility] Tissue transglutamin ase IgA Ab [Units/volume] in Serum [facility] UA DIP OB, URINE (POC) UA DIP OB , URINE (POC) Lab Routine Left lower quadrant abdominal pain RLQ abdominal pain Pelvic pain Ordered: 04/22/2022 [facility] Work Phone: Comment on above: Ordered: 04/22/2022 Urinalysis complete panel - Urine URINALYSIS, WITH MICROSCOPIC Lab Routine Left lower quadrant abdominal pain RLQ abdominal pain Pelvic pain Ordered: 04/22/2022 [facility] Work Phone: Comment on above: Ordered: 04/22/2022 US Carotid arteries [facility] End: 07-15-2023 XR ABDOMEN 1V SUPINE XR ABDOMEN 1V SUPINE Radiology Routine Periumbilical abdominal pain Acute constipation 1 Occurrences starting 06/15/2022 until 07/15/2023 [facility] Work Phone: Comment on above: 1 Occurrences starti ng 06/15/2022 until 07/15/2023 End: 05-21-2026 XR Knee - bilateral 4 Views XR KNEE GENERAL 4V AP BOTH/PA BOTH/LAT/MERC BILATERAL Radiology Routine Pain in both knees, unspecified chronicity 1 Occurrences starting 04/21/2025 until 05/21/2026 [facility] Work Phone: Comment on above: 1 Occurrences starti ng 04/21/2025 until 05/21/2026 XR Knee - bilateral 4 Views XR KNEE GENERAL 4V AP BOTH/PA BOTH/LAT/MERC BILATERAL Radiology Routine Pain in both knees, unspecified chronicity 04/22/2025 9:[address] [facility] Work Phone: [facility] Immunizations Immunization Date Immunization Notes Care Provider Chirag joy 07-26-2025 Seasonal trivalent influenza vaccine, adjuvanted, preservative free Dr. Andreas Buenrostro MD Work Phone: [facility] 08-06-2024 Seasonal trivalent influenza vaccine, adjuvanted, preservative free Dr. Andreas Buenrostro MD Work Phone: [facility] 09-10-2023 hepatitis A and hepatitis B vaccine Dr. Andreas Buenrostro Work Phone: [facility] 07-09-2023 Influenza, injectabl e, Madin Alicja Canine Kidney, preservative free, quadrivalent Dr. Kashmir Leong Work Phone: [facility] 07-09-2023 influenza, injectabl e, quadrivalent, contains preservative Maria Del Carmen Leong MD Work Phone: [facility] 07-09-2023 influenza virus vaccine, unspecified formulation Xr [place] Work Phone: [facility] 04-23-2023 Pneumococcal Vaccine PCV20 (Prevnar 20) Dr. Kashmir Leong Work Phone: [facility] 04-23-[address] Kashmir Leong Work Phone: [facility] 03-20-2023 hepatitis A and hepatitis B vaccine Dr. Kashmir Leong Work Phone: [facility] 02-18-2023 hepatitis A and hepatitis B vaccine Dr. Kashmir Leong Work Phone: [facility] 02-18-2023 hepatitis B vaccine, adult dosage Maria Del Carmen Leong MD Work Phone: [facility] 02-18-2023 zoster vaccine recombinant Maria Del Carmen Leong MD Work Phone: [facility] 05-06-2022 hepatitis A and hepatitis B vaccine Mi Nurse Work Phone: [facility] Work Phone: 05-06-2022 hepatitis B vaccine, unspecified formulation Oh Nurse Work Phone: [facility] 04-04-2022 hepatitis A and hepatitis B vaccine Sena Laguerrehof COOKY MACHINE OPERATOR.MAINTENANCE PLUMBER Work Phone: [facility] 04-04-2022 hepatitis B vaccine, unspecified formulation Sena Robertf COOKY MACHINE OPERATOR.MAINTENANCE PLUMBER Work Phone: [facility] 08-08-2021 influenza, injectabl e, quadrivalent, contains preservative Mari Turner COOKY MACHINE OPERATOR.MAINTENANCE PLUMBER Work Phone: [facility] 08-08-2021 influenza, injectabl e, quadrivalent, preservative free Dr. Kashmir Leong Work Phone: [facility] 08-08-2021 influenza, seasonal, injectable Dr. Kashmir Leong Work Phone: [facility] 06-27-2020 influenza, injectabl e, quadrivalent, preservative free Sena Peña COOKY MACHINE OPERATOR.MAINTENANCE PLUMBER Work Phone: [facility] Work Phone: 06-27-2020 influenza, seasonal, injectable Dr. Kashmir Leong Work Phone: [facility] 07-23-2019 Influenza, injectabl e, Madin [place] Canine Kidney, quadrivalent with preservative Sena Laguerrehof COOKY MACHINE OPERATOR.MAINTENANCE PLUMBER Work Phone: [facility] Work Phone: 07-23-2019 Influenza, injectabl e, Madin [place] Canine Kidney, preservative free, quadrivalent Dr. Kashmir Leong Work Phone: [facility] 07-10-2018 influenza, injectabl e, quadrivalent, preservative free Mari Turner COOKY MACHINE OPERATOR.MAINTENANCE PLUMBER Work Phone: [facility] 07-10-2018 influenza, seasonal, injectable Dr. Kashmir eLong Work Phone: [facility] 07-25-2016 influenza, injectabl e, quadrivalent, contains preservative Mari Turner APRN.MAINTENANCE PLUMBER Work Phone: [facility] 07-25-2016 influenza, injectabl e, quadrivalent, preservative free Dr. Kashmir Leong Work Phone: [facility] 07-25-2016 influenza, seasonal, injectable Dr. Kashmir Leong Work Phone: [facility] 07-12-2015 influenza, injectabl e, quadrivalent, preservative free Dr. Kashmir Leong Work Phone: [facility] 07-12-2015 influenza, seasonal, injectable Mari Turner APRN.MAINTENANCE PLUMBER Work Phone: [facility] Work Phone: 07-12-2015 influenza, seasonal, injectable, preservative free Sena Peña APRN.MAINTENANCE PLUMBER Work Phone: [facility] Work Phone: 07-12-2015 Seasonal, quadrivale nt, recombinant, injectable influenza vaccine, preservative free Dr. Kashmir Leong Work Phone: [facility] 07-27-[address] Kashmir Leong Work Phone: [facility] 07-27-2013 influenza virus vaccine, unspecified formulation Mari Turner APRN.MAINTENANCE PLUMBER Work Phone: [facility] 07-27-2011 pneumococcal polysaccharide vaccine, 23 valent Mari Turner APRN.MAINTENANCE PLUMBER Work Phone: [facility] 07-27-2011 pneumococcal vaccine , unspecified formulation Dr. Kashmir Leong Work Phone: [facility] 04-11-2010 pneumococcal polysaccharide vaccine, 23 valent Mari Turner APRN.MAINTENANCE PLUMBER Work Phone: [facility] Work Phone: Payers Date Payer Category Payer Self-pay [id number] 2014 Medicaid [id number] 2014 Medicare [id number] 2014 Medicare [employer]ICARE [id number] 2014-Present [phone] [address] [place] [address] Medicare [id number] 2014 Medicare (Managed Care) [facility] [place] [facility] [id number] 2014 Unknown [id number] 2013 Medicaid [id number] 1994 Medicare [id number] Unknown Unknown [id number] Unknown [id number] Unknown [id number] Unknown [id number] Unknown [id number] Unknown [id number] Unknown [id number] Unknown [id number] Unknown [id number] Unknown [id number] Unknown [id number] Unknown [id number] Unknown [id number] Social History Date Type Detail Facility Start: 01-22-2022 End: 06-13-2025 Tobacco smoking status NHIS Ex-smoker [facility] Work Phone: Start: 12-25-2009 End: 12-25-2021 History of tobacco use Current smoker [facility] Work Phone: Start: 10-01-2006 End: 12-25-2021 History of tobacco use Cigarette Smoker [facility] Work Phone: Start: 01-22-2022 End: 06-06-2023 Cigarettes smoked current (pack per day) - Reported 0.5 [facility] Start: 01-22-2022 End: 04-22-2025 Tobacco use and exposure Smokeless tobacco non-user [facility] Work Phone: Start: 01-22-2022 End: 04-22-2025 Alcohol intake Current non-drinker of alcohol (finding) [facility] Start: 05-04-2020 Tobacco Comment smokes a cigar ette occasionally [facility] Start: 1960 Sex Assigned At Not on file [facility] Start: 07-25-2020 End: 06-17-2022 Exposure to SARS-CoV-2 (event) Not sure [facility] Start: 1960 Sex Assigned At Female [facility] Start: 12-28-2022 End: 02-05-2024 Tobacco smoking status NHIS Unknown if ever smoked [facility] Start: 11-24-2018 None [facility] Start: 11-24-2018 Spouse/ Signif icant Other [facility] Start: 12-06-2022 End: 06-06-2023 Tobacco use panel [facility] Adult Depression Screening Assessment 0 [facility] Start: 04-22-2022 Gender identity Identifies as female gender (finding) [facility] Start: 04-22-2022 Sexual orientation Heterosexual (kodi mortensen) [facility] Start: 10-01-2006 Tobacco smoking stat us NHIS Occasional tobacco smoker [facility] Goals Date Patient Goal Desired Activity /State Functional Status Date Assessment Result Facility 01-04-2023 Functional status Ambulates;Up ad summer [facility] Work Phone: 02-17-2015 Do you have serious difficulty walking or climbing stairs No 02/17/2015 10:52 AM Yary Henson MA No [facility] 02-17-2015 Do you have difficul ty dressing or bathing No 02/17/2015 10:52 AM Yary Henson MA No [facility] 02-17-2015 Because of a physica l, mental, or emotional condition, do you have difficulty doing errands alone such as visiting a physician's office or shopping No 02/17/2015 10:52 AM Yary Henson MA No [facility] 02-17-2015 Are you deaf, or do you have serious difficulty hearing No 02/17/2015 10:50 AM Yary Henson MA No [facility] 02-17-2015 Are you blind, or do you have serious difficulty seeing, even when wearing glasses Yes 02/17/2015 10:50 AM Yary Henson MA Yes [facility] Mental Status Date Assessment Result Facility 06-13-2025 Cognitive function Voice/Name [facility] Work Phone: 04-15-2023 Cognitive function Voice/Name [facility] Work Phone: 04-02-2023 Cognitive function Follows Commands;Drows y [facility] Work Phone: 02-11-2023 Cognitive function Awake;Alert;A ppropriate; Follows Commands [facility] Work Phone: 02-03-2023 Cognitive function Voice/Name [facility] Work Phone: 01-04-2023 Cognitive function Voice/Name [facility] Work Phone: 02-17-2015 Because of a physica l, mental, or emotional condition, do you have serious difficulty concentrating, remembering, or making decisions No 02/17/2015 10:52 AM EDT Yary Lucero MA No [facility] Clinical Notes 12-08-2014 to 07-26-2025 Note Date & Type Note Facility 07-26-2025 Progress note [facility] 06-13-2025 Discharge summary [facility] 06-13-2025 Radiology Diagnostic study note [facility] Imaging Services [address], [place] [address] Chest PA and Lateral MR#: [id number] Acct: [id number] Name: ISAAC RAHMAN Rep #: [id number] : 1960 F 65 From: Yang Andersen MD PCP: Dr. Andreas Buenrostro MD Status: REG ER Study:Chest PA and Lateral Date of Exam: 06/13/25 Exam# [id number] Ordering Dr: Brown Card MD PROCEDURE: CHEST [...] Lateral IMPRESSION: NO ACUTE FINDINGS. Reading Location: [facility] CC: Dr. Andreas Buenrostro MD; Dr. Mirella Card MD ~ Tipple Oiler: Signed [facility] 06-13-2025 Discharge summary Note Date/Time June 13, 2025 4:29pm [facility] Medical Records Department [address] [place] [address] Emergency Department Summary 06/13/25 MR#: [id number] Acct: [id number] Name: ISAAC RAHMAN Rep #:[id number] : 1960 65 From: Mirella Card MD PCP: Dr. Andreas Buenrostro MD Status:REG ER Location: ED HPI History of Present Illness Chief Complaint: Chest Pain Narrative Narrative: Patient is a 65-year-old female presenting emergency department for chest pain. Patient has past medical history of hypertension, dyslipidemia, back problems and Crohn's disease. Patient states that it started on . States that it "twinges" of chest pain. She states they come [...] from her baseline with her Crohn's disease. [facility] Medical History Panic attack Preoperative cardiovascular examination [...] History of cardiac catheterization H/O wrist surgery [place] teeth extracted Previous back surgery History of [...] Cancelled 60.8 Lymph % (Auto) Cancelled 31.6 Hardeman % (Auto) Cancelled 5.3 Eos % (Auto) [...] Drop Cells Cancelled Ovalocytes Cancelled Stomatocytes Cancelled [place] Bodies Cancelled [place] Cells Cancelled Bite Cells Cancelled Crenated Cell [...] (Auto) Neut % (Auto) Lymph % (Auto) [place] % (Auto) Eos % (Auto) Baso % [...] Target Cells Tear Drop Cells Ovalocytes Stomatocytes [place] Bodies Odin Cells Bite Cells Crenated Cell Acanthocytes (Spur) [...] 13:50 IMPRESSION: NO ACUTE FINDINGS. Reading Location: [facility] Rhythm Strip Rhythm Strip: Sinus Rhythm Rate: [...] worsen or new symptoms develop. Print Language: Maldivian Disposition Disposition: Home, Self Care What to do if you have Problems For any increased pain, shortness of breath, bleeding, nausea or vomiting, chestpain, or any unexpected problems, contact your Primary Care Provider. Call [facility] ([phone]) or report to the closest Emergency Room. Call 911 if necessary. 06/13/25 7407 <Electronically signed by Mirella Card MD> Cosigner Signature (if applicable): CC: Dr. Andreas Buenrostro MD ~ Signed [facility] Work Phone: 1(554) 479-191206-27-2025 NoteHNO ID: [id number] Author: KELIN CONRAD PA-C Service: ? Author Type: Physician Cleaning Handyman Type: Progress Notes Filed: 04/22/2025 10:48 Note Text: Kelin Conrad PA-C Department of Orthopaedics Orthopaedics [address] [facility] [address] Dept: [phone] Dept April 22, 2025 CHIEF COMPLAINT: Pain of the Left Knee and Pain of the Right Knee Bilateral Knee Pain and Swelling/Osteoarthritis: - Onset of increased pain and swelling in bilateral knees x2-3 weeks. - Describes knees as "acting up" and "swollen." - Aggravated by prolonged standing and activity. - Reports a sensation of "something slip" in the left knee when exiting her [...] of C. diff infection. - Follow-up with padder cushion Dr. Bull scheduled for May. Social History: - Significant other has bladder cancer, requiring frequent trips to [facility] for treatment. - Recently lost her mother [...] 6 mg betamethasone acetate-betame (more content not included)...[facility]06-27-2025 History of Present illness Narrative* Kelin Conrad PA-C - 04/22/2025 10:44 AM EDTAssociated Order(s): Large Joint Arthro/Inj: bilateral knee joints Post-Procedure Diagnose(s): Primary osteoarthritis of knees, bilateral Kelin Conrad PA-C Department of Orthopaedics Orthopaedics [facility] [address] [facility] [address] Dept: [phone] Dept April 22, 2025 CHIEF COMPLAINT: Pain of the Left Knee and Pain of the Right Knee Bilateral Knee Pain and Swelling/Osteoarthritis: - Onset of increased pain and swelling in bilateral knees x2-3 weeks. - Describes knees as "acting up" and "swollen." - Aggravated by prolonged standing and activity. - Reports a sensation of "something slip" in the left knee when exiting her [...] of C. diff infection. - Follow-up with padder cushion Dr. Bull scheduled for May. Social History: - Significant other has bladder cancer, requiring frequent trips to [facility] for treatment. - Recently lost her mother [...] these instructions. Informed Consent Consent Obtained: Verbal Cana Protocol A moment to CARE was completed. [...] anxiety) This note was partially generated using Accupal voice recognition system, and there may be some incorrect words, spellings, and punctuation that were not noted in checking the note before saving. Kelin Conrad PA-C * Mari Maxwell MA - 04/22/2025 10:24 AM EDT PT ASSESSMENT - CASTING ROOM Isaac presents [...] Medication (brace and cane) documented in this encounterGeorgetown [facility]06-27-2025 NoteHNO ID: [id number] Author: MARI MAXWELL MA Service: ? Author Type: Guest Relation Officer Type: Progress Notes Filed: 04/22/2025 10:48 Note Text: PT ASSESSMENT - CASTING ROOM Isaac presents for Application of brace. Applied Medium wrap around hinged knee brace to Left knee. Patient electronically signed Moe GUPTA. Patient has been instructed in Care and proper application of brace. Mari Maxwell [facility]06-27-2025 NoteHNO ID: [id number] Author: MARI MAXWELL MA Service: ? Author Type: Guest Relation Officer Type: Progress Notes Filed: 04/22/2025 10:48 Note Text: AMB ROOMING INTAKE FLOWSHEET DATA Risk Screening Do you have concerns about personal safety or safety in the home?: No Pain Pain Level: 4 Pain Location: (bilateral knees) Description: Throbbing Duration Amount of Time: (ongoing) Frequency: Intermittent Intervention/Comfort measure: Other: See comment, Medication (brace and cane) [facility]06-16-2025 Evaluation note* Diagnosis Onset Date Resolution Status Admit Date Anxiety and depression noneactive [facility] 2024 12:52pm [facility] adult [facility] Shoulder blade pain noneactive [facility] t 2024 11:33am [facility] Work Phone: 1(179) 892-177306-16-2025 Evaluation note* Diagnosis Onset Date Resolution Status Admit Date Anxiety and depression noneactive [facility] 2024 12:52pm Chest pain in adult noneactive [facility] 2024 11:33am Shoulder blade pain noneactive [facility] 2024 11:33am Crohns disease chronic May 7:48am Clostridioides difficile infection resolved June 17 7:48am Abdominal pain inactive May 7:48am Exacerbation of Crohn's disease of small intestine inactive 2024 7:48am LINDY on CPAP acute June 8:22am Crohns disease chronic July 26, 2025 8:22am Dyslipidemia chronic July 262024 8:22am Immunization due noneactive Septembe r 2024 8:22am Acquired hypothyroidism noneactive S eptember 2024 8:22am Chronic constipation noneactive Sept ember 2024 8:22am Osteoporosis noneactive July 262024 8:22am Essential hypertension noneactive Se ptember 2024 8:22am Anxiety and depression noneactive Se ptember 2024 8:22am [facility] Work Phone: 1(708) 423-609206-13-2025 Radiology Diagnostic study note [facility] Imaging Services [address] [place], [place] [address] Abdomen Single View MR#: [id number] Acct: [id number] Name: ISAAC RAHMAN Rep #: [id number] : 1960 F 64 From: Melany Neal MD PCP: Dr. Andreas Buenrostro MD Status: REG CLI Study:Abdomen Single View Date of Exam: 04/08/25 Exam# [id number] Ordering Dr: Cristobal Bull DO EXAM: XR Abdomen, 1 View CLINICAL INDICATION: ABDOMINAL PAIN TECHNIQUE: Frontal supine view of the abdomen/pelvis. COMPARISON: No relevant prior studies available. FINDINGS: GASTROINTESTINAL TRACT: Fecal retention in the colon consistent with constipation. No dilation. BONES/JOINTS: Unremarkable. No acute fracture. RAD/Abdomen Single View IMPRESSION: Fecal retention in the colon consistent with constipation. Reading Location: [facility] CC: Dr. Andreas Buenrostro MD; Arthur Bull DO ~ Tipple Oiler: Signed [facility]04-21-2025 Evaluation note* Diagnosis Onset Date Resolution Status Admit Date Crohns disease chronic January 7:31am Clostridioides difficile infection resolved February 14, 2025 7:31am Anxiety and depression noneactive ne 2024 12:52pm Shoulder blade pain noneactive Augus t 2024 11:33am [facility] Work Phone: 1(267) 851-365304-21-2025 Evaluation note* Diagnosis Onset Date Resolution Status Admit Date Crohns disease chronic January 7:31am Clostridioides difficile infection resolved February 14, 2025 7:31am Anxiety and depression noneactive ne 2024 12:52pm Chest pain in adult noneactive Augus t 2024 11:33am Shoulder blade pain noneactive Augus t 2024 11:33am [facility] Work Phone: 1(781) 880-461804-01-2025 Evaluation note* Diagnosis Onset Date Resolution Status Admit Date Crohns disease chronic January 25, 2025 11:20am Dyslipidemia chronic January 25, 025 11:20am Acquired hypothyroidism noneactive A pril 2024 11:20am Chronic constipation noneactive Apri l 2024 11:20am Osteoporosis noneactive January 25, 2 025 11:20am Essential hypertension noneactive Ap ril 2024 11:20am Anxiety and depression noneactive Ap ril 2024 11:20am Crohns disease chronic January 7:31am Clostridioides difficile infection resolved February 14, 2025 7:31am Anxiety and depression noneactive Traci ne 2024 12:52pm [facility] [employer] [facility] Work Phone: 1(659) 681-251804-01-2025 NotePatient Outreach (FAMPWS) ISAAC RAHMAN ([id number]) 1960 F Date Time Provider Department 01/25/25 MARIA DEL CARMEN LEONG FAMPWS During your visit today, we recorded the following information about you: Allergies As of Date: 01/25/2025 Noted Allergy Reaction NICKEL 04/01/2017 2 - Rash Comments: Can't wear "cheap" jewelry PENICILLINS 11/07/2005 5 - Intolerance SEASONAL ALLERGIES 03/12/2016 16 - Unknown TETRACYCLINE 02/14/2014 8 - GI Upset 14 - Other: See Comments Comments: Sensitive to light Date Reviewed: 12/06/2022 Reviewed by: Anahy Menendez LPN - Fully Assessed Visit Diagnosis:Encounter for screening mammogram for breast cancer [Z12.31] Order(s):[facility] SCREENING W KRISTAL [1566314] Order #: [id number] FUTURE Prescriptions as of 02/25/2025 - fluticasone [...] and cartilage, unspecified [M8*02/05/2013 12/16/2014 NO SHOW [766232] 06/07/2014 12/16/2014 Neck pain [M54.2] 12/08/2014 12/16/2014 [...] astigmatism and pre*11/05/2018 Coronary artery disease involving wiyot larry*02/16/2020 Prediabetes [R73.03] 11/23/2012 PTSD (post-traumatic stress disorder) [F43.10] 04/04/2022 History of tobacco use [Z87.891] 04/04/2022 Encounter Status:Closed by YI, PRODUSER on 02/25/25[facility] 04[facility]02[facility] Procedure note [facility]03-22-[address] Lugo [facility] January 15, 2023 12:24am Note Date/Time January 14, 2023 10: 05pm [facility] Medical Records Department [address] [place] [address] Emergency Department Summary 01/14/23 MR#: [id number] Acct: [id number] Name: ISAAC RAHMAN Rep #:[id number] : 1960 62 From: Josef Lugo [...] GI follow-up but is later this week. [facility] Medical History Allergies Back problem Bone fracture [...] (Auto) 71.2 H Lymph % (Auto) 23.9 [place]eman % (Auto) 4.5 Eos % (Auto) 0.0 [...] Andreas Buenrostro MD [Primary Care Provider] - Friend,Arthur, [Med Staff - Active Staff] - Keep Carlos appointment Disposition Disposition: Home, Self Care What to do if you have Problems For any increased pain, shortness of breath, bleeding, nausea or vomiting, chestpain, or any unexpected problems, contact your Primary Care Provider. Call [facility] ([phone]) or report to the closest Emergency Room. Call 911 if necessary. 01/15/23 0007 <Electronically signed by Josef Lugo MD> Cosigner Signature (if applicable): CC: Dr. Andreas Buenrostro MD ~ Signed ADDENDUM by Dr. Josef Lugo MD on 01/15/23 at [address] Bull who was in agreement with this plan. 01/15/23 002<Electronically signed by Josef Lugo MD> Cosigner Signature (if applicable): cc: Dr. Andreas Buenrostro MD ~* Signed [facility] Work Phone: 1(527) 141-851802-10-2023 History of Present illness Narrative* Thao Pineda APRN.MAINTENANCE PLUMBER - 12/06/2022 7:46 AM EST 12/06/2022 Patient [...] the lines of the Mediterranean diet. Thao Pineda APRN.CNP Prescription instructions reviewed with [...] which included preparing to see the patient, [id number] patient care, completing clinical documentation, obtaining and/or reviewing separately obtained history, performing a medically appropriate examination, and counseling and educating the patient/family/caregiver. documented in this encounterGeorgetown Behavioral Hospital01-13-2023 Miscellaneous Notes* Telephone Encounter - Trisha Llanos LPN - 11/08/2022 4:10 PM EST Patient notified. Trisha Llanos LPN * Telephone Encounter - Thao Pineda APRN.CNP - 11/08/2022 2:53 PM EST Please call patient and let her know urine did not show infectious process. Thao Pineda APRN.CNP documented in this encounterGeorgetown Behavioral Hospital01-11-2023 Miscellaneous Notes* Telephone Encounter - Anjelica Wei [...] 150 minutes of exercise per week. Thao Pineda APRN.DENISE documented in this encounterGeorgetown Behavioral Hospital01-09-2023 History of Present illness Narrative* Trisha Llanos LPN - 11/04/2022 11:42 AM EST GI referral, office note and face sheet faxed to Dr. Sneed office at [phone]. Trisha Llanos LPN * Thao Pineda APRN.CNP - 11/04/2022 8:43 AM EST 11/04/2022 Patient presents with: medication review Allergic Reaction: Would like to have some allergy testing SUBJECTIVE: This is a 62 year old that is here today for Above Complaints.. Patient would like referral to another GI specialist here in [place]. Patient frustrated that her colonoscopy she had [...] Lymph 1.00 - 4.00 k/uL 4.12 (H) Hardeman% % 5.8 Abs Hardeman <0.87 k/uL 0.70 Eosin% % 1.5 Abs [...] Lymph 1.00 - 4.00 k/uL 4.12 (H) [place]eman% % 5.8 Abs [place] <0.87 k/uL 0.70 Eosin% % 1.5 Abs [...] will have her see pain management Thao Podlogar, COOKY MACHINE OPERATOR.MAINTENANCE PLUMBER Prescription instructions reviewed with patient as applicable. [...] which included preparing to see the patient, [id number] patient care, completing clinical documentation, obtaining and/or reviewing separately obtained history, performing a medically appropriate examination, counseling and educating the pat ient/family/caregiver, and ordering medications, tests, or procedures. documented in this encounterGeorgetown Behavioral Hospital01-07-2023 Miscellaneous Notes* Telephone Encounter - Mary Muhammad [...] Pineda APRN.CNP * Telephone Encounter - Elen Zimmerman - 11/01/2022 10:37 AM EST Patient has [...] advise. Elen Summers Pss documented in this encounterGeorgetown Behavioral Hospital10-20-2022 Miscellaneous Notes* Telephone Encounter - Hannah Blanca [...] once daily. Please review and advise. Hannah Blanca Pss documented in this encounterGeorgetown Behavioral Hospital09-24-2022 Miscellaneous Notes* Telephone Encounter - Thao Pineda APRN.CNP - 07/20/2022 6:17 PM EDT Sorry this was was not meant for her. Thao Pineda APRN.CNP * Telephone Encounter - Sis Solomon LPN - 07/20/2022 9:03 AM EDT Phoned patient and went over notes from Thao Pineda STEAM TURBINE OPERATOR, patient said she did not know where thiscame from at all. She has not been seen lately and already had nerve conduction test done some timeago. * Telephone Encounter - Thao Pineda APRN.CNP - 07/19/2022 3:31 PM EDT Please call patient and let him know [facility] does not do nerve conduction testing locally. [facility] does so if he wants to complete it through them I can send order. Thao Pineda APRN.DENISE documented in this encounterGeorgetown Behavioral Hospital09-23-2022 Miscellaneous Notes* Telephone Encounter - Esha Saldaña APRN.CNP - 07/19/2022 4:26 PM EDT Patient has not been seen in this office in >2 years. This will need to be filled by her PCP. * Telephone Encounter - Suzi Mauro MA - 07/19/2022 3:52 PM EDT Patient due for appt w/ Dr Castro [facility] 02/16/20 Gloria documented in this encounterGeorgetown Behavioral Hospital09-23-2022 Miscellaneous Notes* Telephone Encounter - Justa Chavez [...] advise. Justa Chavez LPN documented in this encounterGeorgetown Behavioral Hospital08-22-2022 Miscellaneous Notes* Telephone Encounter - Kavitha Vargas [...] as discussed in office. documented in this encounterGeorgetown Behavioral Hospital08-22-2022 History of Present illness Narrative* Maria Del [...] ALLERGIES Allergen Reactions Nickel Rash Can't wear "cheap" jewelry Penicillins Intolerance Seasonal Allergies Unknown Tetracycline [...] Del Carmen Leong MD documented in this encounterGeorgetown Behavioral Hospital08-22-2022 History of Present illness Narrative* Hattie Rosales [...] 17, 2022 10:03 AM documented in this encounterGeorgetown Behavioral Hospital08-20-2022 History of Present illness Narrative* Maria Del [...] ALLERGIES Allergen Reactions Nickel Rash Can't wear "cheap" jewelry Penicillins Intolerance Seasonal Allergies Unknown Tetracycline [...] Del Carmen Leong MD documented in this encounterGeorgetown Behavioral Hospital08-20-2022 Miscellaneous Notes* Telephone Encounter - Sylvia Sanchez [...] advise, Sylvia Sanchez RN documented in this encounterGeorgetown Behavioral Hospital07-14-2022 Miscellaneous Notes* Operative Report - Lulú Bean MD - 05/09/2022 9:43 AM EDT OPERATIVE/PROCEDURE REPORT LOG ID: [id number] Surgery/Procedure Date: Incision/Procedure Start Time: 9:52 AM Incision Close/Procedure End Time: 10:04 AM Surgeon(s)/Proceduralist(s) and Cleaning Handyman(s): Surgeon(s) and Role: * Lulú Bean MD [...] 09, 2022 TIME: 10:14 AM PAGER/CONTACT #: [phone] documented in this encounterGeorgetown Behavioral Hospital07-14-2022 History and physical note * Jenniferrick Hull, GEORGE.MAINTENANCE PLUMBER - 05/09/2022 9:15 AM EDT HISTORY AND [...] Astigmatism and Presbyopia Coronary Artery Disease Involving [place] Coronary Artery of [place] Heart Without Angina Pectoris Prediabetes Ptsd (Post-Traumatic [...] ALLERGIES Allergen Reactions Nickel Rash Can't wear "cheap" jewelry Penicillins Intolerance Seasonal Allergies Unknown Tetracycline GI Upset, Other: See Comments Sensitive to light REVIEW OF SYSTEMS: PAIN ASSESSMENT: Pain Pain Level: 4 Acceptable level: 3 Pain Location: Abdomen Pain Assessment (RN/STUNTMAN): Assessment Description: Cramping Tool: Verbal (Numeric Rating [...] (Src) 97.8 (Temporal) Resp 12 Ht 5' 0" (1.52m) Wt 170 lb (77.1kg) SpO2 98% [...] 8:44 AM PAGER/CONTACT #: documented in this encounterGeorgetown Behavioral Hospital07-11-2022 History of Present illness Narrative* Ema Hanna LPN - 05/06/2022 10:57 AM EDT Patient presents for Twinrix vaccine. Denies any problems at this time. Tolerated injection well. Ema Hanna LPN documented in this encounterGeorgetown Behavioral Hospital06-29-2022 Miscellaneous Notes* Telephone Encounter - Olivia Romo LPN - 04/24/2022 10:44 AM EDT Spoke with pt gave information provided. Pt voices understanding. * Telephone Encounter - Liz Bean APRN.DENISE - 04/24/2022 10:30 AM EDT Macrobid ATB sent to pharmacy ([facility]) on Sunday 04/22. Diflucan also sent at this same time. Have her touch base with me in 1 week if symptoms persist to discuss symptoms and reorder blood work then if needed. Thank you, Liz Bean APRN.DENISE * Telephone Encounter - Justa Chavez LPN [...] give further information. Thank you, Liz Bean APRN.DENISE * Telephone Encounter - Sylvia Sanchez RN - 04/23/2022 2:40 PM EDT Patient calls and states that Liz had ordered lab tests and CT Scan yesterday at her appointment. Patient asking about the results of these tests? Please review and advise, Sylvia Sanchez RN documented in this encounterGeorgetown Behavioral Hospital06-27-2022 History of Present illness Narrative* Liz Bean APRN.DENISE - 04/22/2022 2:54 PM EDT Chief Complaint Patient presents with: Abdominal Pain HPI Isaac Rahman is a 61 year old female who presents here today for Above Complaints.. Isaac is an established pateint of Dr. Dang MD. Isaac is a new patient to me today. Seen in [place] ED 02/25/22 d/t LLQ abd pain. Dx with acute diverticulitis. WBC 18. Started IV ATB and discharged on PO after WBC decreased to 11. Saw Dr. Leong on 03/06 -- Symptoms were improving. Notified Dr. Leong via [employer] on 03/08 that the pain had returned. [...] ALLERGIES Allergen Reactions Nickel Rash Can't wear "cheap" jewelry Penicillins Intolerance Seasonal Allergies Unknown Tetracycline [...] to CT scan. Macrobid sent over. - [place] low residue diet - Follow up in [...] W IVCON 3. Pelvic pain - ICD9: [id number], ICD10: R10.2 Rule out UTI with urine [...] Patient agreeable to treatment plan. Liz Bean APRN.MAINTENANCE PLUMBER [address] [place] [address] documented in this encounterGeorgetown Behavioral Hospital06-27-2022 Miscellaneous Notes* Telephone Encounter - Thao Pineda APRN.CNP - 04/22/2022 11:26 AM EDT Orders for Twinrix immunization placed. Thao Pineda APRN.CNP * Telephone Encounter - Ema Hanna LPN - 04/22/2022 10:47 AM EDT Patient scheduled for nurse visit 05/06/22 to receive Twinrix vaccine. Please place order at this time. Ema Hanna LPN documented in this encounterGeorgetown Behavioral Hospital06-22-2022 Miscellaneous Notes* Telephone Encounter - Justa Chavez LPN - 04/17/2022 8:59 AM EDT Patient phones requesting refills as follows: Pending Prescriptions Disp Refills ATENOLOL 25 MG TABLET 90 tablet 1 Sig: TAKE 1 TABLET BY MOUTH EVERY DAY EDWIN: Yes TANNA-04/04/22 Labs-04/04/22 NOV-10/04/22 Please review and advise. Justa Chavez LPN documented in this encounterGeorgetown Behavioral Hospital06-08-2022 History of Present illness Narrative* RT Ignacio(R) - 04/03/2022 7:30 AM EDT RADIOLOGY SERVICE [...] 730 PATIENT DISCHARGED TO: Ambulatory patient, left [place] department area. A Diagnostic radioactive procedure has taken place, with no further precautions necessary other than routine body substance precautions. More information regarding radiation safety can be found usingthis link: [email or web address] SIGNATURE: YANETH Pierre) PATIENT NAME: Isaac Rahman DATE: April 03, 2022 TIME: 7:36 AM PAGER/CONTACT #: documented in this encounterGeorgetown Behavioral Hospital05-31-2022 Miscellaneous Notes* Addendum Note - Jovana Valladares PA-C - 03/26/2022 8:58 AM EDT Addended by: JOVANA VALLADARES on: 03/26/2022 08:58 AM Modules accepted: Orders documented in this encounterGeorgetown Behavioral Hospital05-16-2022 Instructions* Patient Instructions* Jovana Valladares PA-C - [...] If you do not have a responsible stacker driver (family member or friend) withyou to take you home, your exam cannot be done with sedation and will be cancelled. Please bring a list of all of your current medications, including any Jkku-wqm-Wtfmwss medications with you. Medications If you take [...] your exam. 3 09/2019 documented in this encounterGeorgetown Behavioral Hospital05-16-2022 History of Present illness Narrative* Jovana Valladares PA-C - 03/11/2022 9:51 AM EDT CHIEF COMPLAINT: Patient presents with: Crohns: Diverticulitis, GI moved to [place], needs new GI HPI: Isaac Rahman is a 61 year old female who presents for Crohns (Diverticulitis, GI moved to [place],needs new GI ). Previously seen by Dominga WALKER due to h/o Crohn's, gastritis. Crohn's was dx around 2015, managed with [facility] TID. Recent CT abd [...] lbs unintentionally in the past year. Some "spotty" vision changes, floaters r ecently. CT abd 02/26/2022 IMPRESSION: 1. Acute uncomplicated sigmoid diverticulitis. 2. Terminal ileitis related to known Crohn's disease, improved from prior. Record Review: [facility] / Outside records reviewed. PAST MEDICAL HISTORY Diagnosis Date Cataracts, bilateral Cervical spondylosis with radiculopathy Crohn's disease involving terminal ileum (HCC) 01/21/2017 Dr. De Anda DEPRESSIVE DISORDER NEC 05/30/2006 Diverticulitis DM (diabetes mellitus) ([facility]) 11/23/2012 single episode of A1C>6.5, possibly related [...] ALLERGIES Allergen Reactions Nickel Rash Can't wear "cheap" jewelry Penicillins Intolerance Seasonal Allergies Unknown Tetracycline [...] Examination: BP 162/84 Pulse 59 Ht 5' 0" (1.52m) Wt 177 lb (80.3kg) BMI 34.57 [...] with more than 50% of the total [id number] time of the visit in counseling / coordination of care. I have confirmed and edited as necessary, the PFSH and ROS obtained by others. Jovana Valladares PA-C March 11, 2022 10:24 AM documented in this encounterGe[facility]05[facility]22 Miscellaneous Notes* Telephone Encounter - Thao Pineda APRN.CNP - 03/11/2022 7:57 AM EDT Reviewed. Thao Pineda APRN.CNP * Telephone Encounter - Sis Solomon LPN - 03/08/2022 4:04 PM EDT Patient returned call and went over results, notes from Thao Pineda STEAM TURBINE OPERATOR with understanding. I phoned [facility] and spoke to Pat was [...] medication. Thao Pineda APRN.CNP documented in this encounterGeorgetown [facility]05-11-2022 History of Present illness Narrative* Maria Del Carmen Leong MD - 03/06/2022 10:12 AM EDT Chief Complaint Patient presents with: ED Follow-up: Diverticulitis HPI Isaac Rahman is a 61 year old female who presents here today for ED follow up. Patient evaluated at [place] [facility] on 02/25 for complaint of nausea [...] De Anda is no longer working in [place]. Past medical history, appointments, medications, allergies reviewed. Previous Medical History PAST MEDICAL HISTORY Diagnosis Date Cataracts, bilateral Cervical spondylosis with radiculopathy Crohn's disease involving terminal ileum (HCC) 01/21/2017 Dr. De Anda DEPRESSIVE DISORDER NEC 05/30/2006 DM (diabetes mellitus) ([facility]) 11/23/2012 single episode of A1C>6.5, possibly related [...] ALLERGIES Allergen Reactions Nickel Rash Can't wear "cheap" jewelry Penicillins Intolerance Seasonal Allergies Unknown Simvastatin [...] Abs Lymph 1.00 - 4.00 k/uL 2.49 Hardeman% % 5.9 Abs Hardeman <0.87 k/uL 1.07 (H) Eosin% % 1.3 [...] Del Carmen Leong MD documented in this encounterGe[facility]05-05-2022 Miscellaneous Notes* Telephone Encounter - Soledad Brito [...] to annual mammogram schedule. documented in this encounterGe[facility]05-04-2022 Miscellaneous Notes* Telephone Encounter - Trev Malik [...] Thanks, Thao Pineda APRN.CNP documented in this encounterGe[facility]05-04-2022 History of Present illness Narrative* Beronica Cameron RDMS - 02/27/2022 3:00 PM EDT [...] 27, 2022 3:55 PM documented in this encounterGeorgetown [facility] Hospital03-29-2022 Miscellaneous Notes* Letter - Mammography Coordinator - 01/22/2022 6:45 PM EDT January 22, 2022 PID: [id number] Isaac Rahman [address] [place] [address] Dear Ms. Rahman, Your recent breast imaging exam on 01/22/2022 showed a possible finding that requires additional imaging studies for a complete evaluation. Most such findings are probably benign (not cancer). If you have a healthcare provider who ordered/prescribed your screening mammogram: Please call [phone] or EXT: [phone] to schedule an appointment for your additional [...] and reports are kept on file at [facility] as part of your permanent medical record, and are available for your continuing care. Thank you for allowing us to help in meeting your health care needs. Sincerely, Dr. Palm Interpreting Radiologist [facility] (Additional imaging) documented in this encounterGeorgetown Behavioral Hospital03-29-2022 History of Present illness Narrative* RT Yfn(R) - 01/22/2022 11:10 AM EDT Radiology Service [...] IV DATA: Not applicable SIGNED BY: RT Yfn(R) January 22, 2022 10:28 AM documented in this encounterGeorgetown Behavioral Hospital03-29-2022 History of Present illness Narrative* Mari Turner APRN.MAINTENANCE PLUMBER - 01/22/2022 10:26 AM EDT Isaac is a 61 year old who presents for an annual gynecologic exam without complaints. Continues to have blood in urine as she has had intermittently for many years - plans to follow with urology. 32 yo son recently had a stroke and she is helping him with medical appointments at this time. Postmenopausal: Yes supracervical hysterectomy 2005, LSO 2001 and thinks RSO with hysterectomy HRT use: No. Last Pap: 08/18/2018 normal HPV: 08/14/2018 negative History of abnormal pap: No Last mammogram: today, pending History of abnormal mammogram: No Sexually active: No Hot flashes: No Night sweats: No Vaginal dryness: No OB History T0 L4 SAB1 IAB0 Ectopic0 Multiple0 Live Births0 Comment: 4 Sections Bone Char Kiln Operator History LMP: Hysterectomy Age at Menarche: Age at First : Age at Menopause: Bone Char Kiln Operator History Comments: Sexual Activity: Not Currently; No partner data on record Contraception: No contraception data on record PAST MEDICAL HISTORY Diagnosis Date Cataracts, bilateral Cervical spondylosis with radiculopathy Crohn's disease involving terminal ileum ([facility]) 01/21/2017 Dr. De Anda DEPRESSIVE DISORDER NEC 05/30/2006 DM (diabetes mellitus) ([facility]) 11/23/2012 single episode of A1C>6.5, possibly related [...] medication updated:Yes EXAM: BP 170/80 Ht 5' 0" (1.52m) Wt 180 lb 9.6 oz (81.9kg) [...] external genitalia normal, normal Bartholin's glands, urethra, [place]'s glands, no vulvar lesions, no cervical lesions, [...] year or sooner as needed Mari Turner APRN.DENIES documented in this encounterGeorgetown [facility] Hospital01-10-2019 History of Past illness Narrative* Problem Noted Date Resolved Date Type 2 diabetes mellitus without retinopathy 07/201904/04/2022 Type 2 diabetes mellitus without complication 04/04/2022 Neck pain 12/08/2014 12/16/2014 Cervical radiculitis 12/08/2014 12/16/2014 NO SHOW 06/07/2014 12/16/2014 Pain management 02/02/2014 12/16/2014 Overview: Dr. Kidd in [place]- plans to change to closer pain management. Disorder of bone and cartilage, unspecified 01/2512/16/2014 Overview: Fosamax ~[phone]. DM (diabetes mellitus) 11/23/2012 5 Last Assessment & Plan: Review of labs with slight elevation in blood sugars. Recent hgba1c with excellent control at 6.2. We continued her metformin 500mg daily. Fasting blood sugars are ranging 114 low to 130-155 max. Lumbago 05/30/2006 12/16/2014 Overview: L4,L5 compression fracture. [facility] as of 2012. Depressive disorder, not elsewhere classified 12/16/2014 Allergic rhinitis, cause unspecified 05/30/2006 12/16/2014 Obesity, unspecified 05/30/2006 12/16/2014 Esophageal reflux 12/16/2014 Benign neoplasm of colon 015 Diaphragmatic hernia without mention of obstruction or gangrene 02/21/2014 Hematuria 12/16/2014 Abdominal pain, unspecified site 11/23/2012 Diverticulitis of colon with hemorrhage 02/21/2014 Hypothyroidism 07/11/2015 documented as of this encounter (statuses as of 04/17/2022) [facility] of Past illness Narrative* Problem Noted Date Resolved Date Type 2 diabetes mellitus without retinopathy 07/201904/04/2022 Type 2 diabetes mellitus without complication 04/04/2022 Neck pain 12/08/2014 12/16/2014 Cervical radiculitis 12/08/2014 12/16/2014 NO SHOW 06/07/2014 12/16/2014 Pain management 02/02/2014 12/16/2014 Overview: Dr. Kidd in [place]- plans to change to closer pain management. Disorder of bone and cartilage, unspecified 01/2512/16/2014 Overview: Fosamax ~[phone]. DM (diabetes mellitus) 11/23/2012 5 Last Assessment & Plan: Review of labs with slight elevation in blood sugars. Recent hgba1c with excellent control at 6.2. We continued her metformin 500mg daily. Fasting blood sugars are ranging 114 low to 130-155 max. Lumbago 05/30/2006 12/16/2014 Overview: L4,L5 compression fracture. [facility] as of 2012. Depressive disorder, not elsewhere classified 12/16/2014 Allergic rhinitis, cause unspecified 05/30/2006 12/16/2014 Obesity, unspecified 05/30/2006 12/16/2014 Esophageal reflux 12/16/2014 Benign neoplasm of colon 015 Diaphragmatic hernia without mention of obstruction or gangrene 02/21/2014 Hematuria 12/16/2014 Abdominal pain, unspecified site 11/23/2012 Diverticulitis of colon with hemorrhage 02/21/2014 Hypothyroidism 07/11/2015 documented as of this encounter (statuses as of 04/22/2022) [facility] of [facility] illness Narrative* Problem Noted Date Resolved Date Type 2 diabetes mellitus without retinopathy 07/201904/04/2022 Type 2 diabetes mellitus without complication 04/04/2022 Neck pain 12/08/2014 12/16/2014 Cervical radiculitis 12/08/2014 12/16/2014 NO SHOW 06/07/2014 12/16/2014 Pain management 02/02/2014 12/16/2014 Overview: Dr. Kidd in [place]- plans to change to closer pain management. Disorder of bone and cartilage, unspecified 01/2512/16/2014 Overview: Fosamax ~[phone]. DM (diabetes mellitus) 11/23/2012 5 Last Assessment & Plan: Review of labs with slight elevation in blood sugars. Recent hgba1c with excellent control at 6.2. We continued her metformin 500mg daily. Fasting blood sugars are ranging 114 low to 130-155 max. Lumbago 05/30/2006 12/16/2014 Overview: L4,L5 compression fracture. [facility] as of 2012. Depressive disorder, not elsewhere classified 12/16/2014 Allergic rhinitis, cause unspecified 05/30/2006 12/16/2014 Obesity, unspecified 05/30/2006 12/16/2014 Esophageal reflux 12/16/2014 Benign neoplasm of colon 015 Diaphragmatic hernia without mention of obstruction or gangrene 02/21/2014 Hematuria 12/16/2014 Abdominal pain, unspecified site 11/23/2012 Diverticulitis of colon with hemorrhage 02/21/2014 Hypothyroidism 07/11/2015 documented as of this encounter (statuses as of 04/22/2022) [facility] of [facility] illness Narrative* Problem Noted Date Resolved Date Type 2 diabetes mellitus without retinopathy 07/201904/04/2022 Type 2 diabetes mellitus without complication 04/04/2022 Neck pain 12/08/2014 12/16/2014 Cervical radiculitis 12/08/2014 12/16/2014 NO SHOW 06/07/2014 12/16/2014 Pain management 02/02/2014 12/16/2014 Overview: Dr. Kidd in [place]- plans to change to closer pain management. Disorder of bone and cartilage, unspecified 01/2512/16/2014 Overview: Fosamax ~[phone]. DM (diabetes mellitus) 11/23/2012 5 Last Assessment & Plan: Review of labs with slight elevation in blood sugars. Recent hgba1c with excellent control at 6.2. We continued her metformin 500mg daily. Fasting blood sugars are ranging 114 low to 130-155 max. Lumbago 05/30/2006 12/16/2014 Overview: L4,L5 compression fracture. [facility] as of 2012. Depressive disorder, not elsewhere classified 12/16/2014 Allergic rhinitis, cause unspecified 05/30/2006 12/16/2014 Obesity, unspecified 05/30/2006 12/16/2014 Esophageal reflux 12/16/2014 Benign neoplasm of colon 015 Diaphragmatic hernia without mention of obstruction or gangrene 02/21/2014 Hematuria 12/16/2014 Abdominal pain, unspecified site 11/23/2012 Diverticulitis of colon with hemorrhage 02/21/2014 Hypothyroidism 07/11/2015 documented as of this encounter (statuses as of 04/24/2022) [facility] Narrative* Problem Noted Date Resolved Date Type 2 diabetes mellitus without retinopathy 07/201904/04/2022 Type 2 diabetes mellitus without complication 04/04/2022 Neck pain 12/08/2014 12/16/2014 Cervical radiculitis 12/08/2014 12/16/2014 NO SHOW 06/07/2014 12/16/2014 Pain management 02/02/2014 12/16/2014 Overview: Dr. Kidd in [place]- plans to change to closer pain management. Disorder of bone and cartilage, unspecified 01/2512/16/2014 Overview: Fosamax ~[phone]. DM (diabetes mellitus) 11/23/2012 5 Last Assessment & Plan: Review of labs with slight elevation in blood sugars. Recent hgba1c with excellent control at 6.2. We continued her metformin 500mg daily. Fasting blood sugars are ranging 114 low to 130-155 max. Lumbago 05/30/2006 12/16/2014 Overview: L4,L5 compression fracture. [facility] as of 2012. Depressive disorder, not elsewhere classified 12/16/2014 Allergic rhinitis, cause unspecified 05/30/2006 12/16/2014 Obesity, unspecified 05/30/2006 12/16/2014 Esophageal reflux 12/16/2014 Benign neoplasm of colon 015 Diaphragmatic hernia without mention of obstruction or gangrene 02/21/2014 Hematuria 12/16/2014 Abdominal pain, unspecified site 11/23/2012 Diverticulitis of colon with hemorrhage 02/21/2014 Hypothyroidism 07/11/2015 documented as of this encounter (statuses as of 04/24/2022) [facility] Narrative* Problem Noted Date Resolved Date Type 2 diabetes mellitus without retinopathy 07/201904/04/2022 Type 2 diabetes mellitus without complication 04/04/2022 Neck pain 12/08/2014 12/16/2014 Cervical radiculitis 12/08/2014 12/16/2014 NO SHOW 06/07/2014 12/16/2014 Pain management 02/02/2014 12/16/2014 Overview: Dr. Kidd in [place]- plans to change to closer pain management. Disorder of bone and cartilage, unspecified 01/2512/16/2014 Overview: Fosamax ~[phone]. DM (diabetes mellitus) 11/23/2012 5 Last Assessment & Plan: Review of labs with slight elevation in blood sugars. Recent hgba1c with excellent control at 6.2. We continued her metformin 500mg daily. Fasting blood sugars are ranging 114 low to 130-155 max. Lumbago 05/30/2006 12/16/2014 Overview: L4,L5 compression fracture. [place] [facility] as of 2012. Depressive disorder, not elsewhere classified 12/16/2014 Allergic rhinitis, cause unspecified 05/30/2006 12/16/2014 Obesity, unspecified 05/30/2006 12/16/2014 Esophageal reflux 12/16/2014 Benign neoplasm of colon 015 Diaphragmatic hernia without mention of obstruction or gangrene 02/21/2014 Hematuria 12/16/2014 Abdominal pain, unspecified site 11/23/2012 Diverticulitis of colon with hemorrhage 02/21/2014 Hypothyroidism 07/11/2015 documented as of this encounter (statuses as of 04/24/2022) [facility] Narrative* Problem Noted Date Resolved Date Type 2 diabetes mellitus without retinopathy 07/201904/04/2022 Type 2 diabetes mellitus without complication 04/04/2022 Neck pain 12/08/2014 12/16/2014 Cervical radiculitis 12/08/2014 12/16/2014 NO SHOW 06/07/2014 12/16/2014 Pain management 02/02/2014 12/16/2014 Overview: Dr. Kidd in [place]- plans to change to closer pain management. Disorder of bone and cartilage, unspecified 01/2512/16/2014 Overview: Fosamax ~[phone]. DM (diabetes mellitus) 11/23/2012 5 Last Assessment & Plan: Review of labs with slight elevation in blood sugars. Recent hgba1c with excellent control at 6.2. We continued her metformin 500mg daily. Fasting blood sugars are ranging 114 low to 130-155 max. Lumbago 05/30/2006 12/16/2014 Overview: L4,L5 compression fracture. [place] [facility] [place] [facility] as of 2012. Depressive disorder, not elsewhere classified 12/16/2014 Allergic rhinitis, cause unspecified 05/30/2006 12/16/2014 Obesity, unspecified 05/30/2006 12/16/2014 Esophageal reflux 12/16/2014 Benign neoplasm of colon 015 Diaphragmatic hernia without mention of obstruction or gangrene 02/21/2014 Hematuria 12/16/2014 Abdominal pain, unspecified site 11/23/2012 Diverticulitis of colon with hemorrhage 02/21/2014 Hypothyroidism 07/11/2015 documented as of this encounter (statuses as of 05/06/2022) [facility] Narrative* Problem Noted Date Resolved Date Type 2 diabetes mellitus without retinopathy 07/201904/04/2022 Type 2 diabetes mellitus without complication 04/04/2022 Neck pain 12/08/2014 12/16/2014 Cervical radiculitis 12/08/2014 12/16/2014 NO SHOW 06/07/2014 12/16/2014 Pain management 02/02/2014 12/16/2014 Overview: Dr. Kidd in [place]- plans to change to closer pain management. Disorder of bone and cartilage, unspecified 01/2512/16/2014 Overview: Fosamax ~[phone]. DM (diabetes mellitus) 11/23/2012 5 Last Assessment & Plan: Review of labs with slight elevation in blood sugars. Recent hgba1c with excellent control at 6.2. We continued her metformin 500mg daily. Fasting blood sugars are ranging 114 low to 130-155 max. Lumbago 05/30/2006 12/16/2014 Overview: L4,L5 compression fracture. [facility] [place] [facility] as of 2012. Depressive disorder, not elsewhere classified 12/16/2014 Allergic rhinitis, cause unspecified 05/30/2006 12/16/2014 Obesity, unspecified 05/30/2006 12/16/2014 Esophageal reflux 12/16/2014 Benign neoplasm of colon 015 Diaphragmatic hernia without mention of obstruction or gangrene 02/21/2014 Hematuria 12/16/2014 Abdominal pain, unspecified site 11/23/2012 Diverticulitis of colon with hemorrhage 02/21/2014 Hypothyroidism 07/11/2015 documented as of this encounter (statuses as of 05/10/2022) [facility] Narrative* Problem Noted Date Resolved Date Type 2 diabetes mellitus without retinopathy 07/201904/04/2022 Type 2 diabetes mellitus without complication 04/04/2022 Neck pain 12/08/2014 12/16/2014 Cervical radiculitis 12/08/2014 12/16/2014 NO SHOW 06/07/2014 12/16/2014 Pain management 02/02/2014 12/16/2014 Overview: Dr. Kidd in [place]- plans to change to closer pain management. Disorder of bone and cartilage, unspecified 01/2512/16/2014 Overview: Fosamax ~[phone]. DM (diabetes mellitus) 11/23/2012 5 Last Assessment & Plan: Review of labs with slight elevation in blood sugars. Recent hgba1c with excellent control at 6.2. We continued her metformin 500mg daily. Fasting blood sugars are ranging 114 low to 130-155 max. Lumbago 05/30/2006 12/16/2014 Overview: L4,L5 compression fracture. [facility] as of 2012. Depressive disorder, not elsewhere classified 12/16/2014 Allergic rhinitis, cause unspecified 05/30/2006 12/16/2014 Obesity, unspecified 05/30/2006 12/16/2014 Esophageal reflux 12/16/2014 Benign neoplasm of colon 015 Diaphragmatic hernia without mention of obstruction or gangrene 02/21/2014 Hematuria 12/16/2014 Abdominal pain, unspecified site 11/23/2012 Diverticulitis of colon with hemorrhage 02/21/2014 Hypothyroidism 07/11/2015 documented as of this encounter (statuses as of 05/17/2022) [facility] Narrative* Problem Noted Date Resolved Date Type 2 diabetes mellitus without retinopathy 07/201904/04/2022 Type 2 diabetes mellitus without complication 04/04/2022 Neck pain 12/08/2014 12/16/2014 Cervical radiculitis 12/08/2014 12/16/2014 NO SHOW 06/07/2014 12/16/2014 Pain management 02/02/2014 12/16/2014 Overview: Dr. Kidd in [place]- plans to change to closer pain management. Disorder of bone and cartilage, unspecified 01/2512/16/2014 Overview: Fosamax ~[phone]. DM (diabetes mellitus) 11/23/2012 5 Last Assessment & Plan: Review of labs with slight elevation in blood sugars. Recent hgba1c with excellent control at 6.2. We continued her metformin 500mg daily. Fasting blood sugars are ranging 114 low to 130-155 max. Lumbago 05/30/2006 12/16/2014 Overview: L4,L5 compression fracture. [facility] as of 2012. Depressive disorder, not elsewhere classified 12/16/2014 Allergic rhinitis, cause unspecified 05/30/2006 12/16/2014 Obesity, unspecified 05/30/2006 12/16/2014 Esophageal reflux 12/16/2014 Benign neoplasm of colon 015 Diaphragmatic hernia without mention of obstruction or gangrene 02/21/2014 Hematuria 12/16/2014 Abdominal pain, unspecified site 11/23/2012 Diverticulitis of colon with hemorrhage 02/21/2014 Hypothyroidism 07/11/2015 documented as of this encounter (statuses as of 06/15/2022) [facility] Narrative* Problem Noted Date Resolved Date Type 2 diabetes mellitus without retinopathy 07/201904/04/2022 Type 2 diabetes mellitus without complication 04/04/2022 Neck pain 12/08/2014 12/16/2014 Cervical radiculitis 12/08/2014 12/16/2014 NO SHOW 06/07/2014 12/16/2014 Pain management 02/02/2014 12/16/2014 Overview: Dr. Kidd in [place]- plans to change to closer pain management. Disorder of bone and cartilage, unspecified 01/2512/16/2014 Overview: Fosamax ~[phone]. DM (diabetes mellitus) 11/23/2012 5 Last Assessment & Plan: Review of labs with slight elevation in blood sugars. Recent hgba1c with excellent control at 6.2. We continued her metformin 500mg daily. Fasting blood sugars are ranging 114 low to 130-155 max. Lumbago 05/30/2006 12/16/2014 Overview: L4,L5 compression fracture. [facility] as of 2012. Depressive disorder, not elsewhere classified 12/16/2014 Allergic rhinitis, cause unspecified 05/30/2006 12/16/2014 Obesity, unspecified 05/30/2006 12/16/2014 Esophageal reflux 12/16/2014 Benign neoplasm of colon 015 Diaphragmatic hernia without mention of obstruction or gangrene 02/21/2014 Hematuria 12/16/2014 Abdominal pain, unspecified site 11/23/2012 Diverticulitis of colon with hemorrhage 02/21/2014 Hypothyroidism 07/11/2015 documented as of this encounter (statuses as of 06/17/2022) [facility] Narrative* Problem Noted Date Resolved Date Type 2 diabetes mellitus without retinopathy 07/201904/04/2022 Type 2 diabetes mellitus without complication 04/04/2022 Neck pain 12/08/2014 12/16/2014 Cervical radiculitis 12/08/2014 12/16/2014 NO SHOW 06/07/2014 12/16/2014 Pain management 02/02/2014 12/16/2014 Overview: Dr. Kidd in [place]- plans to change to closer pain management. Disorder of bone and cartilage, unspecified 01/2512/16/2014 Overview: Fosamax ~[phone]. DM (diabetes mellitus) 11/23/2012 5 Last Assessment & Plan: Review of labs with slight elevation in blood sugars. Recent hgba1c with excellent control at 6.2. We continued her metformin 500mg daily. Fasting blood sugars are ranging 114 low to 130-155 max. Lumbago 05/30/2006 12/16/2014 Overview: L4,L5 compression fracture. [facility] as of 2012. Depressive disorder, not elsewhere classified 12/16/2014 Allergic rhinitis, cause unspecified 05/30/2006 12/16/2014 Obesity, unspecified 05/30/2006 12/16/2014 Esophageal reflux 12/16/2014 Benign neoplasm of colon 015 Diaphragmatic hernia without mention of obstruction or gangrene 02/21/2014 Hematuria 12/16/2014 Abdominal pain, unspecified site 11/23/2012 Diverticulitis of colon with hemorrhage 02/21/2014 Hypothyroidism 07/11/2015 documented as of this encounter (statuses as of 06/17/2022) [facility] Narrative* Problem Noted Date Resolved Date Type 2 diabetes mellitus without retinopathy 07/201904/04/2022 Type 2 diabetes mellitus without complication 04/04/2022 Neck pain 12/08/2014 12/16/2014 Cervical radiculitis 12/08/2014 12/16/2014 NO SHOW 06/07/2014 12/16/2014 Pain management 02/02/2014 12/16/2014 Overview: Dr. Kidd in [place]- plans to change to closer pain management. Disorder of bone and cartilage, unspecified 01/2512/16/2014 Overview: Fosamax ~[id number]. DM (diabetes mellitus) 11/23/2012 5 Last Assessment & Plan: Review of labs with slight elevation in blood sugars. Recent hgba1c with excellent control at 6.2. We continued her metformin 500mg daily. Fasting blood sugars are ranging 114 low to 130-155 max. Lumbago 05/30/2006 12/16/2014 Overview: L4,L5 compression fracture. [facility] as of 2012. Depressive disorder, not elsewhere classified 12/16/2014 Allergic rhinitis, cause unspecified 05/30/2006 12/16/2014 Obesity, unspecified 05/30/2006 12/16/2014 Esophageal reflux 12/16/2014 Benign neoplasm of colon 015 Diaphragmatic hernia without mention of obstruction or gangrene 02/21/2014 Hematuria 12/16/2014 Abdominal pain, unspecified site 11/23/2012 Diverticulitis of colon with hemorrhage 02/21/2014 Hypothyroidism 07/11/2015 documented as of this encounter (statuses as of 06/18/2022) [facility] History of Past illness Narrative* Problem Noted Date Resolved Date Type 2 diabetes mellitus without retinopathy 07/201904/04/2022 Type 2 diabetes mellitus without complication 04/04/2022 Neck pain 12/08/2014 12/16/2014 Cervical radiculitis 12/08/2014 12/16/2014 NO SHOW 06/07/2014 12/16/2014 Pain management 02/02/2014 12/16/2014 Overview: Dr. Kidd in [place]- plans to change to closer pain management. Disorder of bone and cartilage, unspecified 01/2512/16/2014 Overview: Fosamax ~[id number]. DM (diabetes mellitus) 11/23/2012 5 Last Assessment & Plan: Review of labs with slight elevation in blood sugars. Recent hgba1c with excellent control at 6.2. We continued her metformin 500mg daily. Fasting blood sugars are ranging 114 low to 130-155 max. Lumbago 05/30/2006 12/16/2014 Overview: L4,L5 compression fracture. [facility] as of 2012. Depressive disorder, not elsewhere classified 12/16/2014 Allergic rhinitis, cause unspecified 05/30/2006 12/16/2014 Obesity, unspecified 05/30/2006 12/16/2014 Esophageal reflux 12/16/2014 Benign neoplasm of colon 015 Diaphragmatic hernia without mention of obstruction or gangrene 02/21/2014 Hematuria 12/16/2014 Abdominal pain, unspecified site 11/23/2012 Diverticulitis of colon with hemorrhage 02/21/2014 Hypothyroidism 07/11/2015 documented as of this encounter (statuses as of 06/18/2022) [facility] History of Past illness Narrative* Problem Noted Date Resolved Date Type 2 diabetes mellitus without retinopathy 07/201904/04/2022 Type 2 diabetes mellitus without complication 04/04/2022 Neck pain 12/08/2014 12/16/2014 Cervical radiculitis 12/08/2014 12/16/2014 NO SHOW 06/07/2014 12/16/2014 Pain management 02/02/2014 12/16/2014 Overview: Dr. Kidd in [place]- plans to change to closer pain management. Disorder of bone and cartilage, unspecified 01/2512/16/2014 Overview: Fosamax ~[id number]. DM (diabetes mellitus) 11/23/2012 5 Last Assessment & Plan: Review of labs with slight elevation in blood sugars. Recent hgba1c with excellent control at 6.2. We continued her metformin 500mg daily. Fasting blood sugars are ranging 114 low to 130-155 max. Lumbago 05/30/2006 12/16/2014 Overview: L4,L5 compression fracture. [facility] as of 2012. Depressive disorder, not elsewhere classified 12/16/2014 Allergic rhinitis, cause unspecified 05/30/2006 12/16/2014 Obesity, unspecified 05/30/2006 12/16/2014 Esophageal reflux 12/16/2014 Benign neoplasm of colon 015 Diaphragmatic hernia without mention of obstruction or gangrene 02/21/2014 Hematuria 12/16/2014 Abdominal pain, unspecified site 11/23/2012 Diverticulitis of colon with hemorrhage 02/21/2014 Hypothyroidism 07/11/2015 documented as of this encounter (statuses as of 07/19/2022) [facility] History of Past illness Narrative* Problem Noted Date Resolved Date Type 2 diabetes mellitus without retinopathy 07/201904/04/2022 Type 2 diabetes mellitus without complication 04/04/2022 Neck pain 12/08/2014 12/16/2014 Cervical radiculitis 12/08/2014 12/16/2014 NO SHOW 06/07/2014 12/16/2014 Pain management 02/02/2014 12/16/2014 Overview: Dr. Kidd in [place]- plans to change to closer pain management. Disorder of bone and cartilage, unspecified 01/2512/16/2014 Overview: Fosamax ~[id number]. DM (diabetes mellitus) 11/23/2012 5 Last Assessment & Plan: Review of labs with slight elevation in blood sugars. Recent hgba1c with excellent control at 6.2. We continued her metformin 500mg daily. Fasting blood sugars are ranging 114 low to 130-155 max. Lumbago 05/30/2006 12/16/2014 Overview: L4,L5 compression fracture. [facility] as of 2012. Depressive disorder, not elsewhere classified 12/16/2014 Allergic rhinitis, cause unspecified 05/30/2006 12/16/2014 Obesity, unspecified 05/30/2006 12/16/2014 Esophageal reflux 12/16/2014 Benign neoplasm of colon 015 Diaphragmatic hernia without mention of obstruction or gangrene 02/21/2014 Hematuria 12/16/2014 Abdominal pain, unspecified site 11/23/2012 Diverticulitis of colon with hemorrhage 02/21/2014 Hypothyroidism 07/11/2015 documented as of this encounter (statuses as of 07/19/2022) [facility] History of Past illness Narrative* Problem Noted Date Resolved Date Type 2 diabetes mellitus without retinopathy 07/201904/04/2022 Type 2 diabetes mellitus without complication 04/04/2022 Neck pain 12/08/2014 12/16/2014 Cervical radiculitis 12/08/2014 12/16/2014 NO SHOW 06/07/2014 12/16/2014 Pain management 02/02/2014 12/16/2014 Overview: Dr. Kidd in [place]- plans to change to closer pain management. Disorder of bone and cartilage, unspecified 01/2512/16/2014 Overview: Fosamax ~[id number]. DM (diabetes mellitus) 11/23/2012 5 Last Assessment & Plan: Review of labs with slight elevation in blood sugars. Recent hgba1c with excellent control at 6.2. We continued her metformin 500mg daily. Fasting blood sugars are ranging 114 low to 130-155 max. Lumbago 05/30/2006 12/16/2014 Overview: L4,L5 compression fracture. [facility] as of 2012. Depressive disorder, not elsewhere classified 12/16/2014 Allergic rhinitis, cause unspecified 05/30/2006 12/16/2014 Obesity, unspecified 05/30/2006 12/16/2014 Esophageal reflux 12/16/2014 Benign neoplasm of colon 015 Diaphragmatic hernia without mention of obstruction or gangrene 02/21/2014 Hematuria 12/16/2014 Abdominal pain, unspecified site 11/23/2012 Diverticulitis of colon with hemorrhage 02/21/2014 Hypothyroidism 07/11/2015 documented as of this encounter (statuses as of 07/26/2022) [facility] History of Past illness Narrative* Problem Noted Date Resolved Date Type 2 diabetes mellitus without retinopathy 07/201904/04/2022 Type 2 diabetes mellitus without complication 04/04/2022 Neck pain 12/08/2014 12/16/2014 Cervical radiculitis 12/08/2014 12/16/2014 NO SHOW 06/07/2014 12/16/2014 Pain management 02/02/2014 12/16/2014 Overview: Dr. Kidd in [place]- plans to change to closer pain management. Disorder of bone and cartilage, unspecified 01/2512/16/2014 Overview: Fosamax ~[id number]. DM (diabetes mellitus) 11/23/2012 5 Last Assessment & Plan: Review of labs with slight elevation in blood sugars. Recent hgba1c with excellent control at 6.2. We continued her metformin 500mg daily. Fasting blood sugars are ranging 114 low to 130-155 max. Lumbago 05/30/2006 12/16/2014 Overview: L4,L5 compression fracture. [facility] as of 2012. Depressive disorder, not elsewhere classified 12/16/2014 Allergic rhinitis, cause unspecified 05/30/2006 12/16/2014 Obesity, unspecified 05/30/2006 12/16/2014 Esophageal reflux 12/16/2014 Benign neoplasm of colon 015 Diaphragmatic hernia without mention of obstruction or gangrene 02/21/2014 Hematuria 12/16/2014 Abdominal pain, unspecified site 11/23/2012 Diverticulitis of colon with hemorrhage 02/21/2014 Hypothyroidism 07/11/2015 documented as of this encounter (statuses as of 08/15/2022) [facility] History of Past illness Narrative* Problem Noted Date Resolved Date Type 2 diabetes mellitus without retinopathy 07/201904/04/2022 Type 2 diabetes mellitus without complication 04/04/2022 Neck pain 12/08/2014 12/16/2014 Cervical radiculitis 12/08/2014 12/16/2014 NO SHOW 06/07/2014 12/16/2014 Pain management 02/02/2014 12/16/2014 Overview: Dr. Kidd in [place]- plans to change to closer pain management. Disorder of bone and cartilage, unspecified 01/2512/16/2014 Overview: Fosamax ~[id number]. DM (diabetes mellitus) 11/23/2012 5 Last Assessment & Plan: Review of labs with slight elevation in blood sugars. Recent hgba1c with excellent control at 6.2. We continued her metformin 500mg daily. Fasting blood sugars are ranging 114 low to 130-155 max. Lumbago 05/30/2006 12/16/2014 Overview: L4,L5 compression fracture. [facility] as of 2012. Depressive disorder, not elsewhere classified 12/16/2014 Allergic rhinitis, cause unspecified 05/30/2006 12/16/2014 Obesity, unspecified 05/30/2006 12/16/2014 Esophageal reflux 12/16/2014 Benign neoplasm of colon 015 Diaphragmatic hernia without mention of obstruction or gangrene 02/21/2014 Hematuria 12/16/2014 Abdominal pain, unspecified site 11/23/2012 Diverticulitis of colon with hemorrhage 02/21/2014 Hypothyroidism 07/11/2015 documented as of this encounter (statuses as of 11/02/2022) [facility] History of Past illness Narrative* Problem Noted Date Resolved Date Type 2 diabetes mellitus without retinopathy 07/201904/04/2022 Type 2 diabetes mellitus without complication 04/04/2022 Neck pain 12/08/2014 12/16/2014 Cervical radiculitis 12/08/2014 12/16/2014 NO SHOW 06/07/2014 12/16/2014 Pain management 02/02/2014 12/16/2014 Overview: Dr. Kidd in [place]- plans to change to closer pain management. Disorder of bone and cartilage, unspecified 01/2512/16/2014 Overview: Fosamax ~[id number]. DM (diabetes mellitus) 11/23/2012 5 Last Assessment & Plan: Review of labs with slight elevation in blood sugars. Recent hgba1c with excellent control at 6.2. We continued her metformin 500mg daily. Fasting blood sugars are ranging 114 low to 130-155 max. Lumbago 05/30/2006 12/16/2014 Overview: L4,L5 compression fracture. [facility] as of 2012. Depressive disorder, not elsewhere classified 12/16/2014 Allergic rhinitis, cause unspecified 05/30/2006 12/16/2014 Obesity, unspecified 05/30/2006 12/16/2014 Esophageal reflux 12/16/2014 Benign neoplasm of colon 015 Diaphragmatic hernia without mention of obstruction or gangrene 02/21/2014 Hematuria 12/16/2014 Abdominal pain, unspecified site 11/23/2012 Diverticulitis of colon with hemorrhage 02/21/2014 Hypothyroidism 07/11/2015 documented as of this encounter (statuses as of 11/04/2022) [facility] History of Past illness Narrative* Problem Noted Date Resolved Date Type 2 diabetes mellitus without retinopathy 07/201904/04/2022 Type 2 diabetes mellitus without complication 04/04/2022 Neck pain 12/08/2014 12/16/2014 Cervical radiculitis 12/08/2014 12/16/2014 NO SHOW 06/07/2014 12/16/2014 Pain management 02/02/2014 12/16/2014 Overview: Dr. Kidd in [place]- plans to change to closer pain management. Disorder of bone and cartilage, unspecified 01/2512/16/2014 Overview: Fosamax ~[id number]. DM (diabetes mellitus) 11/23/2012 5 Last Assessment & Plan: Review of labs with slight elevation in blood sugars. Recent hgba1c with excellent control at 6.2. We continued her metformin 500mg daily. Fasting blood sugars are ranging 114 low to 130-155 max. Lumbago 05/30/2006 12/16/2014 Overview: L4,L5 compression fracture. [facility] as of 2012. Depressive disorder, not elsewhere classified 12/16/2014 Allergic rhinitis, cause unspecified 05/30/2006 12/16/2014 Obesity, unspecified 05/30/2006 12/16/2014 Esophageal reflux 12/16/2014 Benign neoplasm of colon 015 Diaphragmatic hernia without mention of obstruction or gangrene 02/21/2014 Hematuria 12/16/2014 Abdominal pain, unspecified site 11/23/2012 Diverticulitis of colon with hemorrhage 02/21/2014 Hypothyroidism 07/11/2015 documented as of this encounter (statuses as of 11/06/2022) [facility] History of Past illness Narrative* Problem Noted Date Resolved Date Type 2 diabetes mellitus without retinopathy 07/201904/04/2022 Type 2 diabetes mellitus without complication 04/04/2022 Neck pain 12/08/2014 12/16/2014 Cervical radiculitis 12/08/2014 12/16/2014 NO SHOW 06/07/2014 12/16/2014 Pain management 02/02/2014 12/16/2014 Overview: Dr. Kidd in [place]- plans to change to closer pain management. Disorder of bone and cartilage, unspecified 01/2512/16/2014 Overview: Fosamax ~[id number]. DM (diabetes mellitus) 11/23/2012 5 Last Assessment & Plan: Review of labs with slight elevation in blood sugars. Recent hgba1c with excellent control at 6.2. We continued her metformin 500mg daily. Fasting blood sugars are ranging 114 low to 130-155 max. Lumbago 05/30/2006 12/16/2014 Overview: L4,L5 compression fracture. [facility] as of 2012. Depressive disorder, not elsewhere classified 12/16/2014 Allergic rhinitis, cause unspecified 05/30/2006 12/16/2014 Obesity, unspecified 05/30/2006 12/16/2014 Esophageal reflux 12/16/2014 Benign neoplasm of colon 015 Diaphragmatic hernia without mention of obstruction or gangrene 02/21/2014 Hematuria 12/16/2014 Abdominal pain, unspecified site 11/23/2012 Diverticulitis of colon with hemorrhage 02/21/2014 Hypothyroidism 07/11/2015 documented as of this encounter (statuses as of 11/11/2022) [facility] History of Past illness Narrative* Problem Noted Date Resolved Date Type 2 diabetes mellitus without retinopathy 07/201904/04/2022 Type 2 diabetes mellitus without complication 04/04/2022 Neck pain 12/08/2014 12/16/2014 Cervical radiculitis 12/08/2014 12/16/2014 NO SHOW 06/07/2014 12/16/2014 Pain management 02/02/2014 12/16/2014 Overview: Dr. Kidd in [place]- plans to change to closer pain management. Disorder of bone and cartilage, unspecified 01/2512/16/2014 Overview: Fosamax ~[id number]. DM (diabetes mellitus) 11/23/2012 5 Last Assessment & Plan: Review of labs with slight elevation in blood sugars. Recent hgba1c with excellent control at 6.2. We continued her metformin 500mg daily. Fasting blood sugars are ranging 114 low to 130-155 max. Lumbago 05/30/2006 12/16/2014 Overview: L4,L5 compression fracture. [facility] as of 2012. Depressive disorder, not elsewhere classified 12/16/2014 Allergic rhinitis, cause unspecified 05/30/2006 12/16/2014 Obesity, unspecified 05/30/2006 12/16/2014 Esophageal reflux 12/16/2014 Benign neoplasm of colon 015 Diaphragmatic hernia without mention of obstruction or gangrene 02/21/2014 Hematuria 12/16/2014 Abdominal pain, unspecified site 11/23/2012 Diverticulitis of colon with hemorrhage 02/21/2014 Hypothyroidism 07/11/2015 documented as of this encounter (statuses as of 12/06/2022) [facility] History of Past illness Narrative* Problem Noted Date Resolved Date Type 2 diabetes mellitus without retinopathy 07/201904/04/2022 Type 2 diabetes mellitus without complication 04/04/2022 Neck pain 12/08/2014 12/16/2014 Cervical radiculitis 12/08/2014 12/16/2014 NO SHOW 06/07/2014 12/16/2014 Pain management 02/02/2014 12/16/2014 Overview: Dr. Kidd in [place]- plans to change to closer pain management. Disorder of bone and cartilage, unspecified 01/2512/16/2014 Overview: Fosamax ~[id number]. DM (diabetes mellitus) 11/23/2012 5 Last Assessment & Plan: Review of labs with slight elevation in blood sugars. Recent hgba1c with excellent control at 6.2. We continued her metformin 500mg daily. Fasting blood sugars are ranging 114 low to 130-155 max. Lumbago 05/30/2006 12/16/2014 Overview: L4,L5 compression fracture. [facility] as of 2012. Depressive disorder, not elsewhere classified 12/16/2014 Allergic rhinitis, cause unspecified 05/30/2006 12/16/2014 Obesity, unspecified 05/30/2006 12/16/2014 Esophageal reflux 12/16/2014 Benign neoplasm of colon 015 Diaphragmatic hernia without mention of obstruction or gangrene 02/21/2014 Hematuria 12/16/2014 Abdominal pain, unspecified site 11/23/2012 Diverticulitis of colon with hemorrhage 02/21/2014 Hypothyroidism 07/11/2015 documented as of this encounter (statuses as of 03/10/2023) [facility] History of Past illness Narrative* Problem Noted Date Resolved Date Neck pain 12/08/2014 12/16/2014 Cervical radiculitis 12/08/2014 12/16/2014 NO SHOW 06/07/2014 12/16/2014 Pain management 02/02/2014 12/16/2014 Overview: Dr. Kidd in [place]- plans to change to closer pain management. Disorder of bone and cartilage, unspecified 01/2512/16/2014 Overview: Fosamax ~[id number]. DM (diabetes mellitus) 11/23/2012 5 Last Assessment & Plan: Review of labs with slight elevation in blood sugars. Recent hgba1c with excellent control at 6.2. We continued her metformin 500mg daily. Fasting blood sugars are ranging 114 low to 130-155 max. Lumbago 05/30/2006 12/16/2014 Overview: L4,L5 compression fracture. [facility] as of 2012. Depressive disorder, not elsewhere classified 12/16/2014 Allergic rhinitis, cause unspecified 05/30/2006 12/16/2014 Obesity, unspecified 05/30/2006 12/16/2014 Esophageal reflux 12/16/2014 Benign neoplasm of colon 02/20/2 015 Diaphragmatic hernia without mention of obstruction or gangrene 02/21/2014 Hematuria 12/16/2014 Abdominal pain, unspecified site 11/23/2012 Diverticulitis of colon with hemorrhage 02/21/2014 Hypothyroidism 07/11/2015 documented as of this encounter (statuses as of 01/22/2022) [facility] History of Past illness Narrative* Problem Noted Date Resolved Date Neck pain 12/08/2014 12/16/2014 Cervical radiculitis 12/08/2014 12/16/2014 NO SHOW 06/07/2014 12/16/2014 Pain management 02/02/2014 12/16/2014 Overview: Dr. Kidd in [place]- plans to change to closer pain management. Disorder of bone and cartilage, unspecified 01/2512/16/2014 Overview: Fosamax ~[id number]. DM (diabetes mellitus) 11/23/2012 5 Last Assessment & Plan: Review of labs with slight elevation in blood sugars. Recent hgba1c with excellent control at 6.2. We continued her metformin 500mg daily. Fasting blood sugars are ranging 114 low to 130-155 max. Lumbago 05/30/2006 12/16/2014 Overview: L4,L5 compression fracture. [facility] as of 2012. Depressive disorder, not elsewhere classified 12/16/2014 Allergic rhinitis, cause unspecified 05/30/2006 12/16/2014 Obesity, unspecified 05/30/2006 12/16/2014 Esophageal reflux 12/16/2014 Benign neoplasm of colon 015 Diaphragmatic hernia without mention of obstruction or gangrene 02/21/2014 Hematuria 12/16/2014 Abdominal pain, unspecified site 11/23/2012 Diverticulitis of colon with hemorrhage 02/21/2014 Hypothyroidism 07/11/2015 documented as of this encounter (statuses as of 01/23/2022) [facility] History of Past illness Narrative* Problem Noted Date Resolved Date Neck pain 12/08/2014 12/16/2014 Cervical radiculitis 12/08/2014 12/16/2014 NO SHOW 06/07/2014 12/16/2014 Pain management 02/02/2014 12/16/2014 Overview: Dr. Kidd in [place]- plans to change to closer pain management. Disorder of bone and cartilage, unspecified 01/2512/16/2014 Overview: Fosamax ~[id number]. DM (diabetes mellitus) 11/23/2012 5 Last Assessment & Plan: Review of labs with slight elevation in blood sugars. Recent hgba1c with excellent control at 6.2. We continued her metformin 500mg daily. Fasting blood sugars are ranging 114 low to 130-155 max. Lumbago 05/30/2006 12/16/2014 Overview: L4,L5 compression fracture. [facility] as of 2012. Depressive disorder, not elsewhere classified 12/16/2014 Allergic rhinitis, cause unspecified 05/30/2006 12/16/2014 Obesity, unspecified 05/30/2006 12/16/2014 Esophageal reflux 12/16/2014 Benign neoplasm of colon 015 Diaphragmatic hernia without mention of obstruction or gangrene 02/21/2014 Hematuria 12/16/2014 Abdominal pain, unspecified site 11/23/2012 Diverticulitis of colon with hemorrhage 02/21/2014 Hypothyroidism 07/11/2015 documented as of this encounter (statuses as of 01/23/2022) [facility] History of Past illness Narrative* Problem Noted Date Resolved Date Neck pain 12/08/2014 12/16/2014 Cervical radiculitis 12/08/2014 12/16/2014 NO SHOW 06/07/2014 12/16/2014 Pain management 02/02/2014 12/16/2014 Overview: Dr. Kidd in [place]- plans to change to closer pain management. Disorder of bone and cartilage, unspecified 01/2512/16/2014 Overview: Fosamax ~[id number]. DM (diabetes mellitus) 11/23/2012 5 Last Assessment & Plan: Review of labs with slight elevation in blood sugars. Recent hgba1c with excellent control at 6.2. We continued her metformin 500mg daily. Fasting blood sugars are ranging 114 low to 130-155 max. Lumbago 05/30/2006 12/16/2014 Overview: L4,L5 compression fracture. [facility] as of 2012. Depressive disorder, not elsewhere classified 12/16/2014 Allergic rhinitis, cause unspecified 05/30/2006 12/16/2014 Obesity, unspecified 05/30/2006 12/16/2014 Esophageal reflux 12/16/2014 Benign neoplasm of colon 015 Diaphragmatic hernia without mention of obstruction or gangrene 02/21/2014 Hematuria 12/16/2014 Abdominal pain, unspecified site 11/23/2012 Diverticulitis of colon with hemorrhage 02/21/2014 Hypothyroidism 07/11/2015 documented as of this encounter (statuses as of 01/24/2022) [facility] History of Past illness Narrative* Problem Noted Date Resolved Date Neck pain 12/08/2014 12/16/2014 Cervical radiculitis 12/08/2014 12/16/2014 NO SHOW 06/07/2014 12/16/2014 Pain management 02/02/2014 12/16/2014 Overview: Dr. Kidd in [place]- plans to change to closer pain management. Disorder of bone and cartilage, unspecified 01/2512/16/2014 Overview: Fosamax ~[id number]. DM (diabetes mellitus) 11/23/2012 5 Last Assessment & Plan: Review of labs with slight elevation in blood sugars. Recent hgba1c with excellent control at 6.2. We continued her metformin 500mg daily. Fasting blood sugars are ranging 114 low to 130-155 max. Lumbago 05/30/2006 12/16/2014 Overview: L4,L5 compression fracture. [facility] as of 2012. Depressive disorder, not elsewhere classified 12/16/2014 Allergic rhinitis, cause unspecified 05/30/2006 12/16/2014 Obesity, unspecified 05/30/2006 12/16/2014 Esophageal reflux 12/16/2014 Benign neoplasm of colon 015 Diaphragmatic hernia without mention of obstruction or gangrene 02/21/2014 Hematuria 12/16/2014 Abdominal pain, unspecified site 11/23/2012 Diverticulitis of colon with hemorrhage 02/21/2014 Hypothyroidism 07/11/2015 documented as of this encounter (statuses as of 01/25/2022) [facility] History of Past illness Narrative* Problem Noted Date Resolved Date Neck pain 12/08/2014 12/16/2014 Cervical radiculitis 12/08/2014 12/16/2014 NO SHOW 06/07/2014 12/16/2014 Pain management 02/02/2014 12/16/2014 Overview: Dr. Kidd in [place]- plans to change to closer pain management. Disorder of bone and cartilage, unspecified 01/2512/16/2014 Overview: Fosamax ~[id number]. DM (diabetes mellitus) 11/23/2012 5 Last Assessment & Plan: Review of labs with slight elevation in blood sugars. Recent hgba1c with excellent control at 6.2. We continued her metformin 500mg daily. Fasting blood sugars are ranging 114 low to 130-155 max. Lumbago 05/30/2006 12/16/2014 Overview: L4,L5 compression fracture. [facility] as of 2012. Depressive disorder, not elsewhere classified 12/16/2014 Allergic rhinitis, cause unspecified 05/30/2006 12/16/2014 Obesity, unspecified 05/30/2006 12/16/2014 Esophageal reflux 12/16/2014 Benign neoplasm of colon 015 Diaphragmatic hernia without mention of obstruction or gangrene 02/21/2014 Hematuria 12/16/2014 Abdominal pain, unspecified site 11/23/2012 Diverticulitis of colon with hemorrhage 02/21/2014 Hypothyroidism 07/11/2015 documented as of this encounter (statuses as of 02/27/2022) [facility] History of Past illness Narrative* Problem Noted Date Resolved Date Neck pain 12/08/2014 12/16/2014 Cervical radiculitis 12/08/2014 12/16/2014 NO SHOW 06/07/2014 12/16/2014 Pain management 02/02/2014 12/16/2014 Overview: Dr. Kidd in [place]- plans to change to closer pain management. Disorder of bone and cartilage, unspecified 01/2512/16/2014 Overview: Fosamax ~[id number]. DM (diabetes mellitus) 11/23/2012 5 Last Assessment & Plan: Review of labs with slight elevation in blood sugars. Recent hgba1c with excellent control at 6.2. We continued her metformin 500mg daily. Fasting blood sugars are ranging 114 low to 130-155 max. Lumbago 05/30/2006 12/16/2014 Overview: L4,L5 compression fracture. [place] [facility] as of 2012. Depressive disorder, not elsewhere classified 12/16/2014 Allergic rhinitis, cause unspecified 05/30/2006 12/16/2014 Obesity, unspecified 05/30/2006 12/16/2014 Esophageal reflux 12/16/2014 Benign neoplasm of colon 015 Diaphragmatic hernia without mention of obstruction or gangrene 02/21/2014 Hematuria 12/16/2014 Abdominal pain, unspecified site 11/23/2012 Diverticulitis of colon with hemorrhage 02/21/2014 Hypothyroidism 07/11/2015 documented as of this encounter (statuses as of 02/28/2022) [facility] History of Past illness Narrative* Problem Noted Date Resolved Date Neck pain 12/08/2014 12/16/2014 Cervical radiculitis 12/08/2014 12/16/2014 NO SHOW 06/07/2014 12/16/2014 Pain management 02/02/2014 12/16/2014 Overview: Dr. Kidd in [place]- plans to change to closer pain management. Disorder of bone and cartilage, unspecified 01/2512/16/2014 Overview: Fosamax ~[phone]. DM (diabetes mellitus) 11/23/2012 5 Last Assessment & Plan: Review of labs with slight elevation in blood sugars. Recent hgba1c with excellent control at 6.2. We continued her metformin 500mg daily. Fasting blood sugars are ranging 114 low to 130-155 max. Lumbago 05/30/2006 12/16/2014 Overview: L4,L5 compression fracture. [place] [facility] as of 2012. Depressive disorder, not elsewhere classified 12/16/2014 Allergic rhinitis, cause unspecified 05/30/2006 12/16/2014 Obesity, unspecified 05/30/2006 12/16/2014 Esophageal reflux 12/16/2014 Benign neoplasm of colon 015 Diaphragmatic hernia without mention of obstruction or gangrene 02/21/2014 Hematuria 12/16/2014 Abdominal pain, unspecified site 11/23/2012 Diverticulitis of colon with hemorrhage 02/21/2014 Hypothyroidism 07/11/2015 documented as of this encounter (statuses as of 02/28/2022) [facility] History of Past illness Narrative* Problem Noted Date Resolved Date Neck pain 12/08/2014 12/16/2014 Cervical radiculitis 12/08/2014 12/16/2014 NO SHOW 06/07/2014 12/16/2014 Pain management 02/02/2014 12/16/2014 Overview: Dr. Kidd in [place]- plans to change to closer pain management. Disorder of bone and cartilage, unspecified 01/2512/16/2014 Overview: Fosamax ~[id number]. DM (diabetes mellitus) 11/23/2012 5 Last Assessment & Plan: Review of labs with slight elevation in blood sugars. Recent hgba1c with excellent control at 6.2. We continued her metformin 500mg daily. Fasting blood sugars are ranging 114 low to 130-155 max. Lumbago 05/30/2006 12/16/2014 Overview: L4,L5 compression fracture. [place] [facility] as of 2012. Depressive disorder, not elsewhere classified 12/16/2014 Allergic rhinitis, cause unspecified 05/30/2006 12/16/2014 Obesity, unspecified 05/30/2006 12/16/2014 Esophageal reflux 12/16/2014 Benign neoplasm of colon 015 Diaphragmatic hernia without mention of obstruction or gangrene 02/21/2014 Hematuria 12/16/2014 Abdominal pain, unspecified site 11/23/2012 Diverticulitis of colon with hemorrhage 02/21/2014 Hypothyroidism 07/11/2015 documented as of this encounter (statuses as of 03/06/2022) [facility] History of Past illness Narrative* Problem Noted Date Resolved Date Neck pain 12/08/2014 12/16/2014 Cervical radiculitis 12/08/2014 12/16/2014 NO SHOW 06/07/2014 12/16/2014 Pain management 02/02/2014 12/16/2014 Overview: Dr. Kidd in [place]- plans to change to closer pain management. Disorder of bone and cartilage, unspecified 01/2512/16/2014 Overview: Fosamax ~[phone]. DM (diabetes mellitus) 11/23/2012 5 Last Assessment & Plan: Review of labs with slight elevation in blood sugars. Recent hgba1c with excellent control at 6.2. We continued her metformin 500mg daily. Fasting blood sugars are ranging 114 low to 130-155 max. Lumbago 05/30/2006 12/16/2014 Overview: L4,L5 compression fracture. [place] [facility] as of 2012. Depressive disorder, not elsewhere classified 12/16/2014 Allergic rhinitis, cause unspecified 05/30/2006 12/16/2014 Obesity, unspecified 05/30/2006 12/16/2014 Esophageal reflux 12/16/2014 Benign neoplasm of colon 015 Diaphragmatic hernia without mention of obstruction or gangrene 02/21/2014 Hematuria 12/16/2014 Abdominal pain, unspecified site 11/23/2012 Diverticulitis of colon with hemorrhage 02/21/2014 Hypothyroidism 07/11/2015 documented as of this encounter (statuses as of 03/11/2022) [facility] History of Past illness Narrative* Problem Noted Date Resolved Date Neck pain 12/08/2014 12/16/2014 Cervical radiculitis 12/08/2014 12/16/2014 NO SHOW 06/07/2014 12/16/2014 Pain management 02/02/2014 12/16/2014 Overview: Dr. Kidd in [place]- plans to change to closer pain management. Disorder of bone and cartilage, unspecified 01/2512/16/2014 Overview: Fosamax ~[phone]. DM (diabetes mellitus) 11/23/2012 5 Last Assessment & Plan: Review of labs with slight elevation in blood sugars. Recent hgba1c with excellent control at 6.2. We continued her metformin 500mg daily. Fasting blood sugars are ranging 114 low to 130-155 max. Lumbago 05/30/2006 12/16/2014 Overview: L4,L5 compression fracture. [place] [facility] as of 2012. Depressive disorder, not elsewhere classified 12/16/2014 Allergic rhinitis, cause unspecified 05/30/2006 12/16/2014 Obesity, unspecified 05/30/2006 12/16/2014 Esophageal reflux 12/16/2014 Benign neoplasm of colon 015 Diaphragmatic hernia without mention of obstruction or gangrene 02/21/2014 Hematuria 12/16/2014 Abdominal pain, unspecified site 11/23/2012 Diverticulitis of colon with hemorrhage 02/21/2014 Hypothyroidism 07/11/2015 documented as of this encounter (statuses as of 03/19/2022) [facility] History of Past illness Narrative* Problem Noted Date Resolved Date Neck pain 12/08/2014 12/16/2014 Cervical radiculitis 12/08/2014 12/16/2014 NO SHOW 06/07/2014 12/16/2014 Pain management 02/02/2014 12/16/2014 Overview: Dr. Kidd in [place]- plans to change to closer pain management. Disorder of bone and cartilage, unspecified 01/2512/16/2014 Overview: Fosamax ~[phone]. DM (diabetes mellitus) 11/23/2012 5 Last Assessment & Plan: Review of labs with slight elevation in blood sugars. Recent hgba1c with excellent control at 6.2. We continued her metformin 500mg daily. Fasting blood sugars are ranging 114 low to 130-155 max. Lumbago 05/30/2006 12/16/2014 Overview: L4,L5 compression fracture. [place] [facility] as of 2012. Depressive disorder, not elsewhere classified 12/16/2014 Allergic rhinitis, cause unspecified 05/30/2006 12/16/2014 Obesity, unspecified 05/30/2006 12/16/2014 Esophageal reflux 12/16/2014 Benign neoplasm of colon 015 Diaphragmatic hernia without mention of obstruction or gangrene 02/21/2014 Hematuria 12/16/2014 Abdominal pain, unspecified site 11/23/2012 Diverticulitis of colon with hemorrhage 02/21/2014 Hypothyroidism 07/11/2015 documented as of this encounter (statuses as of 03/26/2022) [facility] History of Past illness Narrative* Problem Noted Date Resolved Date Neck pain 12/08/2014 12/16/2014 Cervical radiculitis 12/08/2014 12/16/2014 NO SHOW 06/07/2014 12/16/2014 Pain management 02/02/2014 12/16/2014 Overview: Dr. Kidd in [place]- plans to change to closer pain management. Disorder of bone and cartilage, unspecified 01/2512/16/2014 Overview: Fosamax ~[id number]. DM (diabetes mellitus) 11/23/2012 5 Last Assessment & Plan: Review of labs with slight elevation in blood sugars. Recent hgba1c with excellent control at 6.2. We continued her metformin 500mg daily. Fasting blood sugars are ranging 114 low to 130-155 max. Lumbago 05/30/2006 12/16/2014 Overview: L4,L5 compression fracture. [place] [facility] as of 2012. Depressive disorder, not elsewhere classified 12/16/2014 Allergic rhinitis, cause unspecified 05/30/2006 12/16/2014 Obesity, unspecified 05/30/2006 12/16/2014 Esophageal reflux 12/16/2014 Benign neoplasm of colon 015 Diaphragmatic hernia without mention of obstruction or gangrene 02/21/2014 Hematuria 12/16/2014 Abdominal pain, unspecified site 11/23/2012 Diverticulitis of colon with hemorrhage 02/21/2014 Hypothyroidism 07/11/2015 documented as of this encounter (statuses as of 04/04/2022) [facility]* Diagnosis Encounter for gynecological examination (general) (routine) without abnormal findings- Primary Encounter for screening mammogram for breast cancer [facility] Encounter for screening mammogram for breast cancer [facility] Diagnosis Encounter for screening mammogram for breast cancer [facility] Diagnosis Abnormal mammogram Abnormal mammogram, unspecified [facility] Diagnosis Diverticulitis- Primary Diverticulitis of colon (without mention of hemorrhage) Crohn's disease involving terminal ileum (HCC) Acquired hypothyroidism Unspecified hypothyroidism Essential hypertension, benign Type 2 diabetes mellitus without retinopathy (HCC) Type II or unspecified type diabetes mellitus without mention of complication, not stated as uncontrolled [facility] Diagnosis Crohn's disease involving terminal ileum (HCC)- Primary Sigmoid diverticulitis Diverticulitis of colon (without mention of hemorrhage) Chronic antral gastritis Atrophic gastritis without mention of hemorrhage Early satiety Nausea Nausea alone Skin exam, screening for cancer Screening for malignant neoplasm of the skin [facility] Diagnosis Crohn's disease involving terminal ileum (HCC) [facility] Diagnosis Sigmoid diverticulitis- Primary Diverticulitis of colon (without mention of hemorrhage) [facility] Diagnosis Early satiety Nausea Nausea alone documented in this encounter [facility] note* Diagnosis Essential hypertension, benign documented in this encounter [facility] note* Diagnosis Need for vaccination- Primary Need for prophylactic vaccination and inoculation against unspecified single disease documented [facility] this encounter [facility]* Diagnosis Left lower quadrant abdominal pain- Primary RLQ abdominal pain Abdominal pain, right lower quadrant Pelvic pain Vaginal itching Pruritus of genital organs documented in this encounter [facility]* Diagnosis Left lower quadrant abdominal pain RLQ abdominal pain Abdominal pain, right lower quadrant Pelvic pain documented in this encounter [facility]* Diagnosis Vaginal itching Pruritus of genital organs documented in this encounter [facility] note* Diagnosis Need for vaccination- Primary Need for prophylactic vaccination and inoculation against unspecified single disease documented [facility] this encounter [facility]* Diagnosis Crohn's disease involving terminal ileum (HCC) Sigmoid diverticulitis Diverticulitis of colon (without mention of hemorrhage) Preop examination Preoperative examination, unspecified LINDY on CPAP Obstructive sleep apnea (adult) (pediatric) Hyperlipidemia, unspecified hyperlipidemia type Hypertension, unspecified type documented in this encounter [facility] note* Diagnosis Periumbilical abdominal pain- Primary Abdominal pain, periumbilic Seasonal allergies Allergic rhinitis, cause unspecified Acute constipation Unspecified constipation documented in this encounter [facility] note* Diagnosis Acquired hypothyroidism Unspecified hypothyroidism documented in this encounter [facility] note* Diagnosis Periumbilical abdominal pain- Primary Abdominal pain, periumbilic Acute constipation Unspecified constipation documented [facility] this encounter [facility]* Diagnosis Periumbilical abdominal pain Abdominal pain, periumbilic Acute constipation Unspecified constipation documented in this encounter [facility]* Diagnosis Essential hypertension, benign documented in this encounter [facility]* Diagnosis Hypokalemia Hypopotassemia documented in this encounter [facility]* Diagnosis Essential hypertension, benign Crohn's disease involving terminal ileum (HCC) documented in this encounter [facility]* Diagnosis Crohn's disease involving terminal ileum (HCC) Essential hypertension, benign Cervical spondylosis without myelopathy [facility] Diagnosis Chronic low back pain with left-sided sciatica, unspecified back pain laterality- Primary Essential hypertension, benign Acquired hypothyroidism Unspecified hypothyroidism Crohn's disease involving terminal ileum (HCC) Mixed hyperlipidemia Hypokalemia Hypopotassemia documented in this encounter [facility]* Diagnosis Essential hypertension, benign- Primary [facility] Diagnosis Onset Date Resolution Status Crohns disease chronic Diverticulitis resolved [facility] Work Phone: Evaluation note* Diagnosis Onset Date Resolution Status Diverticulitis resolved C. difficile colitis resolve d Dehydration resolved Failure of outpatient treatment resolved Nausea vomiting and diarrhea resolved [facility] Work Phone: Evaluation note* Diagnosis Onset Date [...] pain noneactive Hematuria acute Urinary frequency acute [facility] Work Phone: Evaluation note* Diagnosis Onset Date [...] Right flank pain noneactive Abdominal pain noneactive [facility] Work Phone: Evaluation note* Diagnosis Encounter for screening mammogram for breast cancer [facility] Diagnosis Onset Date Resolution Status Diverticulitis [...] cardiovascular examination acute Essential (primary) hypertension chronic [facility] Work Phone: Evaluation note* Diagnosis Onset Date Resolution Status Crohns disease chronic Crohns disease chronic Dyslipidemia chronic Moderate major depression no neactive Acquired hypothyroidism none active Chronic constipation noneact jacky Chronic pain noneactive Moderate anxiety noneactive Essential hypertension nonea ctive Crohns disease chronic Acute upper respiratory infection acute Acquired hypothyroidism none active Chronic constipation noneact jacky Leukocytosis noneactive Prediabetes noneactive [facility] Work Phone: Evaluation note* Diagnosis Onset Date Resolution Status Acute upper respiratory infection resolved Acquired hypothyroidism none active Chronic constipation noneact jacky Leukocytosis noneactive Prediabetes noneactive Crohns disease chronic Crohns disease chronic Dyslipidemia chronic Moderate major depression no neactive Acquired hypothyroidism none active Chronic constipation noneact jacky Chronic pain noneactive Urinary frequency noneactive Moderate anxiety noneactive Essential hypertension nonea ctive [facility] Work Phone: Evaluation note* Diagnosis Onset Date [...] Crohns disease chronic Clostridioides difficile infection resolved [facility] Work Phone: Evaluation note* Diagnosis Onset Date [...] nonea ctive Screening for breast cancer noneactive [facility] Work Phone: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 Records regulations: The Federal rules restrict any use of the information to criminally investigate or prosecute any alcohol or drug abuse patient.[facility] Hospital[facility] the event this information is protected by the Federal Confidentiality of Alcohol and Drug Abuse Patient Records regulations: The Federal rules restrict any use of the information to criminally investigate or prosecute any alcohol or drug abuse patient.[facility] the event this information is protected by the Federal Confidentiality of Alcohol and Drug Abuse Patient Records regulations: The Federal rules restrict any use of the information to criminally investigate or prosecute any alcohol or drug abuse patient.[facility] the event this information is protected by the Federal Confidentiality of Alcohol and Drug Abuse Patient Records regulations: The Federal rules restrict any use of the information to criminally investigate or prosecute any alcohol or drug abuse patient.[facility] the event this information is protected by the Federal Confidentiality of Alcohol and Drug Abuse Patient Records regulations: The Federal rules restrict any use of the information to criminally investigate or prosecute any alcohol or drug abuse patient.[facility] the event this information is protected by the Federal Confidentiality of Alcohol and Drug Abuse Patient Records regulations: The Federal rules restrict any use of the information to criminally investigate or prosecute any alcohol or drug abuse patient.[facility] the event this information is protected by the Federal Confidentiality of Alcohol and Drug Abuse Patient Records regulations: The Federal rules restrict any use of the information to criminally investigate or prosecute any alcohol or drug abuse patient.[facility] the event this information is protected by the Federal Confidentiality of Alcohol and Drug Abuse Patient Records regulations: The Federal rules restrict any use of the information to criminally investigate or prosecute any alcohol or drug abuse patient.[facility] Hospital[facility] the event this information is protected by the Federal Confidentiality of Alcohol and Drug Abuse Patient Records regulations: The Federal rules restrict any use of the information to criminally investigate or prosecute any alcohol or drug abuse patient.[facility] Hospital[facility] the event this information is protected by the Federal Confidentiality of Alcohol and Drug Abuse Patient Records regulations: The Federal rules restrict any use of the information to criminally investigate or prosecute any alcohol or drug abuse patient.[facility] Hospital[facility] the event this information is protected by the Federal Confidentiality of Alcohol and Drug Abuse Patient Records regulations: The Federal rules restrict any use of the information to criminally investigate or prosecute any alcohol or drug abuse patient.[facility] Hospital[facility] the event this information is protected by the Federal Confidentiality of Alcohol and Drug Abuse Patient Records regulations: The Federal rules restrict any use of the information to criminally investigate or prosecute any alcohol or drug abuse patient.[facility] Hospital[facility] the event this information is protected by the Federal Confidentiality of Alcohol and Drug Abuse Patient Records regulations: The Federal rules restrict any use of the information to criminally investigate or prosecute any alcohol or drug abuse patient.[facility] Hospital[facility] the event this information is protected by the Federal Confidentiality of Alcohol and Drug Abuse Patient Records regulations: The Federal rules restrict any use of the information to criminally investigate or prosecute any alcohol or drug abuse patient.[facility] Hospital[facility] the event this information is protected by the Federal Confidentiality of Alcohol and Drug Abuse Patient Records regulations: The Federal rules restrict any use of the information to criminally investigate or prosecute any alcohol or drug abuse patient.[facility] Hospital[facility] the event this information is protected by the Federal Confidentiality of Alcohol and Drug Abuse Patient Records regulations: The Federal rules restrict any use of the information to criminally investigate or prosecute any alcohol or drug abuse patient.[facility] Hospital[facility] the event this information is protected by the Federal Confidentiality of Alcohol and Drug Abuse Patient Records regulations: The Federal rules restrict any use of the information to criminally investigate or prosecute any alcohol or drug abuse patient.[facility] Hospital[facility] the event this information is protected by the Federal Confidentiality of Alcohol and Drug Abuse Patient Records regulations: The Federal rules restrict any use of the information to criminally investigate or prosecute any alcohol or drug abuse patient.[facility] Hospital[facility] the event this information is protected by the Federal Confidentiality of Alcohol and Drug Abuse Patient Records regulations: The Federal rules restrict any use of the information to criminally investigate or prosecute any alcohol or drug abuse patient.[facility] HospitalIn the event this information is protected by the Federal Confidentiality of Alcohol and Drug Abuse Patient Records regulations: The Federal rules restrict any use of the information to criminally investigate or prosecute any alcohol or drug abuse patient.[facility] HospitalIn the event this information is protected by the Federal Confidentiality of Alcohol and Drug Abuse Patient Records regulations: The Federal rules restrict any use of the information to criminally investigate or prosecute any alcohol or drug abuse patient.[facility] HospitalIn the event this information is protected by the Federal Confidentiality of Alcohol and Drug Abuse Patient Records regulations: The Federal rules restrict any use of the information to criminally investigate or prosecute any alcohol or drug abuse patient.[facility] HospitalIn the event this information is protected by the Federal Confidentiality of Alcohol and Drug Abuse Patient Records regulations: The Federal rules restrict any use of the information to criminally investigate or prosecute any alcohol or drug abuse patient.[facility] HospitalIn the event this information is protected by the Federal Confidentiality of Alcohol and Drug Abuse Patient Records regulations: The Federal rules restrict any use of the information to criminally investigate or prosecute any alcohol or drug abuse patient.[facility] HospitalIn the event this information is protected by the Federal Confidentiality of Alcohol and Drug Abuse Patient Records regulations: The Federal rules restrict any use of the information to criminally investigate or prosecute any alcohol or drug abuse patient.[facility] HospitalIn the event this information is protected by the Federal Confidentiality of Alcohol and Drug Abuse Patient Records regulations: The Federal rules restrict any use of the information to criminally investigate or prosecute any alcohol or drug abuse patient.[facility] HospitalIn the event this information is protected by the Federal Confidentiality of Alcohol and Drug Abuse Patient Records regulations: The Federal rules restrict any use of the information to criminally investigate or prosecute any alcohol or drug abuse patient.[facility] HospitalIn the event this information is protected by the Federal Confidentiality of Alcohol and Drug Abuse Patient Records regulations: The Federal rules restrict any use of the information to criminally investigate or prosecute any alcohol or drug abuse patient.[facility] HospitalIn the event this information is protected by the Federal Confidentiality of Alcohol and Drug Abuse Patient Records regulations: The Federal rules restrict any use of the information to criminally investigate or prosecute any alcohol or drug abuse patient.[facility] HospitalIn the event this information is protected by the Federal Confidentiality of Alcohol and Drug Abuse Patient Records regulations: The Federal rules restrict any use of the information to criminally investigate or prosecute any alcohol or drug abuse patient.[facility] HospitalIn the event this information is protected by the Federal Confidentiality of Alcohol and Drug Abuse Patient Records regulations: The Federal rules restrict any use of the information to criminally investigate or prosecute any alcohol or drug abuse patient.[facility] HospitalIn the event this information is protected by the Federal Confidentiality of Alcohol and Drug Abuse Patient Records regulations: The Federal rules restrict any use of the information to criminally investigate or prosecute any alcohol or drug abuse patient.[facility] HospitalIn the event this information is protected by the Federal Confidentiality of Alcohol and Drug Abuse Patient Records regulations: The Federal rules restrict any use of the information to criminally investigate or prosecute any alcohol or drug abuse patient.[facility] HospitalIn the event this information is protected by the Federal Confidentiality of Alcohol and Drug Abuse Patient Records regulations: The Federal rules restrict any use of the information to criminally investigate or prosecute any alcohol or drug abuse patient.[facility] HospitalIn the event this information is protected by the Federal Confidentiality of Alcohol and Drug Abuse Patient Records regulations: The Federal rules restrict any use of the information to criminally investigate or prosecute any alcohol or drug abuse patient.[facility] HospitalIn the event this information is protected by the Federal Confidentiality of Alcohol and Drug Abuse Patient Records regulations: The Federal rules restrict any use of the information to criminally investigate or prosecute any alcohol or drug abuse patient.[facility] HospitalIn the event this information is protected by the Federal Confidentiality of Alcohol and Drug Abuse Patient Records regulations: The Federal rules restrict any use of the information to criminally investigate or prosecute any alcohol or drug abuse patient.[facility] HospitalIn the event this information is protected by the Federal Confidentiality of Alcohol and Drug Abuse Patient Records regulations: The Federal rules restrict any use of the information to criminally investigate or prosecute any alcohol or drug abuse patient.[facility] Reason for Visit (unrecogniz ed section and content) Reason Comments Yearly Exam With Mammogram Reason Comments Opened In Error Reason Comments Results Reason Comments Radiology US Specialty Diagnoses / Procedures Referred By Elias vaughan Referred To Contact [facility] Diagnoses Abnormal mammogram Procedures US BREAST LTD LT US BREAST UNI REAL TIME WITH IMAGE LIMITED PodlogThao murray APRN.MAINTENANCE PLUMBER [address] [place] [address] [facility] [address] [place] [address] Referral ID Status Reason Start Date Expiration Date V isits Requested Visits Authorized [id number] Closed Auto-Generate d Referral 01/23/2022 02/22/2023 1 1 Reason Comments Results breast ultrasound Reason Comments ED Follow-up Diverticulitis Reason Comments Crohns Diverticulitis, GI m joesph to [place], needs new GI Reason Onset Date Comments Refill Request 03/19/2022 Reason Comments Refill Request Reason Comments Orders Reason Comments Abdominal Pain Specialty Diagnoses / Procedures Referred By Elias t Referred To Contact CT IMAGING Diagnoses Left lower quadrant abdominal pain RLQ abdominal pain Pelvic pain Procedures CT ABD/PEL W IVCON CT ABD & PELVIS W/CONTRAST Liz Bean, GEORGE.MAINTENANCE PLUMBER [address] [place] [address] Ct Imaging Referral ID Status Reason Start Date Expiration Date V isits Requested Visits Authorized [id number] Closed Auto-Generate d Referral 04/22/2022 06/21/2022 2 [...] Care Teams (unrecognized sec tion and content) Cutting Machine Tender Helper Relationship Specialty Start Date End Date Maria Del Carmen Leong MD [address] [place], [place] [id number] PCP - General Family Practice 08/26/18 Cutting Machine Tender Helper Relationship Specialty Start Date End Date Maria Del Carmen Leong MD [address] [place], [place] [id number] PCP - General Family Practice 08/26/18 Cutting Machine Tender Helper Relationship Specialty Start Date End Date Maria Del Carmen Leong MD [address] [place], [place] [id number] PCP - General Family Practice 08/26/18 Cutting Machine Tender Helper Relationship Specialty Start Date End Date Maria Del Carmen Leong MD [address] [place], [place] [id number] PCP - General Family Practice 08/26/18 Cutting Machine Tender Helper Relationship Specialty Start Date End Date Maria Del Carmen Leong MD [address] [place], [place] [id number] PCP - General Family Practice 08/26/18 Cutting Machine Tender Helper Relationship Specialty Start Date End Date Maria Del Carmen Leong MD [address] [place] [address] PCP - General Family Practice 08/26/18 Cutting Machine Tender Helper Relationship Specialty Start Date End Date Maria Del Carmen Leong MD [address] [place] [address] PCP - General Family Practice 08/26/18 Cutting Machine Tender Helper Relationship Specialty Start Date End Date Maria Del Carmen Leong MD [address] [place] [address] PCP - General Family Practice 08/26/18 Cutting Machine Tender Helper Relationship Specialty Start Date End Date Maria Del Carmen Leong MD [address] [place] [address] PCP - General Family Practice 08/26/18 Cutting Machine Tender Helper Relationship Specialty Start Date End Date Maria Del Carmen Leong MD [address] [place] [address] PCP - General Family Practice 08/26/18 Cutting Machine Tender Helper Relationship Specialty Start Date End Date Maria Del Carmen Leong MD [address] [place] [address] PCP - General Family Practice 08/26/18 Cutting Machine Tender Helper Relationship Specialty Start Date End Date Maria Del Carmen Leong MD [address] [place] [address] PCP - General Family Practice 08/26/18 Cutting Machine Tender Helper Relationship Specialty Start Date End Date Maria Del Carmen Leong MD [address] [place] [address] PCP - General Family Practice 08/26/18 Cutting Machine Tender Helper Relationship Specialty Start Date End Date Maria Del Carmen Leong MD [address] [place] [address] PCP - General Family Practice 08/26/18 Cutting Machine Tender Helper Relationship Specialty Start Date End Date Maria Del Carmen Leong MD [address] [place] [address] PCP - General Family Practice 08/26/18 Cutting Machine Tender Helper Relationship Specialty Start Date End Date Maria Del Carmen Leong MD [address] [place] [address] PCP - General Family Practice 08/26/18 Cutting Machine Tender Helper Relationship Specialty Start Date End Date Maria Del Carmen Leong MD [address] [place] [address] PCP - General Family Practice 08/26/18 Cutting Machine Tender Helper Relationship Specialty Start Date End Date Maria Del Carmen Leong MD [address] [place] [address] PCP - General Family Practice 08/26/18 Cutting Machine Tender Helper Relationship Specialty Start Date End Date Maria Del Carmen Leong MD [address] [place] [address] PCP - General Family Practice 08/26/18 Cutting Machine Tender Helper Relationship Specialty Start Date End Date Maria Del Carmen Leong MD [address] [place] [address] PCP - General Family Practice 08/26/18 Cutting Machine Tender Helper Relationship Specialty Start Date End Date Maria Del Carmen Leong MD [address] [place] [address] PCP - General Family Practice 08/26/18 Cutting Machine Tender Helper Relationship Specialty Start Date End Date Maria Del Carmen Leong MD [address] [place] [address] PCP - General Family Practice 08/26/18 Cutting Machine Tender Helper Relationship Specialty Start Date End Date Maria Del Carmen Leong MD [address] [place] [address] PCP - General Family Medicine 08/26/18 Cutting Machine Tender Helper Relationship Specialty Start Date End Date Maria Del Carmen Leong MD [address] [place] [address] PCP - General Family Medicine 08/26/18 Cutting Machine Tender Helper Relationship Specialty Start Date End Date Maria Del Carmen Leong MD [address] [place] [address] PCP - General Family Medicine 08/26/18 Cutting Machine Tender Helper Relationship Specialty Start Date End Date Maria Del Carmen Leong MD [address] [place] [address] PCP - General Family Medicine 08/26/18 Cutting Machine Tender Helper Relationship Specialty Start Date End Date Maria Del Carmen Leong MD [address] [place] [address] PCP - General Family Medicine 08/26/18 Cutting Machine Tender Helper Relationship Specialty Start Date End Date Maria Del Carmen Leong MD [address] [place] [address] PCP - General Family Medicine 08/26/18 Cutting Machine Tender Helper Relationship Specialty Start Date End Date Maria Del Carmen Leong MD [address] [place] [address] PCP - General Family Medicine 08/26/18 Team [...] Care Provider, Referri ng Provider Active Reji Strickland PA, PA Attending Provider Active Team Status: Inactive [...] Bull DO Attending Provider, Referring Provider Active Cutting Machine Tender Helper Relationship Specialty Start Date End Date Maria Del Carmen Leong MD [address] [place], [place] [address] PCP - General Family Medicine 08/26/18 Team Status: Inactive Member Role Status Dates Dr. Andreas Buenrostro MD Primary Care Provider Active Dr. Raoul Castaneda MD Attending Provider Active Team Status: Inactive Member Role Status Dates Dr. Andreas Buenrostro MD Primary Care Provider, Referri ng Provider Active Deondre Ernst PA, PA Attending Provider Active Team Status: Active [...] Dr. Arthur Bull DO Attending Provider Active Cutting Machine Tender Helper Relationship Specialty Start Date End Date Maria Del Carmen Leong MD [address] [place] [address] PCP - General Family Medicine 08/26/18 Cutting Machine Tender Helper Relationship Specialty Start Date End Date Maria Del Carmen Leong MD [address] [place], [place] [address] PCP - General Family Medicine 08/26/18 Cutting Machine Tender Helper Relationship Specialty Start Date End Date Maria Del Carmen Leong MD [address] [place], [place] [id number] PCP - General Family Medicine 08/26/18 Thao Pineda APRN.MAINTENANCE PLUMBER [address] [place] [address] [facility] 10/02/24 Tracy Vasquez APRN.MAINTENANCE PLUMBER [address] [place], [place] [address] [facility] Family [facility] 01/17/25 Team Status: Inactive Member Role Status [...] April 08, 2025 End: April 08, 2025 Cutting Machine Tender Helper Relationship Specialty Start Date End Date Podlogar, Thao, COOKY MACHINE OPERATOR.MAINTENANCE PLUMBER [address] [place] [address] [facility] 10/02/24 Cutting Machine Tender Helper Relationship Specialty Start Date End Date Podlogar, Thao, COOKY MACHINE OPERATOR.MAINTENANCE PLUMBER [address] [place] [address] [facility] 10/02/24 Cutting Machine Tender Helper Relationship Specialty Start Date End Date BashirtaqueriaThaoGEORGE.MAINTENANCE PLUMBER [address] [place] [address] [facility] 10/02/24 Team Status: Active Member Role/Relationship [...] Inactive Member Role/Relationship Status Dates Dr. Andreas Beunrostro MD Primary Care Provider Active Start: June [...] BE BASED ON THE PRIMARY CLINICAL RECORDS. [employer] [facility]. provides no warranty or guarantee of the accuracy or completeness of information in this document.
--- NOTE | 2025-09-19 18:46 | STRESSREP ---
Stress Test Report Exercise myocardial perfusion stress test. 65-year-old lady with a history of chest pain. Stress protocol: Resting EKG demonstrates normal sinus rhythm with a rate of 57 bpm resting blood pressure is 138/80 mmHg. The patient exercised according to the regular Leonidas protocol for a total duration of 6-1/2 minutes attaining a maximum heart rate of 122 bpm which was 79% of maximum predicted heart rate; the maximum workload was 8.7 metabolic equivalents. At rest there were no ST or T wave changes noted to suggest ischemia and at peak exercise upsloping ST changes only were noted which did not meet the criteria for ischemia. No clinical angina was noted the test was terminated due to the target heart rate being achieved/fatigue. The peak blood pressure was 216/94 mmHg. Rate-pressure product was [18,000]. Myocardial perfusion protocol. 11.9 mCi of technetium 99m sestamibi was injected at rest. The patient exercised according to regular Leonidas protocol for total duration of 6-1/2 minutes and at peak exercise 33.6 mCi of technetium 99m sestamibi was injected stress images were obtained stress and rest images were reconstructed in comparing the short axis vertical long and horizontal long axis. Gated images were also obtained. Perfusion SPECT analysis: Review of the stress images demonstrate normal uptake of tracer noted in all areas of the myocardium. The resting images similarly demonstrate normal uptake of tracer noted in all areas of the myocardium. No areas of reversibility are noted to suggest ischemia no previous infarct was noted. Gated SPECT analysis: The gated ejection fraction is 79%. Conclusion: Normal exercise myocardial perfusion stress test at a moderate workload.
== END | disposition home or self-care (01) ==
LOC: CVS 05:45
PROVIDERS: PCP Internal Medicine; Referring Provider Physician Assistant Medical; Visit Provider Physician Assistant Medical
DX: R07.9 Chest pain, unspecified (principal)
CPT/HCPCS: 78452; 93017; A9500; A4216

== ENCOUNTER → 2025-10-04 | Outpatient (CLI) | payer MEDICARE, MEDICAID, SELFPAY ==
[2025-10-04 17:31] LABS: Hematocrit 37.9 % (37-47); Hemoglobin 12.8 g/dL (12.0-15.0); Immature Granulocytes Count 0.020 X10^3/uL (0.0-0.0); Mean Corp Hgb Conc 33.8 g/dL (32-36); Mean Corpuscular Volume 92.2 fL (81-99); Mean Platelet Vol. 10.3 fl (6.2-12.0); NRBC Flagged by Analyzer 0 % (0-5); Platelet Count 258 K/mm3 (150-450); RBC Distribution Width CV 12.1 % (11.6-14.6); RBC Distribution Width SD 41.3 fl (35.1-43.9); Red Blood Count 4.11 M/mm3 (4.2-5.4); White Blood Count 10.3 K/mm3 (4.4-11.0)
[2025-10-04 17:42] LABS: AST(SGOT) 18 U/L (<=31); Alanine Aminotransfer ALT/SGPT 12 U/L (<=34); Albumin, Serum 4.0 g/dL (3.4-4.8); Alkaline Phosphatase 67 U/L (35-104); Anion Gap 10 (5-15); BUN 16 mg/dL (4-19); BUN/Creat Ratio 22.2 RATIO (10-20); CRP < 3.00 mg/L (0.0-3.0); Calcium,Total 9.1 mg/dL (7.6-11.0); Carbon Dioxide 26.9 mmol/L (21.0-32.0); Chloride 103 mmol/L (98-108); Globulin 2.6 g/dL (2.2-4.2); Glucose 104 mg/dL (70-99); Potassium 3.5 mmol/L (3.3-5.1)
== END | disposition home or self-care (01) ==
LOC: LAB 16:25
PROVIDERS: PCP Internal Medicine; Referring Provider Internal Medicine Gastroenterology; Visit Provider Internal Medicine Gastroenterology
DX: R19.7 Diarrhea, unspecified (principal)
CPT/HCPCS: 36415; 80053; 85025; 85652; 86140

== ENCOUNTER → 2025-10-06 | Outpatient (CLI) | payer MEDICARE, MEDICAID, SELFPAY | END | disposition home or self-care (01) | LOC: LABSPEC 08:25 | PROVIDERS: PCP Internal Medicine; Referring Provider Internal Medicine Gastroenterology; Visit Provider Internal Medicine Gastroenterology | DX: R39.0 Extravasation of urine (principal); R19.7 Diarrhea, unspecified | CPT/HCPCS: 83630; 87086; 87493 ==